=== PATIENT | male | born 1945 | race Caucasian/White ===

== ENCOUNTER 2016-07-09 01:57 | Inpatient (IN) | payer MEDICARE, BC ==
[2016-07-09] MEDS ORDERED: ceFAZolin 1,000 MG in DEXTROSE/WATER 1 50ML.BAG IVPB STA (02:07)
[2016-07-09] MEDS ORDERED: DIPH,PERTUS(ACELL)TETVAC-LF 0.5 ML VIAL IM ONE (02:07)
[2016-07-09 02:33] VITALS: RESP 18
[2016-07-09 02:39] LABS: ALT 33 U/L (21-72); AST 18 U/L (17-59); Alcohol <10 mg/dL; Alkaline Phosphatase 57 U/L (38-126); Amylase 45 U/L (30-110); Anion Gap 11 mmol/L; Blood Urea Nitrogen 14 mg/dL (9-20); Calcium 8.4 mg/dL (8.4-10.2); Carbon Dioxide 25 mmol/L (22-30); Chloride 107 mmol/L (98-107); Glucose 112 mg/dL (74-99); Non-African American GFR(MDRD) >60 (>60 ml/min/1.73 sqM); Potassium 3.4 mmol/L (3.5-5.1); Sodium 143 mmol/L (137-145); Total Bilirubin 1.3 mg/dL (0.2-1.3); Total Protein 6.3 g/dL (6.3-8.2)
[2016-07-09 02:40] LABS: Basophils # (A) 0.1 k/uL (0-0.2); Basophils % (A) 1 %; CH 31.2; CHCM 33.7; Eosinophils # (A) 0.1 k/uL (0-0.7); Eosinophils % (A) 2 %; HCT 54.8 % (39.0-53.0); Luc # (Auto) 0.24; Luc % (Auto) 3; Lymphocytes # (A) 2.1 k/uL (1.0-4.8); Lymphocytes % (A) 24 %; MCH 30.7 pg (25.0-35.0); MCHC 32.9 g/dL (31.0-37.0); MCV 93.3 fL (80.0-100.0); Mean Platelet Volume 8.1; Monocytes # (A) 0.7 k/uL (0-1.0); Monocytes % (A) 8 %; Neutrophils # (A) 5.4 k/uL (1.3-7.7); Neutrophils % (A) 63 %; RBC 5.88 m/uL (4.30-5.90); RDW 13.2 % (11.5-15.5); WBC 8.6 k/uL (3.8-10.6); WBC (Perox) 8.54
[2016-07-09] MEDS ORDERED: HYDROmorphone 1 MG/ML 1 ML SYRINGE IVP STA (02:42)
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
[2016-07-09 02:48] LABS: Creatine Kinase 56 U/L (55-170)
[2016-07-09] MEDS ORDERED: ONDANSETRON 4 MG/2 ML VIAL IVP PRN (02:58)
[2016-07-09 03:00] LABS: Partial Thromboplastin Time 32.6 sec (22.0-30.0); Prothrombin Time 54.4 sec (9.0-12.0)
[2016-07-09 03:01] LABS: INR 5.4 (<1.1)
[2016-07-09 03:02] LABS: Troponin I <0.012 ng/mL (0.000-0.034)
[2016-07-09] MEDS ORDERED: PHYTONADIONE ORAL 5 MG/5 ML ORAL.SYRG PO STA (03:04)
[2016-07-09] MEDS ORDERED: DILTIAZEM 5 MG/ML 5 ML VIAL IVP STA (03:10)
[2016-07-09] MEDS ORDERED: DIGOXIN 250 MCG/ML 2 ML AMP IVP ONE (03:16)
[2016-07-09] MEDS ORDERED: METOPROLOL SUCCINATE (ER) 25 MG TAB.ER.24H PO STA (03:19)
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
[2016-07-09] MEDS ORDERED: NALOXONE 0.4 MG/ML 1 ML VIAL IV PRN (03:45)
[2016-07-09] MEDS ORDERED: DILTIAZEM 125 MG in SODIUM CHLORIDE 0.9% 100 ML IV ONE (04:18)
[2016-07-09] MEDS: HYDROmorphone 1 MG/ML 1 ML SYRINGE IVP PRN ×7 (04:42→23:34)
[2016-07-09 06:00] VITALS: BMI 22.1
[2016-07-09] MEDS: D5-0.45% NACL WITH KCL 20MEQ/L 1,000 ML IV SCH ×2 (06:17→18:31)
[2016-07-09 06:27] LABS: CH 31.4; CHCM 34.1; HGB 16.7 gm/dL (13.0-17.5); MCH 30.3 pg (25.0-35.0); MCHC 32.7 g/dL (31.0-37.0); MCV 92.6 fL (80.0-100.0); Mean Platelet Volume 8.8; RBC 5.51 m/uL (4.30-5.90); RDW 13.5 % (11.5-15.5); WBC 10.5 k/uL (3.8-10.6)
[2016-07-09] MEDS: ceFAZolin 1,000 MG in DEXTROSE/WATER 1 50ML.BAG IVPB SCH ×4 (06:32→23:34)
[2016-07-09 06:39] LABS: Potassium 4.1 mmol/L (3.5-5.1)
[2016-07-09 06:44] LABS: INR 4.5 (<1.1); Prothrombin Time 44.8 sec (9.0-12.0)
[2016-07-09] MEDS ORDERED: FAMOTIDINE 20 MG/2 ML VIAL IV SCH (09:00)
[2016-07-09] MEDS: PHYTONADIONE ORAL 5 MG/5 ML ORAL.SYRG PO SCH ×2 (14:01→21:20)
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
[2016-07-09 16:13] LABS: Amorphous Sediment,Urine Rare /hpf; Appearance,Urine Clear (Clear); Bilirubin,Urine Negative (Negative); Calcium Oxalate Crystals,Urine Occasional /hpf; Glucose,Urine (UA) Negative (Negative); Ketones,Urine 1+ (Negative); Leukocyte Esterase,Urine Negative (Negative); Nitrite,Urine Negative (Negative); PH, Urine 5.5 (5.0-8.0); Particle Count 1060; Protein,Urine Negative (Negative); RBC,Urine 2 /hpf (0-5); UA Billing (MACRO vs. MICRO) MICRO; Urobilinogen,Urine <2.0 mg/dL (<2.0); WBC,Urine 2 /hpf (0-5)
[2016-07-09] MEDS: LISINOPRIL 10 MG TAB PO SCH (17:33)
[2016-07-09] MEDS: DIGOXIN 125 MCG TAB PO SCH (17:33)
[2016-07-09] MEDS: ATORVASTATIN 10 MG TAB PO SCH (21:20)
[2016-07-09] MEDS: METOPROLOL TARTRATE 50 MG TAB PO SCH (21:20)
[2016-07-09] MEDS: FAMOTIDINE 20 MG TAB PO SCH (21:21)
[2016-07-10] MEDS: HYDROmorphone 1 MG/ML 1 ML SYRINGE IVP PRN ×5 (04:58→21:29)
[2016-07-10] MEDS: D5-0.45% NACL WITH KCL 20MEQ/L 1,000 ML IV SCH ×2 (04:59→21:30)
[2016-07-10] MEDS: ceFAZolin 1,000 MG in DEXTROSE/WATER 1 50ML.BAG IVPB SCH ×4 (06:34→23:24)
[2016-07-10] MEDS: DIGOXIN 125 MCG TAB PO SCH (08:28)
[2016-07-10] MEDS: LISINOPRIL 10 MG TAB PO SCH (08:29)
[2016-07-10] MEDS: FAMOTIDINE 20 MG TAB PO SCH ×2 (08:29→21:28)
[2016-07-10] MEDS: METOPROLOL TARTRATE 50 MG TAB PO SCH ×2 (08:43→21:28)
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
--- NOTE | 2016-07-10 10:57 | ECHOF ---
Referral Reason:afib MEASUREMENTS -------- HEIGHT: 188.0 cm WEIGHT: 79.4 kg BP: 119/66 RVIDd: 3.1 cm (< 3.3) IVSd: 1.1 cm (0.6 - 1.1) LVIDd: 4.2 cm (3.9 - 5.3) LVPWd: 1.1 cm (0.6 - 1.1) IVSs: 1.9 cm LVIDs: 3.1 cm LVPWs: 1.8 cm LA Diam: 4.0 cm (2.7 - 3.8) LAESV Index (A-L): 17.48 ml/m LA Diam: 4.2 cm (2.7 - 3.8) MV EXCURSION: 21.844 mm (> 18.000) MV EF SLOPE: 193 mm/s (70 - 150) EPSS: 0.6 cm MV E Jamie: 0.94 m/s MV DecT: 158 ms MV A Jamie: 0.33 m/s MV E/A Ratio: 2.81 FINDINGS -------- Atrial fibrillation. This was a technically difficult study with suboptimal apical views. There is borderline concentric left ventricular hypertrophy. Overall left ventricular systolic function is normal with, an EF between 55 - 60 %. The right ventricle is normal in size. The left atrium is mildly dilated. The right atrial size is normal. Aortic valve is trileaflet and is mildly thickened. The mitral valve leaflets are mildly thickened. Mild mitral annular calcification present. There is trace mitral regurgitation. Trace tricuspid regurgitation present. The pulmonic valve was not well visualized. The aortic root size is normal. The inferior vena cava is dilated with no significant inspiratory collapse which is consistent estimated right atrial pressure of >15 mmHg. Echo free space may represent effusion or a pericardial fat pad. CONCLUSIONS -------- 1. Atrial fibrillation. 2. Mild mitral annular calcification present. 3. There is trace mitral regurgitation. 4. Trace tricuspid regurgitation present. 5. The pulmonic valve was not well visualized. 6. The aortic root size is normal. 7. The inferior vena cava is dilated with no significant inspiratory collapse which is consistent estimated right atrial pressure of >15 mmHg. 8. Echo free space may represent effusion or a pericardial fat pad. 9. This was a technically difficult study with suboptimal apical views. 10. There is borderline concentric left ventricular hypertrophy. 11. Overall left ventricular systolic function is normal with, an EF between 55 - 60 %. 12. The right ventricle is normal in size. 13. The left atrium is mildly dilated. 14. The right atrial size is normal. 15. Aortic valve is trileaflet and is mildly thickened. 16. The mitral valve leaflets are mildly thickened. 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
[2016-07-10 11:40] LABS: Hemoglobin A1C 5.5 % (4.2-6.1)
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
[2016-07-10 14:39] LABS: INR 1.3 (<1.1); Prothrombin Time 12.5 sec (9.0-12.0)
[2016-07-10] MEDS: ATORVASTATIN 10 MG TAB PO SCH (21:28)
[2016-07-10] MEDS: HYDROcodone/APAP 5-325MG 1 EACH TAB PO PRN (23:23)
[2016-07-11] MEDS: HYDROmorphone 1 MG/ML 1 ML SYRINGE IVP PRN (03:33)
[2016-07-11] MEDS: HYDROcodone/APAP 5-325MG 1 EACH TAB PO PRN (06:04)
[2016-07-11] MEDS: D5-0.45% NACL WITH KCL 20MEQ/L 1,000 ML IV SCH (06:05)
[2016-07-11] MEDS: ceFAZolin 1,000 MG in DEXTROSE/WATER 1 50ML.BAG IVPB SCH ×2 (06:05→11:22)
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
[2016-07-11] MEDS: METOPROLOL TARTRATE 50 MG TAB PO SCH (08:46)
[2016-07-11] MEDS: FAMOTIDINE 20 MG TAB PO SCH (08:46)
[2016-07-11] MEDS: LISINOPRIL 10 MG TAB PO SCH (08:46)
[2016-07-11] MEDS: DIGOXIN 125 MCG TAB PO SCH (08:46)
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
[2016-07-11 14:36] VITALS: BP 156/86; PULSE 86; TEMP 98
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
== END 2016-07-11 13:12 | disposition home or self-care (01) | DRG 563 ==
LOC: EC 01:57 → 6SEL 02:52
PROVIDERS: ADMIT Surgery; ATTEND Surgery
PROC: 3E0234Z Introduction of Serum, Toxoid and Vaccine into Muscle, Percutaneous Approach (ICD-10-PCS; principal; 2016-07-09)
PROC: 2W3JX1Z Immobilization of Right Finger using Splint (ICD-10-PCS; 2016-07-09)
DX: S62.612B Displaced fracture of proximal phalanx of right middle finger, initial encounter for open fracture (principal); I95.9 Hypotension, unspecified; I48.2 Chronic atrial fibrillation; I48.1 Persistent atrial fibrillation; J44.9 Chronic obstructive pulmonary disease, unspecified; Z89.611 Acquired absence of right leg above knee; D75.1 Secondary polycythemia; I25.10 Atherosclerotic heart disease of native coronary artery without angina pectoris; T46.4X5A Adverse effect of angiotensin-converting-enzyme inhibitors, initial encounter; R79.1 Abnormal coagulation profile; T45.515A Adverse effect of anticoagulants, initial encounter; S61.220A Laceration with foreign body of right index finger without damage to nail, initial encounter; I10 Essential (primary) hypertension; S66.911A Strain of unspecified muscle, fascia and tendon at wrist and hand level, right hand, initial encounter; I73.9 Peripheral vascular disease, unspecified; I45.10 Unspecified right bundle-branch block; R40.2410 Glasgow coma scale score 13-15, unspecified time; M16.0 Bilateral primary osteoarthritis of hip; F32.9 Major depressive disorder, single episode, unspecified; F43.10 Post-traumatic stress disorder, unspecified; K21.9 Gastro-esophageal reflux disease without esophagitis; G47.30 Sleep apnea, unspecified; E78.5 Hyperlipidemia, unspecified; N40.0 Benign prostatic hyperplasia without lower urinary tract symptoms; F17.200 Nicotine dependence, unspecified, uncomplicated; H91.90 Unspecified hearing loss, unspecified ear; Z79.01 Long term (current) use of anticoagulants; Z79.02 Long term (current) use of antithrombotics/antiplatelets; Z91.041 Radiographic dye allergy status; Z86.718 Personal history of other venous thrombosis and embolism; Z82.49 Family history of ischemic heart disease and other diseases of the circulatory system; Z95.5 Presence of coronary angioplasty implant and graft; Z88.2 Allergy status to sulfonamides; Z87.828 Personal history of other (healed) physical injury and trauma; Z87.01 Personal history of pneumonia (recurrent); Z91.040 Latex allergy status; Z79.891 Long term (current) use of opiate analgesic; Z79.899 Other long term (current) drug therapy; Z23 Encounter for immunization; Z81.8 Family history of other mental and behavioral disorders; Z63.4 Disappearance and death of family member; Z95.820 Peripheral vascular angioplasty status with implants and grafts; Y22.XXXA Handgun discharge, undetermined intent, initial encounter; Y92.9 Unspecified place or not applicable; S20.319A Abrasion of unspecified front wall of thorax, initial encounter
CPT/HCPCS: 36415; 71010; 80051; 80053; 80162; 80306; 80320; 81001; 82150; 82550; 82553; 83036; 83690; 84439; 84443; 84484; 85025; 85027; 85610; 85730; 86850; 86900; 86901; 90471; 90715; 93005; 93306; 96365; 96367; 96375; 96376; 99291

== ENCOUNTER → 2018-01-17 | Outpatient (CLI) | payer MEDICARE, BC ==
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
== END | disposition home or self-care (01) ==
LOC: RADXRMAIN 10:02
PROVIDERS: ATTEND Internal Medicine
DX: M12.811 Other specific arthropathies, not elsewhere classified, right shoulder (principal); J43.9 Emphysema, unspecified; S22.41XA Multiple fractures of ribs, right side, initial encounter for closed fracture

== ENCOUNTER 2019-01-05 15:50 | Emergency (ER) | payer MEDICARE, BC ==
[2019-01-05 16:04] VITALS: BP 145/74; PULSE 78; RESP 18; TEMP 98.3
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
--- NOTE | 2019-01-05 17:49 | XR ---
EXAMINATION TYPE: XR Hip LT and AP Pelvis DATE OF EXAM: 01/05/2019 COMPARISON: NONE HISTORY: Trauma and pain TECHNIQUE: A single AP view of the pelvis is obtained. Two views of the left hip are obtained. FINDINGS: There is no acute fracture/dislocation evident in the pelvis. The hip and sacroiliac join ts appear symmetric and unremarkable. The overlying soft tissue appears unremarkable. Two views of left hip show no acute fracture or dislocation. No focal lytic or sclerotic lesion seen in the proximal left femur. The overlying soft tissue is unremarkable. There is joint space loss a nd subchondral sclerosis in the left hip, prominence of the femoral neck laterally may be indicative of femoral acetabular impingement. Patient shows aorta stent graft changes, embolization along the in ternal iliac artery on the right. Scattered metallic densities bilaterally. IMPRESSION: There is no acute fracture or dislocation in the pelvis or left hip. 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
--- NOTE | 2019-01-05 17:55 | XR ---
Chest x-ray with left RIBS HISTORY: Trauma and pain Frontal view of the chest, 4 views of the left ribs submitted and correlated to prior chest x-ray 06/12 Metallic foreign bodies over the right chest are stable. No evident airspace disease, pneumothorax, o r pleural effusion. There is elevation of the right hemidiaphragm. Cardiomediastinal silhouette, pulm onary vascularity and elaine are stable. No displaced rib fracture. Postop changes noted in the abdomen , patient is post aortic stent graft. IMPRESSION: Postop changes, posttraumatic changes are chronic. Bone scan could be performed for incre ased sensitivity to assess for nondisplaced fracture of the ribs as indicated.
[2019-01-05] MEDS ORDERED: IBUPROFEN 800 MG TAB PO STA (17:58)
== END 2019-01-05 18:24 | disposition home or self-care (01) ==
LOC: EC 15:50
DX: S20.212A Contusion of left front wall of thorax, initial encounter (principal); S70.02XA Contusion of left hip, initial encounter; I48.91 Unspecified atrial fibrillation; G47.30 Sleep apnea, unspecified; E78.5 Hyperlipidemia, unspecified; F17.200 Nicotine dependence, unspecified, uncomplicated; Z79.01 Long term (current) use of anticoagulants; Z79.899 Other long term (current) drug therapy; Z79.02 Long term (current) use of antithrombotics/antiplatelets; Z95.5 Presence of coronary angioplasty implant and graft; Z89.611 Acquired absence of right leg above knee; Z95.828 Presence of other vascular implants and grafts; Z86.718 Personal history of other venous thrombosis and embolism; W19.XXXA Unspecified fall, initial encounter; Y92.009 Unspecified place in unspecified non-institutional (private) residence as the place of occurrence of the external cause
CPT/HCPCS: 73502; 99283

== ENCOUNTER 2022-11-21 10:08 | Emergency (ER) | payer MEDICARE, BC ==
[2022-11-21 10:24] VITALS: TEMP 97.9
[2022-11-21 12:07] LABS: Basophils % (A) 1 %; Eosinophils # (A) 0.2 k/uL (0-0.7); Eosinophils % (A) 2 %; HCT 47.7 % (39.0-53.0); HGB 15.5 gm/dL (13.0-17.5); Lymphocytes # (A) 1.2 k/uL (1.0-4.8); Lymphocytes % (A) 18 %; MCH 29.8 pg (25.0-35.0); MCHC 32.4 g/dL (31.0-37.0); MCV 91.8 fL (80.0-100.0); Mean Platelet Volume 8.2; Monocytes # (A) 0.6 k/uL (0-1.0); Monocytes % (A) 9 %; Neutrophils # (A) 4.7 k/uL (1.3-7.7); Neutrophils % (A) 69 %; Platelet Count 166 k/uL (150-450); RDW 14.3 % (11.5-15.5); WBC 6.8 k/uL (3.8-10.6)
--- NOTE | 2022-11-21 12:22 | XR ---
EXAMINATION TYPE: XR foot complete LT, XR ankle complete LT DATE OF EXAM: 11/21/2022 11:57 AM INDICATION: Patient age:Male; 77 years old; Reason for study: L inner ankle wound; PHH. COMPARISON: None TECHNIQUE: The left foot and ankle are examined in the AP, oblique, and lateral projections. FINDINGS: No evidence of any acute osseous pathology. No osseous erosions. No radiopaque foreign body. Soft ti ssue defect along the medial aspect of the left ankle. Joints are preserved. IMPRESSION: 1. No evidence of acute fracture or osseous erosions. 2. Soft tissue wound along the medial aspect of the left ankle. No radiopaque foreign body.
[2022-11-21 12:25] LABS: ALT 14 U/L (4-49); AST 18 U/L (17-59); African American GFR (CKD) >90 (>60 ml/min/1.73 sqM); Albumin 3.5 g/dL (3.5-5.0); Alkaline Phosphatase 60 U/L (38-126); Anion Gap 7 mmol/L; Blood Urea Nitrogen 10 mg/dL (9-20); Calcium 8.8 mg/dL (8.4-10.2); Carbon Dioxide 27 mmol/L (22-30); Chloride 101 mmol/L (98-107); Glucose 87 mg/dL (74-99); Non-African American GFR(CKD) 78 (>60 ml/min/1.73 sqM); Potassium 4.5 mmol/L (3.5-5.1); Sodium 135 mmol/L (137-145); Total Bilirubin 1.5 mg/dL (0.2-1.3); Total Protein 5.8 g/dL (6.3-8.2)
[2022-11-21] MEDS ORDERED: NEOMYCIN-BACITRACIN-POLY OINT 14 GM TUBE TOPICAL STA (14:00)
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
[2022-11-21 14:45] VITALS: BP 134/78; PULSE 74; RESP 18
== END 2022-11-21 14:45 | disposition home or self-care (01) ==
LOC: EC 10:08
DX: L03.119 Cellulitis of unspecified part of limb (principal); I48.91 Unspecified atrial fibrillation; E78.5 Hyperlipidemia, unspecified; G47.30 Sleep apnea, unspecified; F32.A Depression, unspecified; F17.200 Nicotine dependence, unspecified, uncomplicated; Z79.01 Long term (current) use of anticoagulants; Z79.899 Other long term (current) drug therapy
CPT/HCPCS: 36415; 80053; 83605; 85025; 87040; 99283

== ENCOUNTER 2023-03-25 14:06 | Inpatient (IN) | payer MEDICARE, BC ==
[2023-03-25] MEDS ORDERED: SODIUM CHLORIDE 0.9% 1,000 ML IV STA (14:26)
[2023-03-25 15:13] LABS: Basophils % (A) 0 %; Eosinophils # (A) 0.1 k/uL (0-0.7); Eosinophils % (A) 1 %; HCT 41.7 % (39.0-53.0); HGB 14.1 gm/dL (13.0-17.5); Lymphocytes # (A) 1.7 k/uL (1.0-4.8); Lymphocytes % (A) 9 %; MCH 31.3 pg (25.0-35.0); MCHC 33.9 g/dL (31.0-37.0); MCV 92.4 fL (80.0-100.0); Mean Platelet Volume 9.8; Monocytes # (A) 1.6 k/uL (0-1.0); Monocytes % (A) 8 %; Neutrophils # (A) 16.2 k/uL (1.3-7.7); Neutrophils % (A) 81 %; Platelet Count 151 k/uL (150-450); RBC 4.51 m/uL (4.30-5.90); WBC 20.1 k/uL (3.8-10.6)
[2023-03-25] MEDS ORDERED: DILTIAZEM DRIP BOLUS FROM BAG 1 MG SOLN IV ONE (15:20)
[2023-03-25 15:23] LABS: ALT 19 U/L (4-49); AST 21 U/L (17-59); African American GFR (CKD) 27 (>60 ml/min/1.73 sqM); Albumin 3.9 g/dL (3.5-5.0); Alkaline Phosphatase 50 U/L (38-126); Anion Gap 12 mmol/L; Blood Urea Nitrogen 64 mg/dL (9-20); Carbon Dioxide 25 mmol/L (22-30); Chloride 95 mmol/L (98-107); Glucose 131 mg/dL (74-99); INR 3.5 (<1.2); Magnesium 2.4 mg/dL (1.6-2.3); Non-African American GFR(CKD) 23 (>60 ml/min/1.73 sqM); Partial Thromboplastin Time 34.3 sec (22.0-30.0); Phosphorus 5.8 mg/dL (2.5-4.5); Potassium 4.3 mmol/L (3.5-5.1); Prothrombin Time 34.6 sec (10.0-12.5); Sodium 132 mmol/L (137-145); Total Bilirubin 2.3 mg/dL (0.2-1.3); Total Protein 6.2 g/dL (6.3-8.2)
[2023-03-25] MEDS: DILTIAZEM 125 MG in SODIUM CHLORIDE 0.9% 100 ML IV SCH (15:51)
--- NOTE | 2023-03-25 15:57 | ED ---
Fall HPI - General Chief Complaint: Fall Stated Complaint: falling down daily Time Seen by Provider: 03/25/23 14:18 Source: patient, family, RN notes reviewed Mode of arrival: ambulatory Limitations: physical limitation - History of Present Illness Initial Comments: 77-year-old male presents emergency Department chief complaint of generalized weakness, increasing fallen. Patient states that he normally is in his wheelchair as she's had a right AKA patient states she's been using some crutches and states that he notices had increased weakness, . He states they have a fall complaint of bilateral hip, groin pain, head pain. Reports his been very confused and taken his medications well, eating and drinking patient has been some palpitations. Patient denies chest pain - Related Data Home Medications Medication Instructions Recorded Confirmed Atorvastatin [Lipitor] 10 mg PO DAILY 07/09/16 03/25/23 Digoxin [Digitek] 125 mcg PO DAILY 07/09/16 03/25/23 Warfarin [Coumadin] 5 mg PO DAILY 01/05/19 03/25/23 Metoprolol Tartrate [Lopressor] 50 mg PO DAILY 03/25/23 03/25/23 lisinopriL [Zestril] 10 mg PO DAILY 03/25/23 03/25/23 Allergies Allergy/AdvReac Type Severity Reaction Status Date / Time No Known Allergies Allergy Verified 03/25/23 18:20 Review of Systems ROS Statement: Those systems with pertinent positive or pertinent negative responses have been documented in the HPI. ROS Other: All systems not noted in ROS Statement are negative. Past Medical History Past Medical History: Atrial Fibrillation, Deep Vein Thrombosis (DVT), GERD/Reflux, Hearing Disorder / Deafness, Hyperlipidemia, Osteoarthritis (OA), Pneumonia, Prostate Disorder, Sleep Apnea/CPAP/BIPAP Additional Past Medical History / Comment(s): DVT History of Any Multi-Drug Resistant Organisms: None Reported Past Surgical History: Heart Catheterization With Stent Additional Past Surgical History / Comment(s): femerol bypass right and left, removed steel from right lung and retired up diaphram, right above knee amputee Date of Last Stent Placement:: unknown Past Psychological History: Depression, PTSD Smoking Status: Current some day smoker Past Alcohol Use History: Occasional Past Drug Use History: None Reported - Past Family History Mother Family Medical History: Myocardial Infarction ([place]) Father Family Medical History: Dementia General Exam Limitations: no limitations General appearance: alert, in no apparent distress Head exam: Present: atraumatic, normocephalic, normal inspection Eye exam: Present: normal appearance, PERRL, EOMI. Absent: scleral icterus, conjunctival injection, periorbital swelling ENT exam: Present: normal exam, normal oropharynx, mucous membranes moist Neck exam: Present: normal inspection, full ROM. Absent: tenderness, meningismus, lymphadenopathy Respiratory exam: Present: normal lung sounds bilaterally. Absent: respiratory distress, wheezes, rales, rhonchi, stridor Cardiovascular Exam: Present: regular rate, normal rhythm, normal heart sounds. Absent: systolic murmur, diastolic murmur, rubs, gallop, clicks GI/Abdominal exam: Present: soft, normal bowel sounds. Absent: distended, tenderness, guarding, rebound, rigid Neurological exam: Present: alert Skin exam: Present: warm, dry, intact, normal color. Absent: rash Course Vital Signs 03/25/23 03/25/23 03/25/23 14:08 15:19 15:30 Temperature 98 F Pulse Rate 52 L 138 H 125 H Respiratory 20 13 17 Rate Blood Pressure 118/74 123/81 O2 Sat by Pulse 96 63 L 94 L Oximetry 03/25/23 03/25/23 03/25/23 16:00 16:30 17:00 Temperature Pulse Rate 114 H 111 H Respiratory 15 17 Rate Blood Pressure 132/69 120/87 O2 Sat by Pulse 95 Oximetry 03/25/23 03/25/23 17:30 18:00 Temperature 98.9 F Pulse Rate 107 H 115 H Respiratory 20 16 Rate Blood Pressure 126/69 O2 Sat by Pulse 97 Oximetry Medical Decision Making - Medical Decision Making Was pt. sent in by a medical professional or institution (, PA, DEPUTY CLERK OF SUPERIOR COURT, urgent care, hospital, or half-way...) When possible be specific @ -No Did you speak to anyone other than the patient for history (EMS, parent, family, police, friend...)? What history was obtained from this source @ -Family providing past medical history Did you review nursing and triage notes (agree or disagree)? Why? @ -I reviewed and agree with nursing and triage notes Were old charts reviewed (outside hosp., previous admission, EMS record, old EKG, old radiological studies, urgent care reports/EKG's, half-way records)? Report findings @ -No old charts were reviewed Differential Diagnosis (chest pain, altered mental status, abdominal pain women, abdominal pain men, vaginal bleeding, weakness, fever, dyspnea, syncope, headache, dizziness, GI bleed, back pain, seizure, CVA, palpatations, mental health, musculoskeletal)? @ -Differential Weakness: Hypoglycemia, shock, sepsis, hyponatremia, anemia, infection, [place], ETOH, adverse medicine reaction, overdose, stroke, this is not meant to be an all-inclusive list.le EKG interpreted by me (3pts min.). @ -As above X-rays interpreted by me (1pt min.). @ -Pelvis x-ray shows no acute process, chest x-ray no acute process CT interpreted by me (1pt min.). @ -CT brain, C-spine shows no intracranial hemorrhage, mass effect or cervical fracture U/S interpreted by me (1pt. min.). @ -None done What testing was considered but not performed or refused? (CT, X-rays, U/S, labs)? Why? @ -None What meds were considered but not given or refused? Why? @ -None Did you discuss the management of the patient with other professionals (professionals i.e. , PA, DEPUTY CLERK OF SUPERIOR COURT, lab, RT, psych nurse, social sciences chair, bearingizer, teacher, mounted police officer, case management social worker)? Give summary @ -No Was smoking cessation discussed for >3mins.? @ -No Was critical care preformed (if so, how long)? @ -[35 Were there social determinants of health that impacted care today? How? (Homelessness, low income, unemployed, alcoholism, drug addiction, transportation, low edu. Level, literacy, decrease access to med. care, [facility], rehab)? @ -No Was there de-escalation of care discussed even if they declined (Discuss DNR or withdrawal of care, Hospice)? DNR status @ -No What co-morbidities impacted this encounter? (DM, HTN, Smoking, COPD, CAD, Cancer, CVA, ARF, Chemo, Hep., AIDS, mental health diagnosis, sleep apnea, morbid obesity)? @ -Vascular disease, hyperlipidemia A. fib Was patient admitted / discharged? Hospital course, mention meds given and route, prescriptions, significant lab abnormalities, going to OR and other pertinent info. @ -admitted patient's found to be in A. fib RVR, acute dehydration with significant leukocytosis and acute renal failure. Patient started on maintenanc e fluids, Cardizem there is no source for patient's leukocytosis at this time patient still pending urinalysis. Undiagnosed new problem with uncertain prognosis? @ -No Drug Therapy requiring intensive monitoring for toxicity (Heparin, Nitro, I nsulin, Cardizem)? @ -Cardizem Were any procedures done? @ -No Diagnosis/symptom? @ -Acute kidney injury, A. fib RVR, weakness, falls Acute, or Chronic, or Acute on Chronic? @ -Acute Uncomplicated (without systemic symptoms) or Complicated (systemic symptoms)? @ -[Complicated Side effects of treatment? @ -No Exacerbation, Progression, or Severe Exacerbation? @ -No Poses a threat to life or bodily function? How? (Chest pain, [place], [place], pneumonia, PE, COPD, DKA, ARF, appy, cholecystitis, CVA, Diverticulitis, Homicidal, Suicidal, threat to staff... and all critical care pts) @ -Yes - Lab Data Result diagrams: 03/25/23 14:55 03/26/23 08:51 Lab Results 03/25/23 03/25/23 03/25/23 Range/Units 14:55 14:55 14:55 WBC 20.1 H (3.8-10.6) k/uL RBC 4.51 (4.30-5.90) m/uL Hgb 14.1 (13.0-17.5) gm/dL Hct 41.7 (39.0-53.0) % MCV 92.4 (80.0-100.0) fL MCH 31.3 (25.0-35.0) pg MCHC 33.9 (31.0-37.0) g/dL RDW 14.0 (11.5-15.5) % Plt Count 151 (150-450) k/uL MPV 9.8 Neutrophils % 81 % Lymphocytes % 9 % Monocytes % 8 % Eosinophils % 1 % Basophils % 0 % Neutrophils # 16.2 H (1.3-7.7) k/uL Lymphocytes # 1.7 (1.0-4.8) k/uL Monocytes # 1.6 H (0-1.0) k/uL Eosinophils # 0.1 (0-0.7) k/uL Basophils # 0.0 (0-0.2) k/uL PT 34.6 H (10.0-12.5) sec INR 3.5 H (<1.2) APTT 34.3 H (22.0-30.0) sec Sodium 132 L (137-145) mmol/L Potassium 4.3 (3.5-5.1) mmol/L Chloride 95 L (98-107) mmol/L Carbon Dioxide 25 (22-30) mmol/L Anion Gap 12 mmol/L BUN 64 H (9-20) mg/dL Creatinine 2.59 H (0.66-1.25) mg/dL Est GFR (CKD-EPI)AfAm 27 (>60 ml/min/1.73 sqM) Est GFR (CKD-EPI)NonAf 23 (>60 ml/min/1.73 sqM) Glucose 131 H (74-99) mg/dL Lactic Ac Sepsis Rflx Plasma Lactic Acid Aiden (0.7-2.0) mmol/L Calcium 9.0 (8.4-10.2) mg/dL Phosphorus 5.8 H (2.5-4.5) mg/dL Magnesium 2.4 H (1.6-2.3) mg/dL Total Bilirubin 2.3 H (0.2-1.3) mg/dL AST 21 (17-59) U/L ALT 19 (4-49) U/L Alkaline Phosphatase 50 (38-126) U/L Troponin I (0.000-0.034) ng/mL Total Protein 6.2 L (6.3-8.2) g/dL Albumin 3.9 (3.5-5.0) g/dL 03/25/23 03/25/23 03/25/23 Range/Units 14:55 14:55 16:04 WBC (3.8-10.6) k/uL RBC (4.30-5.90) m/uL Hgb (13.0-17.5) gm/dL Hct (39.0-53.0) % MCV (80.0-100.0) fL MCH (25.0-35.0) pg MCHC (31.0-37.0) g/dL RDW (11.5-15.5) % Plt Count (150-450) k/uL MPV Neutrophils % % Lymphocytes % % Monocytes % % Eosinophils % % Basophils % % Neutrophils # (1.3-7.7) k/uL Lymphocytes # (1.0-4.8) k/uL Monocytes # (0-1.0) k/uL Eosinophils # (0-0.7) k/uL Basophils # (0-0.2) k/uL PT (10.0-12.5) sec INR (<1.2) APTT (22.0-30.0) sec Sodium (137-145) mmol/L Potassium (3.5-5.1) mmol/L Chloride (98-107) mmol/L Carbon Dioxide (22-30) mmol/L Anion Gap mmol/L BUN (9-20) mg/dL Creatinine (0.66-1.25) mg/dL Est GFR (CKD-EPI)AfAm (>60 ml/min/1.73 sqM) Est GFR (CKD-EPI)NonAf (>60 ml/min/1.73 sqM) Glucose (74-99) mg/dL Lactic Ac Sepsis Rflx Y Plasma Lactic Acid Aiden 3.4 H* (0.7-2.0) mmol/L Calcium (8.4-10.2) mg/dL Phosphorus (2.5-4.5) mg/dL Magnesium (1.6-2.3) mg/dL Total Bilirubin (0.2-1.3) mg/dL AST (17-59) U/L ALT (4-49) U/L Alkaline Phosphatase (38-126) U/L Troponin I 0.023 (0.000-0.034) ng/mL Total Protein (6.3-8.2) g/dL Albumin (3.5-5.0) g/dL - EKG Data -: EKG Interpreted by Me EKG Comments: EKG performed at 15:10 atrial fibrillation with a rate of 125 QRS 100 QTC/QTc 272/347 Critical Care Time Critical Care Time: Yes Total Critical Care Time: 35 Disposition Clinical Impression: Multiple falls, Atrial fibrillation with RVR, Acute kidney injury, Leukocytosis Disposition: ADMITTED IP TO THIS [facility] Condition: [facility] Time of Disposition: 17:40
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
--- NOTE | 2023-03-25 17:08 | XR ---
EXAMINATION TYPE: XR pelvis AP view DATE OF EXAM: 03/25/2023 4:05 PM CLINICAL INDICATION:Male, 77 years old with history of fall; [facility] COMPARISON: 01/19/2015 TECHNIQUE: The pelvis was examined in a single projection. FINDINGS: No definite acute fracture lucency or significant malalignment. Degenerative changes of the left more than right femoral acetabular joint. Distal end of aortoiliac stent graft again seen, with likely vascular coils in the right pelvis. Surgical clips in the mid to lower pelvis and bilateral i nguinal regions. IMPRESSION: No acute fracture or dislocation identified, on this single view of the pelvis.
[2023-03-25] MEDS ORDERED: NALOXONE 0.4 MG/ML 1 ML VIAL IV PRN (17:40)
[2023-03-25] MEDS ORDERED: ACETAMINOPHEN TAB 325 MG TAB PO PRN (17:40)
[2023-03-25] MEDS ORDERED: FAMOTIDINE 20 MG/2 ML VIAL IV STA (18:21)
[2023-03-25] MEDS ORDERED: CALCIUM CARBONATE 500 MG CHEWABLE PO PRN (18:21)
[2023-03-25] MEDS: SODIUM CHLORIDE 0.9% 1,000 ML IV SCH (18:29)
--- NOTE | 2023-03-25 18:35 | CT ---
EXAMINATION TYPE: CT brain cspine wo con CT DLP: mGycm, Automated exposure control for dose reduction was used. DATE OF EXAM: 03/25/2023 4:26 PM COMPARISON: None. CLINICAL INDICATION:Male, 77 years old with history of pain; TECHNIQUE: Brain: Multiple axial CT images of the brain were obtained without IV contrast. Cspine: Axial CT images from the skull base to the inferior aspect of T2 we obtained without intraven ous contrast. Coronal and sagittal reformatted images were also reviewed. FINDINGS: Brain: Extra-axial spaces: No abnormal extra-axial fluid collections. Ventricular system: Dilatation in proportion to cerebral atrophy. Cerebral parenchyma: No acute intraparenchymal hemorrhage or mass effect. The guy-white junction is well differentiated. Moderate generalized atrophy. Focal atrophy or possible arachnoid cyst along th e right posterior falx. Patchy white matter hypoattenuation throughout the bilateral cerebral white m atter, nonspecific most likely related to chronic microvascular ischemic changes. Cerebellum: Moderate atrophy. Mass effect: No evidence of midline shift. Intracranial vasculature: Atherosclerotic calcifications of the intracranial vessels, particularly ne ar the skull base. Soft tissues: Normal. Calvarium/osseous structures: No depressed skull fracture. Paranasal sinuses and mastoid air cells: Clear. Visualized orbits: Orbital contents are intact. Cervical spine: Fracture: None. Osseous structures, spinal canal/neural foraminal: Moderate multilevel degenerative disc disease with disc space narrowing and marginal osteophytosis greatest at the C4-C5, C5-C6, C6-C7 levels, with at least moderate canal and neural foraminal narrowing at these levels. Vertebral alignment: AP alignment appears within normal limits. Straightening of the normal cervical lordosis, likely degenerative. Neck soft tissues: Prevertebral soft tissues are within normal limits. Other: Visualized airway is patent. Moderate emphysematous changes in the lung apices. Atheroscleroti c calcifications along the aortic arch, bilateral cervical carotid arteries and right vertebral arter y. IMPRESSION: 1. No acute intracranial CT abnormality. 2. Moderate generalized brain atrophy and chronic microvascular ischemic changes. 3. No evidence of acute cervical spine fracture or traumatic malalignment. 4. Moderate cervical spondylosis. 5. Pulmonary emphysema.
[2023-03-25 20:11] LABS: Glucose,Whole Blood 178 mg/dL (70-110)
[2023-03-25] MEDS ORDERED: WARFARIN 0.5 MG TAB PO ONE (21:00)
[2023-03-26 06:05] LABS: Glucose,Whole Blood 129 mg/dL (70-110)
[2023-03-26] MEDS: INSULIN ASPART (NovoLOG) 100 UNIT/ML VIAL SQ SCH ×4 (06:29→20:42)
[2023-03-26] MEDS: DILTIAZEM 125 MG in SODIUM CHLORIDE 0.9% 100 ML IV SCH (06:31)
[2023-03-26] MEDS: SODIUM CHLORIDE 0.9% 1,000 ML IV SCH (06:32)
[2023-03-26] MEDS: DIGOXIN 125 MCG TAB PO SCH (08:18)
[2023-03-26] MEDS: METOPROLOL TARTRATE 50 MG TAB PO SCH ×2 (08:18→20:50)
[2023-03-26] MEDS ORDERED: METOPROLOL TARTRATE 50 MG TAB PO SCH (09:00)
[2023-03-26] MEDS ORDERED: ATORVASTATIN 10 MG TAB PO SCH (09:00)
[2023-03-26] MEDS ORDERED: lisinopriL 10 MG TAB PO SCH (09:00)
[2023-03-26] MEDS ORDERED: WARFARIN 5 MG TAB PO SCH (09:00)
--- NOTE | 2023-03-26 09:06 | XR ---
EXAMINATION TYPE: XR chest 1V portable DATE OF EXAM: 03/26/2023 COMPARISON: 03/25/2023 HISTORY: Cough TECHNIQUE: Single frontal view of the chest is obtained. FINDINGS: There are metallic foreign bodies overlying the right chest and abdomen. Limited inspirati on with subsegmental atelectasis at the left lung base. Underlying COPD. No pneumothorax or interstit ial edema. Bilateral AC joint arthropathy. Atherosclerotic changes of the aorta. IMPRESSION: 1. COPD with basilar atelectasis favored over pneumonia.
--- NOTE | 2023-03-26 09:28 | P.CRDCN ---
History of Present Illness History of present illness: HISTORY OF PRESENT ILLNESS: This is a 77-year-old male with a past medical history significant for right AKA, atrial fibrillation, hypertension, hyperlipidemia, and questionable CAD with multiple stenting per patient. Patient does not follow with a wrapper leaf inspector. We have been asked to see the patient in consultation for A. fib with RVR. Patient examined at the bedside. Patient initially presented to the hospital after sustaining a fall. He states that he fell at home on his concrete and laid there for 5-6 hours before he was able to get a neighbor to help him. The patient currently denies any chest pain or pressure. He reports having some mild shortness of breath at home recently but at the time of examination he denies any shortness of breath. He denies any dizziness or lightheadedness. He denies any palpitations. The patient was found to be in A. fib with RVR. He was started on IV Cardizem. This morning he remains in nature fibrillation with a heart rate around 100. His Cardizem drip is infusing at 10 mg an hour. Patient was also found to have acute kidney injury with a creatinine of 2.59 on admission and supratherapeutic INR with INR of 3.5. * EKG reveals atrial fibrillation with RVR * Chest xray negative for acute process * Laboratory data: WBC 20.1. Hemoglobin 14.1. Platelet count 151. INR 3.5. Sodium 132. Potassium 4.3. BUN 64. Creatinine 2.59. Troponin negative 3. * Current home cardiac medications include digoxin 125 g daily, Lipitor 10 mg daily, metoprolol tartrate 50 mg daily, lisinopril 10 mg daily, and warfarin 5 mg daily * Most recent echocardiogram obtained in 2017 revealed ejection fraction 55-60%, trace MR, trace TR * Cardiac catheterization history: Unknown REVIEW OF SYSTEMS: At the time of my exam: CONSTITUTIONAL: Denies fever or chills. HEENT: Denies blurred vision, vision changes, or eye pain. Denies hemoptysis CARDIOVASCULAR: Denies chest pain. Denies orthopnea. Denies PND. Denies palpitations RESPIRATORY: Denies shortness of breath. GASTROINTESTINAL: Denies abdominal pain. Denies nausea or vomiting. HEMATOLOGIC: Denies bleeding disorders. GENITOURINARY: Denies any blood in urine. SKIN: Denies pruitis. Denies rash. PHYSICAL EXAM: VITAL SIGNS: Reviewed. GENERAL: Well-developed in no acute distress. HEENT: Head is normocephalic. Pupils are equal, round. Sclerae anicteric. Mucous membranes of the mouth are moist. Neck supple. No JVD or thyromegaly LUNGS: Respirations even and unlabored. Lungs essentially clear to auscultation bilaterally. HEART: Regular rate and rhythm. S1 and S2 heard. ABDOMEN: Soft. Nondistended. Nontender. EXTREMITIES: Normal range of motion. No clubbing or cyanosis. Peripheral pulses intact. Right AKA. NEUROLOGIC: Awake and alert. Oriented x 3. ASSESSMENT: Status post mechanical fall Supratherapeutic INR, 3.5 on admission Acute kidney injury Leukocytosis Persistent atrial fibrillation with RVR Peripheral vascular disease History of right AKA Hypertension Hyperlipidemia Questionable history of CAD with previous stenting, per patient Nicotine dependence Depression PTSD PLAN: Obtain 2-D echo to assess cardiac structure and function Resume home cardiac medications Increase metoprolol tartrate 50 mg twice a day Wean off Cardizem drip Monitor INR. Coumadin per pharmacy. Continue telemetry monitoring Monitor kidney function. Hold lisinopril at this time secondary to MARIO Further recommendations pending patient's course Nurse practitioner note has been reviewed by physician. Signing provider agrees with the documented findings, assessment, and plan of care. Past Medical History Past Medical History: Atrial Fibrillation, Deep Vein Thrombosis (DVT), GERD/Reflux, Hearing Disorder / Deafness, Hyperlipidemia, Myocardial Infarction ([place]), Osteoarthritis (OA), Pneumonia, Sleep Apnea/CPAP/BIPAP Additional Past Medical History / Comment(s): DVT, STENTS PLACED 1974. Last Myocardial Infarction Date:: UNKNOWN History of Any Multi-Drug Resistant Organisms: None Reported Past Surgical History: Heart Catheterization With Stent Additional Past Surgical History / Comment(s): femerol bypass right and left, removed steel from right lung and retired up diaphram, right above knee amputee Past Anesthesia/Blood Transfusion Reactions: No Reported Reaction Date of Last Stent Placement:: 1975 Past Psychological History: Depression, PTSD Smoking Status: Current some day smoker Past Alcohol Use History: Occasional Past Drug Use History: None Reported - Past Family History Mother Family Medical History: Myocardial Infarction ([place]) Father Family Medical History: Dementia Medications and Allergies Home Medications Medication Instructions Recorded Confirmed Type Atorvastatin [Lipitor] 10 mg PO DAILY 07/09/16 03/25/23 History Digoxin [Digitek] 125 mcg PO DAILY 07/09/16 03/25/23 History Warfarin [Coumadin] 5 mg PO DAILY 01/05/19 03/25/23 History Metoprolol Tartrate [Lopressor] 50 mg PO DAILY 03/25/23 03/25/23 History lisinopriL [Zestril] 10 mg PO DAILY 03/25/23 03/25/23 History Allergies Allergy/AdvReac Type Severity Reaction Status Date / Time No Known Allergies Allergy Verified 03/25/23 18:20 Physical Exam Vitals: Vital Signs Temp Pulse Pulse Resp BP BP Pulse Ox 03/26/23 05:03 20 92 L 03/26/23 04:00 98.1 F 94 20 113/71 88 L 03/26/23 00:00 98.1 F 92 20 122/72 92 L 03/25/23 20:00 97.8 F 95 20 110/69 92 L 03/25/23 18:00 98.9 F 115 H 16 126/69 97 03/25/23 17:30 107 H 20 03/25/23 17:00 111 H 17 120/87 95 03/25/23 16:30 114 H 15 03/25/23 16:00 132/69 03/25/23 15:30 125 H 17 123/81 94 L 03/25/23 15:19 138 H 13 63 L 03/25/23 14:08 98 F 52 L 20 118/74 96 Intake and Output 03/25/23 03/26/23 03/26/23 22:59 06:59 14:59 Intake Total 249.833 112.167 Output Total 375 Balance 249.833 -262.833 Intake: Intake, IV Titration 12.833 112.167 Amount Diltiazem 125 mg In 12.3 112.167 Sodium Chloride 0.9% 100 ml @ 5 MG/HR 5 mls/hr IV .Q24H [facility] Rx#:[id number] Oral 237 Output: Urine 375 Other: # Voids 1 Weight 79.379 kg 65.5 kg Results 03/25/23 14:55 03/25/23 14:55 Cardiac Enzymes 03/25/23 03/25/23 03/25/23 Range/Units 14:55 14:55 18:34 AST 21 (17-59) U/L Troponin I 0.023 0.016 (0.000-0.034) ng/mL 03/25/23 Range/Units 20:47 AST (17-59) U/L Troponin I 0.014 (0.000-0.034) ng/mL Coagulation 03/25/23 Range/Units 14:55 PT 34.6 H (10.0-12.5) sec APTT 34.3 H (22.0-30.0) sec CBC 03/25/23 Range/Units 14:55 WBC 20.1 H (3.8-10.6) k/uL RBC 4.51 (4.30-5.90) m/uL Hgb 14.1 (13.0-17.5) gm/dL Hct 41.7 (39.0-53.0) % Plt Count 151 (150-450) k/uL Comprehensive Metabolic Panel 03/25/23 Range/Units 14:55 Sodium 132 L (137-145) mmol/L Potassium 4.3 (3.5-5.1) mmol/L Chloride 95 L (98-107) mmol/L Carbon Dioxide 25 (22-30) mmol/L BUN 64 H (9-20) mg/dL Creatinine 2.59 H (0.66-1.25) mg/dL Glucose 131 H (74-99) mg/dL Calcium 9.0 (8.4-10.2) mg/dL AST 21 (17-59) U/L ALT 19 (4-49) U/L Alkaline Phosphatase 50 (38-126) U/L Total Protein 6.2 L (6.3-8.2) g/dL Albumin 3.9 (3.5-5.0) g/dL Current Medications Generic Name Dose Route Start Last Admin Trade Name Freq PRN Reason Stop Dose Admin Acetaminophen 650 mg 03/25/23 17:40 Acetaminophen Tab 325 Mg Tab PO Q6HR PRN Mild Pain or Fever > 100.5 Atorvastatin Calcium 10 mg 03/26/23 09:00 Atorvastatin 10 Mg Tab PO DAILY [facility] Calcium Carbonate/Glycine 1,000 mg 03/25/23 18:21 03/25/23 22:52 Calcium Carbonate 500 Mg Chewable PO 1,000 mg QID PRN Administration Heartburn Digoxin 125 mcg 03/26/23 09:00 Digoxin 125 Mcg Tab PO DAILY [facility] Diltiazem HCl 125 mg/ Sodium 125 mls @ 5 mls/hr 03/25/23 15:30 03/26/23 06:31 Chloride IV 10 mg/hr .Q24H TYLOR 10 mls/hr Administration 5 MG/HR Sodium Chloride 1,000 mls @ 75 mls/hr 03/25/23 17:45 03/26/23 06:32 Saline 0.9% IV 75 mls/hr .[id number] TYLOR Administration Insulin Aspart 0 unit 03/26/23 07:30 03/26/23 06:29 Insulin Aspart (Novolog) 100 Unit/Ml Vial SQ Not Given ACHS [facility] Protocol Lisinopril 10 mg 03/26/23 09:00 Lisinopril 10 Mg Tab PO DAILY [facility] Metoprolol Tartrate 50 mg 03/26/23 09:00 Metoprolol Tartrate 50 Mg Tab PO DAILY [facility] Miscellaneous Information 0 each 03/25/23 20:52 Warfarin Per Pharmacy MISCELLANE DIRECTED PRN PER PROTOCOL Naloxone HCl 0.2 mg 03/25/23 17:40 Naloxone 0.4 Mg/Ml 1 Ml Vial IV Q2M PRN Opioid Reversal Intake and Output 03/25/23 03/26/23 03/26/23 22:59 06:59 14:59 Intake Total 249.833 112.167 Output Total 375 Balance 249.833 -262.833 Intake: Intake, IV Titration 12.833 112.167 Amount Diltiazem 125 mg In 12.833 112.167 Sodium Chloride 0.9% 100 ml @ 5 MG/HR 5 mls/hr IV .Q24H [facility] Rx#:[id number] Oral 237 Output: Urine 375 Other: # Voids 1 Weight 79.379 kg 65.5 kg 03/25/23 14:55 03/25/23 14:55
[2023-03-26 10:05] LABS: INR 3.6 (<1.2); Prothrombin Time 35.4 sec (10.0-12.5)
[2023-03-26 10:09] LABS: African American GFR (CKD) 48 (>60 ml/min/1.73 sqM); Anion Gap 10 mmol/L; Blood Urea Nitrogen 58 mg/dL (9-20); Calcium 8.2 mg/dL (8.4-10.2); Carbon Dioxide 22 mmol/L (22-30); Chloride 101 mmol/L (98-107); Glucose 127 mg/dL (74-99); Magnesium 2.4 mg/dL (1.6-2.3); Non-African American GFR(CKD) 42 (>60 ml/min/1.73 sqM); Potassium 4.1 mmol/L (3.5-5.1); Sodium 133 mmol/L (137-145)
[2023-03-26 11:14] LABS: Glucose,Whole Blood 147 mg/dL (70-110)
--- NOTE | 2023-03-26 11:24 | P.HPIM ---
History of Present Illness 77-year-old male who presented with atrial fibrillation does have known history of atrial fibrillation. Patient sustained fall and was complaining of generalized weakness patient has right bony amputation. He was also found to have elevated creatinine of 2.559, baseline being normal on losartan doesn't have any history of congestive heart failure. Blood pressure is low and losartan is being held and patient was bit hypotensive patient was on his continued in metoprolol dose was increased. Patient does have leukocytosis ches t x-ray showed atelectasis without any evidence of pneumonia patient denied any UTI symptoms. Patient is also hyponatremic. Pro-calcitonin level is being ordered. Patient is presently on oxygen doesn't usually use oxygen saturating at 93% on 2 L of oxygen REVIEW OF SYSTEMS: CONSTITUTIONAL: No fever, as mentioned in HPI HEENT: No recent visual problems or hearing problems. Denied any sore throat. CARDIOVASCULAR: No chest pain, orthopnea, PND, no palpitations, no syncope. PULMONARY: No shortness of breath, no cough, no hemoptysis. GASTROINTESTINAL: No diarrhea, no nausea, no vomiting, no abdominal pain. NEUROLOGICAL: No headaches, no weakness, no numbness. HEMATOLOGICAL: Denies any bleeding or petechiae. GENITOURINARY: Denies any burning micturition, frequency, or urgency. MUSCULOSKELETAL/RHEUMATOLOGICAL: Denies any joint pain, swelling, or any muscle pain. ENDOCRINE: Denies any polyuria or polydipsia. The rest of the 14-point review of systems is negative. PHYSICAL EXAMINATION: GENERAL: The patient is alert and oriented x3, not in any acute distress. Well developed, well nourished. HEENT: Pupils are round and equally reacting to light. EOMI. No scleral icterus. No conjunctival pallor. Normocephalic, atraumatic. No pharyngeal erythema. No thyromegaly. CARDIOVASCULAR: S1 and S2 present. No murmurs, rubs, or gallops. PULMONARY: Chest is clear to auscultation, no wheezing or crackles. ABDOMEN: Soft, nontender, nondistended, normoactive bowel sounds. No palpable organomegaly. MUSCULOSKELETAL: No joint swelling or deformity. EXTREMITIES: No cyanosis, clubbing, or pedal edema. NEUROLOGICAL: Gross neurological examination did not reveal any focal deficits. SKIN: No rashes. Assessment and plan -Atrial fibrillation with rapid ventricular rate secondary to dehydration intravascularly depletion, hypotension. Losartan is being held. Patient is receiving IV fluids at this time. Patient is on Coumadin, INR is therapeutic at 3.5 continue with Coumadin probably at a lower dose. Needed INR is 2-3. -Leukocytosis without any evidence of infection except for atelectasis leukocytosis may be secondary to fall will obtain Trocal sternal level patient is not on any antibiotics blood cultures were obtained and Persistent atrial fibrillation presently rapid ventricular rate Rate dose of metoprolol was increased Cardizem was discontinued. Titrate Coumadin -Acute renal failure secondary to losartan, patient was started on IV fluids patient has been azotemia. Baseline creatinine within normal limits continue with IV fluids -Hypervolemic hyponatremia expected to improve with IV fluids -Hypertension patient is presently hypotensive old off on losartan -Coronary artery disease stents in the past -Depression -Mechanical fall secondary to amputation status and generalized weakness physical that when outpatient therapy evaluation -History of PTSD -History of DVT in the past -Sleep apnea DVT prophylaxis: On anticoagulation Coumadin Past Medical History Past Medical History: Atrial Fibrillation, Deep Vein Thrombosis (DVT), GERD/Reflux, Hearing Disorder / Deafness, Hyperlipidemia, Myocardial Infarction ([place]), Osteoarthritis (OA), Pneumonia, Sleep Apnea/CPAP/BIPAP Additional Past Medical History / Comment(s): DVT, STENTS PLACED 1974. Last Myocardial Infarction Date:: UNKNOWN History of Any Multi-Drug Resistant Organisms: None Reported Past Surgical History: Heart Catheterization With Stent Additional Past Surgical History / Comment(s): femerol bypass right and left, removed steel from right lung and retired up diaphram, right above knee amputee Past Anesthesia/Blood Transfusion Reactions: No Reported Reaction Date of Last Stent Placement:: 1975 Past Psychological History: Depression, PTSD Smoking Status: Current some day smoker Past Alcohol Use History: Occasional Past Drug Use History: None Reported - Past Family History Mother Family Medical History: Myocardial Infarction ([place]) Father Family Medical History: Dementia Medications and Allergies Home Medications Medication Instructions Recorded Confirmed Type Atorvastatin [Lipitor] 10 mg PO DAILY 07/09/16 03/25/23 History Digoxin [Digitek] 125 mcg PO DAILY 07/09/16 03/25/23 History Warfarin [Coumadin] 5 mg PO DAILY 01/05/19 03/25/23 History Metoprolol Tartrate [Lopressor] 50 mg PO DAILY 03/25/23 03/25/23 History lisinopriL [Zestril] 10 mg PO DAILY 03/25/23 03/25/23 History Allergies Allergy/AdvReac Type Severity Reaction Status Date / Time No Known Allergies Allergy Verified 03/25/23 18:20 Physical Exam Vitals: Vital Signs Temp Pulse Pulse Pulse Resp BP BP 03/26/23 08:15 98 F 94 18 131/79 03/26/23 05:03 20 03/26/23 04:00 98.1 F 94 20 113/71 03/26/23 00:00 98.1 F 92 20 122/72 03/25/23 20:00 97.8 F 95 20 110/69 03/25/23 18:00 98.9 F 115 H 16 126/69 03/25/23 17:30 107 H 20 03/25/23 17:00 111 H 17 120/87 03/25/23 16:30 114 H 15 03/25/23 16:00 132/69 03/25/23 15:30 125 H 17 123/81 03/25/23 15:19 138 H 13 03/25/23 14:08 98 F 52 L 20 118/74 Pulse Ox 03/26/23 08:15 93 L 03/26/23 05:03 92 L 03/26/23 04:00 88 L 03/26/23 00:00 92 L 03/25/23 20:00 92 L 03/25/23 18:00 97 03/25/23 17:30 03/25/23 17:00 95 03/25/23 16:30 03/25/23 16:00 03/25/23 15:30 94 L 03/25/23 15:19 63 L 03/25/23 14:08 96 Intake and Output 03/25/23 03/26/23 03/26/23 22:59 06:59 14:59 Intake Total 249.833 112.167 22.916 Output Total 375 Balance 249.833 -262.833 22.916 Intake: Intake, IV Titration 12.3 112.167 22.916 Amount Diltiazem 125 mg In 12.3 112.167 22.916 Sodium Chloride 0.9% 100 ml @ 5 MG/HR 5 mls/hr IV .Q24H [facility] Rx#:[id number] Oral 237 Output: Urine 375 Other: # Voids 1 Weight 79.379 kg 65.5 kg Results CBC & Chem 7: 03/25/23 14:55 03/26/23 08:51 Labs: Abnormal Lab Results - Last 24 Hours (Table) 03/25/23 03/25/23 03/25/23 Range/Units 14:55 14:55 14:55 WBC 20.1 H (3.8-10.6) k/uL Neutrophils # 16.2 H (1.3-7.7) k/uL Monocytes # 1.6 H (0-1.0) k/uL PT 34.6 H (10.0-12.5) sec INR 3.5 H (<1.2) APTT 34.3 H (22.0-30.0) sec Sodium 132 L (137-145) mmol/L Chloride 95 L (98-107) mmol/L BUN 64 H (9-20) mg/dL Creatinine 2.59 H (0.66-1.25) mg/dL Glucose 131 H (74-99) mg/dL POC Glucose (mg/dL) (70-110) mg/dL Plasma Lactic Acid Aiden (0.7-2.0) mmol/L Calcium (8.4-10.2) mg/dL Phosphorus 5.8 H (2.5-4.5) mg/dL Magnesium 2.4 H (1.6-2.3) mg/dL Total Bilirubin 2.3 H (0.2-1.3) mg/dL Total Protein 6.2 L (6.3-8.2) g/dL 03/25/23 03/25/23 03/26/23 Range/Units 14:55 20:10 06:04 WBC (3.8-10.6) k/uL Neutrophils # (1.3-7.7) k/uL Monocytes # (0-1.0) k/uL PT (10.0-12.5) sec INR (<1.2) APTT (22.0-30.0) sec Sodium (137-145) mmol/L Chloride (98-107) mmol/L BUN (9-20) mg/dL Creatinine (0.66-1.25) mg/dL Glucose (74-99) mg/dL POC Glucose (mg/dL) 178 H 129 H (70-110) mg/dL Plasma Lactic Acid Aiden 3.4 H* (0.7-2.0) mmol/L Calcium (8.4-10.2) mg/dL Phosphorus (2.5-4.5) mg/dL Magnesium (1.6-2.3) mg/dL Total Bilirubin (0.2-1.3) mg/dL Total Protein (6.3-8.2) g/dL 03/26/23 03/26/23 03/26/23 Range/Units 08:51 08:51 11:11 WBC (3.8-10.6) k/uL Neutrophils # (1.3-7.7) k/uL Monocytes # (0-1.0) k/uL PT 35.4 H (10.0-12.5) sec INR 3.6 H (<1.2) APTT (22.0-30.0) sec Sodium 133 L (137-145) mmol/L Chloride (98-107) mmol/L BUN 58 H (9-20) mg/dL Creatinine 1.60 H (0.66-1.25) mg/dL Glucose 127 H (74-99) mg/dL POC Glucose (mg/dL) 147 H (70-110) mg/dL Plasma Lactic Acid Aiden (0.7-2.0) mmol/L Calcium 8.2 L (8.4-10.2) mg/dL Phosphorus (2.5-4.5) mg/dL Magnesium 2.4 H (1.6-2.3) mg/dL Total Bilirubin (0.2-1.3) mg/dL Total Protein (6.3-8.2) g/dL Thrombosis Risk Factor Assmnt - Choose All That Apply Each Risk Factor Represents 3 Points: Age 75 years or older, History of DVT/PE Other congenital or acquired thrombophilia - If yes, enter type in comment: No Thrombosis Risk Factor Assessment Total Risk Factor Score: 6 Thrombosis Risk Factor Assessment Level: High Risk
--- NOTE | 2023-03-26 11:52 | P.NPCON ---
History of Present Illness - Reason for Consult acute renal failure - History of Present Illness Reason for consultation: Acute kidney injury History of present illness: Patient is a 77-year-old male seen in renal consultation for acute kidney injury. Patient's creatinine in November 2022 was 0.95. This admission was elevated at 2.59 and is down to 1.6 today. Patient states he was trying to get into his wheelchair and slipped and fell. He has been voiding. Denies gross hematuria or dysuria. He denies syncopal episodes. He does have history of coronary artery disease. He denies use of nonsteroidals. Chest x-ray showed no evidence of fluid overload. No vomiting or diarrhea. Oral intake has been good. Blood pressure stable. He was on lisinopril outpatient which is currently held. He was noted to be in A. fib with RVR and is currently maintained on Cardizem drip. Denies palpitations. Denies history of diabetes. An ice family history of renal disease. Vital signs are stable. General: No acute distress. HEENT: Head exam is unremarkable. LUNGS: No audible rhonchi or wheezes. HEART: Rate and Rhythm are regular. ABDOMEN: Nontender. EXTREMITITES: No edema. Right BKA noted. Past Medical History Past Medical History: Atrial Fibrillation, Deep Vein Thrombosis (DVT), GERD/Reflux, Hearing Disorder / Deafness, Hyperlipidemia, Myocardial Infarction ([place]), Osteoarthritis ([place]), Pneumonia, Sleep Apnea/CPAP/BIPAP Additional Past Medical History / Comment(s): DVT, STENTS PLACED 1974. Last Myocardial Infarction Date:: UNKNOWN History of Any Multi-Drug Resistant Organisms: None Reported Past Surgical History: Heart Catheterization With Stent Additional Past Surgical History / Comment(s): femerol bypass right and left, re moved steel from right lung and retired up diaphram, right above knee amputee Past Anesthesia/Blood Transfusion Reactions: No Reported Reaction Date of Last Stent Placement:: 1975 Past Psychological History: Depression, PTSD Smoking Status: Current some day smoker Past Alcohol Use History: Occasional Past Drug Use History: None Reported - Past Family History Mother Family Medical History: Myocardial Infarction ([place]) Father Family Medical History: Dementia Medications and Allergies Home Medications Medication Instructions Recorded Confirmed Type Atorvastatin [Lipitor] 10 mg PO DAILY 07/09/16 03/25/23 History Digoxin [Digitek] 125 mcg PO DAILY 07/09/16 03/25/23 History Warfarin [Coumadin] 5 mg PO DAILY 01/05/19 03/25/23 History Metoprolol Tartrate [Lopressor] 50 mg PO DAILY 03/25/23 03/25/23 History lisinopriL [Zestril] 10 mg PO DAILY 03/25/23 03/25/23 History Allergies Allergy/AdvReac Type Severity Reaction Status Date / Time No Known Allergies Allergy Verified 03/25/23 18:20 Physical Exam Vitals: Vital Signs Temp Pulse Pulse Pulse Resp BP BP 03/26/23 08:15 98 F 94 18 131/79 03/26/23 05:03 20 03/26/23 04:00 98.1 F 94 20 113/71 03/26/23 00:00 98.1 F 92 20 122/72 03/25/23 20:00 97.8 F 95 20 110/69 03/25/23 18:00 98.9 F 115 H 16 126/69 03/25/23 17:30 107 H 20 03/25/23 17:00 111 H 17 120/87 03/25/23 16:30 114 H 15 03/25/23 16:00 132/69 03/25/23 15:30 125 H 17 123/81 03/25/23 15:19 138 H 13 03/25/23 14:08 98 F 52 L 20 118/74 Pulse Ox 03/26/23 08:15 93 L 03/26/23 05:03 92 L 03/26/23 04:00 88 L 03/26/23 00:00 92 L 03/25/23 20:00 92 L 03/25/23 18:00 97 03/25/23 17:30 03/25/23 17:00 95 03/25/23 16:30 03/25/23 16:00 03/25/23 15:30 94 L 03/25/23 15:19 63 L 03/25/23 14:08 96 Intake and Output 03/25/23 03/26/23 03/26/23 22:59 06:59 14:59 Intake Total 249.833 112.167 132.916 Output Total 375 Balance 249.833 -262.833 132.916 Intake: Intake, IV Titration 12.833 112.167 22.916 Amount Diltiazem 125 mg In 12.833 112.167 22.916 Sodium Chloride 0.9% 100 ml @ 5 MG/HR 5 mls/hr IV .Q24H [facility] Rx#:[id number] Oral 237 110 Output: Urine 375 Other: # Voids 1 Weight 79.379 kg 65.5 kg Results - Lab Results Most recent lab results Calcium 8.2 mg/dL (8.4-10.2) L 03/26/23 08:51 Phosphorus 5.8 mg/dL (2.5-4.5) H 03/25/23 14:55 Magnesium 2.4 mg/dL (1.6-2.3) H 03/26/23 08:51 03/25/23 14:55 03/26/23 08:51 Assessment and Plan Plan: Assessment: 1. Acute kidney injury secondary to vasomotor nephropathy secondary to hemodynamic instability. Creatinine 2.59 on admission and is 1.6 today. Baseline creatinine near 1 from November 2022. 2. Hypovolemic hyponatremia improved with IV fluids. 3. A. fib with RVR maintain on Cardizem drip. Also on digoxin and metoprolol. Cardiology following. 4. Status post right BKA. Plan: Maintain IV fluids. Continue to hold lisinopril. Avoid nephrotoxins. Continue to monitor renal function and urine output. Check urinalysis. Check renal ultrasound. Thank you for the consultation. I will continue to follow the patient with you during his hospital stay.
[2023-03-26 12:06] LABS: Appearance,Urine Clear (Clear); Bilirubin,Urine Negative (Negative); Blood,Urine Negative (Negative); Color,Urine Yellow; Glucose,Urine (UA) Negative (Negative); Ketones,Urine Negative (Negative); Leukocyte Esterase,Urine Negative (Negative); Nitrite,Urine Negative (Negative); PH, Urine 5.5 (5.0-8.0); Protein,Urine Trace (Negative)
--- NOTE | 2023-03-26 13:51 | US ---
EXAMINATION TYPE: US kidneys/renal and bladder DATE OF EXAM: 03/26/2023 COMPARISON: NONE CLINICAL INDICATION: Male, 77 years old with history of mario; MARIO. history of AAA. aortoiliac stent gr aft EXAM MEASUREMENTS: Right Kidney: 12.7 x 6.4 x 5.4 cm Left Kidney: 7.5 x 4.2 x 3.9 cm Right Kidney: anechoic lesion = 2.2 x 2.7 x 2.6cm Left Kidney: difficult to visualize, appears small in size, echogenic. anechoic lesion = 3.5 x 2.8 x 2.8cm Bladder: not fully distended Bilateral Jets seen: no *heterogeneous area adjacent to bladder, history of AAA with stent graft IMPRESSION: 1. Left kidney was difficult to visualize. Atrophic. Bilateral renal lesion is most typical of cysts. No obvious hydronephrosis. 2. There is a heterogeneous area\mass\complicated fluid collection adjacent to the bladder recommend CT of the abdomen and pelvis.
[2023-03-26] MEDS: ATORVASTATIN 40 MG TAB PO SCH (13:55)
[2023-03-26 16:09] LABS: Glucose,Whole Blood 156 mg/dL (70-110)
[2023-03-26] MEDS ORDERED: WARFARIN 0.5 MG TAB PO ONE (18:00)
[2023-03-26 20:02] LABS: Glucose,Whole Blood 95 mg/dL (70-110)
--- NOTE | 2023-03-26 23:58 | P.CONS ---
History of Present Illness - Reason for Consult Consult date: 03/26/23 - History of Present Illness Patient is a 77-year-old male with a past medical history significant for hyperlipidemia reflux DVT atrial fibrillation presenting to the hospital yesterday afternoon for evaluation of generalized weakness and falls patient did have a fall with injury and pain to bilateral hip area and apparently patient fell at home on his concrete and laid there for about 5 to 6 hours before [facility] patient was brought into the ER on presentation to the hospital the patient was afebrile and no fever; subsequently patient was not hypotensive or hypoxic patient did have white count of 20,000 with a left shift BUN/creatinine has been mildly elevated liver enzymes are normal urine has been negative chest x-ray no acute cardiopulmonary disease process, infectious w as consulted because of his elevated white count patient currently denies having any fever rigors or chills denies any headache or URI symptoms patient denies having any chest pain mild shortness of breath occasional cough has been complaining some vague lower abdominal pain more of a dull aching 5-6 of 10 no radiation and some pain to the hip area denies having any diarrhea or constipation no urinary symptoms Past Medical History Past Medical History: Atrial Fibrillation, Deep Vein Thrombosis (DVT), GERD/Reflux, Hearing Disorder / Deafness, Hyperlipidemia, Myocardial Infarction ([place]), Osteoarthritis ([place]), Pneumonia, Sleep Apnea/CPAP/BIPAP Additional Past Medical History / Comment(s): DVT, STENTS PLACED 1974. Last Myocardial Infarction Date:: UNKNOWN History of Any Multi-Drug Resistant Organisms: None Reported Past Surgical History: Heart Catheterization With Stent Additional Past Surgical History / Comment(s): femerol bypass right and left, removed steel from right lung and retired up diaphram, right above knee amputee Past Anesthesia/Blood Transfusion Reactions: No Reported Reaction Date of Last Stent Placement:: 1975 Past Psychological History: Depression, PTSD Smoking Status: Current some day smoker Past Alcohol Use History: Occasional Past Drug Use History: None Reported - Past Family History Mother Family Medical History: Myocardial Infarction ([place]) Father Family Medical History: Dementia Medications and Allergies Home Medications Medication Instructions Recorded Confirmed Type Atorvastatin [Lipitor] 10 mg PO DAILY 07/09/16 03/25/23 History Digoxin [Digitek] 125 mcg PO DAILY 07/09/16 03/25/23 History Warfarin [Coumadin] 5 mg PO DAILY 01/05/19 03/25/23 History Metoprolol Tartrate [Lopressor] 50 mg PO DAILY 03/25/23 03/25/23 History lisinopriL [Zestril] 10 mg PO DAILY 03/25/23 03/25/23 History Allergies Allergy/AdvReac Type Severity Reaction Status Date / Time No Known Allergies Allergy Verified 03/25/23 18:20 Physical Exam Vitals: Vital Signs Temp Pulse Pulse Pulse Resp BP BP 03/26/23 08:15 98 F 94 18 131/79 03/26/23 05:03 20 03/26/23 04:00 98.1 F 94 20 113/71 03/26/23 00:00 98.1 F 92 20 122/72 03/25/23 20:00 97.8 F 95 20 110/69 03/25/23 18:00 98.9 F 115 H 16 126/69 03/25/23 17:30 107 H 20 03/25/23 17:00 111 H 17 120/87 03/25/23 16:30 114 H 15 03/25/23 16:00 132/69 03/25/23 15:30 125 H 17 123/81 03/25/23 15:19 138 H 13 03/25/23 14:08 98 F 52 L 20 118/74 Pulse Ox 03/26/23 08:15 93 L 03/26/23 05:03 92 L 03/26/23 04:00 88 L 03/26/23 00:00 92 L 03/25/23 20:00 92 L 03/25/23 18:00 97 03/25/23 17:30 03/25/23 17:00 95 03/25/23 16:30 03/25/23 16:00 03/25/23 15:30 94 L 03/25/23 15:19 63 L 03/25/23 14:08 96 Intake and Output 03/25/23 03/26/23 03/26/23 22:59 06:59 14:59 Intake Total 249.833 112.167 22.916 Output Total 375 Balance 249.833 -262.833 22.916 Intake: Intake, IV Titration 12.3 112.167 22.916 Amount Diltiazem 125 mg In 12.3 112.167 22.916 Sodium Chloride 0.9% 100 ml @ 5 MG/HR 5 mls/hr IV .Q24H [facility] Rx#:[id number] Oral 237 Output: Urine 375 Other: # Voids 1 Weight 79.379 kg 65.5 kg Results CBC & Chem 7: 03/25/23 14:55 03/26/23 08:51 Labs: Abnormal Lab Results - Last 24 Hours (Table) 03/25/23 03/25/23 03/25/23 Range/Units 14:55 14:55 14:55 WBC 20.1 H (3.8-10.6) k/uL Neutrophils # 16.2 H (1.3-7.7) k/uL Monocytes # 1.6 H (0-1.0) k/uL PT 34.6 H (10.0-12.5) sec INR 3.5 H (<1.2) APTT 34.3 H (22.0-30.0) sec Sodium 132 L (137-145) mmol/L Chloride 95 L (98-107) mmol/L BUN 64 H (9-20) mg/dL Creatinine 2.59 H (0.66-1.25) mg/dL Glucose 131 H (74-99) mg/dL POC Glucose (mg/dL) (70-110) mg/dL Plasma Lactic Acid Aiden (0.7-2.0) mmol/L Calcium (8.4-10.2) mg/dL Phosphorus 5.8 H (2.5-4.5) mg/dL Magnesium 2.4 H (1.6-2.3) mg/dL Total Bilirubin 2.3 H (0.2-1.3) mg/dL Total Protein 6.2 L (6.3-8.2) g/dL 03/25/23 03/25/23 03/26/23 Range/Units 14:55 20:10 06:04 WBC (3.8-10.6) k/uL Neutrophils # (1.3-7.7) k/uL Monocytes # (0-1.0) k/uL PT (10.0-12.5) sec INR (<1.2) APTT (22.0-30.0) sec Sodium (137-145) mmol/L Chloride (98-107) mmol/L BUN (9-20) mg/dL Creatinine (0.66-1.25) mg/dL Glucose (74-99) mg/dL POC Glucose (mg/dL) 178 H 129 H (70-110) mg/dL Plasma Lactic Acid Aiden 3.4 H* (0.7-2.0) mmol/L Calcium (8.4-10.2) mg/dL Phosphorus (2.5-4.5) mg/dL Magnesium (1.6-2.3) mg/dL Total Bilirubin (0.2-1.3) mg/dL Total Protein (6.3-8.2) g/dL 03/26/23 03/26/23 Range/Units 08:51 08:51 WBC (3.8-10.6) k/uL Neutrophils # (1.3-7.7) k/uL Monocytes # (0-1.0) k/uL PT 35.4 H (10.0-12.5) sec INR 3.6 H (<1.2) APTT (22.0-30.0) sec Sodium 133 L (137-145) mmol/L Chloride (98-107) mmol/L BUN 58 H (9-20) mg/dL Creatinine 1.60 H (0.66-1.25) mg/dL Glucose 127 H (74-99) mg/dL POC Glucose (mg/dL) (70-110) mg/dL Plasma Lactic Acid Aiden (0.7-2.0) mmol/L Calcium 8.2 L (8.4-10.2) mg/dL Phosphorus (2.5-4.5) mg/dL Magnesium 2.4 H (1.6-2.3) mg/dL Total Bilirubin (0.2-1.3) mg/dL Total Protein (6.3-8.2) g/dL Assessment and Plan Plan: 1patient with a leukocytosis in this patient presented to hospital with weakness and multiple falls patient did have some bruising to the left lower abdominal area and also noticed to be slight tenderness concerning for possible intra-abdominal source. 2we will obtain a CT of the abdominal pelvis with oral contrast only 3-check blood cultures and inflammatory markers 4-empirically add Zosyn while waiting for the work-up to be completed We will follow on clinical condition and cultures to further adjust medication if needed Thank you for this consultation we will follow the patient along with you Dictation was produced using [employer] dictation software. please excuse any gram matical, word or spelling errors. Time with Patient: Greater than 30
[2023-03-27] MEDS: PIPERACILLIN-TAZOBACTAM 3.375 GM in SODIUM CHLORIDE 0.9% 100 ML IVPB SCH ×3 (00:18→17:48)
[2023-03-27 05:33] LABS: Glucose,Whole Blood 95 mg/dL (70-110)
[2023-03-27] MEDS: INSULIN ASPART (NovoLOG) 100 UNIT/ML VIAL SQ SCH ×4 (06:08→21:22)
[2023-03-27 07:09] LABS: INR 2.8 (<1.2); Prothrombin Time 27.4 sec (10.0-12.5)
[2023-03-27 07:35] LABS: HCT 27.5 % (39.0-53.0); MCH 31.3 pg (25.0-35.0); MCHC 34.2 g/dL (31.0-37.0); MCV 91.6 fL (80.0-100.0); Mean Platelet Volume 9.6; Platelet Count 150 k/uL (150-450); RDW 14.2 % (11.5-15.5); WBC 8.9 k/uL (3.8-10.6)
[2023-03-27 07:39] LABS: HGB 9.4 gm/dL (13.0-17.5)
[2023-03-27] MEDS: SODIUM CHLORIDE 0.9% 1,000 ML IV SCH ×2 (09:00→09:03)
[2023-03-27] MEDS: METOPROLOL TARTRATE 50 MG TAB PO SCH ×2 (09:03→21:27)
[2023-03-27] MEDS: DIGOXIN 125 MCG TAB PO SCH (09:03)
[2023-03-27] MEDS: ATORVASTATIN 40 MG TAB PO SCH (09:03)
[2023-03-27] MEDS: IOPAMIDOL CONTRAST (ORAL USE) VIAL PO PRN ×2 (10:23→11:09)
[2023-03-27 10:30] LABS: African American GFR (CKD) 59 (>60 ml/min/1.73 sqM); Anion Gap 4 mmol/L; Blood Urea Nitrogen 47 mg/dL (9-20); C Reactive Protein 4.8 mg/dL (<1.0); Calcium 7.9 mg/dL (8.4-10.2); Carbon Dioxide 24 mmol/L (22-30); Chloride 103 mmol/L (98-107); Glucose 85 mg/dL (74-99); Magnesium 2.4 mg/dL (1.6-2.3); Non-African American GFR(CKD) 51 (>60 ml/min/1.73 sqM); Potassium 3.9 mmol/L (3.5-5.1); Sodium 131 mmol/L (137-145)
--- NOTE | 2023-03-27 10:41 | P.PN ---
Subjective 77-year-old male who presented with atrial fibrillation does have known history of atrial fibrillation. Patient sustained fall and was complaining of generalized weakness patient has right bony amputation. He was also found to have elevated creatinine of 2.559, baseline being normal on losartan doesn't have any history of congestive heart failure. Blood pressure is low and losartan is being held and patient was bit hypotensive patient was on his continued in metoprolol dose was increased. Patient does have leukocytosis chest x-ray showed atelectasis without any evidence of pneumonia patient denied any UTI symptoms. Patient is also hyponatremic. Pro-calcitonin level is being ordered. Patient is presently on oxygen doesn't usually use oxygen saturating at 93% on 2 L of oxygen 03/27/2023 Patient will need to placement at rehabitation. Patient had an abdominal ultrasound which showed a collection behind the bladder because of his CT of the abdomen is being obtain his leukocytosis improved his heart rate is well controlled. Creatinine improved but his kidney function is not available from today. Constitutional: Denied any fatigue denied any fever. Cardio vascular: denied any chest pain, palpitations Gastrointestinal denied any nausea vomiting Pulmonary: Denied any shortness of breath cough Neurologic denied any new focal deficits All inpatient medications were reviewed and appropriate changes in these medications as dictated in the interval history and assessment and plan. PHYSICAL EXAMINATION: GENERAL: The patient is alert and oriented x3, not in any acute distress. Well developed, well nourished. HEENT: Pupils are round and equally reacting to light. EOMI. No scleral icterus. No conjunctival pallor. Normocephalic, atraumatic. No pharyngeal erythema. No thyromegaly. CARDIOVASCULAR: S1 and S2 present. No murmurs, rubs, or gallops. PULMONARY: Expiratory wheezing on exam ABDOMEN: Soft, nontender, nondistended, normoactive bowel sounds. No palpable organomegaly. MUSCULOSKELETAL: No joint swelling or deformity. EXTREMITIES: No cyanosis, clubbing, or pedal edema. NEUROLOGICAL: Gross neurological examination did not reveal any focal deficits. SKIN: No rashes. Assessment and plan -Atrial fibrillation with rapid ventricular rate secondary to dehydration intravascularly depletion, hypotension. Improved her today. Pharmacy to dose Coumadin. -Leukocytosis without any evidence of infection except for atelectasis leukocytosis may be reactive, incidental finding of a collection behind the bladder CT of the abdomen is being obtain -COPD with acute exacerbation: Patient was started on Pulmicort and inhalational treatments Persistent atrial fibrillation presently rate controlled continue with her present medications. -Acute renal failure secondary to losartan, patient was started on IV fluids patient has been azotemia. Kidney function improved as of yesterday creatinine is not available from today -Hypervolemic hyponatremia expected to improve with IV fluids -Hypertension patient is presently hypotensive old off on losartan -Coronary artery disease stents in the past -Depression -Mechanical fall secondary to amputation status and generalized weakness physical that when outpatient therapy evaluation -History of PTSD -History of DVT in the past -Sleep apnea DVT prophylaxis: On anticoagulation Coumadin Objective - Vital Signs Vital signs: Vital Signs Temp 98.5 F 03/27/23 08:31 Pulse 93 03/27/23 08:31 Resp 18 03/27/23 08:31 BP 117/53 03/27/23 08:31 Pulse Ox 93 L 03/27/23 08:31 FiO2 Intake & Output 03/26/23 03/27/23 03/27/23 18:59 06:59 18:59 Intake Total 242.916 110 Output Total 300 450 Balance -57.084 -450 110 Weight 65.5 kg 66.5 kg Intake: Intake, IV Titration 22.916 Amount Diltiazem 125 mg In 22.916 Sodium Chloride 0.9% 100 ml @ 5 MG/HR 5 mls/hr IV .Q24H [facility] Rx#:[id number] Oral 220 110 Output: Urine 300 450 Other: # Bowel Movements 1 - Labs CBC & Chem 7: 03/27/23 06:27 03/27/23 06:27 Labs: Abnormal Lab Results - Last 24 Hours (Table) 03/26/23 03/26/23 03/26/23 Range/Units 08:51 11:11 11:48 RBC (4.30-5.90) m/uL Hgb (13.0-17.5) gm/dL Hct (39.0-53.0) % PT (10.0-12.5) sec INR (<1.2) Sodium (137-145) mmol/L BUN (9-20) mg/dL Creatinine (0.66-1.25) mg/dL POC Glucose (mg/dL) 147 H (70-110) mg/dL Calcium (8.4-10.2) mg/dL Magnesium (1.6-2.3) mg/dL C-Reactive Protein (<1.0) mg/dL Procalcitonin 0.10 H (0.02-0.09) ng/mL Urine Protein Trace H (Negative) 03/26/23 03/27/23 03/27/23 Range/Units 16:03 06:27 06:27 RBC (4.30-5.90) m/uL Hgb (13.0-17.5) gm/dL Hct (39.0-53.0) % PT 27.4 H (10.0-12.5) sec INR 2.8 H (<1.2) Sodium 131 L (137-145) mmol/L BUN 47 H (9-20) mg/dL Creatinine 1.35 H (0.66-1.25) mg/dL POC Glucose (mg/dL) 156 H (70-110) mg/dL Calcium 7.9 L (8.4-10.2) mg/dL Magnesium 2.4 H (1.6-2.3) mg/dL C-Reactive Protein 4.8 H (<1.0) mg/dL Procalcitonin (0.02-0.09) ng/mL Urine Protein (Negative) 03/27/23 Range/Units 06:27 RBC 3.00 L (4.30-5.90) m/uL Hgb 9.4 L D (13.0-17.5) gm/dL Hct 27.5 L (39.0-53.0) % PT (10.0-12.5) sec INR (<1.2) Sodium (137-145) mmol/L BUN (9-20) mg/dL Creatinine (0.66-1.25) mg/dL POC Glucose (mg/dL) (70-110) mg/dL Calcium (8.4-10.2) mg/dL Magnesium (1.6-2.3) mg/dL C-Reactive Protein (<1.0) mg/dL Procalcitonin (0.02-0.09) ng/mL Urine Protein (Negative)
--- NOTE | 2023-03-27 11:09 | P.PN ---
Subjective Patient is seen in follow-up for acute kidney injury. Renal function improving. Hemodynamically stable. Admits to good urine output. No vomiting or diarrhea. Vital signs are stable. General: No acute distress. HEENT: Head exam is unremarkable. LUNGS: No audible rhonchi or wheezes. HEART: Rate and Rhythm are regular. ABDOMEN: nNontender. EXTREMITITES: Right BKA. Objective - Vital Signs Vital signs: Vital Signs Temp 98.5 F 03/27/23 08:31 Pulse 93 03/27/23 08:31 Resp 18 03/27/23 08:31 BP 117/53 03/27/23 08:31 Pulse Ox 93 L 03/27/23 08:31 FiO2 Intake & Output 03/26/23 03/27/23 03/27/23 18:59 06:59 18:59 Intake Total 242.916 110 Output Total 300 450 200 Balance -57.084 -450 -90 Weight 65.5 kg 66.5 kg Intake: Intake, IV Titration 22.916 Amount Diltiazem 125 mg In 22.916 Sodium Chloride 0.9% 100 ml @ 5 MG/HR 5 mls/hr IV .Q24H [facility] Rx#:[id number] Oral 220 110 Output: Urine 300 450 200 Other: # Bowel Movements 1 - Labs CBC & Chem 7: 03/27/23 06:27 03/27/23 06:27 Labs: Abnormal Lab Results - Last 24 Hours (Table) 03/26/23 03/26/23 03/26/23 Range/Units 08:51 11:11 11:48 RBC (4.30-5.90) m/uL Hgb (13.0-17.5) gm/dL Hct (39.0-53.0) % PT (10.0-12.5) sec INR (<1.2) Sodium (137-145) mmol/L BUN (9-20) mg/dL Creatinine (0.66-1.25) mg/dL POC Glucose (mg/dL) 147 H (70-110) mg/dL Calcium (8.4-10.2) mg/dL Magnesium (1.6-2.3) mg/dL C-Reactive Protein (<1.0) mg/dL Procalcitonin 0.10 H (0.02-0.09) ng/mL Urine Protein Trace H (Negative) 03/26/23 03/27/23 03/27/23 Range/Units 16:03 06:27 06:27 RBC (4.30-5.90) m/uL Hgb (13.0-17.5) gm/dL Hct (39.0-53.0) % PT 27.4 H (10.0-12.5) sec INR 2.8 H (<1.2) Sodium 131 L (137-145) mmol/L BUN 47 H (9-20) mg/dL Creatinine 1.35 H (0.66-1.25) mg/dL POC Glucose (mg/dL) 156 H (70-110) mg/dL Calcium 7.9 L (8.4-10.2) mg/dL Magnesium 2.4 H (1.6-2.3) mg/dL C-Reactive Protein 4.8 H (<1.0) mg/dL Procalcitonin (0.02-0.09) ng/mL Urine Protein (Negative) 03/27/23 Range/Units 06:27 RBC 3.00 L (4.30-5.90) m/uL Hgb 9.4 L D (13.0-17.5) gm/dL Hct 27.5 L (39.0-53.0) % PT (10.0-12.5) sec INR (<1.2) Sodium (137-145) mmol/L BUN (9-20) mg/dL Creatinine (0.66-1.25) mg/dL POC Glucose (mg/dL) (70-110) mg/dL Calcium (8.4-10.2) mg/dL Magnesium (1.6-2.3) mg/dL C-Reactive Protein (<1.0) mg/dL Procalcitonin (0.02-0.09) ng/mL Urine Protein (Negative) Assessment and Plan Plan: Assessment: 1. Acute kidney injury secondary to vasomotor nephropathy secondary to hemodynamic instability. Creatinine 2.59 on admission and is 1.35 today. Baseline creatinine near 1 from November 2022. UA fairly benign. No hydronephrosis noted on kidney ultrasound. Left kidney atrophic. 2. Hypovolemic hyponatremia initially improved with IV fluids. Sodium level CXXXI today. 3. A. fib with RVR s/p Cardizem drip. On digoxin and metoprolol. Cardiology following. 4. Status post right BKA. Plan: Hep-Lock IV fluids. Continue to hold lisinopril as blood pressure in the lower side. Avoid nephrotoxins. Continue to monitor renal function and urine output. Follow-up echocardiogram and CAT scan.
[2023-03-27] MEDS: IPRATROPIUM-ALBUTEROL 3 ML NEB INHALATION SCH ×3 (11:10→21:55)
[2023-03-27 11:14] LABS: Glucose,Whole Blood 124 mg/dL (70-110)
--- NOTE | 2023-03-27 13:28 | CA ---
Transthoracic Echo Report Name: Joaquin Fofana Age: 77 Gender: M : 1945 Exam Date: 03/27/2023 08:00 Exam Location: [place] [facility] Ht (in): 72 Wt (lb): 144 Ordering Physician: Chika Pratt Attending/Referring Phys: [id number], [place] Clinical Appeals Specialist Ashley Couch [facility] Procedure CPT: Indications: LV function, AF Cardiac Hx: Technical Quality: Contrast 1: Total Dose (mL): Contrast 2: Total Dose (mL): MEASUREMENTS (Male / Female) Normal Values 2D ECHO LV Diastolic Diameter PLAX 4.6 cm 4.2 - 5.9 / 3.9 - 5.3 cm LV Systolic Diameter PLAX 3.5 cm IVS Diastolic Thickness 1.2 cm 0.6 - 1.0 / 0.6 - 0.9 cm LVPW Diastolic Thickness 1.1 cm 0.6 - 1.0 / 0.6 - 0.9 cm LV Relative Wall Thickness 0.5 LVOT Diameter 2.0 cm LV Diastolic Volume MOD BP 96.5 cm??? 67 - 155 / 56 - 104 cm??? LV Systolic Volume MOD BP 45.8 cm??? 22 - 58 / 19 - 49 cm??? LV Ejection Fraction MOD BP 52.5 % >= 55 % LV Diastolic Volume MOD 4C 86.9 cm??? LV Systolic Volume MOD 4C 41.6 cm??? LV Ejection Fraction MOD 4C 52.1 % LV Diastolic Length 4C 7.4 cm LV Systolic Length 4C 6.1 cm LV Diastolic Volume MOD 2C 99.2 cm??? LV Systolic Volume MOD 2C 44.4 cm??? LV Ejection Fraction MOD 2C 55.2 % LV Diastolic Length 2C 8.1 cm LV Systolic Length 2C 6.9 cm M-MODE Aortic Root Diameter MM 2.7 cm LA Systolic Diameter MM 4.9 cm LA Ao Ratio MM 1.8 AV Cusp Separation MM 1.5 cm DOPPLER AV Peak Velocity 169.9 cm/s AV Peak Gradient 11.6 mmHg AV Mean Velocity 116.7 cm/s AV Mean Gradient 5.9 mmHg AV Velocity Time Integral 25.6 cm LVOT Peak Velocity 122.8 cm/s LVOT Peak Gradient 6.0 mmHg LVOT Velocity Time Integral 14.5 cm LVOT Stroke Volume 46.6 cm??? LVOT Stroke Volume Index 25.2 ml/m??? AV Area Cont Eq vti 1.8 cm??? AV Area Cont Eq pk 2.3 cm??? Mitral E Point Velocity 66.0 cm/s MV Deceleration Time 207.0 ms LV E' Lateral Velocity 14.7 cm/s Mitral E to LV E' Lateral Ratio 4.5 LV E' Septal Velocity 11.8 cm/s Mitral E to LV E' Septal Ratio 5.6 TR Peak Velocity 297.6 cm/s TR Peak Gradient 35.4 mmHg Right Atrial Pressure 3.0 mmHg Pulmonary Artery Systolic Pressu 38.4 mmHg Right Ventricular Systolic Press 40.4 mmHg FINDINGS Left Ventricle Mildly increased septal wall thickness. Left ventricular cavity size normal. Low normal left ventricular systolic function. Hypokinetic mid-basal inferior wall. Left ventricular ejection fraction is estimated at 50-55%. Right Ventricle Severe right ventricular dilatation. Mild pulmonary hypertension. Right Atrium Severe right atrial dilatation. Left Atrium Severe left atrial dilatation. Mitral Valve Mitral valve thickened. Trace mitral regurgitation. Aortic Valve Trileaflet aortic valve. Diffuse thickening of the aortic valve cusps with reduced excursion. Aortic valve sclerosis. No aortic regurgitation. Tricuspid Valve Structurally normal tricuspid valve. Mild tricuspid regurgitation. Pulmonic Valve Pulmonic valve not well visualized. Pericardium No pericardial effusion. Aorta Normal size aortic root. CONCLUSIONS Normal LV systolic function Inferior hypokinesis Biatrial enlargement Enlarged right ventricle Previewed by: Dr. Wallace Juarez MD (Electronically Signed) Final Date: 27 March 2023 13:27
--- NOTE | 2023-03-27 13:47 | P.PN ---
Subjective HISTORY OF PRESENT ILLNESS: This is a 77-year-old male with a past medical history significant for right AKA, atrial fibrillation, hypertension, hyperlipidemia, and questionable CAD with multiple stenting per patient. Patient does not follow with a medical staff coordinator. We have been asked to see the patient in consultation for A. fib with RVR. Patient examined at the bedside. Patient initially presented to the hospital after sustaining a fall. He states that he fell at home on his concrete and laid there for 5-6 hours before he was able to get a neighbor to help him. The patient currently denies any chest pain or pressure. He reports having some mild shortness of breath at home recently but at the time of examination he denies any shortness of breath. He denies any dizziness or lightheadedness. He denies any palpitations. The patient was found to be in A. fib with RVR. He was started on IV Cardizem. This morning he remains in nature fibrillation with a heart rate around 100. His Cardizem drip is infusing at 10 mg an hour. Patient was also found to have acute kidney injury with a creatinine of 2.59 on admission and supratherapeutic INR with INR of 3.5. * EKG reveals atrial fibrillation with RVR * Chest xray negative for acute process * Laboratory data: WBC 20.1. Hemoglobin 14.1. Platelet count 151. INR 3.5. Sodium 132. Potassium 4.3. BUN 64. Creatinine 2.59. Troponin negative 3. * Current home cardiac medications include digoxin 125 g daily, Lipitor 10 mg daily, metoprolol tartrate 50 mg daily, lisinopril 10 mg daily, and warfarin 5 mg daily * Most recent echocardiogram obtained in 2017 revealed ejection fraction 55-60%, trace MR, trace TR * Cardiac catheterization history: Unknown 03/27/2023 Patient examined this morning at the bedside. Patient currently denies any chest pain or pressure. He denies any shortness of breath. Telemetry reveals atrial fibrillation with a heart rate in the 70s. Echocardiogram completed revealing ejection fraction 50-55%, hypokinetic mid basilar inferior wall, mild pulmonary hypertension, trace mitral regurgitation, mild tricuspid regurgitation. PHYSICAL EXAM: VITAL SIGNS: Reviewed. GENERAL: Well-developed in no acute distress. HEENT: Head is normocephalic. Pupils are equal, round. Sclerae anicteric. Mucous membranes of the mouth are moist. Neck supple. No JVD or thyromegaly LUNGS: Respirations even and unlabored. Lungs essentially clear to auscultation bilaterally. HEART: Regular rate and rhythm. S1 and S2 heard. ABDOMEN: Soft. Nondistended. Nontender. EXTREMITIES: Normal range of motion. No clubbing or cyanosis. Peripheral pulses intact. Right AKA. NEUROLOGIC: Awake and alert. Oriented x 3. ASSESSMENT: Status post mechanical fall Supratherapeutic INR, 3.5 on admission Acute kidney injury Leukocytosis Persistent atrial fibrillation with RVR Peripheral vascular disease History of right AKA Hypertension Hyperlipidemia Questionable history of CAD with previous stenting, per patient Nicotine dependence Depression PTSD PLAN: Continue current cardiac medications Resume Coumadin. Monitor INR. Continue telemetry monitoring Monitor kidney function. Hold lisinopril at this time secondary to MARIO. Further recommendations pending patient's course Nurse practitioner note has been reviewed by physician. Signing provider agrees with the documented findings, assessment, and plan of care. Objective - Vital Signs Vital signs: Vital Signs Temp 97.4 F L 03/27/23 11:51 Pulse 72 03/27/23 11:51 Resp 18 03/27/23 11:51 BP 110/63 03/27/23 11:51 Pulse Ox 97 03/27/23 11:51 FiO2 21 03/27/23 11:10 Intake & Output 03/26/23 03/27/23 03/27/23 18:59 06:59 18:59 Intake Total 242.916 110 Output Total 300 450 200 Balance -57.084 -450 -90 Weight 65.5 kg 66.5 kg Intake: Intake, IV Titration 22.916 Amount Diltiazem 125 mg In 22.916 Sodium Chloride 0.9% 100 ml @ 5 MG/HR 5 mls/hr IV .Q24H [facility] Rx#:[id number] Oral 220 110 Output: Urine 300 450 200 Other: # Bowel Movements 1 3 - Labs CBC & Chem 7: 03/27/23 06:27 03/27/23 06:27 Labs: Abnormal Lab Results - Last 24 Hours (Table) 03/26/23 03/26/23 03/27/23 Range/Units 08:51 16:03 06:27 RBC (4.30-5.90) m/uL Hgb (13.0-17.5) gm/dL Hct (39.0-53.0) % PT 27.4 H (10.0-12.5) sec INR 2.8 H (<1.2) Sodium (137-145) mmol/L BUN (9-20) mg/dL Creatinine (0.66-1.25) mg/dL POC Glucose (mg/dL) 156 H (70-110) mg/dL Calcium (8.4-10.2) mg/dL Magnesium (1.6-2.3) mg/dL C-Reactive Protein (<1.0) mg/dL Procalcitonin 0.10 H (0.02-0.09) ng/mL 03/27/23 03/27/23 03/27/23 Range/Units 06:27 06:27 11:09 RBC 3.00 L (4.30-5.90) m/uL Hgb 9.4 L D (13.0-17.5) gm/dL Hct 27.5 L (39.0-53.0) % PT (10.0-12.5) sec INR (<1.2) Sodium 131 L (137-145) mmol/L BUN 47 H (9-20) mg/dL Creatinine 1.35 H (0.66-1.25) mg/dL POC Glucose (mg/dL) 124 H (70-110) mg/dL Calcium 7.9 L (8.4-10.2) mg/dL Magnesium 2.4 H (1.6-2.3) mg/dL C-Reactive Protein 4.8 H (<1.0) mg/dL Procalcitonin (0.02-0.09) ng/mL
--- NOTE | 2023-03-27 14:23 | CT ---
EXAMINATION TYPE: CT abdomen pelvis wo con CT DLP: 483.9 mGycm, Automated exposure control for dose reduction was used. DATE OF EXAM: 03/27/2023 2:01 PM COMPARISON: CT abdomen pelvis 01/27/2013 CLINICAL INDICATION:Male, 77 years old with history of abd pain; Abdominal pain TECHNIQUE: Standard CT of the abdomen and pelvis following the administration of oral contrast. Cor onal and sagittal reformats were performed. FINDINGS: LOWER CHEST: Linear scarring within the left lower lobe. Moderate coronary tear calcifications. Aorti c valvular calcifications. Mild bilateral gynecomastia. Mild cardiomegaly. ABDOMEN LIVER: Metallic fragments identified within the right lobe. GALLBLADDER AND BILE DUCTS: Unremarkable noncontrast appearance. PANCREAS: Unremarkable noncontrast appearance. SPLEEN: Curvilinear calcification likely related to remote infarct. ADRENAL GLANDS: Unremarkable noncontrast appearance.. KIDNEYS AND URETERS: No hydronephrosis. No definitive renal calculi. Bilateral renal vasculature calc ifications noted. Bilateral renal cysts with largest in the from the inferior pole the right kidney m easuring up to 2.7 cm. Atrophy of the left kidney with an exophytic left mid kidney cyst measuring up to 2.6 cm. Exophytic right posterior kidney 1.7 cm likely proteinaceous/hemorrhagic cyst. PELVIS BLADDER: Under distended with mass effect along the left pelvic side wall. REPRODUCTIVE: Unremarkable. ABDOMEN & PELVIS STOMACH AND BOWEL: No evidence of bowel obstruction. Enteric contrast reaches the rectum. No focal artemio wel wall thickening or surrounding inflammatory changes. PERITONEUM: No evidence of pneumoperitoneum. Lobulated heterogenous lesion within the anterior left l ower pelvis measuring 8.8 x 11.3 cm. Small amount of complex free fluid within the pelvis. VASCULATURE: Postsurgical changes from aortobiiliac stent graft. Slightly decreased excluded aneurysm sac in the distal aorta measuring 6.5 x 7.3 cm, previously 7.6 x 8.8 cm. Increased size of infrarena l abdominal aortic aneurysm at the proximal aspect of the stent measuring up to 5.4 cm, previously me asured up to 4.2 cm. . Bifemoral bypass identified. MUSCULOSKELETAL: No acute osseous abnormalities. Remote left-sided 10th rib fracture. S-shaped scolio tic curvature of the spine. Moderate multilevel degenerative disc disease of the spine. LYMPH NODES: No gross evidence for lymphadenopathy. SOFT TISSUE/ABDOMINAL WALL: Post surgical changes anterior abdominal wall with sutures identified. Leslie rgical clips within the right inguinal region. IMPRESSION: Evaluation is limited due to lack of intravenous contrast. 1. Lobulated heterogenous lesion within the anterior left pelvis measuring up to 11.3 cm concerning for likely hematoma with underlying hemorrhagic mass not excluded. There is surrounding mass effect u daniel the urinary bladder. Trace amount of free hemorrhagic fluid within the pelvis. Continued follow-u p is recommended. 2. Postsurgical changes from aortobiiliac stent graft with slightly decreased distal aortic aneurysm sac measuring up to 7.3 cm. This has increased size of proximal abdominal aortic aneurysm at the prox imal aspect of the stent measuring up to 5.4 cm.
--- NOTE | 2023-03-27 14:32 | P.PN ---
Subjective Progress Note Date: 03/27/23 Principal diagnosis: Leukocytosis Patient is a 77-year-old male with a past medical history significant for hyperlipidemia reflux DVT atrial fibrillation presenting to the hospital for evaluation of generalized weakness and falls, patient noticed to have elevated white count probably this infectious disease consultation was some abnormality on abdominal ultrasound On physical evaluation head that is 03/27/2023, the patient continues to be afebrile the patient is breathing comfortably on room air, the patient denies chest pain, shortness of breath or cough, patient denies abdominal pain, no nausea/vomiting and no diarrhea Patient white count normalized to 8.9, creatinine is 1.35 Objective - Vital Signs Vital signs: Vital Signs Temp 97.4 F L 03/27/23 11:51 Pulse 72 03/27/23 11:51 Resp 18 03/27/23 11:51 BP 110/63 03/27/23 11:51 Pulse Ox 97 03/27/23 11:51 FiO2 21 03/27/23 11:10 Intake & Output 03/26/23 03/27/23 03/27/23 18:59 06:59 18:59 Intake Total 242.916 110 Output Total 300 450 200 Balance -57.084 -450 -90 Weight 65.5 kg 66.5 kg Intake: Intake, IV Titration 22.916 Amount Diltiazem 125 mg In 22.916 Sodium Chloride 0.9% 100 ml @ 5 MG/HR 5 mls/hr IV [facility] Rx[facility][id number] Oral 220 110 Output: Urine 300 450 200 Other: # Bowel Movements 1 3 - Exam GENERAL DESCRIPTION: An elderly male lying in bed in no distress RESPIRATORY SYSTEM: Unlabored breathing , decreased breath sounds at bases HEART: S1 S2 regular rate and rhythm , ABDOMEN: Soft , no tenderness EXTREMITIES: No edema feet - Labs CBC & Chem 7: 03/27/23 06:27 03/27/23 06:27 Labs: Abnormal Lab Results - Last 24 Hours (Table) 03/26/23 03/26/23 03/27/23 Range/Units 08:51 16:03 06:27 RBC (4.30-5.90) m/uL Hgb (13.0-17.5) gm/dL Hct (39.0-53.0) % PT 27.4 H (10.0-12.5) sec INR 2.8 H (<1.2) Sodium (137-145) mmol/L BUN (9-20) mg/dL Creatinine (0.66-1.25) mg/dL POC Glucose (mg/dL) 156 H (70-110) mg/dL Calcium (8.4-10.2) mg/dL Magnesium (1.6-2.3) mg/dL C-Reactive Protein (<1.0) mg/dL Procalcitonin 0.10 H (0.02-0.09) ng/mL 03/27/23 03/27/23 03/27/23 Range/Units 06:27 06:27 11:09 RBC 3.00 L (4.30-5.90) m/uL Hgb 9.4 L D (13.0-17.5) gm/dL Hct 27.5 L (39.0-53.0) % PT (10.0-12.5) sec INR (<1.2) Sodium 131 L (137-145) mmol/L BUN 47 H (9-20) mg/dL Creatinine 1.35 H (0.66-1.25) mg/dL POC Glucose (mg/dL) 124 H (70-110) mg/dL Calcium 7.9 L (8.4-10.2) mg/dL Magnesium 2.4 H (1.6-2.3) mg/dL C-Reactive Protein 4.8 H (<1.0) mg/dL Procalcitonin (0.02-0.09) ng/mL Assessment and Plan (1) Leukocytosis Current Visit: Yes Status: Acute Code(s): D72.829 - ELEVATED WHITE BLOOD CELL COUNT, UNSPECIFIED SNOMED Code(s): 495107351 Plan: 1patient with a leukocytosis in this patient presented to hospital with weakness and multiple falls patient did have some bruising to the left lower abdominal area and also noticed to be slight tenderness concerning for possible intra-abdominal source. 2we're currently waiting for CT of the abdominal pelvis with oral contrast to be finalize 3Blood cultures currently pending CRP is mildly elevated 4-Patient to continue with Zosyn while waiting for cultures to be finalize Dictation was produced using [employer] software. please excuse any grammatical, word or spelling errors. Time with Patient: Less than 30
[2023-03-27 16:22] LABS: Glucose,Whole Blood 103 mg/dL (70-110)
[2023-03-27] MEDS: CHOLESTYRAMINE (WITH SUGAR) 4 GM PACKET PO SCH ×2 (17:48→19:07)
[2023-03-27] MEDS ORDERED: WARFARIN 2.5 MG TAB PO ONE (18:00)
[2023-03-27 19:50] LABS: Glucose,Whole Blood 125 mg/dL (70-110)
[2023-03-27] MEDS: BUDESONIDE 0.5 MG/2 ML NEBU INHALATION SCH (21:55)
[2023-03-28] MEDS: PIPERACILLIN-TAZOBACTAM 3.375 GM in SODIUM CHLORIDE 0.9% 100 ML IVPB SCH ×4 (01:19→23:09)
[2023-03-28 05:46] LABS: Glucose,Whole Blood 97 mg/dL (70-110)
[2023-03-28] MEDS: INSULIN ASPART (NovoLOG) 100 UNIT/ML VIAL SQ SCH ×4 (07:33→20:45)
[2023-03-28 08:56] LABS: Basophils % (A) 0 %; Eosinophils # (A) 0.2 k/uL (0-0.7); Eosinophils % (A) 2 %; HCT 26.5 % (39.0-53.0); HGB 8.9 gm/dL (13.0-17.5); Lymphocytes # (A) 1.2 k/uL (1.0-4.8); Lymphocytes % (A) 14 %; MCH 31.5 pg (25.0-35.0); MCHC 33.7 g/dL (31.0-37.0); MCV 93.5 fL (80.0-100.0); Mean Platelet Volume 9.2; Monocytes # (A) 0.7 k/uL (0-1.0); Monocytes % (A) 8 %; Neutrophils # (A) 6.6 k/uL (1.3-7.7); Neutrophils % (A) 75 %; Platelet Count 170 k/uL (150-450); RBC 2.83 m/uL (4.30-5.90); RDW 14.1 % (11.5-15.5); WBC 8.8 k/uL (3.8-10.6)
[2023-03-28] MEDS: CHOLESTYRAMINE (WITH SUGAR) 4 GM PACKET PO SCH ×3 (09:01→16:57)
[2023-03-28] MEDS: ATORVASTATIN 40 MG TAB PO SCH (09:01)
[2023-03-28] MEDS: METOPROLOL TARTRATE 50 MG TAB PO SCH ×2 (09:01→20:45)
[2023-03-28] MEDS: DIGOXIN 125 MCG TAB PO SCH (09:01)
[2023-03-28 09:10] LABS: African American GFR (CKD) 64 (>60 ml/min/1.73 sqM); Anion Gap 6 mmol/L; Blood Urea Nitrogen 37 mg/dL (9-20); Carbon Dioxide 25 mmol/L (22-30); Chloride 103 mmol/L (98-107); Glucose 82 mg/dL (74-99); Magnesium 2.2 mg/dL (1.6-2.3); Non-African American GFR(CKD) 55 (>60 ml/min/1.73 sqM); Potassium 3.9 mmol/L (3.5-5.1); Sodium 134 mmol/L (137-145)
[2023-03-28] MEDS: BUDESONIDE 0.5 MG/2 ML NEBU INHALATION SCH ×2 (09:21→20:49)
[2023-03-28] MEDS: IPRATROPIUM-ALBUTEROL 3 ML NEB INHALATION SCH ×4 (09:21→20:49)
[2023-03-28 09:34] LABS: INR 1.6 (<1.2); Prothrombin Time 16.5 sec (10.0-12.5)
[2023-03-28] MEDS ORDERED: PHYTONADIONE ORAL 5 MG/5 ML ORAL.SYRG PO STA (10:02)
--- NOTE | 2023-03-28 11:02 | P.PN ---
Subjective Patient is seen in follow-up for acute kidney injury. Renal function improved. Hemodynamically stable. Admits to good urine output. No vomiting or diarrhea. Vital signs are stable. General: No acute distress. HEENT: Head exam is unremarkable. LUNGS: No audible rhonchi or wheezes. HEART: Rate and Rhythm are regular. ABDOMEN: nNontender. EXTREMITITES: Right BKA. Objective - Vital Signs Vital signs: Vital Signs Temp 97.5 F L 03/28/23 08:00 Pulse 84 03/28/23 09:36 Resp 15 03/28/23 08:00 BP 117/71 03/28/23 08:00 Pulse Ox 97 03/28/23 09:21 FiO2 21 03/27/23 11:10 Intake & Output 03/27/23 03/28/23 03/28/23 18:59 06:59 18:59 Intake Total 220 Output Total 200 400 Balance 20 -400 Weight 66.5 kg Intake: Oral 220 Output: Urine 200 400 Other: # Bowel Movements 1 - Labs CBC & Chem 7: 03/28/23 07:39 03/28/23 07:39 Labs: Abnormal Lab Results - Last 24 Hours (Table) 03/27/23 03/27/23 03/28/23 Range/Units 11:09 19:48 07:39 RBC (4.30-5.90) m/uL Hgb (13.0-17.5) gm/dL Hct (39.0-53.0) % PT 16.5 H (10.0-12.5) sec INR 1.6 H (<1.2) Sodium (137-145) mmol/L BUN (9-20) mg/dL Creatinine (0.66-1.25) mg/dL POC Glucose (mg/dL) 124 H 125 H (70-110) mg/dL Calcium (8.4-10.2) mg/dL 03/28/23 03/28/23 Range/Units 07:39 07:39 RBC 2.83 L (4.30-5.90) m/uL Hgb 8.9 L (13.0-17.5) gm/dL Hct 26.5 L (39.0-53.0) % PT (10.0-12.5) sec INR (<1.2) Sodium 134 L (137-145) mmol/L BUN 37 H (9-20) mg/dL Creatinine 1.27 H (0.66-1.25) mg/dL POC Glucose (mg/dL) (70-110) mg/dL Calcium 8.0 L (8.4-10.2) mg/dL Assessment and Plan Plan: Assessment: 1. Acute kidney injury secondary to vasomotor nephropathy secondary to hemodynamic instability. Creatinine 2.59 on admission and is 1.27 today. Baseline creatinine near 1 from November 2022. UA fairly benign. No hydronephrosis noted on kidney ultrasound. Left kidney atrophic. 2. Hypovolemic hyponatremia initially improved with IV fluids. Sodium level 134 today. 3. A. fib with RVR s/p Cardizem drip. On digoxin and metoprolol. Cardiology following. 4. Status post right BKA. 5. Left pelvic mass versus hematoma. Mass effect upon the urinary bladder. Vascular surgery consulted. 6. Acute blood loss anemia with concern for hematoma. Plan: Encourage oral intake. Continue to hold lisinopril as blood pressure in the lower side. Avoid nephrotoxins. Continue to monitor renal function and urine output. Preserved ejection fraction and echocardiogram. Check iron studies.
[2023-03-28 11:39] LABS: Glucose,Whole Blood 97 mg/dL (70-110)
--- NOTE | 2023-03-28 12:35 | P.PN ---
Subjective HISTORY OF PRESENT ILLNESS: This is a 77-year-old male with a past medical history significant for right AKA, atrial fibrillation, hypertension, hyperlipidemia, and questionable CAD with multiple stenting per patient. 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 We have been asked to see the patient in consultation for A. fib with RVR. Patient examined at the bedside. Patient initially presented to the hospital after sustaining a fall. He states that he fell at home on his concrete and laid there for 5-6 hours before he was able to get a neighbor to help him. The patient currently denies any chest pain or pressure. He reports having some mild shortness of breath at home recently but at the time of examination he denies any shortness of breath. He denies any dizziness or lightheadedness. He denies any palpitations. The patient was found to be in A. fib with RVR. He was started on IV Cardizem. This morning he remains in nature fibrillation with a heart rate around 100. His Cardizem drip is infusing at 10 mg an hour. Patient was also found to have acute kidney injury with a creatinine of 2.59 on admission and supratherapeutic INR with INR of 3.5. * EKG reveals atrial fibrillation with RVR * Chest xray negative for acute process * Laboratory data: WBC 20.1. Hemoglobin 14.1. Platelet count 151. INR 3.5. Sodium 132. Potassium 4.3. BUN 64. Creatinine 2.59. Troponin negative 3. * Current home cardiac medications include digoxin 125 g daily, Lipitor 10 mg daily, metoprolol tartrate 50 mg daily, lisinopril 10 mg daily, and warfarin 5 mg daily * Most recent echocardiogram obtained in 2017 revealed ejection fraction 55-60%, trace MR, trace TR * Cardiac catheterization history: Unknown 03/27/2023 Patient examined this morning at the bedside. Patient currently denies any chest pain or pressure. He denies any shortness of breath. Telemetry reveals atrial fibrillation with a heart rate in the 70s. Echocardiogram completed revealing ejection fraction 50-55%, hypokinetic mid basilar inferior wall, mild pulmonary hypertension, trace mitral regurgitation, mild tricuspid regurgitation. 03/28/2023 Patient examined this morning at the bedside. Patient denies chest pain or pressure. He denies shortness of breath. Patient underwent CT abdomen and pelvis yesterday revealing 11.3 cm anterior left pelvic hematoma with underlying hemorrhagic mass not excluded. Surrounding mass effect upon urinary bladder. Postsurgical changes from aortobiiliac stent graft with slightly decreased distal aortic aneurysm sac measuring up to 7.3 cm. PHYSICAL EXAM: VITAL SIGNS: Reviewed. GENERAL: Well-developed in no acute distress. HEENT: Head is normocephalic. Pupils are equal, round. Sclerae anicteric. Mucous membranes of the mouth are moist. Neck supple. No JVD or thyromegaly LUNGS: Respirations even and unlabored. Lungs essentially clear to auscultation bilaterally. HEART: Regular rate and rhythm. S1 and S2 heard. ABDOMEN: Soft. Nondistended. Nontender. EXTREMITIES: Normal range of motion. No clubbing or cyanosis. Peripheral pulses intact. Right AKA. NEUROLOGIC: Awake and alert. Oriented x 3. ASSESSMENT: Status post mechanical fall Supratherapeutic INR, 3.5 on admission Acute kidney injury Leukocytosis Persistent atrial fibrillation with RVR History of right AKA Hypertension Hyperlipidemia Questionable history of CAD with previous stenting, per patient Nicotine dependence Depression PTSD Peripheral vascular disease with previous aortobiiliac stent graft 11.3 cm anterior left pelvic hematoma PLAN: Continue current cardiac medications Hold Coumadin. Vascular surgery consulted for evaluation Continue telemetry monitoring Monitor kidney function. Hold lisinopril at this time secondary to MARIO. Patient is currently stable from a cardiac perspective with no further inpatient cardiac recommendations We will sign off. Please reconsult if needed. Nurse practitioner note has been reviewed by physician. Signing provider agrees with the documented findings, assessment, and plan of care. Objective - Vital Signs Vital signs: Vital Signs Temp 98.1 F 03/28/23 11:49 Pulse 85 03/28/23 12:08 Resp 14 03/28/23 11:49 BP 147/76 03/28/23 11:49 Pulse Ox 91 L 03/28/23 11:49 FiO2 21 03/27/23 11:10 Intake & Output 03/27/23 03/28/23 03/28/23 18:59 06:59 18:59 Intake Total 220 Output Total 200 400 Balance 20 -400 Weight 66.5 kg Intake: Oral 220 Output: Urine 200 400 Other: # Bowel Movements 1 - Labs CBC & Chem 7: 03/28/23 07:39 03/28/23 07:39 Labs: Abnormal Lab Results - Last 24 Hours (Table) 03/27/23 03/28/23 03/28/23 Range/Units 19:48 07:39 07:39 RBC 2.83 L (4.30-5.90) m/uL Hgb 8.9 L (13.0-17.5) gm/dL Hct 26.5 L (39.0-53.0) % PT 16.5 H (10.0-12.5) sec INR 1.6 H (<1.2) Sodium (137-145) mmol/L BUN (9-20) mg/dL Creatinine (0.66-1.25) mg/dL POC Glucose (mg/dL) 125 H (70-110) mg/dL Calcium (8.4-10.2) mg/dL 03/28/23 Range/Units 07:39 RBC (4.30-5.90) m/uL Hgb (13.0-17.5) gm/dL Hct (39.0-53.0) % PT (10.0-12.5) sec INR (<1.2) Sodium 134 L (137-145) mmol/L BUN 37 H (9-20) mg/dL Creatinine 1.27 H (0.66-1.25) mg/dL POC Glucose (mg/dL) (70-110) mg/dL Calcium 8.0 L (8.4-10.2) mg/dL
--- NOTE | 2023-03-28 12:46 | CT ---
EXAMINATION TYPE: CT angio abdomen pelvis DATE OF EXAM: 03/28/2023 COMPARISON: CT 03/27/2023 and 01/27/2013 HISTORY: 77-year-old male pelvic hematoma, evaluate for bleed. AAA TECHNIQUE: Contiguous axial scanning of the abdomen and pelvis before and after administration of 100 ml Isovue 370 IV contrast. Delayed images through the stent graft and coronal/sagittal reconstructi ons performed. 3-D reconstructions generated on a dedicated independent workstation. CT DLP: 1303.5 mGycm Automated exposure control for dose reduction was used. FINDINGS: The heart is mildly enlarged without pericardial effusion. Suspect some strandy scarring at the left base. Some underlying mild emphysematous change. No pleural effusion. A couple calcified granulomas right liver lobe. No focal lesion otherwise seen. Portal venous system appears patent. Gallbladder and bile ducts appear normal. Adrenal glands within normal limits. Left kidney atrophic. There are bilateral renal cysts measuring up to 3.0 cm on the right and 2.7 cm on the left. Spleen and pancreas within normal limits. No dilated small bowel or free air. There is mild hemorrhagic ascites in the pelvis. Mild aneurysm upper abdominal aorta at 3.4 cm increased from 2.9 cm, previously. Extension of endovascular aorto biiliac stent graft higher along the infrarenal segment. [place] sac d ilated at 5.5 cm vs 3.1 cm previously back in 2013 prior to extension of stent graft. The [place] sac along the left seems to show some hyperdensity but no change in attenuation on the delayed scan. The dilated [place] sac just inferiorly measures up to 7.6 cm versus 9.4 cm back in 2013. There is jhoana e layering fat nondependently within the [place] sac. The right iliac limb is occluded. LEFT: The stented left iliac artery is dilated at 2.2 cm. There is a mild focal stenosis at the junction of the left external iliac artery and common femoral a rtery. There is a large aneurysm measuring up to 5.6 x 3.5 cm at the OPTICAL MANAGER bifurcation (refer to series 602 im age 80) with patent PFA though one of the medial branches contains intra-arterial thrombus, axial ser ies 501 image 222. The SFA is occluded. RIGHT: Stented right common iliac artery dilated up to 2.2 cm remains occluded. There is reconstitution at the level of the distal OPTICAL MANAGER secondary to a left to right femoral to femora l bypass graft. There is mild stenosis at the distal anastomosis. There is abnormal dilatation measuring 3.1 x 2.0 cm at the expected OPTICAL MANAGER bifurcation that either repre sent saccular aneurysm or pseudoaneurysm. There is moderate focal stenosis at the origin of the PFA with occluded SFA. There is a large extraperitoneal hematoma in the left side of the pelvis measuring up tor 12.3 x 11.2 x 9.4 cm with prominent mass effect onto the bladder and rightward displacement. Additional scattere d mild extraperitoneal bleeding within the pelvis. BONES: There appears to be a subtle nondisplaced segmental fracture left superior pubic ramus and additional nondisplaced fracture left inferior pubic ramus. Moderate to severe degenerative changes left hip an d moderate degenerative change right hip. Degenerative dextro convex scoliosis lumbar spine. IMPRESSION: 1. LARGE 12.3 CM EXTRAPERITONEAL HEMATOMA WITHIN THE LEFT SIDE OF THE PELVIS LIKELY SECONDARY TO SUBT LE NONDISPLACED FRACTURES OF THE LEFT SUPERIOR AND INFERIOR PUBIC RAMI. THERE IS ADDITIONAL SCATTERED MILD EXTRAPERITONEAL HEMORRHAGE AND TRACE HEMORRHAGIC PELVIC FREE FLUID. 2. NO CONVINCING EVIDENCE FOR ARTERIAL EXTRAVASATION THOUGH A COUPLE WORRISOME FINDINGS WHICH REQUIRE VASCULAR SURGERY EVALUATION/FOLLOW-UP ARE PRESENT: 3. PREVIOUS ABDOMINAL AORTOBIILIAC STENT GRAFT. THE ASA'[place] SAC AT THE MID ABDOMINAL AORTA CONTAINS SO ME HYPERDENSITY. SOME ACUTE HEMORRHAGE INTO THE ASA'[place] SAC WALL IS DIFFICULT TO EXCLUDE. NO [place]ON END OLEAK IS SEEN ON DELAYED SCAN. 4. DISTAL ABDOMINAL AORTIC ASA'CARSARMIUT SAC MEASURES 7.6 CM VERSUS 9.4 CM BACK IN 2013 WHEN A LARGE EXTRALU MICHAEL LEAK WAS SEEN. 5. LARGE ANEURYSM AT THE LEFT OPTICAL MANAGER BIFURCATION MEASURING UP TO 5.6 X 3.5 CM. THE PFA IS PATENT THOUGH ONE OF THE MEDIAL BRANCHES CONTAINS INTRA-ARTERIAL THROMBUS. THE SFA IS OCCLUDED. 6. OCCLUDED RIGHT ILIAC LIMB OF THE STENT GRAFT. DISTAL RIGHT OPTICAL MANAGER RECONSTITUTION VIA A FEMORAL TO FEM ORAL BYPASS GRAFT. THERE IS ABNORMAL DILATATION MEASURING 3.1 X 2.0 CM AT THE EXPECTED OPTICAL MANAGER BIFURCATIO N THAT COULD EITHER REPRESENT A SACCULAR ANEURYSM VERSUS PSEUDOANEURYSM. MODERATE FOCAL STENOSIS at t he ORIGIN OF THE PFA AND OCCLUDED right SFA.
--- NOTE | 2023-03-28 13:16 | P.GSCN ---
History of Present Illness Consult date: 03/28/23 Reason for Consult: Left pelvic mass hematoma/hemorrhage, aneurysmal sac Requesting physician: Karen Arellano History of present illness: This is a 77-year-old male who presented to the emergency department 3 days ago after sustaining a fall. Patient was concerned could see had bruising in the pelvic region and abdominal pain, head pain and hip pain. He has a past medical history including peripheral arterial disease status post reported fem-fem bypass, abdominal aortic aneurysm rupture status post repair, coronary artery disease status post stenting, atrial fibrillation on warfarin, hyperlipidemia, posttraumatic stress disorder and chronic tobacco abuse. Patient has history of right [id number]-[id number] amputation as well. Patient is rather poor historian on timing believes that he had AAA rupture greater than 10 years ago unclear on his fem-fem bypass or right AKA he states a couple years ago. He has not followed with his vascular surgeon from [facility] since he reports possibly 2008. Not currently following with [facility] [employer] as well. Patient underwent CT of the abdomen without contrast yesterday afternoon with concerning for anterior left pelvis lesion up to 11.3 cm concerning for hematoma with underlying hemorrhagic mass not excluded. Patient also had reported postsurgical changes from aortobiiliac stent graft with aortic aneurysm sac measuring up to 7.3 cm. Vascular surgery was consulted for the above. Patient's initial hemoglobin on admission was 14 with a drop today to 8.9. He had supratherapeutic INR on admission of 3.5 with a repeat today of 1.6. He currently denies any abdominal pain, chest pain, shortness of breath, nausea or vomiting. He has been tolerating regular diet. He is hemodynamically stable. Review of Systems A 14 point review systems was completed all pertinent positives and negatives as stated in the HPI. Past Medical History Past Medical History: Atrial Fibrillation, Deep Vein Thrombosis (DVT), GERD/Reflux, Hearing Disorder / Deafness, Hyperlipidemia, Osteoarthritis (OA), Pneumonia, Prostate Disorder, Sleep Apnea/CPAP/BIPAP Additional Past Medical History / Comment(s): DVT Last Myocardial Infarction Date:: UNKNOWN History of Any Multi-Drug Resistant Organisms: None Reported Past Surgical History: Heart Catheterization With Stent Additional Past Surgical History / Comment(s): femerol bypass right and left, removed steel from right lung and retired up diaphram, right above knee amputee Past Anesthesia/Blood Transfusion Reactions: No Reported Reaction Date of Last Stent Placement:: unknown Past Psychological History: Depression, PTSD Smoking Status: Current some day smoker Past Alcohol Use History: Occasional Past Drug Use History: None Reported - Past Family History Mother Family Medical History: Myocardial Infarction ([place]) Father Family Medical History: Dementia Medications and Allergies Home Medications Medication Instructions Recorded Confirmed Type Atorvastatin [Lipitor] 10 mg PO DAILY 07/09/16 03/25/23 History Digoxin [Digitek] 125 mcg PO DAILY 07/09/16 03/25/23 History Warfarin [Coumadin] 5 mg PO DAILY 01/05/19 03/25/23 History Metoprolol Tartrate [Lopressor] 50 mg PO DAILY 03/25/23 03/25/23 History lisinopriL [Zestril] 10 mg PO DAILY 03/25/23 03/25/23 History Allergies Allergy/AdvReac Type Severity Reaction Status Date / Time No Known Allergies Allergy Verified 03/25/23 18:20 Surgical - Exam Vital Signs Temp Pulse Resp BP Pulse Ox 98 F 52 L 20 118/74 96 03/25/23 14:08 03/25/23 14:08 03/25/23 14:08 03/25/23 14:08 03/25/23 14:08 General appearance: The patient is alert, oriented, appears in no acute distress. HET: Head is normocephalic and atraumatic. Pupils are equal and reactive. Neck: Supple. Heart: Regular. Lungs: Equal expansion, normal respiratory effort. Abdomen: Soft, nontender, nondistended. Pelvis with significant ecchymosis down into the scrotum. Left flank ecchymosis. No carotid bruit. Extremities: Bilateral palpable femoral pulses. Right upens-[id number]-[id number] amputation stump well healed. Left lower extremity warm to the touch with sensorimotor intact. Nonpalpable popliteal PT and DP pulses. Neurological: No focal deficits. Strength and sensation are grossly intact. Results - Labs 03/28/23 07:39 03/28/23 07:39 Abnormal Lab Results - Last 24 Hours (Table) 03/27/23 03/27/23 03/27/23 Range/Units 06:27 11:09 19:48 RBC (4.30-5.90) m/uL Hgb (13.0-17.5) gm/dL Hct (39.0-53.0) % PT (10.0-12.5) sec INR (<1.2) Sodium 131 L (137-145) mmol/L BUN 47 H (9-20) mg/dL Creatinine 1.35 H (0.66-1.25) mg/dL POC Glucose (mg/dL) 124 H 125 H (70-110) mg/dL Calcium 7.9 L (8.4-10.2) mg/dL Magnesium 2.4 H (1.6-2.3) mg/dL C-Reactive Protein 4.8 H (<1.0) mg/dL 03/28/23 03/28/23 03/28/23 Range/Units 07:39 07:39 07:39 RBC 2.83 L (4.30-5.90) m/uL Hgb 8.9 L (13.0-17.5) gm/dL Hct 26.5 L (39.0-53.0) % PT 16.5 H (10.0-12.5) sec INR 1.6 H (<1.2) Sodium 134 L (137-145) mmol/L BUN 37 H (9-20) mg/dL Creatinine 1.27 H (0.66-1.25) mg/dL POC Glucose (mg/dL) (70-110) mg/dL Calcium 8.0 L (8.4-10.2) mg/dL Magnesium (1.6-2.3) mg/dL C-Reactive Protein (<1.0) mg/dL Diabetes panel 03/27/23 03/28/23 Range/Units 06:27 07:39 Sodium 131 L 134 L (137-145) mmol/L Potassium 3.9 3.9 (3.5-5.1) mmol/L Chloride 103 103 (98-107) mmol/L Carbon Dioxide 24 25 (22-30) mmol/L BUN 47 H 37 H (9-20) mg/dL Creatinine 1.35 H 1.27 H (0.66-1.25) mg/dL Glucose 85 82 (74-99) mg/dL Calcium 7.9 L 8.0 L (8.4-10.2) mg/dL Calcium panel 03/27/23 03/28/23 Range/Units 06:27 07:39 Calcium 7.9 L 8.0 L (8.4-10.2) mg/dL Pituitary panel 03/27/23 03/28/23 Range/Units 06:27 07:39 Sodium 131 L 134 L (137-145) mmol/L Potassium 3.9 3.9 (3.5-5.1) mmol/L Chloride 103 103 (98-107) mmol/L Carbon Dioxide 24 25 (22-30) mmol/L BUN 47 H 37 H (9-20) mg/dL Creatinine 1.35 H 1.27 H (0.66-1.25) mg/dL Glucose 85 82 (74-99) mg/dL Calcium 7.9 L 8.0 L (8.4-10.2) mg/dL Adrenal panel 03/27/23 03/28/23 Range/Units 06:27 07:39 Sodium 131 L 134 L (137-145) mmol/L Potassium 3.9 3.9 (3.5-5.1) mmol/L Chloride 103 103 (98-107) mmol/L Carbon Dioxide 24 25 (22-30) mmol/L BUN 47 H 37 H (9-20) mg/dL Creatinine 1.35 H 1.27 H (0.66-1.25) mg/dL Glucose 85 82 (74-99) mg/dL Calcium 7.9 L 8.0 L (8.4-10.2) mg/dL - Imaging Comments: CT abdomen and pelvis without contrast: Lobulated heterogeneous lesion within the anterior left pelvis measuring up to 11.3 cm concerning for likely hematoma with underlying hemorrhagic mass Exclude it. There is surrounding mass effect upon the urinary bladder. Trace amount of free hemorrhagic fluid within the pelvis. Continued follow-up is recommended. Postsurgical changes from aortobiiliac stent graft with slightly decreased distal aortic aneurysm sac measuring up to 7.3 cm. This has increased size of proximal abdominal aortic aneurysm at the proximal aspect of the stent measuring up to 5.[address] angiogram abdomen and pelvis reports large 12.3 cm extraperitoneal hematoma within left side of pelvis likely secondary to subtle nondisplaced fractures of the left superior and inferior pubic [place]. Additional scattered mild extraperitoneal hemorrhage and trace hemorrhagic pelvic free fluid. No convincing evidence for arterial extravasation though a couple worrisome findings which require vascular surgery evaluate/follow up are present. Previous abdominal aortobiiliac stent graft. [place] sac at the mid abdominal aorta contains some hyperdensity. Some acute hemorrhage into the [place] sac wall is difficult to exclude. No jarvis endoleak seen on delayed scan. Distal abdominal aortic [place] sac measures 7.6 cm versus 9.4 cm back in 2013 when a large extraluminal leak was seen. Large aneurysm at the left BENCH PRESS OPERATOR bifurcation measuring up to 5.6 x 3.5 cm the PFA is patent though one of the medial branches contains intra-arterial thrombus. SFA occluded. Occluded right iliac limb of the stent graft. Distal right BENCH PRESS OPERATOR reconstitution via femoral to femoral bypass graft. There is abnormal dilation measuring 3.1 x 2.0 cm at the expected BENCH PRESS OPERATOR bifurcation that could either represent a saccular aneurysm versus pseudoaneurysm. Moderate focal stenosis at the origin of PFA and occluded right SFA. CT scan - abdomen: report reviewed, image reviewed Assessment and Plan Assessment: 1. Pelvic hematoma 2. Abdominal aortic aneurysm status post repair 3. History of peripheral arterial disease status post previous bypass and stenting 4. History of Right wwqbe-fij-vjll amputation 5. Atrial fibrillation with RVR 6. Tobacco abuse 7. Posttraumatic stress disorder Plan: 1. Give 2.5 mg vitamin K oral 2. Stat type and screen 3. Stat CT a abdomen and pelvis ordered and imaging reviewed by Dr. Reveles with no signs of active bleed and no endoleak 4. Diet as tolerated 5. There is no indication for any vascular surgical intervention at this time. Recommend patient follow-up with his vascular surgeon from [facility] following discharge. 6. Rest of medical management per primary medical team Thank you for this consultation. The impression and plan of care has been dictated as directed. I performed a history and examination of this patient, discussed the same with the dictator. I agree with the dictator's note ,documented as a scribe. Any additional findings or plans will be noted.
--- NOTE | 2023-03-28 15:07 | P.PN ---
Subjective Progress Note Date: 03/28/23 77-year-old male who presented with atrial fibrillation does have known history of atrial fibrillation. Patient sustained fall and was complaining of generalized weakness patient has right bony amputation. He was also found to have elevated creatinine of 2.559, baseline being normal on losartan doesn't h ave any history of congestive heart failure. Blood pressure is low and losartan is being held and patient was bit hypotensive patient was on his continued in metoprolol dose was increased. Patient does have leukocytosis chest x-ray showed atelectasis without any evidence of pneumonia patient denied any UTI symptoms. Patient is also hyponatremic. Pro-calcitonin level is being ordered. Patient is presently on oxygen doesn't usually use oxygen saturating at 93% on 2 L of oxygen 03/27/2023 Patient will need to placement at rehabitation. Patient had an abdominal ultrasound which showed a collection behind the bladder because of his CT of the abdomen is being obtain his leukocytosis improved his heart rate is well controlled. Creatinine improved but his kidney function is not available from today. 03/28/2023 Patient is evaluated today resting in bed. His family is at the bedside. He has extensive bruising pelvic region, suprapubic and the penis and scrotum as well. Patient had an abdominal pelvis CT done showing a lobulated heterogenous lesion within the anterior left pelvis measuring up to 11.3cm concerning for likely hematoma with underlying hemorrhage mass not excluded. There is surrounding mass effect upon the urinary bladder. Trace amount of free hemorrhagic fluid within the pelvis. Follow-up is recommending. Postsurgical changes from aortobilliac stent graft with slightly decreased distal aortic aneurysm sac measuring up to 7.3 cm. This has increased size of proximal abdominal aortic aneurysm at the proximal aspect of the stent measuring up to 5.4 cm. Vascular consult was requested and a abdominal pelvis CT angiography was requested which does reveal a large 4.3 cm extraperitoneal hematoma on the left side of the pelvis likely secondary to subtle nondisplaced fracture of the left superior and inferior pubic rami. There is additional scattered mild extraperitoneal hemorrhage and trace hemorrhagic pelvic free fluid. His previous abdominal aortobiliac stent graft there is some acute hemorrhage into the jackson sac which is difficult to exclude. No flank endoleak is seen on delayed scan. The distal abdominal aortic jackson sac measures 7.6 cm versus 9.47 back in 2013. Large aneurysm at the left LOGGING SUPERINTENDENT bifurcation there is no intra-arterial thrombus in one of the medial branches of the PSA. The SFA is occluded. Occluded right iliac limb of the stent graft. There is abnormal dilation at the LOGGING SUPERINTENDENT bifurcation this could either represent a saccular aneurysm versus pseudoaneurysm. There are additional findings were reported. INR was found to be 1.6 today and vitamin K was given. Creatinine today 1.27. Hemoglobin fairly stable at 8.9. Further recommendations from vascular forthcoming. Patient is a poor historian. Review of Systems. Constitutional: Denied any fatigue denied any fever. Cardio vascular: denied any chest pain, palpitations Gastrointestinal denied any nausea vomiting Pulmonary: Denied any shortness of breath cough Neurologic denied any new focal deficits All inpatient medications were reviewed and appropriate changes in these medications as dictated in the interval history and assessment and plan. PHYSICAL EXAMINATION: GENERAL: The patient is alert and oriented x3, not in any acute distress. Well developed, well nourished. HEENT: Pupils are round and equally reacting to light. EOMI. No scleral icterus. No conjunctival pallor. Normocephalic, atraumatic. No pharyngeal erythema. No thyromegaly. CARDIOVASCULAR: S1 and S2 present. No murmurs, rubs, or gallops. PULMONARY: Expiratory wheezing on exam ABDOMEN: Soft, nontender, nondistended, normoactive bowel sounds. No palpable organomegaly. MUSCULOSKELETAL: No joint swelling or deformity. EXTREMITIES: No cyanosis, clubbing, or pedal edema. NEUROLOGICAL: Gross neurological examination did not reveal any focal deficits. SKIN: Extensive bruising suprapbuic/ pelvic region to perineum penis and scrotum. +2 femoral pulses. Assessment and plan -Mechanical fall secondary to amputation status and generalized weakness, PT/OT consulation in place -Atrial fibrillation with rapid ventricular rate requiring cardizem gtt. secondary to dehydration intravascularly depletion, hypotension. -Leukocytosis without any evidence of infection except for atelectasis leuko cytosis may be reactive -Fall with trauma subtle nondisplaced pubic rami fracture with evidence of h ematoma/hemorrhage in the left pelvic region. -Abdominal aortic aneurysm with prior repair. -Pelvic hematoma and acute blood loss anemia vascular consultation patient has no active bleeding and no endoleak. -Peripheral artery disease with prior bypass/stenting -COPD with acute exacerbation: Patient was started on Pulmicort and inhalational treatments -Acute renal failure secondary to losartan, patient was started on IV fluids patient has been azotemia. Kidney function improved as of yesterday creatinine is not available from today -Hypervolemic hyponatremia expected to improve with IV fluids -Hypertension patient is presently hypotensive hold off on losartan -Coronary artery disease stents in the past -Depression -History of PTSD -History of DVT in the past -Sleep apnea -Status post right AKA DVT prophylaxis: On anticoagulation Coumadin which is currently held; vitamin K given today. Full Code Plan Continue to monitor bruising. Orthopedic has been consulted due to the subtle non-displacd pubic rami fracture. Patient will likely require subacute rehab on discharge. Follow up labs PT/INR in the AM. Multiple consultations following. The impression and plan of care has been dictated by Karen Arellano, Nurse Practitioner as directed. Dr. Emily MD I have performed a history and physical examination and medical decision making of this patient, discussed the same with the dictator, and agree with the dictators assessment and plan as written, documented as a scribe. Based on total visit time, I have performed more than 50% of this visit. Objective - Vital Signs Vital signs: Vital Signs Temp 98.1 F 03/28/23 11:49 Pulse 85 03/28/23 12:08 Resp 14 03/28/23 11:49 BP 147/76 03/28/23 11:49 Pulse Ox 91 L 03/28/23 11:49 FiO2 21 03/27/23 11:10 Intake & Output 03/27/23 03/28/23 03/28/23 18:59 06:59 18:59 Intake Total 220 Output Total 200 400 Balance 20 -400 Weight 66.5 kg Intake: Oral 220 Output: Urine 200 400 Other: # Bowel Movements 1 - Labs CBC & Chem 7: 03/28/23 07:39 03/28/23 07:39 Labs: Abnormal Lab Results - Last 24 Hours (Table) 03/27/23 03/28/23 03/28/23 Range/Units 19:48 07:39 07:39 RBC 2.83 L (4.30-5.90) m/uL Hgb 8.9 L (13.0-17.5) gm/dL Hct 26.5 L (39.0-53.0) % PT 16.5 H (10.0-12.5) sec INR 1.6 H (<1.2) Sodium (137-145) mmol/L BUN (9-20) mg/dL Creatinine (0.66-1.25) mg/dL POC Glucose (mg/dL) 125 H (70-110) mg/dL Calcium (8.4-10.2) mg/dL 03/28/23 Range/Units 07:39 RBC (4.30-5.90) m/uL Hgb (13.0-17.5) gm/dL Hct (39.0-53.0) % PT (10.0-12.5) sec INR (<1.2) Sodium 134 L (137-145) mmol/L BUN 37 H (9-20) mg/dL Creatinine 1.27 H (0.66-1.25) mg/dL POC Glucose (mg/dL) (70-110) mg/dL Calcium 8.0 L (8.4-10.2) mg/dL Assessment and Plan Time with Patient: Greater than 30
[2023-03-28 16:29] LABS: Glucose,Whole Blood 192 mg/dL (70-110)
[2023-03-28] MEDS: FAMOTIDINE 20 MG TAB PO SCH (16:48)
[2023-03-28 17:48] LABS: % Iron Saturation 18.67 (15.00-50.00)
--- NOTE | 2023-03-28 19:25 | P.CNOR ---
History of Present Illness - HPI Consult date: 03/28/23 History of present illness: This patient is a 77-year-old male with multiple medical comorbidities that presented to [facility] emergency department on 03/25/23 after a mechanical fall. The patient was found to be in A. fib with RVR and acute kidney injury upon arrival to the emergency department, therefore he was admitted under the care of internal medicine with multiple consults placed. After admission, the patient was found to have a larger bruising along the thigh and into the pelvic region. CT was obtained and revealed several nondisplaced fractures of the left superior and inferior pubic rami, as well as a large he matoma. Vascular surgery is consulted regrading the hematoma. Orthopedics is consulted for further evaluation of his fracture. Patient examined bedside this evening with Dr. Arnold. Patient states he is experiencing mild pain in the left pelvic region. He states he does not ambulate much due to his right AKA status. He states he does use crutches sometimes, although he mostly uses a wheelchair. He has no additional complaints at this time. Vital signs stable. Past Medical History Past Medical History: Atrial Fibrillation, Deep Vein Thrombosis (DVT), GERD/Reflux, Hearing Disorder / Deafness, Hyperlipidemia, Osteoarthritis (OA), Pneumonia, Prostate Disorder, Sleep Apnea/CPAP/BIPAP Additional Past Medical History / Comment(s): DVT Last Myocardial Infarction Date:: UNKNOWN History of Any Multi-Drug Resistant Organisms: None Reported Past Surgical History: Heart Catheterization With Stent Additional Past Surgical History / Comment(s): femerol bypass right and left, removed steel from right lung and retired up diaphram, right above knee amputee Past Anesthesia/Blood Transfusion Reactions: No Reported Reaction Date of Last Stent Placement:: unknown Past Psychological History: Depression, PTSD Smoking Status: Current some day smoker Past Alcohol Use History: Occasional Past Drug Use History: None Reported - Past Family History Mother Family Medical History: Myocardial Infarction (MA) Father Family Medical History: Dementia Medications and Allergies Home Medications Medication Instructions Recorded Confirmed Type Atorvastatin [Lipitor] 10 mg PO DAILY 07/09/16 03/25/23 History Digoxin [Digitek] 125 mcg PO DAILY 07/09/16 03/25/23 History Warfarin [Coumadin] 5 mg PO DAILY 01/05/19 03/25/23 History Metoprolol Tartrate [Lopressor] 50 mg PO DAILY 03/25/23 03/25/23 History lisinopriL [Zestril] 10 mg PO DAILY 03/25/23 03/25/23 History Allergies Allergy/AdvReac Type Severity Reaction Status Date / Time No Known Allergies Allergy Verified 03/25/23 18:20 Physical Examination On examination, the patient is sitting up in bed in no apparent distress. He is alert and orientated 3, he appears mildly confused. His head appears normocephalic and atraumatic. His breathing appears nonlabored. On inspection of the bilateral upper extremities, there are no obvious deformities or signs of trauma. On examination of the left lower extremity, there is ecchymosis at the proximal thigh. There are no open wounds. There is mild pain with passive range of motion of the left hip. There is no pain with palpation of the left knee, lower leg, ankle, foot. Motor and sensory function is grossly intact of the left lower extremity. Left lower extremity warm and well-perfused. There has been an AKA of the right lower extremity. Results Pelvis CT 03/27/23 reviewed and reveals nondisplaced fractures at the superior and inferior pubic rami. - Labs Labs: Abnormal Lab Results - Last 24 Hours (Table) 03/27/23 03/28/23 03/28/23 Range/Units 19:48 07:39 07:39 RBC 2.83 L (4.30-5.90) m/uL Hgb 8.9 L (13.0-17.5) gm/dL Hct 26.5 L (39.0-53.0) % PT 16.5 H (10.0-12.5) sec INR 1.6 H (<1.2) Sodium (137-145) mmol/L BUN (9-20) mg/dL Creatinine (0.66-1.25) mg/dL POC Glucose (mg/dL) 125 H (70-110) mg/dL Calcium (8.4-10.2) mg/dL Iron (65-175) UG/DL Transferrin (204.0-354.0) mg/dL Ferritin (22.0-322.0) ng/mL 03/28/23 03/28/23 03/28/23 Range/Units 07:39 07:39 16:27 RBC (4.30-5.90) m/uL Hgb (13.0-17.5) gm/dL Hct (39.0-53.0) % PT (10.0-12.5) sec INR (<1.2) Sodium 134 L (137-145) mmol/L BUN 37 H (9-20) mg/dL Creatinine 1.27 H (0.66-1.25) mg/dL POC Glucose (mg/dL) 192 H (70-110) mg/dL Calcium 8.0 L (8.4-10.2) mg/dL Iron 45 L (65-175) UG/DL Transferrin 172.0 L (204.0-354.0) mg/dL Ferritin 366.0 H (22.0-322.0) ng/mL Microbiology - Last 24 Hours (Table) 03/27/23 06:27 Blood Culture - Preliminary Blood H & H 03/25/23 03/27/23 03/28/23 Range/Units 14:55 06:27 07:39 Hgb 14.1 9.4 L D 8.9 L (13.0-17.5) gm/dL Hct 41.7 27.5 L 26.5 L (39.0-53.0) % Coagulation 03/25/23 03/26/23 03/27/23 Range/Units 14:55 08:51 06:27 INR 3.5 H 3.6 H 2.8 H (<1.2) 03/28/23 Range/Units 07:39 INR 1.6 H (<1.2) Result Diagrams: 03/28/23 07:39 03/28/23 07:39 Assessment and Plan Assessment: Left superior and inferior pubic rami fractures Plan: - Clinical and imaging findings were discussed with the patient. No surgical intervention is recommended at this time. Patient may weight bear to tolerance on the left lower extremity with a walker or crutches. Recommend evaluation by physical therapy for gait and balance training due to history of right AKA. - Pain management per admitting team. - We will follow patient peripherally as he remains inpatient. He should follow- up in the office in two weeks at [facility] for repeat x-rays.
[2023-03-28 20:23] LABS: Glucose,Whole Blood 176 mg/dL (70-110)
[2023-03-29] MEDS: INSULIN ASPART (NovoLOG) 100 UNIT/ML VIAL SQ SCH ×2 (06:31→11:19)
[2023-03-29 06:33] LABS: Glucose,Whole Blood 99 mg/dL (70-110)
[2023-03-29] MEDS: IPRATROPIUM-ALBUTEROL 3 ML NEB INHALATION SCH ×2 (07:55→11:16)
[2023-03-29] MEDS: BUDESONIDE 0.5 MG/2 ML NEBU INHALATION SCH (07:55)
[2023-03-29 07:58] LABS: INR 1.1 (<1.2); Prothrombin Time 11.7 sec (10.0-12.5)
[2023-03-29 08:49] LABS: Potassium 3.9 mmol/L (3.5-5.1)
[2023-03-29 08:50] LABS: African American GFR (CKD) 68 (>60 ml/min/1.73 sqM); Anion Gap 5 mmol/L; Blood Urea Nitrogen 26 mg/dL (9-20); Calcium 8.2 mg/dL (8.4-10.2); Carbon Dioxide 27 mmol/L (22-30); Chloride 103 mmol/L (98-107); Glucose 111 mg/dL (74-99); Magnesium 2.1 mg/dL (1.6-2.3); Non-African American GFR(CKD) 59 (>60 ml/min/1.73 sqM); Sodium 135 mmol/L (137-145)
[2023-03-29] MEDS: CHOLESTYRAMINE (WITH SUGAR) 4 GM PACKET PO SCH ×2 (09:47→15:01)
[2023-03-29] MEDS: FAMOTIDINE 20 MG TAB PO SCH (09:47)
[2023-03-29] MEDS: METOPROLOL TARTRATE 50 MG TAB PO SCH (09:47)
[2023-03-29] MEDS: PIPERACILLIN-TAZOBACTAM 3.375 GM in SODIUM CHLORIDE 0.9% 100 ML IVPB SCH (09:47)
[2023-03-29] MEDS: DIGOXIN 125 MCG TAB PO SCH (09:47)
[2023-03-29] MEDS: ATORVASTATIN 40 MG TAB PO SCH (09:47)
[2023-03-29 10:27] LABS: Basophils % (A) 0 %; Eosinophils # (A) 0.2 k/uL (0-0.7); Eosinophils % (A) 3 %; HCT 25.6 % (39.0-53.0); HGB 8.5 gm/dL (13.0-17.5); Lymphocytes # (A) 1.2 k/uL (1.0-4.8); Lymphocytes % (A) 16 %; MCH 31.3 pg (25.0-35.0); MCHC 33.3 g/dL (31.0-37.0); MCV 94.1 fL (80.0-100.0); Mean Platelet Volume 8.7; Monocytes # (A) 0.6 k/uL (0-1.0); Monocytes % (A) 8 %; Neutrophils # (A) 5.5 k/uL (1.3-7.7); Neutrophils % (A) 71 %; Platelet Count 197 k/uL (150-450); RBC 2.73 m/uL (4.30-5.90); RDW 14.5 % (11.5-15.5); WBC 7.7 k/uL (3.8-10.6)
[2023-03-29 11:11] LABS: Glucose,Whole Blood 120 mg/dL (70-110)
[2023-03-29 11:18] VITALS: BMI 19.8
--- NOTE | 2023-03-29 11:38 | P.PN ---
Subjective Patient is seen in follow-up for acute kidney injury. Renal function improved. Hemodynamically stable. Admits to good urine output. No vomiting or diarrhea. No active complaints. Vital signs are stable. General: No acute distress. HEENT: Head exam is unremarkable. LUNGS: No audible rhonchi or wheezes. HEART: Rate and Rhythm are regular. ABDOMEN: nNontender. EXTREMITITES: Right BKA. Groin hematoma noted. Objective - Vital Signs Vital signs: Vital Signs Temp 97.8 F 03/29/23 08:00 Pulse 88 03/29/23 11:30 Resp 19 03/29/23 08:00 BP 128/81 03/29/23 08:00 Pulse Ox 94 L 03/29/23 04:00 FiO2 21 03/27/23 11:10 Intake & Output 03/28/23 03/29/23 03/29/23 18:59 06:59 18:59 Intake Total 240 Balance 240 Weight 66.5 kg Intake: Oral 240 Other: Voiding Method Urinal # Voids 2 - Labs CBC & Chem 7: 03/29/23 06:59 03/29/23 06:59 Labs: Abnormal Lab Results - Last 24 Hours (Table) 03/28/23 03/28/23 03/28/23 Range/Units 07:39 16:27 20:20 RBC (4.30-5.90) m/uL Hgb (13.0-17.5) gm/dL Hct (39.0-53.0) % Sodium (137-145) mmol/L BUN (9-20) mg/dL Glucose (74-99) mg/dL POC Glucose (mg/dL) 192 H 176 H (70-110) mg/dL Calcium (8.4-10.2) mg/dL Iron 45 L (65-175) UG/DL Transferrin 172.0 L (204.0-354.0) mg/dL Ferritin 366.0 H (22.0-322.0) ng/mL 03/29/23 03/29/23 03/29/23 Range/Units 06:59 06:59 11:09 RBC 2.73 L (4.30-5.90) m/uL Hgb 8.5 L (13.0-17.5) gm/dL Hct 25.6 L (39.0-53.0) % Sodium 135 L (137-145) mmol/L BUN 26 H (9-20) mg/dL Glucose 111 H (74-99) mg/dL POC Glucose (mg/dL) 120 H (70-110) mg/dL Calcium 8.2 L (8.4-10.2) mg/dL Iron (65-175) UG/DL Transferrin (204.0-354.0) mg/dL Ferritin (22.0-322.0) ng/mL Microbiology - Last 24 Hours (Table) 03/27/23 06:27 Blood Culture - Preliminary Blood Assessment and Plan Plan: Assessment: 1. Acute kidney injury secondary to vasomotor nephropathy secondary to hemodynamic instability. Creatinine 2.59 on admission and is 1.2 today. Ba seline creatinine near 1 from November 2022. UA fairly benign. No hydronephrosis noted on kidney ultrasound. Left kidney atrophic. 2. Hypovolemic hyponatremia initially improved with IV fluids. Sodium level 135 today. 3. A. fib with RVR s/p Cardizem drip. On digoxin and metoprolol. Cardiology following. 4. Status post right BKA. 5. Left pelvic mass versus hematoma. Mass effect upon the urinary bladder. Vascular surgery following. 6. Acute blood loss anemia with concern for hematoma. Iron deficiency noted. Plan: Encourage oral intake. Continue to hold lisinopril as blood pressure in the lower side. Avoid nephrotoxins. Continue to monitor renal function and urine output. Preserved ejection fraction and echocardiogram. Add IV iron.
[2023-03-29] MEDS ORDERED: SODIUM FERRIC GLUCONAT-SUCROSE 125 MG in SODIUM CHLORIDE 0.9% 100 ML IVPB SCH (11:45)
--- NOTE | 2023-03-29 12:04 | P.PN ---
Subjective Progress Note Date: 03/29/23 Principal diagnosis: Pelvis hematoma Patient seen and examined today as a follow-up. States pain is well controlled. He was seen by orthopedics for fracture pelvis with no plans for any surgical intervention. Patient denies abdominal pain, chest pain, back pain, nausea or vomiting. No labs available from today. Objective - Vital Signs Vital signs: Vital Signs Temp 97.8 F 03/29/23 08:00 Pulse 84 03/29/23 08:09 Resp 19 03/29/23 08:00 BP 128/81 03/29/23 08:00 Pulse Ox 94 L 03/29/23 04:00 FiO2 21 03/27/23 11:10 Intake & Output 03/28/23 03/29/23 03/29/23 18:59 06:59 18:59 Intake Total 240 Balance 240 Intake: Oral 240 Other: Voiding Method Urinal # Voids 2 - Exam General appearance: The patient is alert, oriented, appears in no acute distress. HET: Head is normocephalic and atraumatic. Pupils are equal and reactive. Neck: Supple. Heart: Regular. Lungs: Equal expansion, normal respiratory effort. Abdomen: Soft, nontender, nondistended. Pelvis with significant ecchymosis down into the scrotum. Left flank ecchymosis. No carotid bruit. Extremities: Bilateral palpable femoral pulses. Right [id number] amputation stump well healed. Left lower extremity warm to the touch with sensorimotor intact. Nonpalpable popliteal PT and DP pulses. Neurological: No focal deficits. Strength and sensation are grossly intact. - Labs CBC & Chem 7: 03/29/23 06:59 03/29/23 06:59 Labs: Abnormal Lab Results - Last 24 Hours (Table) 03/28/23 03/28/23 03/28/23 Range/Units 07:39 07:39 16:27 PT 16.5 H (10.0-12.5) sec INR 1.6 H (<1.2) Sodium (137-145) mmol/L BUN (9-20) mg/dL Glucose (74-99) mg/dL POC Glucose (mg/dL) 192 H (70-110) mg/dL Calcium (8.4-10.2) mg/dL Iron 45 L (65-175) UG/DL Transferrin 172.0 L (204.0-354.0) mg/dL Ferritin 366.0 H (22.0-322.0) ng/mL 03/28/23 03/29/23 Range/Units 20:20 06:59 PT (10.0-12.5) sec INR (<1.2) Sodium 135 L (137-145) mmol/L BUN 26 H (9-20) mg/dL Glucose 111 H (74-99) mg/dL POC Glucose (mg/dL) 176 H (70-110) mg/dL Calcium 8.2 L (8.4-10.2) mg/dL Iron (65-175) UG/DL Transferrin (204.0-354.0) mg/dL Ferritin (22.0-322.0) ng/mL Microbiology - Last 24 Hours (Table) 03/27/23 06:27 Blood Culture - Preliminary Blood Assessment and Plan Assessment: 1. Pelvic hematoma 2. Abdominal aortic aneurysm status post repair 3. History of peripheral arterial disease status post previous bypass and stenting 4. History of Right [id number] amputation 5. Atrial fibrillation with RVR 6. Tobacco abuse 7. Posttraumatic stress disorder Plan: 1. Stat CTA abdomen and pelvis ordered and imaging reviewed by Dr. Reveles with no signs of active bleed and no endoleak 2. Diet as tolerated 3. May resume Coumadin 4. Recommend smoking cessation 5. There is no indication for any vascular surgical intervention at this time. Recommend patient follow-up with his vascular surgeon from [facility] following discharge. This was discussed with the patient who verbalized understanding. 6. Rest of medical management per primary medical team Thank you for this consultation. We will be on standby if needed. The impression and plan of care has been dictated as directed. Dr. Schulz I performed a history and examination of this patient, discussed the same with the dictator. I agree with the dictator's note ,documented as a scribe. Any additional findings or plans will be noted.
[2023-03-29 12:21] VITALS: RESP 18
[2023-03-29 13:01] VITALS: BP 122/66; PULSE 89; TEMP 98.3
--- NOTE | 2023-03-29 14:15 | P.DS ---
Providers Date of admission: 03/25/23 18:10 Attending physician: Caryn Chen MD Consults: 03/25/23 17:40 Consult Physician Urgent Consulting Provider: Chayo Juares Consult Reason/Comments: Acute kidney injury Do you want consulting provider notified?: Yes 03/25/23 18:03 Consult Physician Routine Consulting Provider: Sara Weeks Consult Reason/Comments: Leukocytosis, lactic acidosis Do you want consulting provider notified?: Yes 03/28/23 09:26 Consult Physician Routine Consulting Provider: Jaja Schulz Consult Reason/Comments: left pelvic mass hematoma/hemorrhage, aneurysmal sac 7.4 cm Do you want consulting provider notified?: Already Contacted 03/28/23 14:58 Consult Physician Routine Consulting Provider: Bruce Arnold Consult Reason/Comments: pubic rami fracture s/p fall Do you want consulting provider notified?: Yes Primary care physician: Stated None Hospital Course: Final Diagnosis -Mechanical fall secondary to amputation status and generalized weakness -Atrial fibrillation with rapid ventricular rate s/p cardizem gtt, heart rate is now controlled. -Leukocytosis without any evidence of infection except for atelectasis leukocytosis may be reactive, white count has normalized -Fall with trauma subtle nondisplaced pubic rami fracture with evidence of hematoma/hemorrhage in the left pelvic region -Anemia due to acute blood loss with underlying iron deficiency. -Pelvic hematoma and acute blood loss anemia vascular consultation patient has no active bleeding and no endoleak. -Peripheral artery disease with prior bypass/stenting -COPD with acute exacerbation: Patient was started on Pulmicort and inhalational treatments -Acute renal failure secondary to losartan and hypotension. -Hypovolemic hyponatremia expected to improve with IV fluids -Hypertension hx losartan remains on hold, blood pressure has normalized. -Abdominal aortic aneurysm with prior repair. -Coronary artery disease stents in the past -Depression -History of PTSD -History of DVT in the past -Sleep apnea -Status post right AKA Full Code Discharge Disposition Patient is stable for discharge. Patient recommended for weight bear to tolerance on the left lower extremity with a walker or crutches. Recommend evaluation by physical therapy for gait and balance training due to history of right AKA. Vascular has evaluated the patient recommending to follow up with his known vascular surgeon on discharge felt to be stable aneurysm and no signs of endoleak. No active bleeding noted on the abdominal CT. Ok to resume warfarin at 4 mg HS and repeat INR on Sunday and Sunday. INR will likely not be therapeutic until 5 to 6 days out. Repeat CBC, BMP in 2 to 3 days. Also patient to follow up with Dr Arnold in the office in 2 weeks for follow up xrays. Pt to see nephrology as well. Hospital Course This is a 77-year-old male who presented with atrial fibrillation does have known history of atrial fibrillation, right AKA, hypertension, hyperlipidemia, questionable CAD with multiple stenting. Also has aneursym repair. Patient sustained fall and was complaining of generalized weakness. He states he was trying to get into his side by side to drive to his doctor appointment when he lost his footing somehow and fell. This happened on Sunday, he is maintained on warfarin and did continue to take over the weekend. His granddaughter called EMS and he was brought in. INR 3.5 on admission. He was also found to have elevated creatinine of 2.559, baseline being normal. Blood pressure is low and losartan is being held and patient was bit hypotensive. Patient does have leukocytosis chest x-ray showed atelectasis without any evidence of pneumonia patient denied any UTI symptoms. Patient is also hyponatremic and was hydrated. Patient was in afib RVR when he came in. He was admitted to the hospital with consult placed to cardiology and nephrology. Patient was initially placed on cardizem gtt. His heart rate improved, his metoprolol was increased. Renal ultrasound done for that MARIO reveals left kidney is difficult to visualize atrophic bilateral renal lesion is most typical of cysts no obvious hydronephrosis. There was a heterogenesis area/mass complicated fluid collection adjacent to the bladder and recommended CT of the abdomen pelvis which was completed. Patient was found to have extensive pelvic bruising. Did have positive femoral pulses. Patient had an abdominal pelvis CT done showing a lobulated heterogenous lesion within the anterior left pelvis measuring up to 11.3cm concerning for likely hematoma with underlying hemorrhage mass not excluded. There is surrounding mass effect upon the urinary bladder. Trace amount of free hemorrhagic fluid within the pelvis. Follow-up is recommending. Postsurgical changes from aortobilliac stent graft with slightly decreased distal aortic aneurysm sac measuring up to 7.3 cm. This has increased size of proximal abdominal aortic aneurysm at the proximal aspect of the stent measuring up to 5.4 cm. Vascular consult was requested and a abdominal pelvis CT angiography was requested which does reveal a large 4.3 cm extraperitoneal hematoma on the left side of the pelvis likely secondary to subtle nondisplaced fracture of the left superior and inferior pubic rami. There is additional scattered mild extraperitoneal hemorrhage and trace hemorrhagic pelvic free fluid. His previous abdominal aortobiliac stent graft there is some acute hemorrhage into the [place] sac which is difficult to exclude. No flank endoleak is seen on delayed scan. The distal abdominal aortic [place] sac measures 7.6 cm versus 9.47 back in 2013. Large aneurysm at the left RN PEDIATRIC bifurcation there is no intra-arterial thrombus in one of the medial branches of the PSA. The SFA is occluded. Occluded right iliac limb of the stent graft. There is abnormal dilation at the RN PEDIATRIC bifurcation this could either represent a saccular aneurysm versus pseudoaneurysm. There are additional findings were reported. imaging reviewed by Dr. Reveles with no signs of active bleed and no endoleak. There is no indication for any vascular surgical intervention at this time. Recommend patient follow-up with his vascular surgeon from [facility] following discharge. Patient was resumed on warfarin which she was given a dose of vitamin K and his INR is now 1.1. Would expect INR to become therapeutic over the next 5 days. His creatinine has normalized to 1.20 BUN of 26 sodium of 135. White count 7.7 hemoglobin stable at 8.5. Iron studies were done which shows low iron there is possibility of underlying iron deficiency and patient was discharged on oral ferrous sulfate. PCO2 recommending subacute rehab. Patient was discharged with the above-mentioned recommendations. No chest pain or shortness of breath no nausea vomiting diarrhea lungs are clear S1-S2 auscultated abdomen soft and nontender. Please see medication reconciliation for list of current medication. Thank you for allowing us to participate because of this patient. The impression and plan of care has been dictated by Karen Arellano, Nurse Practitioner as directed. Dr. Emily MD I have performed a history and physical examination and medical decision making of this patient, discussed the same with the dictator, and agree with the dictators assessment and plan as written, documented as a scribe. Based on total visit time, I have performed more than 50% of this visit. Patient Condition at Discharge: Fair Plan - Discharge Summary Discharge Rx Participant: Yes New Discharge Prescriptions: New Warfarin [Coumadin] 4 mg PO HS #60 tab Famotidine [Pepcid] 20 mg PO DAILY tab Budesonide [Pulmicort] 0.5 mg INHALATION RT-BID ml Calcium Carbonate [Tums] 1,000 mg PO QID PRN tab PRN Reason: Heartburn INSULIN ASPART (NovoLOG) [NovoLOG (formulary)] 0 unit SQ ACHS each Acetaminophen Tab [Tylenol] 650 mg PO Q6HR PRN tab PRN Reason: Mild Pain Or Fever > 100.5 Continue Atorvastatin [Lipitor] 10 mg PO DAILY Digoxin [Digitek] 125 mcg PO DAILY Metoprolol Tartrate [Lopressor] 50 mg PO DAILY Discontinued Warfarin [Coumadin] 5 mg PO DAILY lisinopriL [Zestril] 10 mg PO DAILY Discharge Medication List Atorvastatin [Lipitor] 10 mg PO DAILY 07/09/16 [History] Digoxin [Digitek] 125 mcg PO DAILY 07/09/16 [History] Metoprolol Tartrate [Lopressor] 50 mg PO DAILY 03/25/23 [History] Acetaminophen Tab [Tylenol] 650 mg PO Q6HR PRN tab 03/29/23 [Rx] Budesonide [Pulmicort] 0.5 mg INHALATION RT-BID ml 03/29/23 [Rx] Calcium Carbonate [Tums] 1,000 mg PO QID PRN tab 03/29/23 [Rx] Famotidine [Pepcid] 20 mg PO DAILY tab 03/29/23 [Rx] INSULIN ASPART (NovoLOG) [NovoLOG (formulary)] 0 unit SQ ACHS each 03/29/23 [Rx] Warfarin [Coumadin] 4 mg PO HS #60 tab 03/29/23 [Rx] Follow up Appointment(s)/Referral(s): Mary Wall MD [REFERRING] - 1 Week Cole Ca MD [STAFF PHYSICIAN] - 1 Week Brigido Kaye DO [Doctor of Osteopathic Medicine] - As Needed Bruce Arnold MD [Medical Doctor] - 1 Week Ambulatory/Diagnostic Orders: Basic Metabolic Panel [LAB.AMB] Time Frame: 3 Days, Location: None Selected Complete Blood Count w/diff [LAB.AMB] Time Frame: 3 Days, Location: None Selected Prothrombin Time INR [LAB.AMB] Time Frame: 3 Days, Location: None Selected Activity/Diet/Wound Care/Special Instructions: Ok to resume warfarin at 4 mg HS and repeat INR on Sunday and Sunday. INR will likely not be therapeutic until 5 to 6 days out. Repeat CBC, BMP in 2 to 3 days Patient may weight bear to tolerance on the left lower extremity with a walker or crutches. Recommend evaluation by physical therapy for gait and balance training due to history of right AKA. Discharge/Stand Alone Forms: [facility] PCPs
--- NOTE | 2023-03-29 16:03 | P.PN ---
Subjective Progress Note Date: 03/28/23 Principal diagnosis: Leukocytosis Patient is a 77-year-old male with a past medical history significant for hyperlipidemia reflux DVT atrial fibrillation presenting to the hospital for evaluation of generalized weakness and falls, patient noticed to have elevated white count probably this infectious disease consultation was some abnormality on abdominal ultrasound On physical evaluation head that is 03/28/2023, the patient remains to be afebrile the patient is breathing comfortably on 2 L nasal cannula oxygen, the patient denies chest pain, shortness of breath or cough, patient denies nausea/vomiting , no diarrhea and no abdominal pain Patient white count is 8.8, creatinine is 1.27, blood cultures negative Objective - Vital Signs Vital signs: Vital Signs Temp 98.1 F 03/28/23 11:49 Pulse 85 03/28/23 12:08 Resp 14 03/28/23 11:49 BP 147/76 03/28/23 11:49 Pulse Ox 91 L 03/28/23 11:49 FiO2 21 03/27/23 11:10 Intake & Output 03/27/23 03/28/23 03/28/23 18:59 06:59 18:59 Intake Total 220 Output Total 200 400 Balance 20 -400 Weight 66.5 kg Intake: Oral 220 Output: Urine 200 400 Other: # Bowel Movements 1 - Exam GENERAL DESCRIPTION: An elderly male lying in bed in no distress RESPIRATORY SYSTEM: Unlabored breathing , decreased breath sounds at bases HEART: S1 S2 regular rate and rhythm , ABDOMEN: Soft , no tenderness EXTREMITIES: No edema feet - Labs CBC & Chem 7: 03/29/23 06:59 03/29/23 06:59 Labs: Abnormal Lab Results - Last 24 Hours (Table) 03/27/23 03/28/23 03/28/23 Range/Units 19:48 07:39 07:39 RBC 2.83 L (4.30-5.90) m/uL Hgb 8.9 L (13.0-17.5) gm/dL Hct 26.5 L (39.0-53.0) % PT 16.5 H (10.0-12.5) sec INR 1.6 H (<1.2) Sodium (137-145) mmol/L BUN (9-20) mg/dL Creatinine (0.66-1.25) mg/dL POC Glucose (mg/dL) 125 H (70-110) mg/dL Calcium (8.4-10.2) mg/dL 03/28/23 Range/Units 07:39 RBC (4.30-5.90) m/uL Hgb (13.0-17.5) gm/dL Hct (39.0-53.0) % PT (10.0-12.5) sec INR (<1.2) Sodium 134 L (137-145) mmol/L BUN 37 H (9-20) mg/dL Creatinine 1.27 H (0.66-1.25) mg/dL POC Glucose (mg/dL) (70-110) mg/dL Calcium 8.0 L (8.4-10.2) mg/dL Assessment and Plan (1) Leukocytosis Current Visit: Yes Status: Acute Code(s): D72.829 - ELEVATED WHITE BLOOD RAVINDRA L COUNT, UNSPECIFIED SNOMED Code(s): 203637853 Plan: 1patient with a leukocytosis in this patient presented to hospital with weakness and multiple falls patient did have some bruising to the left lower abdominal area and also noticed to be slight tenderness concerning for possible intra-abdominal source. 2patient CT of the abdominal pelvis suggestive of hematoma vascular surgery has been consulted 3Blood cultures currently pending CRP is mildly elevated 4-Patient to continue with Zosyn while waiting for cultures to be finalize and monitor clinical course closely Dictation was produced using [employer] dictation software. please excuse any grammatical, word or spelling errors. Time with Patient: Less than 30
--- NOTE | 2023-03-29 16:05 | P.PN ---
Subjective Progress Note Date: 03/29/23 Principal diagnosis: Leukocytosis Patient is a 77-year-old male with a past medical history significant for hyperlipidemia reflux DVT atrial fibrillation presenting to the hospital for evaluation of generalized weakness and falls, patient noticed to have elevated white count probably this infectious disease consultation was some abnormality on abdominal ultrasound On physical evaluation head that is 03/29/2023, the patient denies any fever or any chills, the patient is breathing comfortably on 2 L nasal cannula supplemental oxygen , the patient denies chest pain or cough, patient denies abdominal pain, no nausea/vomiting and no diarrhea has been reported Patient white count is 7.7, creatinine is 1.20, blood cultures negative Objective - Vital Signs Vital signs: Vital Signs Temp 98.3 F 03/29/23 12:00 Pulse 89 03/29/23 12:00 Resp 18 03/29/23 12:00 BP 122/66 03/29/23 12:00 Pulse Ox 100 03/29/23 12:00 FiO2 21 03/27/23 11:10 Intake & Output 03/28/23 03/29/23 03/29/23 18:59 06:59 18:59 Intake Total 575 Balance 575 Weight 66.5 kg Intake: Oral 575 Other: Voiding Method Urinal # Voids 2 - Exam GENERAL DESCRIPTION: An elderly male lying in bed in no distress RESPIRATORY SYSTEM: Unlabored breathing , decreased breath sounds at bases HEART: S1 S2 regular rate and rhythm , ABDOMEN: Soft , no tenderness EXTREMITIES: No edema feet - Labs CBC & Chem 7: 03/29/23 06:59 03/29/23 06:59 Labs: Abnormal Lab Results - Last 24 Hours (Table) 03/28/23 03/28/23 03/28/23 Range/Units 07:39 16:27 20:20 RBC (4.30-5.90) m/uL Hgb (13.0-17.5) gm/dL Hct (39.0-53.0) % Sodium (137-145) mmol/L BUN (9-20) mg/dL Glucose (74-99) mg/dL POC Glucose (mg/dL) 192 H 176 H (70-110) mg/dL Calcium (8.4-10.2) mg/dL Iron 45 L (65-175) UG/DL Transferrin 172.0 L (204.0-354.0) mg/dL Ferritin 366.0 H (22.0-322.0) ng/mL 03/29/23 03/29/23 03/29/23 Range/Units 06:59 06:59 11:09 RBC 2.73 L (4.30-5.90) m/uL Hgb 8.5 L (13.0-17.5) gm/dL Hct 25.6 L (39.0-53.0) % Sodium 135 L (137-145) mmol/L BUN 26 H (9-20) mg/dL Glucose 111 H (74-99) mg/dL POC Glucose (mg/dL) 120 H (70-110) mg/dL Calcium 8.2 L (8.4-10.2) mg/dL Iron (65-175) UG/DL Transferrin (204.0-354.0) mg/dL Ferritin (22.0-322.0) ng/mL Microbiology - Last 24 Hours (Table) 03/27/23 06:27 Blood Culture - Preliminary Blood Assessment and Plan (1) Leukocytosis Current Visit: Yes Status: Acute Code(s): D72.829 - ELEVATED WHITE BLOOD CELL COUNT, UNSPECIFIED SNOMED Code(s): 498660324 Plan: 1patient with a leukocytosis in this patient presented to hospital with weakness and multiple falls patient did have some bruising to the left lower abdominal area and also noticed to be slight tenderness concerning for possible intra-abdominal source. 2patient CT of the abdominal pelvis suggestive of hematoma vascular surgery has been consulted 3Blood cultures has been negative Leukocytosis more likely related to intra-abdominal hematoma and reactive, clinically not behaving as infection with no fever and cultures have been negative antibodies can be safely discontinued and no need for antibiotic discharge this was discussed with the [employer] for admitting team working on discharge Dictation was produced using [employer] dictation software. please excuse any grammatical, word or spelling errors. Time with Patient: Less than 30
[2023-03-29] MEDS ORDERED: WARFARIN 2 MG TAB PO ONE (18:00)
== END 2023-03-29 17:05 | DRG 308 ==
LOC: EC 14:06 → 3SCARD 18:10
PROVIDERS: ADMIT Internal Medicine; ATTEND Internal Medicine
DX: I48.19 Other persistent atrial fibrillation (principal); N17.0 Acute kidney failure with tubular necrosis; S32.592A Other specified fracture of left pubis, initial encounter for closed fracture; S32.512A Fracture of superior rim of left pubis, initial encounter for closed fracture; J44.1 Chronic obstructive pulmonary disease with (acute) exacerbation; D62 Acute posthemorrhagic anemia; E87.1 Hypo-osmolality and hyponatremia; J98.11 Atelectasis; I73.9 Peripheral vascular disease, unspecified; I71.40 Abdominal aortic aneurysm, without rupture, unspecified; I95.9 Hypotension, unspecified; I10 Essential (primary) hypertension; F32.A Depression, unspecified; E86.0 Dehydration; I25.10 Atherosclerotic heart disease of native coronary artery without angina pectoris; F43.10 Post-traumatic stress disorder, unspecified; G47.30 Sleep apnea, unspecified; H91.90 Unspecified hearing loss, unspecified ear; K21.9 Gastro-esophageal reflux disease without esophagitis; M19.90 Unspecified osteoarthritis, unspecified site; F17.210 Nicotine dependence, cigarettes, uncomplicated; S30.1XXA Contusion of abdominal wall, initial encounter; S30.0XXA Contusion of lower back and pelvis, initial encounter; Z89.611 Acquired absence of right leg above knee; Z89.511 Acquired absence of right leg below knee; E78.5 Hyperlipidemia, unspecified; E87.70 Fluid overload, unspecified; R73.9 Hyperglycemia, unspecified; E61.1 Iron deficiency; D72.828 Other elevated white blood cell count; N26.1 Atrophy of kidney (terminal); R79.1 Abnormal coagulation profile; E86.1 Hypovolemia; R29.6 Repeated falls; W01.0XXA Fall on same level from slipping, tripping and stumbling without subsequent striking against object, initial encounter; Y92.009 Unspecified place in unspecified non-institutional (private) residence as the place of occurrence of the external cause; Z95.5 Presence of coronary angioplasty implant and graft; I25.2 Old myocardial infarction; Z79.01 Long term (current) use of anticoagulants; Z86.718 Personal history of other venous thrombosis and embolism; Z91.81 History of falling; Z79.899 Other long term (current) drug therapy
CPT/HCPCS: 36415; 70450; 71045; 71046; 72125; 72170; 74174; 74176; 76770; 80048; 80053; 81003; 82728; 83540; 83550; 83605; 83735; 84100; 84145; 84484; 85025; 85027; 85610; 85730; 86140; 86850; 86900; 86901; 87040; 93005; 93306; 94640; 94760; 96361; 96374; 96375; 99291

== ENCOUNTER 2023-08-28 10:50 | Emergency (ER) | payer BC, MEDICARE ==
[2023-08-28 11:26] LABS: Basophils # (A) 0.1 k/uL (0-0.2); Basophils % (A) 1 %; Eosinophils # (A) 0.3 k/uL (0-0.7); Eosinophils % (A) 4 %; HCT 45.7 % (39.0-53.0); HGB 14.9 gm/dL (13.0-17.5); Lymphocytes # (A) 1.2 k/uL (1.0-4.8); Lymphocytes % (A) 18 %; MCH 29.4 pg (25.0-35.0); MCHC 32.5 g/dL (31.0-37.0); MCV 90.3 fL (80.0-100.0); Mean Platelet Volume 8.4; Monocytes # (A) 0.4 k/uL (0-1.0); Monocytes % (A) 7 %; Neutrophils # (A) 4.6 k/uL (1.3-7.7); Neutrophils % (A) 69 %; Platelet Count 155 k/uL (150-450); RBC 5.06 m/uL (4.30-5.90); RDW 14.4 % (11.5-15.5); WBC 6.7 k/uL (3.8-10.6)
--- NOTE | 2023-08-28 11:31 | ED ---
General Adult HPI - General Chief complaint: GI Bleed Stated complaint: Black Stool Time Seen by Provider: 08/28/23 11:04 Source: patient, family Mode of arrival: wheelchair Limitations: no limitations - History of Present Illness Initial comments: Dictation was produced using [employer] dictation software. please excuse any grammatical, word or spelling errors. Chief Complaint: 78-year-old male presents with constipation and black stool History of Present Illness: Patient 78-year-old male he is brought in by his granddaughter. He fell in March of last year. Since then reports that he has been having black stools. States that he gets bouts of abdominal cramping. Denies any abdominal pain at this time. No fever, chills or night sweats. Does take anticoagulation medications. Patient states that he has had a colonoscopy in the past and polyps were removed. The ROS documented in this emergency department record has been reviewed and con firmed by me. Those systems with pertinent positive or negative responses have been documented in the HPI. All other systems are other negative and/or noncontributory. - Related Data Home Medications Medication Instructions Recorded Confirmed Atorvastatin [Lipitor] 10 mg PO DAILY 07/09/16 03/25/23 Digoxin [Digitek] 125 mcg PO DAILY 07/09/16 03/25/23 Metoprolol Tartrate [Lopressor] 50 mg PO DAILY 03/25/23 03/25/23 Previous Rx's Medication Instructions Recorded Acetaminophen Tab [Tylenol] 650 mg PO Q6HR PRN tab 03/29/23 Budesonide [Pulmicort] 0.5 mg INHALATION RT-BID ml 03/29/23 Calcium Carbonate [Tums] 1,000 mg PO QID PRN tab 03/29/23 Famotidine [Pepcid] 20 mg PO DAILY tab 03/29/23 Warfarin [Coumadin] 4 mg PO HS #60 tab 03/29/23 Allergies Allergy/AdvReac Type Severity Reaction Status Date / Time No Known Allergies Allergy Verified 08/28/23 10:55 Review of Systems ROS Statement: Those systems with pertinent positive or pertinent negative responses have been documented in the HPI. ROS Other: All systems not noted in ROS Statement are negative. Past Medical History Past Medical History: Atrial Fibrillation, Deep Vein Thrombosis (DVT), GERD/Reflux, Hearing Disorder / Deafness, Hyperlipidemia, Osteoarthritis (OA), Pneumonia, Prostate Disorder, Sleep Apnea/CPAP/BIPAP Additional Past Medical History / Comment(s): DVT Last Myocardial Infarction Date:: UNKNOWN History of Any Multi-Drug Resistant Organisms: None Reported Past Surgical History: Heart Catheterization With Stent Additional Past Surgical History / Comment(s): femerol bypass right and left, removed steel from right lung and retired up diaphram, right above knee amputee Past Anesthesia/Blood Transfusion Reactions: No Reported Reaction Date of Last Stent Placement:: unknown Past Psychological History: Depression, PTSD Smoking Status: Current every day smoker Past Alcohol Use History: Occasional Past Drug Use History: None Reported - Past Family History Mother Family Medical History: Myocardial Infarction ([place]) Father Family Medical History: Dementia General Exam - General Exam Comments Initial Comments: PHYSICAL EXAM: General Impression: Alert and oriented x3, not in acute distress HEENT: Normocephalic atraumatic, extra-ocular movements intact, pupils equal and reactive to light bilaterally, mucous membranes moist. Cardiovascular: Heart regular rate and rhythm Chest: Able to complete full sentences, no retractions, no tachypnea Abdomen: abdomen soft, non-tender, non-distended, no organomegaly Musculoskeletal: Pulses present and equal in all extremities, no peripheral edema Motor: no focal deficits noted Neurological: CN II-XII grossly intact, no focal motor or sensory deficits noted Skin: Intact with no visualized rashes Psych: Normal affect and mood Rectal exam: No gross blood Limitations: no limitations Course Vital Signs 08/28/23 10:52 Temperature 97.6 F Pulse Rate 64 Respiratory 18 Rate Blood Pressure 188/89 O2 Sat by Pulse 97 Oximetry Medical Decision Making - Medical Decision Making Was pt. sent in by a medical professional or institution (, PA, SCHOOL CLEANER, urgent c are, hospital, or assisted...) When possible be specific @ -No Did you speak to anyone other than the patient for history (EMS, parent, family, police, friend...)? What history was obtained from this source @ -No Did you review nursing and triage notes (agree or disagree)? Why? @ -I reviewed and agree with nursing and triage notes Were old charts reviewed (outside hosp., previous admission, EMS record, old EKG, old radiological studies, urgent care reports/EKG's, assisted records)? Report findings @ -No old charts were reviewed Differential Diagnosis (chest pain, altered mental status, abdominal pain women, abdominal pain men, vaginal bleeding, musculoskeletal, weakness, fever, dyspnea, syncope, headache, dizziness, GI bleed, back pain, seizure, CVA, palpatations, mental health)? @ -Differential Abdominal Pain Men: Appendicitis, cholecystitis, diverticulosis, ischemic bowel, pancreatitis, hepatitis, UTI, gastroenteritis, AAA, incarcerated hernia, bowel obstruction, co nstipation, inflammatory bowel, hepatitis, peptic ulcer disease, splenic infarction, perforated viscus, testicular torsion, this is not meant to be an all-inclusive list EKG interpreted by me (3pts min.). @ -None done X-rays interpreted by me (1pt min.). @ -Abdominal x-ray is nonacute CT interpreted by me (1pt min.). @ -None done U/S interpreted by me (1pt. min.). @ -None done What testing was considered but not performed or refused? (CT, X-rays, U/S, labs)? Why? @ -None What meds were considered but not given or refused? Why? @ -None Did you discuss the management of the patient with other professionals (professionals i.e. , PA, SCHOOL CLEANER, lab, RT, psych nurse, pediatric social worker, cone machine feeder, teacher, department of natural resources officer, telephonic nurse case manager)? Give summary @ -No Was smoking cessation discussed for >3mins.? @ -No Was critical care preformed (if so, how long)? @ -No Were there social determinants of health that impacted care today? How? (Homelessness, low income, unemployed, alcoholism, drug addiction, transportation, low edu. Level, literacy, decrease access to med. care, group home, rehab)? @ -No Was there de-escalation of care discussed even if they declined (Discuss DNR or withdrawal of care, Hospice)? DNR status @ -No What co-morbidities impacted this encounter? (DM, HTN, Smoking, COPD, CAD, Ca ncer, CVA, ARF, Chemo, Hep., AIDS, mental health diagnosis, sleep apnea, morbid obesity)? @ -None Was patient admitted / discharged? Hospital course, mention meds given and route, prescriptions, significant lab abnormalities, going to OR and other pertinent info. @ -78-year-old male presents to the emergency department with black stool since March of last year along with episodic abdominal cramping. Vital signs upon arrival are within acceptable limits. Physical examination is benign. Abd ominal exam is negative. Patient denies any active abdominal pain at the bedside. Laboratory evaluation is unremarkable. No leukocytosis. Stool occult blood is negative. X-ray shows no obstruction. Patient discharged advised follow-up with primary care doctor. Undiagnosed new problem with uncertain prognosis? @ -No Drug Therapy requiring intensive monitoring for toxicity (Heparin, Nitro, In sulin, Cardizem)? @ -No Were any procedures done? @ -No Diagnosis/symptom? Acute, or Chronic, or Acute on Chronic? Uncomplicated (without systemic symptoms) or Complicated (systemic symptoms)? @ -Black stool Side effects of treatment? @ -No Exacerbation, Progression, or Severe Exacerbation? @ -No Poses a threat to life or bodily function? How? (Chest pain, [place], [place], pneumonia, PE, COPD, DKA, ARF, appy, cholecystitis, CVA, Diverticulitis, Homicidal, Suicidal, threat to staff... and all critical care pts) @ -No - Lab Data Result diagrams: 08/28/23 11:13 08/28/23 11:13 Lab Results 08/28/23 08/28/23 08/28/23 Range/Units 11:13 11:13 11:13 WBC 6.7 (3.8-10.6) k/uL RBC 5.06 (4.30-5.90) m/uL Hgb 14.9 (13.0-17.5) gm/dL Hct 45.7 (39.0-53.0) % MCV 90.3 (80.0-100.0) fL MCH 29.4 (25.0-35.0) pg MCHC 32.5 (31.0-37.0) g/dL RDW 14.4 (11.5-15.5) % Plt Count 155 (150-450) k/uL MPV 8.4 Neutrophils % 69 % Lymphocytes % 18 % Monocytes % 7 % Eosinophils % 4 % Basophils % 1 % Neutrophils # 4.6 (1.3-7.7) k/uL Lymphocytes # 1.2 (1.0-4.8) k/uL Monocytes # 0.4 (0-1.0) k/uL Eosinophils # 0.3 (0-0.7) k/uL Basophils # 0.1 (0-0.2) k/uL PT 11.1 (10.0-12.5) sec INR 1.0 (<1.2) APTT 25.4 (22.0-30.0) sec Sodium (137-145) mmol/L Potassium (3.5-5.1) mmol/L Chloride (98-107) mmol/L Carbon Dioxide (22-30) mmol/L Anion Gap mmol/L BUN (9-20) mg/dL Creatinine (0.66-1.25) mg/dL Est GFR (CKD-EPI)AfAm (>60 ml/min/1.73 sqM) Est GFR (CKD-EPI)NonAf (>60 ml/min/1.73 sqM) Glucose (74-99) mg/dL Calcium (8.4-10.2) mg/dL Total Bilirubin (0.2-1.3) mg/dL AST (17-59) U/L ALT (4-49) U/L Alkaline Phosphatase (38-126) U/L Total Protein (6.3-8.2) g/dL Albumin (3.5-5.0) g/dL Stool Occult Blood Negative (Negative) 08/28/23 Range/Units 11:13 WBC (3.8-10.6) k/uL RBC (4.30-5.90) m/uL Hgb (13.0-17.5) gm/dL Hct (39.0-53.0) % MCV (80.0-100.0) fL MCH (25.0-35.0) pg MCHC (31.0-37.0) g/dL RDW (11.5-15.5) % Plt Count (150-450) k/uL MPV Neutrophils % % Lymphocytes % % Monocytes % % Eosinophils % % Basophils % % Neutrophils # (1.3-7.7) k/uL Lymphocytes # (1.0-4.8) k/uL Monocytes # (0-1.0) k/uL Eosinophils # (0-0.7) k/uL Basophils # (0-0.2) k/uL PT (10.0-12.5) sec INR (<1.2) APTT (22.0-30.0) sec Sodium 136 L (137-145) mmol/L Potassium 4.5 (3.5-5.1) mmol/L Chloride 105 (98-107) mmol/L Carbon Dioxide 29 (22-30) mmol/L Anion Gap 2 mmol/L BUN 18 (9-20) mg/dL Creatinine 1.34 H (0.66-1.25) mg/dL Est GFR (CKD-EPI)AfAm 59 (>60 ml/min/1.73 sqM) Est GFR (CKD-EPI)NonAf 51 (>60 ml/min/1.73 sqM) Glucose 86 (74-99) mg/dL Calcium 8.9 (8.4-10.2) mg/dL Total Bilirubin 1.0 (0.2-1.3) mg/dL AST 16 L (17-59) U/L ALT 9 (4-49) U/L Alkaline Phosphatase 62 (38-126) U/L Total Protein 5.8 L (6.3-8.2) g/dL Albumin 3.4 L (3.5-5.0) g/dL Stool Occult Blood (Negative) Disposition Clinical Impression: Black stool Disposition: HOME SELF-CARE Condition: Good Instructions (If sedation given, give patient instructions): Chronic Abdominal Pain (ED) Is patient prescribed a controlled substance at d/c from ED?: No Referrals: [facility]inic [Primary Care Provider] - 1-2 days Time of Disposition: 12:30
[2023-08-28 11:36] LABS: ALT 9 U/L (4-49); AST 16 U/L (17-59); African American GFR (CKD) 59 (>60 ml/min/1.73 sqM); Albumin 3.4 g/dL (3.5-5.0); Alkaline Phosphatase 62 U/L (38-126); Anion Gap 2 mmol/L; Blood Urea Nitrogen 18 mg/dL (9-20); Calcium 8.9 mg/dL (8.4-10.2); Carbon Dioxide 29 mmol/L (22-30); Chloride 105 mmol/L (98-107); Glucose 86 mg/dL (74-99); Non-African American GFR(CKD) 51 (>60 ml/min/1.73 sqM); Potassium 4.5 mmol/L (3.5-5.1); Sodium 136 mmol/L (137-145); Total Protein 5.8 g/dL (6.3-8.2)
[2023-08-28 11:39] LABS: Partial Thromboplastin Time 25.4 sec (22.0-30.0); Prothrombin Time 11.1 sec (10.0-12.5)
[2023-08-28 11:56] VITALS: RESP 18; TEMP 97.6
--- NOTE | 2023-08-28 12:17 | XR ---
EXAMINATION TYPE: XR abdomen 1V DATE OF EXAM: 08/28/2023 COMPARISON: NONE HISTORY: Abdominal pain TECHNIQUE: One view abdominal series FINDINGS: The osseous structures are intact. The bowel gas pattern is nonspecific. These osteopenia and degene rative changes of the spine. Arthropathy of the hips greater on the left. Metallic density overlying the pubic symphysis with surgical clips overlying the bilateral femoral head. Postsurgical change involving the abdominal aorta and iliacs. Surgical sutures noted. Radiopaque dens ities are submitted. Chronic rib fractures are seen. Punctate hyperdensity in the left abdomen could be related to small r enal calculus. IMPRESSION: 1. Nonspecific abdomen with no diagnostic evidence of obstruction.
[2023-08-28 13:07] VITALS: BP 165/84; PULSE 69
== END 2023-08-28 12:47 | disposition home or self-care (01) ==
LOC: EC 10:50
DX: K92.1 Melena (principal); F17.200 Nicotine dependence, unspecified, uncomplicated
CPT/HCPCS: 36415; 74018; 80053; 82272; 85025; 85610; 85730; 99285

== ENCOUNTER 2023-09-02 10:52 | Inpatient (IN) | payer MEDICARE, BC ==
[2023-09-02 11:20] LABS: Glucose,Whole Blood 106 mg/dL (70-110)
[2023-09-02 11:26] LABS: Basophils % (A) 0 %; Eosinophils # (A) 0.1 k/uL (0-0.7); Eosinophils % (A) 1 %; HCT 46.7 % (39.0-53.0); HGB 15.8 gm/dL (13.0-17.5); Lymphocytes # (A) 0.5 k/uL (1.0-4.8); Lymphocytes % (A) 5 %; MCH 30.6 pg (25.0-35.0); MCHC 33.8 g/dL (31.0-37.0); MCV 90.4 fL (80.0-100.0); Mean Platelet Volume 9.4; Monocytes # (A) 0.7 k/uL (0-1.0); Monocytes % (A) 7 %; Neutrophils # (A) 8.4 k/uL (1.3-7.7); Neutrophils % (A) 87 %; Platelet Count 135 k/uL (150-450); RBC 5.16 m/uL (4.30-5.90); RDW 14.2 % (11.5-15.5); WBC 9.7 k/uL (3.8-10.6)
[2023-09-02] MEDS: SODIUM CHLORIDE 0.9% 500 ML 500 ML IV ONE (11:38)
[2023-09-02 11:45] LABS: ALT 10 U/L (4-49); AST 16 U/L (17-59); African American GFR (CKD) 5 (>60 ml/min/1.73 sqM); Albumin 3.7 g/dL (3.5-5.0); Alkaline Phosphatase 66 U/L (38-126); Anion Gap 16 mmol/L; Blood Urea Nitrogen 74 mg/dL (9-20); Calcium 8.6 mg/dL (8.4-10.2); Carbon Dioxide 16 mmol/L (22-30); Chloride 104 mmol/L (98-107); Glucose 113 mg/dL (74-99); Non-African American GFR(CKD) 5 (>60 ml/min/1.73 sqM); Sodium 136 mmol/L (137-145); Total Bilirubin 1.4 mg/dL (0.2-1.3)
--- NOTE | 2023-09-02 11:48 | ED ---
General Adult HPI - General Chief complaint: Altered Mental Status Stated complaint: AMS Time Seen by Provider: 09/02/23 10:54 Source: patient, EMS, RN notes reviewed, old records reviewed Mode of arrival: EMS Limitations: altered mental status - History of Present Illness Initial comments: 78-year-old male presenting with acute confusion over the past 24 hours. History is obtained from family members were at bedside. Patient is able to answer simple questions. Denies pain complaints. No history of vomiting. History of atrial fibrillation on Eliquis. - Related Data Home Medications Medication Instructions Recorded Confirmed Atorvastatin [Lipitor] 10 mg PO DAILY 07/09/16 03/25/23 Digoxin [Digitek] 125 mcg PO DAILY 07/09/16 03/25/23 Metoprolol Tartrate [Lopressor] 50 mg PO DAILY 03/25/23 03/25/23 Previous Rx's Medication Instructions Recorded Acetaminophen Tab [Tylenol] 650 mg PO Q6HR PRN tab 03/29/23 Budesonide [Pulmicort] 0.5 mg INHALATION RT-BID ml 03/29/23 Calcium Carbonate [Tums] 1,000 mg PO QID PRN tab 03/29/23 Famotidine [Pepcid] 20 mg PO DAILY tab 03/29/23 Warfarin [Coumadin] 4 mg PO HS #60 tab 03/29/23 Allergies Allergy/AdvReac Type Severity Reaction Status Date / Time No Known Allergies Allergy Verified 09/02/23 10:59 Review of Systems ROS Statement: Those systems with pertinent positive or pertinent negative responses have been documented in the HPI. ROS Other: All systems not noted in ROS Statement are negative. Past Medical History Past Medical History: Atrial Fibrillation, Deep Vein Thrombosis (DVT), GERD/Reflux, Hearing Disorder / Deafness, Hyperlipidemia, Osteoarthritis (OA), Pneumonia, Prostate Disorder, Sleep Apnea/CPAP/BIPAP Additional Past Medical History / Comment(s): DVT Last Myocardial Infarction Date:: UNKNOWN History of Any Multi-Drug Resistant Organisms: None Reported Past Surgical History: Heart Catheterization With Stent Additional Past Surgical History / Comment(s): femerol bypass right and left, removed steel from right lung and retired up diaphram, right above knee amputee Past Anesthesia/Blood Transfusion Reactions: No Reported Reaction Date of Last Stent Placement:: unknown Past Psychological History: Depression, PTSD Smoking Status: Current some day smoker - Past Family History Mother Family Medical History: Myocardial Infarction (NH) Father Family Medical History: Dementia General Exam Limitations: altered mental status General appearance: alert, in no apparent distress Head exam: Present: atraumatic Eye exam: Present: normal appearance, PERRL ENT exam: Present: mucous membranes dry Neck exam: Present: normal inspection. Absent: tenderness Respiratory exam: Present: normal lung sounds bilaterally. Absent: respiratory distress, wheezes Cardiovascular Exam: Present: regular rate, normal rhythm GI/Abdominal exam: Present: soft. Absent: distended, tenderness, guarding Extremities exam: Present: other (Right AKA) Neurological exam: Absent: alert, oriented X3, motor sensory deficit Skin exam: Present: warm, dry, intact Course Vital Signs 09/02/23 09/02/23 09/02/23 10:54 11:00 11:30 Temperature 98.5 F Pulse Rate 92 100 101 H Respiratory 22 12 25 H Rate Blood Pressure 199/120 199/120 195/117 O2 Sat by Pulse 93 L 93 L 96 Oximetry 09/02/23 09/02/23 09/02/23 12:00 12:30 13:05 Temperature Pulse Rate 98 123 H 83 Respiratory 17 24 Rate Blood Pressure 200/112 193/119 O2 Sat by Pulse 93 L Oximetry 09/02/23 09/02/23 13:14 14:35 Temperature Pulse Rate 93 101 H Respiratory 18 Rate Blood Pressure 179/124 O2 Sat by Pulse 98 Oximetry Medical Decision Making - Medical Decision Making Was pt. sent in by a medical professional or institution (, PA, CONDEMNATION ENGINEER, urgent care, hospital, or half-way...) When possible be specific @ -No Did you speak to anyone other than the patient for history (EMS, parent, family, police, friend...)? What history was obtained from this source @ -No Did you review nursing and triage notes (agree or disagree)? Why? @ -I reviewed and agree with nursing and triage notes Were old charts reviewed (outside hosp., previous admission, EMS record, old EKG, old radiological studies, urgent care reports/EKG's, half-way records)? Report findings @ -No old charts were reviewed Differential Diagnosis (chest pain, altered mental status, abdominal pain women, abdominal pain men, vaginal bleeding, weakness, fever, dyspnea, syncope, headache, dizziness, GI bleed, back pain, seizure, CVA, palpatations, mental health, musculoskeletal)? @ -Differential Altered Mental Status: Hypoglycemia, DKA, hypercapnia, ETOH, overdose, CO poisoning, trauma, myxedema coma, HTN encephalopathy, infection, encephalitis, psychosis, intercranial hemorrhage, hepatic encephalopathy, meningitis, CVA, this is not meant to be an all-inclusive list EKG interpreted by me (3pts min.). @EKG: Atrial fibrillation rate of 88, QRS duration 106, ST segment depression and biphasic T waves in V5 and V6, no ST segment elevation. X-rays interpreted by me (1pt min.). @ -None done CT interpreted by me (1pt min.). @ -None done U/S interpreted by me (1pt. min.). @ -None done What testing was considered but not performed or refused? (CT, X-rays, U/S, labs)? Why? @ -None What meds were considered but not given or refused? Why? @ -None Did you discuss the management of the patient with other professionals (yordy rogel i.e. , PA, CONDEMNATION ENGINEER, lab, RT, psych nurse, social work administrator, soda dispenser, teacher, state wildlife officer, case work aide)? Give summary @ -Case discussed with [facility], will admit, case discussed with Dr. Valentino casper for nephrology, case discussed with Dr. Rafael casper for ICU. Was smoking cessation discussed for >3mins.? @ -No Was critical care preformed (if so, how long)? @ yes, 35 min Were there social determinants of health that impacted care today? How? (Homelessness, low income, unemployed, alcoholism, drug addiction, transportation, low edu. Level, literacy, decrease access to med. care, snf, rehab)? @ -No Was there de-escalation of care discussed even if they declined (Discuss DNR or withdrawal of care, Hospice)? DNR status @ -No What co-morbidities impacted this encounter? (DM, HTN, Smoking, COPD, CAD, Cancer, CVA, ARF, Chemo, Hep., AIDS, mental health diagnosis, sleep apnea, morbid obesity)? @ -Hypertension, atrial fibrillation Was patient admitted / discharged? Hospital course, mention meds given and route, prescriptions, significant lab abnormalities, going to OR and other pertinent info. @ -[78-year-old male presenting with acute renal failure, creatinine of 10, elevated BUN, elevated potassium. This is treated with IV fluids and hyperkalemia medications. Repeated and is 6.1 after initial fluid bolus. Schulz catheter was placed. Patient will be admitted for acute renal failure. Family not currently available for discussion of goals of care, it was discussed that the patient is a DNR but not certain if this patient would want hemodialysis or not. Undiagnosed new problem with uncertain prognosis? @ -No Drug Therapy requiring intensive monitoring for toxicity (Heparin, Nitro, Insulin, Cardizem)? @ -No Were any procedures done? @ -No Diagnosis/symptom? @ -Acute renal failure, hyperkalemia Acute, or Chronic, or Acute on Chronic? @Acute Uncomplicated (without systemic symptoms) or Complicated (systemic symptoms)? @ -Default Side effects of treatment? @ -No Exacerbation, Progression, or Severe Exacerbation? @ -No Poses a threat to life or bodily function? How? (Chest pain, [place], NH, pneumonia, PE, COPD, DKA, ARF, appy, cholecystitis, CVA, Diverticulitis, Homicidal, Suicidal, threat to staff... and all critical care pts) @ -Yes, renal failure, hyperkalemia, arrhythmia - Lab Data Result diagrams: 09/02/23 11:08 09/02/23 12:20 Lab Results 09/02/23 09/02/23 09/02/23 Range/Units 11:08 11:08 11:08 WBC 9.7 (3.8-10.6) k/uL RBC 5.16 (4.30-5.90) m/uL Hgb 15.8 (13.0-17.5) gm/dL Hct 46.7 (39.0-53.0) % MCV 90.4 (80.0-100.0) fL MCH 30.6 (25.0-35.0) pg MCHC 33.8 (31.0-37.0) g/dL RDW 14.2 (11.5-15.5) % Plt Count 135 L (150-450) k/uL MPV 9.4 Neutrophils % 87 % Lymphocytes % 5 % Monocytes % 7 % Eosinophils % 1 % Basophils % 0 % Neutrophils # 8.4 H (1.3-7.7) k/uL Lymphocytes # 0.5 L (1.0-4.8) k/uL Monocytes # 0.7 (0-1.0) k/uL Eosinophils # 0.1 (0-0.7) k/uL Basophils # 0.0 (0-0.2) k/uL PT 11.0 (10.0-12.5) sec INR 1.0 (<1.2) APTT 24.5 (22.0-30.0) sec Sodium (137-145) mmol/L Potassium (3.5-5.1) mmol/L Chloride (98-107) mmol/L Carbon Dioxide (22-30) mmol/L Anion Gap mmol/L BUN (9-20) mg/dL Creatinine (0.66-1.25) mg/dL Est GFR (CKD-EPI)AfAm (>60 ml/min/1.73 sqM) Est GFR (CKD-EPI)NonAf (>60 ml/min/1.73 sqM) Glucose (74-99) mg/dL POC Glucose (mg/dL) (70-110) mg/dL POC Glu Acoustic Sensor Operator ID Calcium (8.4-10.2) mg/dL Total Bilirubin (0.2-1.3) mg/dL AST (17-59) U/L ALT (4-49) U/L Alkaline Phosphatase (38-126) U/L Creatine Kinase (55-170) U/L Troponin I (0.000-0.034) ng/mL Total Protein (6.3-8.2) g/dL Albumin (3.5-5.0) g/dL Urine Color Yellow Urine Appearance Cloudy (Clear) Urine pH 5.5 (5.0-8.0) Ur Specific Britton 1.024 (1.001-1.035) Urine Protein 2+ H (Negative) Urine Glucose (UA) Trace H (Negative) Urine Ketones Negative (Negative) Urine Blood Small H (Negative) Urine Nitrite Negative (Negative) Urine Bilirubin Negative (Negative) Urine Urobilinogen 3.0 (<2.0) mg/dL Ur Leukocyte Esterase Trace H (Negative) Urine RBC 3 (0-5) /hpf Urine WBC 23 H (0-5) /hpf Ur Squamous Epith Cells <1 (0-4) /hpf Urine Bacteria Rare H (None) /hpf Hyaline Casts 29 H (0-2) /lpf Urine Mucus Rare H (None) /hpf Urine Opiates Screen Detected H (NotDetected) Ur Oxycodone Screen Not Detected (NotDetected) Urine Methadone Screen Not Detected (NotDetected) Ur Barbiturates Screen Not Detected (NotDetected) U Tricyclic Antidepress Not Detected (NotDetected) Ur Phencyclidine Scrn Not Detected (NotDetected) Ur Amphetamines Screen Not Detected (NotDetected) U Methamphetamines Scrn Not Detected (NotDetected) U Benzodiazepines Scrn Not Detected (NotDetected) Urine Cocaine Screen Not Detected (NotDetected) U Marijuana (THC) Screen Not Detected (NotDetected) 09/02/23 09/02/23 09/02/23 Range/Units 11:08 11:08 11:11 WBC (3.8-10.6) k/uL RBC (4.30-5.90) m/uL Hgb (13.0-17.5) gm/dL Hct (39.0-53.0) % MCV (80.0-100.0) fL MCH (25.0-35.0) pg MCHC (31.0-37.0) g/dL RDW (11.5-15.5) % Plt Count (150-450) k/uL MPV Neutrophils % % Lymphocytes % % Monocytes % % Eosinophils % % Basophils % % Neutrophils # (1.3-7.7) k/uL Lymphocytes # (1.0-4.8) k/uL Monocytes # (0-1.0) k/uL Eosinophils # (0-0.7) k/uL Basophils # (0-0.2) k/uL PT (10.0-12.5) sec INR (<1.2) APTT (22.0-30.0) sec Sodium 136 L (137-145) mmol/L Potassium 6.5 H* (3.5-5.1) mmol/L Chloride 104 (98-107) mmol/L Carbon Dioxide 16 L (22-30) mmol/L Anion Gap 16 mmol/L BUN 74 H (9-20) mg/dL Creatinine 9.98 H* (0.66-1.25) mg/dL Est GFR (CKD-EPI)AfAm 5 (>60 ml/min/1.73 sqM) Est GFR (CKD-EPI)NonAf 5 (>60 ml/min/1.73 sqM) Glucose 113 H (74-99) mg/dL POC Glucose (mg/dL) 106 (70-110) mg/dL POC Glu Acoustic Sensor Operator Jesika Leung Calcium 8.6 (8.4-10.2) mg/dL Total Bilirubin 1.4 H (0.2-1.3) mg/dL AST 16 L (17-59) U/L ALT 10 (4-49) U/L Alkaline Phosphatase 66 (38-126) U/L Creatine Kinase (55-170) U/L Troponin I 0.055 H* (0.000-0.034) ng/mL Total Protein 6.0 L (6.3-8.2) g/dL Albumin 3.7 (3.5-5.0) g/dL Urine Color Urine Appearance (Clear) Urine pH (5.0-8.0) Ur Specific Britton (1.001-1.035) Urine Protein (Negative) Urine Glucose (UA) (Negative) Urine Ketones (Negative) Urine Blood (Negative) Urine Nitrite (Negative) Urine Bilirubin (Negative) Urine Urobilinogen (<2.0) mg/dL Ur Leukocyte Esterase (Negative) Urine RBC (0-5) /hpf Urine WBC (0-5) /hpf Ur Squamous Epith Cells (0-4) /hpf Urine Bacteria (None) /hpf Hyaline Casts (0-2) /lpf Urine Mucus (None) /hpf Urine Opiates Screen (NotDetected) Ur Oxycodone Screen (NotDetected) Urine Methadone Screen (NotDetected) Ur Barbiturates Screen (NotDetected) U Tricyclic Antidepress (NotDetected) Ur Phencyclidine Scrn (NotDetected) Ur Amphetamines Screen (NotDetected) U Methamphetamines Scrn (NotDetected) U Benzodiazepines Scrn (NotDetected) Urine Cocaine Screen (NotDetected) U Marijuana (THC) Screen (NotDetected) 09/02/23 Range/Units 12:20 WBC (3.8-10.6) k/uL RBC (4.30-5.90) m/uL Hgb (13.0-17.5) gm/dL Hct (39.0-53.0) % MCV (80.0-100.0) fL MCH (25.0-35.0) pg MCHC (31.0-37.0) g/dL RDW (11.5-15.5) % Plt Count (150-450) k/uL MPV Neutrophils % % Lymphocytes % % Monocytes % % Eosinophils % % Basophils % % Neutrophils # (1.3-7.7) k/uL Lymphocytes # (1.0-4.8) k/uL Monocytes # (0-1.0) k/uL Eosinophils # (0-0.7) k/uL Basophils # (0-0.2) k/uL PT (10.0-12.5) sec INR (<1.2) APTT (22.0-30.0) sec Sodium 136 L (137-145) mmol/L Potassium 6.1 H* (3.5-5.1) mmol/L Chloride 105 (98-107) mmol/L Carbon Dioxide 14 L (22-30) mmol/L Anion Gap 17 mmol/L BUN 72 H (9-20) mg/dL Creatinine 9.97 H* (0.66-1.25) mg/dL Est GFR (CKD-EPI)AfAm 5 (>60 ml/min/1.73 sqM) Est GFR (CKD-EPI)NonAf 5 (>60 ml/min/1.73 sqM) Glucose 117 H (74-99) mg/dL POC Glucose (mg/dL) (70-110) mg/dL POC Glu Acoustic Sensor Operator ID Calcium 8.2 L (8.4-10.2) mg/dL Total Bilirubin 1.2 (0.2-1.3) mg/dL AST 15 L (17-59) U/L ALT 10 (4-49) U/L Alkaline Phosphatase 67 (38-126) U/L Creatine Kinase 40 L (55-170) U/L Troponin I (0.000-0.034) ng/mL Total Protein 5.7 L (6.3-8.2) g/dL Albumin 3.4 L (3.5-5.0) g/dL Urine Color Urine Appearance (Clear) Urine pH (5.0-8.0) Ur Specific Britton (1.001-1.035) Urine Protein (Negative) Urine Glucose (UA) (Negative) Urine Ketones (Negative) Urine Blood (Negative) Urine Nitrite (Negative) Urine Bilirubin (Negative) Urine Urobilinogen (<2.0) mg/dL Ur Leukocyte Esterase (Negative) Urine RBC (0-5) /hpf Urine WBC (0-5) /hpf Ur Squamous Epith Cells (0-4) /hpf Urine Bacteria (None) /hpf Hyaline Casts (0-2) /lpf Urine Mucus (None) /hpf Urine Opiates Screen (NotDetected) Ur Oxycodone Screen (NotDetected) Urine Methadone Screen (NotDetected) Ur Barbiturates Screen (NotDetected) U Tricyclic Antidepress (NotDetected) Ur Phencyclidine Scrn (NotDetected) Ur Amphetamines Screen (NotDetected) U Methamphetamines Scrn (NotDetected) U Benzodiazepines Scrn (NotDetected) Urine Cocaine Screen (NotDetected) U Marijuana (THC) Screen (NotDetected) Critical Care Time Critical Care Time: Yes Total Critical Care Time: 35 Disposition Clinical Impression: Acute renal failure, Hyperkalemia Disposition: ADMITTED IP TO THIS HOSP Condition: Serious Is patient prescribed a controlled substance at d/c from ED?: No Referrals: [facility] [Primary Care Provider] - 1-2 days Time of Disposition: 14:42
[2023-09-02 11:54] LABS: Partial Thromboplastin Time 24.5 sec (22.0-30.0)
[2023-09-02 11:55] LABS: Potassium 6.5 mmol/L (3.5-5.1)
--- NOTE | 2023-09-02 12:04 | CT ---
EXAMINATION TYPE: CT brain wo con DATE OF EXAM: 09/02/2023 COMPARISON: 03/25/2023 HISTORY: ams CT DLP: 1095.4 mGycm Automated exposure control for dose reduction was used. FINDINGS: The ventricles, basal cisterns and sulci over convexities are moderately enlarged consistent with mod erate generalized atrophy but appropriate for the patient's age. There is moderate decreased density in the periventricular white matter consistent with moderate journalism internship casper ischemic white matter demyelination. There is a small focal area of marked decreased density in the left centrum semiovale consistent with a remote white matter infarct. There is no acute intra or extra-axial hemorrhage. Posterior fossa including the brainstem, fourth ventricle and cerebellopontine angles appear normal. There is significant arterial vascular calcification in the posterior and anterior circulation. The intraorbital contents appear normal and symmetric. The mastoid air cells and paranasal sinuses are well aerated. The calvarium is intact IMPRESSION: 1. NO ACUTE BLEED OR MASS EFFECT. 2. STABLE MODERATE SENESCENT CHANGES. 3. 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
[2023-09-02] MEDS: SODIUM CHLORIDE 0.9% 1,000 ML IV ONE (12:17)
[2023-09-02] MEDS: CALCIUM GLUCONATE IN NACL 1 GM in SALINE 1 100ML.BAG IVPB ONE (12:38)
[2023-09-02] MEDS: SODIUM BICARB 8.4% 50 ML SYR (1 MEQ/ML) IV ONE (12:38)
[2023-09-02] MEDS: SODIUM ZIRCONIUM CYCLOSILICATE 10 GM PACKET PO ONE (12:45)
[2023-09-02 12:51] LABS: Appearance,Urine Cloudy (Clear); Bacteria,Urine Rare /hpf; Bilirubin,Urine Negative (Negative); Blood,Urine Small (Negative); Color,Urine Yellow; Glucose,Urine (UA) Trace (Negative); Hyaline Casts,Urine 29 /lpf (0-2); Ketones,Urine Negative (Negative); Leukocyte Esterase,Urine Trace (Negative); Mucus,Urine Rare /hpf; Nitrite,Urine Negative (Negative); PH, Urine 5.5 (5.0-8.0); Protein,Urine 2+ (Negative); RBC,Urine 3 /hpf (0-5); Specific Gravity,Urine 1.024 (1.001-1.035); Squamous Epithelial Cell,Urine <1 /hpf (0-4); WBC,Urine 23 /hpf (0-5)
[2023-09-02 12:59] LABS: ALT 10 U/L (4-49); AST 15 U/L (17-59); African American GFR (CKD) 5 (>60 ml/min/1.73 sqM); Albumin 3.4 g/dL (3.5-5.0); Alkaline Phosphatase 67 U/L (38-126); Anion Gap 17 mmol/L; Blood Urea Nitrogen 72 mg/dL (9-20); Calcium 8.2 mg/dL (8.4-10.2); Carbon Dioxide 14 mmol/L (22-30); Chloride 105 mmol/L (98-107); Creatine Kinase 40 U/L (55-170); Glucose 117 mg/dL (74-99); Non-African American GFR(CKD) 5 (>60 ml/min/1.73 sqM); Sodium 136 mmol/L (137-145); Total Bilirubin 1.2 mg/dL (0.2-1.3); Total Protein 5.7 g/dL (6.3-8.2)
[2023-09-02 13:01] LABS: Amphetamine Screen,Urine Not Detected (NotDetected); Barbiturate Screen,Urine Not Detected (NotDetected); Benzodiazepines Screen,Urine Not Detected (NotDetected); Cocaine Screen,Urine Not Detected (NotDetected); Methadone Screen, Urine Not Detected (NotDetected); Opiate Screen,Urine Detected (NotDetected); Oxycodone Screen, Urine Not Detected (NotDetected); Phencyclidine Screen,Urine Not Detected (NotDetected); Tricyclic Antidepressant,Urine Not Detected (NotDetected); Urn Cannabinoid Scrn Not Detected (NotDetected)
[2023-09-02 13:03] LABS: Potassium 6.1 mmol/L (3.5-5.1)
[2023-09-02] MEDS: ALBUTEROL NEB (CONC) 2.5 MG/0.5 ML INHALATION ONE (13:04)
--- NOTE | 2023-09-02 13:34 | XR ---
EXAMINATION TYPE: XR chest 2V DATE OF EXAM: 09/02/2023 COMPARISON: 03/25/2023 HISTORY: Altered mental status TECHNIQUE: Frontal and lateral views of the chest are obtained. FINDINGS: There is no focal air space opacity, pleural effusion, or pneumothorax seen. The cardiac silhouette size is within normal limits. The osseous structures are intact. IMPRESSION: No acute cardiopulmonary process.
[2023-09-02] MEDS: DEXTROSE 50% SYRINGE 50 ML IVP ONE (14:26)
[2023-09-02] MEDS: DEXTROSE 5% IN WATER 1,000 ML with SODIUM BICARB (1 MEQ/ML) 150 ML IV SCH (14:26)
[2023-09-02] MEDS: INSULIN REGULAR 100 UNIT/ML VIAL (IV) IV ONE (14:26)
[2023-09-02] MEDS ORDERED: NALOXONE 0.4 MG/ML 1 ML VIAL IV PRN (14:37)
--- NOTE | 2023-09-02 16:45 | CT ---
EXAMINATION TYPE: CT abdomen pelvis wo con CT DLP: 531.5 mGycm, Automated exposure control for dose reduction was used. DATE OF EXAM: 09/02/2023 4:33 PM COMPARISON: CT angiogram 03/28/2023 CLINICAL INDICATION:Male, 78 years old with history of Acute renal failure; ams, renal failure TECHNIQUE: Axial CT of the abdomen and pelvis. Sagittal and coronal reformats were created on a [employer] workstation. Contrast used: (none if empty) Oral contrast used: without Oral Contrast (none if empty) FINDINGS: LOWER CHEST: Subsegmental atelectasis present in the lung bases. ABDOMEN LIVER: Unremarkable GALLBLADDER AND BILE DUCTS: Unremarkable. PANCREAS: Hazy fat stranding located near the pancreatic head and duodenum/IVC. SPLEEN: Unremarkable. ADRENAL GLANDS: Unremarkable. KIDNEYS AND URETERS: No evidence of hydronephrosis or renal calculus. The ureters are unremarkable. Bilateral renal cysts are appreciated. PELVIS BLADDER: Decompressed with catheter balloon present. REPRODUCTIVE: Unremarkable. ABDOMEN & PELVIS STOMACH AND BOWEL: Stomach and duodenum are unremarkable. Scattered colonic diverticula are identifie d. No evidence of bowel obstruction. PERITONEUM/RETROPERITONEUM: Interval decrease in size of a previously visualized pelvic hematoma as d escribed on the prior CT exam. VASCULATURE: Redemonstrated abdominal aortic aneurysm which is grossly stable. Aortic iliac stent gra ft is seen extending through the region of the aneurysm. Full evaluation is limited secondary to lack of IV contrast. Aneurysm measures up to 7.9 cm in the axial plane There is again aneurysmal dilation of the common iliac vessels in the region of femoral-femoral bypass In MUSCULOSKELETAL: Moderate to severe left hip joint osteophytic changes. Moderate multilevel degenerat carlie changes of the thoracic lumbar spine LYMPH NODES: No gross evidence for lymphadenopathy. SOFT TISSUE/ABDOMINAL WALL: Unremarkable IMPRESSION: 1. Stable size of abdominal aortic aneurysm with aortoiliac graft in place. 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 2. Nonspecific subtle haziness surrounding the pancreatic head. Correlate with any signs or symptoms of pancreatitis. 3. Colonic diverticulosis. 4. Decreased size of previously described pelvic hematoma.
[2023-09-02] MEDS: hydrALAZINE HCL 20 MG/ML 1 ML VIAL IVP PRN (18:14)
--- NOTE | 2023-09-02 18:24 | P.HPIM ---
History of Present Illness H&P Date: 09/02/23 Chief Complaint: confusion 78-year-old man, active smoker, history of A-fib, with significant history of right-sided AKA secondary to peripheral arterial disease, abdominal aortic aneurysm status post graft repair, recent mechanical fall resulting in pelvic hematoma, fractures, aortic graft leak, CAD status post stents, hypertension/hyperlipidemia presented for evaluation of confusion. Patient was brought in by his granddaughter who provides the majority of the history as patient is confused and does not participate much in interview. For my understanding, patient's daughter checks on him twice a day, noted that starting this morning he was much more confused than normal, prompting concern and therefore she called emergency medical services to transport him to the hospital for further evaluation. Patient does minimally participate in review of systems and denies pain, fevers, chills. According to the patient's daughter, she helps him with medications, but he does all of his own transfers, and does do his own cooking/cleaning in his home. Patient is wheelchair-bound as a consequence of his AKA. In the emergency room, patient was afebrile, 179 of 124, heart rate 101, 98% on 2 L nasal cannula. CBC was remarkable for mild thrombocytopenia to 135. Basic metabolic panel showed sodium of 136, potassium is 6.5, CO2 of 16, anion gap of 16, BUN of 74, creatinine of 9.98. Liver function test showed bilirubin of 1.4, AST of 16. Troponin is 0.055. UA showed 2+ protein, trace glucose, small blood, trace leukocyte esterase, 23 white blood cells, 29 hyaline casts. Urine tox screen is positive for opiates. Repeat basic metabolic panel showed potassium of 6.1, creatinine of 9.97, CO2 of 14. Patient was initiated on a bicarb drip, and provided shifting agents by the emergency room. Nephrology, pulmonology were consulted. Pulmonology ordered CT of the abdomen/pelvis given patient's previous history of pelvic hematoma and in order to rule out bilateral hydronephrosis, and this was negative for hydronephrosis. See above regarding review of systems Gen: in no apparent distress, resting comfortably in bed Eyes: PERRL, no scleral injection or icterus HENT: normocephalic, atraumatic, good hearing acuity, moist mucous membranes Neck: no tracheal deviation, full range of motion Resp: good air exchange, breathing comfortably with no accessory muscle use, no tactile fremitus CVS: good distal perfusion x 4, no pitting edema GI: soft, NTTP, ND, no hepatosplenomegaly : no suprapubic tenderness, no CVAT, monae catheter is present MSK: no clubbing, no cyanosis, no noted contractures of extremities, right-sided AKA Skin: no noted rashes, petechiae; temperature of skin is appropriate Neuro: moving all extremities without signs of weakness, CN II-XII intact Psych: cooperative, euthymic mood, insight and judgment impaired Labs and imaging as above Assessment/plan: Acute kidney injury with hyperkalemia Anion gap metabolic acidosis Elevated troponin secondary to the above -Admit the patient to inpatient with telemetry on cardiac selective -Patient is DNR -Nephrology consult -IV fluids with bicarb drip -Repeat labs in the morning Hypertensive urgency -Hydralazine as needed Paroxysmal atrial fibrillation with RVR -Fluid resuscitate prior to initiating rate control agents Peripheral arterial disease with history of right AKA History of CAD Abdominal aortic aneurysm status post graft repair Hypertension Hyperlipidemia -Home medication reconciliation is pending medication history completion Patient is DNR/DNI Past Medical History Past Medical History: Atrial Fibrillation, Deep Vein Thrombosis (DVT), GERD/Reflux, Hearing Disorder / Deafness, Hyperlipidemia, Osteoarthritis (OA), Prostate Disorder, Sleep Apnea/CPAP/BIPAP Additional Past Medical History / Comment(s): DVT Last Myocardial Infarction Date:: UNKNOWN History of Any Multi-Drug Resistant Organisms: None Reported Past Surgical History: Heart Catheterization With Stent Additional Past Surgical History / Comment(s): femerol bypass right and left, removed steel from right lung and retired up diaphram, right above knee amputee Past Anesthesia/Blood Transfusion Reactions: No Reported Reaction Date of Last Stent Placement:: unknown Past Psychological History: Depression, PTSD Smoking Status: Current some day smoker - Past Family History Mother Family Medical History: Myocardial Infarction ([place]) Father Family Medical History: Dementia Medications and Allergies Home Medications Medication Instructions Recorded Confirmed Type Atorvastatin [Lipitor] 10 mg PO DAILY 07/09/16 03/25/23 History Digoxin [Digitek] 125 mcg PO DAILY 07/09/16 03/25/23 History Metoprolol Tartrate [Lopressor] 50 mg PO DAILY 03/25/23 03/25/23 History Acetaminophen Tab [Tylenol] 650 mg PO Q6HR PRN tab 03/29/23 Rx Budesonide [Pulmicort] 0.5 mg INHALATION RT-BID ml 03/29/23 Rx Calcium Carbonate [Tums] 1,000 mg PO QID PRN tab 03/29/23 Rx Famotidine [Pepcid] 20 mg PO DAILY tab 03/29/23 Rx Warfarin [Coumadin] 4 mg PO HS #60 tab 03/29/23 Rx Allergies Allergy/AdvReac Type Severity Reaction Status Date / Time No Known Allergies Allergy Verified 09/02/23 10:59 Physical Exam Osteopathic Statement: *. No significant issues noted on an osteopathic structural exam other than those noted in the History and Physical/Consult. Vitals: Vital Signs Temp Pulse Resp BP Pulse Ox 09/02/23 18:05 98.8 F 93 18 177/99 98 09/02/23 16:14 91 18 188/112 98 09/02/23 15:25 98 18 184/109 98 09/02/23 14:35 101 H 18 179/124 98 09/02/23 13:14 93 09/02/23 13:05 83 09/02/23 12:30 123 H 24 193/119 09/02/23 12:00 98 17 200/112 93 L 09/02/23 11:30 101 H 25 H 195/117 96 09/02/23 11:00 100 12 199/120 93 L 09/02/23 10:54 98.5 F 92 22 199/120 93 L Intake and Output 09/02/23 09/02/23 09/02/23 06:59 14:59 22:59 Output Total 150 Balance -150 Output: Urine 150 Uretheral (Monae) 150 Other: Weight 58.967 kg Results CBC & Chem 7: 09/02/23 11:08 09/02/23 15:18 Labs: Abnormal Lab Results - Last 24 Hours (Table) 09/02/23 09/02/23 09/02/23 Range/Units 11:08 11:08 11:08 Plt Count 135 L (150-450) k/uL Neutrophils # 8.4 H (1.3-7.7) k/uL Lymphocytes # 0.5 L (1.0-4.8) k/uL Sodium 136 L (137-145) mmol/L Potassium 6.5 H* (3.5-5.1) mmol/L Carbon Dioxide 16 L (22-30) mmol/L BUN 74 H (9-20) mg/dL Creatinine 9.98 H* (0.66-1.25) mg/dL Glucose 113 H (74-99) mg/dL Calcium (8.4-10.2) mg/dL Total Bilirubin 1.4 H (0.2-1.3) mg/dL AST 16 L (17-59) U/L Creatine Kinase (55-170) U/L Troponin I (0.000-0.034) ng/mL Total Protein 6.0 L (6.3-8.2) g/dL Albumin (3.5-5.0) g/dL Urine Protein 2+ H (Negative) Urine Glucose (UA) Trace H (Negative) Urine Blood Small H (Negative) Ur Leukocyte Esterase Trace H (Negative) Urine WBC 23 H (0-5) /hpf Urine Bacteria Rare H (None) /hpf Hyaline Casts 29 H (0-2) /lpf Urine Mucus Rare H (None) /hpf Urine Opiates Screen Detected H (NotDetected) 09/02/23 09/02/23 09/02/23 Range/Units 11:08 12:20 15:18 Plt Count (150-450) k/uL Neutrophils # (1.3-7.7) k/uL Lymphocytes # (1.0-4.8) k/uL Sodium 136 L (137-145) mmol/L Potassium 6.1 H* 5.3 H (3.5-5.1) mmol/L Carbon Dioxide 14 L (22-30) mmol/L BUN 72 H (9-20) mg/dL Creatinine 9.97 H* (0.66-1.25) mg/dL Glucose 117 H (74-99) mg/dL Calcium 8.2 L (8.4-10.2) mg/dL Total Bilirubin (0.2-1.3) mg/dL AST 15 L (17-59) U/L Creatine Kinase 40 L (55-170) U/L Troponin I 0.055 H* (0.000-0.034) ng/mL Total Protein 5.7 L (6.3-8.2) g/dL Albumin 3.4 L (3.5-5.0) g/dL Urine Protein (Negative) Urine Glucose (UA) (Negative) Urine Blood (Negative) Ur Leukocyte Esterase (Negative) Urine WBC (0-5) /hpf Urine Bacteria (None) /hpf Hyaline Casts (0-2) /lpf Urine Mucus (None) /hpf Urine Opiates Screen (NotDetected)
--- NOTE | 2023-09-02 19:04 | P.CNPUL ---
History of Present Illness Consult date: 09/02/23 Chief complaint: acute kidney injury History of present illness: I was asked to evaluate this patient for possible ICU transfer as the patient is suffering from an acute kidney injury. The patient is 80 years old and he has chronic atrial fibrillation. He also has history of abdominal aortic aneurysm status post endovascular stent graft repair and he has undergone a previous right-sided BKA. He is known also to have CAD, has coronary stents, hypertension hyperlipidemia. He was found by his granddaughter today to be quite confused and this was out of ordinary for the patient. For that reason, the patient was brought into the hospital and the patient was found to be in acute kidney injury. Immediately Schulz catheter was inserted and the patient was started on a bicarb infusion. In summary, the patient's creatinine is at 9.98 with a BUN of 74. Potassium level was at 6.5. Sodium levels at 136. Normal LFTs. UA showed 23 WBCs, 3 RBCs and the troponin was at 0.05 with a normal CPK of 40. White cell count was at 9.7 with a hemoglobin 15.8. Noted the patient's previous creatinines have been mildly elevated as the patient's creatinine from 08/28/2023 was 1.34 and 04/02/2023 the creatinine was at 1.2. His GFR was 59 and 55 respectively consistent with stage III chronic kidney disease. No intake of any nonsteroidal anti-inflammatory medication. No NADYA inhibitor use. No other history is available. Note that the patient was in the hospital approximately 5 months ago and at that time the patient sustained a fall and he developed a pelvic hematoma based on the CAT scan of the abdomen and pelvis that was done at that time. Nevertheless he did not have any endovascular leaks. The CAT scan of the abdomen and pelvis that was done at that time, on 03/27/2023 showed a hematoma in the left pelvis measuring 11 cm in size and mass effect on the bladder. There was trace amount of hemorrhagic fluid within the pelvis. He also had some postsurgical changes in the Ortho by iliac area with endovascular stent grafting and the distal abdominal aortic aneurysm measuring 7.3 cm in size. There was an increase in the proximal abdominal aortic aneurysm in the proximal aspect of the stent and was measuring 5.4 cm. Based on that, a repeat CAT scan of the abdomen was requested in the emergency and the patient was found to have a stable sized abdominal aortic aneurysm with aorto endograft stents placed. 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 There was diverticulosis. There was decrease in the size of the previously described pelvic hematoma. As such, the patient also had a stable hemoglobin. For now, the patient is on bicarb infusion. He was given D50 insulin regarding his hyperkalemia and he was also given 50 mEq of sodium bicarb. Subsequent potassium level dropped down to 5.3. His respiratory status is stable. The patient has no significant difficulties in breathing. No hypotension. No signs of any fluid overload. Oh Review of Systems ROS unobtainable: due to mental status Past Medical History Past Medical History: Atrial Fibrillation, Deep Vein Thrombosis (DVT), GERD/Reflux, Hearing Disorder / Deafness, Hyperlipidemia, Osteoarthritis (OA), Prostate Disorder, Sleep Apnea/CPAP/BIPAP Additional Past Medical History / Comment(s): DVT Last Myocardial Infarction Date:: UNKNOWN History of Any Multi-Drug Resistant Organisms: None Reported Past Surgical History: Heart Catheterization With Stent Additional Past Surgical History / Comment(s): femerol bypass right and left, removed steel from right lung and retired up diaphram, right above knee amputee Past Anesthesia/Blood Transfusion Reactions: No Reported Reaction Date of Last Stent Placement:: unknown Past Psychological History: Depression, PTSD Smoking Status: Current some day smoker - Past Family History Mother Family Medical History: Myocardial Infarction ([place]) Father Family Medical History: Dementia Medications and Allergies Home Medications Medication Instructions Recorded Confirmed Type Atorvastatin [Lipitor] 10 mg PO DAILY 07/09/16 03/25/23 History Digoxin [Digitek] 125 mcg PO DAILY 07/09/16 03/25/23 History Metoprolol Tartrate [Lopressor] 50 mg PO DAILY 03/25/23 03/25/23 History Acetaminophen Tab [Tylenol] 650 mg PO Q6HR PRN tab 03/29/23 Rx Budesonide [Pulmicort] 0.5 mg INHALATION RT-BID ml 03/29/23 Rx Calcium Carbonate [Tums] 1,000 mg PO QID PRN tab 03/29/23 Rx Famotidine [Pepcid] 20 mg PO DAILY tab 03/29/23 Rx Warfarin [Coumadin] 4 mg PO HS #60 tab 03/29/23 Rx Allergies Allergy/AdvReac Type Severity Reaction Status Date / Time No Known Allergies Allergy Verified 09/02/23 10:59 Physical Exam Vitals: Vital Signs Temp Pulse Resp BP Pulse Ox 09/02/23 14:35 101 H 18 179/124 98 09/02/23 13:14 93 09/02/23 13:05 83 09/02/23 12:30 123 H 24 193/119 09/02/23 12:00 98 17 200/112 93 L 09/02/23 11:30 101 H 25 H 195/117 96 09/02/23 11:00 100 12 199/120 93 L 09/02/23 10:54 98.5 F 92 22 199/120 93 L Intake and Output 09/02/23 09/02/23 09/02/23 06:59 14:59 22:59 Other: Weight 58.967 kg General appearance the patient is in calm and comfortable, no acute distress. No signs of any respiratory failure Head exam was generally normal. There was no scleral icterus or corneal arcus. Mucous membranes were moist. Neck was supple and without jugular venous distension, thyromegaly, or carotid bruits. Carotids were easily palpable bilaterally. There was no adenopathy. Lungs were clear to auscultation and percussion, and with normal diaphragmatic excursion. No wheezes or rales were noted. Heart sounds are irregular consistent with atrial fibrillation. No significant murmurs appreciated. Abdominal exam revealed normal bowel sounds. The abdomen was soft, non-tender, and without masses, organomegaly, or appreciable enlargement of the abdominal aorta. Examination of the skin revealed no evidence of significant rashes, suspicious appearing nevi or other concerning lesions. Examination of the extremities revealed easily palpable radial, femoral and pedal pulses. There was no cyanosis, clubbing or edema. Neurologically the patient is confused. There is no focal neurological deficits. - Constitutional General appearance: cooperative Results - Laboratory Findings CBC and BMP: 09/02/23 11:08 09/02/23 15:18 PT/INR, D-dimer PT 11.0 sec (10.0-12.5) 09/02/23 11:08 INR 1.0 (<1.2) 09/02/23 11:08 Abnormal lab findings: Abnormal Labs 09/02/23 09/02/23 09/02/23 11:08 11:08 11:08 Plt Count 135 L Neutrophils # 8.4 H Lymphocytes # 0.5 L Sodium 136 L Potassium 6.5 H* Carbon Dioxide 16 L BUN 74 H Creatinine 9.98 H* Glucose 113 H Calcium Total Bilirubin 1.4 H AST 16 L Creatine Kinase Troponin I Total Protein 6.0 L Albumin Urine Protein 2+ H Urine Glucose (UA) Trace H Urine Blood Small H Ur Leukocyte Esterase Trace H Urine WBC 23 H Urine Bacteria Rare H Hyaline Casts 29 H Urine Mucus Rare H Urine Opiates Screen Detected H 09/02/23 09/02/23 11:08 12:20 Plt Count Neutrophils # Lymphocytes # Sodium 136 L Potassium 6.1 H* Carbon Dioxide 14 L BUN 72 H Creatinine 9.97 H* Glucose 117 H Calcium 8.2 L Total Bilirubin AST 15 L Creatine Kinase 40 L Troponin I 0.055 H* Total Protein 5.7 L Albumin 3.4 L Urine Protein Urine Glucose (UA) Urine Blood Ur Leukocyte Esterase Urine WBC Urine Bacteria Hyaline Casts Urine Mucus Urine Opiates Screen Assessment and Plan Plan: Acute kidney injury on top of chronic kidney disease. Patient has baseline stage III chronic kidney disease the patient has sustained an acute kidney injury. Consider underlying intravascular volume depletion and dehydration. No NADYA inhibitor's. No use of nonsteroidal anti-inflammatory medication. No other nephrotoxic agents. Schulz catheter is in place and the patient is currently on a bicarb infusion. Acute hyperkalemia, treated and potassium level is on decline Acute non-anion gap metabolic acidosis Pelvic hematoma related to a previous fall, follow-up CAT scan of the abdomen and pelvis shows decrease in size of the pelvic hematoma. No anatomic obstruction and there is no hydronephrosis. Altered mental status secondary to metabolic encephalopathy Chronic atrial fibrillation, maintained on long-term anticoagulation with warfarin, rate is controlled for now History of fall with development of pelvic hematoma, hemoglobin is stable and CAT scan of the abdomen pelvis that showed no evidence of any endovascular leak Peripheral vascular disease with previous aorto by iliac stent grafting Abdominal aortic aneurysm, stable COPD, currently inactive and stable Coronary disease with previous coronary stenting Previous above-knee amputation on the right Hypertension Depression/PTSD Remote history of DVT Obstructive sleep apnea Diverticulosis 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 Plan No need for ICU admission at this point in time Continue bicarb infusion Schulz catheter has been inserted and monitor urine output No evidence of any hydronephrosis on the CAT scan of the abdomen and pelvis there is no evidence of any anatomic obstruction the patient's pelvic hematoma has decreased in size Nephrology consultation Monitor potassium and electrolytes No signs of any fluid overload Avoid nephrotoxic agents Hold anticoagulants for now Check digoxin level Will continue to follow.
[2023-09-02 23:12] LABS: Glucose,Whole Blood 166 mg/dL (70-110)
[2023-09-03 00:21] LABS: ALT 8 U/L (4-49); AST 12 U/L (17-59); African American GFR (CKD) 5 (>60 ml/min/1.73 sqM); Albumin 2.7 g/dL (3.5-5.0); Alkaline Phosphatase 53 U/L (38-126); Anion Gap 9 mmol/L; Blood Urea Nitrogen 79 mg/dL (9-20); Carbon Dioxide 24 mmol/L (22-30); Chloride 102 mmol/L (98-107); Glucose 155 mg/dL (74-99); Non-African American GFR(CKD) 5 (>60 ml/min/1.73 sqM); Potassium 4.6 mmol/L (3.5-5.1); Sodium 135 mmol/L (137-145); Total Protein 4.7 g/dL (6.3-8.2)
[2023-09-03] MEDS: DIGOXIN 125 MCG TAB PO SCH (08:20)
[2023-09-03] MEDS: TAMSULOSIN 0.4 MG CAP.ER.24H PO SCH (08:20)
[2023-09-03] MEDS: CHOLECALCIFEROL 25 MCG (1000 IU) TABLET PO SCH (08:20)
[2023-09-03] MEDS: METOPROLOL TARTRATE 50 MG TAB PO SCH (08:20)
--- NOTE | 2023-09-03 10:43 | P.NPCON ---
History of Present Illness - Reason for Consult acute renal failure, chronic renal failure - History of Present Illness Reason for consultation: Acute kidney injury on chronic kidney disease History of present illness: Patient is a 78-year-old male seen in renal consultation for acute kidney injury on chronic kidney disease. Patient has chronic kidney disease stage IIIa with baseline creatinine 1.2-1.3 secondary to nephrosclerosis. Patient is not a very reliable historian. Patient states his oral intake has been poor the last few days. He denies history of diabetes. Patient was brought to the hospital due to altered mental status. Patient has history of abdominal aortic aneurysm status post endovascular stent graft repair. He also has history of right-sided below the knee amputation. Patient also has coronary disease with cardiac stents. Patient's potassium was elevated at 6.5 on admission which was medically treated. It was down to 4.6 as of last night. He was noted to be acidotic with a bicarb level as low as 14 and is currently maintained on bicarb drip. Acidosis improved. Creatinine elevated at 9.98 on admission but no improvement. He was on lisinopril outpatient which is currently held. Patient's blood pressure was elevated as high as 200/112 this admission. Annika mohr remains hypertensive with blood pressure 176/93 this morning. He has a Schulz catheter. Oliguric. Vital signs are stable. General: No acute distress. HEENT: Head exam is unremarkable. LUNGS: No audible rhonchi or wheezes. HEART: Rate and Rhythm are regular. ABDOMEN: Nontender. EXTREMITITES: Right BKA. Past Medical History Past Medical History: Atrial Fibrillation, Deep Vein Thrombosis (DVT), GERD/Reflux, Hearing Disorder / Deafness, Hyperlipidemia, Osteoarthritis (OA), Prostate Disorder, Sleep Apnea/CPAP/BIPAP Additional Past Medical History / Comment(s): DVT Last Myocardial Infarction Date:: UNKNOWN History of Any Multi-Drug Resistant Organisms: None Reported Past Surgical History: Heart Catheterization With Stent Additional Past Surgical History / Comment(s): femerol bypass right and left, removed steel from right lung and retired up diaphram, right above knee amputee Past Anesthesia/Blood Transfusion Reactions: No Reported Reaction Date of Last Stent Placement:: unknown Past Psychological History: Depression, PTSD Smoking Status: Current some day smoker - Past Family History Mother Family Medical History: Myocardial Infarction ([place]) Father Family Medical History: Dementia Medications and Allergies Home Medications Medication Instructions Recorded Confirmed Type Digoxin [Digitek] 125 mcg PO DAILY 07/09/16 09/02/23 History Metoprolol Tartrate [Lopressor] 50 mg PO DAILY 03/25/23 09/02/23 History Apixaban [Eliquis] 2.5 mg PO BID 09/02/23 09/02/23 History Atorvastatin [Lipitor] 10 mg PO HS 09/02/23 09/02/23 History Cholecalciferol [Vitamin D3 (25 25 mcg PO DAILY 09/02/23 09/02/23 History Mcg = 1000 Iu)] Tamsulosin [Flomax] 0.4 mg PO DAILY 09/02/23 09/02/23 History lisinopriL [Zestril] 10 mg PO DAILY 09/02/23 09/02/23 History Allergies Allergy/AdvReac Type Severity Reaction Status Date / Time No Known Allergies Allergy Verified 09/02/23 19:07 Physical Exam Vitals: Vital Signs Temp Pulse Resp BP Pulse Ox 09/03/23 09:50 68 18 176/93 95 09/03/23 07:59 98 18 163/89 94 L 09/03/23 06:22 92 18 158/97 93 L 09/03/23 05:19 84 18 153/95 93 L 09/03/23 04:00 86 18 139/92 93 L 09/03/23 02:18 93 10 L 148/97 93 L 09/03/23 01:26 96 13 172/108 94 L 09/03/23 00:00 85 20 172/104 94 L 09/02/23 23:00 73 11 L 167/108 96 09/02/23 22:03 89 18 168/90 96 09/02/23 22:02 98.0 F 84 17 168/90 95 09/02/23 20:43 82 18 169/91 97 09/02/23 19:00 89 23 171/99 97 09/02/23 18:05 98.8 F 93 18 177/99 98 09/02/23 16:14 91 18 188/112 98 09/02/23 15:25 98 18 184/109 98 09/02/23 14:35 101 H 18 179/124 98 09/02/23 13:14 93 09/02/23 13:05 83 09/02/23 12:30 123 H 24 193/119 09/02/23 12:00 98 17 200/112 93 L 09/02/23 11:30 101 H 25 H 195/117 96 09/02/23 11:00 100 12 199/120 93 L 09/02/23 10:54 98.5 F 92 22 199/120 93 L Intake and Output 09/02/23 09/03/23 09/03/23 22:59 06:59 14:59 Output Total 150 200 Balance -150 -200 Output: Urine 150 200 Uretheral (Schulz) 150 200 Results - Lab Results Most recent lab results Calcium 8.0 mg/dL (8.4-10.2) L 09/02/23 23:38 09/02/23 11:08 09/02/23 23:38 Assessment and Plan Plan: Assessment: 1. Acute kidney injury secondary to hemodynamic ATN. Creatinine 9.98 as of last night with no improvement in renal function with IV fluids. No hydronephrosis noted on CAT scan. 2. Chronic kidney disease stage IIIa with baseline creatinine 1.2-1.3. Suspect nephrosclerosis. 3. Hypertensive urgency. 4. Hyperkalemia secondary to acute kidney injury, lisinopril and acidosis. Improved with medical management. 5. Metabolic acidosis secondary to acute kidney injury improved with bicarb drip. 6. Abdominal aortic aneurysm status post endovascular stent graft repair. Plan: Stop bicarb drip. Start normal saline at 75 cc an hour. Avoid nephrotoxins. Metoprolol started today. Add scheduled hydralazine 25 mg 3 times daily. Hold for systolic blood pressure less than 130. Check renal duplex ultrasound to rule out renal artery stenosis. With no improvement in renal function and oliguria, initiate renal replacement therapy. Consult vascular surgery for dialysis catheter placement. Plan for first treatment of hemodialysis today and second treatment tomorrow. Monitor for renal recovery. Strict I's and O's. Check phosphorus level. Check serologies. Patient in agreement with the above plan. Thank you for the consultation. I will continue to follow the patient with you during his hospital stay.
[2023-09-03 10:59] LABS: Basophils % (A) 0 %; Eosinophils % (A) 0 %; HGB 13.4 gm/dL (13.0-17.5); Lymphocytes # (A) 0.5 k/uL (1.0-4.8); Lymphocytes % (A) 5 %; MCH 30.1 pg (25.0-35.0); MCHC 33.5 g/dL (31.0-37.0); MCV 89.8 fL (80.0-100.0); Mean Platelet Volume 8.6; Monocytes % (A) 9 %; Neutrophils # (A) 9.2 k/uL (1.3-7.7); Neutrophils % (A) 84 %; Platelet Count 152 k/uL (150-450); RBC 4.46 m/uL (4.30-5.90); RDW 14.2 % (11.5-15.5); WBC 10.9 k/uL (3.8-10.6)
[2023-09-03 11:16] LABS: African American GFR (CKD) 5 (>60 ml/min/1.73 sqM); Anion Gap 8 mmol/L; Blood Urea Nitrogen 84 mg/dL (9-20); Calcium 8.3 mg/dL (8.4-10.2); Carbon Dioxide 30 mmol/L (22-30); Chloride 97 mmol/L (98-107); Glucose 123 mg/dL (74-99); Magnesium 2.2 mg/dL (1.6-2.3); Non-African American GFR(CKD) 4 (>60 ml/min/1.73 sqM); Potassium 5.1 mmol/L (3.5-5.1); Sodium 135 mmol/L (137-145)
[2023-09-03] MEDS: SODIUM CHLORIDE 0.9% 1,000 ML IV SCH (11:22)
--- NOTE | 2023-09-03 12:49 | P.PN ---
Subjective Progress Note Date: 09/03/23 No new complaints Gen: in no apparent distress, resting comfortably in bed Eyes: PERRL, no scleral injection or icterus HENT: normocephalic, atraumatic, good hearing acuity, moist mucous membranes Neck: no tracheal deviation, full range of motion Resp: good air exchange, breathing comfortably with no accessory muscle use, no tactile fremitus CVS: good distal perfusion x 4, no pitting edema GI: soft, NTTP, ND, no hepatosplenomegaly : no suprapubic tenderness, no CVAT, monae catheter is present MSK: no clubbing, no cyanosis, no noted contractures of extremities, right-sided AKA Skin: no noted rashes, petechiae; temperature of skin is appropriate Neuro: moving all extremities without signs of weakness, CN II-XII intact Psych: cooperative, euthymic mood, insight and judgment impaired Hospital Course: 78-year-old man, active smoker, history of A-fib, with significant history of right-sided AKA secondary to peripheral arterial disease, abdominal aortic aneurysm status post graft repair, recent mechanical fall resulting in pelvic hematoma, fractures, aortic graft leak, CAD status post stents, hypertension/hyperlipidemia presented for evaluation of confusion. In the emergency room, patient was afebrile, 179 of 124, heart rate 101, 98% on 2 L nasal cannula. CBC was remarkable for mild thrombocytopenia to 135. Basic metabolic panel showed sodium of 136, potassium is 6.5, CO2 of 16, anion gap of 16, BUN of 74, creatinine of 9.98. Liver function test showed bilirubin of 1.4, AST of 16. Troponin is 0.055. UA showed 2+ protein, trace glucose, small blood, trace leukocyte esterase, 23 white blood cells, 29 hyaline casts. Urine tox screen is positive for opiates. Repeat basic metabolic panel showed potassium of 6.1, creatinine of 9.97, CO2 of 14. Patient was initiated on a bicarb drip, and provided shifting agents by the emergency room. Nephrology, pulmonology were consulted. Pulmonology ordered CT of the abdomen/pelvis given patient's previous history of pelvic hematoma and in order to rule out bilateral hydronephrosis, and this was negative for hydronephrosis. Assessment/plan: Acute kidney injury with hyperkalemia Anion gap metabolic acidosis Elevated troponin secondary to the above -Admit the patient to inpatient with telemetry on cardiac selective -Patient is DNR -Nephrology consult -IV fluids with bicarb drip -Repeat labs pending Hypertensive urgency -Hydralazine as needed Paroxysmal atrial fibrillation with RVR -Fluid resuscitate prior to initiating rate control agents Peripheral arterial disease with history of right AKA History of CAD Abdominal aortic aneurysm status post graft repair Hypertension Hyperlipidemia -Home medication reconciliation is pending medication history completion Patient is DNR/DNI Objective - Vital Signs Vital signs: Vital Signs Temp 98.0 F 09/02/23 22:02 Pulse 75 09/03/23 11:23 Resp 18 09/03/23 11:23 BP 178/112 09/03/23 11:23 Pulse Ox 93 L 09/03/23 11:23 FiO2 Intake & Output 09/02/23 09/03/23 09/03/23 18:59 06:59 18:59 Output Total 150 200 Balance -150 -200 Weight 58.967 kg Output: Urine 150 200 Uretheral (Monae) 150 200 - Labs CBC & Chem 7: 09/03/23 09:55 09/03/23 09:55 Labs: Abnormal Lab Results - Last 24 Hours (Table) 09/02/23 09/02/23 09/02/23 Range/Units 11:08 12:20 15:18 WBC (3.8-10.6) k/uL Neutrophils # (1.3-7.7) k/uL Lymphocytes # (1.0-4.8) k/uL Sodium 136 L (137-145) mmol/L Potassium 6.1 H* 5.3 H (3.5-5.1) mmol/L Chloride (98-107) mmol/L Carbon Dioxide 14 L (22-30) mmol/L BUN 72 H (9-20) mg/dL Creatinine 9.97 H* (0.66-1.25) mg/dL Glucose 117 H (74-99) mg/dL POC Glucose (mg/dL) (70-110) mg/dL Calcium 8.2 L (8.4-10.2) mg/dL AST 15 L (17-59) U/L Creatine Kinase 40 L (55-170) U/L Total Protein 5.7 L (6.3-8.2) g/dL Albumin 3.4 L (3.5-5.0) g/dL Urine Protein 2+ H (Negative) Urine Glucose (UA) Trace H (Negative) Urine Blood Small H (Negative) Ur Leukocyte Esterase Trace H (Negative) Urine WBC 23 H (0-5) /hpf Urine Bacteria Rare H (None) /hpf Hyaline Casts 29 H (0-2) /lpf Urine Mucus Rare H (None) /hpf Urine Opiates Screen Detected H (NotDetected) 09/02/23 09/02/23 09/03/23 Range/Units 23:10 23:38 09:55 WBC 10.9 H (3.8-10.6) k/uL Neutrophils # 9.2 H (1.3-7.7) k/uL Lymphocytes # 0.5 L (1.0-4.8) k/uL Sodium 135 L (137-145) mmol/L Potassium (3.5-5.1) mmol/L Chloride (98-107) mmol/L Carbon Dioxide (22-30) mmol/L BUN 79 H (9-20) mg/dL Creatinine 9.98 H* (0.66-1.25) mg/dL Glucose 155 H (74-99) mg/dL POC Glucose (mg/dL) 166 H (70-110) mg/dL Calcium 8.0 L (8.4-10.2) mg/dL AST 12 L (17-59) U/L Creatine Kinase (55-170) U/L Total Protein 4.7 L (6.3-8.2) g/dL Albumin 2.7 L (3.5-5.0) g/dL Urine Protein (Negative) Urine Glucose (UA) (Negative) Urine Blood (Negative) Ur Leukocyte Esterase (Negative) Urine WBC (0-5) /hpf Urine Bacteria (None) /hpf Hyaline Casts (0-2) /lpf Urine Mucus (None) /hpf Urine Opiates Screen (NotDetected) 09/03/23 Range/Units 09:55 WBC (3.8-10.6) k/uL Neutrophils # (1.3-7.7) k/uL Lymphocytes # (1.0-4.8) k/uL Sodium 135 L (137-145) mmol/L Potassium (3.5-5.1) mmol/L Chloride 97 L (98-107) mmol/L Carbon Dioxide (22-30) mmol/L BUN 84 H (9-20) mg/dL Creatinine 10.02 H* (0.66-1.25) mg/dL Glucose 123 H (74-99) mg/dL POC Glucose (mg/dL) (70-110) mg/dL Calcium 8.3 L (8.4-10.2) mg/dL AST (17-59) U/L Creatine Kinase (55-170) U/L Total Protein (6.3-8.2) g/dL Albumin (3.5-5.0) g/dL Urine Protein (Negative) Urine Glucose (UA) (Negative) Urine Blood (Negative) Ur Leukocyte Esterase (Negative) Urine WBC (0-5) /hpf Urine Bacteria (None) /hpf Hyaline Casts (0-2) /lpf Urine Mucus (None) /hpf Urine Opiates Screen (NotDetected)
--- NOTE | 2023-09-03 13:49 | P.GSCN ---
History of Present Illness History of present illness: 78-year-old gentleman patient was seen in the emergency room came with acute kidney injury history of chronic renal failure. Creatinine is a 9.97 with high potassium patient is scheduled to have a dialysis catheter. Patient has history of A. fib he takes a liquids he took yesterday we have discussed with nephrology we'll place Catheter right femoral approach. Patient also has history of abdominal aortic aneurysm stent placed in the past coronary artery disease with stent placement h istory of above-knee amputation in the past Neck is supple no bruit appreciated Chest is clear good and both lungs first second sound present patient has history of sleep apnea femorals are 1+ bilateral plan is patient Dialysis catheter we will arrange Past Medical History Past Medical History: Atrial Fibrillation, Deep Vein Thrombosis (DVT), GERD/Reflux, Hearing Disorder / Deafness, Hyperlipidemia, Osteoarthritis (OA), Prostate Disorder, Sleep Apnea/CPAP/BIPAP Additional Past Medical History / Comment(s): DVT Last Myocardial Infarction Date:: UNKNOWN History of Any Multi-Drug Resistant Organisms: None Reported Past Surgical History: Heart Catheterization With Stent Additional Past Surgical History / Comment(s): femerol bypass right and left, removed steel from right lung and retired up diaphram, right above knee amputee Past Anesthesia/Blood Transfusion Reactions: No Reported Reaction Date of Last Stent Placement:: unknown Past Psychological History: Depression, PTSD Smoking Status: Current some day smoker - Past Family History Mother Family Medical History: Myocardial Infarction ([place]) Father Family Medical History: Dementia Medications and Allergies Home Medications Medication Instructions Recorded Confirmed Type Digoxin [Digitek] 125 mcg PO DAILY 07/09/16 09/02/23 History Metoprolol Tartrate [Lopressor] 50 mg PO DAILY 03/25/23 09/02/23 History Apixaban [Eliquis] 2.5 mg PO BID 09/02/23 09/02/23 History Atorvastatin [Lipitor] 10 mg PO HS 09/02/23 09/02/23 History Cholecalciferol [Vitamin D3 (25 25 mcg PO DAILY 09/02/23 09/02/23 History Mcg = 1000 Iu)] Tamsulosin [Flomax] 0.4 mg PO DAILY 09/02/23 09/02/23 History lisinopriL [Zestril] 10 mg PO DAILY 03/24/24 03/24/24 History Allergies Allergy/AdvReac Type Severity Reaction Status Date / Time No Known Allergies Allergy Verified 09/02/23 19:07 Surgical - Exam Vital Signs Temp Pulse Resp BP Pulse Ox 98.5 F 92 22 199/120 93 L 09/02/23 10:54 09/02/23 10:54 09/02/23 10:54 09/02/23 10:54 09/02/23 10:54 Results - Labs 09/03/23 09:55 09/03/23 09:55 Abnormal Lab Results - Last 24 Hours (Table) 09/02/23 09/02/23 09/02/23 Range/Units 15:18 23:10 23:38 WBC (3.8-10.6) k/uL Neutrophils # (1.3-7.7) k/uL Lymphocytes # (1.0-4.8) k/uL Sodium 135 L (137-145) mmol/L Potassium 5.3 H (3.5-5.1) mmol/L Chloride (98-107) mmol/L BUN 79 H (9-20) mg/dL Creatinine 9.98 H* (0.66-1.25) mg/dL Glucose 155 H (74-99) mg/dL POC Glucose (mg/dL) 166 H (70-110) mg/dL Calcium 8.0 L (8.4-10.2) mg/dL AST 12 L (17-59) U/L Total Protein 4.7 L (6.3-8.2) g/dL Albumin 2.7 L (3.5-5.0) g/dL 09/03/23 09/03/23 Range/Units 09:55 09:55 WBC 10.9 H (3.8-10.6) k/uL Neutrophils # 9.2 H (1.3-7.7) k/uL Lymphocytes # 0.5 L (1.0-4.8) k/uL Sodium 135 L (137-145) mmol/L Potassium (3.5-5.1) mmol/L Chloride 97 L (98-107) mmol/L BUN 84 H (9-20) mg/dL Creatinine 10.02 H* (0.66-1.25) mg/dL Glucose 123 H (74-99) mg/dL POC Glucose (mg/dL) (70-110) mg/dL Calcium 8.3 L (8.4-10.2) mg/dL AST (17-59) U/L Total Protein (6.3-8.2) g/dL Albumin (3.5-5.0) g/dL Diabetes panel 09/02/23 09/02/23 09/03/23 Range/Units 15:18 23:38 09:55 Sodium 135 L 135 L (137-145) mmol/L Potassium 5.3 H 4.6 5.1 (3.5-5.1) mmol/L Chloride 102 97 L (98-107) mmol/L Carbon Dioxide 24 30 (22-30) mmol/L BUN 79 H 84 H (9-20) mg/dL Creatinine 9.98 H* 10.02 H* (0.66-1.25) mg/dL Glucose 155 H 123 H (74-99) mg/dL Calcium 8.0 L 8.3 L (8.4-10.2) mg/dL AST 12 L (17-59) U/L ALT 8 (4-49) U/L Alkaline Phosphatase 53 (38-126) U/L Total Protein 4.7 L (6.3-8.2) g/dL Albumin 2.7 L (3.5-5.0) g/dL Calcium panel 09/02/23 09/03/23 Range/Units 23:38 09:55 Calcium 8.0 L 8.3 L (8.4-10.2) mg/dL Albumin 2.7 L (3.5-5.0) g/dL Pituitary panel 09/02/23 09/02/23 09/03/23 Range/Units 15:18 23:38 09:55 Sodium 135 L 135 L (137-145) mmol/L Potassium 5.3 H 4.6 5.1 (3.5-5.1) mmol/L Chloride 102 97 L (98-107) mmol/L Carbon Dioxide 24 30 (22-30) mmol/L BUN 79 H 84 H (9-20) mg/dL Creatinine 9.98 H* 10.02 H* (0.66-1.25) mg/dL Glucose 155 H 123 H (74-99) mg/dL Calcium 8.0 L 8.3 L (8.4-10.2) mg/dL Adrenal panel 09/02/23 09/02/23 09/03/23 Range/Units 15:18 23:38 09:55 Sodium 135 L 135 L (137-145) mmol/L Potassium 5.3 H 4.6 5.1 (3.5-5.1) mmol/L Chloride 102 97 L (98-107) mmol/L Carbon Dioxide 24 30 (22-30) mmol/L BUN 79 H 84 H (9-20) mg/dL Creatinine 9.98 H* 10.02 H* (0.66-1.25) mg/dL Glucose 155 H 123 H (74-99) mg/dL Calcium 8.0 L 8.3 L (8.4-10.2) mg/dL Total Bilirubin 1.0 (0.2-1.3) mg/dL AST 12 L (17-59) U/L ALT 8 (4-49) U/L Alkaline Phosphatase 53 (38-126) U/L Total Protein 4.7 L (6.3-8.2) g/dL Albumin 2.7 L (3.5-5.0) g/dL
[2023-09-03 16:44] LABS: Hepatitis A Antibody IgM Nonreactive (Nonreactive); Hepatitis B Core IgM Nonreactive (Nonreactive); Hepatitis B Surface Antigen Nonreactive (Nonreactive); Hepatitis C IgG Antibody Nonreactive (Nonreactive)
--- NOTE | 2023-09-03 16:44 | P.PN ---
Subjective Progress Note Date: 09/03/23 Principal diagnosis: Acute on chronic kidney disease with hyperkalemia and acute anion gap metabolic acidosis I was asked to evaluate this patient for possible ICU transfer as the patient is suffering from an acute kidney injury. The patient is 80 years old and he has chronic atrial fibrillation. He also has history of abdominal aortic aneurysm status post endovascular stent graft repair and he has undergone a previous right-sided BKA. He is known also to have CAD, has coronary stents, hypertension hyperlipidemia. He was found by his granddaughter today to be quite confused and this was out of ordinary for the patient. For that reason, the patient was brought into the hospital and the patient was found to be in acute kidney injury. Immediately Schulz catheter was inserted and the patient was started on a bicarb infusion. In summary, the patient's creatinine is at 9.98 with a BUN of 74. Potassium level was at 6.5. Sodium levels at 136. Normal LFTs. UA showed 23 WBCs, 3 RBCs and the troponin was at 0.05 with a normal CPK of 40. White cell count was at 9.7 with a hemoglobin 15.8. Noted the patient's previous creatinines have been mildly elevated as the patient's creatinine from 08/28/2023 was 1.34 and 04/02/2023 the creatinine was at 1.2. His GFR was 59 and 55 respectively consistent with stage III chronic kidney disease. No intake of any nonsteroidal anti-inflammatory medication. No NADYA inhibitor use. No other history is available. Note that the patient was in the hospital approximately 5 months ago and at that time the patient sustained a fall and he developed a pelvic hematoma based on the CAT scan of the abdomen and pelvis that was done at that time. Nevertheless he did not have any endovascular leaks. The CAT scan of the abdomen and pelvis that was done at that time, on 03/27/2023 showed a hematoma in the left pelvis measuring 11 cm in size and mass effect on the bladder. There was trace amount of hemorrhagic fluid within the pelvis. He also had some postsurgical changes in the Ortho by iliac area with endovascular stent grafting and the distal abdominal aortic aneurysm measuring 7.3 cm in size. There was an increase in the proximal abdominal aortic aneurysm in the proximal aspect of the stent and was measuring 5.4 cm. Based on that, a repeat CAT scan of the abdomen was requested in the emergency and the patient was found to have a stable sized abdominal aortic aneurysm with aorto endograft stents placed. 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 There was diverticulosis. There was decrease in the size of the previously described pelvic hematoma. As such, the patient also had a stable hemoglobin. For now, the patient is on bicarb infusion. He was given D50 insulin regarding his hyperkalemia and he was also given 50 mEq of sodium bicarb. Subsequent potassium level dropped down to 5.3. His respiratory status is stable. The patient has no significant difficulties in breathing. No hypotension. No signs of any fluid overload. Patient was reevaluated today on 09/03/2023, patient was actually seen yesterday by Dr. Hall, and he did not feel the patient needed to be admitted to the ICU. Patient presented with acute kidney injury he is known to have history of chronic kidney disease, this time he has worsening kidney picture as well as hyperkalemia, anion gap metabolic acidosis, and the patient was seen by nephrology this morning, he is being considered for renal replacement therapy. Nephrology will arrange for a dialysis catheter placement, and I believe the patient will start on hemodialysis. Patient seems very comfortable on room air O2 sats is 95%, he is hemodynamically stable. WBC count is 10.9 hemoglobin 14.4 basic metabolic profile is normal potassium is down to 5.1 BUN is 84 creatinine 10.02 and the patient is oliguric Objective - Vital Signs Vital signs: Vital Signs Temp 98.0 F 09/02/23 22:02 Pulse 83 09/03/23 14:39 Resp 18 09/03/23 14:39 BP 121/108 09/03/23 14:39 Pulse Ox 95 09/03/23 14:39 FiO2 Intake & Output 09/02/23 09/03/23 09/03/23 18:59 06:59 18:59 Output Total 150 200 Balance -150 -200 Weight 58.967 kg Output: Urine 150 200 Uretheral (Schulz) 150 200 - Exam General: Reveals 78-year-old white male in no distress on room air Skin: Skin is warm and dry and no rashes or lesions are noted. Eye: Pupils are equal, round and reactive to light, extra-ocular movements are intact; there is normal conjunctiva bilaterally. Ears, nose, mouth and throat: There are moist mucous membranes and no oral lesions. Neck: The neck is supple, there is no tenderness or JVD. Cardiovascular: There is a regular rate and rhythm. No murmur, rub or gallop is appreciated. Respiratory: Minimal fine crackles at the bases no rhonchi no wheezes. Gastrointestinal: Soft, non-distended, non-tender abdomen without masses or organomegaly noted. There is no rebound or guarding present. Bowel sounds are unremarkable. Back: There is no tenderness to palpation in the midline. There is no obvious deformity. Musculoskeletal: Right above-knee amputation is noted Neurological: CN II-XII intact, Cranial nerves III through XII are intact. There are no obvious motor or sensory deficits. Coordination appears grossly intact. Speech is normal. Psychiatric: Cooperative, appropriate mood & affect, normal judgment. However the patient had no idea how he ended up in the hospital, could not give me details. - Labs CBC & Chem 7: 09/03/23 09:55 09/03/23 09:55 Labs: Abnormal Lab Results - Last 24 Hours (Table) 09/02/23 09/02/23 09/03/23 Range/Units 23:10 23:38 09:55 WBC 10.9 H (3.8-10.6) k/uL Neutrophils # 9.2 H (1.3-7.7) k/uL Lymphocytes # 0.5 L (1.0-4.8) k/uL Sodium 135 L (137-145) mmol/L Chloride (98-107) mmol/L BUN 79 H (9-20) mg/dL Creatinine 9.98 H* (0.66-1.25) mg/dL Glucose 155 H (74-99) mg/dL POC Glucose (mg/dL) 166 H (70-110) mg/dL Calcium 8.0 L (8.4-10.2) mg/dL AST 12 L (17-59) U/L Total Protein 4.7 L (6.3-8.2) g/dL Albumin 2.7 L (3.5-5.0) g/dL 09/03/23 Range/Units 09:55 WBC (3.8-10.6) k/uL Neutrophils # (1.3-7.7) k/uL Lymphocytes # (1.0-4.8) k/uL Sodium 135 L (137-145) mmol/L Chloride 97 L (98-107) mmol/L BUN 84 H (9-20) mg/dL Creatinine 10.02 H* (0.66-1.25) mg/dL Glucose 123 H (74-99) mg/dL POC Glucose (mg/dL) (70-110) mg/dL Calcium 8.3 L (8.4-10.2) mg/dL AST (17-59) U/L Total Protein (6.3-8.2) g/dL Albumin (3.5-5.0) g/dL Assessment and Plan Assessment: Impression: Acute on chronic kidney disease Acute hyperkalemia, treated and potassium level is on decline Acute anion gap metabolic acidosis Pelvic hematoma related to a previous fall, follow-up CAT scan of the abdomen and pelvis shows decrease in size of the pelvic hematoma. No anatomic obstruction and there is no hydronephrosis. Altered mental status secondary to metabolic encephalopathy Chronic atrial fibrillation, maintained on long-term anticoagulation with warfarin, rate is controlled for now History of fall with development of pelvic hematoma, hemoglobin is stable and CAT scan of the abdomen pelvis that showed no evidence of any endovascular leak Peripheral vascular disease with previous aorto by iliac stent grafting Abdominal aortic aneurysm, stable COPD, currently inactive and stable Coronary disease with previous coronary stenting Previous above-knee amputation on the right Hypertension Depression/PTSD Remote history of DVT Obstructive sleep apnea Diverticulosis 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 Recommendation: Again no need for ICU admission Continue bicarb infusion Nephrology is addressing renal replacement therapy to be started sometime today Continue to monitor electrolytes and potassium mostly No signs of fluid overload, chest x-ray showed no evidence of congestive heart failure Continue to avoid nephrotoxic agents Will continue to Time with Patient: Less than 30
[2023-09-03 17:23] LABS: Anti-DNA, DS unit <1.0 IU/mL; DNA Double-Stranded Negative (Negative)
[2023-09-03] MEDS: LIDOCAINE 1% INJ 10MG/ML (20 ML MDV) SQ ONE (17:49)
[2023-09-03] MEDS: MIDAZOLAM 2 MG/2 ML VIAL IVP ONE (17:50)
[2023-09-03] MEDS: IOPAMIDOL-370 100ML BTL INJ ONE (18:12)
[2023-09-03] MEDS: fentaNYL (PF) 50 MCG/ML 2 ML AMP IVP ONE (18:18)
[2023-09-03 18:42] LABS: Complement C3 90.7 mg/dL (80.0-207.0)
[2023-09-03] MEDS: hydrALAZINE HCL 25 MG TAB PO SCH (19:01)
[2023-09-03 19:18] LABS: Protein, Total 5.2 g/dL (6.2-8.2)
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
--- NOTE | 2023-09-03 22:40 | OP ---
OPERATIVE REPORT DATE OF SERVICE : 09/03/2023 PREOPERATIVE DIAGNOSIS: Acute chronic renal failure. POSTOPERATIVE DIAGNOSIS: Acute chronic renal failure. PROCEDURE PERFORMED: Ultrasound-guided 19 cm dialysis catheter. Right jugular approach. DESCRIPTION OF PROCEDURE: The patient was brought to the catheter finisher and inspector. Right side of the neck was prepped and drapes applied in a sterile manner. 1% lidocaine was infiltrated with IV sedation. Ultrasound- guided micropuncture introduced into the right jugular vein. Micropuncture catheter was passed and a 4-Belarusian dilator advanced on top of the guidewire. Then, we passed a regular guidewire, which was parked in the inferior vena cava. Then dilator was advanced on top of the guidewire. Then, we placed a 19 cm temporary dialysis catheter, right jugular approach. Flushed with heparin saline and hep-locked, secured with 3-0 nylon. The patient tolerated the procedure well. We will order x-ray of the chest. MMODL / IJN: [id number] / MTDD
[2023-09-03] MEDS: ATORVASTATIN 10 MG TAB PO SCH (22:59)
[2023-09-04 03:57] LABS: Hepatitis B Surface AB- Quant 3.5 mIU/mL
[2023-09-04 09:06] LABS: African American GFR (CKD) 7 (>60 ml/min/1.73 sqM); Anion Gap 13 mmol/L; Blood Urea Nitrogen 64 mg/dL (9-20); Calcium 7.9 mg/dL (8.4-10.2); Carbon Dioxide 21 mmol/L (22-30); Chloride 100 mmol/L (98-107); Glucose 91 mg/dL (74-99); Magnesium 1.9 mg/dL (1.6-2.3); Non-African American GFR(CKD) 6 (>60 ml/min/1.73 sqM); Phosphorus 5.5 mg/dL (2.5-4.5); Potassium 4.7 mmol/L (3.5-5.1); Sodium 134 mmol/L (137-145)
[2023-09-04 09:13] LABS: Basophils % (A) 0 %; Eosinophils % (A) 0 %; HCT 39.4 % (39.0-53.0); Lymphocytes # (A) 0.5 k/uL (1.0-4.8); Lymphocytes % (A) 5 %; MCH 29.7 pg (25.0-35.0); MCHC 33.1 g/dL (31.0-37.0); MCV 89.8 fL (80.0-100.0); Mean Platelet Volume 8.8; Monocytes # (A) 0.7 k/uL (0-1.0); Monocytes % (A) 7 %; Neutrophils % (A) 86 %; Platelet Count 149 k/uL (150-450); RBC 4.38 m/uL (4.30-5.90); RDW 14.2 % (11.5-15.5); WBC 9.3 k/uL (3.8-10.6)
--- NOTE | 2023-09-04 11:06 | P.PN ---
Subjective Patient is seen in follow-up for acute kidney injury on chronic kidney disease. Started on hemodialysis September 03, 2023. No problems with dialysis yesterday. Urine output remains low. Receiving IV fluids. Vital signs are stable. Blood pressure high. General: No acute distress. HEENT: Head exam is unremarkable. LUNGS: No audible rhonchi or wheezes. HEART: Rate and Rhythm are regular. ABDOMEN: Nontender. EXTREMITITES: Right AKA. Objective - Vital Signs Vital signs: Vital Signs Temp 98.6 F 09/04/23 09:00 Pulse 86 09/04/23 09:00 Resp 16 09/04/23 09:00 BP 187/97 09/04/23 09:00 Pulse Ox 94 L 09/04/23 09:00 FiO2 Intake & Output 09/03/23 09/04/23 09/04/23 18:59 06:59 18:59 Intake Total 530 10 Output Total 200 650 Balance -200 -120 10 Weight 49.5 kg Intake: IV 30 10 Invasive Line 1 10 Invasive Line 2 10 Invasive Line 4 10 10 Hemodialysis 500 Output: Urine 200 150 Uretheral (Schulz) 200 Hemodialysis 500 Other: Voiding Method Indwelling Catheter Indwelling Catheter Indwelling Catheter - Labs CBC & Chem 7: 09/04/23 07:54 09/04/23 07:54 Labs: Abnormal Lab Results - Last 24 Hours (Table) 09/03/23 09/03/23 09/03/23 Range/Units 09:55 09:55 11:59 WBC 10.9 H (3.8-10.6) k/uL Plt Count (150-450) k/uL Neutrophils # 9.2 H (1.3-7.7) k/uL Lymphocytes # 0.5 L (1.0-4.8) k/uL Sodium 135 L (137-145) mmol/L Chloride 97 L (98-107) mmol/L Carbon Dioxide (22-30) mmol/L BUN 84 H (9-20) mg/dL Creatinine 10.02 H* (0.66-1.25) mg/dL Glucose 123 H (74-99) mg/dL Calcium 8.3 L (8.4-10.2) mg/dL Phosphorus (2.5-4.5) mg/dL Total Protein (PEP) 5.2 L (6.2-8.2) g/dL 09/04/23 09/04/23 Range/Units 07:54 07:54 WBC (3.8-10.6) k/uL Plt Count 149 L (150-450) k/uL Neutrophils # 8.0 H (1.3-7.7) k/uL Lymphocytes # 0.5 L (1.0-4.8) k/uL Sodium 134 L (137-145) mmol/L Chloride (98-107) mmol/L Carbon Dioxide 21 L (22-30) mmol/L BUN 64 H (9-20) mg/dL Creatinine 7.97 H* (0.66-1.25) mg/dL Glucose (74-99) mg/dL Calcium 7.9 L (8.4-10.2) mg/dL Phosphorus 5.5 H (2.5-4.5) mg/dL Total Protein (PEP) (6.2-8.2) g/dL Assessment and Plan Plan: Assessment: 1. Acute kidney injury secondary to hemodynamic ATN. Creatinine greater than 10 this admission. Started on hemodialysis September 03, 2023. No hydronephrosis noted on CAT scan. 2. Chronic kidney disease stage IIIa with baseline creatinine 1.2-1.3. Suspect nephrosclerosis. 3. Hypertensive urgency. 4. Hyperkalemia secondary to acute kidney injury, lisinopril and acidosis. Improved with medical management. 5. Metabolic acidosis secondary to acute kidney injury status post bicarb drip. 6. Abdominal aortic aneurysm status post endovascular stent graft repair. 7. Hyperphosphatemia secondary to acute kidney injury. Phosphorus level 5.5 dated September 03, 2023. Plan: Second treatment of hemodialysis today. Maintain normal saline for another day. Avoid nephrotoxins. Increase dose of hydralazine to 100 mg 3 times daily. Maintain as needed IV hydralazine. Follow-up renal duplex ultrasound to rule out renal artery stenosis. Monitor for renal recovery. Strict I's and O's. Follow-up serologies. Negative so far. Add PhosLo with meals.
[2023-09-04] MEDS: CALCIUM ACETATE 667 MG TAB PO SCH (12:05)
--- NOTE | 2023-09-04 13:13 | P.PN ---
Subjective Progress Note Date: 09/04/23 78-year-old man, active smoker, history of A-fib, with significant history of right-sided AKA secondary to peripheral arterial disease, abdominal aortic aneurysm status post graft repair, recent mechanical fall resulting in pelvic hematoma, fractures, aortic graft leak, CAD status post stents, hypertensio n/hyperlipidemia presented for evaluation of confusion. In the emergency room, patient was afebrile, 179 of 124, heart rate 101, 98% on 2 L nasal cannula. CBC was remarkable for mild thrombocytopenia to 135. Basic metabolic panel showed sodium of 136, potassium is 6.5, CO2 of 16, anion gap of 16, BUN of 74, creatinine of 9.98. Liver function test showed bilirubin of 1.4, AST of 16. Troponin is 0.055. UA showed 2+ protein, trace glucose, small blood, trace leukocyte esterase, 23 white blood cells, 29 hyaline casts. Urine tox screen is positive for opiates. Repeat basic metabolic panel showed potassium of 6.1, creatinine of 9.97, CO2 of 14. Patient was initiated on a bicarb drip, and provided shifting agents by the emergency room. Nephrology, pulmonology were consulted. Pulmonology ordered CT of the abdomen/pelvis given patient's previous history of pelvic hematoma and in order to rule out bilateral hydronephrosis, and this was negative for hydronephrosis. Nephrology consulted, recommended HD. Vascular surgery consulted for HD access. Started on HD on 09/02. Plans for HD 09/03. 09/03 Patient was seen and examined. He reports no complaints. CBC Plt 149. BMP Na 134, bicarb 21, BUN 64, Cr 7.97, Ca 7.9. Phos 5.5. Mag 1.9. Nephrology note reviewed, plans for HD today. General: non toxic, no distress, appears at stated age Derm: warm, dry Head: atraumatic, normocephalic, symmetric Eyes: EOMI, no lid lag, anicteric sclera Mouth: no lip lesion, mucus membranes moist Cardiovascular: S1S2 reg, no murmur Lungs: Clear to auscultation bilateral, no rhonchi, no rales , no accessory muscle use Ext: no gross muscle atrophy, no edema, R AKA : Schulz catheter present Neuro: no focal neuro deficits Psych: Alert, oriented, appropriate affect Based on my assessment of this patient, this patient meets a moderate complexity level of care. Patient has an acute diagnosis of MARIO on CKD with metabolic abnormalities that poses a threat to life or bodily function. MARIO on CKD: Plans for HD today. Phoslo 667 mg PO BID. Nephrology on board. Hypertensive urgency: Renal artery duplex pending. Hydralazine 100 mg PO TID with 10 mg IV Q4H with parameters. Metoprolol 50 mg PO QD. Metabolic acidosis: Expected to resolve with HD. Elevated troponin: Likely troponin leak. No chest pain. Repeat troponin tomorrow. CODE STATUS: FULL CODE. DVT Prophylaxis: Heparin SQ GI Prophylaxis: Designated medical POA if patient is not able to make medical decisions for themselves: I have reviewed the following senior clinical consultant notes: Nephrology I have reviewed the results of the following tests: CBC, BMP I have ordered the following tests: BMP. Troponin I have discussed the care of this patient with the following independent historian: Case management. I have independently interpreted the following test below: I have discussed the management of this patient with the following physician: Objective - Vital Signs Vital signs: Vital Signs Temp 98.6 F 09/04/23 09:00 Pulse 86 09/04/23 09:00 Resp 16 09/04/23 09:00 BP 187/97 09/04/23 09:00 Pulse Ox 94 L 09/04/23 09:00 FiO2 Intake & Output 09/03/23 09/04/23 09/04/23 18:59 06:59 18:59 Intake Total 530 10 Output Total 200 650 Balance -200 -120 10 Weight 49.5 kg Intake: IV 30 10 Invasive Line 1 10 Invasive Line 2 10 Invasive Line 4 10 10 Hemodialysis 500 Output: Urine 200 150 Uretheral (Schulz) 200 Hemodialysis 500 Other: Voiding Method Indwelling Catheter Indwelling Catheter Indwelling Catheter - Labs CBC & Chem 7: 09/04/23 07:54 09/04/23 07:54 Labs: Abnormal Lab Results - Last 24 Hours (Table) 09/03/23 09/04/23 09/04/23 Range/Units 11:59 07:54 07:54 Plt Count 149 L (150-450) k/uL Neutrophils # 8.0 H (1.3-7.7) k/uL Lymphocytes # 0.5 L (1.0-4.8) k/uL Sodium 134 L (137-145) mmol/L Carbon Dioxide 21 L (22-30) mmol/L BUN 64 H (9-20) mg/dL Creatinine 7.97 H* (0.66-1.25) mg/dL Calcium 7.9 L (8.4-10.2) mg/dL Phosphorus 5.5 H (2.5-4.5) mg/dL Total Protein (PEP) 5.2 L (6.2-8.2) g/dL
--- NOTE | 2023-09-04 14:20 | P.PN ---
Subjective Progress Note Date: 09/04/23 Principal diagnosis: Acute on chronic kidney disease with hyperkalemia and acute anion gap metabolic acidosis I was asked to evaluate this patient for possible ICU transfer as the patient is suffering from an acute kidney injury. The patient is 80 years old and he has chronic atrial fibrillation. He also has history of abdominal aortic aneurysm status post endovascular stent graft repair and he has undergone a previous right-sided BKA. He is known also to have CAD, has coronary stents, hypertension hyperlipidemia. He was found by his granddaughter today to be quite confused and this was out of ordinary for the patient. For that reason, the patient was brought into the hospital and the patient was found to be in acute kidney injury. Immediately Schulz catheter was inserted and the patient was started on a bicarb infusion. In summary, the patient's creatinine is at 9.98 with a BUN of 74. Potassium level was at 6.5. Sodium levels at 136. Normal LFTs. UA showed 23 WBCs, 3 RBCs and the troponin was at 0.05 with a normal CPK of 40. White cell count was at 9.7 with a hemoglobin 15.8. Noted the patient's previous creatinines have been mildly elevated as the patient's creatinine from 08/28/2023 was 1.34 and 04/02/2023 the creatinine was at 1.2. His GFR was 59 and 55 respectively consistent with stage III chronic kidney disease. No intake of any nonsteroidal anti-inflammatory medication. No NADYA inhibitor use. No other history is available. Note that the patient was in the hospital approximately 5 months ago and at that time the patient sustained a fall and he developed a pelvic hematoma based on the CAT scan of the abdomen and pelvis that was done at that time. Nevertheless he did not have any endovascular leaks. The CAT scan of the abdomen and pelvis that was done at that time, on 03/27/2023 showed a hematoma in the left pelvis measuring 11 cm in size and mass effect on the bladder. There was trace amount of hemorrhagic fluid within the pelvis. He also had some postsurgical changes in the Ortho by iliac area with endovascular stent grafting and the distal abdominal aortic aneurysm measuring 7.3 cm in size. There was an increase in the proximal abdominal aortic aneurysm in the proximal aspect of the stent and was measuring 5.4 cm. Based on that, a repeat CAT scan of the abdomen was requested in the emergency and the patient was found to have a stable sized abdominal aortic aneurysm with aorto endograft stents placed. 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 There was diverticulosis. There was decrease in the size of the previously described pelvic hematoma. As such, the patient also had a stable hemoglobin. For now, the patient is on bicarb infusion. He was given D50 insulin regarding his hyperkalemia and he was also given 50 mEq of sodium bicarb. Subsequent potassium level dropped down to 5.3. His respiratory status is stable. The patient has no significant difficulties in breathing. No hypotension. No signs of any fluid overload. Patient was reevaluated today on 09/03/2023, patient was actually seen yesterday by Dr. Hall, and he did not feel the patient needed to be admitted to the ICU. Patient presented with acute kidney injury he is known to have history of chronic kidney disease, this time he has worsening kidney picture as well as hyperkalemia, anion gap metabolic acidosis, and the patient was seen by nephrology this morning, he is being considered for renal replacement therapy. Nephrology will arrange for a dialysis catheter placement, and I believe the patient will start on hemodialysis. Patient seems very comfortable on room air O2 sats is 95%, he is hemodynamically stable. WBC count is 10.9 hemoglobin 14.4 basic metabolic profile is normal potassium is down to 5.1 BUN is 84 creatinine 10.02 and the patient is oliguric Reevaluate today on 09/04/2023, patient is now on hemodialysis started yesterday 09/03/2023, urine output remains low, patient is still receiving IV fluids, patient is relatively asymptomatic, no cough no wheezing no shortness of breath. Patient is known to have history of chronic kidney disease stage III AA baseline creatinine ranging between 1.2-1.3. This admission the patient had acute on chronic kidney injury with hypertensive urgency, hyperkalemia, metabolic acidosis, and history of abdominal aortic aneurysm with previous endovascular stent graft repairCBC is relatively normal basic metabolic profile is normal BUN is 64 creatinine down to 7.97 Objective - Vital Signs Vital signs: Vital Signs Temp 98.6 F 09/04/23 09:00 Pulse 86 09/04/23 09:00 Resp 16 09/04/23 09:00 BP 187/97 09/04/23 09:00 Pulse Ox 94 L 09/04/23 09:00 FiO2 Intake & Output 09/03/23 09/04/23 09/04/23 18:59 06:59 18:59 Intake Total 530 128 Output Total 200 650 Balance -200 -120 128 Weight 49.5 kg 49.5 kg Intake: IV 30 10 Invasive Line 1 10 Invasive Line 2 10 Invasive Line 4 10 10 Oral 118 Hemodialysis 500 Output: Urine 200 150 Uretheral (Schulz) 200 Hemodialysis 500 Other: Voiding Method Indwelling Catheter Indwelling Catheter Indwelling Catheter - Exam General: Reveals 78-year-old white male in no distress on room air Skin: Skin is warm and dry and no rashes or lesions are noted. Eye: Pupils are equal, round and reactive to light, extra-ocular movements are intact; there is normal conjunctiva bilaterally. Ears, nose, mouth and throat: There are moist mucous membranes and no oral lesions. Neck: The neck is supple, there is no tenderness or JVD. Cardiovascular: There is a regular rate and rhythm. No murmur, rub or gallop is appreciated. Respiratory: Clear bilaterally no rhonchi no wheezes Gastrointestinal: Soft, non-distended, non-tender abdomen without masses or organomegaly noted. There is no rebound or guarding present. Bowel sounds are unremarkable. Back: There is no tenderness to palpation in the midline. There is no obvious deformity. Musculoskeletal: Right above-knee amputation is noted Neurological: CN II-XII intact, Cranial nerves III through XII are intact. There are no obvious motor or sensory deficits. Coordination appears grossly intact. Speech is normal. Psychiatric: Cooperative, appropriate mood & affect, normal judgment. - Labs CBC & Chem 7: 09/04/23 07:54 09/04/23 07:54 Labs: Abnormal Lab Results - Last 24 Hours (Table) 09/03/23 09/04/23 09/04/23 Range/Units 11:59 07:54 07:54 Plt Count 149 L (150-450) k/uL Neutrophils # 8.0 H (1.3-7.7) k/uL Lymphocytes # 0.5 L (1.0-4.8) k/uL Sodium 134 L (137-145) mmol/L Carbon Dioxide 21 L (22-30) mmol/L BUN 64 H (9-20) mg/dL Creatinine 7.97 H* (0.66-1.25) mg/dL Calcium 7.9 L (8.4-10.2) mg/dL Phosphorus 5.5 H (2.5-4.5) mg/dL Total Protein (PEP) 5.2 L (6.2-8.2) g/dL Assessment and Plan Assessment: Impression: Acute on chronic kidney disease Acute hyperkalemia, treated and potassium level is on decline Acute anion gap metabolic acidosis Pelvic hematoma related to a previous fall, follow-up CAT scan of the abdomen a nd pelvis shows decrease in size of the pelvic hematoma. No anatomic obstruction and there is no hydronephrosis. Altered mental status secondary to metabolic encephalopathy Chronic atrial fibrillation, maintained on long-term anticoagulation with warfarin, rate is controlled for now History of fall with development of pelvic hematoma, hemoglobin is stable and CAT scan of the abdomen pelvis that showed no evidence of any endovascular leak Peripheral vascular disease with previous aorto by iliac stent grafting Abdominal aortic aneurysm, stable COPD, currently inactive and stable Coronary disease with previous coronary stenting Previous above-knee amputation on the right Hypertension Depression/PTSD Remote history of DVT Obstructive sleep apnea Diverticulosis 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 Recommendation: Continue treatment plan as per nephrology and continue hemodialysis Continue to monitor electrolytes and potassium mostly No signs of fluid overload, chest x-ray showed no evidence of congestive heart failure Continue to avoid nephrotoxic agents Will continue to follow Time with Patient: Less than 30
[2023-09-04 14:39] LABS: C-ANCA <1:20 Titer (<1:20)
--- NOTE | 2023-09-04 16:10 | US ---
EXAMINATION TYPE: US renal artery duplex complet DATE OF EXAM: 09/04/2023 COMPARISON: 09/02/2023, 03/26/2023 CLINICAL INDICATION: Male, 78 years old with history of htn; HTN Attempted to do renal artery duplex unable to obtain color doppler wave forms. Patient is in renal failure exam is not diagnostic. Known AAA stent placement in distal Aorta. MEASUREMENTS: RENAL SIZE: Right Kidney: 12.3 x 5.9 x 5.1 cm Left Kidney: 9.3 x 4.0 x 4.3 cm Right Kidney: No hydronephrosis or lesions seen Left Kidney: Anechoic area seen mid pole 3.1 x 2.7 x 2.9 cm. Abd Aorta: Known repair for AAA stent in distal aorta 6.6 cm. IMPRESSION: 1. Limited exam evaluation for renal arteries due to patient body habitus. 2. No evidence for obstructive uropathy. 3. Simple appearing left renal cyst.
[2023-09-04] MEDS: hydrALAZINE HCL 50 MG TAB PO SCH (17:09)
[2023-09-04 17:23] LABS: Albumin 2.89 g/dL (3.80-4.90); Gamma Globulin 0.59 g/dL (0.70-1.50)
[2023-09-04] MEDS ORDERED: HEPARIN SODIUM,PORCINE 5,000 UNIT/ML 1 ML VIAL SQ SCH (21:00)
[2023-09-04] MEDS: APIXABAN 2.5 MG TABLET PO SCH (21:11)
[2023-09-04] MEDS: MELATONIN 5 MG TABLET PO ONE (22:38)
[2023-09-05] MEDS: carvediloL 12.5 MG TAB PO SCH ×2 (09:00→17:16)
[2023-09-05 10:12] LABS: African American GFR (CKD) 11 (>60 ml/min/1.73 sqM); Anion Gap 10 mmol/L; Blood Urea Nitrogen 50 mg/dL (9-20); Carbon Dioxide 22 mmol/L (22-30); Chloride 101 mmol/L (98-107); Glucose 140 mg/dL (74-99); Magnesium 1.9 mg/dL (1.6-2.3); Non-African American GFR(CKD) 9 (>60 ml/min/1.73 sqM); Potassium 4.1 mmol/L (3.5-5.1); Sodium 133 mmol/L (137-145)
--- NOTE | 2023-09-05 11:21 | P.PN ---
Subjective Progress Note Date: 09/05/23 78-year-old man, active smoker, history of A-fib, with significant history of right-sided AKA secondary to peripheral arterial disease, abdominal aortic aneurysm status post graft repair, recent mechanical fall resulting in pelvic hematoma, fractures, aortic graft leak, CAD status post stents, hypertensio n/hyperlipidemia presented for evaluation of confusion. In the emergency room, patient was afebrile, 179 of 124, heart rate 101, 98% on 2 L nasal cannula. CBC was remarkable for mild thrombocytopenia to 135. Basic metabolic panel showed sodium of 136, potassium is 6.5, CO2 of 16, anion gap of 16, BUN of 74, creatinine of 9.98. Liver function test showed bilirubin of 1.4, AST of 16. Troponin is 0.055. UA showed 2+ protein, trace glucose, small blood, trace leukocyte esterase, 23 white blood cells, 29 hyaline casts. Urine tox screen is positive for opiates. Repeat basic metabolic panel showed potassium of 6.1, creatinine of 9.97, CO2 of 14. Patient was initiated on a bicarb drip, and provided shifting agents by the emergency room. Nephrology, pulmonology were consulted. Pulmonology ordered CT of the abdomen/pelvis given patient's previous history of pelvic hematoma and in order to rule out bilateral hydronephrosis, and this was negative for hydronephrosis. Nephrology consulted, recommended HD. Vascular surgery consulted for HD access. Started on HD on 09/02. Plans for HD 09/03. 09/03 Patient was seen and examined. He reports no complaints. CBC Plt 149. BMP Na 134, bicarb 21, BUN 64, Cr 7.97, Ca 7.9. Phos 5.5. Mag 1.9. Nephrology note reviewed, plans for HD today. 09/04 Patient was seen and examined. BP this morning 176/82 HR 110. Metoprolol switched to Coreg 12.5 mg PO BID. BMP Na 133, BUN 50, Cr 5.5, glu 140, Ca 8. Mag 1.9. Trop 0.051. Renal artery duplex suboptimal study, no obstruction. Plans for HD today. General: non toxic, no distress, appears at stated age Derm: warm, dry Head: atraumatic, normocephalic, symmetric Eyes: EOMI, no lid lag, anicteric sclera Mouth: no lip lesion, mucus membranes moist Cardiovascular: S1S2 reg, no murmur Lungs: Clear to auscultation bilateral, no rhonchi, no rales , no accessory muscle use Ext: no gross muscle atrophy, no edema, R AKA : Schulz catheter present Neuro: no focal neuro deficits Psych: Alert, oriented, appropriate affect Based on my assessment of this patient, this patient meets a moderate complexity level of care. Patient has an acute diagnosis of MARIO on CKD with metabolic abnormalities that poses a threat to life or bodily function. MARIO on CKD: Plans for HD today. Phoslo 667 mg PO BID. Nephrology on board. Hypertensive urgency: Renal artery duplex suboptimal. Hydralazine 100 mg PO TID with 10 mg IV Q4H with parameters. Metoprolol switched to Coreg 12.5 mg PO BID. Metabolic acidosis: Expected to resolve with HD. Elevated troponin: Likely troponin leak. Troponin flat. No chest pain. ACS ruled out. CODE STATUS: FULL CODE. DVT Prophylaxis: Heparin SQ GI Prophylaxis: Designated medical POA if patient is not able to make medical decisions for themselves: I have reviewed the following internet marketing consultant notes: Nephrology I have reviewed the results of the following tests: BMP, Mag, Trop. I have ordered the following tests: BMP. I have discussed the care of this patient with the following independent historian: LIZANDRO. I have independently interpreted the following test below: I have discussed the management of this patient with the following physician: Objective - Vital Signs Vital signs: Vital Signs Temp 98.3 F 09/05/23 04:00 Pulse 110 H 09/05/23 04:00 Resp 18 09/05/23 04:00 BP 176/82 09/05/23 04:00 Pulse Ox 92 L 09/05/23 04:00 FiO2 Intake & Output 09/04/23 09/05/23 09/05/23 18:59 06:59 18:59 Intake Total 656 10 Output Total 525 50 Balance 131 -40 Weight 49.5 kg 50.5 kg Intake: IV 20 10 Invasive Line 4 20 10 Oral 236 Hemodialysis 400 Output: Urine 125 50 Hemodialysis 400 Other: Voiding Method Indwelling Catheter Indwelling Catheter # Voids 0 - Labs CBC & Chem 7: 09/04/23 07:54 09/05/23 09:03 Labs: Abnormal Lab Results - Last 24 Hours (Table) 09/03/23 09/04/23 09/04/23 Range/Units 11:59 07:54 07:54 Plt Count 149 L (150-450) k/uL Neutrophils # 8.0 H (1.3-7.7) k/uL Lymphocytes # 0.5 L (1.0-4.8) k/uL Sodium 134 L (137-145) mmol/L Carbon Dioxide 21 L (22-30) mmol/L BUN 64 H (9-20) mg/dL Creatinine 7.97 H* (0.66-1.25) mg/dL Calcium 7.9 L (8.4-10.2) mg/dL Phosphorus 5.5 H (2.5-4.5) mg/dL Albumin (PEP) 2.89 L (3.80-4.90) g/dL [id number] 0.47 H (0.10-0.40) g/dL Beta Globulins 0.51 L (0.60-1.30) g/dL Gamma Globulins 0.59 L (0.70-1.50) g/dL
--- NOTE | 2023-09-05 11:21 | P.PN ---
Subjective Patient is seen in follow-up for acute kidney injury on chronic kidney disease. Started on hemodialysis September 03, 2023. No problems with dialysis yesterday. Urine output remains low. Receiving IV fluids. Vital signs are stable. Blood pressure high. General: No acute distress. HEENT: Head exam is unremarkable. LUNGS: No audible rhonchi or wheezes. HEART: Rate and Rhythm are regular. ABDOMEN: Nontender. EXTREMITITES: Right AKA. Objective - Vital Signs Vital signs: Vital Signs Temp 97.8 F 09/05/23 08:00 Pulse 98 09/05/23 08:00 Resp 16 09/05/23 08:00 BP 163/93 09/05/23 08:00 Pulse Ox 93 L 09/05/23 08:00 FiO2 Intake & Output 09/04/23 09/05/23 09/05/23 18:59 06:59 18:59 Intake Total 656 10 Output Total 525 50 Balance 131 -40 Weight 49.5 kg 50.5 kg Intake: IV 20 10 Invasive Line 4 20 10 Oral 236 Hemodialysis 400 Output: Urine 125 50 Hemodialysis 400 Other: Voiding Method Indwelling Catheter Indwelling Catheter Indwelling Catheter # Voids 0 - Labs CBC & Chem 7: 09/04/23 07:54 09/05/23 09:03 Labs: Abnormal Lab Results - Last 24 Hours (Table) 09/03/23 09/05/23 09/05/23 Range/Units 11:59 09:03 09:03 Sodium 133 L (137-145) mmol/L BUN 50 H (9-20) mg/dL Creatinine 5.50 H (0.66-1.25) mg/dL Glucose 140 H (74-99) mg/dL Calcium 8.0 L (8.4-10.2) mg/dL Troponin I 0.051 H* (0.000-0.034) ng/mL Albumin (PEP) 2.89 L (3.80-4.90) g/dL [id number] 0.47 H (0.10-0.40) g/dL Beta Globulins 0.51 L (0.60-1.30) g/dL Gamma Globulins 0.59 L (0.70-1.50) g/dL Assessment and Plan Plan: Assessment: 1. Acute kidney injury secondary to hemodynamic ATN. Creatinine greater than 10 this admission. Started on hemodialysis September 03, 2023. No hydronephrosis noted on CAT scan/uls. Both kidneys relatively normal in size. 2. Chronic kidney disease stage IIIa with baseline creatinine 1.2-1.3. Suspect nephrosclerosis. 3. Hypertensive urgency. Improved. 4. Hyperkalemia secondary to acute kidney injury, lisinopril and acidosis. Improved with medical management. 5. Metabolic acidosis secondary to acute kidney injury status post bicarb drip. 6. Abdominal aortic aneurysm status post endovascular stent graft repair. 7. Hyperphosphatemia secondary to acute kidney injury. Phosphorus level 5.5 dated September 03, 2023. On PhosLo. Plan: Third treatment of hemodialysis today. Maintain normal saline for now. Encouraged oral intake. Avoid nephrotoxins. Increase dose of Coreg. Maintain as needed IV hydralazine. Monitor for renal recovery. Strict I's and O's. Serologies negative. Lasix 80 mg IV once tonight at 10 PM.
--- NOTE | 2023-09-05 14:30 | P.PN ---
Subjective Progress Note Date: 09/05/23 Principal diagnosis: Acute on chronic kidney disease with hyperkalemia and acute anion gap metabolic acidosis I was asked to evaluate this patient for possible ICU transfer as the patient is suffering from an acute kidney injury. The patient is 80 years old and he has chronic atrial fibrillation. He also has history of abdominal aortic aneurysm status post endovascular stent graft repair and he has undergone a previous right-sided BKA. He is known also to have CAD, has coronary stents, hypertension hyperlipidemia. He was found by his granddaughter today to be quite confused and this was out of ordinary for the patient. For that reason, the patient was brought into the hospital and the patient was found to be in acute kidney injury. Immediately Schulz catheter was inserted and the patient was started on a bicarb infusion. In summary, the patient's creatinine is at 9.98 with a BUN of 74. Potassium level was at 6.5. Sodium levels at 136. Normal LFTs. UA showed 23 WBCs, 3 RBCs and the troponin was at 0.05 with a normal CPK of 40. White cell count was at 9.7 with a hemoglobin 15.8. Noted the patient's previous creatinines have been mildly elevated as the patient's creatinine from 08/28/2023 was 1.34 and 04/02/2023 the creatinine was at 1.2. His GFR was 59 and 55 respectively consistent with stage III chronic kidney disease. No intake of any nonsteroidal anti-inflammatory medication. No NADYA inhibitor use. No other history is available. Note that the patient was in the hospital approximately 5 months ago and at that time the patient sustained a fall and he developed a pelvic hematoma based on the CAT scan of the abdomen and pelvis that was done at that time. Nevertheless he did not have any endovascular leaks. The CAT scan of the abdomen and pelvis that was done at that time, on 03/27/2023 showed a hematoma in the left pelvis measuring 11 cm in size and mass effect on the bladder. There was trace amount of hemorrhagic fluid within the pelvis. He also had some postsurgical changes in the Ortho by iliac area with endovascular stent grafting and the distal abdominal aortic aneurysm measuring 7.3 cm in size. There was an increase in the proximal abdominal aortic aneurysm in the proximal aspect of the stent and was measuring 5.4 cm. Based on that, a repeat CAT scan of the abdomen was requested in the emergency and the patient was found to have a stable sized abdominal aortic aneurysm with aorto endograft stents placed. 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 There was diverticulosis. There was decrease in the size of the previously described pelvic hematoma. As such, the patient also had a stable hemoglobin. For now, the patient is on bicarb infusion. He was given D50 insulin regarding his hyperkalemia and he was also given 50 mEq of sodium bicarb. Subsequent potassium level dropped down to 5.3. His respiratory status is stable. The patient has no significant difficulties in breathing. No hypotension. No signs of any fluid overload. Patient was reevaluated today on 09/03/2023, patient was actually seen yesterday by Dr. Hall, and he did not feel the patient needed to be admitted to the ICU. Patient presented with acute kidney injury he is known to have history of chronic kidney disease, this time he has worsening kidney picture as well as hyperkalemia, anion gap metabolic acidosis, and the patient was seen by nephrology this morning, he is being considered for renal replacement therapy. Nephrology will arrange for a dialysis catheter placement, and I believe the patient will start on hemodialysis. Patient seems very comfortable on room air O2 sats is 95%, he is hemodynamically stable. WBC count is 10.9 hemoglobin 14.4 basic metabolic profile is normal potassium is down to 5.1 BUN is 84 creatinine 10.02 and the patient is oliguric Reevaluate today on 09/04/2023, patient is now on hemodialysis started yesterday 09/03/2023, urine output remains low, patient is still receiving IV fluids, patient is relatively asymptomatic, no cough no wheezing no shortness of breath. Patient is known to have history of chronic kidney disease stage III AA baseline creatinine ranging between 1.2-1.3. This admission the patient had acute on chronic kidney injury with hypertensive urgency, hyperkalemia, metabolic acidosis, and history of abdominal aortic aneurysm with previous endovascular stent graft repairCBC is relatively normal basic metabolic profile is normal BUN is 64 creatinine down to 7.97 Reevaluate today on 09/05/2023, patient remains on hemodialysis, doing well, feeling better, breathing easier, does not seem to be in any distress.On room air O2 sats of 94% blood pressure 142/85. Objective - Vital Signs Vital signs: Vital Signs Temp 98 F 09/05/23 12:00 Pulse 89 09/05/23 12:00 Resp 17 09/05/23 12:00 BP 142/85 09/05/23 12:00 Pulse Ox 94 L 09/05/23 12:00 FiO2 Intake & Output 09/04/23 09/05/23 09/05/23 18:59 06:59 18:59 Intake Total 656 10 180 Output Total 525 50 100 Balance 131 -40 80 Weight 49.5 kg 50.5 kg Intake: IV 20 10 Invasive Line 4 20 10 Oral 236 180 Hemodialysis 400 Output: Urine 125 50 100 Hemodialysis 400 Other: Voiding Method Indwelling Catheter Indwelling Catheter Indwelling Catheter # Voids 0 - Exam General: Reveals 78-year-old white male in no distress on room air Skin: Skin is warm and dry and no rashes or lesions are noted. Eye: Pupils are equal, round and reactive to light, extra-ocular movements are intact; there is normal conjunctiva bilaterally. Ears, nose, mouth and throat: There are moist mucous membranes and no oral lesions. Neck: The neck is supple, there is no tenderness or JVD. Cardiovascular: There is a regular rate and rhythm. No murmur, rub or gallop is appreciated. Respiratory: Clear bilaterally no rhonchi no wheezes Gastrointestinal: Soft, non-distended, non-tender abdomen without masses or organomegaly noted. There is no rebound or guarding present. Bowel sounds are unremarkable. Back: There is no tenderness to palpation in the midline. There is no obvious deformity. Musculoskeletal: Right above-knee amputation is noted Neurological: CN II-XII intact, Cranial nerves III through XII are intact. There are no obvious motor or sensory deficits. Coordination appears grossly in tact. Speech is normal. Psychiatric: Cooperative, appropriate mood & affect, normal judgment. - Labs CBC & Chem 7: 09/04/23 07:54 09/05/23 09:03 Labs: Abnormal Lab Results - Last 24 Hours (Table) 09/03/23 09/05/23 09/05/23 Range/Units 11:59 09:03 09:03 Sodium 133 L (137-145) mmol/L BUN 50 H (9-20) mg/dL Creatinine 5.50 H (0.66-1.25) mg/dL Glucose 140 H (74-99) mg/dL Calcium 8.0 L (8.4-10.2) mg/dL Troponin I 0.051 H* (0.000-0.034) ng/mL Albumin (PEP) 2.89 L (3.80-4.90) g/dL [id number] 0.47 H (0.10-0.40) g/dL Beta Globulins 0.51 L (0.60-1.30) g/dL Gamma Globulins 0.59 L (0.70-1.50) g/dL Assessment and Plan Assessment: Impression: Acute on chronic kidney disease Acute hyperkalemia, treated and potassium level is on decline Acute anion gap metabolic acidosis Pelvic hematoma related to a previous fall, follow-up CAT scan of the abdomen and pelvis shows decrease in size of the pelvic hematoma. No anatomic obstruction and there is no hydronephrosis. Altered mental status secondary to metabolic encephalopathy Chronic atrial fibrillation, maintained on long-term anticoagulation with war farin, rate is controlled for now History of fall with development of pelvic hematoma, hemoglobin is stable and CAT scan of the abdomen pelvis that showed no evidence of any endovascular leak Peripheral vascular disease with previous aorto by iliac stent grafting Abdominal aortic aneurysm, stable COPD, currently inactive and stable Coronary disease with previous coronary stenting Previous above-knee amputation on the right Hypertension Depression/PTSD Remote history of DVT Obstructive sleep apnea Diverticulosis 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 Recommendation: Continue hemodialysis Continue to monitor electrolytes and potassium mostly No active pulmonary symptoms at present Continue to avoid nephrotoxic agents Will continue to follow Time with Patient: Less than 30
[2023-09-05] MEDS: FUROSEMIDE 10 MG/ML 10 ML VIAL IV ONE (21:03)
[2023-09-05] MEDS ORDERED: MELATONIN 5 MG TABLET PO ONE (21:30)
[2023-09-06 07:54] LABS: African American GFR (CKD) 18 (>60 ml/min/1.73 sqM); Anion Gap 8 mmol/L; Blood Urea Nitrogen 31 mg/dL (9-20); Calcium 7.7 mg/dL (8.4-10.2); Carbon Dioxide 24 mmol/L (22-30); Chloride 100 mmol/L (98-107); Glucose 80 mg/dL (74-99); Non-African American GFR(CKD) 15 (>60 ml/min/1.73 sqM); Potassium 4.1 mmol/L (3.5-5.1); Sodium 132 mmol/L (137-145)
--- NOTE | 2023-09-06 11:22 | P.PN ---
Subjective Patient is seen in follow-up for acute kidney injury on chronic kidney disease. Started on hemodialysis September 03, 2023. No problems with dialysis yesterday. Urine output remains low. Receiving IV fluids. Vital signs are stable. Blood pressure high. General: No acute distress. HEENT: Head exam is unremarkable. LUNGS: No audible rhonchi or wheezes. HEART: Rate and Rhythm are regular. ABDOMEN: Nontender. EXTREMITITES: Right AKA. Objective - Vital Signs Vital signs: Vital Signs Temp 98.0 F 09/06/23 08:00 Pulse 87 09/06/23 08:00 Resp 19 09/06/23 08:00 BP 176/94 09/06/23 08:00 Pulse Ox 92 L 09/06/23 08:00 FiO2 Intake & Output 09/05/23 09/06/23 09/06/23 18:59 06:59 18:59 Intake Total 760 Output Total 1000 50 Balance -240 -50 Weight 49 kg Intake: Oral 360 Hemodialysis 400 Output: Urine 100 50 Hemodialysis 900 Other: Voiding Method Indwelling Catheter Indwelling Catheter Indwelling Catheter # Voids 1 - Labs CBC & Chem 7: 09/04/23 07:54 09/06/23 06:10 Labs: Abnormal Lab Results - Last 24 Hours (Table) 09/06/23 Range/Units 06:10 Sodium 132 L (137-145) mmol/L BUN 31 H (9-20) mg/dL Creatinine 3.64 H (0.66-1.25) mg/dL Calcium 7.7 L (8.4-10.2) mg/dL Assessment and Plan Plan: Assessment: 1. Acute kidney injury secondary to hemodynamic ATN. Creatinine greater than 10 this admission. Started on hemodialysis September 03, 2023. No hydronephrosis noted on CAT scan/uls. Both kidneys relatively normal in size. 2. Chronic kidney disease stage IIIa with baseline creatinine 1.2-1.3. Suspect nephrosclerosis. 3. Hypertensive urgency. Improved. 4. Hyperkalemia secondary to acute kidney injury, lisinopril and acidosis. Improved with medical management. 5. Metabolic acidosis secondary to acute kidney injury status post bicarb drip. Improved. 6. Abdominal aortic aneurysm status post endovascular stent graft repair. 7. Hyperphosphatemia secondary to acute kidney injury. Phosphorus level 5.5 dated September 03, 2023. On PhosLo. Plan: Hemodialysis tomorrow. Hep-Lock IV fluids. Encouraged oral intake. Avoid nephrotoxins. Add amlodipine 5 mg once daily. Maintain as needed IV hydralazine. Monitor for renal recovery. Strict I's and O's. Serologies negative. No improvement in urine output despite IV Lasix. Add torsemide 40 mg daily.
--- NOTE | 2023-09-06 15:17 | P.PN ---
Subjective Progress Note Date: 09/06/23 Hospital Course: 78-year-old man, active smoker, history of A-fib, with significant history of right-sided AKA secondary to peripheral arterial disease, abdominal aortic aneurysm status post graft repair, recent mechanical fall resulting in pelvic hematoma, fractures, aortic graft leak, CAD status post stents, hypertension/hyperlipidemia presented for evaluation of confusion. In the emergency room, patient was afebrile, 179 of 124, heart rate 101, 98% on 2 L nasal cannula. CBC was remarkable for mild thrombocytopenia to 135. Basic metabolic panel showed sodium of 136, potassium is 6.5, CO2 of 16, anion gap of 16, BUN of 74, creatinine of 9.98. Liver function test showed bilirubin of 1.4, AST of 16. Troponin is 0.055. UA showed 2+ protein, trace glucose, small blood, trace leukocyte esterase, 23 white blood cells, 29 hyaline casts. Urine tox screen is positive for opiates. Repeat basic metabolic panel showed potassium of 6.1, creatinine of 9.97, CO2 of 14. Patient was initiated on a bicarb drip, and provided shifting agents by the emergency room. Nephrology, pulmonology were consulted. Pulmonology ordered CT of the abdomen/pelvis given patient's previous history of pelvic hematoma and in order to rule out bilateral hydronephrosis, and this was negative for hydronephrosis. Nephrology consulted, recommended HD. Vascular surgery consulted for HD access. Started on HD on 09/02. Plans for HD 09/03. 09/03 Patient was seen and examined. He reports no complaints. CBC Plt 149. BMP Na 134, bicarb 21, BUN 64, Cr 7.97, Ca 7.9. Phos 5.5. Mag 1.9. Nephrology note reviewed, plans for HD today. 09/04 Patient was seen and examined. BP this morning 176/82 HR 110. Metoprolol switched to Coreg 12.5 mg PO BID. BMP Na 133, BUN 50, Cr 5.5, glu 140, Ca 8. Mag 1.9. Trop 0.051. Renal artery duplex suboptimal study, no obstruction. Plans for HD today. Subjective: Patient seen and examined at bedside. No acute events overnight. Sitter at bedside. Has been confused. Pertinent positives and negatives as discussed above, a complete review of systems was performed and all other systems are negative. Vitals Signs Reviewed. General: Nontoxic, no distress, appears at stated age Derm: Warm, dry, dialysis catheter site clean, dry, intact Head: Atraumatic, normocephalic, symmetric Eyes: EOMI, no lid lag, anicteric sclera Mouth: No lip lesion, mucus membranes moist Cardiovascular: S1S2 reg, no murmur Lungs: CTA bilateral, no rhonchi, no rales, no accessory muscle use Abdominal: Soft, nontender to palpation, no guarding, no appreciable organomegaly Ext: Right AKA Neuro: CN II-XI grossly intact, no focal neuro deficits Psych: Alert, oriented x 2, appropriate affect Data Reviewed Today: Pertinent Labs: Sodium 132, creatinine 2.64 Imaging: No new imaging Assessment and Plan: Oliguric MARIO on CKD, now on hemodialysis Hypertensive urgency Metabolic acidosis, resolved NSTEMI, nonischemic Acute metabolic encephalopathy Atrial fibrillation, on digoxin Nephrology note reviewed, dialysis tomorrow, also started on torsemide 40 daily, also on calcium acetate 667 mg twice daily Continue Flomax 0.4 daily On Coreg 25 twice daily and digoxin 125 mcg, Eliquis held by vascular surgery for permanent catheter placement Hydralazine 100 3 times daily PT/OT Delirium precautions DVT ppx: SQ heparin Code status: Full code Anticipated discharge place: Pending clinical course Anticipated discharge time: Pending clinical course Objective - Vital Signs Vital signs: Vital Signs Temp 98.5 F 09/06/23 13:53 Pulse 82 09/06/23 13:53 Resp 18 09/06/23 13:53 BP 178/90 09/06/23 13:53 Pulse Ox 95 09/06/23 13:53 FiO2 Intake & Output 09/05/23 09/06/23 09/06/23 18:59 06:59 18:59 Intake Total 760 Output Total 1000 50 Balance -240 -50 Weight 49 kg Intake: Oral 360 Hemodialysis 400 Output: Urine 100 50 Hemodialysis 900 Other: Voiding Method Indwelling Catheter Indwelling Catheter Indwelling Catheter # Voids 1 - Labs CBC & Chem 7: 09/04/23 07:54 09/06/23 06:10 Labs: Abnormal Lab Results - Last 24 Hours (Table) 09/06/23 Range/Units 06:10 Sodium 132 L (137-145) mmol/L BUN 31 H (9-20) mg/dL Creatinine 3.64 H (0.66-1.25) mg/dL Calcium 7.7 L (8.4-10.2) mg/dL
--- NOTE | 2023-09-06 15:51 | P.PN ---
Subjective Progress Note Date: 09/06/23 I was asked to evaluate this patient for possible ICU transfer as the patient is suffering from an acute kidney injury. The patient is 80 years old and he has chronic atrial fibrillation. He also has history of abdominal aortic aneurysm status post endovascular stent graft repair and he has undergone a previous right-sided BKA. He is known also to have CAD, has coronary stents, hypertension hyperlipidemia. He was found by his granddaughter today to be quite confused and this was out of ordinary for the patient. For that reason, the patient was brought into the hospital and the patient was found to be in acute kidney injury. Immediately Schulz catheter was inserted and the patient was started on a bicarb infusion. In summary, the patient's creatinine is at 9.98 with a BUN of 74. Potassium level was at 6.5. Sodium levels at 136. Normal LFTs. UA showed 23 WBCs, 3 RBCs and the troponin was at 0.05 with a normal CPK of 40. White cell count was at 9.7 with a hemoglobin 15.8. Noted the patient's previous creatinines have been mildly elevated as the patient's creatinine from 08/28/2023 was 1.34 and 04/02/2023 the creatinine was at 1.2. His GFR was 59 and 55 respectively consistent with stage III chronic kidney disease. No intake of any nonsteroidal anti-inflammatory medication. No NADYA inhibitor use. No other history is available. Note that the patient was in the hospital approximately 5 months ago and at that time the patient sustained a fall and he developed a pelvic hematoma based on the CAT scan of the abdomen and pelvis that was done at that time. Nevertheless he did not have any endovascular leaks. The CAT scan of the abdomen and pelvis that was done at that time, on 03/27/2023 showed a hematoma in the left pelvis measuring 11 cm in size and mass effect on the bladder. There was trace amount of hemorrhagic fluid within the pelvis. He also had some postsurgical changes in the Ortho by iliac area with endovascular stent grafting and the distal abdominal aortic aneurysm measuring 7.3 cm in size. There was an increase in the proximal abdominal aortic aneurysm in the proximal aspect of the stent and was measuring 5.4 cm. Based on that, a repeat CAT scan of the abdomen was requested in the emergency and the patient was found to have a stable sized abdominal aortic aneurysm with aorto endograft stents placed. 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 There was diverticulosis. There was decrease in the size of the previously described pelvic hematoma. As such, the patient also had a stable hemoglobin. For now, the patient is on bicarb infusion. He was given D50 insulin regarding his hyperkalemia and he was also given 50 mEq of sodium bicarb. Subsequent potassium level dropped down to 5.3. His respiratory status is stable. The patient has no significant difficulties in breathing. No hypotension. No signs of any fluid overload. Patient was reevaluated today on 09/03/2023, patient was actually seen yesterday by Dr. Hall, and he did not feel the patient needed to be admitted to the ICU. Patient presented with acute kidney injury he is known to have history of chronic kidney disease, this time he has worsening kidney picture as well as hyperkalemia, anion gap metabolic acidosis, and the patient was seen by nephrology this morning, he is being considered for renal replacement therapy. Nephrology will arrange for a dialysis catheter placement, and I believe the patient will start on hemodialysis. Patient seems very comfortable on room air O2 sats is 95%, he is hemodynamically stable. WBC count is 10.9 hemoglobin 14.4 basic metabolic profile is normal potassium is down to 5.1 BUN is 84 creatinine 10.02 and the patient is oliguric Reevaluate today on 09/04/2023, patient is now on hemodialysis started yesterday 09/03/2023, urine output remains low, patient is still receiving IV fluids, patient is relatively asymptomatic, no cough no wheezing no shortness of breath. Patient is known to have history of chronic kidney disease stage III AA baseline creatinine ranging between 1.2-1.3. This admission the patient had acute on chronic kidney injury with hypertensive urgency, hyperkalemia, metabolic acidosis, and history of abdominal aortic aneurysm with previous endovascular stent graft repairCBC is relatively normal basic metabolic profile is normal BUN is 64 creatinine down to 7.97 Reevaluate today on 09/05/2023, patient remains on hemodialysis, doing well, feeling better, breathing easier, does not seem to be in any distress.On room air O2 sats of 94% blood pressure 142/85. The patient is seen today September 06, 2023 in follow-up on the regular medical floor. He is currently awake and alert. He did receive hemodialysis yesterday. He denies any worsening shortness of breath, cough or congestion. He is maintaining good O2 saturation in the 90s on room air. He is afebrile. Hemodyn amically stable. Sodium 132. Potassium 4.1. Bicarb 24. BUN 31. Creatinine 3.64. Glucose 80. He remains on heparin for DVT prophylaxis. Continued on oral diuretics. Objective - Vital Signs Vital signs: Vital Signs Temp 98.5 F 09/06/23 13:53 Pulse 82 09/06/23 13:53 Resp 18 09/06/23 13:53 BP 178/90 09/06/23 13:53 Pulse Ox 95 09/06/23 13:53 FiO2 Intake & Output 09/05/23 09/06/23 09/06/23 18:59 06:59 18:59 Intake Total 760 Output Total 1000 50 Balance -240 -50 Weight 49 kg Intake: Oral 360 Hemodialysis 400 Output: Urine 100 50 Hemodialysis 900 Other: Voiding Method Indwelling Catheter Indwelling Catheter Indwelling Catheter # Voids 1 - Exam General: Reveals awake alert pleasant 78-year-old male in no distress, on room air Skin: Skin is warm and dry and no rashes or lesions are noted. Eye: Pupils are equal, round and reactive to light, extra-ocular movements are intact. Ears, nose, mouth and throat: There are moist mucous membranes and no oral lesions. Neck: The neck is supple, there is no tenderness or JVD. Cardiovascular: There is a regular rate and rhythm. No murmur, rub or gallop is appreciated. Respiratory: Clear bilaterally no rhonchi no wheezes Gastrointestinal: Soft, non-distended, non-tender abdomen without masses or organomegaly noted. Bowel sounds are unremarkable. Back: There is no tenderness to palpation in the midline. There is no obvious deformity. Musculoskeletal: Right above-knee amputation is noted Neurological: CN II-XII intact, Cranial nerves III through XII are intact. There are no obvious motor or sensory deficits. Coordination appears grossly intact. Speech is normal. Psychiatric: Cooperative, appropriate mood & affect, normal judgment. - Labs CBC & Chem 7: 09/04/23 07:54 09/06/23 06:10 Labs: Abnormal Lab Results - Last 24 Hours (Table) 09/06/23 Range/Units 06:10 Sodium 132 L (137-145) mmol/L BUN 31 H (9-20) mg/dL Creatinine 3.64 H (0.66-1.25) mg/dL Calcium 7.7 L (8.4-10.2) mg/dL Assessment and Plan Assessment: Acute on chronic kidney disease Acute hyperkalemia, treated and potassium level is on decline Acute anion gap metabolic acidosis Pelvic hematoma related to a previous fall, follow-up CAT scan of the abdomen and pelvis shows decrease in size of the pelvic hematoma. No anatomic obstruction and there is no hydronephrosis. Altered mental status secondary to metabolic encephalopathy Chronic atrial fibrillation, maintained on long-term anticoagulation with w arfarin, rate is controlled for now History of fall with development of pelvic hematoma, hemoglobin is stable and CAT scan of the abdomen pelvis that showed no evidence of any endovascular leak Peripheral vascular disease with previous aorto by iliac stent grafting Abdominal aortic aneurysm, stable COPD, currently inactive and stable Coronary disease with previous coronary stenting Previous above-knee amputation on the right Hypertension Depression/PTSD Remote history of DVT Obstructive sleep apnea Diverticulosis 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 Plan: The patient was seen and evaluated Labs and medications reviewed Stable and on room air Continue the current treatment plan Continue hemodialysis as scheduled We will continue to follow I have personally seen and examined the patient, performed the documentation and the assessment and plan as written. Number of minutes spent on the visit: 10.
[2023-09-06] MEDS: HEPARIN SODIUM,PORCINE 5,000 UNIT/ML 1 ML VIAL SQ SCH (16:07)
[2023-09-07] MEDS: TORSEMIDE 20 MG TAB PO SCH (08:24)
[2023-09-07 11:22] LABS: BUN/Creat Ratio 9.09 Ratio (12.00-20.00); Blood Urea Nitrogen 41.8 mg/dL (9.0-27.0); Calcium 7.9 mg/dL (8.7-10.3); Carbon Dioxide 25.2 mmol/L (21.6-31.8); Chloride 98 mmol/L (96-109); Glucose 87 mg/dL (70-110); Potassium 4.4 mmol/L (3.5-5.5); Sodium 134 mmol/L (135-145)
--- NOTE | 2023-09-07 12:21 | P.PN ---
Subjective Patient is seen in follow-up for acute kidney injury on chronic kidney disease. Started on hemodialysis September 03, 2023. Tolerating dialysis well. Urine output remains low. Sitter at bedside. Vital signs are stable. General: No acute distress. HEENT: Head exam is unremarkable. LUNGS: No audible rhonchi or wheezes. HEART: Rate and Rhythm are regular. ABDOMEN: Nontender. EXTREMITITES: Right AKA. Objective - Vital Signs Vital signs: Vital Signs Temp 98.7 F 09/07/23 06:58 Pulse 75 09/07/23 08:20 Resp 16 09/07/23 08:20 BP 176/87 09/07/23 06:58 Pulse Ox 94 L 09/07/23 06:58 FiO2 Intake & Output 09/06/23 09/07/23 09/07/23 18:59 06:59 18:59 Output Total 110 75 Balance -110 -75 Weight 49 kg Output: Urine 110 75 Other: Voiding Method Indwelling Catheter Indwelling Catheter - Labs CBC & Chem 7: 09/04/23 07:54 09/07/23 06:28 Labs: Abnormal Lab Results - Last 24 Hours (Table) 09/07/23 Range/Units 06:28 Sodium 134 L (135-145) mmol/L BUN 41.8 H (9.0-27.0) mg/dL Creatinine 4.6 H (0.6-1.5) mg/dL Est GFR (CKD-EPI) 12 L (>=60) BUN/Creatinine Ratio 9.09 L (12.00-20.00) Ratio Calcium 7.9 L (8.7-10.3) mg/dL Assessment and Plan Plan: Assessment: 1. Acute kidney injury secondary to hemodynamic ATN. Creatinine greater than 10 this admission. Started on hemodialysis September 03, 2023. No hydronephrosis noted on CAT scan/uls. Both kidneys relatively normal in size. 2. Chronic kidney disease stage IIIa with baseline creatinine 1.2-1.3. Suspect nephrosclerosis. 3. Hypertensive urgency. Improved. 4. Hyperkalemia secondary to acute kidney injury, lisinopril and acidosis. Improved with medical management and dialysis. 5. Metabolic acidosis secondary to acute kidney injury status post bicarb drip. Improved. 6. Abdominal aortic aneurysm status post endovascular stent graft repair. 7. Hyperphosphatemia secondary to acute kidney injury. Phosphorus level 5.5 dated September 03, 2023. On PhosLo. Plan: Currently seen while undergoing hemodialysis. Plan for next treatment Sunday. Remains off IV fluids. Encouraged oral intake. Avoid nephrotoxins. Add amlodipine 5 mg once daily. Maintain as needed IV hydralazine. Monitor for renal recovery. Strict I's and O's. Serologies negative. No improvement in urine output despite IV Lasix. Maintain torsemide 40 mg daily.
[2023-09-07] MEDS: amLODIPine 5 MG TAB PO SCH (12:48)
--- NOTE | 2023-09-07 13:02 | P.PN ---
Subjective Progress Note Date: 09/07/23 I was asked to evaluate this patient for possible ICU transfer as the patient is suffering from an acute kidney injury. The patient is 80 years old and he has chronic atrial fibrillation. He also has history of abdominal aortic aneurysm status post endovascular stent graft repair and he has undergone a previous right-sided BKA. He is known also to have CAD, has coronary stents, hypertension hyperlipidemia. He was found by his granddaughter today to be quite confused and this was out of ordinary for the patient. For that reason, the patient was brought into the hospital and the patient was found to be in acute kidney injury. Immediately Schulz catheter was inserted and the patient was started on a bicarb infusion. In summary, the patient's creatinine is at 9.98 with a BUN of 74. Potassium level was at 6.5. Sodium levels at 136. Normal LFTs. UA showed 23 WBCs, 3 RBCs and the troponin was at 0.05 with a normal CPK of 40. White cell count was at 9.7 with a hemoglobin 15.8. Noted the patient's previous creatinines have been mildly elevated as the patient's creatinine from 08/28/2023 was 1.34 and 04/02/2023 the creatinine was at 1.2. His GFR was 59 and 55 respectively consistent with stage III chronic kidney disease. No intake of any nonsteroidal anti-inflammatory medication. No NADYA inhibitor use. No other history is available. Note that the patient was in the hospital approximately 5 months ago and at that time the patient sustained a fall and he developed a pelvic hematoma based on the CAT scan of the abdomen and pelvis that was done at that time. Nevertheless he did not have any endovascular leaks. The CAT scan of the abdomen and pelvis that was done at that time, on 03/27/2023 showed a hematoma in the left pelvis measuring 11 cm in size and mass effect on the bladder. There was trace amount of hemorrhagic fluid within the pelvis. He also had some postsurgical changes in the Ortho by iliac area with endovascular stent grafting and the distal abdominal aortic aneurysm measuring 7.3 cm in size. There was an increase in the proximal abdominal aortic aneurysm in the proximal aspect of the stent and was measuring 5.4 cm. Based on that, a repeat CAT scan of the abdomen was requested in the emergency and the patient was found to have a stable sized abdominal aortic aneurysm with aorto endograft stents placed. 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 There was diverticulosis. There was decrease in the size of the previously described pelvic hematoma. As such, the patient also had a stable hemoglobin. For now, the patient is on bicarb infusion. He was given D50 insulin regarding his hyperkalemia and he was also given 50 mEq of sodium bicarb. Subsequent potassium level dropped down to 5.3. His respiratory status is stable. The patient has no significant difficulties in breathing. No hypotension. No signs of any fluid overload. Patient was reevaluated today on 09/03/2023, patient was actually seen yesterday by Dr. Hall, and he did not feel the patient needed to be admitted to the ICU. Patient presented with acute kidney injury he is known to have history of chronic kidney disease, this time he has worsening kidney picture as well as hyperkalemia, anion gap metabolic acidosis, and the patient was seen by nephrology this morning, he is being considered for renal replacement therapy. Nephrology will arrange for a dialysis catheter placement, and I believe the patient will start on hemodialysis. Patient seems very comfortable on room air O2 sats is 95%, he is hemodynamically stable. WBC count is 10.9 hemoglobin 14.4 basic metabolic profile is normal potassium is down to 5.1 BUN is 84 creatinine 10.02 and the patient is oliguric Reevaluate today on 09/04/2023, patient is now on hemodialysis started yesterday 09/03/2023, urine output remains low, patient is still receiving IV fluids, patient is relatively asymptomatic, no cough no wheezing no shortness of breath. Patient is known to have history of chronic kidney disease stage III AA baseline creatinine ranging between 1.2-1.3. This admission the patient had acute on chronic kidney injury with hypertensive urgency, hyperkalemia, metabolic acidosis, and history of abdominal aortic aneurysm with previous endovascular stent graft repairCBC is relatively normal basic metabolic profile is normal BUN is 64 creatinine down to 7.97 Reevaluate today on 09/05/2023, patient remains on hemodialysis, doing well, feeling better, breathing easier, does not seem to be in any distress.On room air O2 sats of 94% blood pressure 142/85. The patient is seen today September 06, 2023 in follow-up on the regular medical floor. He is currently awake and alert. He did receive hemodialysis yesterday. He denies any worsening shortness of breath, cough or congestion. He is maintaining good O2 saturation in the 90s on room air. He is afebrile. Hemodyn amically stable. Sodium 132. Potassium 4.1. Bicarb 24. BUN 31. Creatinine 3.64. Glucose 80. He remains on heparin for DVT prophylaxis. Continued on oral diuretics. The patient is seen today September 07, 2023 in follow-up on the regular medical floor. He is presently resting comfortably in bed. Awake and alert in no acute distress. Currently receiving hemodialysis. He is maintaining good O2 saturation in the 90s on room air. Remains on heparin for DVT prophylaxis. Sodium 134. Potassium 4.4. Bicarb 25. BUN 2. Creatinine 4.6. Glucose 87. Objective - Vital Signs Vital signs: Vital Signs Temp 97.7 F 09/07/23 12:20 Pulse 72 09/07/23 12:20 Resp 18 09/07/23 12:20 BP 189/106 09/07/23 12:20 Pulse Ox 94 L 09/07/23 06:58 FiO2 Intake & Output 09/06/23 09/07/23 09/07/23 18:59 06:59 18:59 Intake Total 500 Output Total 163 41 2515 Balance - Weight 49 kg Intake: Hemodialysis 500 Output: Urine 110 75 Hemodialysis 1500 Other: Voiding Method Indwelling Catheter Indwelling Catheter - Exam GENERAL EXAM: Alert, pleasant 78-year-old male patient, on room air, comfortable in no apparent distress. HEAD: Normocephalic. EYES: Normal reaction of pupils, equal size. NOSE: Clear with pink turbinates. THROAT: No erythema or exudates. NECK: No masses, no JVD. Right IJ temporary hemodialysis catheter in place. CHEST: No chest wall deformity. LUNGS: Equal air entry with no crackles, wheeze, rhonchi or dullness. CVS: S1 and S2 normal with no audible murmur, regular rhythm. ABDOMEN: No hepatosplenomegaly, normal bowel sounds, no guarding or rigidity. SPINE: No scoliosis or deformity SKIN: No rashes CENTRAL NERVOUS SYSTEM: No focal deficits, tone is normal in all 4 extremities. EXTREMITIES: There is no peripheral edema. No clubbing, no cyanosis. Peripheral pulses are intact. - Labs CBC & Chem 7: 09/04/23 07:54 09/07/23 06:28 Labs: Abnormal Lab Results - Last 24 Hours (Table) 09/07/23 Range/Units 06:28 Sodium 134 L (135-145) mmol/L BUN 41.8 H (9.0-27.0) mg/dL Creatinine 4.6 H (0.6-1.5) mg/dL Est GFR (CKD-EPI) 12 L (>=60) BUN/Creatinine Ratio 9.09 L (12.00-20.00) Ratio Calcium 7.9 L (8.7-10.3) mg/dL Assessment and Plan Assessment: Acute on chronic kidney disease, initiated on hemodialysis September 03, 2023 Acute hyperkalemia, recovered Acute anion gap metabolic acidosis, recovered Pelvic hematoma related to a previous fall, follow-up CAT scan of the abdomen and pelvis shows decrease in size of the pelvic hematoma. No anatomic obstruction and there is no hydronephrosis. Altered mental status secondary to metabolic encephalopathy, improved Chronic atrial fibrillation, maintained on long-term anticoagulation with warfarin, rate is controlled for now History of fall with development of pelvic hematoma, hemoglobin is stable and CAT scan of the abdomen pelvis that showed no evidence of any endovascular leak Peripheral vascular disease with previous aorto by iliac stent grafting Abdominal aortic aneurysm, stable COPD, currently inactive and stable Coronary disease with previous coronary stenting Previous above-knee amputation on the right Hypertension Depression/PTSD Remote history of DVT Obstructive sleep apnea Diverticulosis 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 Plan: The patient was seen and evaluated Labs and medications reviewed Stable and on room air Continue the current treatment plan Continue hemodialysis as scheduled Discharge planning in place for finding outpatient hemodialysis This patient was seen independently by the pulmonary nurse practitioner addressing pulmonary issues I have personally seen and examined the patient, performed the documentation and the assessment and plan as written. Number of minutes spent on the visit: 25.
[2023-09-07] MEDS: LIDOCAINE 1% INJ 10MG/ML (30 ML VIAL-PF) SQ ONE ×2 (13:30→13:33)
[2023-09-07] MEDS: MIDAZOLAM 2 MG/2 ML VIAL IVP ONE (13:33)
--- NOTE | 2023-09-07 14:11 | IR ---
EXAMINATION TYPE: IR cvc insert central tunneled DATE OF EXAM: 09/07/2023 COMPARISON: NONE HISTORY: Fluoroscopy time. Fluoroscopy was provided to the referring clinician.
--- NOTE | 2023-09-07 14:51 | P.PN ---
Subjective Progress Note Date: 09/07/23 Hospital Course: 78-year-old man, active smoker, history of A-fib, with significant history of right-sided AKA secondary to peripheral arterial disease, abdominal aortic aneurysm status post graft repair, recent mechanical fall resulting in pelvic hematoma, fractures, aortic graft leak, CAD status post stents, hypertension/hyperlipidemia presented for evaluation of confusion. In the emergency room, patient was afebrile, 179 of 124, heart rate 101, 98% on 2 L nasal cannula. CBC was remarkable for mild thrombocytopenia to 135. Basic metabolic panel showed sodium of 136, potassium is 6.5, CO2 of 16, anion gap of 16, BUN of 74, creatinine of 9.98. Liver function test showed bilirubin of 1.4, AST of 16. Troponin is 0.055. UA showed 2+ protein, trace glucose, small blood, trace leukocyte esterase, 23 white blood cells, 29 hyaline casts. Urine tox screen is positive for opiates. Repeat basic metabolic panel showed potassium of 6.1, creatinine of 9.97, CO2 of 14. Patient was initiated on a bicarb drip, and provided shifting agents by the emergency room. Nephrology, pulmonology were consulted. Pulmonology ordered CT of the abdomen/pelvis given patient's previous history of pelvic hematoma and in order to rule out bilateral hydronephrosis, and this was negative for hydronephrosis. Nephrology consulted, recommended HD. Vascular surgery consulted for HD access. Started on HD on 09/02. Plans for HD 09/03. 09/03 Patient was seen and examined. He reports no complaints. CBC Plt 149. BMP Na 134, bicarb 21, BUN 64, Cr 7.97, Ca 7.9. Phos 5.5. Mag 1.9. Nephrology note reviewed, plans for HD today. 09/04 Patient was seen and examined. BP this morning 176/82 HR 110. Metoprolol switched to Coreg 12.5 mg PO BID. BMP Na 133, BUN 50, Cr 5.5, glu 140, Ca 8. Mag 1.9. Trop 0.051. Renal artery duplex suboptimal study, no obstruction. Plans for HD today. Subjective: Patient seen and examined at bedside. No acute events overnight. Sitter at bedside. Pertinent positives and negatives as discussed above, a complete review of systems was performed and all other systems are negative. Vitals Signs Reviewed. General: Nontoxic, no distress, appears at stated age Derm: Warm, dry, dialysis catheter site clean, dry, intact Head: Atraumatic, normocephalic, symmetric Eyes: EOMI, no lid lag, anicteric sclera Mouth: No lip lesion, mucus membranes moist Cardiovascular: S1S2 reg, no murmur Lungs: CTA bilateral, no rhonchi, no rales, no accessory muscle use Abdominal: Soft, nontender to palpation, no guarding, no appreciable organomegaly Ext: Right AKA Neuro: CN II-XI grossly intact, no focal neuro deficits Psych: Alert, oriented x 2, appropriate affect Data Reviewed Today: Pertinent Labs: Sodium 134, creatinine 4.6, magnesium 2 Imaging: No new imaging Assessment and Plan: Oliguric MARIO on CKD, now on hemodialysis Hypertensive urgency Metabolic acidosis, resolved NSTEMI, nonischemic Acute metabolic encephalopathy Atrial fibrillation, on digoxin - Nephrology note reviewed, next dialysis on Sunday, also started on torsemide 40 daily, also on calcium acetate 667 mg twice daily - Continue Flomax 0.4 daily - On Coreg 25 twice daily and digoxin 125 mcg, Eliquis held by vascular surgery for permanent catheter placement, restart after catheter placed - Hydralazine 100 3 times daily - PT/OT - Delirium precautions -Sitter at bedside -Pulmonology note reviewed, okay to be discharged from their standpoint DVT ppx: SQ heparin Code status: DNR/DNI Anticipated discharge place: Awaiting outpatient dialysis chair time Anticipated discharge time: Pending clinical course Objective - Vital Signs Vital signs: Vital Signs Temp 97.7 F 09/07/23 12:20 Pulse 72 09/07/23 12:20 Resp 18 09/07/23 12:20 BP 189/106 09/07/23 12:20 Pulse Ox 94 L 09/07/23 06:58 FiO2 Intake & Output 09/06/23 09/07/23 09/07/23 18:59 06:59 18:59 Intake Total 550 Output Total 696 36 2496 Balance -110 -75 -950 Weight 49 kg 49 kg Intake: IV 50 Hemodialysis 500 Output: Urine 110 75 Hemodialysis 1500 Other: Voiding Method Indwelling Catheter Indwelling Catheter - Labs CBC & Chem 7: 09/04/23 07:54 09/07/23 06:28 Labs: Abnormal Lab Results - Last 24 Hours (Table) 09/07/23 Range/Units 06:28 Sodium 134 L (135-145) mmol/L BUN 41.8 H (9.0-27.0) mg/dL Creatinine 4.6 H (0.6-1.5) mg/dL Est GFR (CKD-EPI) 12 L (>=60) BUN/Creatinine Ratio 9.09 L (12.00-20.00) Ratio Calcium 7.9 L (8.7-10.3) mg/dL
--- NOTE | 2023-09-07 15:48 | XR ---
EXAMINATION TYPE: XR chest 1V confirm line [facility] DATE OF EXAM: 09/07/2023 COMPARISON: 09/03/2023 HISTORY: Hemodialysis catheter TECHNIQUE: Single frontal view of the chest is obtained. FINDINGS: Right-sided hemodialysis catheter the tip overlying the caval atrial junction. No pneumoth orax. There is bibasilar atelectasis and tiny effusion. Correlate for mild venous congestion. Heart i s enlarged. Atherosclerotic change of the aorta. Degenerative change of the spine. Diffuse osteopenia and shoulder arthropathy. Metallic densities overlying the right hemithorax stable likely related to chronic foreign body. IMPRESSION: 1. Hemodialysis catheter with the tip overlying the cavoatrial junction. No pneumothorax. 2. Small bilateral effusion correlate for mild venous congestion.
--- NOTE | 2023-09-07 20:15 | OP ---
OPERATIVE REPORT DATE OF SERVICE : PREOPERATIVE DIAGNOSIS: Acute on chronic renal failure. POSTOPERATIVE DIAGNOSIS: Acute on chronic renal failure. PROCEDURE PERFORMED: Placement of a 19 cm dialysis catheter, right jugular approach. DESCRIPTION OF PROCEDURE: This patient had a temporary dialysis catheter right IJ in the past. Right side of the neck and chest were prepped and drapes applied in a sterile manner. 1% lidocaine infiltrated in the neck area. A tunnel was created. Through the tunnel, we brought a 19 cm dialysis catheter. The guidewire was passed, parked in the inferior vena cava. Then, the dilator was advanced on top of the guidewire. Then, sheath was advanced, flushed with heparin saline and hep-locked, secured with 3-0 nylon. Dressing applied. The patient tolerated the procedure well. MMCASSIDY / ALISAN: [id number] /
[2023-09-08 08:02] LABS: African American GFR (CKD) 21 (>60 ml/min/1.73 sqM); Anion Gap 3 mmol/L; Blood Urea Nitrogen 37 mg/dL (9-20); Calcium 7.7 mg/dL (8.4-10.2); Carbon Dioxide 27 mmol/L (22-30); Chloride 98 mmol/L (98-107); Glucose 104 mg/dL (74-99); Magnesium 1.9 mg/dL (1.6-2.3); Non-African American GFR(CKD) 18 (>60 ml/min/1.73 sqM); Potassium 4.2 mmol/L (3.5-5.1); Sodium 128 mmol/L (137-145)
[2023-09-08] MEDS: amLODIPine 10 MG TAB PO SCH (08:54)
--- NOTE | 2023-09-08 10:57 | P.PN ---
Subjective Progress Note Date: 09/08/23 78-year-old man, active smoker, history of A-fib, with significant history of right-sided AKA secondary to peripheral arterial disease, abdominal aortic aneurysm status post graft repair, recent mechanical fall resulting in pelvic hematoma, fractures, aortic graft leak, CAD status post stents, hypertensio n/hyperlipidemia presented for evaluation of confusion. In the emergency room, patient was afebrile, 179 of 124, heart rate 101, 98% on 2 L nasal cannula. CBC was remarkable for mild thrombocytopenia to 135. Basic metabolic panel showed sodium of 136, potassium is 6.5, CO2 of 16, anion gap of 16, BUN of 74, creatinine of 9.98. Liver function test showed bilirubin of 1.4, AST of 16. Troponin is 0.055. UA showed 2+ protein, trace glucose, small blood, trace leukocyte esterase, 23 white blood cells, 29 hyaline casts. Urine tox screen is positive for opiates. Repeat basic metabolic panel showed potassium of 6.1, creatinine of 9.97, CO2 of 14. Patient was initiated on a bicarb drip, and provided shifting agents by the emergency room. Nephrology, pulmonology were consulted. Pulmonology ordered CT of the abdomen/pelvis given patient's previous history of pelvic hematoma and in order to rule out bilateral hydronephrosis, and this was negative for hydronephrosis. Nephrology consulted, recommended HD. Vascular surgery consulted for HD access. Started on HD on 09/02, 09/03, 09/04, 09/06. Metoprolol switched to Coreg and titrated for better BP control. Hydralazine scheduled PO and PRN IV, Amlodipine added by Nephrology. 09/07 Patient was seen and examined. Sleeping comfortably. Sitter at bedside. Nephrology recommends HD on Sunday. BP this morning 181/89. Case management on board to set up HD in the outpatient setting. Patient does not qualify for SNF but may require assistance with making it to dialysis. BMP Na 128, BUN 37, Cr 3.18, glu 104, Ca 7.7. Mag 1.9. General: non toxic, no distress, appears at stated age Derm: warm, dry Head: atraumatic, normocephalic, symmetric Eyes: EOMI, no lid lag, anicteric sclera Mouth: no lip lesion, mucus membranes moist Cardiovascular: Good distal perfusion in all 4 extremities Lungs: Breathing comfortably, no accessory muscle use Ext: no gross muscle atrophy, no edema, R AKA Psych: Alert, oriented, appropriate affect Based on my assessment of this patient, this patient meets a moderate complexity level of care. Patient has an acute diagnosis of MARIO on CKD with metabolic abnormalities that poses a threat to life or bodily function. MARIO on CKD: Next HD on Sunday. Phoslo 667 mg PO BID. Nephrology on board. Hypertensive urgency: Renal artery duplex suboptimal. Hydralazine 100 mg PO TID with 10 mg IV Q4H with parameters. Coreg 25 mg PO BID. Increased amlodipine to 10 mg PO BID. Metabolic acidosis: Expected to resolve with HD. Elevated troponin: Likely troponin leak. Troponin flat. No chest pain. ACS ruled out. CODE STATUS: FULL CODE. DVT Prophylaxis: Heparin SQ GI Prophylaxis: Designated medical POA if patient is not able to make medical decisions for themselves: I have reviewed the following direct response consultant notes: Nephrology I have reviewed the results of the following tests: BMP. [facility] I have ordered the following tests: BMP. I have discussed the care of this patient with the following independent historian: LIZANDRO I have independently interpreted the following test below: I have discussed the management of this patient with the following physician: Objective - Vital Signs Vital signs: Vital Signs Temp 98.1 F 09/08/23 02:00 Pulse 78 09/08/23 02:00 Resp 16 09/08/23 02:00 BP 181/89 09/08/23 02:00 Pulse Ox 91 L 09/08/23 02:00 FiO2 Intake & Output 09/07/23 09/08/23 09/08/23 18:59 06:59 18:59 Intake Total 550 Output Total 1500 10 Balance -950 -10 Weight 49 kg 48.5 kg Intake: IV 50 Hemodialysis 500 Output: Urine 0 10 Hemodialysis 1500 Other: Voiding Method Indwelling Catheter Indwelling Catheter # Voids 0 # Bowel Movements 0 - Labs CBC & Chem 7: 09/04/23 07:54 09/08/23 07:22 Labs: Abnormal Lab Results - Last 24 Hours (Table) 09/07/23 Range/Units 06:28 Sodium 134 L (135-145) mmol/L BUN 41.8 H (9.0-27.0) mg/dL Creatinine 4.6 H (0.6-1.5) mg/dL Est GFR (CKD-EPI) 12 L (>=60) BUN/Creatinine Ratio 9.09 L (12.00-20.00) Ratio Calcium 7.9 L (8.7-10.3) mg/dL
--- NOTE | 2023-09-08 11:41 | P.PN ---
Subjective Progress Note Date: 09/08/23 I was asked to evaluate this patient for possible ICU transfer as the patient is suffering from an acute kidney injury. The patient is 80 years old and he has chronic atrial fibrillation. He also has history of abdominal aortic aneurysm status post endovascular stent graft repair and he has undergone a previous right-sided BKA. He is known also to have CAD, has coronary stents, hypertension hyperlipidemia. He was found by his granddaughter today to be quite confused and this was out of ordinary for the patient. For that reason, the patient was brought into the hospital and the patient was found to be in acute kidney injury. Immediately Schulz catheter was inserted and the patient was started on a bicarb infusion. In summary, the patient's creatinine is at 9.98 with a BUN of 74. Potassium level was at 6.5. Sodium levels at 136. Normal LFTs. UA showed 23 WBCs, 3 RBCs and the troponin was at 0.05 with a normal CPK of 40. White cell count was at 9.7 with a hemoglobin 15.8. Noted the patient's previous creatinines have been mildly elevated as the patient's creatinine from 08/28/2023 was 1.34 and 04/02/2023 the creatinine was at 1.2. His GFR was 59 and 55 respectively consistent with stage III chronic kidney disease. No intake of any nonsteroidal anti-inflammatory medication. No NADYA inhibitor use. No other history is available. Note that the patient was in the hospital approximately 5 months ago and at that time the patient sustained a fall and he developed a pelvic hematoma based on the CAT scan of the abdomen and pelvis that was done at that time. Nevertheless he did not have any endovascular leaks. The CAT scan of the abdomen and pelvis that was done at that time, on 03/27/2023 showed a hematoma in the left pelvis measuring 11 cm in size and mass effect on the bladder. There was trace amount of hemorrhagic fluid within the pelvis. He also had some postsurgical changes in the Ortho by iliac area with endovascular stent grafting and the distal abdominal aortic aneurysm measuring 7.3 cm in size. There was an increase in the proximal abdominal aortic aneurysm in the proximal aspect of the stent and was measuring 5.4 cm. Based on that, a repeat CAT scan of the abdomen was requested in the emergency and the patient was found to have a stable sized abdominal aortic aneurysm with aorto endograft stents placed. 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 There was diverticulosis. There was decrease in the size of the previously described pelvic hematoma. As such, the patient also had a stable hemoglobin. For now, the patient is on bicarb infusion. He was given D50 insulin regarding his hyperkalemia and he was also given 50 mEq of sodium bicarb. Subsequent potassium level dropped down to 5.3. His respiratory status is stable. The patient has no significant difficulties in breathing. No hypotension. No signs of any fluid overload. Patient was reevaluated today on 09/03/2023, patient was actually seen yesterday by Dr. Hall, and he did not feel the patient needed to be admitted to the ICU. Patient presented with acute kidney injury he is known to have history of chronic kidney disease, this time he has worsening kidney picture as well as hyperkalemia, anion gap metabolic acidosis, and the patient was seen by nephrology this morning, he is being considered for renal replacement therapy. Nephrology will arrange for a dialysis catheter placement, and I believe the patient will start on hemodialysis. Patient seems very comfortable on room air O2 sats is 95%, he is hemodynamically stable. WBC count is 10.9 hemoglobin 14.4 basic metabolic profile is normal potassium is down to 5.1 BUN is 84 creatinine 10.02 and the patient is oliguric Reevaluate today on 09/04/2023, patient is now on hemodialysis started yesterday 09/03/2023, urine output remains low, patient is still receiving IV fluids, patient is relatively asymptomatic, no cough no wheezing no shortness of breath. Patient is known to have history of chronic kidney disease stage III AA baseline creatinine ranging between 1.2-1.3. This admission the patient had acute on chronic kidney injury with hypertensive urgency, hyperkalemia, metabolic acidosis, and history of abdominal aortic aneurysm with previous endovascular stent graft repairCBC is relatively normal basic metabolic profile is normal BUN is 64 creatinine down to 7.97 Reevaluate today on 09/05/2023, patient remains on hemodialysis, doing well, feeling better, breathing easier, does not seem to be in any distress.On room air O2 sats of 94% blood pressure 142/85. The patient is seen today September 06, 2023 in follow-up on the regular medical floor. He is currently awake and alert. He did receive hemodialysis yesterday. He denies any worsening shortness of breath, cough or congestion. He is maintaining good O2 saturation in the 90s on room air. He is afebrile. Hemodyn amically stable. Sodium 132. Potassium 4.1. Bicarb 24. BUN 31. Creatinine 3.64. Glucose 80. He remains on heparin for DVT prophylaxis. Continued on oral diuretics. The patient is seen today September 07, 2023 in follow-up on the regular medical floor. He is presently resting comfortably in bed. Awake and alert in no acute distress. Currently receiving hemodialysis. He is maintaining good O2 saturation in the 90s on room air. Remains on heparin for DVT prophylaxis. Sodium 134. Potassium 4.4. Bicarb 25. BUN 2041. Creatinine 4.6. Glucose 87. The patient is seen today September 08, 2023 in follow-up on the regular medical floor. He is resting comfortably in bed. Awake and alert in no acute distress. No plans for hemodialysis today. He denies any shortness of breath, cough or c ongestion. He is maintaining good O2 saturations in the 90s on room air. He is afebrile. Hemodynamically stable. Sodium 128. Potassium 4.2. Bicarb 27. BUN 37. Creatinine 3.18. Glucose 104. Continued on heparin for DVT prophylaxis. Remains on oral diuretics. Objective - Vital Signs Vital signs: Vital Signs Temp 98.1 F 09/08/23 02:00 Pulse 77 09/08/23 07:08 Resp 18 09/08/23 07:08 BP 157/81 09/08/23 08:57 Pulse Ox 94 L 09/08/23 07:08 FiO2 Intake & Output 09/07/23 09/08/23 09/08/23 18:59 06:59 18:59 Intake Total 550 Output Total 1500 10 Balance -950 -10 Weight 49 kg 48.5 kg Intake: IV 50 Hemodialysis 500 Output: Urine 0 10 Hemodialysis 1500 Other: Voiding Method Indwelling Catheter Indwelling Catheter Indwelling Catheter # Voids 0 # Bowel Movements 0 - Exam GENERAL EXAM: Alert, 78-year-old male patient, on room air, in no apparent distress. HEAD: Normocephalic. EYES: Normal reaction of pupils, equal size. NOSE: Clear with pink turbinates. THROAT: No erythema or exudates. NECK: No masses, no JVD. Right IJ permacath in place. CHEST: No chest wall deformity. LUNGS: Equal air entry with no crackles, wheeze, rhonchi or dullness. CVS: S1 and S2 normal with no audible murmur, regular rhythm. ABDOMEN: No hepatosplenomegaly, normal bowel sounds, no guarding or rigidity. SPINE: No scoliosis or deformity SKIN: No rashes CENTRAL NERVOUS SYSTEM: No focal deficits, tone is normal in all 4 extremities. EXTREMITIES: There is no peripheral edema. No clubbing, no cyanosis. Nahomy pheral pulses are intact. - Labs CBC & Chem 7: 09/04/23 07:54 09/08/23 07:22 Labs: Abnormal Lab Results - Last 24 Hours (Table) 09/08/23 Range/Units 07:22 Sodium 128 L (137-145) mmol/L BUN 37 H (9-20) mg/dL Creatinine 3.18 H (0.66-1.25) mg/dL Glucose 104 H (74-99) mg/dL Calcium 7.7 L (8.4-10.2) mg/dL Assessment and Plan Assessment: Acute on chronic kidney disease, initiated on hemodialysis September 03, 2023 Acute hyperkalemia, recovered Acute anion gap metabolic acidosis, recovered Pelvic hematoma related to a previous fall, follow-up CAT scan of the abdomen and pelvis shows decrease in size of the pelvic hematoma. No anatomic obstruction and there is no hydronephrosis. Altered mental status secondary to metabolic encephalopathy, improved Chronic atrial fibrillation, maintained on long-term anticoagulation with warfarin, rate is controlled for now History of fall with development of pelvic hematoma, hemoglobin is stable and CAT scan of the abdomen pelvis that showed no evidence of any endovascular leak Peripheral vascular disease with previous aorto by iliac stent grafting Abdominal aortic aneurysm, stable COPD, currently inactive and stable Coronary disease with previous coronary stenting Previous above-knee amputation on the right Hypertension Depression/PTSD Remote history of DVT Obstructive sleep apnea Diverticulosis 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 Plan: The patient was seen and evaluated Labs and medications reviewed Stable and on room air Jorge on oral diuretics Heparin for DVT prophylaxis Permacath placed yesterday Discharge once outpatient hemodialysis center and transportation are decided This patient was seen independently by the pulmonary nurse practitioner addressing pulmonary issues I have personally seen and examined the patient, performed the documentation and the assessment and plan as written. Number of minutes spent on the visit: 35.
--- NOTE | 2023-09-08 12:32 | P.PN ---
Subjective patient is seen for follow-up for acute kidney injury and chronic kidney disease. Started on hemodialysis on 09/03/2023 No significant complaints today. urine output remains low. Objective - Vital Signs Vital signs: Vital Signs Temp 98.1 F 09/08/23 02:00 Pulse 77 09/08/23 07:08 Resp 18 09/08/23 07:08 BP 157/81 09/08/23 08:57 Pulse Ox 94 L 09/08/23 07:08 FiO2 Intake & Output 09/07/23 09/08/23 09/08/23 18:59 06:59 18:59 Intake Total 550 Output Total 1500 10 Balance -950 -10 Weight 49 kg 48.5 kg Intake: IV 50 Hemodialysis 500 Output: Urine 0 10 Hemodialysis 1500 Other: Voiding Method Indwelling Catheter Indwelling Catheter Indwelling Catheter # Voids 0 # Bowel Movements 0 - Exam patient is awake, comfortable, no acute distress Examination of the heart S1 and S2 Examination of the lungs bilateral breath sounds are heard Abdomen is soft nontender Examination of lower extremities shows no significant edema NIGHT CLUB MANAGER exam shows patient is moving all 4 extremities. - Labs CBC & Chem 7: 09/04/23 07:54 09/08/23 07:22 Labs: Abnormal Lab Results - Last 24 Hours (Table) 09/08/23 Range/Units 07:22 Sodium 128 L (137-145) mmol/L BUN 37 H (9-20) mg/dL Creatinine 3.18 H (0.66-1.25) mg/dL Glucose 104 H (74-99) mg/dL Calcium 7.7 L (8.4-10.2) mg/dL Assessment and Plan Assessment: 1. Acute kidney injury secondary to hemodynamic ATN. Creatinine greater than 10 this admission. Started on hemodialysis September 03, 2023. No hydronephrosis noted on CAT scan/uls. Both kidneys relatively normal in size. 2. Chronic kidney disease stage IIIa with baseline creatinine 1.2-1.3. Suspect nephrosclerosis. 3. Hypertensive urgency. Improved. 4. Hyperkalemia secondary to acute kidney injury, lisinopril and acidosis. Improved with medical management and dialysis. 5. Metabolic acidosis secondary to acute kidney injury status post bicarb drip. Improved. 6. Abdominal aortic aneurysm status post endovascular stent graft repair. 7. Hyperphosphatemia secondary to acute kidney injury. Phosphorus level 5.5 dated September 03, 2023. On PhosLo. Plan: continue with hemodialysis. next treatment on Sunday. Patient will need to continue as outpatient as well. Urine output remains low. continue PhosLo Continue Demadex
[2023-09-09 06:51] LABS: African American GFR (CKD) 14 (>60 ml/min/1.73 sqM); Anion Gap 8 mmol/L; Blood Urea Nitrogen 50 mg/dL (9-20); Calcium 7.6 mg/dL (8.4-10.2); Carbon Dioxide 23 mmol/L (22-30); Chloride 97 mmol/L (98-107); Glucose 80 mg/dL (74-99); Non-African American GFR(CKD) 12 (>60 ml/min/1.73 sqM); Potassium 4.3 mmol/L (3.5-5.1); Sodium 128 mmol/L (137-145)
--- NOTE | 2023-09-09 10:26 | P.PN ---
Subjective Progress Note Date: 09/09/23 78-year-old man, active smoker, history of A-fib, with significant history of right-sided AKA secondary to peripheral arterial disease, abdominal aortic aneurysm status post graft repair, recent mechanical fall resulting in pelvic hematoma, fractures, aortic graft leak, CAD status post stents, hypertensio n/hyperlipidemia presented for evaluation of confusion. In the emergency room, patient was afebrile, 179 of 124, heart rate 101, 98% on 2 L nasal cannula. CBC was remarkable for mild thrombocytopenia to 135. Basic metabolic panel showed sodium of 136, potassium is 6.5, CO2 of 16, anion gap of 16, BUN of 74, creatinine of 9.98. Liver function test showed bilirubin of 1.4, AST of 16. Troponin is 0.055. UA showed 2+ protein, trace glucose, small blood, trace leukocyte esterase, 23 white blood cells, 29 hyaline casts. Urine tox screen is positive for opiates. Repeat basic metabolic panel showed potassium of 6.1, creatinine of 9.97, CO2 of 14. Patient was initiated on a bicarb drip, and provided shifting agents by the emergency room. Nephrology, pulmonology were consulted. Pulmonology ordered CT of the abdomen/pelvis given patient's previous history of pelvic hematoma and in order to rule out bilateral hydronephrosis, and this was negative for hydronephrosis. Nephrology consulted, recommended HD. Vascular surgery consulted for HD access. Started on HD on 09/02, 09/03, 09/04, 09/06. Metoprolol switched to Coreg and titrated for better BP control. Hydralazine scheduled PO and PRN IV, Amlodipine added by Nephrology. 09/07 Patient was seen and examined. Sleeping comfortably. Sitter at bedside. Nephrology recommends HD on Sunday. BP this morning 181/89. Case management on board to set up HD in the outpatient setting. Patient does not qualify for SNF but may require assistance with making it to dialysis. BMP Na 128, BUN 37, Cr 3.18, glu 104, Ca 7.7. Mag 1.9. 09/08 Patient was seen and examined. He reports neuropathic pain in his left foot. BP improved to 158/82. BMP Na 128, Cl 97, BUN 50, Cr 4.33, Ca 7.6. General: non toxic, no distress, appears at stated age Derm: warm, dry Head: atraumatic, normocephalic, symmetric Eyes: EOMI, no lid lag, anicteric sclera Mouth: no lip lesion, mucus membranes moist Cardiovascular: Good distal perfusion in all 4 extremities, Normal S1 S2. Lungs: Breathing comfortably, no accessory muscle use, CTA BL Ext: no gross muscle atrophy, no edema, R AKA Psych: Alert, oriented, appropriate affect Based on my assessment of this patient, this patient meets a moderate complexity level of care. Patient has an acute diagnosis of MARIO on CKD with metabolic abnormalities that poses a threat to life or bodily function. MARIO on CKD: Next HD on Sunday. Phoslo 667 mg PO BID. Nephrology on board. Hypertensive urgency: Renal artery duplex suboptimal. Hydralazine 100 mg PO TID with 10 mg IV Q4H with parameters. Coreg 25 mg PO BID. Amlodipine to 10 mg PO BID. Metabolic acidosis: Expected to resolve with HD. Elevated troponin: Likely troponin leak. Troponin flat. No chest pain. ACS ruled out. CODE STATUS: FULL CODE. DVT Prophylaxis: Heparin SQ GI Prophylaxis: Designated medical POA if patient is not able to make medical decisions for t hemselves: I have reviewed the following business continuity consultant notes: Nephrology I have reviewed the results of the following tests: [facility] I have ordered the following tests: I have discussed the care of this patient with the following independent historian: I have independently interpreted the following test below: I have discussed the management of this patient with the following physician: Objective - Vital Signs Vital signs: Vital Signs Temp 97.8 F 09/09/23 01:31 Pulse 54 L 09/09/23 08:21 Resp 17 09/09/23 08:21 BP 158/82 09/09/23 01:31 Pulse Ox 93 L 09/09/23 01:31 FiO2 Intake & Output 09/08/23 09/09/23 09/09/23 18:59 06:59 18:59 Output Total 250 Balance -250 Weight 70.5 kg Output: Urine 250 Other: Voiding Method Indwelling Catheter Indwelling Catheter Indwelling Catheter - Labs CBC & Chem 7: 09/04/23 07:54 09/09/23 05:40 Labs: Abnormal Lab Results - Last 24 Hours (Table) 09/09/23 Range/Units 05:40 Sodium 128 L (137-145) mmol/L Chloride 97 L (98-107) mmol/L BUN 50 H (9-20) mg/dL Creatinine 4.33 H (0.66-1.25) mg/dL Calcium 7.6 L (8.4-10.2) mg/dL
--- NOTE | 2023-09-09 11:26 | P.PN ---
Subjective patient is seen for follow-up for acute kidney injury and chronic kidney disease. Started on hemodialysis on 09/03/2023 No significant complaints today. urine output remains low. scheduled for hemodialysis in a.m. Objective - Vital Signs Vital signs: Vital Signs Temp 97.7 F 09/09/23 07:00 Pulse 54 L 09/09/23 08:21 Resp 17 09/09/23 08:21 BP 155/76 09/09/23 07:00 Pulse Ox 92 L 09/09/23 07:00 FiO2 Intake & Output 09/08/23 09/09/23 09/09/23 18:59 06:59 18:59 Output Total 250 Balance -250 Weight 70.5 kg Output: Urine 250 Other: Voiding Method Indwelling Catheter Indwelling Catheter Indwelling Catheter - Exam patient is awake, comfortable, no acute distress Examination of the heart S1 and S2 Examination of the lungs bilateral breath sounds are heard Abdomen is soft nontender Examination of lower extremities shows no significant edema SALES SUPPORT SPECIALIST exam shows patient is moving all 4 extremities. - Labs CBC & Chem 7: 09/04/23 07:54 09/09/23 05:40 Labs: Abnormal Lab Results - Last 24 Hours (Table) 09/09/23 Range/Units 05:40 Sodium 128 L (137-145) mmol/L Chloride 97 L (98-107) mmol/L BUN 50 H (9-20) mg/dL Creatinine 4.33 H (0.66-1.25) mg/dL Calcium 7.6 L (8.4-10.2) mg/dL Assessment and Plan Assessment: 1. Acute kidney injury secondary to hemodynamic ATN. Creatinine greater than 10 this admission. Started on hemodialysis September 03, 2023. No hydronephrosis noted on CAT scan/uls. Both kidneys relatively normal in size. 2. Chronic kidney disease stage IIIa with baseline creatinine 1.2-1.3. Suspect nephrosclerosis. 3. Hypertensive urgency. Improved. 4. Hyperkalemia secondary to acute kidney injury, lisinopril and acidosis. Improved with medical management and dialysis. 5. Metabolic acidosis secondary to acute kidney injury status post bicarb drip. Improved. 6. Abdominal aortic aneurysm status post endovascular stent graft repair. 7. Hyperphosphatemia secondary to acute kidney injury. Phosphorus level 5.5 dated September 03, 2023. On PhosLo. Plan: hemodialysis in a.m. Patient will need to continue hemodialysis as outpatient.
--- NOTE | 2023-09-09 12:07 | P.PN ---
Subjective Progress Note Date: 09/09/23 I was asked to evaluate this patient for possible ICU transfer as the patient is suffering from an acute kidney injury. The patient is 80 years old and he has chronic atrial fibrillation. He also has history of abdominal aortic aneurysm status post endovascular stent graft repair and he has undergone a previous right-sided BKA. He is known also to have CAD, has coronary stents, hypertension hyperlipidemia. He was found by his granddaughter today to be quite confused and this was out of ordinary for the patient. For that reason, the patient was brought into the hospital and the patient was found to be in acute kidney injury. Immediately Schulz catheter was inserted and the patient was started on a bicarb infusion. In summary, the patient's creatinine is at 9.98 with a BUN of 74. Potassium level was at 6.5. Sodium levels at 136. Normal LFTs. UA showed 23 WBCs, 3 RBCs and the troponin was at 0.05 with a normal CPK of 40. White cell count was at 9.7 with a hemoglobin 15.8. Noted the patient's previous creatinines have been mildly elevated as the patient's creatinine from 08/28/2023 was 1.34 and 04/02/2023 the creatinine was at 1.2. His GFR was 59 and 55 respectively consistent with stage III chronic kidney disease. No intake of any nonsteroidal anti-inflammatory medication. No NADYA inhibitor use. No other history is available. Note that the patient was in the hospital approximately 5 months ago and at that time the patient sustained a fall and he developed a pelvic hematoma based on the CAT scan of the abdomen and pelvis that was done at that time. Nevertheless he did not have any endovascular leaks. The CAT scan of the abdomen and pelvis that was done at that time, on 03/27/2023 showed a hematoma in the left pelvis measuring 11 cm in size and mass effect on the bladder. There was trace amount of hemorrhagic fluid within the pelvis. He also had some postsurgical changes in the Ortho by iliac area with endovascular stent grafting and the distal abdominal aortic aneurysm measuring 7.3 cm in size. There was an increase in the proximal abdominal aortic aneurysm in the proximal aspect of the stent and was measuring 5.4 cm. Based on that, a repeat CAT scan of the abdomen was requested in the emergency and the patient was found to have a stable sized abdominal aortic aneurysm with aorto endograft stents placed. 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 There was diverticulosis. There was decrease in the size of the previously described pelvic hematoma. As such, the patient also had a stable hemoglobin. For now, the patient is on bicarb infusion. He was given D50 insulin regarding his hyperkalemia and he was also given 50 mEq of sodium bicarb. Subsequent potassium level dropped down to 5.3. His respiratory status is stable. The patient has no significant difficulties in breathing. No hypotension. No signs of any fluid overload. Patient was reevaluated today on 09/03/2023, patient was actually seen yesterday by Dr. Hall, and he did not feel the patient needed to be admitted to the ICU. Patient presented with acute kidney injury he is known to have history of chronic kidney disease, this time he has worsening kidney picture as well as hyperkalemia, anion gap metabolic acidosis, and the patient was seen by nephrology this morning, he is being considered for renal replacement therapy. Nephrology will arrange for a dialysis catheter placement, and I believe the patient will start on hemodialysis. Patient seems very comfortable on room air O2 sats is 95%, he is hemodynamically stable. WBC count is 10.9 hemoglobin 14.4 basic metabolic profile is normal potassium is down to 5.1 BUN is 84 creatinine 10.02 and the patient is oliguric Reevaluate today on 09/04/2023, patient is now on hemodialysis started yesterday 09/03/2023, urine output remains low, patient is still receiving IV fluids, patient is relatively asymptomatic, no cough no wheezing no shortness of breath. Patient is known to have history of chronic kidney disease stage III AA baseline creatinine ranging between 1.2-1.3. This admission the patient had acute on chronic kidney injury with hypertensive urgency, hyperkalemia, metabolic acidosis, and history of abdominal aortic aneurysm with previous endovascular stent graft repairCBC is relatively normal basic metabolic profile is normal BUN is 64 creatinine down to 7.97 Reevaluate today on 09/05/2023, patient remains on hemodialysis, doing well, feeling better, breathing easier, does not seem to be in any distress.On room air O2 sats of 94% blood pressure 142/85. The patient is seen today September 06, 2023 in follow-up on the regular medical floor. He is currently awake and alert. He did receive hemodialysis yesterday. He denies any worsening shortness of breath, cough or congestion. He is maintaining good O2 saturation in the 90s on room air. He is afebrile. Hemodyn amically stable. Sodium 132. Potassium 4.1. Bicarb 24. BUN 31. Creatinine 3.64. Glucose 80. He remains on heparin for DVT prophylaxis. Continued on oral diuretics. The patient is seen today September 07, 2023 in follow-up on the regular medical floor. He is presently resting comfortably in bed. Awake and alert in no acute distress. Currently receiving hemodialysis. He is maintaining good O2 saturation in the 90s on room air. Remains on heparin for DVT prophylaxis. Sodium 134. Potassium 4.4. Bicarb 25. BUN 2041. Creatinine 4.6. Glucose 87. The patient is seen today September 08, 2023 in follow-up on the regular medical floor. He is resting comfortably in bed. Awake and alert in no acute distress. No plans for hemodialysis today. He denies any shortness of breath, cough or c ongestion. He is maintaining good O2 saturations in the 90s on room air. He is afebrile. Hemodynamically stable. Sodium 128. Potassium 4.2. Bicarb 27. BUN 37. Creatinine 3.18. Glucose 104. Continued on heparin for DVT prophylaxis. Remains on oral diuretics. The patient is seen today September 09, 2023 in follow-up on the regular medical floor. He is currently resting comfortably in bed. Awake and alert in no acute distress. He denies any worsening shortness of breath, cough or congestion. Continues to maintain good O2 saturations in the 90s on room air. He has been afebrile. Hemodynamically stable. Sodium 128. Potassium 4.3. Bicarb 23. BUN 50. Creatinine 4.33. Glucose 80. Plan is for hemodialysis tomorrow. Objective - Vital Signs Vital signs: Vital Signs Temp 97.7 F 09/09/23 07:00 Pulse 54 L 09/09/23 08:21 Resp 17 09/09/23 08:21 BP 155/76 09/09/23 07:00 Pulse Ox 92 L 09/09/23 07:00 FiO2 Intake & Output 09/08/23 09/09/23 09/09/23 18:59 06:59 18:59 Output Total 250 Balance -250 Weight 70.5 kg Output: Urine 250 Other: Voiding Method Indwelling Catheter Indwelling Catheter Indwelling Catheter - Exam GENERAL EXAM: Alert, pleasant 78-year-old male patient, resting in bed, on room air, in no apparent distress. HEAD: Normocephalic. EYES: Normal reaction of pupils, equal size. NOSE: Clear with pink turbinates. THROAT: No erythema or exudates. NECK: No masses, no JVD. Right IJ permacath in place. CHEST: No chest wall deformity. LUNGS: Equal air entry with crackles in the posterior bases. CVS: S1 and S2 normal with no audible murmur, regular rhythm. ABDOMEN: No hepatosplenomegaly, normal bowel sounds, no guarding or rigidity. SPINE: No scoliosis or deformity SKIN: No rashes CENTRAL NERVOUS SYSTEM: No focal deficits, tone is normal in all 4 extremities. EXTREMITIES: Right [id number] amputation. There is no peripheral edema. No clubbing, no cyanosis. Peripheral pulses are intact. - Labs CBC & Chem 7: 09/04/23 07:54 09/09/23 05:40 Labs: Abnormal Lab Results - Last 24 Hours (Table) 09/09/23 Range/Units 05:40 Sodium 128 L (137-145) mmol/L Chloride 97 L (98-107) mmol/L BUN 50 H (9-20) mg/dL Creatinine 4.33 H (0.66-1.25) mg/dL Calcium 7.6 L (8.4-10.2) mg/dL Assessment and Plan Assessment: Acute on chronic kidney disease, initiated on hemodialysis September 03, 2023 Acute hyperkalemia, recovered, current potassium 4.3 Acute anion gap metabolic acidosis, recovered Pelvic hematoma related to a previous fall, follow-up CAT scan of the abdomen and pelvis shows decrease in size of the pelvic hematoma. No anatomic obstruction and there is no hydronephrosis. Altered mental status secondary to metabolic encephalopathy, improved Chronic atrial fibrillation, maintained on long-term anticoagulation with warfarin, rate is controlled for now History of fall with development of pelvic hematoma, hemoglobin is stable and CAT scan of the abdomen pelvis that showed no evidence of any endovascular leak Peripheral vascular disease with previous aorto by iliac stent grafting Abdominal aortic aneurysm, stable COPD, currently inactive and stable Coronary disease with previous coronary stenting Previous above-knee amputation on the right Hypertension Depression/PTSD Remote history of DVT Obstructive sleep apnea Diverticulosis 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 Plan: The patient was seen and evaluated Labs and medications reviewed Stable and on room air Plan is for hemodialysis again tomorrow per nephrology This patient was seen independently by the pulmonary nurse practitioner addressing pulmonary issues I have personally seen and examined the patient, performed the documentation and the assessment and plan as written. Number of minutes spent on the visit: 24.
[2023-09-10] MEDS: HYDROcodone/APAP 5-325MG 1 EACH TAB PO PRN (09:11)
--- NOTE | 2023-09-10 10:12 | P.PN ---
Subjective patient is seen for follow-up for acute kidney injury and chronic kidney disease. Started on hemodialysis on 09/03/2023 No significant complaints today. urine output remains low. seen on hemodialysis. Tolerating treatment well. Objective - Vital Signs Vital signs: Vital Signs Temp 97.7 F 09/10/23 07:20 Pulse 71 09/10/23 07:20 Resp 19 09/10/23 07:20 BP 170/75 09/10/23 07:20 Pulse Ox 92 L 09/10/23 09:59 FiO2 Intake & Output 09/09/23 09/10/23 09/10/23 18:59 06:59 18:59 Weight 70 kg Other: Voiding Method Indwelling Catheter Indwelling Catheter - Exam patient is awake, comfortable, no acute distress Examination of the heart S1 and S2 Examination of the lungs bilateral breath sounds are heard Abdomen is soft nontender Examination of lower extremities shows no significant edema CHICKEN CATCHER exam shows patient is moving all 4 extremities. - Labs CBC & Chem 7: 09/04/23 07:54 09/09/23 05:40 Assessment and Plan Assessment: 1. Acute kidney injury secondary to hemodynamic ATN. Creatinine greater than 10 this admission. Started on hemodialysis September 03, 2023. No hydronephrosis noted on CAT scan/uls. Both kidneys relatively normal in size. 2. Chronic kidney disease stage IIIa with baseline creatinine 1.2-1.3. Suspect nephrosclerosis. 3. Hypertensive urgency. Improved. 4. Hyperkalemia secondary to acute kidney injury, lisinopril and acidosis. Improved with medical management and dialysis. 5. Metabolic acidosis secondary to acute kidney injury status post bicarb drip. Improved. 6. Abdominal aortic aneurysm status post endovascular stent graft repair. 7. Hyperphosphatemia secondary to acute kidney injury. Phosphorus level 5.5 dated September 03, 2023. On PhosLo. Plan: Patient will need to continue hemodialysis as outpatient. Discharge planning to arrange for outpatient care time.
--- NOTE | 2023-09-10 10:45 | IR ---
EXAMINATION TYPE: IR cvc insert non tunneled Intraoperative/procedural fluoroscopic services were pro vided. CLINICAL INDICATION:Male, 78 years old with history of hemodialysis; , [facility] Total fluoroscopy time is 4.2 min. DAP: 3.686 Gycm2 uGym2 Please see the operative/procedural note for further details.
--- NOTE | 2023-09-10 12:54 | P.PN ---
Subjective Progress Note Date: 09/10/23 78-year-old man, active smoker, history of A-fib, with significant history of right-sided AKA secondary to peripheral arterial disease, abdominal aortic aneurysm status post graft repair, recent mechanical fall resulting in pelvic hematoma, fractures, aortic graft leak, CAD status post stents, hypertensio n/hyperlipidemia presented for evaluation of confusion. In the emergency room, patient was afebrile, 179 of 124, heart rate 101, 98% on 2 L nasal cannula. CBC was remarkable for mild thrombocytopenia to 135. Basic metabolic panel showed sodium of 136, potassium is 6.5, CO2 of 16, anion gap of 16, BUN of 74, creatinine of 9.98. Liver function test showed bilirubin of 1.4, AST of 16. Troponin is 0.055. UA showed 2+ protein, trace glucose, small blood, trace leukocyte esterase, 23 white blood cells, 29 hyaline casts. Urine tox screen is positive for opiates. Repeat basic metabolic panel showed potassium of 6.1, creatinine of 9.97, CO2 of 14. Patient was initiated on a bicarb drip, and provided shifting agents by the emergency room. Nephrology, pulmonology were consulted. Pulmonology ordered CT of the abdomen/pelvis given patient's previous history of pelvic hematoma and in order to rule out bilateral hydronephrosis, and this was negative for hydronephrosis. Nephrology consulted, recommended HD. Vascular surgery consulted for HD access. Started on HD on 09/02, 09/03, 09/04, 09/06. Metoprolol switched to Coreg and titrated for better BP control. Hydralazine scheduled PO and PRN IV, Amlodipine added by Nephrology. 09/07 Patient was seen and examined. Sleeping comfortably. Sitter at bedside. Nephrology recommends HD on Sunday. BP this morning 181/89. Case management on board to set up HD in the outpatient setting. Patient does not qualify for SNF but may require assistance with making it to dialysis. BMP Na 128, BUN 37, Cr 3.18, glu 104, Ca 7.7. Mag 1.9. 09/08 Patient was seen and examined. He reports neuropathic pain in his left foot. BP improved to 158/82. BMP Na 128, Cl 97, BUN 50, Cr 4.33, Ca 7.6. 09/09 Patient was seen and examined. No new complaints. Plans for HD today. Discussed with case management, functional status may have declined since the weekend, pending PT/OT evaluation for possible SNF. General: non toxic, no distress, appears at stated age Derm: warm, dry Head: atraumatic, normocephalic, symmetric Eyes: EOMI, no lid lag, anicteric sclera Mouth: no lip lesion, mucus membranes moist Cardiovascular: Good distal perfusion in all 4 extremities, Normal S1 S2. Lungs: Breathing comfortably, no accessory muscle use, CTA BL Ext: no gross muscle atrophy, no edema, R AKA Psych: Alert, oriented, appropriate affect Based on my assessment of this patient, this patient meets a moderate complexity level of care. Patient has an acute diagnosis of MARIO on CKD with metabolic abnormalities that poses a threat to life or bodily function. MARIO on CKD: Next HD on Sunday. Phoslo 667 mg PO BID. Nephrology on board. Hypertensive urgency: Renal artery duplex suboptimal. Hydralazine 100 mg PO TID with 10 mg IV Q4H with parameters. Coreg 25 mg PO BID. Amlodipine to 10 mg PO BID. Metabolic acidosis: Expected to resolve with HD. Elevated troponin: Likely troponin leak. Troponin flat. No chest pain. ACS ruled out. CODE STATUS: FULL CODE. DVT Prophylaxis: Heparin SQ GI Prophylaxis: Designated medical POA if patient is not able to make medical decisions for themselves: I have reviewed the following identity management consultant notes: Nephrology I have reviewed the results of the following tests: I have ordered the following tests: I have discussed the care of this patient with the following independent historian: I have independently interpreted the following test below: I have discussed the management of this patient with the following physician: Objective - Vital Signs Vital signs: Vital Signs Temp 97.7 F 09/10/23 07:20 Pulse 71 09/10/23 07:30 Resp 19 09/10/23 07:30 BP 170/75 09/10/23 07:20 Pulse Ox 92 L 09/10/23 09:59 FiO2 Intake & Output 09/09/23 09/10/23 09/10/23 18:59 06:59 18:59 Weight 70 kg Other: Voiding Method Indwelling Catheter Indwelling Catheter Indwelling Catheter - Labs CBC & Chem 7: 09/04/23 07:54 09/09/23 05:40
--- NOTE | 2023-09-10 14:24 | P.PN ---
Subjective Progress Note Date: 09/10/23 I was asked to evaluate this patient for possible ICU transfer as the patient is suffering from an acute kidney injury. The patient is 80 years old and he has chronic atrial fibrillation. He also has history of abdominal aortic aneurysm status post endovascular stent graft repair and he has undergone a previous right-sided BKA. He is known also to have CAD, has coronary stents, hypertension hyperlipidemia. He was found by his granddaughter today to be quite confused and this was out of ordinary for the patient. For that reason, the patient was brought into the hospital and the patient was found to be in acute kidney injury. Immediately Schulz catheter was inserted and the patient was started on a bicarb infusion. In summary, the patient's creatinine is at 9.98 with a BUN of 74. Potassium level was at 6.5. Sodium levels at 136. Normal LFTs. UA showed 23 WBCs, 3 RBCs and the troponin was at 0.05 with a normal CPK of 40. White cell count was at 9.7 with a hemoglobin 15.8. Noted the patient's previous creatinines have been mildly elevated as the patient's creatinine from 08/28/2023 was 1.34 and 04/02/2023 the creatinine was at 1.2. His GFR was 59 and 55 respectively consistent with stage III chronic kidney disease. No intake of any nonsteroidal anti-inflammatory medication. No NADYA inhibitor use. No other history is available. Note that the patient was in the hospital approximately 5 months ago and at that time the patient sustained a fall and he developed a pelvic hematoma based on the CAT scan of the abdomen and pelvis that was done at that time. Nevertheless he did not have any endovascular leaks. The CAT scan of the abdomen and pelvis that was done at that time, on 03/27/2023 showed a hematoma in the left pelvis measuring 11 cm in size and mass effect on the bladder. There was trace amount of hemorrhagic fluid within the pelvis. He also had some postsurgical changes in the Ortho by iliac area with endovascular stent grafting and the distal abdominal aortic aneurysm measuring 7.3 cm in size. There was an increase in the proximal abdominal aortic aneurysm in the proximal aspect of the stent and was measuring 5.4 cm. Based on that, a repeat CAT scan of the abdomen was requested in the emergency and the patient was found to have a stable sized abdominal aortic aneurysm with aorto endograft stents placed. 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 There was diverticulosis. There was decrease in the size of the previously described pelvic hematoma. As such, the patient also had a stable hemoglobin. For now, the patient is on bicarb infusion. He was given D50 insulin regarding his hyperkalemia and he was also given 50 mEq of sodium bicarb. Subsequent potassium level dropped down to 5.3. His respiratory status is stable. The patient has no significant difficulties in breathing. No hypotension. No signs of any fluid overload. Patient was reevaluated today on 09/03/2023, patient was actually seen yesterday by Dr. Hall, and he did not feel the patient needed to be admitted to the ICU. Patient presented with acute kidney injury he is known to have history of chronic kidney disease, this time he has worsening kidney picture as well as hyperkalemia, anion gap metabolic acidosis, and the patient was seen by nephrology this morning, he is being considered for renal replacement therapy. Nephrology will arrange for a dialysis catheter placement, and I believe the patient will start on hemodialysis. Patient seems very comfortable on room air O2 sats is 95%, he is hemodynamically stable. WBC count is 10.9 hemoglobin 14.4 basic metabolic profile is normal potassium is down to 5.1 BUN is 84 creatinine 10.02 and the patient is oliguric Reevaluate today on 09/04/2023, patient is now on hemodialysis started yesterday 09/03/2023, urine output remains low, patient is still receiving IV fluids, patient is relatively asymptomatic, no cough no wheezing no shortness of breath. Patient is known to have history of chronic kidney disease stage III AA baseline creatinine ranging between 1.2-1.3. This admission the patient had acute on chronic kidney injury with hypertensive urgency, hyperkalemia, metabolic acidosis, and history of abdominal aortic aneurysm with previous endovascular stent graft repairCBC is relatively normal basic metabolic profile is normal BUN is 64 creatinine down to 7.97 Reevaluate today on 09/05/2023, patient remains on hemodialysis, doing well, feeling better, breathing easier, does not seem to be in any distress.On room air O2 sats of 94% blood pressure 142/85. The patient is seen today September 06, 2023 in follow-up on the regular medical floor. He is currently awake and alert. He did receive hemodialysis yesterday. He denies any worsening shortness of breath, cough or congestion. He is maintaining good O2 saturation in the 90s on room air. He is afebrile. Hemodyn amically stable. Sodium 132. Potassium 4.1. Bicarb 24. BUN 31. Creatinine 3.64. Glucose 80. He remains on heparin for DVT prophylaxis. Continued on oral diuretics. The patient is seen today September 07, 2023 in follow-up on the regular medical floor. He is presently resting comfortably in bed. Awake and alert in no acute distress. Currently receiving hemodialysis. He is maintaining good O2 saturation in the 90s on room air. Remains on heparin for DVT prophylaxis. Sodium 134. Potassium 4.4. Bicarb 25. BUN 2042. Creatinine 4.6. Glucose 87. The patient is seen today September 08, 2023 in follow-up on the regular medical floor. He is resting comfortably in bed. Awake and alert in no acute distress. No plans for hemodialysis today. He denies any shortness of breath, cough or c ongestion. He is maintaining good O2 saturations in the 90s on room air. He is afebrile. Hemodynamically stable. Sodium 128. Potassium 4.2. Bicarb 27. BUN 37. Creatinine 3.18. Glucose 104. Continued on heparin for DVT prophylaxis. Remains on oral diuretics. The patient is seen today September 09, 2023 in follow-up on the regular medical floor. He is currently resting comfortably in bed. Awake and alert in no acute distress. He denies any worsening shortness of breath, cough or congestion. Continues to maintain good O2 saturations in the 90s on room air. He has been afebrile. Hemodynamically stable. Sodium 128. Potassium 4.3. Bicarb 23. BUN 50. Creatinine 4.33. Glucose 80. Plan is for hemodialysis tomorrow. The patient is seen today September 10, 2023 in follow-up on the regular medical floor. He is currently resting in bed. Receiving hemodialysis. There is a goal of 1.5 L to be removed today. He is maintaining good O2 saturation in the 90s on room air. No new labs today. He remains on oral diuretics. Heparin for DVT prophylaxis. Objective - Vital Signs Vital signs: Vital Signs Temp 97.7 F 09/10/23 07:20 Pulse 71 09/10/23 07:30 Resp 19 04/01/24 07:30 BP 170/75 09/10/23 07:20 Pulse Ox 92 L 09/10/23 09:59 FiO2 Intake & Output 09/09/23 09/10/23 09/10/23 18:59 06:59 18:59 Weight 70 kg Other: Voiding Method Indwelling Catheter Indwelling Catheter Indwelling Catheter - Exam GENERAL EXAM: Alert, 78-year-old male patient, receiving hemodialysis, on room air, in no apparent distress. HEAD: Normocephalic. EYES: Normal reaction of pupils, equal size. NOSE: Clear with pink turbinates. THROAT: No erythema or exudates. NECK: No masses, no JVD. Right IJ permacath in place. CHEST: No chest wall deformity. LUNGS: Equal air entry with crackles in the posterior bases. CVS: S1 and S2 normal with no audible murmur, regular rhythm. ABDOMEN: No hepatosplenomegaly, normal bowel sounds, no guarding or rigidity. SPINE: No scoliosis or deformity SKIN: No rashes CENTRAL NERVOUS SYSTEM: No focal deficits, tone is normal in all 4 extremities. EXTREMITIES: Right [id number] amputation. There is no peripheral edema. No clubbing, no cyanosis. Peripheral pulses are intact. - Labs CBC & Chem 7: 09/04/23 07:54 09/09/23 05:40 Assessment and Plan Assessment: Acute on chronic kidney disease, initiated on hemodialysis September 03, 2023 Acute hyperkalemia, recovered, current potassium 4.3 Acute anion gap metabolic acidosis, recovered Pelvic hematoma related to a previous fall, follow-up CAT scan of the abdomen and pelvis shows decrease in size of the pelvic hematoma. No anatomic obstruction and there is no hydronephrosis. Altered mental status secondary to metabolic encephalopathy, improved Chronic atrial fibrillation, maintained on long-term anticoagulation with warfarin, rate is controlled for now History of fall with development of pelvic hematoma, hemoglobin is stable and CAT scan of the abdomen pelvis that showed no evidence of any endovascular leak Peripheral vascular disease with previous aorto by iliac stent grafting Abdominal aortic aneurysm, stable COPD, currently inactive and stable Coronary disease with previous coronary stenting Previous above-knee amputation on the right Hypertension Depression/PTSD Remote history of DVT Obstructive sleep apnea Diverticulosis 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 Plan: The patient was seen and evaluated Medications reviewed Stable and on room air Receiving hemodialysis currently Awaiting placement for subacute rehab that can include hemodialysis I have personally seen and examined the patient, performed the documentation and the assessment and plan as written. Number of minutes spent on the visit: 10.
[2023-09-11 00:44] LABS: ALT 7 U/L (4-49); AST 24 U/L (17-59); African American GFR (CKD) 20 (>60 ml/min/1.73 sqM); Albumin 2.2 g/dL (3.5-5.0); Albumin/Globulin Ratio 1.1; Alkaline Phosphatase 49 U/L (38-126); Anion Gap 2 mmol/L; Blood Urea Nitrogen 32 mg/dL (9-20); Calcium 7.5 mg/dL (8.4-10.2); Carbon Dioxide 29 mmol/L (22-30); Chloride 96 mmol/L (98-107); Glucose 85 mg/dL (74-99); Magnesium 1.9 mg/dL (1.6-2.3); Non-African American GFR(CKD) 17 (>60 ml/min/1.73 sqM); Phosphorus 4.5 mg/dL (2.5-4.5); Sodium 127 mmol/L (137-145); Total Bilirubin 0.7 mg/dL (0.2-1.3); Total Protein 4.2 g/dL (6.3-8.2)
[2023-09-11] MEDS: ISOSORBIDE MONONITRATE ER 30 MG TAB.ER.24H PO SCH (09:46)
[2023-09-11 10:05] VITALS: BMI 21.8
--- NOTE | 2023-09-11 11:17 | P.PN ---
Subjective Progress Note Date: 09/11/23 78-year-old man, active smoker, history of A-fib, with significant history of right-sided AKA secondary to peripheral arterial disease, abdominal aortic aneurysm status post graft repair, recent mechanical fall resulting in pelvic hematoma, fractures, aortic graft leak, CAD status post stents, hypertensio n/hyperlipidemia presented for evaluation of confusion. In the emergency room, patient was afebrile, 179 of 124, heart rate 101, 98% on 2 L nasal cannula. CBC was remarkable for mild thrombocytopenia to 135. Basic metabolic panel showed sodium of 136, potassium is 6.5, CO2 of 16, anion gap of 16, BUN of 74, creatinine of 9.98. Liver function test showed bilirubin of 1.4, AST of 16. Troponin is 0.055. UA showed 2+ protein, trace glucose, small blood, trace leukocyte esterase, 23 white blood cells, 29 hyaline casts. Urine tox screen is positive for opiates. Repeat basic metabolic panel showed potassium of 6.1, creatinine of 9.97, CO2 of 14. Patient was initiated on a bicarb drip, and provided shifting agents by the emergency room. Nephrology, pulmonology were consulted. Pulmonology ordered CT of the abdomen/pelvis given patient's previous history of pelvic hematoma and in order to rule out bilateral hydronephrosis, and this was negative for hydronephrosis. Nephrology consulted, recommended HD. Vascular surgery consulted for HD access. Started on HD on 09/02, 09/03, 09/04, 09/06. Metoprolol switched to Coreg and titrated for better BP control. Hydralazine scheduled PO and PRN IV, Amlodipine added by Nephrology. PT and OT re-evaluated the patient on 09/09, functional status declined, plans for [place]. 09/07 Patient was seen and examined. Sleeping comfortably. Sitter at bedside. Nephrology recommends HD on Sunday. BP this morning 181/89. Case management on board to set up HD in the outpatient setting. Patient does not qualify for SNF but may require assistance with making it to dialysis. BMP Na 128, BUN 37, Cr 3.18, glu 104, Ca 7.7. Mag 1.9. 09/08 Patient was seen and examined. He reports neuropathic pain in his left foot. BP improved to 158/82. BMP Na 128, Cl 97, BUN 50, Cr 4.33, Ca 7.6. 09/09 Patient was seen and examined. No new complaints. Plans for HD today. Dis cussed with case management, functional status may have declined since the weekend, pending PT/OT evaluation for possible SNF. 09/10 Patient was seen and examined. He reporst no complaints. Noted to be bradycardic on telemetry overnight with HR in the 20s with ectopy and possible pauses. He had no complaints when seen at that time. Noted to have a history of sleep apnea but does not wear his CPAP. Conveyor Monitor ordered a EKG and Echo and consulted Cardiology. EKG showed atrial fibrillation with ventricular rate of [address] and T wave abnormalities. Coreg decreased from 25 mg to 12.5 mg PO BID. Imdur 30 mg PO QD added for better BP control. Plans for HD today. BMP sows Na 127, Cl 96, BUN 32, Cr 3.31, Ca 7.5, alb 2.2. Mag 1.9. Plans for discharge to [facility] depending on Cardiology clearance, results of Echo and if HR remains stable. General: non toxic, no distress, appears at stated age Derm: warm, dry Head: atraumatic, normocephalic, symmetric Eyes: EOMI, no lid lag, anicteric sclera Mouth: no lip lesion, mucus membranes moist Cardiovascular: Good distal perfusion in all 4 extremities, Normal S1 S2 moshe. Lungs: Breathing comfortably, no accessory muscle use, CTA BL Ext: no gross muscle atrophy, no edema, R AKA Psych: Alert, oriented, appropriate affect Based on my assessment of this patient, this patient meets a moderate complexity level of care. Patient has an acute diagnosis of MARIO on CKD with metabolic abnormalities that poses a threat to life or bodily function. Atrial fibrillation with slow ventricular rate: Decrease Coreg from 25 to 12.5 mg PO BID. Echocardiogram ordered. Cardiology consulted. Telemetry monitoring. MARIO on CKD: Plans for HD today. Switch to TTS schedule when discharge to [facility]. Phoslo 667 mg PO BID. Nephrology on board. Hypertensive urgency: Renal artery duplex suboptimal. Hydralazine 100 mg PO TID with 10 mg IV Q4H with parameters. Coreg 12.5 mg PO BID. Amlodipine 10 mg PO DQ. Imdur 30 mg PO QD. Elevated troponin: Likely troponin leak. Troponin flat. No chest pain. ACS ruled out. Resolved: Metabolic acidosis. CODE STATUS: FULL CODE. DVT Prophylaxis: Heparin SQ GI Prophylaxis: Designated medical POA if patient is not able to make medical decisions for themselves: I have reviewed the following ada accommodation consultant notes: Nephrology, Pulmonary I have reviewed the results of the following tests: BMP. Mag. I have ordered the following tests: Agree with Echo. I have discussed the care of this patient with the following independent historian: Case management. I have independently interpreted the following test below: EKG I have discussed the management of this patient with the following physician: Objective - Vital Signs Vital signs: Vital Signs Temp 98.5 F 09/11/23 07:13 Pulse 63 09/11/23 09:59 Resp 17 09/11/23 07:13 BP 122/66 09/11/23 09:59 Pulse Ox 95 09/11/23 07:13 FiO2 Intake & Output 09/10/23 09/11/23 09/11/23 18:59 06:59 18:59 Intake Total 120 Output Total 100 Balance 120 -100 Weight 73 kg 73 kg Intake: Oral 120 Output: Urine 100 Other: Voiding Method Indwelling Catheter Indwelling Catheter - Labs CBC & Chem 7: 09/04/23 07:54 09/11/23 00:09 Labs: Abnormal Lab Results - Last 24 Hours (Table) 09/11/23 Range/Units 00:09 Sodium 127 L (137-145) mmol/L Chloride 96 L (98-107) mmol/L BUN 32 H (9-20) mg/dL Creatinine 3.31 H (0.66-1.25) mg/dL Calcium 7.5 L (8.4-10.2) mg/dL Total Protein 4.2 L (6.3-8.2) g/dL Albumin 2.2 L (3.5-5.0) g/dL
--- NOTE | 2023-09-11 13:28 | P.PN ---
Subjective patient is seen for follow-up for acute kidney injury and chronic kidney disease. Started on hemodialysis on 09/03/2023 No significant complaints today. urine output remains low. schedule for hemodialysis today as patient will be maintained on Sunday schedule as outpatient. No complaints, awaiting hemodialysis prior to discharge. 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 - Labs CBC & Chem 7: 09/04/23 07:54 09/11/23 00:09 Labs: Abnormal Lab Results - Last 24 Hours (Table) 09/11/23 Range/Units 00:09 Sodium 127 L (137-145) mmol/L Chloride 96 L (98-107) mmol/L BUN 32 H (9-20) mg/dL Creatinine 3.31 H (0.66-1.25) mg/dL Calcium 7.5 L (8.4-10.2) mg/dL Total Protein 4.2 L (6.3-8.2) g/dL Albumin 2.2 L (3.5-5.0) g/dL Assessment and Plan Assessment: 1. Acute kidney injury secondary to hemodynamic ATN. Creatinine greater than 10 this admission. Started on hemodialysis September 03, 2023. No hydronephrosis noted on CAT scan/uls. Both kidneys relatively normal in size. 2. Chronic kidney disease stage IIIa with baseline creatinine 1.2-1.3. Suspect nephrosclerosis. 3. Hypertensive urgency. Improved. 4. Hyperkalemia secondary to acute kidney injury, lisinopril and acidosis. Improved with medical management and dialysis. 5. Metabolic acidosis secondary to acute kidney injury status post bicarb drip. Improved. 6. Abdominal aortic aneurysm status post endovascular stent graft repair. 7. Hyperphosphatemia secondary to acute kidney injury. Phosphorus level 5.5 dated September 03, 2023. On PhosLo. Plan: okay to discharge post hemodialysis today.
--- NOTE | 2023-09-11 13:38 | CA ---
Transthoracic Echo Report Name: Joaquin Fofana Age: 78 Gender: M : 1945 Exam Date: 09/11/2023 10:48 Exam Location: [facility] Ht (in): 72 Wt (lb): 154 Ordering Physician: Walter Roberts MD Attending/Referring Phys: [id number], Armando Landfill Attendant Yuliet Casarez RCS Procedure CPT: Indications: afib , bradycardia, pauses Cardiac Hx: Technical Quality: Good Contrast 1: Total Dose (mL): Contrast 2: Total Dose (mL): MEASUREMENTS (Male / Female) Normal Values 2D ECHO LV Diastolic Diameter PLAX 4.7 cm 4.2 - 5.9 / 3.9 - 5.3 cm LV Systolic Diameter PLAX 3.4 cm IVS Diastolic Thickness 1.0 cm 0.6 - 1.0 / 0.6 - 0.9 cm LVPW Diastolic Thickness 1.1 cm 0.6 - 1.0 / 0.6 - 0.9 cm LV Relative Wall Thickness 0.4 RV Internal Dim ED PLAX 3.6 cm LVOT Diameter 2.3 cm LV Diastolic Volume MOD BP 146.9 cm??? 67 - 155 / 56 - 104 cm??? LV Systolic Volume MOD BP 69.5 cm??? 22 - 58 / 19 - 49 cm??? LV Ejection Fraction MOD BP 52.7 % >= 55 % LV Cardiac Index MOD BP 1896.6 cm???/min???m??? LV Diastolic Volume MOD 4C 145.5 cm??? LV Systolic Volume MOD 4C 67.4 cm??? LV Ejection Fraction MOD 4C 53.7 % LV Cardiac Index MOD 4C 1913.6 cm???/min???m??? LV Diastolic Length 4C 8.6 cm LV Systolic Length 4C 7.7 cm LV Diastolic Volume MOD 2C 143.6 cm??? LV Systolic Volume MOD 2C 67.8 cm??? LV Ejection Fraction MOD 2C 52.8 % LV Cardiac Index MOD 2C 1856.7 cm???/min???m??? LV Diastolic Length 2C 9.0 cm LV Systolic Length 2C 7.2 cm LA Volume 170.7 cm??? 18 - 58 / 22 - 52 cm??? LA Volume Index 90.9 cm???/m??? 16 - 28 cm???/m??? DOPPLER AV Peak Velocity 165.9 cm/s AV Peak Gradient 11.0 mmHg AV Mean Velocity 125.4 cm/s AV Mean Gradient 6.9 mmHg AV Velocity Time Integral 33.8 cm LVOT Peak Velocity 116.8 cm/s LVOT Peak Gradient 5.5 mmHg LVOT Velocity Time Integral 24.8 cm LVOT Stroke Volume 106.0 cm??? LVOT Stroke Volume Index 55.6 ml/m??? LVOT Cardiac Index 2598.4 cm???/min???m??? AV Area Cont Eq vti 3.1 cm??? AV Area Cont Eq pk 3.0 cm??? PV Peak Velocity 79.7 cm/s PV Peak Gradient 2.5 mmHg FINDINGS Left Ventricle Left ventricular ejection fraction is estimated at 50-55 %. Mildly increased left ventricular systolic volume. Mildly decreased left ventricular ejection fraction. Left ventricular wall thickness normal. No obvious regional wall motion abnormalities. Right Ventricle Mild right ventricular dilatation with mildly reduced function. Unable to estimate right ventricular systolic function. Right Atrium Severe right atrial dilatation. Left Atrium Severely increased left atrial volume. Moderately increased left atrial area. Mitral Valve Structurally normal mitral valve. Mitral annular calcification. No evidence for mitral valve prolapse. No mitral stenosis. Trace mitral regurgitation. Aortic Valve Trileaflet aortic valve with mildly decreased leaflet excursion and mild to moderate aortic sclerosis. No aortic valve stenosis or regurgitation. Tricuspid Valve Structurally normal tricuspid valve. No tricuspid stenosis. Trace tricuspid regurgitation. Pulmonic Valve Structurally normal pulmonic valve. No pulmonic stenosis. Trace pulmonic regurgitation. Pericardium No pericardial effusion. Aorta Aortic annulus normal. Ascending aorta not well visualized. CONCLUSIONS Left ventricular ejection fraction 50-55% Mildly increased left ventricular wall thickness Moderate to severe biatrial enlargement Mild right ventricular dilation Trace mitral regurgitation No pericardial effusion Previewed by: Dr. Johnny Siegel DO (Electronically Signed) Final Date: 11 September 2023 13:38
--- NOTE | 2023-09-11 13:41 | P.CRDCN ---
History of Present Illness Consult date: 09/11/23 Reason for Consult (text): Bradycardia greater than 2 seconds History of present illness: History of present illness: This is a 78-year-old male patient of Dr. Siegel with past medical history of right [id number] amputation, persistent atrial fibrillation, hypertension, hyperlipidemia, coronary artery disease with multiple stents in the past, chronic kidney disease, PAD with abdominal aortic aneurysm status post EVAR with additional PAD. We have been asked to evaluate the patient for bradycardia greater than 2 seconds. Patient was admitted to the hospital on 09/02/2023 and treated for acute kidney injury and starting hemodialysis on 09/02 and received hemodialysis yesterday. He is on oral diuretics in the form of torsemide 40 mg daily. Patient has been on Coreg 25 mg twice daily which was last given on 4 AM dose and has been discontinued due to bradycardia. Subsequently, Coreg 12.5 mg to start this evening. Patient was last seen in the office on 05/10/2023 and at that time the Lexiscan stress test did show a fixed inferior defect consistent with prior infarct as well as small size apical perfusion defect concerning for ischemia. Patient chose at that time as he was asymptomatic would pursue medical therapy. Patient denies having any chest pain or shortness of breath. EKG performed on 09/01 atrial fibrillation with ventricular rate of 88 bpm, repeat EKG performed on 09/10 reveals Chest x-ray: Performed on 09/06 reveals hemodialysis catheter overlying the cavoatrial junction. No pneumothorax. Small bilateral effusion correlate for mild venous congestion. Sodium 127, potassium 4, chloride 96, CO2 29, BUN 32 creatinine 3.31. Calcium 7.5. ALT liver function test are normal. Magnesium 1.9. Home cardiac medications: Eliquis 2.5 mg twice daily, atorvastatin 10 mg at bedtime, digoxin 125 mcg daily, lisinopril 10 mg daily, Lopressor 50 mg daily. Echocardiogram performed 03/27/2023: Normal LV systolic function. Inferior hypokinesis. Biatrial enlargement. Enlarged right ventricle. Lexiscan Cardiolite stress test performed in the office on 04/25/2023 revealed fixed inferior perfusion defect consistent with diaphragmatic attenuation artifact versus infarct. Reversible small size apical perfusion defect consistent with ischemia. Left ventricular EF 40%. Review Of Systems: At the time of my exam: CONSTITUTIONAL: Denies fever or chills. Reports generalized fatigue. HEENT: Denies blurred vision, vision changes, or eye pain. Denies hemoptysis CARDIOVASCULAR: Denies chest pain. Denies orthopnea. Denies PND. Denies palpitations RESPIRATORY: Denies shortness of breath. GASTROINTESTINAL: Denies abdominal pain. Denies nausea or vomiting. HEMATOLOGIC: Denies bleeding disorders. GENITOURINARY: Denies any blood in urine. SKIN: Denies pruitis. Denies rash. Physical examination: Gen: This is a 78-year-old male in no acute distress VS: reviewed blood pressure 143/75, heart rate 59, pulse ox 95% on 2 L nasal cannula, afebrile. HEENT: Head is atraumatic, normocephalic. Pupils equal, round. Sclerae is anicteric. NECK: Supple. No JVD. LUNGS: Clear to auscultation. No wheezes or rhonchi. No intercostal retractions. HEART: Irregular rate and rhythm. No murmur. ABDOMEN: Soft No tenderness. EXTREMITIES: Right zvvwb-[id number]-uhvy amputation. Left lower extremity pulses decreased. No edema. NEUROLOGICAL: Patient is awake, alert and oriented x3. Assessment: Persistent atrial fibrillation with bradycardia Acute kidney injury Acute hyperkalemia resolved Pelvic hematoma due to previous fall with decrease in size on CT Metabolic encephalopathy improved Hypertension Hyperlipidemia Coronary artery disease with multiple stents PAD with abdominal aortic aneurysm status post EVAR with additional PAD History of [id number] amputation on the right Obstructive sleep apnea History of CVA Plan: Continue patient's home cardiac medications Agree with decreasing Coreg to 12.5 mg twice daily Decrease frequency of digoxin 125 mcg to every 48 hours Continue telemetry monitoring No need to repeat echocardiogram Further recommendations to follow based upon clinical course Thank you kindly for this consultation. Nurse practitioner note has been reviewed, I agree with documented findings and plan of care. Patient was seen and examined. Past Medical History Past Medical History: Atrial Fibrillation, Deep Vein Thrombosis (DVT), GERD/Reflux, Hearing Disorder / Deafness, Hyperlipidemia, Osteoarthritis (OA), Prostate Disorder, Sleep Apnea/CPAP/BIPAP Additional Past Medical History / Comment(s): DVT Last Myocardial Infarction Date:: UNKNOWN History of Any Multi-Drug Resistant Organisms: None Reported Past Surgical History: Heart Catheterization With Stent Additional Past Surgical History / Comment(s): Femoral bypass right and left, removed steel from right lung and retired up diaphram, right above knee amputee Past Anesthesia/Blood Transfusion Reactions: No Reported Reaction Date of Last Stent Placement:: UNKNOWN Past Psychological History: Depression, PTSD Smoking Status: Current some day smoker Past Alcohol Use History: Occasional Past Drug Use History: None Reported - Past Family History Mother Family Medical History: Myocardial Infarction ([place]) Father Family Medical History: Dementia Medications and Allergies Home Medications Medication Instructions Recorded Confirmed Type Digoxin [Digitek] 125 mcg PO DAILY 07/09/16 09/02/23 History Metoprolol Tartrate [Lopressor] 50 mg PO DAILY 03/25/23 09/02/23 History Apixaban [Eliquis] 2.5 mg PO BID 09/02/23 09/02/23 History Atorvastatin [Lipitor] 10 mg PO HS 09/02/23 09/02/23 History Cholecalciferol [Vitamin D3 (25 25 mcg PO DAILY 09/02/23 09/02/23 History Mcg = 1000 Iu)] Tamsulosin [Flomax] 0.4 mg PO DAILY 09/02/23 09/02/23 History lisinopriL [Zestril] 10 mg PO DAILY 09/02/23 09/02/23 History Allergies Allergy/AdvReac Type Severity Reaction Status Date / Time No Known Allergies Allergy Verified 09/02/23 19:07 Physical Exam Vitals: Vital Signs Temp Pulse Resp BP BP Pulse Ox 09/11/23 07:13 98.5 F 59 L 17 143/75 95 09/11/23 00:59 98.1 F 63 14 150/79 97 09/10/23 23:36 97.7 F 55 L 148/70 94 L 09/10/23 20:00 55 L 09/10/23 19:39 97.4 F L 49 L 14 142/67 94 L 09/10/23 16:48 55 L 146/58 09/10/23 13:23 97.4 F L 63 19 126/68 92 L 09/10/23 09:59 92 L Intake and Output 09/10/23 09/11/23 09/11/23 22:59 06:59 14:59 Intake Total 120 Output Total 100 Balance 120 -100 Intake: Oral 120 Output: Urine 100 Other: Voiding Method Indwelling Catheter Weight 73 kg Results 09/04/23 07:54 04/02/24 00:09 Cardiac Enzymes 09/11/23 Range/Units 00:09 AST 24 (17-59) U/L Comprehensive Metabolic Panel 09/11/23 Range/Units 00:09 Sodium 127 L (137-145) mmol/L Potassium 4.0 (3.5-5.1) mmol/L Chloride 96 L (98-107) mmol/L Carbon Dioxide 29 (22-30) mmol/L BUN 32 H (9-20) mg/dL Creatinine 3.31 H (0.66-1.25) mg/dL Glucose 85 (74-99) mg/dL Calcium 7.5 L (8.4-10.2) mg/dL AST 24 (17-59) U/L ALT 7 (4-49) U/L Alkaline Phosphatase 49 (38-126) U/L Total Protein 4.2 L (6.3-8.2) g/dL Albumin 2.2 L (3.5-5.0) g/dL Current Medications Generic Name Dose Route Start Last Admin Trade Name Freq PRN Reason Stop Dose Admin Hydrocodone Bitart/Acetaminophen 1 each 09/10/23 07:46 09/10/23 09:11 Hydrocodone/Apap 5-325mg 1 Each Tab PO 1 each Q4HR PRN Administration Pain Amlodipine Besylate 10 mg 09/08/23 09:00 09/10/23 09:13 Amlodipine 10 Mg Tab PO 10 mg DAILY TYLOR Administration Atorvastatin Calcium 10 mg 09/03/23 21:00 09/10/23 21:23 Atorvastatin 10 Mg Tab PO 10 mg HS TYLOR Administration Calcium Acetate 667 mg 09/04/23 11:15 09/11/23 06:44 Calcium Acetate 667 Mg Tab PO 667 mg BID-W/MEALS TYLOR Administration Carvedilol 12.5 mg 09/11/23 17:30 Carvedilol 12.5 Mg Tab PO BID-W/MEALS TYLOR Cholecalciferol 25 mcg 09/03/23 09:00 09/10/23 09:11 Cholecalciferol 25 Mcg (1000 Iu) Tablet PO 25 mcg DAILY TYLOR Administration Digoxin 125 mcg 09/03/23 09:00 09/10/23 09:11 Digoxin 125 Mcg Tab PO 125 mcg DAILY TYLOR Administration Heparin Sodium (Porcine) 5,000 unit 09/06/23 16:00 09/11/23 00:38 Heparin Sodium,Porcine 5,000 Unit/Ml 1 Ml Vial SQ 5,000 unit Q8HR TYLOR Administration Hydralazine HCl 10 mg 09/02/23 17:52 09/08/23 07:24 Hydralazine Hcl 20 Mg/Ml 1 Ml Vial IVP 10 mg Q4HR PRN Administration Blood Pressure - High Hydralazine HCl 100 mg 09/04/23 16:00 09/10/23 21:23 Hydralazine Hcl 50 Mg Tab PO 100 mg TID TYLOR Administration Isosorbide Mononitrate 30 mg 09/11/23 09:00 Isosorbide Mononitrate Er 30 Mg Tab.Er.24h PO DAILY TYLOR Naloxone HCl 0.2 mg 09/02/23 14:37 Naloxone 0.4 Mg/Ml 1 Ml Vial IV Q2M PRN Opioid Reversal Tamsulosin HCl 0.4 mg 09/03/23 09:00 09/10/23 09:11 Tamsulosin 0.4 Mg Cap.Er.24h PO 0.4 mg DAILY TYLOR Administration Torsemide 40 mg 09/07/23 09:00 09/10/23 09:13 Torsemide 20 Mg Tab PO 40 mg DAILY TYLOR Administration Intake and Output 09/10/23 09/11/23 09/11/23 22:59 06:59 14:59 Intake Total 120 Output Total 100 Balance 120 -100 Intake: Oral 120 Output: Urine 100 Other: Voiding Method Indwelling Catheter Weight 73 kg 09/04/23 07:54 09/11/23 00:09
--- NOTE | 2023-09-11 14:52 | P.PN ---
Subjective Progress Note Date: 09/11/23 I was asked to evaluate this patient for possible ICU transfer as the patient is suffering from an acute kidney injury. The patient is 80 years old and he has chronic atrial fibrillation. He also has history of abdominal aortic aneurysm status post endovascular stent graft repair and he has undergone a previous right-sided BKA. He is known also to have CAD, has coronary stents, hypertension hyperlipidemia. He was found by his granddaughter today to be quite confused and this was out of ordinary for the patient. For that reason, the patient was brought into the hospital and the patient was found to be in acute kidney injury. Immediately Schulz catheter was inserted and the patient was started on a bicarb infusion. In summary, the patient's creatinine is at 9.98 with a BUN of 74. Potassium level was at 6.5. Sodium levels at 136. Normal LFTs. UA showed 23 WBCs, 3 RBCs and the troponin was at 0.05 with a normal CPK of 40. White cell count was at 9.7 with a hemoglobin 15.8. Noted the patient's previous creatinines have been mildly elevated as the patient's creatinine from 08/28/2023 was 1.34 and 04/02/2023 the creatinine was at 1.2. His GFR was 59 and 55 respectively consistent with stage III chronic kidney disease. No intake of any nonsteroidal anti-inflammatory medication. No NADYA inhibitor use. No other history is available. Note that the patient was in the hospital approximately 5 months ago and at that time the patient sustained a fall and he developed a pelvic hematoma based on the CAT scan of the abdomen and pelvis that was done at that time. Nevertheless he did not have any endovascular leaks. The CAT scan of the abdomen and pelvis that was done at that time, on 03/27/2023 showed a hematoma in the left pelvis measuring 11 cm in size and mass effect on the bladder. There was trace amount of hemorrhagic fluid within the pelvis. He also had some postsurgical changes in the Ortho by iliac area with endovascular stent grafting and the distal abdominal aortic aneurysm measuring 7.3 cm in size. There was an increase in the proximal abdominal aortic aneurysm in the proximal aspect of the stent and was measuring 5.4 cm. Based on that, a repeat CAT scan of the abdomen was requested in the emergency and the patient was found to have a stable sized abdominal aortic aneurysm with aorto endograft stents placed. 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 There was diverticulosis. There was decrease in the size of the previously described pelvic hematoma. As such, the patient also had a stable hemoglobin. For now, the patient is on bicarb infusion. He was given D50 insulin regarding his hyperkalemia and he was also given 50 mEq of sodium bicarb. Subsequent potassium level dropped down to 5.3. His respiratory status is stable. The patient has no significant difficulties in breathing. No hypotension. No signs of any fluid overload. Patient was reevaluated today on 09/03/2023, patient was actually seen yesterday by Dr. Hall, and he did not feel the patient needed to be admitted to the ICU. Patient presented with acute kidney injury he is known to have history of chronic kidney disease, this time he has worsening kidney picture as well as hyperkalemia, anion gap metabolic acidosis, and the patient was seen by nephrology this morning, he is being considered for renal replacement therapy. Nephrology will arrange for a dialysis catheter placement, and I believe the patient will start on hemodialysis. Patient seems very comfortable on room air O2 sats is 95%, he is hemodynamically stable. WBC count is 10.9 hemoglobin 14.4 basic metabolic profile is normal potassium is down to 5.1 BUN is 84 creatinine 10.02 and the patient is oliguric Reevaluate today on 09/04/2023, patient is now on hemodialysis started yesterday 09/03/2023, urine output remains low, patient is still receiving IV fluids, patient is relatively asymptomatic, no cough no wheezing no shortness of breath. Patient is known to have history of chronic kidney disease stage III AA baseline creatinine ranging between 1.2-1.3. This admission the patient had acute on chronic kidney injury with hypertensive urgency, hyperkalemia, metabolic acidosis, and history of abdominal aortic aneurysm with previous endovascular stent graft repairCBC is relatively normal basic metabolic profile is normal BUN is 64 creatinine down to 7.97 Reevaluate today on 09/05/2023, patient remains on hemodialysis, doing well, feeling better, breathing easier, does not seem to be in any distress.On room air O2 sats of 94% blood pressure 142/85. The patient is seen today September 06, 2023 in follow-up on the regular medical floor. He is currently awake and alert. He did receive hemodialysis yesterday. He denies any worsening shortness of breath, cough or congestion. He is maintaining good O2 saturation in the 90s on room air. He is afebrile. Hemodyn amically stable. Sodium 132. Potassium 4.1. Bicarb 24. BUN 31. Creatinine 3.64. Glucose 80. He remains on heparin for DVT prophylaxis. Continued on oral diuretics. The patient is seen today September 07, 2023 in follow-up on the regular medical floor. He is presently resting comfortably in bed. Awake and alert in no acute distress. Currently receiving hemodialysis. He is maintaining good O2 saturation in the 90s on room air. Remains on heparin for DVT prophylaxis. Sodium 134. Potassium 4.4. Bicarb 25. BUN 2042. Creatinine 4.6. Glucose 87. The patient is seen today September 08, 2023 in follow-up on the regular medical floor. He is resting comfortably in bed. Awake and alert in no acute distress. No plans for hemodialysis today. He denies any shortness of breath, cough or c ongestion. He is maintaining good O2 saturations in the 90s on room air. He is afebrile. Hemodynamically stable. Sodium 128. Potassium 4.2. Bicarb 27. BUN 37. Creatinine 3.18. Glucose 104. Continued on heparin for DVT prophylaxis. Remains on oral diuretics. The patient is seen today September 09, 2023 in follow-up on the regular medical floor. He is currently resting comfortably in bed. Awake and alert in no acute distress. He denies any worsening shortness of breath, cough or congestion. Continues to maintain good O2 saturations in the 90s on room air. He has been afebrile. Hemodynamically stable. Sodium 128. Potassium 4.3. Bicarb 23. BUN 50. Creatinine 4.33. Glucose 80. Plan is for hemodialysis tomorrow. The patient is seen today September 10, 2023 in follow-up on the regular medical floor. He is currently resting in bed. Receiving hemodialysis. There is a goal of 1.5 L to be removed today. He is maintaining good O2 saturation in the 90s on room air. No new labs today. He remains on oral diuretics. Heparin for DVT prophylaxis. The patient is seen today September 11, 2023 in follow-up on the regular medical floor. He is currently sitting up in bed. Awake and alert in no acute distress. Maintaining good O2 saturation in the 90s on 2 L/min per nasal cannula. He remains on oral diuretics. He is to receive hemodialysis again today. The plan is to continue a Sunday schedule. Sodium 127. Potassium 4.0. Bicarb 29. BUN 32. Creatinine 3.31. Glucose 85. Heparin for DVT prophylaxis. Objective - Vital Signs Vital signs: Vital Signs Temp 98.5 F 09/11/23 07:13 Pulse 63 09/11/23 09:59 Resp 17 09/11/23 07:13 BP 122/66 09/11/23 09:59 Pulse Ox 95 09/11/23 07:13 FiO2 Intake & Output 09/10/23 09/11/23 09/11/23 18:59 06:59 18:59 Intake Total 120 Output Total 100 Balance 120 -100 Weight 73 kg 73 kg Intake: Oral 120 Output: Urine 100 Other: Voiding Method Indwelling Catheter Indwelling Catheter Indwelling Catheter - Exam GENERAL EXAM: Alert, 78-year-old male, receiving hemodialysis currently, on room air, in no apparent distress. HEAD: Normocephalic. EYES: Normal reaction of pupils, equal size. NOSE: Clear with pink turbinates. THROAT: No erythema or exudates. NECK: No masses, no JVD. Right IJ permacath in place. CHEST: No chest wall deformity. LUNGS: Equal air entry with crackles in the posterior bases. CVS: S1 and S2 normal with no audible murmur, regular rhythm. ABDOMEN: No hepatosplenomegaly, normal bowel sounds, no guarding or rigidity. SPINE: No scoliosis or deformity SKIN: No rashes CENTRAL NERVOUS SYSTEM: No focal deficits, tone is normal in all 4 extremities. EXTREMITIES: Right [id number] amputation. There is no peripheral edema. No clubbing, no cyanosis. Peripheral pulses are intact. - Labs CBC & Chem 7: 09/04/23 07:54 09/11/23 00:09 Labs: Abnormal Lab Results - Last 24 Hours (Table) 09/11/23 Range/Units 00:09 Sodium 127 L (137-145) mmol/L Chloride 96 L (98-107) mmol/L BUN 32 H (9-20) mg/dL Creatinine 3.31 H (0.66-1.25) mg/dL Calcium 7.5 L (8.4-10.2) mg/dL Total Protein 4.2 L (6.3-8.2) g/dL Albumin 2.2 L (3.5-5.0) g/dL Assessment and Plan Assessment: Acute on chronic kidney disease, initiated on hemodialysis September 03, 2023 Acute hyperkalemia, recovered, current potassium 4.0 Acute anion gap metabolic acidosis, recovered Pelvic hematoma related to a previous fall, follow-up CAT scan of the abdomen and pelvis shows decrease in size of the pelvic hematoma. No anatomic obstruction and there is no hydronephrosis. Altered mental status secondary to metabolic encephalopathy, improved Chronic atrial fibrillation, maintained on long-term anticoagulation with warfarin, rate is controlled for now History of fall with development of pelvic hematoma, hemoglobin is stable and CAT scan of the abdomen pelvis that showed no evidence of any endovascular leak Peripheral vascular disease with previous aorto by iliac stent grafting Abdominal aortic aneurysm, stable COPD, currently inactive and stable Coronary disease with previous coronary stenting Previous above-knee amputation on the right Hypertension Depression/PTSD Remote history of DVT Obstructive sleep apnea Diverticulosis 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 Plan: The patient was seen and evaluated Medications and labs reviewed Stable and on room air Receiving hemodialysis currently To be on a Sunday schedule Plan is for discharge to [facility] I have personally seen and examined the patient, performed the documentation and the assessment and plan as written. Number of minutes spent on the visit: 10.
[2023-09-11] MEDS ORDERED: carvediloL 12.5 MG TAB PO SCH (17:30)
--- NOTE | 2023-09-12 06:56 | P.DS ---
Providers Date of admission: 09/02/23 14:37 Expected date of discharge: 09/12/23 Attending physician: Luis Shahid MD Consults: 09/02/23 14:37 Consult Physician Routine Consulting Provider: Hattie Hall Consult Reason/Comments: Critical care Do you want consulting provider notified?: Already Contacted Consult Physician Urgent Consulting Provider: Kunal Avelar Consult Reason/Comments: Acute renal failure Do you want consulting provider notified?: Already Contacted 09/03/23 09:42 Consult Physician Stat Consulting Provider: Westley Jean Consult Reason/Comments: [facility] dialysis port Do you want consulting provider notified?: Yes 09/06/23 10:38 Consult Physician Routine Consulting Provider: Westley Jean Consult Reason/Comments: permanent dialysis catheter placement Do you want consulting provider notified?: Yes 09/11/23 02:22 Consult Physician Routine Consulting Provider: Ahsan Díaz Consult Reason/Comments: bradycardia, >2 sec pauses Do you want consulting provider notified?: Yes Primary care physician: [facility] Hospital Course: 78-year-old man, active smoker, history of A-fib, with significant history of right-sided AKA secondary to peripheral arterial disease, abdominal aortic aneurysm status post graft repair, recent mechanical fall resulting in pelvic hematoma, fractures, aortic graft leak, CAD status post stents, hypertension/hyperlipidemia presented for evaluation of confusion. In the emergency room, patient was afebrile, 179 of 124, heart rate 101, 98% on 2 L nasal cannula. CBC was remarkable for mild thrombocytopenia to 135. Basic metabolic panel showed sodium of 136, potassium is 6.5, CO2 of 16, anion gap of 16, BUN of 74, creatinine of 9.98. Liver function test showed bilirubin of 1.4, AST of 16. Troponin is 0.055. UA showed 2+ protein, trace glucose, small blood, trace leukocyte esterase, 23 white blood cells, 29 hyaline casts. Urine tox screen is positive for opiates. Repeat basic metabolic panel showed potassium of 6.1, creatinine of 9.97, CO2 of 14. Patient was initiated on a bicarb drip, and provided shifting agents by the emergency room. Nephrology, pulmonology were consulted. Pulmonology ordered CT of the abdomen/pelvis given patient's previous history of pelvic hematoma and in order to rule out bilateral hydronephrosis, and this was negative for hydronephrosis. Nephrology consulted, recommended HD. Vascular surgery consulted for HD access. Started on HD on 09/02, 09/03, 09/04, 09/06. Metoprolol switched to Coreg and titrated for better BP control. Hydralazine scheduled PO and PRN IV, Amlodipine added by Nephrology. PT and OT re-evaluated the patient on 09/09, functional status declined, plans for [facility]. 09/07 Nephrology recommends HD on Sunday. BP this morning 181/89. Case management on board to set up HD in the outpatient setting. Patient does not qualify for SNF but may require assistance with making it to dialysis. BMP Na 128, BUN 37, Cr 3.18, glu 104, Ca 7.7. Mag 1.9. 09/08 He reports neuropathic pain in his left foot. BP improved to 158/82. BMP Na 128, Cl 97, BUN 50, Cr 4.33, Ca 7.6. 09/09 No new complaints. Plans for HD today. Discussed with case management, functional status may have declined since the weekend, pending PT/OT evaluation for possible SNF. 09/10 Noted to be bradycardic on telemetry overnight with HR in the 20s with ectopy and possible pauses. He had no complaints when seen at that time. Noted to have a history of sleep apnea but does not wear his CPAP. Flat Bed Operator ordered a EKG and Echo and consulted Cardiology. EKG showed atrial fibrillation with ventricular rate of [address] and T wave abnormalities. Coreg decreased from 25 mg to 12.5 mg PO BID. Imdur 30 mg PO QD added for better BP control. Plans for HD today. BMP sows Na 127, Cl 96, BUN 32, Cr 3.31, Ca 7.5, alb 2.2. Mag 1.9. 09/11 Patient was seen and examined. He reports no complaints. HR as low as 40s overnight on Telemetry. Also noted pause of 2.5s. Also noted 5 beat NSVT. Echocardiogram shows EF 50-55% mild LV wall thickness, moderate to severe biatrial enlargement, trace MR. BP is 144/73 this morning. Plans for discharge today to [facility] if Cardiology cleared. General: non toxic, no distress, appears at stated age Derm: warm, dry Head: atraumatic, normocephalic, symmetric Eyes: EOMI, no lid lag, anicteric sclera Mouth: no lip lesion, mucus membranes moist Cardiovascular: Good distal perfusion in all 4 extremities, Normal S1 S2 moshe. Lungs: Breathing comfortably, no accessory muscle use, CTA BL Ext: no gross muscle atrophy, no edema, R AKA Psych: Alert, oriented, appropriate affect Discharge Diagnosis: Atrial fibrillation with slow ventricular rate MARIO on CKD Hypertensive urgency Elevated troponin Resolved: Metabolic acidosis This complex discharge took 35 minutes to complete and coordinate. Patient Condition at Discharge: Stable Plan - Discharge Summary Discharge Rx Participant: Yes New Discharge Prescriptions: New hydrALAZINE HCL [Apresoline] 100 mg PO TID PRN tab PRN Reason: Hypertension Torsemide [Demadex] 40 mg PO DAILY tab Isosorbide Mononitrate ER [Imdur] 30 mg PO DAILY tab Digoxin [Lanoxin] 125 mcg PO Q48H tab HYDROcodone/APAP 5-325MG [Lucas 5-325] 1 each PO Q6HR PRN #12 tab PRN Reason: Pain amLODIPine [Norvasc] 10 mg PO DAILY tab Calcium Acetate [PhosLo] 667 mg PO BID-W/MEALS tab Continue Tamsulosin [Flomax] 0.4 mg PO DAILY Cholecalciferol [Vitamin D3 (25 Mcg = 1000 Iu)] 25 mcg PO DAILY Apixaban [Eliquis] 2.5 mg PO BID Atorvastatin [Lipitor] 10 mg PO HS Discontinued Digoxin [Digitek] 125 mcg PO DAILY Metoprolol Tartrate [Lopressor] 50 mg PO DAILY lisinopriL [Zestril] 10 mg PO DAILY Discharge Medication List Apixaban [Eliquis] 2.5 mg PO BID 09/02/23 [History] Atorvastatin [Lipitor] 10 mg PO HS 09/02/23 [History] Cholecalciferol [Vitamin D3 (25 Mcg = 1000 Iu)] 25 mcg PO DAILY 09/02/23 [History] Tamsulosin [Flomax] 0.4 mg PO DAILY 09/02/23 [History] Calcium Acetate [PhosLo] 667 mg PO BID-W/MEALS tab 09/12/23 [Rx] Digoxin [Lanoxin] 125 mcg PO Q48H tab 09/12/23 [Rx] HYDROcodone/APAP 5-325MG [Lucas 5-325] 1 each PO Q6HR PRN #12 tab 09/12/23 [Rx] Isosorbide Mononitrate ER [Imdur] 30 mg PO DAILY tab 09/12/23 [Rx] Torsemide [Demadex] 40 mg PO DAILY tab 09/12/23 [Rx] amLODIPine [Norvasc] 10 mg PO DAILY tab 09/12/23 [Rx] hydrALAZINE HCL [Apresoline] 100 mg PO TID PRN tab 09/12/23 [Rx] Follow up Appointment(s)/Referral(s): [facility] [Primary Care Provider] - 1-2 days Johnny Siegel DO [STAFF PHYSICIAN] - 1 Week Chayo Juares MD [STAFF PHYSICIAN] - 1 Week Activity/Diet/Wound Care/Special Instructions: Diet: Renal Discharge Disposition: TRANSFER TO SNF/ECF
[2023-09-12 07:54] VITALS: BP 165/66; PULSE 61; RESP 17; TEMP 97.9
--- NOTE | 2023-09-12 09:58 | P.PN ---
Subjective Progress Note Date: 09/12/23 Reason for Consult (text): Bradycardia greater than 2 seconds History of present illness: This is a 78-year-old male patient of Dr. Siegel with past medical history of right wjwes-yza-arlo amputation, persistent atrial fibrillation, hypertension, hyperlipidemia, coronary artery disease with multiple stents in the past, chronic kidney disease, PAD with abdominal aortic aneurysm status post EVAR with additional PAD. We have been asked to evaluate the patient for bradycardia greater than 2 seconds. Patient was admitted to the hospital on 09/02/2023 and treated for acute kidney injury and starting hemodialysis on 09/02 and received hemodialysis yesterday. He is on oral diuretics in the form of torsemide 40 mg daily. Patient has been on Coreg 25 mg twice daily which was last given on 09/09 AM dose and has been discontinued due to bradycardia. Subsequently, Coreg 12.5 mg to start this evening. Patient was last seen in the office on 05/10/2023 and at that time the Lexiscan stress test did show a fixed inferior defect consistent with prior infarct as well as small size apical perfusion defect concerning for ischemia. Patient chose at that time as he was asymptomatic would pursue medical therapy. Patient denies having any chest pain or shortness of breath. EKG performed on 09/01 atrial fibrillation with ventricular rate of 88 bpm, repeat EKG performed on 09/10 reveals Chest x-ray: Performed on 09/06 reveals hemodialysis catheter overlying the cavoatrial junction. No pneumothorax. Small bilateral effusion correlate for mild venous congestion. Sodium 127, potassium 4, chloride 96, CO2 29, BUN 32 creatinine 3.31. Calcium 7.5. ALT liver function test are normal. Magnesium 1.9. Home cardiac medications: Eliquis 2.5 mg twice daily, atorvastatin 10 mg at bedtime, digoxin 125 mcg daily, lisinopril 10 mg daily, Lopressor 50 mg daily. Echocardiogram performed 03/27/2023: Normal LV systolic function. Inferior hypokinesis. Biatrial enlargement. Enlarged right ventricle. Lexiscan Cardiolite stress test performed in the office on 04/25/2023 revealed fixed inferior perfusion defect consistent with diaphragmatic attenuation artifact versus infarct. Reversible small size apical perfusion defect consistent with ischemia. Left ventricular EF 40%. 09/11 Patient is seen today in follow-up. Yesterday, there was concern that patient's heart rate was dipping down into the 30s in the afternoon and Coreg was discontinued until patient can be seen in the morning. Heart rate is now in the 60s and 70s. Patient denies having any palpitations no lightheadedness or dizziness. He remains in atrial fibrillation with PVCs. Physical examination: Gen: This is a 78-year-old male in no acute distress VS: reviewed blood pressure 143/75, heart rate 59, pulse ox 95% on 2 L nasal cannula, afebrile. HEENT: Head is atraumatic, normocephalic. Pupils equal, round. Sclerae is anicteric. NECK: Supple. No JVD. LUNGS: Clear to auscultation. No wheezes or rhonchi. No intercostal retractions. HEART: Irregular rate and rhythm. No murmur. ABDOMEN: Soft No tenderness. EXTREMITIES: Right gljyw-ktc-[id number] amputation. Left lower extremity pulses decreased. No edema. NEUROLOGICAL: Patient is awake, alert and oriented x3. Assessment: Persistent atrial fibrillation with bradycardia Acute kidney injury Acute hyperkalemia resolved Pelvic hematoma due to previous fall with decrease in size on CT Metabolic encephalopathy improved Hypertension Hyperlipidemia Coronary artery disease with multiple stents PAD with abdominal aortic aneurysm status post EVAR with additional PAD History of onrkd-hlh-gxrl amputation on the right Obstructive sleep apnea History of CVA Plan: Continue patient's home cardiac medications Decrease Coreg to 6.25 mg twice daily Decrease frequency of digoxin 125 mcg to every 48 hours Patient is cleared for discharge from cardiology and may follow-up with Dr. Siegel in 1 to 2 weeks. Nurse practitioner note has been reviewed, I agree with documented findings and plan of care. Patient was seen and examined. Objective - Vital Signs Vital signs: Vital Signs Temp 97.9 F 09/12/23 07:48 Pulse 61 09/12/23 07:48 Resp 17 09/12/23 07:48 BP 165/66 09/12/23 07:48 Pulse Ox 93 L 09/12/23 07:48 FiO2 Intake & Output 09/11/23 09/12/23 09/12/23 18:59 06:59 18:59 Intake Total 400 Output Total 100 950 Balance -100 -550 Weight 73 kg 35.5 kg Intake: Hemodialysis 400 Output: Urine 100 50 Hemodialysis 900 Other: Voiding Method Indwelling Catheter Indwelling Catheter - Labs CBC & Chem 7: 09/04/23 07:54 09/11/23 00:09
[2023-09-12] MEDS: carvediloL 6.25 MG TAB PO SCH (10:04)
--- NOTE | 2023-09-12 13:51 | P.PN ---
Subjective Progress Note Date: 09/12/23 I was asked to evaluate this patient for possible ICU transfer as the patient is suffering from an acute kidney injury. The patient is 80 years old and he has chronic atrial fibrillation. He also has history of abdominal aortic aneurysm status post endovascular stent graft repair and he has undergone a previous right-sided BKA. He is known also to have CAD, has coronary stents, hypertension hyperlipidemia. He was found by his granddaughter today to be quite confused and this was out of ordinary for the patient. For that reason, the patient was brought into the hospital and the patient was found to be in acute kidney injury. Immediately Schulz catheter was inserted and the patient was started on a bicarb infusion. In summary, the patient's creatinine is at 9.98 with a BUN of 74. Potassium level was at 6.5. Sodium levels at 136. Normal LFTs. UA showed 23 WBCs, 3 RBCs and the troponin was at 0.05 with a normal CPK of 40. White cell count was at 9.7 with a hemoglobin 15.8. Noted the patient's previous creatinines have been mildly elevated as the patient's creatinine from 08/28/2023 was 1.34 and 04/02/2023 the creatinine was at 1.2. His GFR was 59 and 55 respectively consistent with stage III chronic kidney disease. No intake of any nonsteroidal anti-inflammatory medication. No NDAYA inhibitor use. No other history is available. Note that the patient was in the hospital approximately 5 months ago and at that time the patient sustained a fall and he developed a pelvic hematoma based on the CAT scan of the abdomen and pelvis that was done at that time. Nevertheless he did not have any endovascular leaks. The CAT scan of the abdomen and pelvis that was done at that time, on 03/27/2023 showed a hematoma in the left pelvis measuring 11 cm in size and mass effect on the bladder. There was trace amount of hemorrhagic fluid within the pelvis. He also had some postsurgical changes in the Ortho by iliac area with endovascular stent grafting and the distal abdominal aortic aneurysm measuring 7.3 cm in size. There was an increase in the proximal abdominal aortic aneurysm in the proximal aspect of the stent and was measuring 5.4 cm. Based on that, a repeat CAT scan of the abdomen was requested in the emergency and the patient was found to have a stable sized abdominal aortic aneurysm with aorto endograft stents placed. 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 There was diverticulosis. There was decrease in the size of the previously described pelvic hematoma. As such, the patient also had a stable hemoglobin. For now, the patient is on bicarb infusion. He was given D50 insulin regarding his hyperkalemia and he was also given 50 mEq of sodium bicarb. Subsequent potassium level dropped down to 5.3. His respiratory status is stable. The patient has no significant difficulties in breathing. No hypotension. No signs of any fluid overload. Patient was reevaluated today on 09/03/2023, patient was actually seen yesterday by Dr. Hall, and he did not feel the patient needed to be admitted to the ICU. Patient presented with acute kidney injury he is known to have history of chronic kidney disease, this time he has worsening kidney picture as well as hyperkalemia, anion gap metabolic acidosis, and the patient was seen by nephrology this morning, he is being considered for renal replacement therapy. Nephrology will arrange for a dialysis catheter placement, and I believe the patient will start on hemodialysis. Patient seems very comfortable on room air O2 sats is 95%, he is hemodynamically stable. WBC count is 10.9 hemoglobin 14.4 basic metabolic profile is normal potassium is down to 5.1 BUN is 84 creatinine 10.02 and the patient is oliguric Reevaluate today on 09/04/2023, patient is now on hemodialysis started yesterday 09/03/2023, urine output remains low, patient is still receiving IV fluids, patient is relatively asymptomatic, no cough no wheezing no shortness of breath. Patient is known to have history of chronic kidney disease stage III AA baseline creatinine ranging between 1.2-1.3. This admission the patient had acute on chronic kidney injury with hypertensive urgency, hyperkalemia, metabolic acidosis, and history of abdominal aortic aneurysm with previous endovascular stent graft repairCBC is relatively normal basic metabolic profile is normal BUN is 64 creatinine down to 7.97 Reevaluate today on 09/05/2023, patient remains on hemodialysis, doing well, feeling better, breathing easier, does not seem to be in any distress.On room air O2 sats of 94% blood pressure 142/85. The patient is seen today September 06, 2023 in follow-up on the regular medical floor. He is currently awake and alert. He did receive hemodialysis yesterday. He denies any worsening shortness of breath, cough or congestion. He is maintaining good O2 saturation in the 90s on room air. He is afebrile. Hemodyn amically stable. Sodium 132. Potassium 4.1. Bicarb 24. BUN 31. Creatinine 3.64. Glucose 80. He remains on heparin for DVT prophylaxis. Continued on oral diuretics. The patient is seen today September 07, 2023 in follow-up on the regular medical floor. He is presently resting comfortably in bed. Awake and alert in no acute distress. Currently receiving hemodialysis. He is maintaining good O2 saturation in the 90s on room air. Remains on heparin for DVT prophylaxis. Sodium 134. Potassium 4.4. Bicarb 25. BUN 2042. Creatinine 4.6. Glucose 87. The patient is seen today September 08, 2023 in follow-up on the regular medical floor. He is resting comfortably in bed. Awake and alert in no acute distress. No plans for hemodialysis today. He denies any shortness of breath, cough or c ongestion. He is maintaining good O2 saturations in the 90s on room air. He is afebrile. Hemodynamically stable. Sodium 128. Potassium 4.2. Bicarb 27. BUN 37. Creatinine 3.18. Glucose 104. Continued on heparin for DVT prophylaxis. Remains on oral diuretics. The patient is seen today September 09, 2023 in follow-up on the regular medical floor. He is currently resting comfortably in bed. Awake and alert in no acute distress. He denies any worsening shortness of breath, cough or congestion. Continues to maintain good O2 saturations in the 90s on room air. He has been afebrile. Hemodynamically stable. Sodium 128. Potassium 4.3. Bicarb 23. BUN 50. Creatinine 4.33. Glucose 80. Plan is for hemodialysis tomorrow. The patient is seen today September 10, 2023 in follow-up on the regular medical floor. He is currently resting in bed. Receiving hemodialysis. There is a goal of 1.5 L to be removed today. He is maintaining good O2 saturation in the 90s on room air. No new labs today. He remains on oral diuretics. Heparin for DVT prophylaxis. The patient is seen today September 11, 2023 in follow-up on the regular medical floor. He is currently sitting up in bed. Awake and alert in no acute distress. Maintaining good O2 saturation in the 90s on 2 L/min per nasal cannula. He remains on oral diuretics. He is to receive hemodialysis again today. The plan is to continue a Sunday schedule. Sodium 127. Potassium 4.0. Bicarb 29. BUN 32. Creatinine 3.31. Glucose 85. Heparin for DVT prophylaxis. The patient is seen today September 12, 2023 in follow-up on the regular medical floor. He is awake and alert in no acute distress. Maintaining good O2 s aturations in the 90s on 2 L/min per nasal cannula. No IV fluids. Remains on heparin for DVT prophylaxis. No new labs today. Objective - Vital Signs Vital signs: Vital Signs Temp 97.9 F 09/12/23 07:48 Pulse 61 09/12/23 08:02 Resp 17 09/12/23 08:02 BP 165/66 09/12/23 07:48 Pulse Ox 93 L 09/12/23 07:48 FiO2 Intake & Output 09/11/23 09/12/23 09/12/23 18:59 06:59 18:59 Intake Total 400 Output Total 100 950 Balance -100 -550 Weight 73 kg 35.5 kg Intake: Hemodialysis 400 Output: Urine 100 50 Hemodialysis 900 Other: Voiding Method Indwelling Catheter Indwelling Catheter Indwelling Catheter - Exam GENERAL EXAM: Alert, 78-year-old male, on 2 L nasal cannula, in no apparent distress. HEAD: Normocephalic. EYES: Normal reaction of pupils, equal size. NOSE: Clear with pink turbinates. THROAT: No erythema or exudates. NECK: No masses, no JVD. Right IJ permacath in place. CHEST: No chest wall deformity. LUNGS: Equal air entry with crackles in the posterior bases. CVS: S1 and S2 normal with no audible murmur, regular rhythm. ABDOMEN: No hepatosplenomegaly, normal bowel sounds, no guarding or rigidity. SPINE: No scoliosis or deformity SKIN: No rashes CENTRAL NERVOUS SYSTEM: No focal deficits, tone is normal in all 4 extremities. EXTREMITIES: Right giyws-urx-nuiy amputation. There is no peripheral edema. No clubbing, no cyanosis. Peripheral pulses are intact. - Labs CBC & Chem 7: 09/04/23 07:54 09/11/23 00:09 Assessment and Plan Assessment: Acute on chronic kidney disease, initiated on hemodialysis September 03, 2023 Acute hyperkalemia, recovered, current potassium 4.0 Acute anion gap metabolic acidosis, recovered Pelvic hematoma related to a previous fall, follow-up CAT scan of the abdomen and pelvis shows decrease in size of the pelvic hematoma. No anatomic obstruction and there is no hydronephrosis. Altered mental status secondary to metabolic encephalopathy, improved Chronic atrial fibrillation, maintained on long-term anticoagulation with warfarin, rate is controlled for now History of fall with development of pelvic hematoma, hemoglobin is stable and CAT scan of the abdomen pelvis that showed no evidence of any endovascular leak Peripheral vascular disease with previous aorto by iliac stent grafting Abdominal aortic aneurysm, stable COPD, currently inactive and stable Coronary disease with previous coronary stenting Previous above-knee amputation on the right Hypertension Depression/PTSD Remote history of DVT Obstructive sleep apnea Diverticulosis 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 Plan: The patient was seen and evaluated Medications reviewed To continue hemodialysis in the outpatient setting Plan is for discharge to [facility] I have personally seen and examined the patient, performed the documentation and the assessment and plan as written. Number of minutes spent on the visit: 10.
[2023-09-13] MEDS ORDERED: DIGOXIN 125 MCG TAB PO SCH (09:00)
== END 2023-09-12 11:23 | DRG 682 ==
LOC: EC 10:52 → 3SCARD 14:37 → 4SSUR 09-05 22:21
PROVIDERS: ADMIT Internal Medicine; ATTEND Internal Medicine
PROC: 5A1D70Z Performance of Urinary Filtration, Intermittent, Less than 6 Hours Per Day (ICD-10-PCS; 2023-09-03)
PROC: 02HV33Z Insertion of Infusion Device into Superior Vena Cava, Percutaneous Approach (ICD-10-PCS; principal; 2023-09-03 14:35)
PROC: 06H033Z Insertion of Infusion Device into Inferior Vena Cava, Percutaneous Approach (ICD-10-PCS; 2023-09-07)
DX: N17.0 Acute kidney failure with tubular necrosis (principal); G93.41 Metabolic encephalopathy; I21.4 Non-ST elevation (NSTEMI) myocardial infarction; E87.21 Acute metabolic acidosis; I48.19 Other persistent atrial fibrillation; I47.20 Ventricular tachycardia, unspecified; D69.6 Thrombocytopenia, unspecified; E83.39 Other disorders of phosphorus metabolism; G62.9 Polyneuropathy, unspecified; I73.9 Peripheral vascular disease, unspecified; I71.40 Abdominal aortic aneurysm, without rupture, unspecified; J44.9 Chronic obstructive pulmonary disease, unspecified; N18.31 Chronic kidney disease, stage 3a; Z89.611 Acquired absence of right leg above knee; I12.9 Hypertensive chronic kidney disease with stage 1 through stage 4 chronic kidney disease, or unspecified chronic kidney disease; F32.A Depression, unspecified; Z66 Do not resuscitate; I16.0 Hypertensive urgency; E87.5 Hyperkalemia; E78.5 Hyperlipidemia, unspecified; I25.10 Atherosclerotic heart disease of native coronary artery without angina pectoris; I49.3 Ventricular premature depolarization; K21.9 Gastro-esophageal reflux disease without esophagitis; S30.0XXD Contusion of lower back and pelvis, subsequent encounter; H91.90 Unspecified hearing loss, unspecified ear; G47.33 Obstructive sleep apnea (adult) (pediatric); F43.10 Post-traumatic stress disorder, unspecified; K57.30 Diverticulosis of large intestine without perforation or abscess without bleeding; M19.90 Unspecified osteoarthritis, unspecified site; F17.200 Nicotine dependence, unspecified, uncomplicated; Z79.01 Long term (current) use of anticoagulants; Z79.899 Other long term (current) drug therapy; Z95.5 Presence of coronary angioplasty implant and graft; Z86.73 Personal history of transient ischemic attack (TIA), and cerebral infarction without residual deficits; Z86.718 Personal history of other venous thrombosis and embolism; Z86.79 Personal history of other diseases of the circulatory system; Z99.3 Dependence on wheelchair; Z71.3 Dietary counseling and surveillance
CPT/HCPCS: 36415; 36556; 36558; 51702; 70450; 71045; 71046; 74176; 80048; 80053; 80074; 80306; 81001; 82550; 83735; 84100; 84132; 84165; 84484; 85025; 85610; 85730; 86038; 86160; 86162; 86225; 86255; 86334; 86335; 86706; 90935; 93005; 93306; 93975; 94640; 94760; 96365; 96366; 96367; 96375; 96376; 99291

== ENCOUNTER 2023-09-17 05:06 | Inpatient (IN) | payer MEDICARE, BC ==
--- NOTE | 2023-09-17 05:31 | ED ---
SOB HPI - General Chief Complaint: Shortness of Breath Stated Complaint: Difficulty Breathing Time Seen by Provider: 09/17/23 05:13 Source: patient, EMS Mode of arrival: EMS Limitations: physical limitation (dyspnea) - History of Present Illness Initial Comments: this patient is a 78-year-old man who arrives from detention to have evaluation for shortness of breath. The patient states that this has come on very rapidly over the past couple of hours. Patient states he was trying to rest at the time. He denies having prior cold-like symptoms. He did have a little bit of cough and then he noticed that he was getting shortness of breath that was rapidly getting worse. The cough had just a little bit of clear sputum. He did not note fever or chills. The patient denies having chest pain. Patient has history of end-stage renal disease and takes dialysis Sunday, , Sunday. He states he had a normal dialysis session on Sunday. The patient has not noted swelling or pain in the legs. No change in bowel movements. MD Complaint: shortness of breath Onset/Timin -: hour(s) Severity: severe Severity scale (1-10): 0 Consistency: constant Improves With: nothing Worsens With: nothing Known History Of: other (renal failure on dialysis) Associated Symptoms: denies other symptoms Treatments Prior to Arrival: oxygen, bronchodilator - Related Data Home Medications Medication Instructions Recorded Confirmed Cholecalciferol [Vitamin D3 (25 25 mcg PO DAILY@79909/02/23 09/23/23 Mcg = 1000 Iu)] Tamsulosin [Flomax] 0.4 mg PO DAILY@79909/02/23 09/23/23 Atorvastatin [Lipitor] 10 mg PO HS@209909/17/23 09/23/23 HYDROcodone/APAP 5-325MG [[place] 1 tab PO Q6H PRN 09/17/23 09/23/23 5-325] Isosorbide Mononitrate ER [Imdur] 30 mg PO DAILY@79909/17/23 09/23/23 Magnesium Hydroxide [Milk of 7,200 mg PO Q48H PRN 09/17/23 09/23/23 Magnesia Concentrate] Na Phos,M-B/Na Phos,Di-Ba [Fleet 133 ml RECTAL DAILY PRN 09/17/23 09/23/23 Adult] Nepro 237 ml PO SUMOWEFR@0800 09/17/23 09/23/23 Nepro 237 ml PO TUTHSA@0600 09/17/23 09/23/23 Torsemide [Demadex] 40 mg PO DAILY@0800 09/17/23 09/23/23 amLODIPine [Norvasc] 10 mg PO DAILY@0800 09/17/23 09/23/23 bisacodyL [Dulcolax] 10 mg RECTAL DAILY PRN 09/17/23 09/23/23 hydrALAZINE HCL [Apresoline] 100 mg PO TID@09/17/23 09/23/23 Apixaban [Eliquis Starter Pack See Taper PO DIRECTED 09/23/23 09/23/23 (for VTE)] Menthol-Zinc Oxide Oint 1 applic TOPICAL BID 09/23/23 09/23/23 [Calmoseptine Ointment] Previous Rx's Medication Instructions Recorded Calcium Acetate [PhosLo] 667 mg PO BID-W/MEALS tab 09/12/23 Darbepoetin Kalin [Aranesp] 40 mcg SQ Q7D each 09/21/23 carvediloL [Coreg*] 12.5 mg PO BID-W/MEALS #0 tab 09/21/23 Allergies Allergy/AdvReac Type Severity Reaction Status Date / Time No Known Allergies Allergy Verified 09/23/23 09:16 Review of Systems ROS Statement: Those systems with pertinent positive or pertinent negative responses have been documented in the HPI. ROS Other: All systems not noted in ROS Statement are negative. Constitutional: Denies: fever, chills Respiratory: Reports: cough, dyspnea. Denies: hemoptysis Cardiovascular: Reports: palpitations. Denies: chest pain, edema, syncope Gastrointestinal: Denies: abdominal pain, nausea, vomiting, diarrhea Genitourinary: Denies: dysuria, hematuria Musculoskeletal: Denies: back pain Skin: Denies: rash Neurological: Denies: headache, weakness, numbness Psychiatric: Reports: anxiety Past Medical History Past Medical History: Atrial Fibrillation, Deep Vein Thrombosis (DVT), GERD/Reflux, Hearing Disorder / Deafness, Hyperlipidemia, Osteoarthritis (OA), Prostate Disorder, Sleep Apnea/CPAP/BIPAP Additional Past Medical History / Comment(s): DVT Last Myocardial Infarction Date:: UNKNOWN History of Any Multi-Drug Resistant Organisms: None Reported Past Surgical History: Heart Catheterization With Stent Additional Past Surgical History / Comment(s): Femoral bypass right and left, removed steel from right lung and retired up diaphram, right above knee amputee Past Anesthesia/Blood Transfusion Reactions: No Reported Reaction Date of Last Stent Placement:: UNKNOWN Past Psychological History: Depression, PTSD Smoking Status: Current some day smoker Past Alcohol Use History: Occasional Past Drug Use History: None Reported - Past Family History Mother Family Medical History: Myocardial Infarction ([place]) Father Family Medical History: Dementia General Exam General appearance: alert, in distress Head exam: Present: atraumatic, normocephalic Eye exam: Present: normal appearance. Absent: scleral icterus, conjunctival injection Neck exam: Present: normal inspection Respiratory exam: Present: respiratory distress, wheezes, rhonchi, accessory muscle use. Absent: stridor, chest wall tenderness, decreased breath sounds, prolonged expiratory Cardiovascular Exam: Present: normal rhythm, tachycardia, systolic murmur. Absent: diastolic murmur, rubs, gallop GI/Abdominal exam: Present: soft. Absent: distended, tenderness, guarding, rebound, rigid, mass Extremities exam: Present: normal inspection, normal capillary refill. Absent: pedal edema, calf tenderness Back exam: Present: normal inspection. Absent: CVA tenderness (R), CVA tenderness (L) Neurological exam: Present: alert Skin exam: Present: warm, dry, intact, normal color. Absent: rash Course Vital Signs 09/17/23 09/17/23 09/17/23 05:08 05:23 05:28 Temperature 98.0 F Pulse Rate 121 H 104 H Pulse Rate [ Cyber Security Manager ] Respiratory 24 Rate Blood Pressure 191/95 177/105 Blood Pressure [Left Arm] O2 Sat by Pulse 96 95 Oximetry 09/17/23 09/17/23 09/17/23 05:38 05:44 06:01 Temperature Pulse Rate 113 H 89 98 Pulse Rate [ Cyber Security Manager ] Respiratory 20 18 18 Rate Blood Pressure 130/72 136/65 139/83 Blood Pressure [Left Arm] O2 Sat by Pulse 93 L 95 96 Oximetry 09/17/23 09/17/23 09/17/23 06:38 07:15 07:30 Temperature Pulse Rate 87 89 82 Pulse Rate [ Cyber Security Manager ] Respiratory 18 15 14 Rate Blood Pressure 133/77 119/85 152/84 Blood Pressure [Left Arm] O2 Sat by Pulse 97 95 94 L Oximetry 09/17/23 09/17/23 09/17/23 07:45 08:00 08:15 Temperature Pulse Rate 94 91 81 Pulse Rate [ Cyber Security Manager ] Respiratory 14 16 14 Rate Blood Pressure 136/91 132/77 146/90 Blood Pressure [Left Arm] O2 Sat by Pulse 92 L 93 L 94 L Oximetry 09/17/23 09/17/23 09/17/23 08:30 13:30 15:00 Temperature Pulse Rate 82 59 L 64 Pulse Rate [ Cyber Security Manager ] Respiratory 14 18 20 Rate Blood Pressure 148/96 131/70 134/79 Blood Pressure [Left Arm] O2 Sat by Pulse 94 L 98 99 Oximetry 09/17/23 09/17/23 09/17/23 17:58 19:31 20:23 Temperature 98.0 F Pulse Rate 80 73 Pulse Rate [ 73 Cyber Security Manager ] Respiratory 20 20 18 Rate Blood Pressure 147/81 140/73 Blood Pressure 128/76 [Left Arm] O2 Sat by Pulse 98 96 Oximetry 09/17/23 09/17/23 09/17/23 20:32 20:40 22:44 Temperature 97.0 F L Pulse Rate 73 80 Pulse Rate [ 78 Cyber Security Manager ] Respiratory 20 17 14 Rate Blood Pressure 142/92 128/60 Blood Pressure 145/92 [Left Arm] O2 Sat by Pulse 98 94 L 95 Oximetry 09/18/23 09/18/23 09/18/23 00:35 02:57 04:41 Temperature Pulse Rate 71 70 67 Pulse Rate [ Cyber Security Manager ] Respiratory 18 18 18 Rate Blood Pressure 139/83 139/84 145/72 Blood Pressure [Left Arm] O2 Sat by Pulse 96 97 96 Oximetry 09/18/23 09/18/23 09/18/23 05:20 06:36 07:45 Temperature 97.7 F Pulse Rate 70 67 62 Pulse Rate [ Cyber Security Manager ] Respiratory 20 20 20 Rate Blood Pressure 141/79 154/82 139/90 Blood Pressure [Left Arm] O2 Sat by Pulse 97 97 97 Oximetry 09/18/23 09/18/23 09/18/23 08:05 10:04 11:05 Temperature 97.6 F Pulse Rate 75 77 65 Pulse Rate [ Cyber Security Manager ] Respiratory 21 18 19 Rate Blood Pressure 143/82 139/66 136/64 Blood Pressure [Left Arm] O2 Sat by Pulse 94 L 95 95 Oximetry 09/18/23 09/18/23 12:01 13:51 Temperature 97.8 F Pulse Rate 80 77 Pulse Rate [ Cyber Security Manager ] Respiratory 18 16 Rate Blood Pressure 140/82 132/75 Blood Pressure [Left Arm] O2 Sat by Pulse 96 96 Oximetry - Reevaluation(s) Reevaluation #1: 09/17/23 07:[address] Avelar to arrange dialysis for this patient. Medical Decision Making - Medical Decision Making the patient is 78-year-old man arriving from detention and appears to be in hypertensive emergency. The patient is dyspneic, tachypneic, tachycardic with hypertension and diaphoretic. the patient is placed on 2 BiPAP and is given aliquots of IV nitroglycerin by myself with constant monitoring of the blood pressure. The patient had nitroglycerin drip initiated. With administration nitroglycerin the patient did begin to have rapid improvement in symptoms. The diaphoresis resolved. The patient's blood pressure and heart rate also improved. The patient also had improvement in respiratory rate. The patient admitted. Case discussed with nephrology to arrange dialysis. Patient will have cardiology consultation related to hypertensive emergency. The patient had chest x-ray that I interpreted as showing congestive heart failure. Was pt. sent in by a medical professional or institution (, PA, [facility], urgent care, hospital, or detention...) When possible be specific @ -[No] Did you speak to anyone other than the patient for history (EMS, parent, family, police, friend...)? What history was obtained from this source @ -[Must give history Did you review nursing and triage notes (agree or disagree)? Why? @ -[I reviewed and agree with nursing and triage notes] Were old charts reviewed (outside hosp., previous admission, EMS record, old EKG, old radiological studies, urgent care reports/EKG's, detention records)? Report findings @ -[Yes old charts were reviewed] Differential Diagnosis (chest pain, altered mental status, abdominal pain women, abdominal pain men, vaginal bleeding, weakness, fever, dyspnea, syncope, headache, dizziness, GI bleed, back pain, seizure, CVA, palpatations, mental health, musculoskeletal)? @ -[Differential Dyspnea: Coronary syndrome, arrhythmia, tamponade, asthma, COPD, pulmonary embolism, pneumonia, pneumothorax, pulmonary effusion, anaphylaxis, diabetic ketoacidosis, flailed chest, pulmonary contusion, diaphragmatic rupture, anemia, neuromuscular, this is not meant to be an all-inclusive list. EKG interpreted by me (3pts min.). @ -[Interpreted as above] X-rays interpreted by me (1pt min.). @ -[I interpreted as above CT interpreted by me (1pt min.). @ -[None done] U/S interpreted by me (1pt. min.). @ -[None done] What testing was considered but not performed or refused? (CT, X-rays, U/S, labs)? Why? @ -[None] What meds were considered but not given or refused? Why? @ -[None] Did you discuss the management of the patient with other professionals (professionals i.e. , PA, [facility], lab, RT, psych nurse, social insurance adviser, flatcar whacker, teacher, inspectors and regulatory officers, hospice case manager)? Give summary @ -[I discussed the patient's case with the admitting physician, with the on- call risk control product liability director and also with cardiology and treatment recommendations are incorporated Was smoking cessation discussed for >3mins.? @ -[No] Was critical care preformed (if so, how long)? @ -[yes, 45 minutes Were there social determinants of health that impacted care today? How? (Homelessness, low income, unemployed, alcoholism, drug addiction, transportation, low edu. Level, literacy, decrease access to med. care, correction, rehab)? @ -[No] Was there de-escalation of care discussed even if they declined (Discuss DNR or withdrawal of care, Hospice)? DNR status @ -[No] What co-morbidities impacted this encounter? (DM, HTN, Smoking, COPD, CAD, Cancer, CVA, ARF, Chemo, Hep., AIDS, mental health diagnosis, sleep apnea, morbid obesity)? @ -[Hypertension, end-stage renal disease, peripheral vascular disease Was patient admitted / discharged? Hospital course, mention meds given and route, prescriptions, significant lab abnormalities, going to OR and other pertinent info. @ -[Patient is admitted, he will have dialysis, patient to also have consultation with specialists including nephrology, cardiology Undiagnosed new problem with uncertain prognosis? @ -[No] Drug Therapy requiring intensive monitoring for toxicity (Heparin, Nitro, Insulin, Cardizem)? @ -[No] Were any procedures done? @ -[No] Diagnosis/symptom? @ -[Acute hypertensive emergency Exacerbation of congestive heart failure Acute, or Chronic, or Acute on Chronic? @ -[Acute Uncomplicated (without systemic symptoms) or Complicated (systemic symptoms)? @ -[Complicated by severe dyspnea Side effects of treatment? @ -[No] Exacerbation, Progression, or Severe Exacerbation? @ -[No] Poses a threat to life or bodily function? How? (Chest pain, [place], [place], pneumonia, PE, COPD, DKA, ARF, appy, cholecystitis, CVA, Diverticulitis, Homicidal, Suicidal, threat to staff... and all critical care pts) @ -Yes there is risk of respiratory failure and - Lab Data Result diagrams: 09/20/23 09:50 09/20/23 15:10 Lab Results 09/17/23 09/17/23 09/17/23 Range/Units 05:21 05:21 05:21 WBC 11.6 H (3.8-10.6) k/uL RBC 3.84 L (4.30-5.90) m/uL Hgb 11.3 L (13.0-17.5) gm/dL Hct 35.5 L (39.0-53.0) % MCV 92.4 (80.0-100.0) fL MCH 29.5 (25.0-35.0) pg MCHC 31.9 (31.0-37.0) g/dL RDW 13.6 (11.5-15.5) % Plt Count 186 (150-450) k/uL MPV 8.2 Neutrophils % 79 % Lymphocytes % 10 % Monocytes % 6 % Eosinophils % 2 % Basophils % 1 % Neutrophils # 9.2 H (1.3-7.7) k/uL Lymphocytes # 1.2 (1.0-4.8) k/uL Monocytes # 0.7 (0-1.0) k/uL Eosinophils # 0.3 (0-0.7) k/uL Basophils # 0.1 (0-0.2) k/uL PT (10.0-12.5) sec INR (<1.2) APTT (22.0-30.0) sec D-Dimer (<0.60) mg/L FEU Sodium 131 L (137-145) mmol/L Potassium 4.8 (3.5-5.1) mmol/L Chloride 98 (98-107) mmol/L Carbon Dioxide 28 (22-30) mmol/L Anion Gap 5 mmol/L BUN 33 H (9-20) mg/dL Creatinine 4.02 H (0.66-1.25) mg/dL Est GFR (CKD-EPI)AfAm 16 (>60 ml/min/1.73 sqM) Est GFR (CKD-EPI)NonAf 14 (>60 ml/min/1.73 sqM) Glucose 130 H (74-99) mg/dL Plasma Lactic Acid Aiden 0.6 L (0.7-2.0) mmol/L Calcium 8.6 (8.4-10.2) mg/dL Phosphorus (2.5-4.5) mg/dL Magnesium 2.0 (1.6-2.3) mg/dL Total Bilirubin 1.0 (0.2-1.3) mg/dL AST 22 (17-59) U/L ALT 11 (4-49) U/L Alkaline Phosphatase 59 (38-126) U/L Troponin I (0.000-0.034) ng/mL NT-Pro-B Natriuret Pep 04928 pg/mL Total Protein 5.3 L (6.3-8.2) g/dL Albumin 3.0 L (3.5-5.0) g/dL Digoxin ng/mL 09/17/23 09/17/23 09/17/23 Range/Units 05:21 05:21 05:51 WBC (3.8-10.6) k/uL RBC (4.30-5.90) m/uL Hgb (13.0-17.5) gm/dL Hct (39.0-53.0) % MCV (80.0-100.0) fL MCH (25.0-35.0) pg MCHC (31.0-37.0) g/dL RDW (11.5-15.5) % Plt Count (150-450) k/uL MPV Neutrophils % % Lymphocytes % % Monocytes % % Eosinophils % % Basophils % % Neutrophils # (1.3-7.7) k/uL Lymphocytes # (1.0-4.8) k/uL Monocytes # (0-1.0) k/uL Eosinophils # (0-0.7) k/uL Basophils # (0-0.2) k/uL PT (10.0-12.5) sec INR (<1.2) APTT (22.0-30.0) sec D-Dimer (<0.60) mg/L FEU Sodium (137-145) mmol/L Potassium (3.5-5.1) mmol/L Chloride (98-107) mmol/L Carbon Dioxide (22-30) mmol/L Anion Gap mmol/L BUN (9-20) mg/dL Creatinine (0.66-1.25) mg/dL Est GFR (CKD-EPI)AfAm (>60 ml/min/1.73 sqM) Est GFR (CKD-EPI)NonAf (>60 ml/min/1.73 sqM) Glucose (74-99) mg/dL Plasma Lactic Acid Aiden (0.7-2.0) mmol/L Calcium (8.4-10.2) mg/dL Phosphorus 4.5 (2.5-4.5) mg/dL Magnesium (1.6-2.3) mg/dL Total Bilirubin (0.2-1.3) mg/dL AST (17-59) U/L ALT (4-49) U/L Alkaline Phosphatase (38-126) U/L Troponin I 0.018 (0.000-0.034) ng/mL NT-Pro-B Natriuret Pep pg/mL Total Protein (6.3-8.2) g/dL Albumin (3.5-5.0) g/dL Digoxin 0.5 ng/mL 09/17/23 Range/Units 06:07 WBC (3.8-10.6) k/uL RBC (4.30-5.90) m/uL Hgb (13.0-17.5) gm/dL Hct (39.0-53.0) % MCV (80.0-100.0) fL MCH (25.0-35.0) pg MCHC (31.0-37.0) g/dL RDW (11.5-15.5) % Plt Count (150-450) k/uL MPV Neutrophils % % Lymphocytes % % Monocytes % % Eosinophils % % Basophils % % Neutrophils # (1.3-7.7) k/uL Lymphocytes # (1.0-4.8) k/uL Monocytes # (0-1.0) k/uL Eosinophils # (0-0.7) k/uL Basophils # (0-0.2) k/uL PT 11.6 (10.0-12.5) sec INR 1.1 (<1.2) APTT 24.3 (22.0-30.0) sec D-Dimer 10.12 H (<0.60) mg/L FEU Sodium (137-145) mmol/L Potassium (3.5-5.1) mmol/L Chloride (98-107) mmol/L Carbon Dioxide (22-30) mmol/L Anion Gap mmol/L BUN (9-20) mg/dL Creatinine (0.66-1.25) mg/dL Est GFR (CKD-EPI)AfAm (>60 ml/min/1.73 sqM) Est GFR (CKD-EPI)NonAf (>60 ml/min/1.73 sqM) Glucose (74-99) mg/dL Plasma Lactic Acid Aiden (0.7-2.0) mmol/L Calcium (8.4-10.2) mg/dL Phosphorus (2.5-4.5) mg/dL Magnesium (1.6-2.3) mg/dL Total Bilirubin (0.2-1.3) mg/dL AST (17-59) U/L ALT (4-49) U/L Alkaline Phosphatase (38-126) U/L Troponin I (0.000-0.034) ng/mL NT-Pro-B Natriuret Pep pg/mL Total Protein (6.3-8.2) g/dL Albumin (3.5-5.0) g/dL Digoxin ng/mL - EKG Data -: EKG Interpreted by Me EKG shows normal: axis (left axis deviation), intervals (normal) Rate: tachycardia (rate 112 bpm) Interpretation: nonspecific ST-T wave changes, other (aatrial fibrillation) Disposition Clinical Impression: Renal failure, Volume overload, Hypertensive emergency Disposition: ADMITTED IP TO THIS [facility] Condition: Stable Is patient prescribed a controlled substance at d/c from ED?: No
[2023-09-17] MEDS: NITROGLYCERIN-D5W PMX 50 MG in DEXTROSE/WATER 1 250ML.BAG IV ONE (05:32)
[2023-09-17] MEDS: MORPHINE SULFATE 4 MG/ML SYRINGE IVP STA (05:36)
[2023-09-17 05:46] LABS: Basophils # (A) 0.1 k/uL (0-0.2); Basophils % (A) 1 %; Eosinophils # (A) 0.3 k/uL (0-0.7); Eosinophils % (A) 2 %; HCT 35.5 % (39.0-53.0); HGB 11.3 gm/dL (13.0-17.5); Lymphocytes # (A) 1.2 k/uL (1.0-4.8); Lymphocytes % (A) 10 %; MCH 29.5 pg (25.0-35.0); MCHC 31.9 g/dL (31.0-37.0); MCV 92.4 fL (80.0-100.0); Mean Platelet Volume 8.2; Monocytes # (A) 0.7 k/uL (0-1.0); Monocytes % (A) 6 %; Neutrophils # (A) 9.2 k/uL (1.3-7.7); Neutrophils % (A) 79 %; Platelet Count 186 k/uL (150-450); RBC 3.84 m/uL (4.30-5.90); RDW 13.6 % (11.5-15.5); WBC 11.6 k/uL (3.8-10.6)
[2023-09-17 06:05] LABS: ALT 11 U/L (4-49); AST 22 U/L (17-59); African American GFR (CKD) 16 (>60 ml/min/1.73 sqM); Alkaline Phosphatase 59 U/L (38-126); Anion Gap 5 mmol/L; Blood Urea Nitrogen 33 mg/dL (9-20); Calcium 8.6 mg/dL (8.4-10.2); Carbon Dioxide 28 mmol/L (22-30); Chloride 98 mmol/L (98-107); Glucose 130 mg/dL (74-99); Non-African American GFR(CKD) 14 (>60 ml/min/1.73 sqM); Potassium 4.8 mmol/L (3.5-5.1); Sodium 131 mmol/L (137-145); Total Protein 5.3 g/dL (6.3-8.2)
--- NOTE | 2023-09-17 06:12 | XR ---
EXAMINATION TYPE: XR chest 1V portable DATE OF EXAM: 09/17/2023 COMPARISON: Prior chest x-ray September 07, 2023 HISTORY: Dyspnea TECHNIQUE: Single frontal view of the chest is obtained. FINDINGS: Stable right internal jugular large-bore dialysis catheter. The cardiac silhouette size is upper limits of normal. Mild central vascular congestion is present with small to tiny bilateral pl eural effusions. The osseous structures are intact. IMPRESSION: Findings are consistent with fluid overload state slightly more prominent versus most re cent prior.
[2023-09-17 06:13] LABS: NT-Pro-B-Type Natriuretic Pept 26900 pg/mL
[2023-09-17 06:42] LABS: INR 1.1 (<1.2); Partial Thromboplastin Time 24.3 sec (22.0-30.0); Prothrombin Time 11.6 sec (10.0-12.5)
--- NOTE | 2023-09-17 08:16 | US ---
EXAMINATION TYPE: US venous doppler duplex LE BI DATE OF EXAM: 09/17/2023 8:01 AM COMPARISON: NONE CLINICAL INDICATION: Male, 78 years old with history of possible DVT, edema; Possible DVT, extensive vacular surgery, amputee at distal rt thigh SIDE PERFORMED: Bilateral TECHNIQUE: The lower extremity deep venous system is examined utilizing real time linear array sonog elias with graded compression, doppler sonography and color-flow sonography. VESSELS IMAGED: Common Femoral Vein Deep Femoral Vein Greater Saphenous Vein * Femoral Vein Popliteal Vein Proximal Calf Veins (* superficial vessels) Right Leg: thick richmond evidence of chronic DVT Left Leg: non-occlusive DVT distal fem v. DVT noted throughout deep venous structures. Bilat EIA aneurysms? Exam very limited by calcified vessels, trauma, vascular interventions IMPRESSION: 1. Findings are positive for acute nonocclusive DVT distal left superficial femoral vein.. 2. Extensive DVT involving the right lower extremity . 3. 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
[2023-09-17] MEDS ORDERED: hydrALAZINE HCL 50 MG TAB PO PRN (08:17)
[2023-09-17] MEDS ORDERED: HEPARIN SODIUM 1,000 UN/ML (10ML VL) IV PRN (08:59)
[2023-09-17] MEDS ORDERED: carvediloL 6.25 MG TAB PO SCH (09:00)
[2023-09-17] MEDS ORDERED: amLODIPine 10 MG TAB PO SCH (09:00)
[2023-09-17] MEDS ORDERED: TORSEMIDE 20 MG TAB PO SCH (09:00)
[2023-09-17] MEDS ORDERED: APIXABAN 2.5 MG TABLET PO SCH ×2 (09:00)
[2023-09-17] MEDS ORDERED: hydrALAZINE HCL 25 MG TAB PO PRN (09:02)
--- NOTE | 2023-09-17 09:08 | P.NPCON ---
History of Present Illness - Reason for Consult end stage renal disease - History of Present Illness Reason for consultation: End-stage renal disease History of present illness: Patient is a 78-year-old male seen in renal consultation for end-stage renal disease. He is maintained on hemodialysis on Sunday schedule via permacath. Patient was recently started on hemodialysis on September 03, 2023. During that admission creatinine was over 10. No hydronephrosis was noted on imaging. Patient is not a very reliable historian. History was obtained mostly from the chart. Patient came to the hospital due to shortness of breath. It is noted the patient developed shortness of breath rapidly overnight and was sent to the hospital. Last hemodialysis was on Sunday. Currently is on a nitro drip. He is on a nasal cannula. Patient states he feels much better and shortness of breath has improved significantly. He is scheduled to undergo CTA today. Lower extremity Doppler ultrasound showed acute nonocclusive DVT in the distal left superficial femoral vein. Extensive DVT also noted in the right lower extremity. Patient also has history of peripheral arterial disease with history of femoral bypass. Patient has history of right [id number] amputation. Recent echocardiogram showed moderate to severe bilateral atrial enlargement and trace mitral regurgitation. EF 50 to 55%. Vital signs are stable. General: No acute distress. HEENT: Head exam is unremarkable. On nasal cannula. LUNGS: No audible rhonchi or wheezes. HEART: Rate and Rhythm are regular. ABDOMEN: Nontender. EXTREMITITES: Right AKA. Past Medical History Past Medical History: Atrial Fibrillation, Deep Vein Thrombosis (DVT), GERD/Reflux, Hearing Disorder / Deafness, Hyperlipidemia, Osteoarthritis (OA), Prostate Disorder, Sleep Apnea/CPAP/BIPAP Additional Past Medical History / Comment(s): DVT Last Myocardial Infarction Date:: UNKNOWN History of Any Multi-Drug Resistant Organisms: None Reported Past Surgical History: Heart Catheterization With Stent Additional Past Surgical History / Comment(s): Femoral bypass right and left, removed steel from right lung and retired up diaphram, right above knee amputee Past Anesthesia/Blood Transfusion Reactions: No Reported Reaction Date of Last Stent Placement:: UNKNOWN Past Psychological History: Depression, PTSD Smoking Status: Current some day smoker Past Alcohol Use History: Occasional Past Drug Use History: None Reported - Past Family History Mother Family Medical History: Myocardial Infarction ([place]) Father Family Medical History: Dementia Medications and Allergies Home Medications Medication Instructions Recorded Confirmed Type Apixaban [Eliquis] 2.5 mg PO BID 09/02/23 09/02/23 History Atorvastatin [Lipitor] 10 mg PO HS 09/02/23 09/02/23 History Cholecalciferol [Vitamin D3 (25 25 mcg PO DAILY 09/02/23 09/02/23 History Mcg = 1000 Iu)] Tamsulosin [Flomax] 0.4 mg PO DAILY 09/02/23 09/02/23 History Calcium Acetate [PhosLo] 667 mg PO BID-W/MEALS tab 09/12/23 Rx Digoxin [Lanoxin] 125 mcg PO Q48H tab 09/12/23 Rx HYDROcodone/APAP 5-325MG [[place] 1 each PO Q6HR PRN #12 tab 09/12/23 Rx 5-325] Isosorbide Mononitrate ER [Imdur] 30 mg PO DAILY tab 09/12/23 Rx Torsemide [Demadex] 40 mg PO DAILY tab 09/12/23 Rx amLODIPine [Norvasc] 10 mg PO DAILY tab 09/12/23 Rx carvediloL [Coreg] 6.25 mg PO BID #60 tablet 09/12/23 Rx hydrALAZINE HCL [Apresoline] 100 mg PO TID PRN tab 09/12/23 Rx Allergies Allergy/AdvReac Type Severity Reaction Status Date / Time No Known Allergies Allergy Verified 09/17/23 05:13 Physical Exam Vitals: Vital Signs Temp Pulse Resp BP Pulse Ox 09/17/23 08:30 82 14 148/96 94 L 09/17/23 08:15 81 14 146/90 94 L 09/17/23 08:00 91 16 132/77 93 L 09/17/23 07:45 94 14 136/91 92 L 09/17/23 07:30 82 14 152/84 94 L 09/17/23 07:15 89 15 119/85 95 09/17/23 06:38 87 18 133/77 97 09/17/23 06:01 98 18 139/83 96 09/17/23 05:44 89 18 136/65 95 09/17/23 05:38 113 H 20 130/72 93 L 09/17/23 05:28 104 H 24 177/105 95 09/17/23 05:23 24 04/08/24 05:08 98.0 F 121 H 24 191/95 96 Intake and Output 09/16/23 09/17/23 09/17/23 22:59 06:59 14:59 Intake Total 0.975 Balance 0.975 Intake: Intake, IV Titration 0.975 Amount Nitroglycerin-D5w Pmx 50 0.975 mg In Dextrose/Water 1 250ml.bag @ 5 MCG/MIN 1.5 mls/hr IV .Q24H ONE Rx#: [id number] Other: Weight 81.647 kg Results - Lab Results Most recent lab results Calcium 8.6 mg/dL (8.4-10.2) 09/17/23 05:21 Magnesium 2.0 mg/dL (1.6-2.3) 09/17/23 05:21 09/17/23 05:21 09/17/23 05:21 Assessment and Plan Plan: Assessment: 1. End-stage renal disease maintained on hemodialysis on Sunday schedule via permacath. 2. Acute hypoxic respiratory failure. Component of volume overload. Rule out PE. 3. Peripheral arterial disease with history of right vqeyg-fxh-vjap amputation. 4. Hypertensive urgency. Status post nitro drip. 5. Chronic kidney disease mineral bone disease maintained on PhosLo. 6. Volume overload. 7. Bilateral lower extremity DVTs maintained on heparin drip. Kimberleyquis is noted in his home medication list but unclear if he has been taking it or not. Hematology is consulted. Plan: Hemodialysis today. Another treatment tomorrow per his outpatient schedule. Follow-up CTA. Check phosphorus level. Follow-up echocardiogram. Thank you for the consultation. I will continue to follow the patient with you during his hospital stay.
--- NOTE | 2023-09-17 09:29 | CT ---
EXAMINATION TYPE: CT chest angio for PE DATE OF EXAM: 09/17/2023 COMPARISON: None HISTORY: PE CT DLP: 402.5 mGycm Automated exposure control for dose reduction was used. CONTRAST: CT Chest for pulmonary embolism performed with without and with IV Contrast, patient injected with 10 0 ml mL of Isovue 370. FINDINGS: LUNGS: Diffuse emphysematous changes with moderate bilateral pleural effusions. Compressive atelectas is at the lung bases. Pleural-based calcifications can be seen with inhalational or asbestos related disease. MEDIASTINUM: The heart is enlarged and there is atherosclerotic change of the aorta. No evidence of a neurysm. Severe coronary artery calcifications. A dialysis catheter with the tip overlying the SVC. Central pulmonary artery is of normal caliber and enhances normally. There is a borderline adenopathy in the mediastinum and hilum. Trace of pericardial fluid. Metallic foreign body overlying the right chest and upper abdomen. Previous aortic stent graft proced ure partially included in the [id number] on the receptionist telephone operator image. OTHER: Multilevel hypertrophic and degenerative changes spine. Chronic rib deformities are noted. IMPRESSION: 1. No diagnostic evidence of pulmonary embolism. 2. Moderate bilateral pleural effusion correlate for mild CHF. Basilar consolidation favor compressiv e atelectasis. 3. Chronic foreign body. Follow-up recommendations for incidental pulmonary nodules are per [employer] or [employer].
[2023-09-17] MEDS: HEPARIN SODIUM 1,000 UN/ML (10ML VL) IV ONE (09:39)
[2023-09-17] MEDS: FUROSEMIDE 10 MG/ML 4 ML VIAL IV SCH (09:39)
[2023-09-17] MEDS: HEPARIN SOD,PORK IN 0.45% NACL 25,000 UNIT in 0.45% NACL 1 250ML.BAG IV SCH ×2 (09:45→10:59)
[2023-09-17] MEDS: ISOSORBIDE MONONITRATE ER 30 MG TAB.ER.24H PO SCH (09:51)
[2023-09-17] MEDS: carvediloL 12.5 MG TAB PO SCH (09:51)
[2023-09-17] MEDS: amLODIPine 10 MG TAB PO SCH (09:52)
[2023-09-17] MEDS: TAMSULOSIN 0.4 MG CAP.ER.24H PO SCH (09:52)
[2023-09-17] MEDS: hydrALAZINE HCL 50 MG TAB PO SCH (09:52)
[2023-09-17] MEDS: DIGOXIN 125 MCG TAB PO SCH (09:52)
[2023-09-17] MEDS: CHOLECALCIFEROL 25 MCG (1000 IU) TABLET PO SCH (09:52)
--- NOTE | 2023-09-17 10:43 | US ---
EXAMINATION TYPE: US venous doppler duplex UE RT DATE OF EXAM: 09/17/2023 COMPARISON: NONE CLINICAL INDICATION: Male, 78 years old with history of DVT; lower etrem DVT same day US SIDE PERFORMED: right Right Arm: Positive for DVT there is free floating DVT within the IJV at Central line site with adjacent flow moving blood/develo ping thrombus. Exam limited, the subclavian vein is obscured by sutures/bandage IMPRESSION: 1. Exam is positive for free-floating acute DVT within the right internal jugular vein. A Red level critical message alert has been initiated for Christophe Siegel MD via the [employer] on 09/17/2023 10:39 AM. This message alert has been sent to Christophe Siegel MD via t he preferences provided by the clinician for the receipt of Radiology Critical Findings. Message ID [id number].
[2023-09-17] MEDS: ENOXAPARIN 80 MG/0.8 ML SYRINGE SQ STA (10:49)
[2023-09-17] MEDS: Apixaban Initiation Dose--VTE 5 MG TAB PO SCH (11:00)
[2023-09-17] MEDS ORDERED: MAGNESIUM HYDROXIDE 2,400 MG/30 ML CUP PO PRN (11:44)
[2023-09-17] MEDS ORDERED: HYDROcodone/APAP 5-325MG 1 EACH TAB PO PRN (11:44)
[2023-09-17] MEDS ORDERED: bisacodyL 10 MG SUPP RECTAL PRN (11:44)
--- NOTE | 2023-09-17 11:46 | P.HPIM ---
History of Present Illness H&P Date: 09/17/23 Chief Complaint: Dyspnea 78-year-old male with medical history of severe PAD status post right AKA, CAD, hypertension, hyperlipidemia, end-stage renal disease on dialysis which was recently initiated via right IJ permacath, paroxysmal atrial fibrillation on apixaban, previously on Coumadin presented for evaluation of dyspnea. Patient was recently discharged from our facility after a 9-day hospital course in which he was initiated on dialysis for acute renal failure and was sent to a alf for rehab. Patient says that his rehab was going okay when he started de velop worsening dyspnea. He also reports increased swelling of all of his extremities. He denies fevers, chills, nausea, vomiting, chest pain, palpitations, syncope. In the emergency room, patient was afebrile, 191/95, heart rate 121, 96% on 6 L of nasal cannula. CBC demonstrated leukocytosis to 11.6, hemoglobin of 11.3. Basic metabolic panel showed sodium of 131, BUN of 33, creatinine of 1.02. Liver function test showed albumin of 3.0. BNP was 26,900, troponin was 0.018. Coags were unremarkable. D-dimer was 10.12. Chest x-ray demonstrated findings of pulmonary congestion with right-sided pleural effusion. EKG demonstrated findings of atrial fibrillation with rapid ventricular response, left axis deviation. 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 CT angiography redemonstrated findings of volume overload with right-sided pleural effusion, trace left-sided pleural effusion, pulmonary congestion, but was negative for pulmonary embolism. Patient was initiated on a nitroglycerin drip for hypertensive urgency, patient was admitted with cardiology, nephrology consult. For findings of DVT, patient was given a dose of Lovenox 80 mg subcu. All Systems reviewed and pertinent positives and negatives noted in HPI, all other symptoms are negative Gen: in no apparent distress, resting comfortably in bed Eyes: PERRL, no scleral injection or icterus HENT: normocephalic, atraumatic, good hearing acuity, moist mucous membranes Neck: no tracheal deviation, full range of motion Resp: good air exchange, breathing comfortably with no accessory muscle use, no tactile fremitus, crackles throughout the posterior lung wheeler CVS: good distal perfusion x 4, bilateral pitting edema, irregular rhythm GI: soft, NTTP, ND, no hepatosplenomegaly : no suprapubic tenderness, no CVAT, monae catheter not present MSK: no clubbing, no cyanosis, no noted contractures of extremities, right upper extremity pitting edema worse than left upper extremity Skin: no noted rashes, petechiae; temperature of skin is appropriate Neuro: moving all extremities without signs of weakness, CN II-XII intact Psych: cooperative, euthymic mood, insight and judgment intact Labs and imaging as above Assessment/plan: Acute hypoxemic respiratory failure Acute on chronic diastolic heart failure exacerbation End-stage renal disease -Patient will be admitted inpatient with telemetry to cardiac selective -Nephrology consult for dialysis today -Pulmonology consult -Oxygen as needed Hypertensive urgency History of cardiac pauses Paroxysmal atrial fibrillation -Cardiology was consulted by ER -Resume home medications -Consideration of discontinuation of digoxin -Digoxin level will be ordered Acute DVT -Heparin drip was started, follow PTT for toxicity -Hematology was consulted, case discussed with them, apixaban starter dosing w ill be initiated after 24 hours of heparin PAD History of CAD Hyperlipidemia -Home medications reviewed and reconciled, atorvastatin increased to 40 Patient is DNR/DNI Past Medical History Past Medical History: Atrial Fibrillation, Deep Vein Thrombosis (DVT), GERD/Reflux, Hearing Disorder / Deafness, Hyperlipidemia, Osteoarthritis (OA), Prostate Disorder, Sleep Apnea/CPAP/BIPAP Additional Past Medical History / Comment(s): DVT Last Myocardial Infarction Date:: UNKNOWN History of Any Multi-Drug Resistant Organisms: None Reported Past Surgical History: Heart Catheterization With Stent Additional Past Surgical History / Comment(s): Femoral bypass right and left, removed steel from right lung and retired up diaphram, right above knee amputee Past Anesthesia/Blood Transfusion Reactions: No Reported Reaction Date of Last Stent Placement:: UNKNOWN Past Psychological History: Depression, PTSD Smoking Status: Current some day smoker Past Alcohol Use History: Occasional Past Drug Use History: None Reported - Past Family History Mother Family Medical History: Myocardial Infarction ([place]) Father Family Medical History: Dementia Medications and Allergies Home Medications Medication Instructions Recorded Confirmed Type Apixaban [Eliquis] 2.5 mg PO BID@0800,1700 09/02/23 09/17/23 History Cholecalciferol [Vitamin D3 (25 25 mcg PO DAILY@0809/02/23 09/17/23 History Mcg = 1000 Iu)] Tamsulosin [Flomax] 0.4 mg PO DAILY@0800 09/02/23 09/17/23 History Calcium Acetate [PhosLo] 667 mg PO BID-W/MEALS tab 09/12/23 09/17/23 Rx Digoxin [Lanoxin] 125 mcg PO Q48H tab 09/12/23 09/17/23 Rx Atorvastatin [Lipitor] 10 mg PO HS@2100 09/17/23 09/17/23 History HYDROcodone/APAP 5-325MG [[place] 1 tab PO Q6H PRN 09/17/23 09/17/23 History 5-325] Isosorbide Mononitrate ER [Imdur] 30 mg PO DAILY@0800 09/17/23 09/17/23 History Magnesium Hydroxide [Milk of 7,200 mg PO Q48H PRN 09/17/23 09/17/23 History Magnesia Concentrate] Na Phos,M-B/Na Phos,Di-Ba [[place] 133 ml RECTAL DAILY PRN 09/17/23 09/17/23 History Adult] Nepro 1 can PO SUMOWEFR@0809/17/23 09/17/23 History Nepro 1 can PO TUTHSA@0600 09/17/23 09/17/23 History Torsemide [Demadex] 40 mg PO DAILY@0809/17/23 09/17/23 History amLODIPine [Norvasc] 10 mg PO DAILY@0809/17/23 09/17/23 History bisacodyL [Dulcolax] 10 mg RECTAL DAILY PRN 09/17/23 09/17/23 History carvediloL [Coreg] 6.25 mg PO BID@0800,1700 09/17/23 09/17/23 History hydrALAZINE HCL [Apresoline] 100 mg PO TID 09/17/23 09/17/23 History Allergies Allergy/AdvReac Type Severity Reaction Status Date / Time No Known Allergies Allergy Verified 09/17/23 09:59 Physical Exam Osteopathic Statement: *. No significant issues noted on an osteopathic structural exam other than those noted in the History and Physical/Consult. Vitals: Vital Signs Temp Pulse Resp BP Pulse Ox 09/17/23 08:30 82 14 148/96 94 L 09/17/23 08:15 81 14 146/90 94 L 09/17/23 08:00 91 16 132/77 93 L 09/17/23 07:45 94 14 136/91 92 L 09/17/23 07:30 82 14 152/84 94 L 09/17/23 07:15 89 15 119/85 95 09/17/23 06:38 87 18 133/77 97 09/17/23 06:01 98 18 139/83 96 09/17/23 05:44 89 18 136/65 95 09/17/23 05:38 113 H 20 130/72 93 L 09/17/23 05:28 104 H 24 177/105 95 09/17/23 05:23 24 09/17/23 05:08 98.0 F 121 H 24 191/95 96 Intake and Output 09/16/23 09/17/23 09/17/23 22:59 06:59 14:59 Intake Total 0.975 Balance 0.975 Intake: Intake, IV Titration 0.975 Amount Nitroglycerin-D5w Pmx 50 0.975 mg In Dextrose/Water 1 250ml.bag @ 5 MCG/MIN 1.5 mls/hr IV .Q24H ONE Rx#: [id number] Other: Weight 81.647 kg Results CBC & Chem 7: 09/17/23 05:21 09/17/23 05:21 Labs: Abnormal Lab Results - Last 24 Hours (Table) 09/17/23 09/17/23 09/17/23 Range/Units 05:21 05:21 05:21 WBC 11.6 H (3.8-10.6) k/uL RBC 3.84 L (4.30-5.90) m/uL Hgb 11.3 L (13.0-17.5) gm/dL Hct 35.5 L (39.0-53.0) % Neutrophils # 9.2 H (1.3-7.7) k/uL D-Dimer (<0.60) mg/L FEU Sodium 131 L (137-145) mmol/L BUN 33 H (9-20) mg/dL Creatinine 4.02 H (0.66-1.25) mg/dL Glucose 130 H (74-99) mg/dL Plasma Lactic Acid Aiden 0.6 L (0.7-2.0) mmol/L Total Protein 5.3 L (6.3-8.2) g/dL Albumin 3.0 L (3.5-5.0) g/dL 09/17/23 Range/Units 06:07 WBC (3.8-10.6) k/uL RBC (4.30-5.90) m/uL Hgb (13.0-17.5) gm/dL Hct (39.0-53.0) % Neutrophils # (1.3-7.7) k/uL D-Dimer 10.12 H (<0.60) mg/L FEU Sodium (137-145) mmol/L BUN (9-20) mg/dL Creatinine (0.66-1.25) mg/dL Glucose (74-99) mg/dL Plasma Lactic Acid Aiden (0.7-2.0) mmol/L Total Protein (6.3-8.2) g/dL Albumin (3.5-5.0) g/dL
--- NOTE | 2023-09-17 13:21 | P.CRDCN ---
History of Present Illness Consult date: 09/17/23 Consult reason: congestive heart failure History of present illness: History of present illness: This is a 78-year-old male patient of Dr. Siegel with past medical history of right xutbb-[id number] amputation, persistent atrial fibrillation, hypertension, hyperlipidemia, coronary artery disease with multiple stents in the past, end- stage renal disease on hemodialysis, PAD with abdominal aortic aneurysm status post EVAR with additional PAD. We have been asked to evaluate the patient for CHF. Patient's states that he has had longstanding shortness of breath that apparently has worsened. He complains of pain between his shoulder blades that has had for many years. He recently started on hemodialysis about 3 weeks ago. He currently denies having chest pain. Patient has had Doppler study of the lower extremities which has not been reported yet. Dr. Juarez discussed case with ER physician and attending. EKG atrial fibrillation at 112 bpm Chest x-ray: Findings consistent with fluid overload. CTA of the chest reveals no diagnostic evidence of pulmonary embolism. Moderate bilateral pleural effusions. Chronic foreign body. Venous Doppler positive for free-floating acute DVT within the right internal jugular vein Echocardiogram performed on 09/11/2023 reveals EF 50 to 55%. Mildly increased left ventricular wall thickness. Moderate to severe biatrial enlargement. Mild right ventricular dilation. Trace mitral regurgitation. No pericardial effusion. WBC 11.6, hemoglobin 11.3, platelet count 186. INR 1.1. D-dimer 10.12. Sodium 131, potassium 4.8, BUN 33 creatinine 4.02. Glucose 130. Lactic acid 0.6. Troponin negative x 1. proBNP 26,900. Home cardiac medications: Amlodipine 10 mg daily, Eliquis 2.5 mg twice daily, atorvastatin 10 mg at bedtime, Coreg 6.25 mg twice daily, digoxin 125 mcg every 48 hours, hydralazine 100 mg 3 times daily, Imdur 30 mg daily, torsemide 40 mg daily. There Lexiscan Cardiolite stress test performed in the office on 04/25/2023 revealed fixed inferior perfusion defect consistent with diaphragmatic attenuation artifact versus infarct. Reversible small size apical perfusion defect consistent with ischemia. Left ventricular EF 40%. Review Of Systems: At the time of my exam: CONSTITUTIONAL: Denies fever or chills. Reports generalized fatigue. HEENT: Denies blurred vision, vision changes, or eye pain. Denies hemoptysis CARDIOVASCULAR: Denies chest pain. Denies orthopnea. Denies PND. Denies palpitations RESPIRATORY: Denies shortness of breath. GASTROINTESTINAL: Denies abdominal pain. Denies nausea or vomiting. HEMATOLOGIC: Denies bleeding disorders. GENITOURINARY: Denies any blood in urine. SKIN: Denies pruitis. Denies rash. Physical examination: Gen: This is a 78-year-old male in no acute distress VS: reviewed blood pressure 146/90, heart rate 81, pulse ox 94% on room air. HEENT: Head is atraumatic, normocephalic. Pupils equal, round. Sclerae is anicteric. NECK: Supple. No JVD. LUNGS: Clear to auscultation. No wheezes or rhonchi. No intercostal retractio ns. HEART: Irregular rate and rhythm. No murmur. ABDOMEN: Soft No tenderness. EXTREMITIES: Right itoiu-ncv-xfhq amputation. Left lower extremity pulses decreased. No edema. NEUROLOGICAL: Patient is awake, alert and oriented x3. Assessment: Acute hypoxic respiratory failure secondary to acute on chronic diastolic heart failure DVT right internal jugular vein, possible failed Eliquis Persistent atrial fibrillation End-stage renal disease on hemodialysis Hypertension Hyperlipidemia Coronary artery disease with multiple stents PAD with abdominal aortic aneurysm status post EVAR with additional PAD History of [id number] amputation on the right Obstructive sleep apnea History of CVA Plan: Continue patient's home cardiac medications with the following changes Increase Coreg to 12.5 mg twice daily Discontinue digoxin and do not resume at the time of discharge Discontinue IV nitroglycerin, resume Imdur Continue IV Lasix Monitor BARRY Daily weights, electrolytes and renal function Continue heparin drip for DVT, Eliquis on hold Further recommendations to follow based upon clinical course Thank you kindly for this consultation. Nurse practitioner note has been reviewed, I agree with documented findings and plan of care. Patient was seen and examined. Past Medical History Past Medical History: Atrial Fibrillation, Deep Vein Thrombosis (DVT), GERD/Reflux, Hearing Disorder / Deafness, Hyperlipidemia, Osteoarthritis (OA), Prostate Disorder, Sleep Apnea/CPAP/BIPAP Additional Past Medical History / Comment(s): DVT Last Myocardial Infarction Date:: UNKNOWN History of Any Multi-Drug Resistant Organisms: None Reported Past Surgical History: Heart Catheterization With Stent Additional Past Surgical History / Comment(s): Femoral bypass right and left, removed steel from right lung and retired up diaphram, right above knee amputee Past Anesthesia/Blood Transfusion Reactions: No Reported Reaction Date of Last Stent Placement:: UNKNOWN Past Psychological History: Depression, PTSD Smoking Status: Current some day smoker Past Alcohol Use History: Occasional Past Drug Use History: None Reported - Past Family History Mother Family Medical History: Myocardial Infarction ([place]) Father Family Medical History: Dementia Medications and Allergies Home Medications Medication Instructions Recorded Confirmed Type Apixaban [Eliquis] 2.5 mg PO BID@0800,1700 09/02/23 09/17/23 History Cholecalciferol [Vitamin D3 (25 25 mcg PO DAILY@0800 09/02/23 09/17/23 History Mcg = 1000 Iu)] Tamsulosin [Flomax] 0.4 mg PO DAILY@0800 09/02/23 09/17/23 History Calcium Acetate [PhosLo] 667 mg PO BID-W/MEALS tab 09/12/23 09/17/23 Rx Digoxin [Lanoxin] 125 mcg PO Q48H tab 09/12/23 09/17/23 Rx Atorvastatin [Lipitor] 10 mg PO HS@2100 09/17/23 09/17/23 History HYDROcodone/APAP 5-325MG [[place] 1 tab PO Q6H PRN 09/17/23 09/17/23 History 5-325] Isosorbide Mononitrate ER [Imdur] 30 mg PO DAILY@0800 09/17/23 09/17/23 History Magnesium Hydroxide [Milk of 7,200 mg PO Q48H PRN 09/17/23 09/17/23 History Magnesia Concentrate] Na Phos,M-B/Na Phos,Di-Ba [Fleet 133 ml RECTAL DAILY PRN 09/17/23 09/17/23 History Adult] Nepro 1 can PO SUMOWEFR@79909/17/23 09/17/23 History Nepro 1 can PO TUTHSA@0609/17/23 09/17/23 History Torsemide [Demadex] 40 mg PO DAILY@0800 09/17/23 09/17/23 History amLODIPine [Norvasc] 10 mg PO DAILY@0800 09/17/23 09/17/23 History bisacodyL [Dulcolax] 10 mg RECTAL DAILY PRN 09/17/23 09/17/23 History carvediloL [Coreg] 6.25 mg PO BID@0800,1700 09/17/23 09/17/23 History hydrALAZINE HCL [Apresoline] 100 mg PO TID 09/17/23 09/17/23 History Allergies Allergy/AdvReac Type Severity Reaction Status Date / Time No Known Allergies Allergy Verified 09/17/23 09:59 Physical Exam Vitals: Vital Signs Temp Pulse Resp BP Pulse Ox 09/17/23 06:38 87 18 133/77 97 09/17/23 06:01 98 18 139/83 96 09/17/23 05:44 89 18 136/65 95 09/17/23 05:38 113 H 20 130/72 93 L 09/17/23 05:28 104 H 24 177/105 95 09/17/23 05:23 24 09/17/23 05:08 98.0 F 121 H 24 191/95 96 Intake and Output 09/16/23 09/17/23 09/17/23 22:59 06:59 14:59 Intake Total 0.975 Balance 0.975 Intake: Intake, IV Titration 0.975 Amount Nitroglycerin-D5w Pmx 50 0.975 mg In Dextrose/Water 1 250ml.bag @ 5 MCG/MIN 1.5 mls/hr IV .Q24H ONE Rx#: [id number] Other: Weight 81.647 kg Results 09/17/23 05:21 09/17/23 05:21 Cardiac Enzymes 09/17/23 09/17/23 Range/Units 05:21 05:21 AST 22 (17-59) U/L Troponin I 0.018 (0.000-0.034) ng/mL Coagulation 09/17/23 Range/Units 06:07 PT 11.6 (10.0-12.5) sec APTT 24.3 (22.0-30.0) sec CBC 09/17/23 Range/Units 05:21 WBC 11.6 H (3.8-10.6) k/uL RBC 3.84 L (4.30-5.90) m/uL Hgb 11.3 L (13.0-17.5) gm/dL Hct 35.5 L (39.0-53.0) % Plt Count 186 (150-450) k/uL Comprehensive Metabolic Panel 09/17/23 Range/Units 05:21 Sodium 131 L (137-145) mmol/L Potassium 4.8 (3.5-5.1) mmol/L Chloride 98 (98-107) mmol/L Carbon Dioxide 28 (22-30) mmol/L BUN 33 H (9-20) mg/dL Creatinine 4.02 H (0.66-1.25) mg/dL Glucose 130 H (74-99) mg/dL Calcium 8.6 (8.4-10.2) mg/dL AST 22 (17-59) U/L ALT 11 (4-49) U/L Alkaline Phosphatase 59 (38-126) U/L Total Protein 5.3 L (6.3-8.2) g/dL Albumin 3.0 L (3.5-5.0) g/dL Current Medications Generic Name Dose Route Start Last Admin Trade Name Freq PRN Reason Stop Dose Admin Furosemide 40 mg 09/17/23 08:00 Furosemide 10 Mg/Ml 4 Ml Vial IV Q12H TYLOR Nitroglycerin/Dextrose 50 mg/ 250 mls @ 1.5 mls/hr 09/17/23 05:24 09/17/23 05:47 IV Solution IV 09/18/23 05:23 40 mcg/min .Q24H ONE 12 mls/hr Titration Protocol 5 MCG/MIN Sodium Chloride 10 ml 09/17/23 09:00 Sodium Chloride 0.9% Flush 10 Ml Syringe IV BID TYLOR Intake and Output 09/16/23 09/17/23 09/17/23 22:59 06:59 14:59 Intake Total 0.975 Balance 0.975 Intake: Intake, IV Titration 0.975 Amount Nitroglycerin-D5w Pmx 50 0.975 mg In Dextrose/Water 1 250ml.bag @ 5 MCG/MIN 1.5 mls/hr IV .Q24H ONE Rx#: [id number] Other: Weight 81.647 kg 09/17/23 05:21 09/17/23 05:21
[2023-09-17] MEDS: CALCIUM ACETATE 667 MG TAB PO SCH (17:59)
--- NOTE | 2023-09-17 18:40 | P.CNPUL ---
History of Present Illness Consult date: 09/17/23 Reason for consult: dyspnea History of present illness: This is a 78-year-old male patient who came in to the hospital for worsening shortness of breath. He also developed increased swelling lower extremities. The patient has end-stage renal disease and the patient was started on hemodialysis recently and dialysis was initiated to a right IJ permacath. The patient was discharged from the hospital approximately 9 days ago after being initiated on hemodialysis and the patient was sent to a shelter/rehab facility. Noted the patient was started on hemodialysis on 09/03/2023. He was maintained on hemodialysis 3 times a week, TTS via permacath. The patient came in with worsening shortness of breath. The patient was hypertensive with a BP of 191/95 and a pro BNP level was 26,900 with a troponin of 0.18. BUN was 33 with a creatinine of 4 .02. Sodium level was 131. Coags were unremarkable. Rest of the CBC showed a WBC count of 11.6 with a hemoglobin 11.3.. The chest x-ray was done in the emergency department and showed consistent changes with fluid overload and the patient underwent a CT of the chest that showed no evide nce of any pulmonary embolism. There was moderate bilateral pleural effusion and mild CHF and bibasilar consolidation favoring compressive atelectasis. Dopplers were also performed and the patient was found to have a free-floating acute DVT within the right internal jugular vein at central line site with adjacent flow moving blood/developing thrombus. The Doppler of the lower extremities was also done and the patient was found to have an acute nonocclusive DVT involving the left superficial femoral vein and extensive DVT involving the right lower extremity. 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 As such, the patient was started on IV heparin. The patient was seen by nephrology. The patient will have hemodialysis today. Most recent echocardiogram that was done on this patient was on 09/11/2023 and it showed normal LV function, mild increase in left ventri cular wall thickness and moderate to severe biatrial enlargement and mild RV dilatation. He is currently on 60 of O2 nasal cannula with a pulse ox of 98%. Blood pressure improved and the most recent BP is 147/81. Review of Systems 14 point review of system was done and the positive findings are mentioned above in history of present illness. CONSTITUTIONAL: Denies fever or chills. Reports generalized fatigue. HEENT: Denies blurred vision, vision changes, or eye pain. Denies hemoptysis CARDIOVASCULAR: Denies chest pain. Denies orthopnea. Denies PND. Denies palpita tions RESPIRATORY: Admits to have some increased shortness of breath. GASTROINTESTINAL: Denies abdominal pain. Denies nausea or vomiting. HEMATOLOGIC: Denies bleeding disorders. GENITOURINARY: Denies any blood in urine. SKIN: Denies pruitis. Denies rash. Past Medical History Past Medical History: Atrial Fibrillation, Deep Vein Thrombosis (DVT), GERD/Reflux, Hearing Disorder / Deafness, Hyperlipidemia, Osteoarthritis (OA), Prostate Disorder, Sleep Apnea/CPAP/BIPAP Additional Past Medical History / Comment(s): DVT Last Myocardial Infarction Date:: UNKNOWN History of Any Multi-Drug Resistant Organisms: None Reported Past Surgical History: Heart Catheterization With Stent Additional Past Surgical History / Comment(s): Femoral bypass right and left, removed steel from right lung and retired up diaphram, right above knee amputee Past Anesthesia/Blood Transfusion Reactions: No Reported Reaction Date of Last Stent Placement:: UNKNOWN Past Psychological History: Depression, PTSD Smoking Status: Current some day smoker Past Alcohol Use History: Occasional Past Drug Use History: None Reported - Past Family History Mother Family Medical History: Myocardial Infarction ([place]) Father Family Medical History: Dementia Medications and Allergies Home Medications Medication Instructions Recorded Confirmed Type Apixaban [Eliquis] 2.5 mg PO BID@0800,1700 09/02/23 09/17/23 History Cholecalciferol [Vitamin D3 (25 25 mcg PO DAILY@0800 09/02/23 09/17/23 History Mcg = 1000 Iu)] Tamsulosin [Flomax] 0.4 mg PO DAILY@0800 09/02/23 09/17/23 History Calcium Acetate [PhosLo] 667 mg PO BID-W/MEALS tab 09/12/23 09/17/23 Rx Atorvastatin [Lipitor] 10 mg PO HS@2100 09/17/23 09/17/23 History HYDROcodone/APAP 5-325MG [[place] 1 tab PO Q6H PRN 09/17/23 09/17/23 History 5-325] Isosorbide Mononitrate ER [Imdur] 30 mg PO DAILY@0800 09/17/23 09/17/23 History Magnesium Hydroxide [Milk of 7,200 mg PO Q48H PRN 09/17/23 09/17/23 History Magnesia Concentrate] Na Phos,M-B/Na Phos,Di-Ba [Fleet 133 ml RECTAL DAILY PRN 09/17/23 09/17/23 History Adult] Nepro 1 can PO SUMOWEFR@0800 09/17/23 09/17/23 History Nepro 1 can PO TUTHSA@0600 09/17/23 09/17/23 History Torsemide [Demadex] 40 mg PO DAILY@0809/17/23 09/17/23 History amLODIPine [Norvasc] 10 mg PO DAILY@0800 09/17/23 09/17/23 History bisacodyL [Dulcolax] 10 mg RECTAL DAILY PRN 09/17/23 09/17/23 History carvediloL [Coreg] 6.25 mg PO BID@0800,1700 09/17/23 09/17/23 History hydrALAZINE HCL [Apresoline] 100 mg PO TID 09/17/23 09/17/23 History Allergies Allergy/AdvReac Type Severity Reaction Status Date / Time No Known Allergies Allergy Verified 09/17/23 09:59 Physical Exam Vitals: Vital Signs Temp Pulse Resp BP Pulse Ox 09/17/23 17:58 80 20 147/81 98 09/17/23 15:00 64 20 134/79 99 09/17/23 13:30 59 L 18 131/70 98 09/17/23 08:30 82 14 148/96 94 L 09/17/23 08:15 81 14 146/90 94 L 09/17/23 08:00 91 16 132/77 93 L 09/17/23 07:45 94 14 136/91 92 L 09/17/23 07:30 82 14 152/84 94 L 09/17/23 07:15 89 15 119/85 95 09/17/23 06:38 87 18 133/77 97 09/17/23 06:01 98 18 139/83 96 09/17/23 05:44 89 18 136/65 95 09/17/23 05:38 113 H 20 130/72 93 L 09/17/23 05:28 104 H 24 177/105 95 09/17/23 05:23 24 09/17/23 05:08 98.0 F 121 H 24 191/95 96 Intake and Output 09/17/23 09/17/23 09/17/23 06:59 14:59 22:59 Intake Total 0.975 87.441 Balance 0.975 87.441 Intake: Intake, IV Titration 0.975 87.441 Amount Heparin Sod,Pork in 0.45% 87.441 NaCl 25,000 unit In 0.45 % NaCl 1 250ml.bag @ 18 UNITS/KG/HR 14.696 mls/hr IV .Q17H1M [facility] Rx#: [id number] Nitroglycerin-D5w Pmx 50 0.975 mg In Dextrose/Water 1 250ml.bag @ 5 MCG/MIN 1.5 mls/hr IV .Q24H ONE Rx#: [id number] Other: Weight 81.647 kg Gen: in no apparent distress, resting comfortably in bed, the patient is currently on 60 days of O2 nasal cannula Eyes: PERRL, no scleral injection or icterus Head exam was generally normal. There was no scleral icterus or corneal arcus. Mucous membranes were moist. Neck: no tracheal deviation, full range of motion Resp: good air exchange, breathing comfortably with no accessory muscle use, no tactile fremitus, crackles throughout the posterior lung wheeler CVS: good distal perfusion x 4, bilateral pitting edema, irregular rhythm GI: soft, NTTP, ND, no hepatosplenomegaly : no suprapubic tenderness, no CVAT, monae catheter not present MSK: no clubbing, no cyanosis, no noted contractures of extremities, right upper extremity pitting edema worse than left upper extremity Skin: no noted rashes, petechiae; temperature of skin is appropriate Neuro: moving all extremities without signs of weakness, CN II-XII intact Psych: cooperative, euthymic mood, insight and judgment intact Results - Laboratory Findings CBC and BMP: 09/17/23 05:21 09/17/23 05:21 PT/INR, D-dimer PT 11.6 sec (10.0-12.5) 09/17/23 06:07 INR 1.1 (<1.2) 09/17/23 06:07 D-Dimer 10.12 mg/L FEU (<0.60) H 09/17/23 06:07 Abnormal lab findings: Abnormal Labs 09/17/23 09/17/23 09/17/23 05:21 05:21 05:21 WBC 11.6 H RBC 3.84 L Hgb 11.3 L Hct 35.5 L Neutrophils # 9.2 H APTT D-Dimer Sodium 131 L BUN 33 H Creatinine 4.02 H Glucose 130 H Plasma Lactic Acid Aiden 0.6 L Total Protein 5.3 L Albumin 3.0 L 09/17/23 09/17/23 06:07 16:16 WBC RBC Hgb Hct Neutrophils # APTT >200.0 H* D-Dimer 10.12 H Sodium BUN Creatinine Glucose Plasma Lactic Acid Aiden Total Protein Albumin Assessment and Plan Plan: Acute hypoxic respiratory failure and the patient is currently on 6 L of O2 nasal cannula. Patient has signs of fluid overload with bilateral pleural effusion consistent with volume overload. CTA of the chest has been completed and the patient has no evidence of any pulmonary embolism. Bilateral pleural effusions secondary to above Bilateral pleural effusions secondary to above End-stage renal disease on hemodialysis 3 times a week, TTS via permacath Acute nonocclusive DVT involving the left superficial valvular vein and extensive DVT involving the right lower extremity Free-floating acute DVT within the right internal jugular vein at the site of a previously inserted Permacath Peripheral artery disease with suspicious external iliac artery/common femoral artery aneurysm/pseudoaneurysm at the anastomosis of the femoral-femoral bypass. The patient has undergone a previous right above-knee amputation Hypertensive urgency, BP is under better control status post nitroglycerin drip Chronic diastolic heart failure Chronic A-fib with some tachycardia at time of admission History of fall with development of pelvic hematoma, hemoglobin is stable and previous CAT scan of the abdomen pelvis that showed no evidence of any endovascular leak Peripheral vascular disease with previous aorto by iliac stent grafting Abdominal aortic aneurysm, stable COPD, currently inactive and stable Coronary disease with previous coronary stenting Previous above-knee amputation on the right Hypertension Depression/PTSD Remote history of DVT Obstructive sleep apnea Diverticulosis 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 Plan: Proceed with hemodialysis today Wean FiO2 as tolerated to maintain saturation above 90% currently on 6 L IV heparin Consult vascular surgery regarding the right IJ thrombus, consider replacing the catheter Nephrology consultation Blood pressure monitoring and resume antihypertensive medications and the patient is currently on a combination of Coreg and hydralazine and Imdur Will continue to follow.
--- NOTE | 2023-09-17 19:58 | P.CONS ---
History of Present Illness - Reason for Consult Consult date: 09/17/23 DVT Requesting physician: Luis Shahid - Chief Complaint SOB - History of Present Illness Mr. Fofana is a 78-year-old male we have been asked to see because of bilateral lower extremity DVTs, while on 2.5mg of eliquis BID. 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 This is status post recent dialysis catheter placement after he was found to be in acute renal failure, after a fall and prolonged time down. Patient is a poor historian, he cannot remember when he a blood clot. He has been on Coumadin in the past, from chart review it looks like this was held Oct because of pelvic hematoma after a fall, resumed on DC. He was admitted 09/02/23 after a fall, MARIO, dialysis catheter placed. Coumadin stopped, pt discharged on 2.5mg eliquis BID. Pt reports he has been taking Eliquis. Patient denies any current bleeding, he is admitted with shortness of breath and dyspnea. CTA of the chest was negative for PE. Review of Systems 10 point ROS is neg except as stated in HPI Past Medical History Past Medical History: Atrial Fibrillation, Deep Vein Thrombosis (DVT), GERD/Reflux, Hearing Disorder / Deafness, Hyperlipidemia, Osteoarthritis (OA), Prostate Disorder, Sleep Apnea/CPAP/BIPAP Additional Past Medical History / Comment(s): DVT Last Myocardial Infarction Date:: UNKNOWN History of Any Multi-Drug Resistant Organisms: None Reported Past Surgical History: Heart Catheterization With Stent Additional Past Surgical History / Comment(s): Femoral bypass right and left, removed steel from right lung and retired up diaphram, right above knee amputee Past Anesthesia/Blood Transfusion Reactions: No Reported Reaction Date of Last Stent Placement:: UNKNOWN Past Psychological History: Depression, PTSD Smoking Status: Current some day smoker Past Alcohol Use History: Occasional Past Drug Use History: None Reported - Past Family History Mother Family Medical History: Myocardial Infarction (NH) Father Family Medical History: Dementia Medications and Allergies Home Medications Medication Instructions Recorded Confirmed Type Apixaban [Eliquis] 2.5 mg PO BID@0800,1700 09/02/23 09/17/23 History Cholecalciferol [Vitamin D3 (25 25 mcg PO DAILY@0800 09/02/2308/24 History Mcg = 1000 Iu)] Tamsulosin [Flomax] 0.4 mg PO DAILY@0809/02/23 09/17/23 History Calcium Acetate [PhosLo] 667 mg PO BID-W/MEALS tab 09/12/23 09/17/23 Rx Atorvastatin [Lipitor] 10 mg PO HS@2100 09/17/23 09/17/23 History HYDROcodone/APAP 5-325MG [[place] 1 tab PO Q6H PRN 09/17/23 09/17/23 History 5-325] Isosorbide Mononitrate ER [Imdur] 30 mg PO DAILY@0809/17/23 09/17/23 History Magnesium Hydroxide [Milk of 7,200 mg PO Q48H PRN 09/17/23 09/17/23 History Magnesia Concentrate] Na Phos,M-B/Na Phos,Di-Ba [Fleet 133 ml RECTAL DAILY PRN 09/17/23 09/17/23 Hist ory Adult] Nepro 1 can PO SUMOWEFR@0809/17/23 09/17/23 History Nepro 1 can PO TUTHSA@0600 09/17/23 09/17/23 History Torsemide [Demadex] 40 mg PO DAILY@0809/17/23 09/17/23 History amLODIPine [Norvasc] 10 mg PO DAILY@0809/17/23 09/17/23 History bisacodyL [Dulcolax] 10 mg RECTAL DAILY PRN 09/17/23 09/17/23 History carvediloL [Coreg] 6.25 mg PO BID@0800,1700 09/17/23 09/17/23 History hydrALAZINE HCL [Apresoline] 100 mg PO TID 09/17/23 09/17/23 History Allergies Allergy/AdvReac Type Severity Reaction Status Date / Time No Known Allergies Allergy Verified 09/17/23 09:59 Physical Exam Vitals: Vital Signs Temp Pulse Resp BP Pulse Ox 09/17/23 08:30 82 14 148/96 94 L 09/17/23 08:15 81 14 146/90 94 L 09/17/23 08:00 91 16 132/77 93 L 09/17/23 07:45 94 14 136/91 92 L 09/17/23 07:30 82 14 152/84 94 L 09/17/23 07:15 89 15 119/85 95 09/17/23 06:38 87 18 133/77 97 09/17/23 06:01 98 18 139/83 96 09/17/23 05:44 89 18 136/65 95 09/17/23 05:38 113 H 20 130/72 93 L 09/17/23 05:28 104 H 24 177/105 95 09/17/23 05:23 24 09/17/23 05:08 98.0 F 121 H 24 191/95 96 Intake and Output 09/16/23 09/17/23 09/17/23 22:59 06:59 14:59 Intake Total 0.975 Balance 0.975 Intake: Intake, IV Titration 0.975 Amount Nitroglycerin-D5w Pmx 50 0.975 mg In Dextrose/Water 1 250ml.bag @ 5 MCG/MIN 1.5 mls/hr IV .Q24H ONE Rx#: [id number] Other: Weight 81.647 kg - Constitutional General appearance: average body habitus, cooperative, no acute distress - EENT Eyes: anicteric sclerae, EOMI ENT: hearing grossly normal - Respiratory Respiratory: bilateral: CTA - Cardiovascular Heart sounds: normal: S1, S2 Abnormal Heart Sounds: no systolic murmur, no diastolic murmur, no rub, no S3 Gallop, no S4 Gallop, no click, no other leg Peripheral Edema: right: Other (AKA), bilateral: 2+, Pitting - Gastrointestinal General gastrointestinal: no absent bowel sounds, no decreased bowel sounds, no distended, no hepatomegaly, no hyperactive bowel sounds, normal bowel sounds, no organomegaly, no rigid, no scaphoid, soft, no splenomegaly, no tenderness, no umbilical hernia, no ventral hernia - Integumentary Integumentary: normal - Neurologic Neurologic: CNII-XII intact - Musculoskeletal Musculoskeletal: generalized weakness - Psychiatric Psychiatric: A&O x's 3, appropriate affect, intact judgment & insight RUE edema Results CBC & Chem 7: 09/17/23 05:21 09/17/23 05:21 Labs: Abnormal Lab Results - Last 24 Hours (Table) 09/17/23 09/17/23 09/17/23 Range/Units 05:21 05:21 05:21 WBC 11.6 H (3.8-10.6) k/uL RBC 3.84 L (4.30-5.90) m/uL Hgb 11.3 L (13.0-17.5) gm/dL Hct 35.5 L (39.0-53.0) % Neutrophils # 9.2 H (1.3-7.7) k/uL D-Dimer (<0.60) mg/L FEU Sodium 131 L (137-145) mmol/L BUN 33 H (9-20) mg/dL Creatinine 4.02 H (0.66-1.25) mg/dL Glucose 130 H (74-99) mg/dL Plasma Lactic Acid Aiden 0.6 L (0.7-2.0) mmol/L Total Protein 5.3 L (6.3-8.2) g/dL Albumin 3.0 L (3.5-5.0) g/dL 09/17/23 Range/Units 06:07 WBC (3.8-10.6) k/uL RBC (4.30-5.90) m/uL Hgb (13.0-17.5) gm/dL Hct (39.0-53.0) % Neutrophils # (1.3-7.7) k/uL D-Dimer 10.12 H (<0.60) mg/L FEU Sodium (137-145) mmol/L BUN (9-20) mg/dL Creatinine (0.66-1.25) mg/dL Glucose (74-99) mg/dL Plasma Lactic Acid Aiden (0.7-2.0) mmol/L Total Protein (6.3-8.2) g/dL Albumin (3.5-5.0) g/dL Venous US: report reviewed (reports reviewed to last year) Assessment and Plan (1) DVT (deep venous thrombosis) Current Visit: Yes Status: Acute Priority: High Code(s): I82.409 - ACUTE EMBOLISM AND THOMBOS UNSP DEEP VN UNSP LOWER EXTREMITY SNOMED Code(s): 185274671 Plan: DVT-LLE Acute on chronic, RLE chronic, RUE near cath -Pt was on coumadin for a-fib. During admit last month his INR was 1 on 08/27 and 09/01. He was transitioned to eliquis 2.5mg PO BID at [place]. -It is unclear when DVT actually occurred. Did clot occur when he not therapeutic on coumadin (INR was 1 on 08/27 and 09/01) and prior to starting eliquis? Dose of eliquis pt received was for afib and can be used for DVT prophylaxis but, is not a treatment dose. So, cannot be certain if this is truly a failure of eliquis. -[place] to be a provoked DVT-recent hospitalization, falls, decreased mobility, significant CVD. -Recommendation is for full dose anticoagulation. Duration of anticoagulation 3-6mo for provoked DVT. If provoking factors persist then longer duration at full dose anticoagulation may be reasonable. Also, need to consider risk vs benefit as pt is a fall risk. Doctor attests: I performed a history and physical examination of this patient, developed impression and plan of care. Discussed with dictator. I agree with dictators note, documented as a scribe.
[2023-09-17] MEDS: ATORVASTATIN 40 MG TAB PO SCH (20:33)
[2023-09-17] MEDS ORDERED: ATORVASTATIN 10 MG TAB PO SCH ×2 (21:00)
[2023-09-18] MEDS ORDERED: NON FORMULARY DRUG (Nepro 1 CAN Ml) PO SCH (06:00)
[2023-09-18 08:30] LABS: Basophils # (A) 0.1 k/uL (0-0.2); Basophils % (A) 1 %; Eosinophils # (A) 0.2 k/uL (0-0.7); Eosinophils % (A) 3 %; HCT 29.3 % (39.0-53.0); HGB 9.6 gm/dL (13.0-17.5); Lymphocytes # (A) 0.7 k/uL (1.0-4.8); Lymphocytes % (A) 12 %; MCH 29.7 pg (25.0-35.0); MCHC 32.8 g/dL (31.0-37.0); MCV 90.4 fL (80.0-100.0); Mean Platelet Volume 8.4; Monocytes # (A) 0.4 k/uL (0-1.0); Monocytes % (A) 6 %; Neutrophils # (A) 4.2 k/uL (1.3-7.7); Neutrophils % (A) 76 %; Platelet Count 134 k/uL (150-450); RBC 3.24 m/uL (4.30-5.90); RDW 13.6 % (11.5-15.5); WBC 5.5 k/uL (3.8-10.6)
[2023-09-18 09:24] LABS: ALT 13 U/L (4-49); AST 22 U/L (17-59); African American GFR (CKD) 21 (>60 ml/min/1.73 sqM); Albumin 2.6 g/dL (3.5-5.0); Alkaline Phosphatase 50 U/L (38-126); Anion Gap 1 mmol/L; Blood Urea Nitrogen 23 mg/dL (9-20); Calcium 7.9 mg/dL (8.4-10.2); Carbon Dioxide 34 mmol/L (22-30); Chloride 97 mmol/L (98-107); Glucose 87 mg/dL (74-99); Non-African American GFR(CKD) 18 (>60 ml/min/1.73 sqM); Potassium 3.9 mmol/L (3.5-5.1); Sodium 132 mmol/L (137-145); Total Bilirubin 0.8 mg/dL (0.2-1.3); Total Protein 4.9 g/dL (6.3-8.2)
--- NOTE | 2023-09-18 09:51 | P.PN ---
Subjective Patient is seen in follow-up for end-stage renal disease. He is maintained on hemodialysis on Sunday schedule. No problems with dialysis yesterday. Scheduled to undergo another treatment today. Currently on nasal cannula. Denies chest pain or shortness of breath. Vital signs are stable. General: No acute distress. HEENT: Head exam is unremarkable. On nasal cannula. LUNGS: No audible rhonchi or wheezes. HEART: Rate and Rhythm are regular. ABDOMEN: Nontender. EXTREMITITES: Right AKA noted. Objective - Vital Signs Vital signs: Vital Signs Temp 97.7 F 09/18/23 07:45 Pulse 75 09/18/23 08:05 Resp 21 09/18/23 08:05 BP 143/82 09/18/23 08:05 Pulse Ox 94 L 09/18/23 08:05 FiO2 Intake & Output 09/17/23 09/18/23 09/18/23 18:59 06:59 18:59 Intake Total 87.441 463.442 Output Total 3500 Balance 87.441 -3036.558 Weight 81.647 kg Intake: Intake, IV Titration 87.441 63.442 Amount Heparin Sod,Pork in 0.45% 87.441 63.442 NaCl 25,000 unit In 0.45 % NaCl 1 250ml.bag @ 18 UNITS/KG/HR 14.696 mls/hr IV .Q17H1M [facility] Rx#: [id number] Hemodialysis 400 Output: Hemodialysis 3500 - Labs CBC & Chem 7: 09/18/23 08:10 09/18/23 08:10 Labs: Abnormal Lab Results - Last 24 Hours (Table) 09/17/23 09/17/23 09/18/23 Range/Units 16:16 23:10 08:10 RBC 3.24 L (4.30-5.90) m/uL Hgb 9.6 L D (13.0-17.5) gm/dL Hct 29.3 L (39.0-53.0) % Plt Count 134 L (150-450) k/uL Lymphocytes # 0.7 L (1.0-4.8) k/uL APTT >200.0 H* 64.2 H (22.0-30.0) sec Sodium (137-145) mmol/L Chloride (98-107) mmol/L Carbon Dioxide (22-30) mmol/L BUN (9-20) mg/dL Creatinine (0.66-1.25) mg/dL Calcium (8.4-10.2) mg/dL Total Protein (6.3-8.2) g/dL Albumin (3.5-5.0) g/dL 09/18/23 Range/Units 08:10 RBC (4.30-5.90) m/uL Hgb (13.0-17.5) gm/dL Hct (39.0-53.0) % Plt Count (150-450) k/uL Lymphocytes # (1.0-4.8) k/uL APTT (22.0-30.0) sec Sodium 132 L (137-145) mmol/L Chloride 97 L (98-107) mmol/L Carbon Dioxide 34 H (22-30) mmol/L BUN 23 H (9-20) mg/dL Creatinine 3.18 H (0.66-1.25) mg/dL Calcium 7.9 L (8.4-10.2) mg/dL Total Protein 4.9 L (6.3-8.2) g/dL Albumin 2.6 L (3.5-5.0) g/dL Assessment and Plan Plan: Assessment: 1. End-stage renal disease maintained on hemodialysis on Sunday schedule via permacath. 2. Acute hypoxic respiratory failure. Component of volume overload. No PE noted on VQ scan. 3. Peripheral arterial disease with history of right idtpe-myq-jqri amputation. 4. Hypertensive urgency. Improved. Blood pressure stable. 5. Chronic kidney disease mineral bone disease maintained on PhosLo. 6. Volume overload. Improved with ultrafiltration. 7. Bilateral lower extremity DVTs maintained on heparin drip. Eliquis is noted in his home medication list but unclear if he has been taking it or not. Hematology following. 8. Anemia of chronic kidney disease. Rule out iron deficiency. Plan: Hemodialysis today. Phosphorus level 4.5 dated September 17, 2023. Change IV Lasix to torsemide 40 mg once daily. Check iron studies.
[2023-09-18] MEDS: TORSEMIDE 20 MG TAB PO SCH (10:13)
[2023-09-18] MEDS: HEPARIN SODIUM 1,000 UN/ML (10ML VL) IV PRN (11:03)
--- NOTE | 2023-09-18 12:22 | P.PN ---
Subjective Progress Note Date: 09/18/23 Consult reason: congestive heart failure History of present illness: History of present illness: This is a 78-year-old male patient of Dr. Siegel with past medical history of right vjqil-xjw-nmww amputation, persistent atrial fibrillation, hypertension, hyperlipidemia, coronary artery disease with multiple stents in the past, end- stage renal disease on hemodialysis, PAD with abdominal aortic aneurysm status post EVAR with additional PAD. We have been asked to evaluate the patient for CHF. Patient's states that he has had longstanding shortness of breath that apparently has worsened. He complains of pain between his shoulder blades that has had for many years. He recently started on hemodialysis about 3 weeks ago. He currently denies having chest pain. Patient has had Doppler study of the lower extremities which has not been reported yet. Dr. Juarez discussed case with ER physician and attending. EKG atrial fibrillation at 112 bpm Chest x-ray: Findings consistent with fluid overload. CTA of the chest reveals no diagnostic evidence of pulmonary embolism. Moderate bilateral pleural effusions. Chronic foreign body. Venous Doppler positive for free-floating acute DVT within the right internal jugular vein Echocardiogram performed on 09/11/2023 reveals EF 50 to 55%. Mildly increased left ventricular wall thickness. Moderate to severe biatrial enlargement. Mild right ventricular dilation. Trace mitral regurgitation. No pericardial effusion. WBC 11.6, hemoglobin 11.3, platelet count 186. INR 1.1. D-dimer 10.12. Sodium 131, potassium 4.8, BUN 33 creatinine 4.02. Glucose 130. Lactic acid 0.6. Troponin negative x 1. proBNP 26,900. Home cardiac medications: Amlodipine 10 mg daily, Eliquis 2.5 mg twice daily, atorvastatin 10 mg at bedtime, Coreg 6.25 mg twice daily, digoxin 125 mcg every 48 hours, hydralazine 100 mg 3 times daily, Imdur 30 mg daily, torsemide 40 mg daily. There Lexiscan Cardiolite stress test performed in the office on 04/25/2023 revealed fixed inferior perfusion defect consistent with diaphragmatic attenuation artifact versus infarct. Reversible small size apical perfusion defect consist ent with ischemia. Left ventricular EF 40%. 09/17 Patient is seen today in follow-up and he remains in the emergency center waiting for bed on the cardiac stepdown unit. Heart rate is running in the 60s and 70s, blood pressure is much improved today at 143/82. Pulse ox 94% on 5 L. Yesterday, medication changes were made including increasing Coreg, discontinuing digoxin and IV nitroglycerin. Patient has been continued on IV Lasix but has been transition to torsemide 40 mg daily by nephrology. He has a negative fluid balance. He has been started on a heparin drip due to DVT in the right internal jugular vein. Repeat blood work reveals sodium 132, potassium 3.9, BUN 23 creatinine 3.18. Patient is followed by nephrology and pulmonary medicine and oncology. Oncology has recommended full dose anticoagulation and need to consider risk versus benefit due to patient fall risk. Physical examination: Gen: This is a 78-year-old male in no acute distress VS: reviewed blood pressure 146/90, heart rate 81, pulse ox 94% on room air. HEENT: Head is atraumatic, normocephalic. Pupils equal, round. Sclerae is anicteric. NECK: Supple. No JVD. LUNGS: Clear to auscultation. No wheezes or rhonchi. No intercostal retractions. HEART: Irregular rate and rhythm. No murmur. ABDOMEN: Soft No tenderness. EXTREMITIES: Right bavyh-dyq-rcel amputation. Left lower extremity pulses decreased. No edema. NEUROLOGICAL: Patient is awake, alert and oriented x3. Assessment: Acute hypoxic respiratory failure secondary to acute on chronic diastolic heart failure DVT right internal jugular vein, possible failed Eliquis, Persistent atrial fibrillation End-stage renal disease on hemodialysis Hypertension Hyperlipidemia Coronary artery disease with multiple stents PAD with abdominal aortic aneurysm status post EVAR with additional PAD History of njydg-nqy-ugna amputation on the right Obstructive sleep apnea History of CVA Plan: Continue current cardiac medications Continue oral torsemide Monitor BARRY Daily weights, electrolytes and renal function Continue heparin drip for DVT, Eliquis on hold Further recommendations to follow based upon clinical course Nurse practitioner note has been reviewed, I agree with documented findings and plan of care. Patient was seen and examined. Objective - Vital Signs Vital signs: Vital Signs Temp 97.7 F 09/18/23 07:45 Pulse 75 09/18/23 08:05 Resp 21 09/18/23 08:05 BP 143/82 09/18/23 08:05 Pulse Ox 94 L 09/18/23 08:05 FiO2 Intake & Output 09/17/23 09/18/23 09/18/23 18:59 06:59 18:59 Intake Total 87.441 463.442 Output Total 3500 Balance 87.441 -3036.558 Weight 81.647 kg Intake: Intake, IV Titration 87.441 63.442 Amount Heparin Sod,Pork in 0.45% 87.441 63.442 NaCl 25,000 unit In 0.45 % NaCl 1 250ml.bag @ 18 UNITS/KG/HR 14.696 mls/hr IV .Q17H1M [facility] Rx#: [id number] Hemodialysis 400 Output: Hemodialysis 3500 - Labs CBC & Chem 7: 09/18/23 08:10 09/18/23 08:10 Labs: Abnormal Lab Results - Last 24 Hours (Table) 09/17/23 09/17/23 Range/Units 16:16 23:10 APTT >200.0 H* 64.2 H (22.0-30.0) sec
--- NOTE | 2023-09-18 14:22 | P.PN ---
Subjective Progress Note Date: 09/18/23 This is a 78-year-old male patient who came in to the hospital for worsening shortness of breath. He also developed increased swelling lower extremities. The patient has end-stage renal disease and the patient was started on hemodialysis recently and dialysis was initiated to a right IJ permacath. The patient was discharged from the hospital approximately 9 days ago after being initiated on hemodialysis and the patient was sent to a custodial/rehab facility. Noted the patient was started on hemodialysis on 09/03/2023. He was maintained on hemodialysis 3 times a week, TTS via permacath. The patient came in with worsening shortness of breath. The patient was hypertensive with a BP of 191/95 and a pro BNP level was 26,900 with a troponin of 0.18. BUN was 33 with a creatinine of 4 .02. Sodium level was 131. Coags were unremarkable. Rest of the CBC showed a WBC count of 11.6 with a hemoglobin 11.3.. The chest x-ray was done in the emergency department and showed consistent changes with fluid overload and the patient underwent a CT of the chest that showed no evidence of any pulmonary embolism. There was moderate bilateral pleural effusion and mild CHF and bibasilar consolidation favoring compressive atelectasis. Dopplers were also performed and the patient was found to have a free-floating acute DVT within the right internal jugular vein at central line site with adjacent flow moving blood/developing thrombus. The Doppler of the lower extremities was also done and the patient was found to have an acute nonocclusive DVT involving the left superficial femoral vein and extensive DVT involving the right lower extremity. 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 As such, the patient was started on IV heparin. The patient was seen by nephrology. The patient will have hemodialysis today. Most recent echocardiogram that was done on this patient was on 09/11/2023 and it showed normal LV function, mild increase in left ventricular wall thickness and moderate to severe biatrial enlargement and mild RV dilatation. He is currently on 60 of O2 nasal cannula with a pulse ox of 98%. Blood pressure improved and the most recent BP is 147/81. On today's evaluation of 09/18/2023, I am seeing the patient for a follow-up. The patient is resting comfortably in bed and the patient is undergoing hemodialysis. The goal is to ultrafiltrate this patient for a total of 2 L. Respiratory status is stable and the patient is currently on oxygen and he was been weaned down to 5 L with a pulse ox of 96%. No significant respiratory distress at this point in time. Awake and alert and communicating. White cell count of 5.5 with a hemoglobin 9.6 and a platelet count of 134, BUN is at 23 with a creatinine of 3.1 and sodium levels at 132. The patient is hemodynamically stable and has no specific complaints. Awaiting vascular surgery regarding the clot in his right IJ and the clot that is involving the right-sided permacath. The patient also has a left lower extremity DVT and the patient remains on IV heparin. Hemoglobin remained stable. Objective - Vital Signs Vital signs: Vital Signs Temp 97.6 F 09/18/23 10:04 Pulse 65 09/18/23 11:05 Resp 19 09/18/23 11:05 BP 136/64 09/18/23 11:05 Pulse Ox 95 09/18/23 11:05 FiO2 Intake & Output 09/17/23 09/18/23 09/18/23 18:59 06:59 18:59 Intake Total 87.441 463.442 109.595 Output Total 3500 Balance 87.441 -3036.558 109.595 Weight 81.647 kg Intake: Intake, IV Titration 87.441 63.442 109.595 Amount Heparin Sod,Pork in 0.45% 87.441 63.442 109.595 NaCl 25,000 unit In 0.45 % NaCl 1 250ml.bag @ 18 UNITS/KG/HR 14.696 mls/hr IV .Q17H1M [facility] Rx#: [id number] Hemodialysis 400 Output: Hemodialysis 3500 - Exam Gen: in no apparent distress, resting comfortably in bed, the patient is currently 5 L O2 nasal cannula Eyes: PERRL, no scleral injection or icterus Head exam was generally normal. There was no scleral icterus or corneal arcus. Mucous membranes were moist. Neck: no tracheal deviation, full range of motion Resp: good air exchange, breathing comfortably with no accessory muscle use, no tactile fremitus, crackles throughout the posterior lung wheeler CVS: good distal perfusion x 4, bilateral pitting edema, irregular rhythm GI: soft, NTTP, ND, no hepatosplenomegaly : no suprapubic tenderness, no CVAT, monae catheter not present MSK: no clubbing, no cyanosis, no noted contractures of extremities, right upper extremity pitting edema worse than left upper extremity Skin: no noted rashes, petechiae; temperature of skin is appropriate Neuro: moving all extremities without signs of weakness, CN II-XII intact Psych: cooperative, euthymic mood, insight and judgment intact - Labs CBC & Chem 7: 09/18/23 08:10 09/18/23 08:10 Labs: Abnormal Lab Results - Last 24 Hours (Table) 09/17/23 09/17/23 09/18/23 Range/Units 16:16 23:10 08:10 RBC 3.24 L (4.30-5.90) m/uL Hgb 9.6 L D (13.0-17.5) gm/dL Hct 29.3 L (39.0-53.0) % Plt Count 134 L (150-450) k/uL Lymphocytes # 0.7 L (1.0-4.8) k/uL APTT >200.0 H* 64.2 H (22.0-30.0) sec Sodium (137-145) mmol/L Chloride (98-107) mmol/L Carbon Dioxide (22-30) mmol/L BUN (9-20) mg/dL Creatinine (0.66-1.25) mg/dL Calcium (8.4-10.2) mg/dL Total Protein (6.3-8.2) g/dL Albumin (3.5-5.0) g/dL 09/18/23 09/18/23 Range/Units 08:10 10:15 RBC (4.30-5.90) m/uL Hgb (13.0-17.5) gm/dL Hct (39.0-53.0) % Plt Count (150-450) k/uL Lymphocytes # (1.0-4.8) k/uL APTT 34.1 H (22.0-30.0) sec Sodium 132 L (137-145) mmol/L Chloride 97 L (98-107) mmol/L Carbon Dioxide 34 H (22-30) mmol/L BUN 23 H (9-20) mg/dL Creatinine 3.18 H (0.66-1.25) mg/dL Calcium 7.9 L (8.4-10.2) mg/dL Total Protein 4.9 L (6.3-8.2) g/dL Albumin 2.6 L (3.5-5.0) g/dL Assessment and Plan Plan: Acute hypoxic respiratory failure and the patient is currently on 5 L of O2 nasal cannula. Patient has signs of fluid overload with bilateral pleural effusion consistent with volume overload. CTA of the chest has been completed and the patient has no evidence of any pulmonary embolism. Bilateral pleural effusions secondary to above. The patient underwent hemodialysis yesterday and another session of hemodialysis being done this morning. Bilateral pleural effusions secondary to above End-stage renal disease on hemodialysis 3 times a week, TTS via permacath Acute nonocclusive DVT involving the left superficial valvular vein and extensive DVT involving the right lower extremity Free-floating acute DVT within the right internal jugular vein at the site of a previously inserted Permacath Peripheral artery disease with suspicious external iliac artery/common femoral artery aneurysm/pseudoaneurysm at the anastomosis of the femoral-femoral bypass. The patient has undergone a previous right above-knee amputation Hypertensive urgency, BP is under better control status post nitroglycerin drip Chronic diastolic heart failure Chronic A-fib with some tachycardia at time of admission History of fall with development of pelvic hematoma, hemoglobin is stable and previous CAT scan of the abdomen pelvis that showed no evidence of any endovascular leak Peripheral vascular disease with previous aorto by iliac stent grafting Abdominal aortic aneurysm, stable COPD, currently inactive and stable Coronary disease with previous coronary stenting Previous above-knee amputation on the right Hypertension Depression/PTSD Remote history of DVT Obstructive sleep apnea Diverticulosis 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 Plan: Proceed with hemodialysis today, last hemodialysis session was yesterday Wean FiO2 as tolerated to maintain saturation above 90% currently on 5 IV heparin Consult vascular surgery regarding the right IJ thrombus, consider replacing the catheter Nephrology consultation Blood pressure monitoring and resume antihypertensive medications and the patient is currently on a combination of Coreg and hydralazine and Imdur Will continue to follow.
--- NOTE | 2023-09-18 14:36 | P.PN ---
Subjective Progress Note Date: 09/18/23 Hospital Course: 78-year-old male with medical history of severe PAD status post right AKA, CAD, hypertension, hyperlipidemia, end-stage renal disease on dialysis which was recently initiated via right IJ permacath, paroxysmal atrial fibrillation on apixaban, previously on Coumadin presented for evaluation of dyspnea. Patient was recently discharged from our facility after a 9-day hospital course in which he was initiated on dialysis for acute renal failure and was sent to a shelter for rehab. Patient says that his rehab was going okay when he started develop worsening dyspnea. He also reports increased swelling of all of his extremities. In the emergency room, patient was afebrile, 191/95, heart rate 121, 96% on 6 L of nasal cannula. CBC demonstrated leukocytosis to 11.6, hem oglobin of 11.3. Basic metabolic panel showed sodium of 131, BUN of 33, creatinine of 1.02. Liver function test showed albumin of 3.0. BNP was 26,900, troponin was 0.018. Coags were unremarkable. D-dimer was 10.12. Chest x-ray demonstrated findings of pulmonary congestion with right-sided pleural effusion. EKG demonstrated findings of atrial fibrillation with rapid ventricular response, left axis deviation. 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 CT angiography redemonstrated findings of volume overload with right-sided pleural effusion, trace left-sided pleural effusion, pulmonary congestion, but was negative for pulmonary embolism. Patient was initiated on a nitroglycerin drip for hypertensive urgency, patient was admitted with cardiology, nephrology consult. For findings of DVT, patient was given a dose of Lovenox 80 mg subcu. patient also found to have a free-floating acute DVT within the right IJ vein. Patient on heparin drip. Vascular surgery was consulted. Subjective: Patient seen and examined at bedside. No acute events overnight. Pertinent positives and negatives as discussed above, a complete review of systems was performed and all other systems are negative. Vitals Signs Reviewed. General: Nontoxic, no distress, appears at stated age Derm: Warm, dry Head: Atraumatic, normocephalic, symmetric Eyes: EOMI, no lid lag, anicteric sclera Mouth: No lip lesion, mucus membranes moist Cardiovascular: S1S2 reg, no murmur Lungs: CTA bilateral, no rhonchi, no rales, no accessory muscle use Abdominal: Soft, nontender to palpation, no guarding, no appreciable organomegaly Ext: No gross muscle atrophy, no edema, no contractures Neuro: CN II-XI grossly intact, no focal neuro deficits Psych: Alert, oriented, appropriate affect Data Reviewed Today: Pertinent Labs: Hemoglobin 9.6, platelet 134, sodium 132, creatinine 3.18 Imaging: No new imaging Assessment and Plan: Patient is critically ill, needs close monitoring Prognosis is guarded. Acute hypoxic respiratory failure Acute on chronic diastolic heart failure exacerbation End-stage renal disease Hypertensive urgency Paroxysmal atrial fibrillation - Pulmonology note reviewed, continue to wean oxygen - Nephrology note reviewed, hemodialysis today, IV Lasix changed to torsemide 40 daily - Cardiology note reviewed, continue heparin drip, continue current antihypertensives including amlodipine 10, carvedilol 12.5 twice daily, hydralazine 100 3 times daily, Imdur 30 Unstable acute DVT in right IJ Acute and subacute DVT in bilateral lower extremities - Continue heparin drip, monitor for bleeding - Possible failure of Eliquis, hematology consulted - Vascular surgery consulted for unstable acute DVT DVT ppx: Heparin drip Code status: DNR Anticipated discharge place pending clinical course Anticipated discharge time: Pending clinical course Objective - Vital Signs Vital signs: Vital Signs Temp 97.6 F 09/18/23 14:12 Pulse 81 09/18/23 14:12 Resp 16 09/18/23 14:12 BP 151/78 09/18/23 14:12 Pulse Ox 96 09/18/23 13:51 FiO2 Intake & Output 09/17/23 09/18/23 09/18/23 18:59 06:59 18:59 Intake Total 87.441 463.442 609.595 Output Total 3500 3000 Balance 87.441 -3036.558 -2390.405 Weight 81.647 kg 81.647 kg Intake: Intake, IV Titration 87.441 63.442 109.595 Amount Heparin Sod,Pork in 0.45% 87.441 63.442 109.595 NaCl 25,000 unit In 0.45 % NaCl 1 250ml.bag @ 18 UNITS/KG/HR 14.696 mls/hr IV .Q17H1M [facility] Rx#: [id number] Hemodialysis 400 500 Output: Hemodialysis 3500 3000 - Labs CBC & Chem 7: 09/18/23 08:10 09/18/23 08:10 Labs: Abnormal Lab Results - Last 24 Hours (Table) 09/17/23 09/17/23 09/18/23 Range/Units 16:16 23:10 08:10 RBC 3.24 L (4.30-5.90) m/uL Hgb 9.6 L D (13.0-17.5) gm/dL Hct 29.3 L (39.0-53.0) % Plt Count 134 L (150-450) k/uL Lymphocytes # 0.7 L (1.0-4.8) k/uL APTT >200.0 H* 64.2 H (22.0-30.0) sec Sodium (137-145) mmol/L Chloride (98-107) mmol/L Carbon Dioxide (22-30) mmol/L BUN (9-20) mg/dL Creatinine (0.66-1.25) mg/dL Calcium (8.4-10.2) mg/dL Total Protein (6.3-8.2) g/dL Albumin (3.5-5.0) g/dL 09/18/23 09/18/23 Range/Units 08:10 10:15 RBC (4.30-5.90) m/uL Hgb (13.0-17.5) gm/dL Hct (39.0-53.0) % Plt Count (150-450) k/uL Lymphocytes # (1.0-4.8) k/uL APTT 34.1 H (22.0-30.0) sec Sodium 132 L (137-145) mmol/L Chloride 97 L (98-107) mmol/L Carbon Dioxide 34 H (22-30) mmol/L BUN 23 H (9-20) mg/dL Creatinine 3.18 H (0.66-1.25) mg/dL Calcium 7.9 L (8.4-10.2) mg/dL Total Protein 4.9 L (6.3-8.2) g/dL Albumin 2.6 L (3.5-5.0) g/dL
[2023-09-18 17:01] LABS: % Iron Saturation 25.71 (15.00-50.00)
--- NOTE | 2023-09-18 17:02 | P.GSCN ---
History of Present Illness History of present illness: Six 78-year-old gentleman patient came with shortness of breath patient has history of for chronic renal failure. Patient had a right IJ catheter placed and having dialysis 3 times a week. Patient had a dialysis today when well patient also has right above-knee amputation and deep VT of the right leg and left lower extremity DVT patient is a CT of the chest no evidence of PE there is a clot seen in the right IJ close to the dialysis catheter Patient has a right IJ catheter functioning Chest is clear few crackles the lung bases Abdomen is soft nontender Vascular femorals are 1+ bilateral Plan is patient is on heparin which will be continued we will repeat the ultrasound of the neck and follow with you Past Medical History Past Medical History: Atrial Fibrillation, Deep Vein Thrombosis (DVT), GERD/Reflux, Hearing Disorder / Deafness, Hyperlipidemia, Osteoarthritis (OA), Prostate Disorder, Sleep Apnea/CPAP/BIPAP Additional Past Medical History / Comment(s): DVT Last Myocardial Infarction Date:: UNKNOWN History of Any Multi-Drug Resistant Organisms: None Reported Past Surgical History: Heart Catheterization With Stent Additional Past Surgical History / Comment(s): Femoral bypass right and left, removed steel from right lung and retired up diaphram, right above knee amputee Past Anesthesia/Blood Transfusion Reactions: No Reported Reaction Date of Last Stent Placement:: UNKNOWN Past Psychological History: Depression, PTSD Smoking Status: Former smoker Past Alcohol Use History: Occasional Past Drug Use History: None Reported - Past Family History Mother Family Medical History: Myocardial Infarction ([place]) Father Family Medical History: Dementia Medications and Allergies Home Medications Medication Instructions Recorded Confirmed Type Apixaban [Eliquis] 2.5 mg PO BID@0800,1700 09/02/23 09/17/23 History Cholecalciferol [Vitamin D3 (25 25 mcg PO DAILY@0800 09/02/23 09/17/23 History Mcg = 1000 Iu)] Tamsulosin [Flomax] 0.4 mg PO DAILY@0800 09/02/23 09/17/23 History Calcium Acetate [PhosLo] 667 mg PO BID-W/MEALS tab 09/12/23 09/17/23 Rx Atorvastatin [Lipitor] 10 mg PO HS@2100 09/17/23 09/17/23 History HYDROcodone/APAP 5-325MG [[place] 1 tab PO Q6H PRN 09/17/23 09/17/23 History 5-325] Isosorbide Mononitrate ER [Imdur] 30 mg PO DAILY@0800 09/17/23 09/17/23 History Magnesium Hydroxide [Milk of 7,200 mg PO Q48H PRN 09/17/23 09/17/23 History Magnesia Concentrate] Na Phos,M-B/Na Phos,Di-Ba [Fleet 133 ml RECTAL DAILY PRN 09/17/23 09/17/23 History Adult] Nepro 1 can PO SUMOWEFR@0800 09/17/23 09/17/23 History Nepro 1 can PO TUTHSA@0600 09/17/23 09/17/23 History Torsemide [Demadex] 40 mg PO DAILY@0800 09/17/23 09/17/23 History amLODIPine [Norvasc] 10 mg PO DAILY@0800 09/17/23 09/17/23 History bisacodyL [Dulcolax] 10 mg RECTAL DAILY PRN 09/17/23 09/17/23 History carvediloL [Coreg] 6.25 mg PO BID@0800,1700 09/17/23 09/17/23 History hydrALAZINE HCL [Apresoline] 100 mg PO TID 09/17/23 09/17/23 History Allergies Allergy/AdvReac Type Severity Reaction Status Date / Time No Known Allergies Allergy Verified 09/17/23 09:59 Surgical - Exam Vital Signs Temp Pulse Resp BP Pulse Ox 98.0 F 121 H 24 191/95 96 09/17/23 05:08 09/17/23 05:08 09/17/23 05:08 09/17/23 05:08 09/17/23 05:08 Results - Labs 09/18/23 08:10 09/18/23 08:10 Abnormal Lab Results - Last 24 Hours (Table) 09/17/23 09/18/23 09/18/23 Range/Units 23:10 08:10 08:10 RBC 3.24 L (4.30-5.90) m/uL Hgb 9.6 L D (13.0-17.5) gm/dL Hct 29.3 L (39.0-53.0) % Plt Count 134 L (150-450) k/uL Lymphocytes # 0.7 L (1.0-4.8) k/uL APTT 64.2 H (22.0-30.0) sec Sodium 132 L (137-145) mmol/L Chloride 97 L (98-107) mmol/L Carbon Dioxide 34 H (22-30) mmol/L BUN 23 H (9-20) mg/dL Creatinine 3.18 H (0.66-1.25) mg/dL Calcium 7.9 L (8.4-10.2) mg/dL Ferritin (22.0-322.0) ng/mL Total Protein 4.9 L (6.3-8.2) g/dL Albumin 2.6 L (3.5-5.0) g/dL 09/18/23 09/18/23 Range/Units 08:10 10:15 RBC (4.30-5.90) m/uL Hgb (13.0-17.5) gm/dL Hct (39.0-53.0) % Plt Count (150-450) k/uL Lymphocytes # (1.0-4.8) k/uL APTT 34.1 H (22.0-30.0) sec Sodium (137-145) mmol/L Chloride (98-107) mmol/L Carbon Dioxide (22-30) mmol/L BUN (9-20) mg/dL Creatinine (0.66-1.25) mg/dL Calcium (8.4-10.2) mg/dL Ferritin 486.0 H (22.0-322.0) ng/mL Total Protein (6.3-8.2) g/dL Albumin (3.5-5.0) g/dL Diabetes panel 09/18/23 Range/Units 08:10 Sodium 132 L (137-145) mmol/L Potassium 3.9 (3.5-5.1) mmol/L Chloride 97 L (98-107) mmol/L Carbon Dioxide 34 H (22-30) mmol/L BUN 23 H (9-20) mg/dL Creatinine 3.18 H (0.66-1.25) mg/dL Glucose 87 (74-99) mg/dL Calcium 7.9 L (8.4-10.2) mg/dL AST 22 (17-59) U/L ALT 13 (4-49) U/L Alkaline Phosphatase 50 (38-126) U/L Total Protein 4.9 L (6.3-8.2) g/dL Albumin 2.6 L (3.5-5.0) g/dL Calcium panel 09/18/23 Range/Units 08:10 Calcium 7.9 L (8.4-10.2) mg/dL Albumin 2.6 L (3.5-5.0) g/dL Pituitary panel 09/18/23 Range/Units 08:10 Sodium 132 L (137-145) mmol/L Potassium 3.9 (3.5-5.1) mmol/L Chloride 97 L (98-107) mmol/L Carbon Dioxide 34 H (22-30) mmol/L BUN 23 H (9-20) mg/dL Creatinine 3.18 H (0.66-1.25) mg/dL Glucose 87 (74-99) mg/dL Calcium 7.9 L (8.4-10.2) mg/dL Adrenal panel 09/18/23 Range/Units 08:10 Sodium 132 L (137-145) mmol/L Potassium 3.9 (3.5-5.1) mmol/L Chloride 97 L (98-107) mmol/L Carbon Dioxide 34 H (22-30) mmol/L BUN 23 H (9-20) mg/dL Creatinine 3.18 H (0.66-1.25) mg/dL Glucose 87 (74-99) mg/dL Calcium 7.9 L (8.4-10.2) mg/dL Total Bilirubin 0.8 (0.2-1.3) mg/dL AST 22 (17-59) U/L ALT 13 (4-49) U/L Alkaline Phosphatase 50 (38-126) U/L Total Protein 4.9 L (6.3-8.2) g/dL Albumin 2.6 L (3.5-5.0) g/dL
[2023-09-19] MEDS ORDERED: NON FORMULARY DRUG (Nepro 1 CAN Ml) PO SCH (08:00)
[2023-09-19 09:27] LABS: Basophils % (A) 1 %; Eosinophils # (A) 0.1 k/uL (0-0.7); Eosinophils % (A) 1 %; HCT 29.4 % (39.0-53.0); HGB 10.1 gm/dL (13.0-17.5); Lymphocytes # (A) 0.4 k/uL (1.0-4.8); Lymphocytes % (A) 8 %; MCH 31.4 pg (25.0-35.0); MCHC 34.3 g/dL (31.0-37.0); MCV 91.5 fL (80.0-100.0); Mean Platelet Volume 8.6; Monocytes # (A) 0.3 k/uL (0-1.0); Monocytes % (A) 6 %; Neutrophils # (A) 4.1 k/uL (1.3-7.7); Neutrophils % (A) 83 %; Platelet Count 119 k/uL (150-450); RBC 3.22 m/uL (4.30-5.90); RDW 13.8 % (11.5-15.5); WBC 4.9 k/uL (3.8-10.6)
[2023-09-19 10:01] LABS: ALT 13 U/L (4-49); AST 19 U/L (17-59); African American GFR (CKD) 22 (>60 ml/min/1.73 sqM); Albumin 2.6 g/dL (3.5-5.0); Alkaline Phosphatase 50 U/L (38-126); Anion Gap 5 mmol/L; Blood Urea Nitrogen 23 mg/dL (9-20); Calcium 8.3 mg/dL (8.4-10.2); Carbon Dioxide 30 mmol/L (22-30); Chloride 94 mmol/L (98-107); Glucose 164 mg/dL (74-99); Non-African American GFR(CKD) 19 (>60 ml/min/1.73 sqM); Potassium 3.5 mmol/L (3.5-5.1); Sodium 129 mmol/L (137-145); Total Bilirubin 0.9 mg/dL (0.2-1.3); Total Protein 4.8 g/dL (6.3-8.2)
--- NOTE | 2023-09-19 10:10 | US ---
EXAMINATION TYPE: US venous doppler duplex UE RT DATE OF EXAM: 09/19/2023 COMPARISON: US of 09/17/2023 CLINICAL INDICATION: Male, 78 years old with history of thrombus; Known IJV DVT SIDE PERFORMED: Right Right Arm: Findings unchanged from prior- DVT within right IJV, subclavian veins not visualized due t o large bandage previous catheter is not seen with certainty on today's exam. IMPRESSION: Persistent positive exam for extensive clot\DVT within the right internal jugular vein.
--- NOTE | 2023-09-19 10:20 | P.PN ---
Subjective Progress Note Date: 09/19/23 Hospital Course: 78-year-old male with medical history of severe PAD status post right AKA, CAD, hypertension, hyperlipidemia, end-stage renal disease on dialysis which was recently initiated via right IJ permacath, paroxysmal atrial fibrillation on apixaban, previously on Coumadin presented for evaluation of dyspnea. Patient was recently discharged from our facility after a 9-day hospital course in which he was initiated on dialysis for acute renal failure and was sent to a [facility] for [facility]hab. Patient says that his rehab was going okay when he started develop worsening dyspnea. He also reports increased swelling of all of his extremities. In the emergency room, patient was afebrile, 191/95, heart rate 121, 96% on 6 L of nasal cannula. CBC demonstrated leukocytosis to 11.6, hem oglobin of 11.3. Basic metabolic panel showed sodium of 131, BUN of 33, creatinine of 1.02. Liver function test showed albumin of 3.0. BNP was 26,900, troponin was 0.018. Coags were unremarkable. D-dimer was 10.12. Chest x-ray demonstrated findings of pulmonary congestion with right-sided pleural effusion. EKG demonstrated findings of atrial fibrillation with rapid ventricular response, left axis deviation. 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 CT angiography redemonstrated findings of volume overload with right-sided pleural effusion, trace left-sided pleural effusion, pulmonary congestion, but was negative for pulmonary embolism. Patient was initiated on a nitroglycerin drip for hypertensive urgency, patient was admitted with cardiology, nephrology consult. For findings of DVT, patient was given a dose of Lovenox 80 mg subcu. patient also found to have a free-floating acute DVT within the right IJ vein. Patient on heparin drip. Vascular surgery was consulted. Recommending repeat ultrasound. Repeat ultrasound shows persistent extensive clot/DVT within the right internal jugular vein. Subjective: Patient seen and examined at bedside. No acute events overnight. Claims that breathing is better. Pertinent positives and negatives as discussed above, a complete review of systems was performed and all other systems are negative. Vitals Signs Reviewed. General: Nontoxic, no distress, appears at stated age Derm: Warm, dry, IJ catheter clean, dry, intact Head: Atraumatic, normocephalic, symmetric Eyes: EOMI, no lid lag, anicteric sclera Mouth: No lip lesion, mucus membranes moist Cardiovascular: S1S2 reg, no murmur Lungs: CTA bilateral, no rhonchi, no rales, no accessory muscle use Abdominal: Soft, nontender to palpation, no guarding, no appreciable organomegaly Ext: No gross muscle atrophy, no edema, no contractures, right AKA Neuro: CN II-XI grossly intact, no focal neuro deficits Psych: Alert, oriented, appropriate affect Data Reviewed Today: Pertinent Labs: Hemoglobin 10.1, platelet 119, APTT 63.2, sodium 129, potassium 3.5, creatinine 2.98 Imaging: Repeat venous ultrasound shows extensive, persistent clot/DVT within the right IJ. Assessment and Plan: Patient is critically ill, needs close monitoring Prognosis is guarded. Acute hypoxic respiratory failure Acute on chronic diastolic heart failure exacerbation End-stage renal disease Hypertensive urgency, blood pressure better controlled Paroxysmal atrial fibrillation - Pulmonology following, continue to wean oxygen - Nephrology following, patient on torsemide 40 daily, also on dialysis - Cardiology following, continue heparin drip, continue current antihypertensives including amlodipine 10, carvedilol 12.5 twice daily, hydralazine 100 3 times daily, Imdur 30 Unstable acute DVT in right IJ, likely provoked Acute and subacute DVT in bilateral lower extremities - Continue heparin drip, monitor for bleeding - oncology consulted, Unlikely to be Eliquis failure, would need anticoagulation for 3 to 6 months for probable DVT - Vascular surgery consulted for unstable acute DVT, repeat ultrasound still shows persistent DVT DVT ppx: Heparin drip Code status: DNR Anticipated discharge place pending clinical course Anticipated discharge time: Pending clinical course Objective - Vital Signs Vital signs: Vital Signs Temp 98.4 F 09/19/23 08:00 Pulse 67 09/19/23 08:00 Resp 15 09/19/23 08:00 BP 122/62 09/19/23 08:00 Pulse Ox 96 09/19/23 08:00 FiO2 Intake & Output 09/18/23 09/19/23 09/19/23 18:59 06:59 18:59 Intake Total 897.856 720 240 Output Total 3000 150 Balance -2102.144 570 240 Weight 81.647 kg Intake: Intake, IV Titration 217.856 0 Amount Heparin Sod,Pork in 0.45% 217.856 0 NaCl 25,000 unit In 0.45 % NaCl 1 250ml.bag @ 18 UNITS/KG/HR 14.696 mls/hr IV .Q17H1M [facility] Rx#: [id number] Oral 180 720 240 Hemodialysis 500 Output: Urine 150 Hemodialysis 3000 - Labs CBC & Chem 7: 09/19/23 08:14 09/19/23 08:14 Labs: Abnormal Lab Results - Last 24 Hours (Table) 09/18/23 09/18/23 09/18/23 Range/Units 08:10 10:15 17:03 RBC (4.30-5.90) m/uL Hgb (13.0-17.5) gm/dL Hct (39.0-53.0) % Plt Count (150-450) k/uL Lymphocytes # (1.0-4.8) k/uL APTT 34.1 H 130.6 H* (22.0-30.0) sec Sodium (137-145) mmol/L Chloride (98-107) mmol/L BUN (9-20) mg/dL Creatinine (0.66-1.25) mg/dL Glucose (74-99) mg/dL Calcium (8.4-10.2) mg/dL Iron 54 L (65-175) UG/DL TIBC 210 L (228-460) UG/DL Transferrin 150.0 L (204.0-354.0) mg/dL Ferritin 486.0 H (22.0-322.0) ng/mL Total Protein (6.3-8.2) g/dL Albumin (3.5-5.0) g/dL 09/19/23 09/19/23 09/19/23 Range/Units 00:27 08:14 08:14 RBC 3.22 L (4.30-5.90) m/uL Hgb 10.1 L (13.0-17.5) gm/dL Hct 29.4 L (39.0-53.0) % Plt Count 119 L (150-450) k/uL Lymphocytes # 0.4 L (1.0-4.8) k/uL APTT 60.8 H (22.0-30.0) sec Sodium 129 L (137-145) mmol/L Chloride 94 L (98-107) mmol/L BUN 23 H (9-20) mg/dL Creatinine 2.98 H (0.66-1.25) mg/dL Glucose 164 H (74-99) mg/dL Calcium 8.3 L (8.4-10.2) mg/dL Iron (65-175) UG/DL TIBC (228-460) UG/DL Transferrin (204.0-354.0) mg/dL Ferritin (22.0-322.0) ng/mL Total Protein 4.8 L (6.3-8.2) g/dL Albumin 2.6 L (3.5-5.0) g/dL 09/19/23 Range/Units 08:14 RBC (4.30-5.90) m/uL Hgb (13.0-17.5) gm/dL Hct (39.0-53.0) % Plt Count (150-450) k/uL Lymphocytes # (1.0-4.8) k/uL APTT 63.2 H (22.0-30.0) sec Sodium (137-145) mmol/L Chloride (98-107) mmol/L BUN (9-20) mg/dL Creatinine (0.66-1.25) mg/dL Glucose (74-99) mg/dL Calcium (8.4-10.2) mg/dL Iron (65-175) UG/DL TIBC (228-460) UG/DL Transferrin (204.0-354.0) mg/dL Ferritin (22.0-322.0) ng/mL Total Protein (6.3-8.2) g/dL Albumin (3.5-5.0) g/dL
--- NOTE | 2023-09-19 10:35 | P.PN ---
Subjective Patient is seen in follow-up for end-stage renal disease. He is maintained on hemodialysis on Sunday schedule. No problems with dialysis yesterday. Currently on nasal cannula. Denies chest pain or shortness of breath. Vital signs are stable. General: No acute distress. HEENT: Head exam is unremarkable. On nasal cannula. LUNGS: No audible rhonchi or wheezes. HEART: Rate and Rhythm are regular. ABDOMEN: Nontender. EXTREMITITES: Right AKA noted. Objective - Vital Signs Vital signs: Vital Signs Temp 98.4 F 09/19/23 08:00 Pulse 67 09/19/23 08:00 Resp 15 09/19/23 08:00 BP 122/62 09/19/23 08:00 Pulse Ox 96 09/19/23 08:00 FiO2 Intake & Output 09/18/23 09/19/23 09/19/23 18:59 06:59 18:59 Intake Total 897.856 720 240 Output Total 3000 150 Balance -2102.144 570 240 Weight 81.647 kg Intake: Intake, IV Titration 217.856 0 Amount Heparin Sod,Pork in 0.45% 217.856 0 NaCl 25,000 unit In 0.45 % NaCl 1 250ml.bag @ 18 UNITS/KG/HR 14.696 mls/hr IV .Q17H1M [facility] Rx#: [id number] Oral 180 720 240 Hemodialysis 500 Output: Urine 150 Hemodialysis 3000 - Labs CBC & Chem 7: 09/19/23 08:14 09/19/23 08:14 Labs: Abnormal Lab Results - Last 24 Hours (Table) 09/18/23 09/18/23 09/18/23 Range/Units 08:10 10:15 17:03 RBC (4.30-5.90) m/uL Hgb (13.0-17.5) gm/dL Hct (39.0-53.0) % Plt Count (150-450) k/uL Lymphocytes # (1.0-4.8) k/uL APTT 34.1 H 130.6 H* (22.0-30.0) sec Sodium (137-145) mmol/L Chloride (98-107) mmol/L BUN (9-20) mg/dL Creatinine (0.66-1.25) mg/dL Glucose (74-99) mg/dL Calcium (8.4-10.2) mg/dL Iron 54 L (65-175) UG/DL TIBC 210 L (228-460) UG/DL Transferrin 150.0 L (204.0-354.0) mg/dL Ferritin 486.0 H (22.0-322.0) ng/mL Total Protein (6.3-8.2) g/dL Albumin (3.5-5.0) g/dL 09/19/23 09/19/23 09/19/23 Range/Units 00:27 08:14 08:14 RBC 3.22 L (4.30-5.90) m/uL Hgb 10.1 L (13.0-17.5) gm/dL Hct 29.4 L (39.0-53.0) % Plt Count 119 L (150-450) k/uL Lymphocytes # 0.4 L (1.0-4.8) k/uL APTT 60.8 H (22.0-30.0) sec Sodium 129 L (137-145) mmol/L Chloride 94 L (98-107) mmol/L BUN 23 H (9-20) mg/dL Creatinine 2.98 H (0.66-1.25) mg/dL Glucose 164 H (74-99) mg/dL Calcium 8.3 L (8.4-10.2) mg/dL Iron (65-175) UG/DL TIBC (228-460) UG/DL Transferrin (204.0-354.0) mg/dL Ferritin (22.0-322.0) ng/mL Total Protein 4.8 L (6.3-8.2) g/dL Albumin 2.6 L (3.5-5.0) g/dL 09/19/23 Range/Units 08:14 RBC (4.30-5.90) m/uL Hgb (13.0-17.5) gm/dL Hct (39.0-53.0) % Plt Count (150-450) k/uL Lymphocytes # (1.0-4.8) k/uL APTT 63.2 H (22.0-30.0) sec Sodium (137-145) mmol/L Chloride (98-107) mmol/L BUN (9-20) mg/dL Creatinine (0.66-1.25) mg/dL Glucose (74-99) mg/dL Calcium (8.4-10.2) mg/dL Iron (65-175) UG/DL TIBC (228-460) UG/DL Transferrin (204.0-354.0) mg/dL Ferritin (22.0-322.0) ng/mL Total Protein (6.3-8.2) g/dL Albumin (3.5-5.0) g/dL Assessment and Plan Plan: Assessment: 1. End-stage renal disease maintained on hemodialysis on Sunday schedule via permacath. 2. Acute hypoxic respiratory failure. Component of volume overload. No PE noted on VQ scan. 3. Peripheral arterial disease with history of right [id number] amputation. 4. Hypertensive urgency. Improved. Blood pressure stable. 5. Chronic kidney disease mineral bone disease maintained on PhosLo. 6. Volume overload. Improved with ultrafiltration. 7. Bilateral lower extremity DVTs maintained on heparin drip. Eliquis is noted in his home medication list but unclear if he has been taking it or not. Hematology following. 8. Anemia of chronic kidney disease. Iron replete. 9. Hyponatremia secondary to CKD. Plan: Hemodialysis tomorrow. Phosphorus level 4.5 dated September 17, 2023. Maintain torsemide. Add Aranesp. Replace potassium. Add 1200 cc fluid restriction.
--- NOTE | 2023-09-19 11:01 | P.PN ---
Subjective Progress Note Date: 09/19/23 This is a 78-year-old male patient who came in to the hospital for worsening shortness of breath. He also developed increased swelling lower extremities. The patient has end-stage renal disease and the patient was started on hemodialysis recently and dialysis was initiated to a right IJ permacath. The patient was discharged from the hospital approximately 9 days ago after being initiated on hemodialysis and the patient was sent to a correction/rehab facility. Noted the patient was started on hemodialysis on 09/03/2023. He was maintained on hemodialysis 3 times a week, TTS via permacath. The patient came in with worsening shortness of breath. The patient was hypertensive with a BP of 191/95 and a pro BNP level was 26,900 with a troponin of 0.18. BUN was 33 with a creatinine of 4 .02. Sodium level was 131. Coags were unremarkable. Rest of the CBC showed a WBC count of 11.6 with a hemoglobin 11.3.. The chest x-ray was done in the emergency department and showed consistent changes with fluid overload and the patient underwent a CT of the chest that showed no evidence of any pulmonary embolism. There was moderate bilateral pleural effusion and mild CHF and bibasilar consolidation favoring compressive atelectasis. Dopplers were also performed and the patient was found to have a free-floating acute DVT within the right internal jugular vein at central line site with adjacent flow moving blood/developing thrombus. The Doppler of the lower extremities was also done and the patient was found to have an acute nonocclusive DVT involving the left superficial femoral vein and extensive DVT involving the right lower extremity. 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 As such, the patient was started on IV heparin. The patient was seen by nephrology. The patient will have hemodialysis today. Most recent echocardiogram that was done on this patient was on 09/11/2023 and it showed normal LV function, mild increase in left ventricular wall thickness and moderate to severe biatrial enlargement and mild RV dilatation. He is currently on 60 of O2 nasal cannula with a pulse ox of 98%. Blood pressure improved and the most recent BP is 147/81. On today's evaluation of 09/18/2023, I am seeing the patient for a follow-up. The patient is resting comfortably in bed and the patient is undergoing hemodialysis. The goal is to ultrafiltrate this patient for a total of 2 L. Respiratory status is stable and the patient is currently on oxygen and he was been weaned down to 5 L with a pulse ox of 96%. No significant respiratory distress at this point in time. Awake and alert and communicating. White cell count of 5.5 with a hemoglobin 9.6 and a platelet count of 134, BUN is at 23 with a creatinine of 3.1 and sodium levels at 132. The patient is hemodynamically stable and has no specific complaints. Awaiting vascular surgery regarding the clot in his right IJ and the clot that is involving the right-sided permacath. The patient also has a left lower extremity DVT and the patient remains on IV heparin. Hemoglobin remained stable. On today's evaluation of 09/19/2023, the patient is awake and alert. He underwent hemodialysis yesterday. He is no significant respiratory distress and his BP is under better control. Noted the patient undergoes hemodialysis 3 times a week, TTS. He remains on oxygen by nasal cannula and should be able to wean down. He is currently on 5 L with a pulse ox of 96 to 97%. White cell count is at 4.9 with a hemoglobin 10.1 and a platelet count of 119. Sodium is at 129, BUN is at 23 with a creatinine of 2.9. The patient will have another ultrasound of the right upper extremity and the neck to reevaluate the right IJ clot. Vascular surgery has also been involved in the case and the patient rem ains on IV heparin for now. Remains on Coreg. Remains on Lipitor. Remains on hydralazine 100 mg 3 times daily and 25 mg on a as needed basis. Remains on Coreg 12.5 mg twice a day. Remains on Imdur 30 mg p.o. daily. Remains on torsemide 40 mg p.o. on a daily basis. Remains on Norvasc 10 mg p.o. daily. Objective - Vital Signs Vital signs: Vital Signs Temp 98.4 F 09/19/23 08:00 Pulse 67 09/19/23 08:00 Resp 15 09/19/23 08:00 BP 122/62 09/19/23 08:00 Pulse Ox 96 09/19/23 08:00 FiO2 Intake & Output 04/09/24 04/10/24 04/10/24 18:59 06:59 18:59 Intake Total 897.856 720 240 Output Total 3000 150 Balance -2102.144 570 240 Weight 81.647 kg Intake: Intake, IV Titration 217.856 0 Amount Heparin Sod,Pork in 0.45% 217.856 0 NaCl 25,000 unit In 0.45 % NaCl 1 250ml.bag @ 18 UNITS/KG/HR 14.696 mls/hr IV .Q17H1M [facility] Rx#: [id number] Oral 180 720 240 Hemodialysis 500 Output: Urine 150 Hemodialysis 3000 - Exam Gen: in no apparent distress, resting comfortably in bed, the patient is currently 5 L O2 nasal cannula Eyes: PERRL, no scleral injection or icterus Head exam was generally normal. There was no scleral icterus or corneal arcus. Mucous membranes were moist. Neck: no tracheal deviation, full range of motion Resp: good air exchange, breathing comfortably with no accessory muscle use, no tactile fremitus, crackles throughout the posterior lung wheeler CVS: good distal perfusion x 4, bilateral pitting edema, irregular rhythm GI: soft, NTTP, ND, no hepatosplenomegaly : no suprapubic tenderness, no CVAT, monae catheter not present MSK: no clubbing, no cyanosis, no noted contractures of extremities, right upper extremity pitting edema worse than left upper extremity Skin: no noted rashes, petechiae; temperature of skin is appropriate Neuro: moving all extremities without signs of weakness, CN II-XII intact Psych: cooperative, euthymic mood, insight and judgment intact - Labs CBC & Chem 7: 09/19/23 08:14 09/19/23 08:14 Labs: Abnormal Lab Results - Last 24 Hours (Table) 09/18/23 09/18/23 09/18/23 Range/Units 08:10 08:10 10:15 APTT 34.1 H (22.0-30.0) sec Sodium 132 L (137-145) mmol/L Chloride 97 L (98-107) mmol/L Carbon Dioxide 34 H (22-30) mmol/L BUN 23 H (9-20) mg/dL Creatinine 3.18 H (0.66-1.25) mg/dL Calcium 7.9 L (8.4-10.2) mg/dL Iron 54 L (65-175) UG/DL TIBC 210 L (228-460) UG/DL Transferrin 150.0 L (204.0-354.0) mg/dL Ferritin 486.0 H (22.0-322.0) ng/mL Total Protein 4.9 L (6.3-8.2) g/dL Albumin 2.6 L (3.5-5.0) g/dL 09/18/23 09/19/23 Range/Units 17:03 00:27 APTT 130.6 H* 60.8 H (22.0-30.0) sec Sodium (137-145) mmol/L Chloride (98-107) mmol/L Carbon Dioxide (22-30) mmol/L BUN (9-20) mg/dL Creatinine (0.66-1.25) mg/dL Calcium (8.4-10.2) mg/dL Iron (65-175) UG/DL TIBC (228-460) UG/DL Transferrin (204.0-354.0) mg/dL Ferritin (22.0-322.0) ng/mL Total Protein (6.3-8.2) g/dL Albumin (3.5-5.0) g/dL Assessment and Plan Plan: Acute hypoxic respiratory failure and the patient is currently on 5 L of O2 nasal cannula. Patient has signs of fluid overload with bilateral pleural effusion consistent with volume overload. CTA of the chest has been completed and the patient has no evidence of any pulmonary embolism. Bilateral pleural effusions secondary to above. The patient underwent hemodialysis yesterday and oxygenation is stable and the patient is currently on 5 L O2 nasal cannula to be further weaned down. Bilateral pleural effusions secondary to above End-stage renal disease on hemodialysis 3 times a week, TTS via permacath Acute nonocclusive DVT involving the left superficial valvular vein and extensive DVT involving the right lower extremity Free-floating acute DVT within the right internal jugular vein at the site of a previously inserted Permacath, awaiting a repeat ultrasound. The patient remai ns on IV heparin. 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 Plan: y Wean FiO2 as tolerated to maintain saturation above 90% currently on 5 IV heparin Reevaluated by another Doppler of the right upper extremity in the neck area. This is in regards to the right internal jugular DVT. The patient remains on IV heparin. Consult vascular surgery regarding the right IJ thrombus, consider replacing the catheter Nephrology consultation Blood pressure monitoring and resume antihypertensive medications and the patient is currently on a combination of Coreg and hydralazine and Imdur and Norvasc Will continue to follow.
[2023-09-19 11:39] VITALS: BMI 24.4
[2023-09-19] MEDS: POTASSIUM CHLORIDE ER 20 MEQ TAB.ER PO STA (11:52)
[2023-09-19] MEDS: DARBEPOETIN ALFA 40 MCG/0.4 ML SYRINGE SQ SCH (11:52)
--- NOTE | 2023-09-19 13:56 | P.PN ---
Subjective Progress Note Date: 09/19/23 Consult reason: congestive heart failure History of present illness: History of present illness: This is a 78-year-old male patient of Dr. Siegel with past medical history of right qmnpd-[id number] amputation, persistent atrial fibrillation, hypertension, hyperlipidemia, coronary artery disease with multiple stents in the past, end- stage renal disease on hemodialysis, PAD with abdominal aortic aneurysm status post EVAR with additional PAD. We have been asked to evaluate the patient for CHF. Patient's states that he has had longstanding shortness of breath that apparently has worsened. He complains of pain between his shoulder blades that has had for many years. He recently started on hemodialysis about 3 weeks ago. He currently denies having chest pain. Patient has had Doppler study of the lower extremities which has not been reported yet. Dr. Juarez discussed case with ER physician and attending. EKG atrial fibrillation at 112 bpm Chest x-ray: Findings consistent with fluid overload. CTA of the chest reveals no diagnostic evidence of pulmonary embolism. Moderate bilateral pleural effusions. Chronic foreign body. Venous Doppler positive for free-floating acute DVT within the right internal jugular vein Echocardiogram performed on 09/11/2023 reveals EF 50 to 55%. Mildly increased left ventricular wall thickness. Moderate to severe biatrial enlargement. Mild right ventricular dilation. Trace mitral regurgitation. No pericardial effusion. WBC 11.6, hemoglobin 11.3, platelet count 186. INR 1.1. D-dimer 10.12. Sodium 131, potassium 4.8, BUN 33 creatinine 4.02. Glucose 130. Lactic acid 0.6. Troponin negative x 1. proBNP 26,900. Home cardiac medications: Amlodipine 10 mg daily, Eliquis 2.5 mg twice daily, atorvastatin 10 mg at bedtime, Coreg 6.25 mg twice daily, digoxin 125 mcg every 48 hours, hydralazine 100 mg 3 times daily, Imdur 30 mg daily, torsemide 40 mg daily. There Lexiscan Cardiolite stress test performed in the office on 04/25/2023 revealed fixed inferior perfusion defect consistent with diaphragmatic attenuation artifact versus infarct. Reversible small size apical perfusion defect consist ent with ischemia. Left ventricular EF 40%. 09/17 Patient is seen today in follow-up and he remains in the emergency center waiting for bed on the cardiac stepdown unit. Heart rate is running in the 60s and 70s, blood pressure is much improved today at 143/82. Pulse ox 94% on 5 L. Yesterday, medication changes were made including increasing Coreg, discontinuing digoxin and IV nitroglycerin. Patient has been continued on IV Lasix but has been transition to torsemide 40 mg daily by nephrology. He has a negative fluid balance. He has been started on a heparin drip due to DVT in the right internal jugular vein. Repeat blood work reveals sodium 132, potassium 3.9, BUN 23 creatinine 3.18. Patient is followed by nephrology and pulmonary medicine and oncology. Oncology has recommended full dose anticoagulation and need to consider risk versus benefit due to patient fall risk. Physical examination: Gen: This is a 78-year-old male in no acute distress VS: reviewed HEENT: Head is atraumatic, normocephalic. Pupils equal, round. Sclerae is anicteric. NECK: Supple. No JVD. LUNGS: Clear to auscultation. No wheezes or rhonchi. No intercostal retractions. HEART: Irregular rate and rhythm. No murmur. ABDOMEN: Soft No tenderness. EXTREMITIES: Right hsmwa-bsp-vmqs amputation. Left lower extremity pulses decreased. No edema. NEUROLOGICAL: Patient is awake, alert and oriented x3. Assessment: Acute hypoxic respiratory failure secondary to acute on chronic diastolic heart failure DVT right internal jugular vein, possible failed Eliquis, Persistent atrial fibrillation End-stage renal disease on hemodialysis Hypertension Hyperlipidemia Coronary artery disease with multiple stents PAD with abdominal aortic aneurysm status post EVAR with additional PAD History of gpxls-ekj-dvjy amputation on the right Obstructive sleep apnea History of CVA Plan: Continue current cardiac medications Continue oral torsemide Monitor BARRY Daily weights, electrolytes and renal function Continue heparin drip for DVT, Eliquis on hold No further cardiac workup at this time. At the time of discharge, patient may follow-up with Dr. Siegel in the office in 1 to 2 weeks. Nurse practitioner note has been reviewed, I agree with documented findings and plan of care. Patient was seen and examined. Objective - Vital Signs Vital signs: Vital Signs Temp 98.4 F 09/19/23 08:00 Pulse 67 09/19/23 08:00 Resp 15 09/19/23 08:00 BP 122/62 09/19/23 08:00 Pulse Ox 96 09/19/23 08:00 FiO2 Intake & Output 04/03/0409/19/23 09/19/23 18:59 06:59 18:59 Intake Total 897.856 720 240 Output Total 3000 150 Balance -2102.144 570 240 Weight 81.647 kg Intake: Intake, IV Titration 217.856 0 Amount Heparin Sod,Pork in 0.45% 217.856 0 NaCl 25,000 unit In 0.45 % NaCl 1 250ml.bag @ 18 UNITS/KG/HR 14.696 mls/hr IV .Q17H1M [facility] Rx#: [id number] Oral 180 720 240 Hemodialysis 500 Output: Urine 150 Hemodialysis 3000 - Labs CBC & Chem 7: 09/19/23 08:14 09/19/23 08:14 Labs: Abnormal Lab Results - Last 24 Hours (Table) 09/18/23 09/18/23 09/18/23 Range/Units 08:10 10:15 17:03 RBC (4.30-5.90) m/uL Hgb (13.0-17.5) gm/dL Hct (39.0-53.0) % Plt Count (150-450) k/uL Lymphocytes # (1.0-4.8) k/uL APTT 34.1 H 130.6 H* (22.0-30.0) sec Sodium (137-145) mmol/L Chloride (98-107) mmol/L BUN (9-20) mg/dL Creatinine (0.66-1.25) mg/dL Glucose (74-99) mg/dL Calcium (8.4-10.2) mg/dL Iron 54 L (65-175) UG/DL TIBC 210 L (228-460) UG/DL Transferrin 150.0 L (204.0-354.0) mg/dL Ferritin 486.0 H (22.0-322.0) ng/mL Total Protein (6.3-8.2) g/dL Albumin (3.5-5.0) g/dL 09/19/23 09/19/23 09/19/23 Range/Units 00:27 08:14 08:14 RBC 3.22 L (4.30-5.90) m/uL Hgb 10.1 L (13.0-17.5) gm/dL Hct 29.4 L (39.0-53.0) % Plt Count 119 L (150-450) k/uL Lymphocytes # 0.4 L (1.0-4.8) k/uL APTT 60.8 H (22.0-30.0) sec Sodium 129 L (137-145) mmol/L Chloride 94 L (98-107) mmol/L BUN 23 H (9-20) mg/dL Creatinine 2.98 H (0.66-1.25) mg/dL Glucose 164 H (74-99) mg/dL Calcium 8.3 L (8.4-10.2) mg/dL Iron (65-175) UG/DL TIBC (228-460) UG/DL Transferrin (204.0-354.0) mg/dL Ferritin (22.0-322.0) ng/mL Total Protein 4.8 L (6.3-8.2) g/dL Albumin 2.6 L (3.5-5.0) g/dL 09/19/23 Range/Units 08:14 RBC (4.30-5.90) m/uL Hgb (13.0-17.5) gm/dL Hct (39.0-53.0) % Plt Count (150-450) k/uL Lymphocytes # (1.0-4.8) k/uL APTT 63.2 H (22.0-30.0) sec Sodium (137-145) mmol/L Chloride (98-107) mmol/L BUN (9-20) mg/dL Creatinine (0.66-1.25) mg/dL Glucose (74-99) mg/dL Calcium (8.4-10.2) mg/dL Iron (65-175) UG/DL TIBC (228-460) UG/DL Transferrin (204.0-354.0) mg/dL Ferritin (22.0-322.0) ng/mL Total Protein (6.3-8.2) g/dL Albumin (3.5-5.0) g/dL
--- NOTE | 2023-09-19 16:49 | P.PN ---
Progress Note - Text 78-year-old gentleman history of chronic renal failure patient has a dialysis through the right IJ catheter patient also had a right above-knee amputation in the past patient has a bilateral lower extremity DVT patient is on heparin. Discussed with nephrology patient is going to have dialysis tomorrow we will continue that right IJ for dialysis patient is on anticoagulation will be continued will follow with you
--- NOTE | 2023-09-20 10:00 | P.PN ---
Subjective Progress Note Date: 09/20/23 Hospital Course: 78-year-old male with medical history of severe PAD status post right AKA, CAD, hypertension, hyperlipidemia, end-stage renal disease on dialysis which was recently initiated via right IJ permacath, paroxysmal atrial fibrillation on apixaban, previously on Coumadin presented for evaluation of dyspnea. Patient was recently discharged from our facility after a 9-day hospital course in which he was initiated on dialysis for acute renal failure and was sent to a custodial for rehab. Patient says that his rehab was going okay when he started develop worsening dyspnea. He also reports increased swelling of all of his extremities. In the emergency room, patient was afebrile, 191/95, heart rate 121, 96% on 6 L of nasal cannula. CBC demonstrated leukocytosis to 11.6, hem oglobin of 11.3. Basic metabolic panel showed sodium of 131, BUN of 33, creatinine of 1.02. Liver function test showed albumin of 3.0. BNP was 26,900, troponin was 0.018. Coags were unremarkable. D-dimer was 10.12. Chest x-ray demonstrated findings of pulmonary congestion with right-sided pleural effusion. EKG demonstrated findings of atrial fibrillation with rapid ventricular response, left axis deviation. 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 CT angiography redemonstrated findings of volume overload with right-sided pleural effusion, trace left-sided pleural effusion, pulmonary congestion, but was negative for pulmonary embolism. Patient was initiated on a nitroglycerin drip for hypertensive urgency, patient was admitted with cardiology, nephrology consult. For findings of DVT, patient was given a dose of Lovenox 80 mg subcu. patient also found to have a free-floating acute DVT within the right IJ vein. Patient on heparin drip. Vascular surgery was consulted. Recommending repeat ultrasound. Repeat ultrasound shows persistent extensive clot/DVT within the right internal jugular vein. No interventions planned. Heparin drip discontinued, patient started on VTE protocol Eliquis. Subjective: Patient seen and examined at bedside. No acute events overnight. Claims that breathing is better. Pertinent positives and negatives as discussed above, a complete review of systems was performed and all other systems are negative. Vitals Signs Reviewed. General: Nontoxic, no distress, appears at stated age Derm: Warm, dry, IJ catheter clean, dry, intact Head: Atraumatic, normocephalic, symmetric Eyes: EOMI, no lid lag, anicteric sclera Mouth: No lip lesion, mucus membranes moist Cardiovascular: S1S2 reg, no murmur Lungs: CTA bilateral, no rhonchi, no rales, no accessory muscle use Abdominal: Soft, nontender to palpation, no guarding, no appreciable organomegaly Ext: No gross muscle atrophy, no edema, no contractures, right AKA Neuro: CN II-XI grossly intact, no focal neuro deficits Psych: Alert, oriented, appropriate affect Data Reviewed Today: Pertinent Labs: CBC and BMP and magnesium pending, will be reviewed when available Imaging: No new imaging Assessment and Plan: Acute hypoxic respiratory failure, back to baseline Acute on chronic diastolic heart failure exacerbation End-stage renal disease with hypervolemia, on hemodialysis Hypertensive urgency, blood pressure better controlled Paroxysmal atrial fibrillation - Pulmonology following, continue to wean oxygen - Nephrology following, patient on torsemide 40 daily, also on dialysis - Cardiology following, continue current antihypertensives including amlodipine 10, carvedilol 12.5 twice daily, hydralazine 100 3 times daily, Imdur 30 outpatient follow-up Unstable acute DVT in right IJ, likely provoked Acute and subacute DVT in bilateral lower extremities -Heparin drip discontinued, started on Eliquis, VTE protocol - oncology consulted, Unlikely to be Eliquis failure, would need anticoagulation for 3 to 6 months for provoked DVT - Vascular surgery following, no interventions planned DVT ppx: Eliquis Code status: Full code Anticipated discharge place: pending clinical course Anticipated discharge time: Pending clinical course Objective - Vital Signs Vital signs: Vital Signs Temp 98.9 F 09/20/23 04:00 Pulse 75 09/20/23 04:00 Resp 18 09/20/23 04:00 BP 144/86 09/20/23 04:00 Pulse Ox 96 09/20/23 09:06 FiO2 Intake & Output 09/19/23 09/20/23 09/20/23 18:59 06:59 18:59 Intake Total 358 240 240 Output Total 200 Balance 158 240 240 Weight 81.647 kg Intake: Oral 358 240 240 Output: Urine 200 - Labs CBC & Chem 7: 09/19/23 08:14 09/19/23 08:14 Labs: Abnormal Lab Results - Last 24 Hours (Table) 09/19/23 Range/Units 08:14 Sodium 129 L (137-145) mmol/L Chloride 94 L (98-107) mmol/L BUN 23 H (9-20) mg/dL Creatinine 2.98 H (0.66-1.25) mg/dL Glucose 164 H (74-99) mg/dL Calcium 8.3 L (8.4-10.2) mg/dL Total Protein 4.8 L (6.3-8.2) g/dL Albumin 2.6 L (3.5-5.0) g/dL
[2023-09-20 10:25] LABS: Basophils % (A) 1 %; Eosinophils # (A) 0.1 k/uL (0-0.7); Eosinophils % (A) 2 %; HCT 30.2 % (39.0-53.0); HGB 9.8 gm/dL (13.0-17.5); Lymphocytes # (A) 0.4 k/uL (1.0-4.8); Lymphocytes % (A) 12 %; MCH 29.5 pg (25.0-35.0); MCHC 32.4 g/dL (31.0-37.0); MCV 90.9 fL (80.0-100.0); Mean Platelet Volume 8.4; Monocytes # (A) 0.4 k/uL (0-1.0); Monocytes % (A) 11 %; Neutrophils # (A) 2.5 k/uL (1.3-7.7); Neutrophils % (A) 72 %; Platelet Count 126 k/uL (150-450); RBC 3.33 m/uL (4.30-5.90); RDW 13.7 % (11.5-15.5); WBC 3.5 k/uL (3.8-10.6)
[2023-09-20] MEDS: Apixaban Initiation Dose--VTE 5 MG TAB PO SCH (10:46)
--- NOTE | 2023-09-20 11:02 | P.PN ---
Subjective Patient is seen in follow-up for end-stage renal disease. He is maintained on hemodialysis on Sunday schedule. Tolerating dialysis well. Hemodynamically stable. Currently on nasal cannula. Denies chest pain or shortness of breath. Vital signs are stable. General: No acute distress. HEENT: Head exam is unremarkable. On nasal cannula. LUNGS: No audible rhonchi or wheezes. HEART: Rate and Rhythm are regular. ABDOMEN: Nontender. EXTREMITITES: Right AKA noted. Objective - Vital Signs Vital signs: Vital Signs Temp 97.7 F 09/20/23 09:20 Pulse 64 09/20/23 09:20 Resp 17 09/20/23 09:20 BP 127/64 09/20/23 09:20 Pulse Ox 94 L 09/20/23 09:20 FiO2 Intake & Output 09/19/23 09/20/23 09/20/23 18:59 06:59 18:59 Intake Total 358 240 240 Output Total 200 Balance 158 240 240 Weight 81.647 kg Intake: Oral 358 240 240 Output: Urine 200 - Labs CBC & Chem 7: 09/20/23 09:50 09/19/23 08:14 Labs: Abnormal Lab Results - Last 24 Hours (Table) 09/20/23 09/20/23 Range/Units 09:50 09:50 WBC 3.5 L (3.8-10.6) k/uL RBC 3.33 L (4.30-5.90) m/uL Hgb 9.8 L (13.0-17.5) gm/dL Hct 30.2 L (39.0-53.0) % Plt Count 126 L (150-450) k/uL Lymphocytes # 0.4 L (1.0-4.8) k/uL APTT 66.5 H (22.0-30.0) sec Assessment and Plan Plan: Assessment: 1. End-stage renal disease maintained on hemodialysis on Sunday schedule via permacath. 2. Acute hypoxic respiratory failure. Component of volume overload. No PE noted on VQ scan. 3. Peripheral arterial disease with history of right woqfp-qhw-bjuj amputation. 4. Hypertensive urgency. Improved. Blood pressure stable. 5. Chronic kidney disease mineral bone disease maintained on PhosLo. Phosphorus level 4.5 dated September 17, 2023. 6. Volume overload. Improved with ultrafiltration. 7. Bilateral lower extremity DVTs maintained on anticoagulation. Hematology following. 8. Anemia of chronic kidney disease. Iron replete. On Aranesp. 9. Hyponatremia secondary to CKD. Plan: Currently seen while undergoing hemodialysis. Next treatment Sunday. Phosphorus level 4.5 dated September 17, 2023. Maintain torsemide. Encouraged oral intake. Maintain fluid restriction.
[2023-09-20] MEDS: HYDROcodone/APAP 5-325MG 1 EACH TAB PO PRN (12:34)
--- NOTE | 2023-09-20 13:08 | P.PN ---
Subjective Progress Note Date: 09/20/23 This is a 78-year-old male patient who came in to the hospital for worsening shortness of breath. He also developed increased swelling lower extremities. The patient has end-stage renal disease and the patient was started on hemodialysis recently and dialysis was initiated to a right IJ permacath. The patient was discharged from the hospital approximately 9 days ago after being initiated on hemodialysis and the patient was sent to a detention/rehab facility. Noted the patient was started on hemodialysis on 09/03/2023. He was maintained on hemodialysis 3 times a week, TTS via permacath. The patient came in with worsening shortness of breath. The patient was hypertensive with a BP of 191/95 and a pro BNP level was 26,900 with a troponin of 0.18. BUN was 33 with a creatinine of 4 .02. Sodium level was 131. Coags were unremarkable. Rest of the CBC showed a WBC count of 11.6 with a hemoglobin 11.3.. The chest x-ray was done in the emergency department and showed consistent changes with fluid overload and the patient underwent a CT of the chest that showed no evidence of any pulmonary embolism. There was moderate bilateral pleural effusion and mild CHF and bibasilar consolidation favoring compressive atelectasis. Dopplers were also performed and the patient was found to have a free-floating acute DVT within the right internal jugular vein at central line site with adjacent flow moving blood/developing thrombus. The Doppler of the lower extremities was also done and the patient was found to have an acute nonocclusive DVT involving the left superficial femoral vein and extensive DVT involving the right lower extremity. 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 As such, the patient was started on IV heparin. The patient was seen by nephrology. The patient will have hemodialysis today. Most recent echocardiogram that was done on this patient was on 09/11/2023 and it showed normal LV function, mild increase in left ventricular wall thickness and moderate to severe biatrial enlargement and mild RV dilatation. He is currently on 60 of O2 nasal cannula with a pulse ox of 98%. Blood pressure improved and the most recent BP is 147/81. On today's evaluation of 09/18/2023, I am seeing the patient for a follow-up. The patient is resting comfortably in bed and the patient is undergoing hemodialysis. The goal is to ultrafiltrate this patient for a total of 2 L. Respiratory status is stable and the patient is currently on oxygen and he was been weaned down to 5 L with a pulse ox of 96%. No significant respiratory distress at this point in time. Awake and alert and communicating. White cell count of 5.5 with a hemoglobin 9.6 and a platelet count of 134, BUN is at 23 with a creatinine of 3.1 and sodium levels at 132. The patient is hemodynamically stable and has no specific complaints. Awaiting vascular surgery regarding the clot in his right IJ and the clot that is involving the right-sided permacath. The patient also has a left lower extremity DVT and the patient remains on IV heparin. Hemoglobin remained stable. On today's evaluation of 09/19/2023, the patient is awake and alert. He underwent hemodialysis yesterday. He is no significant respiratory distress and his BP is under better control. Noted the patient undergoes hemodialysis 3 times a week, TTS. He remains on oxygen by nasal cannula and should be able to wean down. He is currently on 5 L with a pulse ox of 96 to 97%. White cell count is at 4.9 with a hemoglobin 10.1 and a platelet count of 119. Sodium is at 129, BUN is at 23 with a creatinine of 2.9. The patient will have another ultrasound of the right upper extremity and the neck to reevaluate the right IJ clot. Vascular surgery has also been involved in the case and the patient rem ains on IV heparin for now. Remains on Coreg. Remains on Lipitor. Remains on hydralazine 100 mg 3 times daily and 25 mg on a as needed basis. Remains on Coreg 12.5 mg twice a day. Remains on Imdur 30 mg p.o. daily. Remains on torsemide 40 mg p.o. on a daily basis. Remains on Norvasc 10 mg p.o. daily. On today's evaluation of 09/20/2023, the patient is undergoing hemodialysis. Calm and comfortable. No plans to replace the permacath at this point in time and the patient was started on anticoagulation by the medical team and the vascular team. The catheter itself is functional. The patient is undergoing hemodialysis on the complications. Patient has been weaned down to 3 L of O2 nasal cannula. The white cell count is at 3.5 with a hemoglobin 9.8 and a platelet count of 126. Sodium is at 129 and a serum bicarb is at 30 with a BUN of 23 and a creatinine of 2.98. The LFTs are essentially within normal limits. The patient is awake and communicating. No other significant events overnight otherwise. The patient remains on the same medication and the patient was taken off the IV heparin and started on anticoagulation. Objective - Vital Signs Vital signs: Vital Signs Temp 97.7 F 09/20/23 09:20 Pulse 64 09/20/23 09:20 Resp 17 09/20/23 09:20 BP 127/64 09/20/23 09:20 Pulse Ox 94 L 09/20/23 09:20 FiO2 Intake & Output 09/19/23 09/20/23 09/20/23 18:59 06:59 18:59 Intake Total 358 240 240 Output Total 200 Balance 158 240 240 Weight 81.647 kg Intake: Oral 358 240 240 Output: Urine 200 - Exam Gen: in no apparent distress, resting comfortably in bed, the patient is currently 3 L O2 nasal cannula Eyes: PERRL, no scleral injection or icterus Head exam was generally normal. There was no scleral icterus or corneal arcus. Mucous membranes were moist. Neck: no tracheal deviation, full range of motion Resp: good air exchange, breathing comfortably with no accessory muscle use, no tactile fremitus, crackles throughout the posterior lung wheeler CVS: good distal perfusion x 4, bilateral pitting edema, irregular rhythm GI: soft, NTTP, ND, no hepatosplenomegaly : no suprapubic tenderness, no CVAT, monae catheter not present MSK: no clubbing, no cyanosis, no noted contractures of extremities, right upper extremity pitting edema worse than left upper extremity Skin: no noted rashes, petechiae; temperature of skin is appropriate Neuro: moving all extremities without signs of weakness, CN II-XII intact Psych: cooperative, euthymic mood, insight and judgment intact 3 - Labs CBC & Chem 7: 09/20/23 09:50 09/19/23 08:14 Labs: Abnormal Lab Results - Last 24 Hours (Table) 09/20/23 Range/Units 09:50 WBC 3.5 L (3.8-10.6) k/uL RBC 3.33 L (4.30-5.90) m/uL Hgb 9.8 L (13.0-17.5) gm/dL Hct 30.2 L (39.0-53.0) % Plt Count 126 L (150-450) k/uL Lymphocytes # 0.4 L (1.0-4.8) k/uL Assessment and Plan Plan: Acute hypoxic respiratory failure and the patient is currently on 3 L of O2 nasal cannula. Patient has signs of fluid overload with bilateral pleural effusion consistent with volume overload. CTA of the chest has been completed and the patient has no evidence of any pulmonary embolism. Bilateral pleural effusions secondary to above. The patient underwent hemodialysis The patient is currently undergoing hemodialysis. Oxygenation is improved. Will switch to oral anticoagulants. Bilateral pleural effusions secondary to above End-stage renal disease on hemodialysis 3 times a week, TTS via permacath Acute nonocclusive DVT involving the left superficial valvular vein and extensive DVT involving the right lower extremity Free-floating acute DVT within the right internal jugular vein at the site of a previously inserted Permacath, awaiting a repeat ultrasound. The patient was switched to oral anticoagulants. 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 Plan: Patient is currently on oral anticoagulants with Eliquis Wean FiO2 as tolerated to maintain saturation above 90% currently on 3 L nasal cannula IV heparin has been discontinued Permacath is functional Nephrology consultation Blood pressure monitoring and resume antihypertensive medications and the patient is currently on a combination of Coreg and hydralazine and Imdur and Norvasc Will continue to follow.
[2023-09-20 15:46] LABS: African American GFR (CKD) 32 (>60 ml/min/1.73 sqM); Anion Gap 4 mmol/L; Blood Urea Nitrogen 17 mg/dL (9-20); Carbon Dioxide 31 mmol/L (22-30); Chloride 97 mmol/L (98-107); Glucose 121 mg/dL (74-99); Magnesium 1.8 mg/dL (1.6-2.3); Non-African American GFR(CKD) 28 (>60 ml/min/1.73 sqM); Potassium 3.5 mmol/L (3.5-5.1); Sodium 132 mmol/L (137-145)
[2023-09-21 08:42] VITALS: BP 161/77; PULSE 77; TEMP 98.3
--- NOTE | 2023-09-21 10:55 | P.DS ---
Providers Date of admission: 09/17/23 07:07 Expected date of discharge: 09/21/23 Attending physician: Christophe Siegel MD Consults: 09/17/23 07:04 Consult Physician Routine Consulting Provider: Castillo Espinoza Consult Reason/Comments: CHF Do you want consulting provider notified?: Yes Consult Physician Routine Consulting Provider: Claude Freeman Consult Reason/Comments: Volume overload/CHF, dialysis patient. Do you want consulting provider notified?: Yes 09/17/23 08:18 Consult Physician Stat Consulting Provider: Hattie Hall Consult Reason/Comments: elevated ddimer Do you want consulting provider notified?: Yes 09/17/23 09:00 Consult Physician Routine Consulting Provider: Hattie Hall Consult Reason/Comments: PE suspected Do you want consulting provider notified?: Yes Consult Physician Urgent Consulting Provider: Jemal Lawton Consult Reason/Comments: failure of eliquis suspected Do you want consulting provider notified?: Yes 09/17/23 14:52 Consult Physician Routine Consulting Provider: Westley Jean Consult Reason/Comments: UNSTABLE VTE IN IJ Do you want consulting provider notified?: Yes Primary care physician: [facility] Hospital Course: Discharge Diagnosis: Acute hypoxic respiratory failure Acute on chronic diastolic heart failure exacerbation End-stage renal disease with hypervolemia, on hemodialysis Hypertensive urgency Paroxysmal atrial fibrillation Unstable acute DVT in right IJ, likely provoked Acute and subacute DVT in bilateral lower extremities Hospital Course: 78-year-old male with medical history of severe PAD status post right AKA, CAD, hypertension, hyperlipidemia, end-stage renal disease on dialysis which was recently initiated via right IJ permacath, paroxysmal atrial fibrillation on apixaban, previously on Coumadin presented for evaluation of dyspnea. Patient was recently discharged from our facility after a 9-day hospital course in which he was initiated on dialysis for acute renal failure and was sent to a fpc for rehab. Patient says that his rehab was going okay when he started develop worsening dyspnea. He also reports increased swelling of all of his extremities. In the emergency room, patient was afebrile, 191/95, heart rate 121, 96% on 6 L of nasal cannula. CBC demonstrated leukocytosis to 11.6, hemoglobin of 11.3. Basic metabolic panel showed sodium of 131, BUN of 33, creatinine of 1.02. Liver function test showed albumin of 3.0. BNP was 26,900, troponin was 0.018. Coags were unremarkable. D-dimer was 10.12. Chest x-ray demonstrated findings of pulmonary congestion with right-sided pleural effusion. EKG demonstrated findings of atrial fibrillation with rapid ventricular response, left axis deviation. 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 CT angiography redemonstrated findings of volume overload with right-sided pleural effusion, trace left-sided pleural effusion, pulmonary congestion, but was negative for pulmonary embolism. Patient was initiated on a nitroglycerin drip for hypertensive urgency, patient was admitted with cardiology, nephrology consult. For findings of DVT, patient was given a dose of Lovenox 80 mg subcu. patient also found to have a free-floating acute DVT within the right IJ vein. Patient on heparin drip. Vascular surgery was consulted. Recommending repeat ultrasound. Repeat ultrasound shows persistent extensive clot/DVT within the right internal jugular vein. No interventions planned. Heparin drip discontinued, patient started on VTE protocol Eliquis. DVT likely provoked, per oncology he will need anticoagulation for 3 to 6 months. Patient being discharged back to nursing facility. Follow-up with nephrology and hematology. Patient seen and examined at bedside. Vital signs reviewed and stable. General: Nontoxic, no distress, appears at stated age Derm: Warm, dry, IJ catheter clean, dry, intact Head: Atraumatic, normocephalic, symmetric Eyes: EOMI, no lid lag, anicteric sclera Mouth: No lip lesion, mucus membranes moist Cardiovascular: S1S2 reg, no murmur Lungs: CTA bilateral, no rhonchi, no rales, no accessory muscle use Abdominal: Soft, nontender to palpation, no guarding, no appreciable organomegaly Ext: No gross muscle atrophy, no edema, no contractures, right AKA Neuro: CN II-XI grossly intact, no focal neuro deficits Psych: Alert, oriented, appropriate affect A total of 33 minutes of time were spent preparing this complex discharge summary. Patient was discharged on 09/21/2023 at 958. Patient Condition at Discharge: Stable Plan - Discharge Summary Discharge Rx Participant: No New Discharge Prescriptions: New Darbepoetin Kalin [Aranesp] 40 mcg SQ Q7D each carvediloL [Coreg*] 12.5 mg PO BID-W/MEALS #0 tab Apixaban Initiation Dose--VTE [Eliquis Initiation Dosing for VTE Treatment] 10 mg PO BID tab Continue Tamsulosin [Flomax] 0.4 mg PO DAILY@0800 Cholecalciferol [Vitamin D3 (25 Mcg = 1000 Iu)] 25 mcg PO DAILY@0800 HYDROcodone/APAP 5-325MG [Marshall 5-325] 1 tab PO Q6H PRN PRN Reason: Pain Na Phos,M-B/Na Phos,Di-Ba [Fleet Adult] 133 ml RECTAL DAILY PRN PRN Reason: Constipation bisacodyL [Dulcolax] 10 mg RECTAL DAILY PRN PRN Reason: Constipation Torsemide [Demadex] 40 mg PO DAILY@0800 Nepro 1 can PO SUMOWEFR@0800 amLODIPine [Norvasc] 10 mg PO DAILY@0800 Calcium Acetate [PhosLo] 667 mg PO BID-W/MEALS tab Magnesium Hydroxide [Milk of Magnesia Concentrate] 7,200 mg PO Q48H PRN PRN Reason: Constipation hydrALAZINE HCL [Apresoline] 100 mg PO TID Nepro 1 can PO TUTHSA@0600 Atorvastatin [Lipitor] 10 mg PO HS@2100 Isosorbide Mononitrate ER [Imdur] 30 mg PO DAILY@0800 Discontinued Apixaban [Eliquis] 2.5 mg PO BID@0800,1700 carvediloL [Coreg] 6.25 mg PO BID@0800,1700 Digoxin [Lanoxin] 125 mcg PO Q48H tab Discharge Medication List Cholecalciferol [Vitamin D3 (25 Mcg = 1000 Iu)] 25 mcg PO DAILY@0800 09/02/23 [History] Tamsulosin [Flomax] 0.4 mg PO DAILY@0800 09/02/23 [History] Calcium Acetate [PhosLo] 667 mg PO BID-W/MEALS tab 09/12/23 [Rx] Atorvastatin [Lipitor] 10 mg PO HS@2100 09/17/23 [History] HYDROcodone/APAP 5-325MG [Marshall 5-325] 1 tab PO Q6H PRN 09/17/23 [History] Isosorbide Mononitrate ER [Imdur] 30 mg PO DAILY@79909/17/23 [History] Magnesium Hydroxide [Milk of Magnesia Concentrate] 7,200 mg PO Q48H PRN 09/17/23 [History] Na Phos,M-B/Na Phos,Di-Ba [Fleet Adult] 133 ml RECTAL DAILY PRN 09/17/23 [History] Nepro 1 can PO SUMOWEFR@79909/17/23 [History] Nepro 1 can PO TUTHSA@59909/17/23 [History] Torsemide [Demadex] 40 mg PO DAILY@79909/17/23 [History] amLODIPine [Norvasc] 10 mg PO DAILY@79909/17/23 [History] bisacodyL [Dulcolax] 10 mg RECTAL DAILY PRN 09/17/23 [History] hydrALAZINE HCL [Apresoline] 100 mg PO TID 09/17/23 [History] Apixaban Initiation Dose--VTE [Eliquis Initiation Dosing for VTE Treatment] 10 mg PO BID tab 09/21/23 [Rx] Darbepoetin Kalin [Aranesp] 40 mcg SQ Q7D each 09/21/23 [Rx] carvediloL [Coreg*] 12.5 mg PO BID-W/MEALS #0 tab 09/21/23 [Rx] Follow up Appointment(s)/Referral(s): Jemal Lawton [STAFF PHYSICIAN] - 1 Week Kunal Avelar DO [STAFF PHYSICIAN] - 1 Week [facility] [Primary Care Provider] - 1-2 days Patient Instructions/Handouts: Heart Failure (DC), Dialysis Diet (DC), Deep Vein Thrombosis (DC), Chronic Hypertension (DC), End Stage Kidney Disease (DC) Activity/Diet/Wound Care/Special Instructions: Please see PCP, nephrology and hematology. Discharge Disposition: TRANSFER TO SNF/ECF
--- NOTE | 2023-09-21 11:40 | P.PN ---
Subjective Patient is seen in follow-up for end-stage renal disease. He is maintained on hemodialysis on Sunday schedule. No problems with dialysis yesterday. Hemodynamically stable. Currently on nasal cannula. Denies chest pain or shortness of breath. Vital signs are stable. General: No acute distress. HEENT: Head exam is unremarkable. On nasal cannula. LUNGS: No audible rhonchi or wheezes. HEART: Rate and Rhythm are regular. ABDOMEN: Nontender. EXTREMITITES: Right AKA noted. Objective - Vital Signs Vital signs: Vital Signs Temp 98.3 F 09/21/23 07:30 Pulse 77 09/21/23 07:30 Resp 19 09/21/23 07:30 BP 161/77 09/21/23 07:30 Pulse Ox 91 L 09/21/23 09:20 FiO2 Intake & Output 09/20/23 09/21/23 09/21/23 18:59 06:59 18:59 Intake Total 1011.642 220 Output Total 2900 75 Balance -1888.358 145 Weight 81.647 kg Intake: Intake, IV Titration 131.642 Amount Heparin Sod,Pork in 0.45% 131.642 NaCl 25,000 unit In 0.45 % NaCl 1 250ml.bag @ 18 UNITS/KG/HR 14.696 mls/hr IV .Q17H1M [facility] Rx#: [id number] Oral 480 220 Hemodialysis 400 Output: Urine 75 Hemodialysis 2900 Other: # Voids 1 - Labs CBC & Chem 7: 09/20/23 09:50 09/20/23 15:10 Labs: Abnormal Lab Results - Last 24 Hours (Table) 09/20/23 Range/Units 15:10 Sodium 132 L (137-145) mmol/L Chloride 97 L (98-107) mmol/L Carbon Dioxide 31 H (22-30) mmol/L Creatinine 2.21 H (0.66-1.25) mg/dL Glucose 121 H (74-99) mg/dL Calcium 8.0 L (8.4-10.2) mg/dL Assessment and Plan Plan: Assessment: 1. End-stage renal disease maintained on hemodialysis on Sunday schedule via permacath. 2. Acute hypoxic respiratory failure. Component of volume overload. No PE noted on VQ scan. 3. Peripheral arterial disease with history of right [id number] amputation. 4. Hypertensive urgency. Improved. Blood pressure stable. 5. Chronic kidney disease mineral bone disease maintained on PhosLo. Phosphorus level 4.5 dated September 17, 2023. 6. Volume overload. Improved with ultrafiltration. 7. Bilateral lower extremity DVTs maintained on anticoagulation. Hematology following. 8. Anemia of chronic kidney disease. Iron replete. On Aranesp. 9. Hyponatremia secondary to CKD. Plan: Hemodialysis tomorrow. Phosphorus level 4.5 dated September 17, 2023. Maintain torsemide. Encouraged oral intake. Maintain fluid restriction.
[2023-09-21 13:39] VITALS: RESP 17
--- NOTE | 2023-09-21 16:02 | P.PN ---
Subjective Progress Note Date: 09/21/23 This is a 78-year-old male patient who came in to the hospital for worsening shortness of breath. He also developed increased swelling lower extremities. The patient has end-stage renal disease and the patient was started on hemodialysis recently and dialysis was initiated to a right IJ permacath. The patient was discharged from the hospital approximately 9 days ago after being initiated on hemodialysis and the patient was sent to a fci/rehab facility. Noted the patient was started on hemodialysis on 09/03/2023. He was maintained on hemodialysis 3 times a week, TTS via permacath. The patient came in with worsening shortness of breath. The patient was hypertensive with a BP of 191/95 and a pro BNP level was 26,900 with a troponin of 0.18. BUN was 33 with a creatinine of 4 .02. Sodium level was 131. Coags were unremarkable. Rest of the CBC showed a WBC count of 11.6 with a hemoglobin 11.3.. The chest x-ray was done in the emergency department and showed consistent changes with fluid overload and the patient underwent a CT of the chest that showed no evidence of any pulmonary embolism. There was moderate bilateral pleural effusion and mild CHF and bibasilar consolidation favoring compressive atelectasis. Dopplers were also performed and the patient was found to have a free-floating acute DVT within the right internal jugular vein at central line site with adjacent flow moving blood/developing thrombus. The Doppler of the lower extremities was also done and the patient was found to have an acute nonocclusive DVT involving the left superficial femoral vein and extensive DVT involving the right lower extremity. 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 As such, the patient was started on IV heparin. The patient was seen by nephrology. The patient will have hemodialysis today. Most recent echocardiogram that was done on this patient was on 09/11/2023 and it showed normal LV function, mild increase in left ventricular wall thickness and moderate to severe biatrial enlargement and mild RV dilatation. He is currently on 60 of O2 nasal cannula with a pulse ox of 98%. Blood pressure improved and the most recent BP is 147/81. On today's evaluation of 09/18/2023, I am seeing the patient for a follow-up. The patient is resting comfortably in bed and the patient is undergoing hemodialysis. The goal is to ultrafiltrate this patient for a total of 2 L. Respiratory status is stable and the patient is currently on oxygen and he was been weaned down to 5 L with a pulse ox of 96%. No significant respiratory distress at this point in time. Awake and alert and communicating. White cell count of 5.5 with a hemoglobin 9.6 and a platelet count of 134, BUN is at 23 with a creatinine of 3.1 and sodium levels at 132. The patient is hemodynamically stable and has no specific complaints. Awaiting vascular surgery regarding the clot in his right IJ and the clot that is involving the right-sided permacath. The patient also has a left lower extremity DVT and the patient remains on IV heparin. Hemoglobin remained stable. On today's evaluation of 09/19/2023, the patient is awake and alert. He underwent hemodialysis yesterday. He is no significant respiratory distress and his BP is under better control. Noted the patient undergoes hemodialysis 3 times a week, TTS. He remains on oxygen by nasal cannula and should be able to wean down. He is currently on 5 L with a pulse ox of 96 to 97%. White cell count is at 4.9 with a hemoglobin 10.1 and a platelet count of 119. Sodium is at 129, BUN is at 23 with a creatinine of 2.9. The patient will have another ultrasound of the right upper extremity and the neck to reevaluate the right IJ clot. Vascular surgery has also been involved in the case and the patient rem ains on IV heparin for now. Remains on Coreg. Remains on Lipitor. Remains on hydralazine 100 mg 3 times daily and 25 mg on a as needed basis. Remains on Coreg 12.5 mg twice a day. Remains on Imdur 30 mg p.o. daily. Remains on torsemide 40 mg p.o. on a daily basis. Remains on Norvasc 10 mg p.o. daily. On today's evaluation of 09/20/2023, the patient is undergoing hemodialysis. Calm and comfortable. No plans to replace the permacath at this point in time and the patient was started on anticoagulation by the medical team and the vascular team. The catheter itself is functional. The patient is undergoing hemodialysis on the complications. Patient has been weaned down to 3 L of O2 nasal cannula. The white cell count is at 3.5 with a hemoglobin 9.8 and a platelet count of 126. Sodium is at 129 and a serum bicarb is at 30 with a BUN of 23 and a creatinine of 2.98. The LFTs are essentially within normal limits. The patient is awake and communicating. No other significant events overnight otherwise. The patient remains on the same medication and the patient was taken off the IV heparin and started on anticoagulation. On today's evaluation on 09/21/2023, no new complaints. The patientIs awake and alert and communicating. The patient is maintained on hemodialysis. Last hemodialysis session was done yesterday. Denies having any shortness of breath. Labs from yesterday shows a BUN of 17 with a creatinine of 2.2 and a sodium levels at 132., The patient is currently on 3 L of O2 nasal cannula with a pulse ox of 91%. The plan is to discharge this patient to be followed up on outpatient basis. Objective - Vital Signs Vital signs: Vital Signs Temp 98.3 F 09/21/23 07:30 Pulse 77 09/21/23 07:30 Resp 19 09/21/23 07:30 BP 161/77 09/21/23 07:30 Pulse Ox 91 L 09/21/23 09:20 FiO2 Intake & Output 09/20/23 09/21/23 09/21/23 18:59 06:59 18:59 Intake Total 1011.642 220 Output Total 2900 75 Balance -1888.358 145 Weight 81.647 kg Intake: Intake, IV Titration 131.642 Amount Heparin Sod,Pork in 0.45% 131.642 NaCl 25,000 unit In 0.45 % NaCl 1 250ml.bag @ 18 UNITS/KG/HR 14.696 mls/hr IV .[id number] [facility] Rx#: [id number] Oral 480 220 Hemodialysis 400 Output: Urine 75 Hemodialysis 2900 Other: # Voids 1 - Exam Gen: in no apparent distress, resting comfortably in bed, the patient is currently 3 L O2 nasal cannula Eyes: PERRL, no scleral injection or icterus Head exam was generally normal. There was no scleral icterus or corneal arcus. Mucous membranes were moist. Neck: no tracheal deviation, full range of motion Resp: good air exchange, breathing comfortably with no accessory muscle use, no tactile fremitus, crackles throughout the posterior lung wheeler CVS: good distal perfusion x 4, bilateral pitting edema, irregular rhythm GI: soft, NTTP, ND, no hepatosplenomegaly : no suprapubic tenderness, no CVAT, monae catheter not present MSK: no clubbing, no cyanosis, no noted contractures of extremities, right upper extremity pitting edema worse than left upper extremity Skin: no noted rashes, petechiae; temperature of skin is appropriate Neuro: moving all extremities without signs of weakness, CN II-XII intact Psych: cooperative, euthymic mood, insight and judgment intact 3 - Labs CBC & Chem 7: 09/20/23 09:50 09/20/23 15:10 Labs: Abnormal Lab Results - Last 24 Hours (Table) 09/20/23 Range/Units 15:10 Sodium 132 L (137-145) mmol/L Chloride 97 L (98-107) mmol/L Carbon Dioxide 31 H (22-30) mmol/L Creatinine 2.21 H (0.66-1.25) mg/dL Glucose 121 H (74-99) mg/dL Calcium 8.0 L (8.4-10.2) mg/dL Assessment and Plan Plan: Acute hypoxic respiratory failure and the patient is currently on 3 L of O2 nasal cannula. Patient has signs of fluid overload with bilateral pleural effusion consistent with volume overload. CTA of the chest has been completed and the patient has no evidence of any pulmonary embolism. Bilateral pleural effusions secondary to above. The patient underwent hemodialysis The patient is currently undergoing hemodialysis. Oxygenation is improved. Will switch to oral anticoagulants. Bilateral pleural effusions secondary to above End-stage renal disease on hemodialysis 3 times a week, TTS via permacath Acute nonocclusive DVT involving the left superficial valvular vein and extensive DVT involving the right lower extremity Free-floating acute DVT within the right internal jugular vein at the site of a previously inserted Permacath, awaiting a repeat ultrasound. The patient was switched to oral anticoagulants. 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 Plan: Clinically stable and the patient is to be discharged on 3 L of oxygen by nasal cannula Patient is currently on oral anticoagulants with Eliquis Wean FiO2 as tolerated to maintain saturation above 90% currently on 3 L nasal cannula Permacath is functional, the patient is undergoing dialysis 3 times a week TTS Nephrology follow-up Blood pressure monitoring and resume antihypertensive medications and the patient is currently on a combination of Coreg and hydralazine and Imdur and Norvasc pulmonary will sign off the case Likely discharge home today.
== END 2023-09-21 12:53 | DRG 291 ==
LOC: EC 05:06 → 3SCARD 07:07 → 4SSUR 09-21 02:52
PROVIDERS: ADMIT Internal Medicine; ATTEND Internal Medicine
DX: I13.2 Hypertensive heart and chronic kidney disease with heart failure and with stage 5 chronic kidney disease, or end stage renal disease (principal); I50.33 Acute on chronic diastolic (congestive) heart failure; J96.01 Acute respiratory failure with hypoxia; N18.6 End stage renal disease; I16.1 Hypertensive emergency; I48.19 Other persistent atrial fibrillation; I82.403 Acute embolism and thrombosis of unspecified deep veins of lower extremity, bilateral; I82.411 Acute embolism and thrombosis of right femoral vein; I82.C11 Acute embolism and thrombosis of right internal jugular vein; I82.412 Acute embolism and thrombosis of left femoral vein; I82.501 Chronic embolism and thrombosis of unspecified deep veins of right lower extremity; I82.621 Acute embolism and thrombosis of deep veins of right upper extremity; J98.11 Atelectasis; N17.9 Acute kidney failure, unspecified; E87.1 Hypo-osmolality and hyponatremia; I72.4 Aneurysm of artery of lower extremity; I73.9 Peripheral vascular disease, unspecified; F32.A Depression, unspecified; E83.9 Disorder of mineral metabolism, unspecified; Z99.2 Dependence on renal dialysis; Z79.01 Long term (current) use of anticoagulants; Z66 Do not resuscitate; Z89.611 Acquired absence of right leg above knee; D63.1 Anemia in chronic kidney disease; I34.0 Nonrheumatic mitral (valve) insufficiency; F43.10 Post-traumatic stress disorder, unspecified; G47.33 Obstructive sleep apnea (adult) (pediatric); E78.5 Hyperlipidemia, unspecified; D72.829 Elevated white blood cell count, unspecified; I25.10 Atherosclerotic heart disease of native coronary artery without angina pectoris; M19.90 Unspecified osteoarthritis, unspecified site; R79.1 Abnormal coagulation profile; F17.200 Nicotine dependence, unspecified, uncomplicated; K21.9 Gastro-esophageal reflux disease without esophagitis; H91.90 Unspecified hearing loss, unspecified ear; Z79.899 Other long term (current) drug therapy; Z82.49 Family history of ischemic heart disease and other diseases of the circulatory system; Z86.73 Personal history of transient ischemic attack (TIA), and cerebral infarction without residual deficits; Z86.79 Personal history of other diseases of the circulatory system; Z91.81 History of falling; Z95.5 Presence of coronary angioplasty implant and graft; Z95.9 Presence of cardiac and vascular implant and graft, unspecified
CPT/HCPCS: 36415; 71045; 71275; 80048; 80053; 80162; 82728; 83540; 83550; 83605; 83735; 83880; 84100; 84484; 85025; 85379; 85610; 85730; 90935; 93005; 93970; 94760; 96365; 96366; 96368; 96375; 96376; 99291

== ENCOUNTER 2023-09-23 09:05 | Observation (INO) | payer MEDICARE, BC ==
--- NOTE | 2023-09-23 09:19 | ED ---
General Adult HPI - General Stated complaint: SOB Time Seen by Provider: 09/23/23 09:05 Source: patient, RN notes reviewed, old records reviewed - History of Present Illness Initial comments: This is a 78-year-old male who is living in a shelter he has a past medical history significant for multiple DVTs and a BKA on the right. Patient also is on dialysis. Patient was having difficulty breathing this morning and they ca lled the ambulance. When ambulance got there they stated the patient was wheezing to give him a breathing treatment he is feeling much better currently patient states he is feeling back to his baseline he has no complaints of any pain and had no pain earlier. Patient currently has no complaints whatsoever. - Related Data Home Medications Medication Instructions Recorded Confirmed Cholecalciferol [Vitamin D3 (25 25 mcg PO DAILY@79909/02/23 09/17/23 Mcg = 1000 Iu)] Tamsulosin [Flomax] 0.4 mg PO DAILY@79909/02/23 09/17/23 Atorvastatin [Lipitor] 10 mg PO HS@209909/17/23 09/17/23 HYDROcodone/APAP 5-325MG [Freeman 1 tab PO Q6H PRN 09/17/23 09/17/23 5-325] Isosorbide Mononitrate ER [Imdur] 30 mg PO DAILY@79909/17/23 09/17/23 Magnesium Hydroxide [Milk of 7,200 mg PO Q48H PRN 09/17/23 09/17/23 Magnesia Concentrate] Na Phos,M-B/Na Phos,Di-Ba [Fleet 133 ml RECTAL DAILY PRN 09/17/23 09/17/23 Adult] Nepro 1 can PO SUMOWEFR@79909/17/23 09/17/23 Nepro 1 can PO TUTHSA@59909/17/23 09/17/23 Torsemide [Demadex] 40 mg PO DAILY@79909/17/23 09/17/23 amLODIPine [Norvasc] 10 mg PO DAILY@79909/17/23 09/17/23 bisacodyL [Dulcolax] 10 mg RECTAL DAILY PRN 09/17/23 09/17/23 hydrALAZINE HCL [Apresoline] 100 mg PO TID 09/17/23 09/17/23 Previous Rx's Medication Instructions Recorded Calcium Acetate [PhosLo] 667 mg PO BID-W/MEALS tab 09/12/23 Apixaban Initiation Dose--VTE 10 mg PO BID tab 09/21/23 [Eliquis Initiation Dosing for VTE Treatment] Darbepoetin Kalin [Aranesp] 40 mcg SQ Q7D each 09/21/23 carvediloL [Coreg*] 12.5 mg PO BID-W/MEALS #0 tab 09/21/23 Allergies Allergy/AdvReac Type Severity Reaction Status Date / Time No Known Allergies Allergy Verified 09/23/23 09:16 Review of Systems ROS Statement: Those systems with pertinent positive or pertinent negative responses have been documented in the HPI. ROS Other: All systems not noted in ROS Statement are negative. Past Medical History Past Medical History: Atrial Fibrillation, Deep Vein Thrombosis (DVT), GERD/Reflux, Hearing Disorder / Deafness, Hyperlipidemia, Osteoarthritis (OA), Prostate Disorder, Sleep Apnea/CPAP/BIPAP Additional Past Medical History / Comment(s): DVT Last Myocardial Infarction Date:: UNKNOWN History of Any Multi-Drug Resistant Organisms: None Reported Past Surgical History: Heart Catheterization With Stent Additional Past Surgical History / Comment(s): Femoral bypass right and left, removed steel from right lung and retired up diaphram, right above knee amputee Past Anesthesia/Blood Transfusion Reactions: No Reported Reaction Date of Last Stent Placement:: UNKNOWN Smoking Status: Former smoker - Past Family History Mother Family Medical History: Myocardial Infarction (AR) Father Family Medical History: Dementia General Exam - General Exam Comments Initial Comments: GENERAL: Patient is well-developed and well-nourished. Patient is nontoxic and well- hydrated and is in no acute distress. ENT: Neck is soft and supple. No significant lymphadenopathy is noted. Oropharynx is clear. Moist mucous membranes. Neck has full range of motion without eliciting any pain. EYES: The sclera were anicteric and conjunctiva were pink and moist. Extraocular movements were intact and pupils were equal round and reactive to light. Eyelids were unremarkable. PULMONARY: Unlabored respirations. Good breath sounds bilaterally. Patient has some crackles in both bases and occasional expiratory wheeze CARDIOVASCULAR: There is a regular rate and rhythm without any murmurs gallops or rubs. ABDOMEN: Soft and nontender with normal bowel sounds. No palpable organomegaly was noted. There is no palpable pulsatile mass. SKIN: Skin is clear with no lesions or rashes and otherwise unremarkable. NEUROLOGIC: Patient is alert and oriented x3. Cranial nerves II through XII are grossly intact. Motor and sensory are also intact. Normal speech, volume and content. Symmetrical smile. MUSCULOSKELETAL: Patient has a KA on the right LYMPHATICS: No significant lymphadenopathy is noted PSYCHIATRIC: Normal psychiatric evaluation. Course Vital Signs 09/23/23 09/23/23 09/23/23 09:07 09:29 09:36 Temperature 97.4 F L Pulse Rate 84 80 82 Respiratory 20 18 18 Rate Blood Pressure 144/88 O2 Sat by Pulse 91 L Oximetry 09/23/23 11:00 Temperature Pulse Rate 86 Respiratory 20 Rate Blood Pressure 162/90 O2 Sat by Pulse 95 Oximetry Medical Decision Making - Medical Decision Making EKG shows atrial fibrillation at 89 bpm QRS 106 QT interval 364 QTc is 410. Patient's EKG shows no ST segment ovation or depression. Was pt. sent in by a medical professional or institution (, PA, DRUPAL WEB DEVELOPER, urgent care, hospital, or shelter...) When possible be specific @ -Patient was sent in by the shelter Did you speak to anyone other than the patient for history (EMS, parent, family, police, friend...)? What history was obtained from this source @ -EMS told us why they were called and what they found on arrival. EMS also told us what treatments they gave and route. Did you review nursing and triage notes (agree or disagree)? Why? @ -I reviewed and agree with nursing and triage notes Were old charts reviewed (outside hosp., previous admission, EMS record, old EKG, old radiological studies, urgent care reports/EKG's, shelter records)? Report findings @ -I compared this chest x-ray with last x-ray it did show more venous congestion at this time than last. I also compared today's labs with old labs patient's kidney failure was similar to previous. Differential Diagnosis (chest pain, altered mental status, abdominal pain women, abdominal pain men, vaginal bleeding, weakness, fever, dyspnea, syncope, h eadache, dizziness, GI bleed, back pain, seizure, CVA, palpatations, mental health, musculoskeletal)? @ -Differential Dyspnea: Coronary syndrome, arrhythmia, tamponade, asthma, COPD, pulmonary embolism, pneumonia, pneumothorax, pulmonary effusion, anaphylaxis, diabetic ketoacidosis, flailed chest, pulmonary contusion, diaphragmatic rupture, anemia, neuromuscular, this is not meant to be an all-inclusive list. EKG interpreted by me (3pts min.). @ -As above X-rays interpreted by me (1pt min.). @ -Chest x-ray shows pulmonary edema CT interpreted by me (1pt min.). @ -None done U/S interpreted by me (1pt. min.). @ -None done What testing was considered but not performed or refused? (CT, X-rays, U/S, labs)? Why? @ -None What meds were considered but not given or refused? Why? @ -None Did you discuss the management of the patient with other professionals (professionals i.e. , PA, DRUPAL WEB DEVELOPER, lab, RT, psych nurse, social media intern, enterprise resource analyst, teacher, investigation officer, nurse case management)? Give summary @ -I spoke with Dr. Zuleta and he agreed to admit the patient Was smoking cessation discussed for >3mins.? @ -No Was critical care preformed (if so, how long)? @ -No Were there social determinants of health that impacted care today? How? (Homelessness, low income, unemployed, alcoholism, drug addiction, transportation, low edu. Level, literacy, decrease access to med. care, shelter, rehab)? @ -No Was there de-escalation of care discussed even if they declined (Discuss DNR or withdrawal of care, Hospice)? DNR status @ -No What co-morbidities impacted this encounter? (DM, HTN, Smoking, COPD, CAD, Can cer, CVA, ARF, Chemo, Hep., AIDS, mental health diagnosis, sleep apnea, morbid obesity)? @ -None Was patient admitted / discharged? Hospital course, mention meds given and route, prescriptions, significant lab abnormalities, going to OR and other pertinent info. @ -Patient initially was given breathing treatment steroids secondary to the fact that they stated he was wheezing and rales and the breathing treatment helped there. Once I saw the x-ray I gave the patient some Lasix. Patient's D-dimer was elevated however he has known clots and he is already on Eliquis. I did not do any further studies to evaluate the elevated D-dimer. At this point in time I spoke with sound physicians and they agreed to admit the patient. Undiagnosed new problem with uncertain prognosis? @ -No Drug Therapy requiring intensive monitoring for toxicity (Heparin, Nitro, Insulin, Cardizem)? @ -No Were any procedures done? @ -No Diagnosis/somptom? @ -Acute pulmonary edema Acute, or Chronic, or Acute on Chronic? @ -Acute Uncomplicated (without systemic symptoms) or Complicated (systemic symptoms)? @ -Complicated Side effects of treatment? @ -No Exacerbation, Progression, or Severe Exacerbation? @ -No Poses a threat to life or bodily function? How? (Chest pain, USA, AR, pneumonia, PE, COPD, DKA, ARF, appy, cholecystitis, CVA, Diverticulitis, Homicidal, Suicidal, threat to staff... and all critical care pts) @ -Yes this can lead to hypoxia and endorgan dysfunction - Lab Data Result diagrams: 09/23/23 09:19 09/23/23 09:19 Lab Results 09/23/23 09/23/23 09/23/23 Range/Units 09:19 09:19 09:19 WBC 4.9 (3.8-10.6) k/uL RBC 3.51 L (4.30-5.90) m/uL Hgb 10.5 L (13.0-17.5) gm/dL Hct 31.2 L (39.0-53.0) % MCV 89.0 (80.0-100.0) fL MCH 29.8 (25.0-35.0) pg MCHC 33.5 (31.0-37.0) g/dL RDW 13.9 (11.5-15.5) % Plt Count 131 L (150-450) k/uL MPV 7.9 Neutrophils % 73 % Lymphocytes % 13 % Monocytes % 9 % Eosinophils % 3 % Basophils % 1 % Neutrophils # 3.6 (1.3-7.7) k/uL Lymphocytes # 0.6 L (1.0-4.8) k/uL Monocytes # 0.4 (0-1.0) k/uL Eosinophils # 0.1 (0-0.7) k/uL Basophils # 0.1 (0-0.2) k/uL PT 13.1 H (10.0-12.5) sec INR 1.2 H (<1.2) APTT 29.1 (22.0-30.0) sec D-Dimer 3.38 H (<0.60) mg/L FEU Sodium 134 L (137-145) mmol/L Potassium 3.7 (3.5-5.1) mmol/L Chloride 97 L (98-107) mmol/L Carbon Dioxide 30 (22-30) mmol/L Anion Gap 7 mmol/L BUN 32 H (9-20) mg/dL Creatinine 2.85 H (0.66-1.25) mg/dL Est GFR (CKD-EPI)AfAm 24 (>60 ml/min/1.73 sqM) Est GFR (CKD-EPI)NonAf 21 (>60 ml/min/1.73 sqM) Glucose 113 H (74-99) mg/dL Plasma Lactic Acid Aiden (0.7-2.0) mmol/L Calcium 8.8 (8.4-10.2) mg/dL Magnesium 2.0 (1.6-2.3) mg/dL Total Bilirubin 1.0 (0.2-1.3) mg/dL AST 27 (17-59) U/L ALT 20 (4-49) U/L Alkaline Phosphatase 53 (38-126) U/L Troponin I (0.000-0.034) ng/mL NT-Pro-B Natriuret Pep 97923 pg/mL Total Protein 5.3 L (6.3-8.2) g/dL Albumin 2.8 L (3.5-5.0) g/dL 09/23/23 09/23/23 Range/Units 09:19 09:19 WBC (3.8-10.6) k/uL RBC (4.30-5.90) m/uL Hgb (13.0-17.5) gm/dL Hct (39.0-53.0) % MCV (80.0-100.0) fL MCH (25.0-35.0) pg MCHC (31.0-37.0) g/dL RDW (11.5-15.5) % Plt Count (150-450) k/uL MPV Neutrophils % % Lymphocytes % % Monocytes % % Eosinophils % % Basophils % % Neutrophils # (1.3-7.7) k/uL Lymphocytes # (1.0-4.8) k/uL Monocytes # (0-1.0) k/uL Eosinophils # (0-0.7) k/uL Basophils # (0-0.2) k/uL PT (10.0-12.5) sec INR (<1.2) APTT (22.0-30.0) sec D-Dimer (<0.60) mg/L FEU Sodium (137-145) mmol/L Potassium (3.5-5.1) mmol/L Chloride (98-107) mmol/L Carbon Dioxide (22-30) mmol/L Anion Gap mmol/L BUN (9-20) mg/dL Creatinine (0.66-1.25) mg/dL Est GFR (CKD-EPI)AfAm (>60 ml/min/1.73 sqM) Est GFR (CKD-EPI)NonAf (>60 ml/min/1.73 sqM) Glucose (74-99) mg/dL Plasma Lactic Acid Aiden 0.9 (0.7-2.0) mmol/L Calcium (8.4-10.2) mg/dL Magnesium (1.6-2.3) mg/dL Total Bilirubin (0.2-1.3) mg/dL AST (17-59) U/L ALT (4-49) U/L Alkaline Phosphatase (38-126) U/L Troponin I 0.013 (0.000-0.034) ng/mL NT-Pro-B Natriuret Pep pg/mL Total Protein (6.3-8.2) g/dL Albumin (3.5-5.0) g/dL Disposition Clinical Impression: Acute pulmonary edema Disposition: ADMITTED IP TO THIS HOSP Referrals: [facility],Clinic [Primary Care Provider] - 1-2 days Time of Disposition: 11:48
[2023-09-23] MEDS: IPRATROPIUM-ALBUTEROL 3 ML NEB INHALATION STA (09:29)
[2023-09-23 09:45] LABS: Basophils # (A) 0.1 k/uL (0-0.2); Basophils % (A) 1 %; Eosinophils # (A) 0.1 k/uL (0-0.7); Eosinophils % (A) 3 %; HCT 31.2 % (39.0-53.0); HGB 10.5 gm/dL (13.0-17.5); Lymphocytes # (A) 0.6 k/uL (1.0-4.8); Lymphocytes % (A) 13 %; MCH 29.8 pg (25.0-35.0); MCHC 33.5 g/dL (31.0-37.0); Mean Platelet Volume 7.9; Monocytes # (A) 0.4 k/uL (0-1.0); Monocytes % (A) 9 %; Neutrophils # (A) 3.6 k/uL (1.3-7.7); Neutrophils % (A) 73 %; Platelet Count 131 k/uL (150-450); RBC 3.51 m/uL (4.30-5.90); RDW 13.9 % (11.5-15.5); WBC 4.9 k/uL (3.8-10.6)
[2023-09-23 10:05] LABS: INR 1.2 (<1.2); Partial Thromboplastin Time 29.1 sec (22.0-30.0); Prothrombin Time 13.1 sec (10.0-12.5)
[2023-09-23 10:41] LABS: ALT 20 U/L (4-49); AST 27 U/L (17-59); African American GFR (CKD) 24 (>60 ml/min/1.73 sqM); Albumin 2.8 g/dL (3.5-5.0); Alkaline Phosphatase 53 U/L (38-126); Anion Gap 7 mmol/L; Blood Urea Nitrogen 32 mg/dL (9-20); Calcium 8.8 mg/dL (8.4-10.2); Carbon Dioxide 30 mmol/L (22-30); Chloride 97 mmol/L (98-107); Glucose 113 mg/dL (74-99); Non-African American GFR(CKD) 21 (>60 ml/min/1.73 sqM); Potassium 3.7 mmol/L (3.5-5.1); Sodium 134 mmol/L (137-145); Total Protein 5.3 g/dL (6.3-8.2)
[2023-09-23 10:47] LABS: NT-Pro-B-Type Natriuretic Pept 19700 pg/mL
[2023-09-23] MEDS: methylPREDNISolone SOD SUCCI 125 MG/2 ML VIAL IV STA (11:00)
--- NOTE | 2023-09-23 11:19 | XR ---
EXAMINATION TYPE: XR chest 2V DATE OF EXAM: 09/23/2023 COMPARISON: 09/17/2023 HISTORY: Shortness of breath TECHNIQUE: Frontal and lateral views of the chest are obtained. FINDINGS: Scattered senescent parenchymal changes noted. Hyperinflation compatible with COPD. Persistent pulmonary venous congestion with cardiomegaly, small pleural effusions and scattered infil trates. Correlate for fluid overload state. Mediastinal structures are stable and grossly unremarkable. No evidence for hilar prominence. Degenerative changes dorsal spine. IMPRESSION: 1. Persistent pulmonary venous congestion with cardiomegaly, small pleural effusions and scattered in filtrates. Correlate for fluid overload state.
--- NOTE | 2023-09-23 12:18 | P.HPIM ---
History of Present Illness H&P Date: 09/23/23 Patient is a 78-year-old male with history of severe PAD status post right AKA, CAD, hypertension, dyslipidemia, end-stage renal disease on dialysis, diastolic heart failure, paroxysmal atrial fibrillation on Eliquis, recent DVTs involving lower extremities and right IJ presenting with dyspnea. Patient was recently discharged 2 days ago after coming in with similar complaints, symptoms improved with hemodialysis. Patient was discharged back to nursing facility. He did have a recent CTA a week ago which did not show PE. This time around he did have dialysis in the morning, and then developed acute shortness of breath which has since resolved. He denies any chest pain, abdominal pain, nausea, vomiting, making minimal amounts of urine, no bowel issues. Former smoker, denies any drug use or alcohol use. In the ED, temperature was 97.4, pulse 84, respiratory 20, blood pressure 144/88, saturating at 91% on room air. WBC 4.9, hemoglobin 10.5 at baseline, platelet 131, at baseline, D-dimer 3.38, sodium 134, bicarb 7, BUN 32, creatinine 2.85, magnesium 2, proBNP 19,000, troponin 0.013. Chest x-ray independently interpreted, shows interstitial opacities with small bilateral pleural effusions. EKG independently interpreted, shows atrial fibrillation, rate controlled. Patient given IV steroids, DuoNebs as well as IV Lasix in the ED. Admitted for hypervolemia in the setting of diastolic heart failure and ESRD. Nephrology consulted. Pertinent positives and negatives as discussed in HPI, a complete review of systems was performed and all other systems are negative. Patient seen and examined at bedside. Vital signs reviewed General: nontoxic, no distress, appears at stated age Derm: warm, dry, right IJ catheter clean, dry, intact Head: atraumatic, normocephalic, symmetric Eyes: EOMI, no lid lag, anicteric sclera, pupils equal round reactive to light ENT: Nose and ears atraumatic Neck: No thyromegaly, supple Mouth: no lip lesion, mucus membranes moist Cardiovascular: S1S2 reg, no murmur, pedal edema Lungs: Bilateral rales, no accessory muscle use, supplemental oxygen Abdominal: soft, nontender to palpation, no guarding, no appreciable organomegaly Ext: no gross muscle atrophy, muscle strength muscle strength 5 out of 5 in all 4 extremities, no contractures, right AKA Neuro: CN II-XII grossly intact Psych: Alert, oriented, appropriate affect Assessment/Plan: Active: Acute dyspnea, resolved End-stage renal disease with hypervolemia, on hemodialysis Acute on chronic diastolic heart failure exacerbation Hypertension Paroxysmal atrial fibrillation Provoked right IJ DVT, bilateral lower extremity DVTs Anemia of CKD - Possibly component of anxiety as well, dyspnea resolved. -Nephrology and cardiology consulted -Continue telemetry monitoring - Started on Lasix 80 IV every 8 hours, monitor daily weights, strict I's and O's, renal function and electrolytes - Restart home antihypertensives once reconciled by pharmacy - Restart home Eliquis, Needs to be on initiation protocol for VTE Chronic: CAD PAD status post right AKA Dyslipidemia The patient is admitted with an anticipated less than 2 midnight stay as observation status for evaluation of hypervolemia. Surrogate decision-maker: Grandchild CODE STATUS: Full code DVT prophylaxis: Eliquis Anticipated discharge date: Pending clinical course Anticipated discharge place: Pending clinical course A total of 55 minutes was spent on the care of this complex patient more than 50% of the time was spent in counseling and care coordination. Past Medical History Past Medical History: Atrial Fibrillation, Deep Vein Thrombosis (DVT), GERD/Reflux, Hearing Disorder / Deafness, Hyperlipidemia, Osteoarthritis (OA), Prostate Disorder, Sleep Apnea/CPAP/BIPAP Additional Past Medical History / Comment(s): DVT Last Myocardial Infarction Date:: UNKNOWN History of Any Multi-Drug Resistant Organisms: None Reported Past Surgical History: Heart Catheterization With Stent Additional Past Surgical History / Comment(s): Femoral bypass right and left, removed steel from right lung and retired up diaphram, right above knee amputee Past Anesthesia/Blood Transfusion Reactions: No Reported Reaction Date of Last Stent Placement:: UNKNOWN Smoking Status: Former smoker - Past Family History Mother Family Medical History: Myocardial Infarction ([place]) Father Family Medical History: Dementia Medications and Allergies Home Medications Medication Instructions Recorded Confirmed Type Cholecalciferol [Vitamin D3 (25 25 mcg PO DAILY@0809/02/23 09/17/23 History Mcg = 1000 Iu)] Tamsulosin [Flomax] 0.4 mg PO DAILY@0800 09/02/23 09/17/23 History Calcium Acetate [PhosLo] 667 mg PO BID-W/MEALS tab 09/12/23 09/17/23 Rx Atorvastatin [Lipitor] 10 mg PO HS@2100 09/17/23 09/17/23 History HYDROcodone/APAP 5-325MG [[place] 1 tab PO Q6H PRN 09/17/23 09/17/23 History 5-325] Isosorbide Mononitrate ER [Imdur] 30 mg PO DAILY@0800 09/17/23 09/17/23 History Magnesium Hydroxide [Milk of 7,200 mg PO Q48H PRN 09/17/23 09/17/23 History Magnesia Concentrate] Na Phos,M-B/Na Phos,Di-Ba [Fleet 133 ml RECTAL DAILY PRN 09/17/23 09/17/23 History Adult] Nepro 1 can PO SUMOWEFR@0809/17/23 09/17/23 History Nepro 1 can PO TUTHSA@0600 09/17/23 09/17/23 History Torsemide [Demadex] 40 mg PO DAILY@0800 09/17/23 09/17/23 History amLODIPine [Norvasc] 10 mg PO DAILY@0809/17/23 09/17/23 History bisacodyL [Dulcolax] 10 mg RECTAL DAILY PRN 09/17/23 09/17/23 History hydrALAZINE HCL [Apresoline] 100 mg PO TID 09/17/23 09/17/23 History Apixaban Initiation Dose--VTE 10 mg PO BID tab 09/21/23 Rx [Eliquis Initiation Dosing for VTE Treatment] Darbepoetin Kalin [Aranesp] 40 mcg SQ Q7D each 09/21/23 Rx carvediloL [Coreg*] 12.5 mg PO BID-W/MEALS #0 tab 09/21/23 Rx Allergies Allergy/AdvReac Type Severity Reaction Status Date / Time No Known Allergies Allergy Verified 09/23/23 09:16 Physical Exam Vitals: Vital Signs Temp Pulse Resp BP Pulse Ox 09/23/23 11:00 86 20 162/90 95 09/23/23 09:36 82 18 09/23/23 09:29 80 18 09/23/23 09:07 97.4 F L 84 20 144/88 91 L Intake and Output 09/22/23 09/23/23 09/23/23 22:59 06:59 14:59 Other: Weight 66.678 kg Results CBC & Chem 7: 09/23/23 09:19 09/23/23 09:19 Labs: Abnormal Lab Results - Last 24 Hours (Table) 09/23/23 09/23/23 09/23/23 Range/Units 09:19 09:19 09:19 RBC 3.51 L (4.30-5.90) m/uL Hgb 10.5 L (13.0-17.5) gm/dL Hct 31.2 L (39.0-53.0) % Plt Count 131 L (150-450) k/uL Lymphocytes # 0.6 L (1.0-4.8) k/uL PT 13.1 H (10.0-12.5) sec INR 1.2 H (<1.2) D-Dimer 3.38 H (<0.60) mg/L FEU Sodium 134 L (137-145) mmol/L Chloride 97 L (98-107) mmol/L BUN 32 H (9-20) mg/dL Creatinine 2.85 H (0.66-1.25) mg/dL Glucose 113 H (74-99) mg/dL Total Protein 5.3 L (6.3-8.2) g/dL Albumin 2.8 L (3.5-5.0) g/dL
[2023-09-23] MEDS: NITROGLYCERIN OINT 1 INCH/GM PACKET TOPICAL SCH (13:32)
[2023-09-23] MEDS: FUROSEMIDE 10 MG/ML 10 ML VIAL IV STA (15:49)
[2023-09-23] MEDS: FUROSEMIDE 10 MG/ML 4 ML VIAL IV SCH (15:53)
[2023-09-23] MEDS: APIXABAN 5 MG TAB PO SCH (19:22)
[2023-09-24 06:29] LABS: Basophils % (A) 0 %; Eosinophils % (A) 1 %; HCT 30.7 % (39.0-53.0); HGB 10.1 gm/dL (13.0-17.5); Lymphocytes # (A) 0.4 k/uL (1.0-4.8); Lymphocytes % (A) 10 %; MCH 29.2 pg (25.0-35.0); MCHC 32.8 g/dL (31.0-37.0); Mean Platelet Volume 8.3; Monocytes # (A) 0.4 k/uL (0-1.0); Monocytes % (A) 9 %; Neutrophils # (A) 3.5 k/uL (1.3-7.7); Neutrophils % (A) 80 %; Platelet Count 152 k/uL (150-450); RBC 3.45 m/uL (4.30-5.90); RDW 13.8 % (11.5-15.5); WBC 4.4 k/uL (3.8-10.6)
[2023-09-24 08:08] LABS: African American GFR (CKD) 19 (>60 ml/min/1.73 sqM); Anion Gap 7 mmol/L; Blood Urea Nitrogen 56 mg/dL (9-20); Calcium 8.7 mg/dL (8.4-10.2); Carbon Dioxide 27 mmol/L (22-30); Chloride 99 mmol/L (98-107); Glucose 168 mg/dL (74-99); Magnesium 2.1 mg/dL (1.6-2.3); Non-African American GFR(CKD) 16 (>60 ml/min/1.73 sqM); Potassium 4.2 mmol/L (3.5-5.1); Sodium 133 mmol/L (137-145)
[2023-09-24] MEDS: carvediloL 12.5 MG TAB PO SCH (08:47)
--- NOTE | 2023-09-24 10:42 | P.CRDCN ---
History of Present Illness History of present illness: HISTORY OF PRESENT ILLNESS: This is a 78-year-old male with a past medical history significant for right AKA, atrial fibrillation, hypertension, hyperlipidemia, CAD with multivessel stenting, chronic kidney disease, peripheral arterial disease, and abdominal aortic aneurysm status post EVAR. Patient follows in the office with Dr. Siegel. We have been asked to see the patient in consultation for pulmonary edema. Patient examined at the bedside in the emergency room. Patient was re cently hospitalized with shortness of breath. He underwent hemodialysis and had improvement in his symptoms and was discharged back to his nursing facility. The patient presented back to the hospital with a chief complaint of shortness of breath. The patient continues to report shortness of breath this morning. He denies any chest pain or pressure. He states he has been taking all of his medications as prescribed. Bedside telemetry reveals atrial fibrillation with controlled ventricular rate. DIAGNOSTICS: - EKG reveals atrial fibrillation with controlled ventricular rate. PVCs. - Chest xray persistent pulmonary venous congestion with cardiomegaly, small pleural effusions and scattered infiltrates. Correlate for fluid overload state. - Laboratory data: WBC 4.4. Hemoglobin 10.1. Platelet count 152. Sodium 133. Potassium 4.2. BUN 56. Creatinine 3.46. Troponin negative x 2. proBNP 19,700. - Current home cardiac medications include Eliquis 10 mg twice a day, hydralazine 100 mg 3 times a day, carvedilol 12.5 mg twice a day, amlodipine 10 mg daily, Demadex 40 mg daily, Lipitor 10 mg at night. - Most recent echocardiogram obtained on September 11, 2023 revealed ejection fractio n 50 to 55%, moderate to severe biatrial enlargement, mild right ventricular dilation, trace MR REVIEW OF SYSTEMS: At the time of my exam: CONSTITUTIONAL: Denies fever or chills. HEENT: Denies blurred vision, vision changes, or eye pain. Denies hemoptysis CARDIOVASCULAR: Denies chest pain. Denies orthopnea. Denies PND. Denies palpitations RESPIRATORY: Denies shortness of breath. GASTROINTESTINAL: Denies abdominal pain. Denies nausea or vomiting. HEMATOLOGIC: Denies bleeding disorders. GENITOURINARY: Denies any blood in urine. SKIN: Denies pruitis. Denies rash. PHYSICAL EXAM: VITAL SIGNS: Reviewed. GENERAL: Well-developed in no acute distress. HEENT: Head is normocephalic. Pupils are equal, round. Sclerae anicteric. Mucous membranes of the mouth are moist. Neck supple. Positive JVD LUNGS: Respirations even and unlabored. Lungs with bibasilar crackles and expiratory wheezing noted HEART: Irregular rate and rhythm. S1 and S2 heard. ABDOMEN: Soft. Nondistended. Nontender. EXTREMITIES: Normal range of motion. No clubbing or cyanosis. Peripheral pulses intact. Right AKA. Left lower extremity edema noted. NEUROLOGIC: Awake and alert. Oriented x 3. ASSESSMENT: Shortness of breath Volume overload secondary to end-stage renal disease Persistent atrial fibrillation with controlled ventricular rate Recently diagnosed right IJ DVT Recently diagnosed left lower extremity DVT Chronic DVT of right lower extremity Coronary artery disease with previous PCI Hypertension Hyperlipidemia Peripheral arterial disease History of abdominal aortic aneurysm status post EVAR History of right [id number] amputation PLAN: No need to repeat echocardiogram as this was performed in September 2023 Resume home cardiac medications Patient has been started on IV Lasix 80 mg every 8 hours per nephrology Daily weights, accurate intake and output, and monitoring of kidney function Hemodialysis per nephrology Further recommendations pending patient course Nurse practitioner note has been reviewed by physician. Signing provider agrees with the documented findings, assessment, and plan of care documented by BARREL CENTERER as a scribe. Past Medical History Past Medical History: Atrial Fibrillation, Deep Vein Thrombosis (DVT), GERD/Reflux, Hearing Disorder / Deafness, Hyperlipidemia, Osteoarthritis (OA), Prostate Disorder, Sleep Apnea/CPAP/BIPAP Additional Past Medical History / Comment(s): DVT Last Myocardial Infarction Date:: UNKNOWN History of Any Multi-Drug Resistant Organisms: None Reported Past Surgical History: Heart Catheterization With Stent Additional Past Surgical History / Comment(s): Femoral bypass right and left, removed steel from right lung and retired up diaphram, right above knee amputee Past Anesthesia/Blood Transfusion Reactions: No Reported Reaction Date of Last Stent Placement:: UNKNOWN Smoking Status: Former smoker - Past Family History Mother Family Medical History: Myocardial Infarction ([place]) Father Family Medical History: Dementia Medications and Allergies Home Medications Medication Instructions Recorded Confirmed Type Cholecalciferol [Vitamin D3 (25 25 mcg PO DAILY@79909/02/23 09/23/23 History Mcg = 1000 Iu)] Tamsulosin [Flomax] 0.4 mg PO DAILY@0800 09/02/23 09/23/23 History Calcium Acetate [PhosLo] 667 mg PO BID-W/MEALS tab 09/12/23 09/23/23 Rx Atorvastatin [Lipitor] 10 mg PO HS@2100 09/17/23 09/23/23 History HYDROcodone/APAP 5-325MG [[place] 1 tab PO Q6H PRN 09/17/23 09/23/23 History 5-325] Isosorbide Mononitrate ER [Imdur] 30 mg PO DAILY@0800 09/17/23 09/23/23 History Magnesium Hydroxide [Milk of 7,200 mg PO Q48H PRN 09/17/23 09/23/23 History Magnesia Concentrate] Na Phos,M-B/Na Phos,Di-Ba [Fleet 133 ml RECTAL DAILY PRN 09/17/23 09/23/23 History Adult] Nepro 237 ml PO SUMOWEFR@79909/17/23 09/23/23 History Nepro 237 ml PO TUTHSA@0609/17/23 09/23/23 History Torsemide [Demadex] 40 mg PO DAILY@0800 09/17/23 09/23/23 History amLODIPine [Norvasc] 10 mg PO DAILY@0809/17/23 09/23/23 History bisacodyL [Dulcolax] 10 mg RECTAL DAILY PRN 09/17/23 09/23/23 History hydrALAZINE HCL [Apresoline] 100 mg PO TID@09/17/23 09/23/23 History Darbepoetin Kalin [Aranesp] 40 mcg SQ Q7D each 09/21/23 09/23/23 Rx carvediloL [Coreg*] 12.5 mg PO BID-W/MEALS #0 tab 09/21/23 09/23/23 Rx Apixaban [Eliquis Starter Pack See Taper PO DIRECTED 09/23/23 09/23/23 History (for VTE)] Menthol-Zinc Oxide Oint 1 applic TOPICAL BID 09/23/23 09/23/23 History [Calmoseptine Ointment] Allergies Allergy/AdvReac Type Severity Reaction Status Date / Time No Known Allergies Allergy Verified 09/23/23 09:16 Physical Exam Vitals: Vital Signs Temp Pulse Resp BP Pulse Ox 09/24/23 09:51 66 18 149/87 96 09/24/23 06:19 79 17 165/88 95 09/24/23 04:17 73 17 95 09/24/23 02:38 79 18 148/89 95 09/24/23 00:00 77 17 154/93 09/23/23 23:30 73 12 166/98 95 09/23/23 22:00 84 15 136/96 93 L 09/23/23 21:30 81 15 158/89 89 L 09/23/23 21:00 71 13 151/90 91 L 09/23/23 20:30 77 15 152/88 90 L 09/23/23 19:43 97.8 F 80 19 139/82 93 L 09/23/23 15:53 83 20 167/95 94 L 09/23/23 14:02 73 18 158/96 93 L 09/23/23 12:00 70 18 159/95 98 09/23/23 11:00 86 20 162/90 95 Results 09/24/23 06:19 09/24/23 06:19 Cardiac Enzymes 09/23/23 09/23/23 09/24/23 Range/Units 09:19 09:19 09:18 AST 27 (17-59) U/L Troponin I 0.013 <0.012 (0.000-0.034) ng/mL CBC 09/24/23 Range/Units 06:19 WBC 4.4 (3.8-10.6) k/uL RBC 3.45 L (4.30-5.90) m/uL Hgb 10.1 L (13.0-17.5) gm/dL Hct 30.7 L (39.0-53.0) % Plt Count 152 (150-450) k/uL Comprehensive Metabolic Panel 09/23/23 09/24/23 Range/Units 09:19 06:19 Sodium 134 L 133 L (137-145) mmol/L Potassium 3.7 4.2 (3.5-5.1) mmol/L Chloride 97 L 99 (98-107) mmol/L Carbon Dioxide 30 27 (22-30) mmol/L BUN 32 H 56 H (9-20) mg/dL Creatinine 2.85 H 3.46 H (0.66-1.25) mg/dL Glucose 113 H 168 H (74-99) mg/dL Calcium 8.8 8.7 (8.4-10.2) mg/dL AST 27 (17-59) U/L ALT 20 (4-49) U/L Alkaline Phosphatase 53 (38-126) U/L Total Protein 5.3 L (6.3-8.2) g/dL Albumin 2.8 L (3.5-5.0) g/dL Current Medications Generic Name Dose Route Start Last Admin Trade Name Freq PRN Reason Stop Dose Admin Amlodipine Besylate 10 mg 09/25/23 08:00 Amlodipine 10 Mg Tab PO DAILY@0800 [facility] Apixaban 10 mg 09/23/23 17:00 09/24/23 07:35 Apixaban 5 Mg Tab PO 10/21/23 16:59 10 mg BID@0800,1700 [facility] Administration Taper Atorvastatin Calcium 10 mg 09/24/23 21:00 Atorvastatin 10 Mg Tab PO HS@2100 [facility] Carvedilol 12.5 mg 09/24/23 08:30 09/24/23 08:47 Carvedilol 12.5 Mg Tab PO 12.5 mg BID-W/MEALS [facility] Administration Furosemide 80 mg 09/24/23 16:00 Furosemide 10 Mg/Ml 10 Ml Vial IV Q8HR [facility] Hydralazine HCl 100 mg 09/24/23 14:00 Hydralazine Hcl 50 Mg Tab PO TID@, [facility] Isosorbide Mononitrate 30 mg 09/25/23 08:00 Isosorbide Mononitrate Er 30 Mg Tab.Er.24h PO DAILY@0800 [facility] Nitroglycerin 1 inch 09/23/23 12:00 09/24/23 06:19 Nitroglycerin Oint 1 Inch/Gm Packet TOPICAL 09/24/23 12:01 Not Given Q6HR [facility] 09/24/23 06:19 09/24/23 06:19
--- NOTE | 2023-09-24 13:12 | P.PN ---
Subjective Progress Note Date: 09/24/23 Hospital course: Patient is a very pleasant 78-year-old male with a past medical history of severe PAD status post right AKA, CAD, hypertension, dyslipidemia, end-stage renal disease on dialysis, diastolic heart failure, paroxysmal atrial fibrillation on Eliquis, and recent DVTs involving lower extremities and right IJ. He presented to the emergency department on 09/23/2023 with a chief complaint of shortness of breath. Patient was recently discharged 2 days ago after coming in with similar complaints, symptoms improved with hemodialysis. Patient was discharged back to nursing facility. He did have a recent CTA a week ago which did not show PE. This time around he did have dialysis in the morning, and then developed acute shortness of breath which has since resolved. He denies any chest pain, abdominal pain, nausea, vomiting, making minimal amounts of urine, no bowel issues. Former smoker, denies any drug use or alcohol use. In the ED patient underwent evaluation. Vital signs upon arrival revealed temperature was 97.4, pulse 84, respiratory 20, blood pressure 144/88, saturating at 91% on room air. WBC 4.9, hemoglobin 10.5 at baseline, platelet 131, at baseline, D-dimer 3.38, sodium 134, bicarb 7, BUN 32, creatinine 2.85, magnesium 2, proBNP 19,000, troponin 0.013. Chest x-ray independently interpreted, shows interstitial opacities with small bilateral pleural effusions. EKG independently interpreted, shows atrial fibrillation, rate controlled. Patient given IV steroids, DuoNebs as well as IV Lasix in the ED. Admitted for hypervolemia in the setting of diastolic heart failure and ESRD. Nephrology consulted. Physical exam: Vital signs reviewed and stable. General: Nontoxic, no distress and appears stated age. Derm: Skin warm and dry, normal coloration for ethnicity. Head: Atraumatic, normocephalic and symmetric. Eyes: EOMs intact, no lid lag, and anicteric sclera Mouth: no lip lesions, mucus membranes moist Cardiovascular: regular rate and rhythm with normal S1S2, no murmur, positive posterior tibial pulses bilaterally, and cap refill < 2 seconds. Lungs: Respirations even, regular, and unlabored on room air. Lungs CTA bilaterally, no rhonchi, no rales, no wheezing, and no accessory muscle usage. Abdominal: soft, nontender to palpation, no guarding, no appreciable organomegaly Ext: ROM intact. No gross muscle atrophy, no edema, no contractures Neuro: Speech clear, face symmetrical and CN II-XII grossly intact with no noted focal neuro deficits Psych: Alert and oriented to person, place, time, and situation. Appropriate and pleasant affect. Assessment and Plan of Care: Acute dyspnea, resolved End-stage renal disease with hypervolemia, on hemodialysis Acute on chronic diastolic heart failure exacerbation with previously known EF of 50 to 55% Hypertension Paroxysmal atrial fibrillation Provoked right IJ DVT, bilateral lower extremity DVTs Anemia of CKD -Nephrology and cardiology following, reviewed documentation in chart. -Continue Lasix 80 mg IV every 8 hours -Continue telemetry monitoring -Continue to monitor daily weights with strict I's and O's, -Continued close monitoring of renal function and electrolytes -Continue Eliquis 10 mg twice daily CAD PAD status post right AKA Dyslipidemia -Continue daily medication regimen with amlodipine 10 mg daily, atorvastatin 10 mg nightly, carvedilol 12.5 mg twice daily, hydralazine 100 mg 3 times daily, and isosorbide mononitrate 30 mg daily. Data and imaging reviewed: Morning labs reviewed. CBC showing stable normocytic anemia with hemoglobin of 10.1. BMP showing hyponatremia with sodium of 133 and elevated renal function with BUN of 56, creatinine of 3.46, GFR of 16. Blood glucose 168. Magnesium 2.1. Repeat troponin less than 0.012. Vital signs reviewed. Blood pressure 149/87, heart rate 66, respiratory rate 18, and SpO2 of 96% on room air. Surrogate decision-maker: Grandchild CODE STATUS: Full code DVT prophylaxis: Eliquis Anticipated discharge date: Pending clinical course Anticipated discharge place: Pending clinical course Patient was seen independently by Nurse Pracitioner. This document was prepared using [employer] dictation software. Please allow for errors in mechanical maintenance instructor, while rare they do occur. Objective - Vital Signs Vital signs: Vital Signs Temp 97.8 F 09/23/23 19:43 Pulse 79 09/24/23 06:19 Resp 17 09/24/23 06:19 BP 165/88 09/24/23 06:19 Pulse Ox 95 09/24/23 06:19 FiO2 Intake & Output 09/23/23 09/24/23 09/24/23 18:59 06:59 18:59 Weight 66.678 kg - Labs CBC & Chem 7: 09/24/23 06:19 09/24/23 06:19 Labs: Abnormal Lab Results - Last 24 Hours (Table) 09/23/23 09/23/23 09/23/23 Range/Units 09:19 09:19 09:19 RBC 3.51 L (4.30-5.90) m/uL Hgb 10.5 L (13.0-17.5) gm/dL Hct 31.2 L (39.0-53.0) % Plt Count 131 L (150-450) k/uL Lymphocytes # 0.6 L (1.0-4.8) k/uL PT 13.1 H (10.0-12.5) sec INR 1.2 H (<1.2) D-Dimer 3.38 H (<0.60) mg/L FEU Sodium 134 L (137-145) mmol/L Chloride 97 L (98-107) mmol/L BUN 32 H (9-20) mg/dL Creatinine 2.85 H (0.66-1.25) mg/dL Glucose 113 H (74-99) mg/dL Total Protein 5.3 L (6.3-8.2) g/dL Albumin 2.8 L (3.5-5.0) g/dL 09/24/23 09/24/23 Range/Units 06:19 06:19 RBC 3.45 L (4.30-5.90) m/uL Hgb 10.1 L (13.0-17.5) gm/dL Hct 30.7 L (39.0-53.0) % Plt Count (150-450) k/uL Lymphocytes # 0.4 L (1.0-4.8) k/uL PT (10.0-12.5) sec INR (<1.2) D-Dimer (<0.60) mg/L FEU Sodium 133 L (137-145) mmol/L Chloride (98-107) mmol/L BUN 56 H (9-20) mg/dL Creatinine 3.46 H (0.66-1.25) mg/dL Glucose 168 H (74-99) mg/dL Total Protein (6.3-8.2) g/dL Albumin (3.5-5.0) g/dL
[2023-09-24] MEDS: hydrALAZINE HCL 50 MG TAB PO SCH (14:06)
[2023-09-24] MEDS: DARBEPOETIN ALFA 40 MCG/0.4 ML SYRINGE SQ SCH (14:06)
[2023-09-24] MEDS: FUROSEMIDE 10 MG/ML 10 ML VIAL IV SCH (16:16)
[2023-09-24] MEDS: ATORVASTATIN 10 MG TAB PO SCH (20:46)
[2023-09-24] MEDS: HYDROcodone/APAP 5-325MG 1 EACH TAB PO PRN (20:53)
--- NOTE | 2023-09-25 10:40 | P.PN ---
Subjective HISTORY OF PRESENT ILLNESS: This is a 78-year-old male with a past medical history significant for right AKA, atrial fibrillation, hypertension, hyperlipidemia, CAD with multivessel stenting, chronic kidney disease, peripheral arterial disease, and abdominal aortic aneurysm status post EVAR. Patient follows in the office with Dr. Siegel. We have been asked to see the patient in consultation for pulmonary edema. Patient examined at the bedside in the emergency room. Patient was recently hospitalized with shortness of breath. He underwent hemodialysis and had improvement in his symptoms and was discharged back to his nursing facility. The patient presented back to the hospital with a chief complaint of shortness of breath. The patient continues to report shortness of breath this morning. He denies any chest pain or pressure. He states he has been taking all of his medications as prescribed. Bedside telemetry reveals atrial fibrillation with controlled ventricular rate. DIAGNOSTICS: - EKG reveals atrial fibrillation with controlled ventricular rate. PVCs. - Chest xray persistent pulmonary venous congestion with cardiomegaly, small pleural effusions and scattered infiltrates. Correlate for fluid overload state. - Laboratory data: WBC 4.4. Hemoglobin 10.1. Platelet count 152. Sodium 133. Potassium 4.2. BUN 56. Creatinine 3.46. Troponin negative x 2. proBNP 19,700. - Current home cardiac medications include Eliquis 10 mg twice a day, hydralazine 100 mg 3 times a day, carvedilol 12.5 mg twice a day, amlodipine 10 mg daily, Demadex 40 mg daily, Lipitor 10 mg at night. - Most recent echocardiogram obtained on September 11, 2023 revealed ejection fraction 50 to 55%, moderate to severe biatrial enlargement, mild right ventricular dilation, trace MR 09/25/2023 Patient examined this morning. He remains in the emergency room. Patient is currently undergoing hemodialysis. Patient denies any chest pain or pressure. He denies shortness of breath. Vital signs are stable. PHYSICAL EXAM: VITAL SIGNS: Reviewed. GENERAL: Well-developed in no acute distress. HEENT: Head is normocephalic. Pupils are equal, round. Sclerae anicteric. Mucous membranes of the mouth are moist. Neck supple. Positive JVD LUNGS: Respirations even and unlabored. Lungs diminished bilaterally HEART: Irregular rate and rhythm. S1 and S2 heard. ABDOMEN: Soft. Nondistended. Nontender. EXTREMITIES: Normal range of motion. No clubbing or cyanosis. Peripheral pulses intact. Right AKA. Left lower extremity edema noted. NEUROLOGIC: Awake and alert. Oriented x 3. ASSESSMENT: Shortness of breath Volume overload secondary to end-stage renal disease Persistent atrial fibrillation with controlled ventricular rate Recently diagnosed right IJ DVT Recently diagnosed left lower extremity DVT Chronic DVT of right lower extremity Coronary artery disease with previous PCI Hypertension Hyperlipidemia Peripheral arterial disease History of abdominal aortic aneurysm status post EVAR History of right [id number] amputation PLAN: No need to repeat echocardiogram as this was performed in September 2023 Resume home cardiac medications Continue IV diuretics per nephrology Daily weights, accurate intake and output, and monitoring of kidney function Hemodialysis per nephrology Patient is stable for discharge home today from a cardiac standpoint Further recommendations pending patient course Nurse practitioner note has been reviewed by physician. Signing provider agrees with the documented findings, assessment, and plan of care documented by MEDICAL PHYSICS PROFESSOR as a scribe. Objective - Vital Signs Vital signs: Vital Signs Temp 97.7 F 09/25/23 03:43 Pulse 59 L 09/25/23 05:35 Resp 17 09/25/23 05:35 BP 154/92 09/25/23 05:35 Pulse Ox 96 09/25/23 05:35 FiO2 Intake & Output 09/24/23 09/25/23 09/25/23 18:59 06:59 18:59 Intake Total 500 Output Total 3500 50 Balance -3000 -50 Intake: Hemodialysis 500 Output: Urine 50 Hemodialysis 3500 - Labs CBC & Chem 7: 09/24/23 06:19 09/24/23 06:19
--- NOTE | 2023-09-25 12:00 | P.NPCON ---
History of Present Illness - Reason for Consult end stage renal disease - History of Present Illness patient is a 78-year-old male with end-stage renal disease maintained on hemodialysis on a Sunday schedule. Patient was admitted to the hospital with complaints of shortness of breath.he was recently discharged from the hospital about 2 days ago. Shortness of breath this time occurred during dialysis on Sunday. Patient did not have any chest pains fever chills nausea vomiting or abdominal pain. chest x-ray showed significant pulmonary vascular congestion and cardiomegaly. Patient will be dialyzed today and he will have hemodialysis again in a.m. Patient is seen in the ER. Review of Systems as per HPI Past Medical History Past Medical History: Atrial Fibrillation, Deep Vein Thrombosis (DVT), GERD/Reflux, Hearing Disorder / Deafness, Hyperlipidemia, Osteoarthritis (OA), Prostate Disorder, Sleep Apnea/CPAP/BIPAP Additional Past Medical History / Comment(s): DVT Last Myocardial Infarction Date:: UNKNOWN History of Any Multi-Drug Resistant Organisms: None Reported Past Surgical History: Heart Catheterization With Stent Additional Past Surgical History / Comment(s): Femoral bypass right and left, removed steel from right lung and retired up diaphram, right above knee amputee Past Anesthesia/Blood Transfusion Reactions: No Reported Reaction Date of Last Stent Placement:: UNKNOWN Smoking Status: Former smoker - Past Family History Mother Family Medical History: Myocardial Infarction ([place]) Father Family Medical History: Dementia Medications and Allergies Home Medications Medication Instructions Recorded Confirmed Type Cholecalciferol [Vitamin D3 (25 25 mcg PO DAILY@0809/02/23 09/23/23 History Mcg = 1000 Iu)] Tamsulosin [Flomax] 0.4 mg PO DAILY@79909/02/23 09/23/23 History Calcium Acetate [PhosLo] 667 mg PO BID-W/MEALS tab 09/12/23 09/23/23 Rx Atorvastatin [Lipitor] 10 mg PO HS@2100 09/17/23 09/23/23 History HYDROcodone/APAP 5-325MG [Rusk 1 tab PO Q6H PRN 09/17/23 09/23/23 History 5-325] Isosorbide Mononitrate ER [Imdur] 30 mg PO DAILY@0800 09/17/23 09/23/23 History Magnesium Hydroxide [Milk of 7,200 mg PO Q48H PRN 09/17/23 09/23/23 History Magnesia Concentrate] Na Phos,M-B/Na Phos,Di-Ba [Fleet 133 ml RECTAL DAILY PRN 09/17/23 09/23/23 History Adult] Nepro 237 ml PO SUMOWEFR@0800 09/17/23 09/23/23 History Nepro 237 ml PO TUTHSA@0600 09/17/23 09/23/23 History Torsemide [Demadex] 40 mg PO DAILY@0800 09/17/23 09/23/23 History amLODIPine [Norvasc] 10 mg PO DAILY@0800 09/17/23 09/23/23 History bisacodyL [Dulcolax] 10 mg RECTAL DAILY PRN 09/17/23 09/23/23 History hydrALAZINE HCL [Apresoline] 100 mg PO TID@,,09/17/23 09/23/23 History Darbepoetin Kalin [Aranesp] 40 mcg SQ Q7D each 09/21/23 09/23/23 Rx carvediloL [Coreg*] 12.5 mg PO BID-W/MEALS #0 tab 09/21/23 09/23/23 Rx Apixaban [Eliquis Starter Pack See Taper PO DIRECTED 09/23/23 09/23/23 History (for VTE)] Menthol-Zinc Oxide Oint 1 applic TOPICAL BID 09/23/23 09/23/23 History [Calmoseptine Ointment] Allergies Allergy/AdvReac Type Severity Reaction Status Date / Time No Known Allergies Allergy Verified 09/23/23 09:16 Physical Exam Vitals: Vital Signs Temp Pulse Pulse Resp BP BP Pulse Ox 09/25/23 05:35 59 L 17 154/92 96 09/25/23 03:43 97.7 F 66 17 146/85 92 L 09/25/23 01:30 64 18 155/84 96 09/24/23 19:00 59 L 12 148/81 09/24/23 18:00 63 14 147/75 99 09/24/23 17:48 97.7 F 67 20 147/75 96 09/24/23 17:00 65 15 160/104 97 09/24/23 16:00 67 12 143/72 100 09/24/23 15:00 61 14 156/87 98 09/24/23 14:07 70 14 161/105 99 09/24/23 14:00 68 18 151/85 09/24/23 13:00 65 16 143/77 97 09/24/23 12:00 58 L 9 L 159/101 97 09/24/23 11:57 57 L 16 162/81 96 Intake and Output 09/24/23 09/25/23 09/25/23 22:59 06:59 14:59 Intake Total 500 Output Total 3500 50 Balance -3000 -50 Intake: Hemodialysis 500 Output: Urine 50 Hemodialysis 3500 patient is awake, comfortable, no acute distress Examination of the heart S1 and S2 Examination of the lungs decreased breath sounds at the bases with basilar minimal basal crackles Abdomen is soft nontender 2+ edema left leg with right AKA MINI SHIFTER exam grossly intact Results - Lab Results Most recent lab results Calcium 8.7 mg/dL (8.4-10.2) 09/24/23 06:19 Magnesium 2.1 mg/dL (1.6-2.3) 09/24/23 06:19 09/24/23 06:19 09/24/23 06:19 Assessment and Plan Assessment: 1. End-stage renal disease on hemodialysis on Sunday schedule 2. Volume overload 3. Persistent A. fib with controlled ventricular response 4. History of recent right IJ DVT and bilateral lower extremity DVT. Patient has right IJ permacath and he is maintained on anticoagulation. Plan: hemodialysis today and repeat in a.m. Increase UF as tolerated. Switch Lasix to 80 mg every 8 hours. Continue with eliquis.
--- NOTE | 2023-09-25 12:03 | P.PN ---
Subjective patient is seen for follow-up for end-stage renal disease. Status post hemodialysis yesterday. patient tolerated 3.5 L of UF. patient is seen in the ER. He is currently seen on hemodialysis. Tolerating treatment well. UF will be increased. Objective - Vital Signs Vital signs: Vital Signs Temp 97.7 F 09/25/23 03:43 Pulse 59 L 09/25/23 05:35 Resp 17 09/25/23 05:35 BP 154/92 09/25/23 05:35 Pulse Ox 96 09/25/23 05:35 FiO2 Intake & Output 09/24/23 09/25/23 09/25/23 18:59 06:59 18:59 Intake Total 500 Output Total 3500 50 Balance -3000 -50 Intake: Hemodialysis 500 Output: Urine 50 Hemodialysis 3500 - Exam patient is awake, comfortable, no acute distress Examination of the heart S1 and S2 Examination of the lungs decreased breath sounds at the bases with basilar mi nimal basal crackles Abdomen is soft nontender 2+ edema left leg with right AKA SENIOR UI UX DESIGNER exam grossly intact - Labs CBC & Chem 7: 09/24/23 06:19 09/24/23 06:19 Assessment and Plan Assessment: 1. End-stage renal disease on hemodialysis on Sunday schedule 2. Volume overload 3. Persistent A. fib with controlled ventricular response 4. History of recent right IJ DVT and bilateral lower extremity DVT. Patient has right IJ permacath and he is maintained on anticoagulation. Plan: hemodialysis today with increased UF as tolerated. patient can be discharged from nephrology standpoint post hemodialysis. Continue with Dimitrios
[2023-09-25] MEDS: ISOSORBIDE MONONITRATE ER 30 MG TAB.ER.24H PO SCH (12:19)
[2023-09-25] MEDS: amLODIPine 10 MG TAB PO SCH (12:19)
[2023-09-25] MEDS: TAMSULOSIN 0.4 MG CAP.ER.24H PO SCH (12:19)
--- NOTE | 2023-09-25 13:50 | P.DS ---
Providers Date of admission: 09/23/23 11:48 Expected date of discharge: 09/25/23 Attending physician: Lee Zuleta MD Consults: 09/23/23 11:48 Consult Physician Routine Consulting Provider: [facility] Consult Reason/Comments: Acute pulmonary edema Do you want consulting provider notified?: Yes Consult Physician Routine Consulting Provider: Kunal Avelar Consult Reason/Comments: Renal failure with fluid overload Do you want consulting provider notified?: Yes Primary care physician: [facility] Hospital Course: Discharge Diagnosis: Acute dyspnea, resolved End-stage renal disease with hypervolemia, on hemodialysis Acute on chronic diastolic heart failure exacerbation with previously known EF of 50 to 55% Hypertension Paroxysmal atrial fibrillation Provoked right IJ DVT, bilateral lower extremity DVTs Anemia of CKD CAD PAD status post right AKA Dyslipidemia Hospital Course: Patient is a very pleasant 78-year-old male with a past medical history of severe PAD status post right AKA, CAD, hypertension, dyslipidemia, end-stage renal disease on dialysis, diastolic heart failure, paroxysmal atrial fibrillation on Eliquis, and recent DVTs involving lower extremities and right IJ. He presented to the emergency department on 09/23/2023 with a chief complaint of shortness of breath. Patient was recently discharged 2 days ago after coming in with similar complaints, symptoms improved with hemodialysis. Patient was discharged back to nursing facility. He did have a recent CTA a week ago which did not show PE. This time around he did have dialysis in the morning, and then developed acute shortness of breath which has since resolved. He denies any chest pain, abdominal pain, nausea, vomiting, making minimal amounts of urine, no bowel issues. Former smoker, denies any drug use or alcohol use. In the ED patient underwent evaluation. Vital signs upon arrival revealed temperature was 97.4, pulse 84, respiratory 20, blood pressure 144/88, saturating at 91% on room air. WBC 4.9, hemoglobin 10.5 at baseline, platelet 131, at baseline, D-dimer 3.38, sodium 134, bicarb 7, BUN 32, creatinine 2.85, magnesium 2, proBNP 19,000, troponin 0.013. Chest x-ray independently interpreted, shows interstitial opacities with small bilateral pleural effusions. EKG independently interpreted, shows atrial fibrillation, rate controlled. Patient given IV steroids, DuoNebs as well as IV Lasix in the ED. Admitted for hypervolemia in the setting of diastolic heart failure and ESRD. Nephrology consulted. Patient was evaluated by rn hemodialysis and manager of corporate. He underwent successful IV diuresis and received 2 consistent dialysis sessions. He has been cleared by cardiology and nephrology for discharge. Patient to follow-up outpatient with PCP, manager of corporate, and rn hemodialysis. Patient instructed to resume dialysis as scheduled on , 09/27/2023. No medication changes were made this admission. Nephrology recommending patient to resume home torsemide 40 mg daily. Physical exam: Vital signs reviewed and stable. General: Nontoxic, no distress and appears stated age. Derm: Skin warm and dry, normal coloration for ethnicity. Head: Atraumatic, normocephalic and symmetric. Eyes: EOMs intact, no lid lag, and anicteric sclera Mouth: no lip lesions, mucus membranes moist Cardiovascular: regular rate and rhythm with normal S1S2, no murmur, positive posterior tibial pulses bilaterally, and cap refill < 2 seconds. Lungs: Respirations even, regular, and unlabored on 1 L of oxygen. Lungs diminished with soft expiratory wheezes, no rhonchi, rales, or crackles noted. Abdominal: soft, nontender to palpation, no guarding, no appreciable organomegaly Ext: Right AKA. no gross muscle atrophy, 1+ left lower extremity pitting edema. Neuro: Speech clear, face symmetrical and CN II-XII grossly intact with no noted focal neuro deficits Psych: Alert and oriented to person, place, time, and situation. Appropriate and pleasant affect. A total of 38 minutes of time were spent preparing this complex discharge summary. Pt was discharged on 09/25/2023 at 1:47 PM. Patient was seen independently by Nurse Practitioner. This document was prepared using [employer] dictation software. Please allow for errors in wool fleece sorter while rare they do occur. Carlos Swann NP rendered care for this patient independently, reviewed the findings and plan as documented in the note above. I did not physically speak with or examine the patient on this date. Patient Condition at Discharge: Stable Plan - Discharge Summary New Discharge Prescriptions: Continue Tamsulosin [Flomax] 0.4 mg PO DAILY@0800 Cholecalciferol [Vitamin D3 (25 Mcg = 1000 Iu)] 25 mcg PO DAILY@0800 HYDROcodone/APAP 5-325MG [Vance 5-325] 1 tab PO Q6H PRN PRN Reason: Pain Na Phos,M-B/Na Phos,Di-Ba [Fleet Adult] 133 ml RECTAL DAILY PRN PRN Reason: Constipation bisacodyL [Dulcolax] 10 mg RECTAL DAILY PRN PRN Reason: Constipation Torsemide [Demadex] 40 mg PO DAILY@0800 Nepro 237 ml PO SUMOWEFR@0800 amLODIPine [Norvasc] 10 mg PO DAILY@0800 Darbepoetin Kalin [Aranesp] 40 mcg SQ Q7D each Apixaban [Eliquis Starter Pack (for VTE)] See Taper PO DIRECTED Calcium Acetate [PhosLo] 667 mg PO BID-W/MEALS tab Magnesium Hydroxide [Milk of Magnesia Concentrate] 7,200 mg PO Q48H PRN PRN Reason: Constipation hydrALAZINE HCL [Apresoline] 100 mg PO TID@06,14,22 Nepro 237 ml PO TUTHSA@0600 Atorvastatin [Lipitor] 10 mg PO HS@2100 Isosorbide Mononitrate ER [Imdur] 30 mg PO DAILY@0800 carvediloL [Coreg*] 12.5 mg PO BID-W/MEALS #0 tab Menthol-Zinc Oxide Oint [Calmoseptine Ointment] 1 applic TOPICAL BID Discharge Medication List Cholecalciferol [Vitamin D3 (25 Mcg = 1000 Iu)] 25 mcg PO DAILY@0800 09/02/23 [History] Tamsulosin [Flomax] 0.4 mg PO DAILY@0800 09/02/23 [History] Calcium Acetate [PhosLo] 667 mg PO BID-W/MEALS tab 09/12/23 [Rx] Atorvastatin [Lipitor] 10 mg PO HS@2100 09/17/23 [History] HYDROcodone/APAP 5-325MG [Vance 5-325] 1 tab PO Q6H PRN 09/17/23 [History] Isosorbide Mononitrate ER [Imdur] 30 mg PO DAILY@0800 09/17/23 [History] Magnesium Hydroxide [Milk of Magnesia Concentrate] 7,200 mg PO Q48H PRN 09/17/23 [History] Na Phos,M-B/Na Phos,Di-Ba [Fleet Adult] 133 ml RECTAL DAILY PRN 09/17/23 [History] Nepro 237 ml PO SUMOWEFR@0800 09/17/23 [History] Nepro 237 ml PO TUTHSA@0600 09/17/23 [History] Torsemide [Demadex] 40 mg PO DAILY@0809/17/23 [History] amLODIPine [Norvasc] 10 mg PO DAILY@0809/17/23 [History] bisacodyL [Dulcolax] 10 mg RECTAL DAILY PRN 09/17/23 [History] hydrALAZINE HCL [Apresoline] 100 mg PO TID@,,09/17/23 [History] Darbepoetin Kalin [Aranesp] 40 mcg SQ Q7D each 09/21/23 [Rx] carvediloL [Coreg*] 12.5 mg PO BID-W/MEALS #0 tab 09/21/23 [Rx] Apixaban [Eliquis Starter Pack (for VTE)] See Taper PO DIRECTED 09/23/23 [History] Menthol-Zinc Oxide Oint [Calmoseptine Ointment] 1 applic TOPICAL BID 09/23/23 [History] Follow up Appointment(s)/Referral(s): Chayo Juares MD [STAFF PHYSICIAN] - 1 Week Ahsan Díaz MD [STAFF PHYSICIAN] - 1 Week [facility] [Primary Care Provider] - 1-2 days Patient Instructions/Handouts: Heart Failure (DC), Dialysis Diet (DC), End Stage Kidney Disease (DC) Activity/Diet/Wound Care/Special Instructions: Activity: As tolerated. Take breaks as needed. Diet: Heart healthy and carb consistent diet. Avoid salts, or foods with hidden salts such as canned or boxed foods and frozen dinners. Extra salt makes your heart work harder and traps the fluid in your body for longer. Special Instructions: Weigh yourself every morning after you urinate. If you gain 3 pounds overnight or more than 5 pounds in one week, call your rn hemodialysis for guidance on your medications or they may want to see you in their office. Keep a daily log of your weights and be sure to bring with you at follow up visits with your PCP, rn hemodialysis and manager of corporate. Take all of your medications as directed, especially your water pills. NEVER skip a dose. And remember to keep all of your doctor's appointments and follow- up as needed. Compression stockings are also a great way to improve lower extremity circulation and prevent/improve your left lower extremity edema. Call your rn hemodialysis and manager of corporate if you notice any extra swelling in your leg, ankle, foot or abdomen, if you have a new dry cough, if your shortness of breath worsens with activity or at rest, or if you feel more fatigued. Thank you for allowing us to participate in your care, it was truly a pleasure having you for our patient!!! Discharge Disposition: TRANSFER TO SNF/ECF
[2023-09-25 17:21] VITALS: BP 163/92; PULSE 61; RESP 18; TEMP 97.9
== END 2023-09-25 15:40 ==
LOC: EC 09:05 → 3SCARD 11:48
PROVIDERS: ADMIT Family Medicine; ATTEND Family Medicine
DX: R06.00 Dyspnea, unspecified (principal); I13.2 Hypertensive heart and chronic kidney disease with heart failure and with stage 5 chronic kidney disease, or end stage renal disease; I50.33 Acute on chronic diastolic (congestive) heart failure; N18.6 End stage renal disease; D63.1 Anemia in chronic kidney disease; I48.19 Other persistent atrial fibrillation; K21.9 Gastro-esophageal reflux disease without esophagitis; E78.5 Hyperlipidemia, unspecified; G47.30 Sleep apnea, unspecified; I25.10 Atherosclerotic heart disease of native coronary artery without angina pectoris; I73.9 Peripheral vascular disease, unspecified; Z86.718 Personal history of other venous thrombosis and embolism; Z89.611 Acquired absence of right leg above knee; Z95.5 Presence of coronary angioplasty implant and graft; Z87.891 Personal history of nicotine dependence; Z99.2 Dependence on renal dialysis; Z79.899 Other long term (current) drug therapy
CPT/HCPCS: 96376 ×3; 96374; 96375; 99285; 51798 ×2; 36415; 94640; 93005; 85379; 83880; 80053; 80048; 83605; 83735 ×2; 84484 ×2; 85025 ×2; 85610; 85730; 71046; G0378 ×3; J1940 ×5; J0881; J2919; 90935

== ENCOUNTER → 2023-10-20 | Outpatient (CLI) | payer MEDICARE, BC | END | disposition home or self-care (01) | LOC: LABWHC1 08:26 | PROVIDERS: ATTEND Nurse Practitioner Family | DX: E87.6 Hypokalemia (principal) | CPT/HCPCS: 36415; 84132 ==

== ENCOUNTER 2023-10-31 17:16 | Inpatient (IN) | payer MEDICARE, BC ==
--- NOTE | 2023-10-31 18:26 | ED ---
General Adult HPI - General Chief complaint: Recheck/Abnormal Lab/Rx Stated complaint: Abn Labs Time Seen by Provider: 10/31/23 17:58 Source: patient, family Mode of arrival: wheelchair - History of Present Illness Initial comments: Dictation was produced using [employer] dictation software. please excuse any grammatical, word or spelling errors. Chief Complaint: 78-year-old male presents emergency department for abnormal outpatient labs History of Present Illness: Patient 58-year-old male who presents emergency department for abnormal outpatient labs. Patient had blood work drawn this morning found to have elevated potassium and creatinine levels. Patient was just released from [facility]. At that time he was placed on temporary dialysis. He had dialysis catheter removed recently. Patient states that today he has been feeling little rundown. Patient otherwise denies any focal medical complaints. Granddaughter at bedside provides history of present illness. The ROS documented in this emergency department record has been reviewed and confirmed by me. Those systems with pertinent positive or negative responses have been documented in the HPI. All other systems are other negative and/or noncontributory. - Related Data Home Medications Medication Instructions Recorded Confirmed Cholecalciferol [Vitamin D3 (25 25 mcg PO DAILY@79909/02/23 09/23/23 Mcg = 1000 Iu)] Tamsulosin [Flomax] 0.4 mg PO DAILY@79909/02/23 09/23/23 Atorvastatin [Lipitor] 10 mg PO HS@2100 09/17/23 09/23/23 HYDROcodone/APAP 5-325MG [[place] 1 tab PO Q6H PRN 09/17/23 09/23/23 5-325] Isosorbide Mononitrate ER [Imdur] 30 mg PO DAILY@79909/17/23 09/23/23 Magnesium Hydroxide [Milk of 7,200 mg PO Q48H PRN 09/17/23 09/23/23 Magnesia Concentrate] Na Phos,M-B/Na Phos,Di-Ba [Fleet 133 ml RECTAL DAILY PRN 09/17/23 09/23/23 Adult] Nepro 237 ml PO SUMOWEFR@79909/17/23 09/23/23 Nepro 237 ml PO TUTHSA@0609/17/23 09/23/23 Torsemide [Demadex] 40 mg PO DAILY@0800 09/17/23 09/23/23 amLODIPine [Norvasc] 10 mg PO DAILY@0800 09/17/23 09/23/23 bisacodyL [Dulcolax] 10 mg RECTAL DAILY PRN 09/17/23 09/23/23 hydrALAZINE HCL [Apresoline] 100 mg PO TID@06,14,09/17/23 09/23/23 Apixaban [Eliquis Starter Pack See Taper PO DIRECTED 09/23/23 09/23/23 (for VTE)] Menthol-Zinc Oxide Oint 1 applic TOPICAL BID 09/23/23 09/23/23 [Calmoseptine Ointment] Previous Rx's Medication Instructions Recorded Calcium Acetate [PhosLo] 667 mg PO BID-W/MEALS tab 09/12/23 Darbepoetin Kalin [Aranesp] 40 mcg SQ Q7D each 09/21/23 carvediloL [Coreg*] 12.5 mg PO BID-W/MEALS #0 tab 09/21/23 Allergies Allergy/AdvReac Type Severity Reaction Status Date / Time No Known Allergies Allergy Verified 10/31/23 17:56 Review of Systems ROS Statement: Those systems with pertinent positive or pertinent negative responses have been documented in the HPI. ROS Other: All systems not noted in ROS Statement are negative. Past Medical History Past Medical History: Atrial Fibrillation, Deep Vein Thrombosis (DVT), GERD /Reflux, Hearing Disorder / Deafness, Hyperlipidemia, Osteoarthritis (OA), Prostate Disorder, Sleep Apnea/CPAP/BIPAP Additional Past Medical History / Comment(s): DVT Last Myocardial Infarction Date:: UNKNOWN History of Any Multi-Drug Resistant Organisms: None Reported Past Surgical History: Heart Catheterization With Stent Additional Past Surgical History / Comment(s): Femoral bypass right and left, removed steel from right lung and retired up diaphram, right above knee amputee Past Anesthesia/Blood Transfusion Reactions: No Reported Reaction Date of Last Stent Placement:: UNKNOWN Past Psychological History: Depression, PTSD Smoking Status: Former smoker Past Alcohol Use History: None Reported - Past Family History Mother Family Medical History: Myocardial Infarction ([place]) Father Family Medical History: Dementia General Exam - General Exam Comments Initial Comments: PHYSICAL EXAM: General Impression: Alert and oriented x3, not in acute distress HEENT: Normocephalic atraumatic, extra-ocular movements intact, pupils equal and reactive to light bilaterally, mucous membranes moist. Cardiovascular: Heart regular rate and rhythm Chest: Able to complete full sentences, no retractions, no tachypnea Abdomen: abdomen soft, non-tender, non-distended, no organomegaly Musculoskeletal: Amputation to the right lower extremity Motor: no focal deficits noted Neurological: CN II-XII grossly intact, no focal motor or sensory deficits noted Skin: Intact with no visualized rashes Psych: Normal affect and mood Course Vital Signs 10/31/23 17:53 Temperature 97.4 F L Pulse Rate 46 L Respiratory 16 Rate Blood Pressure 131/81 O2 Sat by Pulse 93 L Oximetry EKG Findings - EKG Comments: EKG Findings:: My EKG interpretation: Ventricular rate 77, A-fib, QRS 126, QTc 4 3. No [place] prolongation, no QTC prolongation, no ST or T-wave changes noted. EKG compared to September 23, 2023 showing no changes. Overall, this EKG is unremarkable Medical Decision Making - Medical Decision Making Was pt. sent in by a medical professional or institution (, PA, [employer], urgent care, hospital, or penitentiary...) When possible be specific @ -No Did you speak to anyone other than the patient for history (EMS, parent, family, police, friend...)? What history was obtained from this source @ -No Did you review nursing and triage notes (agree or disagree)? Why? @ -I reviewed and agree with nursing and triage notes Were old charts reviewed (outside hosp., previous admission, EMS record, old EKG, old radiological studies, urgent care reports/EKG's, penitentiary records)? Report findings @ -No old charts were reviewed Differential Diagnosis (chest pain, altered mental status, abdominal pain women, abdominal pain men, vaginal bleeding, musculoskeletal, weakness, fever, dyspnea, syncope, headache, dizziness, GI bleed, back pain, seizure, CVA, palpatations, mental health)? @ -Differential Weakness: Hypoglycemia, shock, sepsis, hyponatremia, anemia, infection, VA, ETOH, adverse medicine reaction, overdose, stroke, this is not meant to be an all-inclusive list. EKG interpreted by me (3pts min.). @ -See above X-rays interpreted by me (1pt min.). @ -None done CT interpreted by me (1pt min.). @ -None done U/S interpreted by me (1pt. min.). @ -None done What testing was considered but not performed or refused? (CT, X-rays, U/S, labs)? Why? @ -None What meds were considered but not given or refused? Why? @ -None Did you discuss the management of the patient with other professionals (professionals i.e. , PA, [employer], lab, RT, psych nurse, social worker health services, mutuel department manager, teacher, contract officer, high risk case manager)? Give summary @ -Case discussed with the technical assoc who requested that vascular surgery be contacted for placement of HD catheter. Case also discussed with vascular surgery who is happy to consult on patient. Was smoking cessation discussed for >3mins.? @ -No Was critical care preformed (if so, how long)? @ -Yes, 33 minutes Were there social determinants of health that impacted care today? How? (Homelessness, low income, unemployed, alcoholism, drug addiction, transportation, low edu. Level, literacy, decrease access to med. care, usp, rehab)? @ -No Was there de-escalation of care discussed even if they declined (Discuss DNR or withdrawal of care, Hospice)? DNR status @ -No What co-morbidities impacted this encounter? (DM, HTN, Smoking, COPD, CAD, Cancer, CVA, ARF, Chemo, Hep., AIDS, mental health diagnosis, sleep apnea, morbid obesity)? @ -None Was patient admitted / discharged? Hospital course, mention meds given and route, prescriptions, significant lab abnormalities, going to OR and other pertinent info. @ -78-year-old male presents emergency department for abnormal outpatient labs. Patient previously was on hemodialysis however catheter was removed. He had follow-up labs today and found to have elevated potassium and creatinine. Patient complaining of weakness. Vital signs shows bradycardia of 46. Rest of vital signs within acceptable limits. Patient is well-appearing at the bedside. Potassium 7.2. Creatinine is 12.12, BUN 114 bicarb of 13. Patient will be admitted. Undiagnosed new problem with uncertain prognosis? @ -No Drug Therapy requiring intensive monitoring for toxicity (Heparin, Nitro, Insulin, Cardizem)? @ -No Were any procedures done? @ -No Diagnosis/symptom? Acute, or Chronic, or Acute on Chronic? Uncomplicated (without systemic symptoms) or Complicated (systemic symptoms)? @ -Kidney failure Side effects of treatment? @ -No Exacerbation, Progression, or Severe Exacerbation? @ -No Poses a threat to life or bodily function? How? (Chest pain, [place], VA, pneumonia, PE, COPD, DKA, ARF, appy, cholecystitis, CVA, Diverticulitis, Homicidal, Suicidal, threat to staff... and all critical care pts) @ -yes - Lab Data Result diagrams: 10/31/23 18:28 10/31/23 18:28 Lab Results 10/31/23 10/31/23 Range/Units 18:28 18:28 WBC 6.3 (3.8-10.6) k/uL RBC 3.80 L (4.30-5.90) m/uL Hgb 11.3 L (13.0-17.5) gm/dL Hct 34.1 L (39.0-53.0) % MCV 89.8 (80.0-100.0) fL MCH 29.7 (25.0-35.0) pg MCHC 33.1 (31.0-37.0) g/dL RDW 15.0 (11.5-15.5) % Plt Count 187 (150-450) k/uL MPV 8.7 Neutrophils % 74 % Lymphocytes % 12 % Monocytes % 8 % Eosinophils % 3 % Basophils % 1 % Neutrophils # 4.7 (1.3-7.7) k/uL Lymphocytes # 0.8 L (1.0-4.8) k/uL Monocytes # 0.5 (0-1.0) k/uL Eosinophils # 0.2 (0-0.7) k/uL Basophils # 0.1 (0-0.2) k/uL Sodium 134 L (137-145) mmol/L Potassium 7.2 H* (3.5-5.1) mmol/L Chloride 105 (98-107) mmol/L Carbon Dioxide 13 L (22-30) mmol/L Anion Gap 16 mmol/L BUN 114 H* (9-20) mg/dL Creatinine 12.12 H* (0.66-1.25) mg/dL Est GFR (CKD-EPI)AfAm 4 (>60 ml/min/1.73 sqM) Est GFR (CKD-EPI)NonAf 4 (>60 ml/min/1.73 sqM) Glucose 105 H (74-99) mg/dL Calcium 8.0 L (8.4-10.2) mg/dL Magnesium 2.1 (1.6-2.3) mg/dL Total Bilirubin 0.7 (0.2-1.3) mg/dL AST 16 L (17-59) U/L ALT 14 (4-49) U/L Alkaline Phosphatase 56 (38-126) U/L Total Protein 5.7 L (6.3-8.2) g/dL Albumin 3.4 L (3.5-5.0) g/dL Disposition Clinical Impression: Kidney failure Disposition: ADMITTED IP TO THIS HOSP Condition: Fair Referrals: None,Stated [REFERRING] - 1-2 days Decision Time: 19:47
[2023-10-31 18:36] LABS: Basophils # (A) 0.1 k/uL (0-0.2); Basophils % (A) 1 %; Eosinophils # (A) 0.2 k/uL (0-0.7); Eosinophils % (A) 3 %; HCT 34.1 % (39.0-53.0); HGB 11.3 gm/dL (13.0-17.5); Lymphocytes # (A) 0.8 k/uL (1.0-4.8); Lymphocytes % (A) 12 %; MCH 29.7 pg (25.0-35.0); MCHC 33.1 g/dL (31.0-37.0); MCV 89.8 fL (80.0-100.0); Mean Platelet Volume 8.7; Monocytes # (A) 0.5 k/uL (0-1.0); Monocytes % (A) 8 %; Neutrophils # (A) 4.7 k/uL (1.3-7.7); Neutrophils % (A) 74 %; Platelet Count 187 k/uL (150-450); WBC 6.3 k/uL (3.8-10.6)
[2023-10-31 18:44] LABS: ALT 14 U/L (4-49); AST 16 U/L (17-59); African American GFR (CKD) 4 (>60 ml/min/1.73 sqM); Albumin 3.4 g/dL (3.5-5.0); Alkaline Phosphatase 56 U/L (38-126); Anion Gap 16 mmol/L; Carbon Dioxide 13 mmol/L (22-30); Chloride 105 mmol/L (98-107); Glucose 105 mg/dL (74-99); Magnesium 2.1 mg/dL (1.6-2.3); Non-African American GFR(CKD) 4 (>60 ml/min/1.73 sqM); Sodium 134 mmol/L (137-145); Total Bilirubin 0.7 mg/dL (0.2-1.3); Total Protein 5.7 g/dL (6.3-8.2)
[2023-10-31] MEDS: SODIUM CHLORIDE 0.9% 1,000 ML IV STA (18:46)
[2023-10-31 18:49] LABS: Blood Urea Nitrogen 114 mg/dL (9-20); Potassium 7.2 mmol/L (3.5-5.1)
[2023-10-31] MEDS ORDERED: NALOXONE 0.4 MG/ML 1 ML VIAL IV PRN (19:40)
[2023-10-31] MEDS: DEXTROSE 50% SYRINGE 50 ML IVP ONE (19:45)
[2023-10-31] MEDS: INSULIN REGULAR 100 UNIT/ML VIAL (IV) IV ONE (19:46)
[2023-10-31] MEDS: SODIUM ZIRCONIUM CYCLOSILICATE 10 GM PACKET PO ONE (19:52)
[2023-10-31] MEDS: SODIUM CHLORIDE 0.9% 1,000 ML IV SCH (19:53)
[2023-10-31] MEDS: CALCIUM GLUCONATE IN NACL 2 GM in SALINE 1 100ML.BAG IVPB ONE (20:31)
--- NOTE | 2023-10-31 20:32 | P.GSCN ---
History of Present Illness History of present illness: 78-year-old gentleman patient came to the emergency room with BUN/creatinine and potassium is high consulted for placement of urgent dialysis catheter. Patient had a dialysis catheter which has been removed in the past patient has history of atrial fibrillation, sleep apnea history of coronary artery disease post stent Chest few crackles at lung bases good entry both lungs. Second sound present Abdomen soft nontender Femorals are 1+ bilateral plan is placement of a dialysis catheter risk" discussed Past Medical History Past Medical History: Atrial Fibrillation, Deep Vein Thrombosis (DVT), GERD/Reflux, Hearing Disorder / Deafness, Hyperlipidemia, Osteoarthritis (OA), Prostate Disorder, Sleep Apnea/CPAP/BIPAP Additional Past Medical History / Comment(s): DVT Last Myocardial Infarction Date:: UNKNOWN History of Any Multi-Drug Resistant Organisms: None Reported Past Surgical History: Heart Catheterization With Stent Additional Past Surgical History / Comment(s): Femoral bypass right and left, removed steel from right lung and retired up diaphram, right above knee amputee Past Anesthesia/Blood Transfusion Reactions: No Reported Reaction Date of Last Stent Placement:: UNKNOWN Past Psychological History: Depression, PTSD Smoking Status: Former smoker Past Alcohol Use History: None Reported - Past Family History Mother Family Medical History: Myocardial Infarction ([place]) Father Family Medical History: Dementia Medications and Allergies Home Medications Medication Instructions Recorded Confirmed Type Cholecalciferol [Vitamin D3 (25 25 mcg PO DAILY 09/02/23 10/31/23 History Mcg = 1000 Iu)] Tamsulosin [Flomax] 0.4 mg PO DAILY 09/02/23 10/31/23 History Calcium Acetate [PhosLo] 667 mg PO BID-W/MEALS tab 09/12/23 10/31/23 Rx Atorvastatin [Lipitor] 10 mg PO HS 09/17/23 10/31/23 History HYDROcodone/APAP 5-325MG [[place] 1 tab PO Q6H PRN 09/17/23 10/31/23 History 5-325] Isosorbide Mononitrate ER [Imdur] 30 mg PO DAILY 09/17/23 10/31/23 History Torsemide [Demadex] 40 mg PO DAILY 09/17/23 10/31/23 History amLODIPine [Norvasc] 10 mg PO DAILY 09/17/23 10/31/23 History hydrALAZINE HCL [Apresoline] 100 mg PO TID 09/17/23 10/31/23 History Darbepoetin Kalin [Aranesp] 40 mcg SQ Q7D each 09/21/23 10/31/23 Rx carvediloL [Coreg*] 12.5 mg PO BID-W/MEALS #0 tab 09/21/23 10/31/23 Rx Apixaban [Eliquis] 5 mg PO BID 10/31/23 10/31/23 History Allergies Allergy/AdvReac Type Severity Reaction Status Date / Time No Known Allergies Allergy Verified 10/31/23 19:55 Surgical - Exam Vital Signs Temp Pulse Resp BP Pulse Ox 97.4 F L 46 L 16 131/81 93 L 10/31/23 17:53 10/31/23 17:53 10/31/23 17:53 10/31/23 17:53 10/31/23 17:53 Results - Labs 10/31/23 18:28 10/31/23 18:28 Abnormal Lab Results - Last 24 Hours (Table) 10/31/23 10/31/23 Range/Units 18:28 18:28 RBC 3.80 L (4.30-5.90) m/uL Hgb 11.3 L (13.0-17.5) gm/dL Hct 34.1 L (39.0-53.0) % Lymphocytes # 0.8 L (1.0-4.8) k/uL Sodium 134 L (137-145) mmol/L Potassium 7.2 H* (3.5-5.1) mmol/L Carbon Dioxide 13 L (22-30) mmol/L BUN 114 H* (9-20) mg/dL Creatinine 12.12 H* (0.66-1.25) mg/dL Glucose 105 H (74-99) mg/dL Calcium 8.0 L (8.4-10.2) mg/dL AST 16 L (17-59) U/L Total Protein 5.7 L (6.3-8.2) g/dL Albumin 3.4 L (3.5-5.0) g/dL Diabetes panel 10/31/23 Range/Units 18:28 Sodium 134 L (137-145) mmol/L Potassium 7.2 H* (3.5-5.1) mmol/L Chloride 105 (98-107) mmol/L Carbon Dioxide 13 L (22-30) mmol/L BUN 114 H* (9-20) mg/dL Creatinine 12.12 H* (0.66-1.25) mg/dL Glucose 105 H (74-99) mg/dL Calcium 8.0 L (8.4-10.2) mg/dL AST 16 L (17-59) U/L ALT 14 (4-49) U/L Alkaline Phosphatase 56 (38-126) U/L Total Protein 5.7 L (6.3-8.2) g/dL Albumin 3.4 L (3.5-5.0) g/dL Calcium panel 10/31/23 Range/Units 18:28 Calcium 8.0 L (8.4-10.2) mg/dL Albumin 3.4 L (3.5-5.0) g/dL Pituitary panel 10/31/23 Range/Units 18:28 Sodium 134 L (137-145) mmol/L Potassium 7.2 H* (3.5-5.1) mmol/L Chloride 105 (98-107) mmol/L Carbon Dioxide 13 L (22-30) mmol/L BUN 114 H* (9-20) mg/dL Creatinine 12.12 H* (0.66-1.25) mg/dL Glucose 105 H (74-99) mg/dL Calcium 8.0 L (8.4-10.2) mg/dL Adrenal panel 10/31/23 Range/Units 18:28 Sodium 134 L (137-145) mmol/L Potassium 7.2 H* (3.5-5.1) mmol/L Chloride 105 (98-107) mmol/L Carbon Dioxide 13 L (22-30) mmol/L BUN 114 H* (9-20) mg/dL Creatinine 12.12 H* (0.66-1.25) mg/dL Glucose 105 H (74-99) mg/dL Calcium 8.0 L (8.4-10.2) mg/dL Total Bilirubin 0.7 (0.2-1.3) mg/dL AST 16 L (17-59) U/L ALT 14 (4-49) U/L Alkaline Phosphatase 56 (38-126) U/L Total Protein 5.7 L (6.3-8.2) g/dL Albumin 3.4 L (3.5-5.0) g/dL
[2023-10-31] MEDS: LIDOCAINE 1% INJ 10MG/ML (20 ML MDV) SQ ONE (20:56)
[2023-10-31] MEDS: fentaNYL (PF) 50 MCG/1 ML VIAL IVP ONE (20:59)
--- NOTE | 2023-10-31 21:18 | P.PCN ---
Description of Procedure: Preop diagnosis is acute chronic renal failure postop the same Procedure this patient was brought to the [facility] right and left side of the neck was prepped and draped in Prestel manner we did the ultrasound right IJ was very small patient had a previous dialysis catheter. Left IJ was decent size patient has a graft in the both groin and lower amputation on the right side decided to move from the left side ultrasound-guided micropuncture introduced to the left IJ micropuncture guide was passed and 4 point dilator advanced out of the guidewire. After that we passed the regular guidewire which was parked into the inferior vena cava dilators were passed under fluoroscopic control then we placed a 20 cm dialysis catheter on the top of the guidewire guidewire was removed flushed with heparin saline hep-locked secured with 3-0 nylon patient taught the procedure well patient will need x-ray of the chest
[2023-10-31] MEDS: SODIUM CHLORIDE 0.9% 250 ML IV ONE (21:20)
[2023-10-31 21:31] LABS: Glucose,Whole Blood 116 mg/dL (70-110)
[2023-10-31] MEDS: hydrALAZINE HCL 50 MG TAB PO SCH (22:23)
[2023-10-31] MEDS: ALBUTEROL NEB (CONC) 2.5 MG/0.5 ML INHALATION ONE (22:24)
[2023-10-31] MEDS: ATORVASTATIN 10 MG TAB PO SCH (22:29)
[2023-10-31] MEDS: DEXTROSE 5% IN WATER 1,000 ML with SODIUM BICARB (1 MEQ/ML) 150 ML IV SCH (22:50)
--- NOTE | 2023-10-31 23:49 | XR ---
EXAMINATION TYPE: XR chest 1V portable DATE OF EXAM: 10/31/2023 COMPARISON: 09/23/2023 INDICATION: Catheter placement TECHNIQUE: Single frontal view of the chest is obtained. FINDINGS: The heart size is normal. The pulmonary vasculature is normal. Previous lung infiltrates are improving. Stable Metallic foreign bodies are over the right chest right upper abdomen. There is placement of a left central venous catheter with the tip in the distal superior vena cava pr oximal right atrium. No pneumothorax is evident. IMPRESSION: 1. Placement of a left central venous catheter with tip in the superior vena cava right atrial juncti on.
--- NOTE | 2023-11-01 01:14 | P.HPIM ---
History of Present Illness H&P Date: 11/01/23 Patient is a 78-year-old male with a PMH of ESRD on hemodialysis, coronary artery disease, diastolic CHF, hypertension, paroxysmal A-fib on Eliquis, PAD status post right AKA, hypertension, and hyperlipidemia who was sent to the emergency room for abnormal laboratory workup. The patient was recently started on hemodialysis temporarily and was subsequently stopped at the beginning of the month as per the patient. He then stopped urinating a few days ago which prompted him to see his PCP who ordered blood work. Laboratory evaluation was grossly abnormal and he was advised to go to the emergency room. He reports that he felt somewhat tired throughout the day today but had no additional comp laints. He denied experiencing chest discomfort, shortness of breath, palpitations, abdominal pain, nausea, vomiting. EKG in the emergency room revealed A-fib at 77 bpm with peaked T waves as review ed by me. Chest x-ray was unremarkable. Laboratory evaluation was remarkable for potassium 7.2, CO2 13, BUN 114, creatinine 12.12, glucose 105, with a WBC count 6.3 and hemoglobin 11.3. ED documentation reviewed and case discussed with ED provider. Review of systems: Pertinent positives and negatives as discussed in HPI, a complete review of systems was performed and all other systems are negative. Physical examination: Vital signs reviewed General: non toxic, no distress, appears at stated age, underweight Derm: no unusual rashes/lesions, warm Head: atraumatic, normocephalic, symmetric Eyes: EOMI, no lid lag, anicteric sclera, pupils equal round reactive to light ENT: Nose and ears atraumatic Neck: No cervical lymphadenopathy, trachea midline, supple, left sided hemodialysis catheter in place Mouth: no lip lesion, mucus membranes moist Cardiovascular: S1S2 reg, no murmur, positive dorsalis pedis pulse bilateral, no edema Lungs: CTA bilateral, no rhonchi, no rales, no accessory muscle use Abdominal: soft, nontender to palpation, no guarding Ext: muscle strength 5 out of 5 in all 4 extremities grossly, no gross muscle atrophy, no contractures, Neuro: CN II-XI grossly intact, no gross focal neuro deficits Psych: Alert, oriented, appropriate affect Assessment: ESRD with severe hyperkalemia Metabolic acidosis, likely due to above Normocytic anemia Chronic conditions: Chronic CHF, hypertension, paroxysmal A-fib, PAD, hyperlipidemia Imaging: EKG in the emergency room revealed A-fib at 77 bpm with peaked T waves as reviewed by me. Chest x-ray was unremarkable Data Review: Laboratory evaluation was remarkable for potassium 7.2, CO2 13, BUN 114, creatinine 12.12, glucose 105, with a WBC count 6.3 and hemoglobin 11.3. Plan: Continue with hemodialysis Nephrology consulted Monitor BMP Cardiac monitoring Resume home medications DVT prophylaxis: Dimitrios The patient is admitted with an anticipated greater than 2 midnight stay for evaluation of hemodialysis CODE STATUS: No Code (patient notes that he has previously expressed his wishes to be a DNR and has filled out paperwork and informed his family members) Discussed with: Patient Anticipated discharge place: Home Past Medical History Past Medical History: Atrial Fibrillation, Deep Vein Thrombosis (DVT), GERD/Reflux, Hearing Disorder / Deafness, Hyperlipidemia, Osteoarthritis (OA), Prostate Disorder, Sleep Apnea/CPAP/BIPAP Additional Past Medical History / Comment(s): DVT Last Myocardial Infarction Date:: UNKNOWN History of Any Multi-Drug Resistant Organisms: None Reported Past Surgical History: Heart Catheterization With Stent Additional Past Surgical History / Comment(s): Femoral bypass right and left, removed steel from right lung and retired up diaphram, right above knee amputee Past Anesthesia/Blood Transfusion Reactions: No Reported Reaction Date of Last Stent Placement:: UNKNOWN Past Psychological History: Depression, PTSD Smoking Status: Former smoker Past Alcohol Use History: None Reported Past Drug Use History: None Reported - Past Family History Mother Family Medical History: Myocardial Infarction ([place]) Father Family Medical History: Dementia Medications and Allergies Home Medications Medication Instructions Recorded Confirmed Type Cholecalciferol [Vitamin D3 (25 25 mcg PO DAILY 09/02/23 10/31/23 History Mcg = 1000 Iu)] Tamsulosin [Flomax] 0.4 mg PO DAILY 09/02/23 10/31/23 History Calcium Acetate [PhosLo] 667 mg PO BID-W/MEALS tab 09/12/23 10/31/23 Rx Atorvastatin [Lipitor] 10 mg PO HS 09/17/23 10/31/23 History HYDROcodone/APAP 5-325MG [[place] 1 tab PO Q6H PRN 09/17/23 10/31/23 History 5-325] Isosorbide Mononitrate ER [Imdur] 30 mg PO DAILY 09/17/23 10/31/23 History Torsemide [Demadex] 40 mg PO DAILY 09/17/23 10/31/23 History amLODIPine [Norvasc] 10 mg PO DAILY 09/17/23 10/31/23 History hydrALAZINE HCL [Apresoline] 100 mg PO TID 09/17/23 10/31/23 History Darbepoetin Kalin [Aranesp] 40 mcg SQ Q7D each 09/21/23 10/31/23 Rx carvediloL [Coreg*] 12.5 mg PO BID-W/MEALS #0 tab 09/21/23 10/31/23 Rx Apixaban [Eliquis] 5 mg PO BID 10/31/23 10/31/23 History Allergies Allergy/AdvReac Type Severity Reaction Status Date / Time No Known Allergies Allergy Verified 10/31/23 19:55 Physical Exam Vitals: Vital Signs Temp Pulse Pulse Resp BP BP Pulse Ox 11/01/23 00:00 101 H 16 127/78 93 L 10/31/23 20:39 101 H 18 133/89 94 L 10/31/23 17:53 97.4 F L 46 L 16 131/81 93 L Intake and Output 10/31/23 10/31/23 11/01/23 14:59 22:59 06:59 Intake Total 150 Balance 150 Intake: IV 150 Other: Weight 62.142 kg Results CBC & Chem 7: 10/31/23 18:28 10/31/23 21:51 Labs: Abnormal Lab Results - Last 24 Hours (Table) 10/31/23 10/31/23 10/31/23 Range/Units 18:28 18:28 21:30 RBC 3.80 L (4.30-5.90) m/uL Hgb 11.3 L (13.0-17.5) gm/dL Hct 34.1 L (39.0-53.0) % Lymphocytes # 0.8 L (1.0-4.8) k/uL Sodium 134 L (137-145) mmol/L Potassium 7.2 H* (3.5-5.1) mmol/L Carbon Dioxide 13 L (22-30) mmol/L BUN 114 H* (9-20) mg/dL Creatinine 12.12 H* (0.66-1.25) mg/dL Glucose 105 H (74-99) mg/dL POC Glucose (mg/dL) 116 H (70-110) mg/dL Calcium 8.0 L (8.4-10.2) mg/dL AST 16 L (17-59) U/L Total Protein 5.7 L (6.3-8.2) g/dL Albumin 3.4 L (3.5-5.0) g/dL 10/31/23 Range/Units 21:51 RBC (4.30-5.90) m/uL Hgb (13.0-17.5) gm/dL Hct (39.0-53.0) % Lymphocytes # (1.0-4.8) k/uL Sodium (137-145) mmol/L Potassium 6.6 H* (3.5-5.1) mmol/L Carbon Dioxide (22-30) mmol/L BUN (9-20) mg/dL Creatinine (0.66-1.25) mg/dL Glucose (74-99) mg/dL POC Glucose (mg/dL) (70-110) mg/dL Calcium (8.4-10.2) mg/dL AST (17-59) U/L Total Protein (6.3-8.2) g/dL Albumin (3.5-5.0) g/dL
[2023-11-01] MEDS: carvediloL 12.5 MG TAB PO SCH (05:59)
[2023-11-01] MEDS: CALCIUM ACETATE 667 MG TAB PO SCH (05:59)
[2023-11-01 06:15] LABS: African American GFR (CKD) 6 (>60 ml/min/1.73 sqM); Anion Gap 9 mmol/L; Blood Urea Nitrogen 75 mg/dL (9-20); Calcium 8.1 mg/dL (8.4-10.2); Carbon Dioxide 22 mmol/L (22-30); Chloride 103 mmol/L (98-107); Glucose 87 mg/dL (74-99); Non-African American GFR(CKD) 5 (>60 ml/min/1.73 sqM); Sodium 134 mmol/L (137-145)
--- NOTE | 2023-11-01 08:45 | IR ---
EXAMINATION TYPE: IR cvc insert non tunneled Intraoperative/procedural fluoroscopic services were pro vided. CLINICAL INDICATION:Male, 78 years old with history of Dialysis, 1.1m/0.9142DAP, 14.5 x 20 Dialysis c atheter lt IJ; , [facility] Total fluoroscopy time is 1.1 min. DAP: 91.42 uGym2 Please see the operative/procedural note for further details.
[2023-11-01 09:15] LABS: Hepatitis B Surface Antigen Nonreactive (Nonreactive)
[2023-11-01] MEDS: CHOLECALCIFEROL 25 MCG (1000 IU) TABLET PO SCH (09:34)
[2023-11-01] MEDS: TORSEMIDE 20 MG TAB PO SCH (09:34)
[2023-11-01] MEDS: TAMSULOSIN 0.4 MG CAP.ER.24H PO SCH (09:34)
[2023-11-01] MEDS: APIXABAN 5 MG TAB PO SCH (09:34)
[2023-11-01] MEDS: ISOSORBIDE MONONITRATE ER 30 MG TAB.ER.24H PO SCH (09:34)
[2023-11-01] MEDS: amLODIPine 10 MG TAB PO SCH (09:35)
[2023-11-01 10:42] LABS: Hepatitis B Surface AB- Quant 3.5 mIU/mL
--- NOTE | 2023-11-01 11:56 | P.NPCON ---
History of Present Illness - Reason for Consult acute renal failure, chronic renal failure - History of Present Illness Reason for consultation: Acute kidney injury on chronic kidney disease History of present illness: Patient is a 78-year-old male seen in renal consultation for acute kidney injury on chronic kidney disease. Patient has chronic kidney disease stage IIIa with baseline creatinine 1.2-1.4 secondary to nephrosclerosis. Patient developed acute renal failure and was started on hemodialysis on September 03, 2023 due to volume overload. Patient's last hemodialysis treatment was October 02, 2023. A week later his creatinine was near 1.5. Patient states he has been voiding. Denies gross hematuria or dysuria. Denies vomiting or diarrhea. Patient is not a very reliable historian and is unsure of the meds he is taking. I do see torsemide as well as potassium supplementation on his home medication list. Patient's potassium level in October 2023 was noted to be low and was started on potassium supplementation at that time. Patient has history of DVT and is maintained on anticoagulation. Denies history of diabetes. Denies chest pain or shortness of breath. Patient came to the hospital yesterday due to abnormal outpatient labs. Creatinine was noted to be 12.1 and potassium level of 7.2. He was also noted to be acidotic with a bicarb level of 13. This was medically treated and he also underwent emergent hemodialysis treatment overnight. Potassium level this morning was 5.0. Vital signs are stable. General: The patient appeared well nourished and normally developed. HEENT: Head exam is unremarkable. On nasal cannula. LUNGS: No audible rhonchi or wheezes. HEART: Rate and Rhythm are regular. ABDOMEN: Nontender. EXTREMITITES: AKA noted. No edema. Past Medical History Past Medical History: Atrial Fibrillation, Deep Vein Thrombosis (DVT), GERD/Reflux, Hearing Disorder / Deafness, Hyperlipidemia, Osteoarthritis (OA), Prostate Disorder, Sleep Apnea/CPAP/BIPAP Additional Past Medical History / Comment(s): DVT Last Myocardial Infarction Date:: UNKNOWN History of Any Multi-Drug Resistant Organisms: None Reported Past Surgical History: Heart Catheterization With Stent Additional Past Surgical History / Comment(s): Femoral bypass right and left, removed steel from right lung and retired up diaphram, right above knee amputee Past Anesthesia/Blood Transfusion Reactions: No Reported Reaction Date of Last Stent Placement:: UNKNOWN Past Psychological History: Depression, PTSD Smoking Status: Former smoker Past Alcohol Use History: None Reported Past Drug Use History: None Reported - Past Family History Mother Family Medical History: Myocardial Infarction ([place]) Father Family Medical History: Dementia Medications and Allergies Home Medications Medication Instructions Recorded Confirmed Type Cholecalciferol [Vitamin D3 (25 25 mcg PO DAILY 09/02/23 10/31/23 History Mcg = 1000 Iu)] Tamsulosin [Flomax] 0.4 mg PO DAILY 09/02/23 10/31/23 History Calcium Acetate [PhosLo] 667 mg PO BID-W/MEALS tab 09/12/23 10/31/23 Rx Atorvastatin [Lipitor] 10 mg PO HS 09/17/23 10/31/23 History HYDROcodone/APAP 5-325MG [[place] 1 tab PO Q6H PRN 09/17/23 10/31/23 History 5-325] Isosorbide Mononitrate ER [Imdur] 30 mg PO DAILY 09/17/23 10/31/23 History Torsemide [Demadex] 40 mg PO DAILY 09/17/23 10/31/23 History amLODIPine [Norvasc] 10 mg PO DAILY 09/17/23 10/31/23 History hydrALAZINE HCL [Apresoline] 100 mg PO TID 09/17/23 10/31/23 History Darbepoetin Kalin [Aranesp] 40 mcg SQ Q7D each 09/21/23 10/31/23 Rx carvediloL [Coreg*] 12.5 mg PO BID-W/MEALS #0 tab 09/21/23 10/31/23 Rx Apixaban [Eliquis] 5 mg PO BID 10/31/23 10/31/23 History Allergies Allergy/AdvReac Type Severity Reaction Status Date / Time No Known Allergies Allergy Verified 10/31/23 19:55 Physical Exam Vitals: Vital Signs Temp Pulse Pulse Resp BP BP Pulse Ox 11/01/23 08:00 97.7 F 84 18 131/98 98 11/01/23 04:00 98.2 F 94 18 134/86 92 L 11/01/23 03:44 97.8 F 104 H 16 147/98 11/01/23 00:00 101 H 16 127/78 93 L 10/31/23 20:39 101 H 18 133/89 94 L 10/31/23 17:53 97.4 F L 46 L 16 131/81 93 L Intake and Output 10/31/23 11/01/23 11/01/23 22:59 06:59 14:59 Intake Total 150 500 Output Total 1000 Balance 150 -500 Intake: IV 150 Hemodialysis 500 Output: Hemodialysis 1000 Other: # Voids 0 Weight 62.142 kg 64.5 kg Results - Lab Results Most recent lab results Calcium 8.1 mg/dL (8.4-10.2) L 11/01/23 05:38 Magnesium 2.1 mg/dL (1.6-2.3) 10/31/23 18:28 10/31/23 18:28 11/01/23 05:38 Assessment and Plan Plan: Assessment: 1. Acute kidney injury secondary to ATN versus progression of underlying chronic kidney disease. Creatinine 12 on admission. Underwent emergent hem odialysis earlier this morning due to hyperkalemia. Bladder scan has been negative. 2. Chronic kidney disease stage IIIa with baseline creatinine 1.2-1.4 secondary to nephrosclerosis. 3. Hyperkalemia secondary to acute kidney injury, acidosis and potassium supplementation. 4. DVT maintained on anticoagulation. 5. Metabolic acidosis secondary to acute kidney injury improved with bicarb drip and dialysis. 6. Chronic diastolic CHF. 7. Hypertension with chronic kidney disease. 8. Chronic kidney disease mineral bone disease maintained on PhosLo. Plan: Plan for hemodialysis tomorrow. Stop Demadex. Check phosphorus level. Stop Aranesp. Check renal ultrasound. Thank you for the consultation. I will continue to follow the patient with you during his hospital stay.
--- NOTE | 2023-11-01 12:48 | US ---
EXAMINATION TYPE: US kidneys/renal and bladder DATE OF EXAM: 11/01/2023 COMPARISON: Multiple, most recent 09/04/2023 CLINICAL INDICATION: Male, 78 years old with history of nakita; Hx renal cysts EXAM MEASUREMENTS: Right Kidney: 12.4 x 6.0 x 6.0 cm Left Kidney: 10.5 x 4.3 x 4.0 cm Post Void Residual Volume: NA mL ? Hematoma redemonstrated. Right Kidney: Simple cyst redemonstrated Left Kidney: Simple cyst redemonstrated; atrophic Bladder: Wall thickening - thickest at posterior inferior bladder = 1.4 cm Bilateral Jets seen: Yes Normal Post Void Residual: NA IMPRESSION: No evidence for obstructive uropathy. Bilateral simple cysts. Thickening of the urinary bladder wall correlate with urinalysis for cystitis.
[2023-11-01 15:06] VITALS: BMI 18.2
--- NOTE | 2023-11-02 10:31 | P.PN ---
Subjective Patient is seen in follow-up for acute kidney injury, hemodialysis dependent. Started on hemodialysis October 31, 2023. Has been voiding but urine output remains low. Denies chest pain or shortness of breath. Vital signs are stable. General: No acute distress. HEENT: Head exam is unremarkable. LUNGS: No audible rhonchi or wheezes. HEART: Rate and Rhythm are regular. ABDOMEN: Nontender. EXTREMITITES: AKA noted. No edema. Objective - Vital Signs Vital signs: Vital Signs Temp 98 F 11/02/23 08:00 Pulse 90 11/02/23 08:00 Resp 16 11/02/23 08:00 BP 129/72 11/02/23 08:00 Pulse Ox 95 11/02/23 08:00 FiO2 Intake & Output 11/01/23 11/02/23 11/02/23 18:59 06:59 18:59 Intake Total 640 240 180 Output Total 125 200 Balance 515 40 180 Weight 64.5 kg Intake: Intake, IV Titration 400 Amount Dextrose 5% in Water 1, 400 000 ml @ 50 mls/hr IV . Q23H TYLOR with Sodium Bicarb (1 Meq/ml) 150 ml Rx#:[id number] Oral 240 240 180 Output: Urine 125 200 Other: # Voids 0 # Bowel Movements 1 1 - Labs CBC & Chem 7: 10/31/23 18:28 11/01/23 15:27 Labs: Abnormal Lab Results - Last 24 Hours (Table) 11/01/23 11/02/23 Range/Units 15:27 07:15 Potassium 5.8 H (3.5-5.1) mmol/L Phosphorus 6.6 H (2.5-4.5) mg/dL Assessment and Plan Plan: Assessment: 1. Acute kidney injury secondary to ATN versus progression of underlying ch ronic kidney disease. Creatinine 12 on admission. Started on hemodialysis October 31, 2023 due to hyperkalemia and severe acute kidney injury. Bladder scan has been negative. No hydronephrosis noted on kidney ultrasound. Serologies negative done August 2023. 2. Chronic kidney disease stage IIIa with baseline creatinine 1.2-1.4 secondary to nephrosclerosis. 3. Hyperkalemia secondary to acute kidney injury, acidosis and potassium supplementation. Improved postdialysis. 4. DVT maintained on anticoagulation. 5. Metabolic acidosis secondary to acute kidney injury improved with bicarb drip and dialysis. 6. Chronic diastolic CHF. 7. Hypertension with chronic kidney disease. Controlled. 8. Chronic kidney disease mineral bone disease maintained on PhosLo. Phosphorus level 6.6 dated November 02, 2023. Plan: Hemodialysis today and again tomorrow. Continue to monitor for renal recovery. Maintain gentle IV hydration. Check BMP now.
[2023-11-02 12:14] LABS: African American GFR (CKD) 5 (>60 ml/min/1.73 sqM); Anion Gap 8 mmol/L; Blood Urea Nitrogen 88 mg/dL (9-20); Calcium 7.6 mg/dL (8.4-10.2); Carbon Dioxide 27 mmol/L (22-30); Chloride 98 mmol/L (98-107); Glucose 96 mg/dL (74-99); Non-African American GFR(CKD) 5 (>60 ml/min/1.73 sqM); Potassium 5.6 mmol/L (3.5-5.1); Sodium 133 mmol/L (137-145)
--- NOTE | 2023-11-02 15:02 | P.PN ---
Subjective Progress Note Date: 11/02/23 No new complaints today. Doing well, plans for dialysis today and tomorrow with possible discharge over the weekend. Gen: In NAD, non-toxic HEENT: normocephalic, atraumatic, hearing acuity is intant, mucous membranes moist CVS: perfusing all extremities well, no pitting edema, Respiratory: symmetric chest expansion, no accessory muscle use, GI: soft, NTTP, ND, : no suprapubic tenderness, no CVA tenderness MSK/Derm: no rashes, cyanosis, left AKA Neuro: CN II-XII intact, no motor weakness, Psych: cooperative, euthymic mood, judgment and insight is intact Hospital course: Patient is a 78-year-old male with a PMH of ESRD on hemodialysis, coronary artery disease, diastolic CHF, hypertension, paroxysmal A-fib on Eliquis, PAD status post left AKA, hypertension, and hyperlipidemia who was sent to the emergency room for abnormal laboratory workup. EKG in the emergency room revealed A-fib at 77 bpm with peaked T waves as reviewed by me. Chest x-ray was unremarkable. Laboratory evaluation was remarkable for potassium 7.2, CO2 13, BUN 114, creatinine 12.12, glucose 105, with a WBC count 6.3 and hemoglobin 11.3. Assessment: ESRD with severe hyperkalemia Metabolic acidosis, likely due to above Normocytic anemia Chronic conditions: Chronic CHF, hypertension, paroxysmal A-fib, PAD, h yperlipidemia Imaging: EKG in the emergency room revealed A-fib at 77 bpm with peaked T waves as re viewed by me. Chest x-ray was unremarkable Data Review: Laboratory evaluation was remarkable for potassium 7.2, CO2 13, BUN 114, creatinine 12.12, glucose 105, with a WBC count 6.3 and hemoglobin 11.3. Plan: Continue with hemodialysis Nephrology consulted Monitor BMP Cardiac monitoring Resume home medications DVT prophylaxis: Eliquis The patient is admitted with an anticipated greater than 2 midnight stay for evaluation of hemodialysis CODE STATUS: No Code (patient notes that he has previously expressed his wishes to be a DNR and has filled out paperwork and informed his family members) Discussed with: Patient Anticipated discharge place: Home Objective - Vital Signs Vital signs: Vital Signs Temp 97.8 F 11/02/23 12:00 Pulse 94 11/02/23 12:00 Resp 16 11/02/23 12:00 BP 123/71 11/02/23 12:00 Pulse Ox 89 L 11/02/23 12:00 FiO2 Intake & Output 11/01/23 11/02/23 11/02/23 18:59 06:59 18:59 Intake Total 640 240 420 Output Total 125 200 Balance 515 40 420 Weight 64.5 kg Intake: Intake, IV Titration 400 Amount Dextrose 5% in Water 1, 400 000 ml @ 50 mls/hr IV . Q23H TYLOR with Sodium Bicarb (1 Meq/ml) 150 ml Rx#:[id number] Oral 240 240 420 Output: Urine 125 200 Other: # Voids 0 # Bowel Movements 1 1 1 - Labs CBC & Chem 7: 10/31/23 18:28 11/02/23 11:15 Labs: Abnormal Lab Results - Last 24 Hours (Table) 11/01/23 11/02/23 11/02/23 Range/Units 15:27 07:15 11:15 Sodium 133 L (137-145) mmol/L Potassium 5.8 H 5.6 H (3.5-5.1) mmol/L BUN 88 H (9-20) mg/dL Creatinine 9.99 H* (0.66-1.25) mg/dL Calcium 7.6 L (8.4-10.2) mg/dL Phosphorus 6.6 H (2.5-4.5) mg/dL
--- NOTE | 2023-11-03 10:58 | P.PN ---
Subjective Patient is seen in follow-up for acute kidney injury, hemodialysis dependent. Started on hemodialysis October 31, 2023. Has been voiding but urine output remains low. Denies chest pain or shortness of breath. Vital signs are stable. General: No acute distress. HEENT: Head exam is unremarkable. LUNGS: No audible rhonchi or wheezes. HEART: Rate and Rhythm are regular. ABDOMEN: Nontender. EXTREMITITES: AKA noted. No edema. Objective - Vital Signs Vital signs: Vital Signs Temp 97.5 F L 11/03/23 08:00 Pulse 85 11/03/23 08:00 Resp 18 11/03/23 08:00 BP 141/79 11/03/23 08:00 Pulse Ox 93 L 11/03/23 08:00 FiO2 Intake & Output 11/02/23 11/03/23 11/03/23 18:59 06:59 18:59 Intake Total 420 740 480 Output Total 1200 Balance 420 -460 480 Intake: Oral 420 240 480 Hemodialysis 500 Output: Urine 200 Hemodialysis 1000 Other: Voiding Method Urinal Urinal # Voids 1 # Bowel Movements 1 - Labs CBC & Chem 7: 10/31/23 18:28 11/02/23 11:15 Labs: Abnormal Lab Results - Last 24 Hours (Table) 11/02/23 Range/Units 11:15 Sodium 133 L (137-145) mmol/L Potassium 5.6 H (3.5-5.1) mmol/L BUN 88 H (9-20) mg/dL Creatinine 9.99 H* (0.66-1.25) mg/dL Calcium 7.6 L (8.4-10.2) mg/dL Assessment and Plan Plan: Assessment: 1. Acute kidney injury secondary to ATN versus progression of underlying chronic kidney disease. Creatinine 12 on admission. Started on hemodialysis October 31, 2023 due to hyperkalemia and severe acute kidney injury. Bladder scan has been negative. No hydronephrosis noted on kidney ultrasound. Serologies negative done August 2023. 2. Chronic kidney disease stage IIIa with baseline creatinine 1.2-1.4 secondary to nephrosclerosis. 3. Hyperkalemia secondary to acute kidney injury, acidosis and potassium supplementation. Improved postdialysis. 4. DVT maintained on anticoagulation. 5. Metabolic acidosis secondary to acute kidney injury improved with bicarb drip and dialysis. 6. Chronic diastolic CHF. 7. Hypertension with chronic kidney disease. Controlled. 8. Chronic kidney disease mineral bone disease maintained on PhosLo. Phosphorus level 6.6 dated November 02, 2023. Plan: Hemodialysis today today. Plan to hold tomorrow. Continue to monitor for renal recovery. Change IV fluids from bicarb drip to normal saline.
[2023-11-03] MEDS: SODIUM CHLORIDE 0.9% 1,000 ML IV SCH (11:06)
--- NOTE | 2023-11-03 12:00 | P.PN ---
Subjective Progress Note Date: 11/03/23 No new complaints today. Doing well, plans for dialysis today. Discussed with nephrology, plan is to do a session today, reassess tomorrow and if still requiring dialysis on sunday, will place permacath and d/c Gen: In NAD, non-toxic HEENT: normocephalic, atraumatic, hearing acuity is intant, mucous membranes moist CVS: perfusing all extremities well, no pitting edema, Respiratory: symmetric chest expansion, no accessory muscle use, GI: soft, NTTP, ND, : no suprapubic tenderness, no CVA tenderness MSK/Derm: no rashes, cyanosis, left AKA Neuro: CN II-XII intact, no motor weakness, Psych: cooperative, euthymic mood, judgment and insight is intact Hospital course: Patient is a 78-year-old male with a PMH of ESRD on hemodialysis, coronary artery disease, diastolic CHF, hypertension, paroxysmal A-fib on Eliquis, PAD status post left AKA, hypertension, and hyperlipidemia who was sent to the emergency room for abnormal laboratory workup. EKG in the emergency room revealed A-fib at 77 bpm with peaked T waves as reviewed by me. Chest x-ray was unremarkable. Laboratory evaluation was remarkable for potassium 7.2, CO2 13, BUN 114, creatinine 12.12, glucose 105, with a WBC count 6.3 and hemoglobin 11.3. Assessment: ESRD with severe hyperkalemia Metabolic acidosis, likely due to above Normocytic anemia Chronic conditions: Chronic CHF, hypertension, paroxysmal A-fib, PAD, hyperl ipidemia Imaging: EKG in the emergency room revealed A-fib at 77 bpm with peaked T waves as reviewed by me. Chest x-ray was unremarkable Data Review: Laboratory evaluation was remarkable for potassium 7.2, CO2 13, BUN 114, creatinine 12.12, glucose 105, with a WBC count 6.3 and hemoglobin 11.3. Plan: Continue with hemodialysis Nephrology consulted Monitor BMP Cardiac monitoring Resume home medications DVT prophylaxis: Eliquis The patient is admitted with an anticipated greater than 2 midnight stay for evaluation of hemodialysis CODE STATUS: No Code (patient notes that he has previously expressed his wishes to be a DNR and has filled out paperwork and informed his family members) Discussed with: Patient Anticipated discharge place: Home Objective - Vital Signs Vital signs: Vital Signs Temp 97.5 F L 05/25/24 08:00 Pulse 85 11/03/23 08:00 Resp 18 11/03/23 08:00 BP 141/79 11/03/23 08:00 Pulse Ox 93 L 11/03/23 08:00 FiO2 Intake & Output 11/02/23 11/03/23 11/03/23 18:59 06:59 18:59 Intake Total 420 740 480 Output Total 1200 Balance 420 -460 480 Intake: Oral 420 240 480 Hemodialysis 500 Output: Urine 200 Hemodialysis 1000 Other: Voiding Method Urinal Urinal # Voids 1 # Bowel Movements 1 - Labs CBC & Chem 7: 10/31/23 18:28 11/02/23 11:15 Labs: Abnormal Lab Results - Last 24 Hours (Table) 11/02/23 Range/Units 11:15 Sodium 133 L (137-145) mmol/L Potassium 5.6 H (3.5-5.1) mmol/L BUN 88 H (9-20) mg/dL Creatinine 9.99 H* (0.66-1.25) mg/dL Calcium 7.6 L (8.4-10.2) mg/dL
[2023-11-04 08:17] LABS: African American GFR (CKD) 18 (>60 ml/min/1.73 sqM); Anion Gap 3 mmol/L; Blood Urea Nitrogen 21 mg/dL (9-20); Calcium 7.4 mg/dL (8.4-10.2); Carbon Dioxide 31 mmol/L (22-30); Chloride 95 mmol/L (98-107); Glucose 97 mg/dL (74-99); Magnesium 1.7 mg/dL (1.6-2.3); Non-African American GFR(CKD) 16 (>60 ml/min/1.73 sqM); Potassium 3.8 mmol/L (3.5-5.1); Sodium 129 mmol/L (137-145)
--- NOTE | 2023-11-04 09:25 | P.PN ---
Subjective Progress Note Date: 11/04/23 No new complaints today, reassess tomorrow and if still requiring dialysis, will place permacath and d/c Gen: In NAD, non-toxic HEENT: normocephalic, atraumatic, hearing acuity is intant, mucous membranes moist CVS: perfusing all extremities well, no pitting edema, Respiratory: symmetric chest expansion, no accessory muscle use, GI: soft, NTTP, ND, : no suprapubic tenderness, no CVA tenderness MSK/Derm: no rashes, cyanosis, left AKA Neuro: CN II-XII intact, no motor weakness, Psych: cooperative, euthymic mood, judgment and insight is intact Hospital course: Patient is a 78-year-old male with a PMH of ESRD on hemodialysis, coronary artery disease, diastolic CHF, hypertension, paroxysmal A-fib on Eliquis, PAD status post left AKA, hypertension, and hyperlipidemia who was sent to the [facility] room for abnormal laboratory workup. EKG in the emergency room revealed A-fib at 77 bpm with peaked T waves as reviewed by me. Chest x-ray was unremarkable. Laboratory evaluation was remarkable for potassium 7.2, CO2 13, BUN 114, creatinine 12.12, glucose 105, with a WBC count 6.3 and hemoglobin 11.3. Assessment: ESRD with severe hyperkalemia Metabolic acidosis, likely due to above Normocytic anemia Chronic conditions: Chronic CHF, hypertension, paroxysmal A-fib, PAD, hyperlipidemia Plan: Continue with hemodialysis Nephrology consulted Monitor BMP Cardiac monitoring Resume home medications DVT prophylaxis: Eliquis The patient is admitted with an anticipated greater than 2 midnight stay for evaluation of hemodialysis CODE STATUS: No Code (patient notes that he has previously expressed his wishes to be a DNR and has filled out paperwork and informed his family members) Discussed with: Patient Anticipated discharge place: Home Objective - Vital Signs Vital signs: Vital Signs Temp 98 F 11/04/23 08:00 Pulse 89 11/04/23 08:00 Resp 16 11/04/23 08:00 BP 142/74 11/04/23 08:00 Pulse Ox 92 L 11/04/23 08:00 FiO2 Intake & Output 11/03/23 11/04/23 11/04/23 18:59 06:59 18:59 Intake Total 2300 Output Total 1440 550 Balance 860 -550 Intake: Oral 1800 Hemodialysis 500 Output: Urine 400 550 Hemodialysis 1040 Other: Voiding Method Urinal Urinal # Voids 1 2 # Bowel Movements 1 - Labs CBC & Chem 7: 10/31/23 18:28 11/04/23 07:20 Labs: Abnormal Lab Results - Last 24 Hours (Table) 11/04/23 Range/Units 07:20 Sodium 129 L (137-145) mmol/L Chloride 95 L (98-107) mmol/L Carbon Dioxide 31 H (22-30) mmol/L BUN 21 H (9-20) mg/dL Creatinine 3.59 H (0.66-1.25) mg/dL Calcium 7.4 L (8.4-10.2) mg/dL
--- NOTE | 2023-11-04 10:19 | P.PN ---
Subjective Patient is seen in follow-up for acute kidney injury, hemodialysis dependent. Started on hemodialysis October 31, 2023. Has been voiding but urine output remains low. Denies chest pain or shortness of breath. Vital signs are stable. General: No acute distress. HEENT: Head exam is unremarkable. LUNGS: No audible rhonchi or wheezes. HEART: Rate and Rhythm are regular. ABDOMEN: Nontender. EXTREMITITES: AKA noted. No edema. Objective - Vital Signs Vital signs: Vital Signs Temp 98 F 11/04/23 08:00 Pulse 89 11/04/23 08:00 Resp 16 11/04/23 08:00 BP 142/74 11/04/23 08:00 Pulse Ox 92 L 11/04/23 08:00 FiO2 Intake & Output 11/03/23 11/04/23 11/04/23 18:59 06:59 18:59 Intake Total 2700 Output Total 1040 550 Balance 1660 -550 Intake: Oral 2200 Hemodialysis 500 Output: Urine 550 Hemodialysis 1040 Other: Voiding Method Urinal Urinal # Voids 1 2 # Bowel Movements 1 - Labs CBC & Chem 7: 10/31/23 18:28 11/04/23 07:20 Labs: Abnormal Lab Results - Last 24 Hours (Table) 11/04/23 Range/Units 07:20 Sodium 129 L (137-145) mmol/L Chloride 95 L (98-107) mmol/L Carbon Dioxide 31 H (22-30) mmol/L BUN 21 H (9-20) mg/dL Creatinine 3.59 H (0.66-1.25) mg/dL Calcium 7.4 L (8.4-10.2) mg/dL Assessment and Plan Plan: Assessment: 1. Acute kidney injury secondary to ATN versus progression of underlying chronic kidney disease. Creatinine 12 on admission. Started on hemodialysis October 31, 2023 due to hyperkalemia and severe acute kidney injury. Bladder scan has been negative. No hydronephrosis noted on kidney ultrasound. Serologies negative done August 2023. 2. Chronic kidney disease stage IIIa with baseline creatinine 1.2-1.4 secondary to nephrosclerosis. 3. Hyperkalemia secondary to acute kidney injury, acidosis and potassium supplementation. Improved postdialysis. 4. DVT maintained on anticoagulation. 5. Metabolic acidosis secondary to acute kidney injury improved with bicarb drip and dialysis. 6. Chronic diastolic CHF. 7. Hypertension with chronic kidney disease. Controlled. 8. Chronic kidney disease mineral bone disease maintained on PhosLo. Phosphorus level 6.6 dated November 02, 2023. Plan: If renal function worse tomorrow, will proceed with hemodialysis. Last dialysis November 03, 2023. Will also need permanent dialysis catheter placed and outpatient dialysis set up by case management. Continue to monitor for renal recovery. Maintain gentle IV hydration.
[2023-11-04] MEDS: HYDROcodone/APAP 5-325MG 1 EACH TAB PO PRN (23:22)
[2023-11-05 09:45] LABS: African American GFR (CKD) 12 (>60 ml/min/1.73 sqM); Anion Gap 3 mmol/L; Blood Urea Nitrogen 33 mg/dL (9-20); Calcium 7.8 mg/dL (8.4-10.2); Carbon Dioxide 30 mmol/L (22-30); Chloride 96 mmol/L (98-107); Glucose 92 mg/dL (74-99); Magnesium 1.7 mg/dL (1.6-2.3); Non-African American GFR(CKD) 11 (>60 ml/min/1.73 sqM); Sodium 129 mmol/L (137-145)
--- NOTE | 2023-11-05 10:26 | P.PN ---
Subjective Patient is seen in follow-up for acute kidney injury, hemodialysis dependent. Started on hemodialysis October 31, 2023. Has been voiding but urine output remains low. Denies chest pain or shortness of breath. Vital signs are stable. General: No acute distress. HEENT: Head exam is unremarkable. LUNGS: No audible rhonchi or wheezes. HEART: Rate and Rhythm are regular. ABDOMEN: Nontender. EXTREMITITES: AKA noted. No edema. Objective - Vital Signs Vital signs: Vital Signs Temp 97.7 F 11/05/23 08:28 Pulse 88 11/05/23 08:28 Resp 18 11/05/23 08:28 BP 123/74 11/05/23 08:28 Pulse Ox 95 11/05/23 08:28 FiO2 Intake & Output 11/04/23 11/05/23 11/05/23 18:59 06:59 18:59 Intake Total 1800 118 Output Total 250 Balance 1800 -250 118 Weight 64.5 kg Intake: Oral 1800 118 Output: Urine 250 Other: Voiding Method Urinal Urinal - Labs CBC & Chem 7: 10/31/23 18:28 11/05/23 08:42 Labs: Abnormal Lab Results - Last 24 Hours (Table) 11/05/23 Range/Units 08:42 Sodium 129 L (137-145) mmol/L Chloride 96 L (98-107) mmol/L BUN 33 H (9-20) mg/dL Creatinine 4.93 H (0.66-1.25) mg/dL Calcium 7.8 L (8.4-10.2) mg/dL Assessment and Plan Plan: Assessment: 1. Acute kidney injury secondary to ATN versus progression of underlying chronic kidney disease. Creatinine 12 on admission. Started on hemodialysis October 31, 2023 due to hyperkalemia and severe acute kidney injury. Bladder scan has been negative. No hydronephrosis noted on kidney ultrasound. Serologies negative done August 2023. 2. Chronic kidney disease stage IIIa with baseline creatinine 1.2-1.4 secondary to nephrosclerosis. 3. Hyperkalemia secondary to acute kidney injury, acidosis and potassium supplementation. Improved postdialysis. 4. DVT maintained on anticoagulation. 5. Metabolic acidosis secondary to acute kidney injury improved with bicarb drip and dialysis. 6. Chronic diastolic CHF. 7. Hypertension with chronic kidney disease. Controlled. 8. Chronic kidney disease mineral bone disease maintained on PhosLo. Phosphorus level 6.6 dated November 02, 2023. Plan: Plan for hemodialysis today. Creatinine 4.93 today. He will be maintained on Sunday schedule outpatient. Needs permanent dialysis catheter placed and temporary catheter removed prior to discharge. Continue to monitor for renal recovery outpatient. Maintain gentle IV hydration. Case discussed with primary team.
--- NOTE | 2023-11-05 14:03 | P.PN ---
Subjective Progress Note Date: 11/05/23 No new complaints today, needs permacath placement prior to discharge. Vascular sx consulted - they plan to place it on 11/05 PM - holding eliquis in anticipation. Pt may be discharged after this. Gen: In NAD, non-toxic HEENT: normocephalic, atraumatic, hearing acuity is intant, mucous membranes moist CVS: perfusing all extremities well, no pitting edema, Respiratory: symmetric chest expansion, no accessory muscle use, GI: soft, NTTP, ND, : no suprapubic tenderness, no CVA tenderness MSK/Derm: no rashes, cyanosis, left AKA Neuro: CN II-XII intact, no motor weakness, Psych: cooperative, euthymic mood, judgment and insight is intact Hospital course: Patient is a 78-year-old male with a PMH of ESRD on hemodialysis, coronary artery disease, diastolic CHF, hypertension, paroxysmal A-fib on Eliquis, PAD status post left AKA, hypertension, and hyperlipidemia who was sent to the emergency room for abnormal laboratory workup. EKG in the emergency room revealed A-fib at 77 bpm with peaked T waves as reviewed by me. Chest x-ray was unremarkable. Laboratory evaluation was remarkable for potassium 7.2, CO2 13, BUN 114, creatinine 12.12, glucose 105, with a WBC count 6.3 and hemoglobin 1 1.3. Assessment: ESRD with severe hyperkalemia Metabolic acidosis, likely due to above Normocytic anemia Chronic conditions: Chronic CHF, hypertension, paroxysmal A-fib, PAD, hyperlipidemia Plan: Continue with hemodialysis Nephrology consulted Monitor BMP Cardiac monitoring Resume home medications DVT prophylaxis: Eliquis The patient is admitted with an anticipated greater than 2 midnight stay for evaluation of hemodialysis CODE STATUS: No Code (patient notes that he has previously expressed his wishes to be a DNR and has filled out paperwork and informed his family members) Discussed with: Patient Anticipated discharge place: Home Objective - Vital Signs Vital signs: Vital Signs Temp 98.0 F 11/05/23 12:10 Pulse 83 11/05/23 12:10 Resp 18 11/05/23 12:10 BP 132/80 11/05/23 12:10 Pulse Ox 96 11/05/23 12:10 FiO2 Intake & Output 05/26/24 05/27/24 05/27/24 18:59 06:59 18:59 Intake Total 1800 236 Output Total 250 Balance 1800 -250 236 Weight 64.5 kg Intake: Oral 1800 236 Output: Urine 250 Other: Voiding Method Urinal Urinal Urinal # Voids 2 - Labs CBC & Chem 7: 10/31/23 18:28 11/05/23 08:42 Labs: Abnormal Lab Results - Last 24 Hours (Table) 11/05/23 Range/Units 08:42 Sodium 129 L (137-145) mmol/L Chloride 96 L (98-107) mmol/L BUN 33 H (9-20) mg/dL Creatinine 4.93 H (0.66-1.25) mg/dL Calcium 7.8 L (8.4-10.2) mg/dL
[2023-11-06 08:48] LABS: Basophils # (A) 0.1 k/uL (0-0.2); Basophils % (A) 1 %; Eosinophils # (A) 0.2 k/uL (0-0.7); Eosinophils % (A) 4 %; HCT 31.9 % (39.0-53.0); HGB 10.3 gm/dL (13.0-17.5); Lymphocytes # (A) 0.7 k/uL (1.0-4.8); Lymphocytes % (A) 15 %; MCH 28.9 pg (25.0-35.0); MCHC 32.3 g/dL (31.0-37.0); MCV 89.6 fL (80.0-100.0); Mean Platelet Volume 8.4; Monocytes # (A) 0.4 k/uL (0-1.0); Monocytes % (A) 9 %; Neutrophils # (A) 3.4 k/uL (1.3-7.7); Neutrophils % (A) 70 %; Platelet Count 138 k/uL (150-450); RBC 3.56 m/uL (4.30-5.90); RDW 14.4 % (11.5-15.5); WBC 4.9 k/uL (3.8-10.6)
[2023-11-06 08:56] LABS: African American GFR (CKD) 24 (>60 ml/min/1.73 sqM); Anion Gap 3 mmol/L; Blood Urea Nitrogen 18 mg/dL (9-20); Calcium 8.1 mg/dL (8.4-10.2); Carbon Dioxide 28 mmol/L (22-30); Chloride 104 mmol/L (98-107); Glucose 84 mg/dL (74-99); Magnesium 1.7 mg/dL (1.6-2.3); Non-African American GFR(CKD) 21 (>60 ml/min/1.73 sqM); Potassium 3.4 mmol/L (3.5-5.1); Sodium 135 mmol/L (137-145)
--- NOTE | 2023-11-06 11:44 | P.PN ---
Subjective patient is seen for follow-up for acute kidney injury. He is currently hemodialysis dependent. Restarted hemodialysis on 10/31/2023. No significant complaints today. Patient is maintained on Sunday schedule. Objective - Vital Signs Vital signs: Vital Signs Temp 98.1 F 11/06/23 08:00 Pulse 94 11/06/23 08:00 Resp 18 11/06/23 08:00 BP 134/76 11/06/23 08:00 Pulse Ox 96 11/06/23 08:00 FiO2 Intake & Output 11/05/23 11/06/23 11/06/23 18:59 06:59 18:59 Intake Total 236 500 0 Output Total 200 2650 1000 Balance 36 -2150 -1000 Intake: Oral 236 0 Hemodialysis 500 Output: Urine 200 2150 1000 Hemodialysis 500 Other: Voiding Method Urinal Urinal Urinal # Voids 2 - Exam patient is awake, comfortable, no acute distress Examination of the heart S1 and S2 Examination of the lungs bilateral breath sounds are heard Abdomen is soft nontender Examination of lower extremities shows no significant edema. Right AKA - Labs CBC & Chem 7: 11/06/23 07:24 11/06/23 07:24 Labs: Abnormal Lab Results - Last 24 Hours (Table) 11/06/23 11/06/23 Range/Units 07:24 07:24 RBC 3.56 L (4.30-5.90) m/uL Hgb 10.3 L (13.0-17.5) gm/dL Hct 31.9 L (39.0-53.0) % Plt Count 138 L (150-450) k/uL Lymphocytes # 0.7 L (1.0-4.8) k/uL Sodium 135 L (137-145) mmol/L Potassium 3.4 L (3.5-5.1) mmol/L Creatinine 2.85 H (0.66-1.25) mg/dL Calcium 8.1 L (8.4-10.2) mg/dL Assessment and Plan Assessment: 1. Acute kidney injury secondary to ATN versus progression of underlying chronic kidney disease. Creatinine 12 on admission. Started on hemodialysis October 31, 2023 due to hyperkalemia and severe acute kidney injury. Bladder scan has been negative. No hydronephrosis noted on kidney ultrasound. Serologies negative done August 2023. 2. Chronic kidney disease stage IIIa with baseline creatinine 1.2-1.4 secondary to nephrosclerosis. 3. Hyperkalemia secondary to acute kidney injury, acidosis and potassium supplementation. Improved postdialysis. 4. DVT maintained on anticoagulation. 5. Metabolic acidosis secondary to acute kidney injury improved with bicarb drip and dialysis. 6. Chronic diastolic CHF. 7. Hypertension with chronic kidney disease. Controlled. 8. Chronic kidney disease mineral bone disease maintained on PhosLo. Phosphorus level 6.6 dated November 02, 2023. Plan: maintain hemodialysis on Sunday schedule. Needs permacath
--- NOTE | 2023-11-06 14:06 | P.PN ---
Subjective Progress Note Date: 11/06/23 Hospital course Patient is a 78-year-old male with a PMH of ESRD on hemodialysis, coronary artery disease, diastolic CHF, hypertension, paroxysmal A-fib on Eliquis, PAD status post left AKA, hypertension, and hyperlipidemia who was sent to the emergency room for abnormal laboratory workup. Patient was started on dialysis on September 03, 2023. His renal function was improved so his dialysis was discontinued on October 02, 2023. EKG in the emergency room revealed A-fib at 77 bpm with peaked T waves as reviewed by me. Chest x-ray was unremarkable. Laboratory evaluation was remarkable for potassium 7.2, CO2 13, BUN 114, creatinine 12.12, glucose 105, with a WBC count 6.3 and hemoglobin 11.3. During this admission patient was restarted on dialysis. Patient was seen today. He denies any acute complaints. He had no questions for me. 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 Vascular surgery consulted Holding [facility] for permacath placement Normocytic anemia Stable Chronic conditions Chronic CHF with unknown EF Hypertension Paroxysmal atrial fibrillation Peripheral arterial disease Hyperlipidemia -Resume home meds as appropriate Objective - Vital Signs Vital signs: Vital Signs Temp 98.1 F 11/06/23 08:00 Pulse 99 11/06/23 12:00 Resp 18 11/06/23 08:00 BP 128/66 11/06/23 12:00 Pulse Ox 95 11/06/23 12:00 FiO2 Intake & Output 11/05/23 11/06/23 11/06/23 18:59 06:59 18:59 Intake Total 236 500 118 Output Total 200 2650 1350 Balance 36 -2150 -1232 Intake: Oral 236 118 Hemodialysis 500 Output: Urine 200 2150 1350 Hemodialysis 500 Other: Voiding Method Urinal Urinal Urinal # Voids 2 - Labs CBC & Chem 7: 11/06/23 07:24 11/06/23 07:24 Labs: Abnormal Lab Results - Last 24 Hours (Table) 11/06/23 11/06/23 Range/Units 07:24 07:24 RBC 3.56 L (4.30-5.90) m/uL Hgb 10.3 L (13.0-17.5) gm/dL Hct 31.9 L (39.0-53.0) % Plt Count 138 L (150-450) k/uL Lymphocytes # 0.7 L (1.0-4.8) k/uL Sodium 135 L (137-145) mmol/L Potassium 3.4 L (3.5-5.1) mmol/L Creatinine 2.85 H (0.66-1.25) mg/dL Calcium 8.1 L (8.4-10.2) mg/dL
[2023-11-06] MEDS: APIXABAN 5 MG TAB PO SCH (18:41)
[2023-11-07] MEDS ORDERED: LIDOCAINE 1% INJ 10MG/ML (20 ML MDV) ONE ×2 (07:16→07:40)
[2023-11-07] MEDS: IV FLUID CONTINUATION 1,000 ML IV ONE (07:25)
[2023-11-07] MEDS: LIDOCAINE 1% INJ 10MG/ML (20 ML MDV) SQ ONE ×2 (07:37→07:43)
[2023-11-07] MEDS ORDERED: fentaNYL (PF) 50 MCG/ML 2 ML AMP ONE (07:45)
[2023-11-07] MEDS: fentaNYL (PF) 50 MCG/ML 2 ML AMP IVP ONE (07:48)
[2023-11-07] MEDS ORDERED: HEPARIN SODIUM 1,000 UN/ML (10ML VL) ONE (07:57)
--- NOTE | 2023-11-07 08:12 | IR ---
EXAMINATION TYPE: IR cvc insert central tunneled DATE OF EXAM: 11/07/2023 COMPARISON: NONE HISTORY: Fluoroscopy time. Fluoroscopy was provided to the referring clinician.
[2023-11-07] MEDS ORDERED: DARBEPOETIN ALFA 40 MCG/0.4 ML SYRINGE SQ SCH (09:00)
--- NOTE | 2023-11-07 12:11 | P.DS ---
Providers Date of admission: 10/31/23 19:43 Attending physician: Christophe Siegel MD Consults: 10/31/23 19:18 Consult Physician Routine Consulting Provider: Kunal Avelar Consult Reason/Comments: Hyperkalemia Do you want consulting provider notified?: Yes 10/31/23 19:39 Consult Physician Routine Consulting Provider: Westley Jean Consult Reason/Comments: HD cath Do you want consulting provider notified?: Yes 11/05/23 09:43 Consult Physician Routine Consulting Provider: Westley Jean Consult Reason/Comments: permacath Do you want consulting provider notified?: Yes Primary care physician: [facility] Hospital Course: Discharge diagnosis End-stage renal disease and severe hyperkalemia Metabolic acidosis secondary to the above Normocytic anemia: Stable Chronic CHF with unknown EF Hypertension Paroxysmal atrial fibrillation Peripheral arterial disease Hyperlipidemia -Resume home Hospital course Patient is a 78-year-old male with a PMH of ESRD on hemodialysis, coronary artery disease, diastolic CHF, hypertension, paroxysmal A-fib on Eliquis, PAD status post left AKA, hypertension, history of DVT and hyperlipidemia who was sent to the emergency room for abnormal laboratory workup. Laboratory evaluation was remarkable for potassium 7.2, CO2 13, BUN 114, creatinine 12.12, glucose 105, with a WBC count 6.3 and hemoglobin 11.3. during this admission patient was started on hemodialysis. Initially a temporary dialysis catheter was placed. Patient tolerated dialysis well. At the day of discharge he had a permacath placed. Patient's metabolic acidosis and hyperkalemia had resolved. He was then deemed stable for discharge. hims manager arrange for outpatient hemodialysis. Patient will be a Sunday hemodialysis patient. 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 Patient Condition at Discharge: Fair Plan - Discharge Summary New Discharge Prescriptions: Continue Tamsulosin [Flomax] 0.4 mg PO DAILY Cholecalciferol [Vitamin D3 (25 Mcg = 1000 Iu)] 25 mcg PO DAILY HYDROcodone/APAP 5-325MG [[place] 5-325] 1 tab PO Q6H PRN PRN Reason: Pain amLODIPine [Norvasc] 10 mg PO DAILY Darbepoetin Kalin [Aranesp] 40 mcg SQ Q7D each Calcium Acetate [PhosLo] 667 mg PO BID-W/MEALS tab hydrALAZINE HCL [Apresoline] 100 mg PO TID Atorvastatin [Lipitor] 10 mg PO HS Isosorbide Mononitrate ER [Imdur] 30 mg PO DAILY carvediloL [Coreg*] 12.5 mg PO BID-W/MEALS #0 tab Apixaban [Eliquis] 5 mg PO BID Discontinued Torsemide [Demadex] 40 mg PO DAILY Discharge Medication List Cholecalciferol [Vitamin D3 (25 Mcg = 1000 Iu)] 25 mcg PO DAILY 09/02/23 [History] Tamsulosin [Flomax] 0.4 mg PO DAILY 09/02/23 [History] Calcium Acetate [PhosLo] 667 mg PO BID-W/MEALS tab 09/12/23 [Rx] Atorvastatin [Lipitor] 10 mg PO HS 09/17/23 [History] HYDROcodone/APAP 5-325MG [[place] 5-325] 1 tab PO Q6H PRN 09/17/23 [History] Isosorbide Mononitrate ER [Imdur] 30 mg PO DAILY 09/17/23 [History] amLODIPine [Norvasc] 10 mg PO DAILY 09/17/23 [History] hydrALAZINE HCL [Apresoline] 100 mg PO TID 09/17/23 [History] Darbepoetin Kalin [Aranesp] 40 mcg SQ Q7D each 09/21/23 [Rx] carvediloL [Coreg*] 12.5 mg PO BID-W/MEALS #0 tab 09/21/23 [Rx] Apixaban [Eliquis] 5 mg PO BID 10/31/23 [History] Follow up Appointment(s)/Referral(s): None,Stated [REFERRING] - 1-2 days [facility] [NON-STAFF] - 1-2 Days (will call to set up appointment any questions please call agency. ) Activity/Diet/Wound Care/Special Instructions: Hemodialysis scheduled for Sunday, , Sunday @0630 first date of outpatient dialysis will be 11/08/23 - arrive at 0615 Discharge Disposition: HOME SELF-CARE
--- NOTE | 2023-11-07 14:00 | OP ---
OPERATIVE REPORT DATE OF SERVICE : PREOPERATIVE DIAGNOSIS: Acute chronic renal failure. POSTOPERATIVE DIAGNOSIS: Acute chronic renal failure. PROCEDURE: A 23 cm dialysis catheter, left jugular approach. DESCRIPTION OF PROCEDURE: This patient had a temporary dialysis catheter placed in the past. Left side of the chest and neck was prepped and draped for vaginal manner. The patient has an IV antibiotic, Kefzol 1 2 g IV piggyback, 1% lidocaine infiltrated in the neck and chest area. There were some stitches which were removed. A small incision was made on the anterior side of the catheter. Guidewire was passed under fluoroscopic control. Guidewire was advanced up to the inferior vena cava. Then tunnel was created. Through the tunnel, we brought 23 cm dialysis catheter. Sheath was advanced on the top of the guidewire. Guidewire was removed through the sheath. We introduced dialysis catheter. Tip of the catheter in superior vena cavoatrial junction, flushed with heparin saline and hep-locked, secured with 3-0 nylon. The patient tolerated the procedure well and transferred to the room in satisfactory condition. MMODL / IJN: [id number] /
[2023-11-07 16:14] VITALS: BP 126/72; PULSE 83; RESP 18; TEMP 97.5
--- NOTE | 2023-11-07 22:50 | P.PN ---
Subjective patient is seen for follow-up for acute kidney injury. He is currently hemodialysis dependent. Restarted hemodialysis on 10/31/2023. No significant complaints today. Patient is seen on hemodialysis. Tolerating treatment well. Objective - Vital Signs Vital signs: Vital Signs Temp 97.5 F L 11/07/23 16:00 Pulse 83 11/07/23 16:00 Resp 18 11/07/23 16:00 BP 126/72 11/07/23 16:00 Pulse Ox 95 11/07/23 11:37 FiO2 Intake & Output 11/07/23 11/07/23 11/08/23 06:59 18:59 06:59 Intake Total 1018 Output Total 750 1790 Balance -750 -772 Intake: IV 150 Oral 118 Hemodialysis 750 Output: Urine 750 750 Hemodialysis 1040 Other: Voiding Method Urinal Urinal # Voids 2 - Exam patient is awake, comfortable, no acute distress Examination of the heart S1 and S2 Examination of the lungs bilateral breath sounds are heard Abdomen is soft nontender Examination of lower extremities shows no significant edema. Right AKA - Labs CBC & Chem 7: 11/06/23 07:24 11/06/23 07:24 Assessment and Plan Assessment: 1. Acute kidney injury secondary to ATN versus progression of underlying chronic kidney disease. Creatinine 12 on admission. Started on hemodialysis October 31, 2023 due to hyperkalemia and severe acute kidney injury. Bladder scan has been negative. No hydronephrosis noted on kidney ultrasound. Serologies negative done August 2023. 2. Chronic kidney disease stage IIIa with baseline creatinine 1.2-1.4 secondary to nephrosclerosis. 3. Hyperkalemia secondary to acute kidney injury, acidosis and potassium supplementation. Improved postdialysis. 4. DVT maintained on anticoagulation. 5. Metabolic acidosis secondary to acute kidney injury improved with bicarb dri p and dialysis. 6. Chronic diastolic CHF. 7. Hypertension with chronic kidney disease. Controlled. 8. Chronic kidney disease mineral bone disease maintained on PhosLo. Phosphorus level 6.6 dated November 02, 2023. Plan: Continue with hemodialysis post discharge.
== END 2023-11-07 16:46 | disposition home or self-care (01) | DRG 291 ==
LOC: EC 17:16 → 3SCARD 19:43 → 2SICU 21:19 → 3SCARD 11-01 12:59
PROVIDERS: ADMIT Internal Medicine; ATTEND Internal Medicine
PROC: 06H033Z Insertion of Infusion Device into Inferior Vena Cava, Percutaneous Approach (ICD-10-PCS; 2023-10-31)
PROC: B549ZZA Ultrasonography of Inferior Vena Cava, Guidance (ICD-10-PCS; 2023-10-31)
PROC: B5191ZA Fluoroscopy of Inferior Vena Cava using Low Osmolar Contrast, Guidance (ICD-10-PCS; 2023-10-31)
PROC: 5A1D70Z Performance of Urinary Filtration, Intermittent, Less than 6 Hours Per Day (ICD-10-PCS; principal; 2023-10-31 20:19)
PROC: 02HV33Z Insertion of Infusion Device into Superior Vena Cava, Percutaneous Approach (ICD-10-PCS; 2023-11-07)
PROC: B5181ZA Fluoroscopy of Superior Vena Cava using Low Osmolar Contrast, Guidance (ICD-10-PCS; 2023-11-07)
PROC: B548ZZA Ultrasonography of Superior Vena Cava, Guidance (ICD-10-PCS; 2023-11-07)
PROC: 0JH63WZ Insertion of Totally Implantable Vascular Access Device into Chest Subcutaneous Tissue and Fascia, Percutaneous Approach (ICD-10-PCS; 2023-11-07 09:00)
PROC: 02HV33Z Insertion of Infusion Device into Superior Vena Cava, Percutaneous Approach (ICD-10-PCS; 2023-11-07 09:00)
DX: I13.2 Hypertensive heart and chronic kidney disease with heart failure and with stage 5 chronic kidney disease, or end stage renal disease (principal); N17.0 Acute kidney failure with tubular necrosis; N18.6 End stage renal disease; E87.20 Acidosis, unspecified; D64.9 Anemia, unspecified; I50.32 Chronic diastolic (congestive) heart failure; E87.5 Hyperkalemia; I48.0 Paroxysmal atrial fibrillation; Z89.612 Acquired absence of left leg above knee; Z79.01 Long term (current) use of anticoagulants; E11.22 Type 2 diabetes mellitus with diabetic chronic kidney disease; E11.51 Type 2 diabetes mellitus with diabetic peripheral angiopathy without gangrene; T50.3X5A Adverse effect of electrolytic, caloric and water-balance agents, initial encounter; E78.5 Hyperlipidemia, unspecified; F32.A Depression, unspecified; F43.10 Post-traumatic stress disorder, unspecified; H91.90 Unspecified hearing loss, unspecified ear; I25.10 Atherosclerotic heart disease of native coronary artery without angina pectoris; M89.8X9 Other specified disorders of bone, unspecified site; Z82.49 Family history of ischemic heart disease and other diseases of the circulatory system; Z79.899 Other long term (current) drug therapy; Z86.718 Personal history of other venous thrombosis and embolism; Z89.611 Acquired absence of right leg above knee; Z95.5 Presence of coronary angioplasty implant and graft; Z99.2 Dependence on renal dialysis; X58.XXXA Exposure to other specified factors, initial encounter; Z66 Do not resuscitate
CPT/HCPCS: 36415; 36556; 36558; 71045; 76770; 76937; 77001; 80048; 80053; 83735; 84100; 84132; 85025; 86706; 87340; 90935; 93005; 96374; 96375; 99285

== ENCOUNTER → 2023-12-04 | Outpatient (CLI) | payer MEDICARE, BC ==
--- NOTE | 2023-12-04 14:26 | US ---
EXAMINATION TYPE: US venous doppler duplex UE RT DATE OF EXAM: 12/04/2023 COMPARISON: US 09/19/2023 CLINICAL INDICATION: Male, 78 years old with history of I80.10 DVT; Hx right IJV DVT. Patient is on b lood thinners. SIDE PERFORMED: Right Arm Technique grayscale and color Doppler imaging of the approximate vasculature. Right Arm: There still appears to be internal echoes within the right IJV. IJV does not compress com pletely. Color defect seen. Lack of color flow seen in lower IJV. No evidence of DVT in remaining vei ns imaged. IMPRESSION: The right internal jugular vein does not completely compress suggesting remnant thrombus. No other ev idence for DVT.
--- NOTE | 2023-12-04 14:31 | US ---
EXAMINATION TYPE: US venous doppler duplex LE DATE OF EXAM: 12/04/2023 1:55 PM COMPARISON: US 09/17/2023 CLINICAL INDICATION: Male, 78 years old with history of I80.10 DVT; Hx DVT. *Patient is on blood thi nners. Patient is a right below knee amputee. SIDE PERFORMED: Bilateral TECHNIQUE: The lower extremity deep venous system is examined utilizing real time linear array sonog elias with graded compression, doppler sonography and color-flow sonography. VESSELS IMAGED: Common Femoral Vein Deep Femoral Vein Greater Saphenous Vein * Femoral Vein Popliteal Vein Small Saphenous Vein * Proximal Calf Veins (* superficial vessels) Right Leg: Thick richmond, appearance of non-occlusive chronic DVT. Color defect seen within veins imag ed. Veins do not appear to compress fully. Unable to visualize right GSV. Right below knee amputee. Left Leg: Appearance of non-occlusive chronic DVT in left DFV. Remaining veins appear to compress an d show color flow. Exam is very limited due to limited arterial surgical history. Bilateral groin arterial findings as seen on prior with focal outpouching measuring up to 3.5 cm on t he left and on the right with outpouching with suspected mural thrombus. There appear to be great amount of plaque within arteries bilaterally. Difficult to show color flow w ithin right leg arteries. IMPRESSION: 1. Right Chronic Nonocclusive DVT common femoral vein, femoral vein. Below-knee amputation noted. 2. Left Chronic nonocclusive DVT involving the deep femoral vein. 3. 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
== END | disposition home or self-care (01) ==
LOC: RADUSWWP 12:29
PROVIDERS: ATTEND Internal Medicine Hematology & Oncology
DX: I80.10 Phlebitis and thrombophlebitis of unspecified femoral vein (principal); N18.9 Chronic kidney disease, unspecified; J44.9 Chronic obstructive pulmonary disease, unspecified; Z86.718 Personal history of other venous thrombosis and embolism
CPT/HCPCS: 93970

== ENCOUNTER 2024-03-06 19:13 | Inpatient (IN) | payer MEDICARE, BC ==
--- NOTE | 2024-03-06 19:21 | ED ---
SOB HPI - General Stated Complaint: STANLEY Time Seen by Provider: 03/06/24 19:20 Source: old records reviewed Mode of arrival: EMS Limitations: altered mental status - History of Present Illness Initial Comments: This is a 78-year-old male to ER for evaluation of severe COPD. Does have severe COPD exacerbation here in the emergency department with A-fib with RVR severely elevated heart rate and chest pain MD Complaint: shortness of breath, cough, "asthma attack", anxiety -: hour(s) Severity: severe Severity scale (1-10): 10 Consistency: constant Improves With: nothing Known History Of: COPD, asthma, congestive heart failure Context: anxiety, recent illness Associated Symptoms: chest pain, cough, sputum production Treatments Prior to Arrival: none - Related Data Home Medications Medication Instructions Recorded Confirmed Cholecalciferol [Vitamin D3 (25 25 mcg PO DAILY 09/02/23 03/06/24 Mcg = 1000 Iu)] Tamsulosin [Flomax] 0.4 mg PO DAILY 09/02/23 03/06/24 Isosorbide Mononitrate ER [Imdur] 30 mg PO DAILY 09/17/23 03/06/24 amLODIPine [Norvasc] 10 mg PO DAILY 09/17/23 03/06/24 hydrALAZINE HCL [Apresoline] 100 mg PO TID 09/17/23 03/06/24 Apixaban [Eliquis] 5 mg PO BID 10/31/23 03/06/24 Atorvastatin [Lipitor] 10 mg PO HS 03/06/24 03/06/24 Sennosides [Senokot] 17.2 mg PO HS 03/06/24 03/06/24 Torsemide [Demadex] 40 mg PO DAILY 03/06/24 03/06/24 Previous Rx's Medication Instructions Recorded Calcium Acetate [PhosLo] 667 mg PO BID-W/MEALS tab 09/12/23 carvediloL [Coreg*] 12.5 mg PO BID-W/MEALS #0 tab 09/21/23 Allergies Allergy/AdvReac Type Severity Reaction Status Date / Time No Known Allergies Allergy Verified 03/06/24 20:24 Review of Systems ROS Statement: Those systems with pertinent positive or pertinent negative responses have been documented in the HPI. ROS Other: All systems not noted in ROS Statement are negative. Past Medical History Past Medical History: Atrial Fibrillation, Deep Vein Thrombosis (DVT), GERD/Reflux, Hearing Disorder / Deafness, Hyperlipidemia, Osteoarthritis (OA), Prostate Disorder, Sleep Apnea/CPAP/BIPAP Additional Past Medical History / Comment(s): DVT Last Myocardial Infarction Date:: UNKNOWN History of Any Multi-Drug Resistant Organisms: None Reported Past Surgical History: Heart Catheterization With Stent Additional Past Surgical History / Comment(s): Femoral bypass right and left, removed steel from right lung and retired up diaphram, right above knee amputee Past Anesthesia/Blood Transfusion Reactions: No Reported Reaction Date of Last Stent Placement:: UNKNOWN Past Psychological History: Depression, PTSD Smoking Status: Former smoker Past Alcohol Use History: None Reported Past Drug Use History: None Reported - Past Family History Mother Family Medical History: Myocardial Infarction ([place]) Father Family Medical History: Dementia General Exam Limitations: altered mental status General appearance: anxious, in distress, cachectic Head exam: Present: atraumatic, normocephalic, normal inspection Eye exam: Present: normal appearance, PERRL, EOMI. Absent: scleral icterus, conjunctival injection, periorbital swelling ENT exam: Present: normal exam, mucous membranes moist Neck exam: Present: normal inspection. Absent: tenderness, meningismus, lymphadenopathy Respiratory exam: Present: normal lung sounds bilaterally, respiratory distress, wheezes, rhonchi, decreased breath sounds, prolonged expiratory. Absent: rales, stridor Cardiovascular Exam: Present: tachycardia, irregular rhythm, normal heart sounds. Absent: systolic murmur, diastolic murmur, rubs, gallop, clicks GI/Abdominal exam: Present: soft, normal bowel sounds. Absent: distended, tenderness, guarding, rebound, rigid Extremities exam: Present: normal inspection, full ROM, normal capillary refill. Absent: tenderness, pedal edema, joint swelling, calf tenderness Back exam: Present: normal inspection Neurological exam: Present: alert, oriented X3, CN II-XII intact Psychiatric exam: Present: normal affect, normal mood Skin exam: Present: warm, dry, intact, normal color. Absent: rash Course Vital Signs 03/06/24 03/06/24 03/06/24 19:15 19:30 19:45 Temperature 97.0 F L Pulse Rate 137 H 138 H 103 H Respiratory 21 24 20 Rate Blood Pressure 133/116 131/93 135/81 O2 Sat by Pulse 83 L 84 L 87 L Oximetry 03/06/24 03/06/24 03/06/24 19:48 20:17 20:27 Temperature Pulse Rate 104 H 100 Respiratory 20 Rate Blood Pressure O2 Sat by Pulse Oximetry 03/06/24 03/06/24 03/07/24 21:03 22:21 00:00 Temperature Pulse Rate 98 97 63 Respiratory 16 20 14 Rate Blood Pressure 143/85 146/84 126/83 O2 Sat by Pulse 97 98 93 L Oximetry 03/07/24 03/07/24 03/07/24 02:05 03:00 04:00 Temperature 98.1 F Pulse Rate 86 89 Respiratory 16 14 Rate Blood Pressure 123/85 126/84 O2 Sat by Pulse 91 L 95 94 L Oximetry 03/07/24 03/07/24 03/07/24 06:00 07:41 08:07 Temperature Pulse Rate 87 86 Respiratory 18 18 Rate Blood Pressure 111/69 111/69 O2 Sat by Pulse 91 L 94 L 92 L Oximetry 03/07/24 03/07/24 03/07/24 08:47 09:00 10:00 Temperature Pulse Rate 94 90 98 Respiratory 20 20 20 Rate Blood Pressure O2 Sat by Pulse 92 L 94 L 91 L Oximetry 03/07/24 03/07/24 03/07/24 11:00 11:15 11:23 Temperature Pulse Rate 92 94 94 Respiratory 20 16 18 Rate Blood Pressure 124/79 O2 Sat by Pulse 93 L Oximetry 03/07/24 15:03 Temperature Pulse Rate 78 Respiratory 18 Rate Blood Pressure 133/78 O2 Sat by Pulse 92 L Oximetry - Reevaluation(s) Reevaluation #1: 03/06/24 20:36 Medical records reviewed Reevaluation #2: 03/06/24 20:36 Patient symptoms are mildly improved here in the ER Reevaluation #3: 03/06/24 20:36 Patient informed of results and questions answered Reevaluation #4: Was pt. sent in by a medical professional or institution (, PA, SUPERVISOR FINISH END, urgent care, hospital, or [place] [facility] facility...) When possible be specific @ -no Did you speak to anyone other than the patient for history (EMS, parent, family, police, friend...)? What history was obtained from this source @ -no Did you review nursing and triage notes (agree or disagree)? Why? @ -agree Are old charts reviewed (outside hosp., previous admission, EMS record, old EKG, old radiological studies, urgent care reports/EKG's, [place] [facility] facility records)? Report findings @ -yes Differential Diagnosis (chest pain, altered mental status, abdominal pain women, abdominal pain men, vaginal bleeding, weakness, fever, dyspnea, syncope, headache, dizziness, GI bleed, back pain, seizure, CVA, palpatations, mental health, musculoskeletal)? @ -prior EKG interpreted by me (3pts min.). @ -yes X-rays interpreted by me (1pt min.). @ -yes CHF and pneumonia CT interpreted by me (1pt min.). @ -no U/S interpreted by me (1pt. min.). @ -no What testing was considered but not performed or refused? (CT, X-rays, U/S, labs)? Why? @ -none What meds were considered but not given or refused? Why? @ -none Did you discuss the management of the patient with other professionals (professionals i.e. , PA, SUPERVISOR FINISH END, lab, RT, psych nurse, social service coordinator, production leader, teacher, staff mine warfare officer, watch case polisher)? Give summary @ -no Was smoking cessation discussed for >3mins.? @ -no Was critical care preformed (if so, how long)? @ -yes31 Were there social determinants of health that impacted care today? How? (Homelessness, low income, unemployed, alcoholism, drug addiction, transportation, low edu. Level, literacy, decrease access to med. care, intermediate, rehab)? @ -none Was there de-escalation of care discussed even if they declined (Discuss DNR or withdrawal of care, Hospice)? DNR status @ -no What co-morbidities impacted this encounter? (DM, HTN, Smoking, COPD, CAD, Cancer, CVA, ARF, Chemo, Hep., AIDS, mental health diagnosis, sleep apnea, morbid obesity)? @ -none Was patient admitted / discharged? Hospital course, mention meds given and route, prescriptions, significant lab abnormalities, going to OR and other pertinent info. @ - 78 male to ER for evaluation of acute and significant COPD exacerbation CHF and pneumonia. Acute renal failure A-fib with RVR contributing to respiratory failure Admitted Undiagnosed new problem with uncertain prognosis? @ -no Drug Therapy requiring intensive monitoring for toxicity (Heparin, Nitro, Insulin, Cardizem)? @ -no Were any procedures done? @ -no Diagnosis/symptom? @ -Respiratory distress pneumonia COPD and A-fib with RVR Acute, or Chronic, or Acute on Chronic? @ -Acute Uncomplicated (without systemic symptoms) or Complicated (systemic symptoms)? @ -Complicated Side effects of treatment? @ -no Exacerbation, Progression, or Severe Exacerbation? @ -exacerbation Poses a threat to life or bodily function? How? (Chest pain, [place], [place], pneumonia, PE, COPD, DKA, ARF, appy, cholecystitis, CVA, Diverticulitis, Homicidal, Suicidal, threat to staff... and all critical care pts) @ -yes severe respiratory distress Reevaluation #5: Differential Dyspnea: Coronary syndrome, arrhythmia, tamponade, asthma, COPD, pulmonary embolism, pneumonia, pneumothorax, pulmonary effusion, anaphylaxis, diabetic ketoacidosis, flailed chest, pulmonary contusion, diaphragmatic rupture, anemia, neuromuscular, this is not meant to be an all-inclusive list. - Consultations Consultation #1: Spoke with admitting physicians who agreed to admit this patient Medical Decision Making - Medical Decision Making 78 male to ER for evaluation of acute and significant COPD exacerbation CHF and pneumonia. Acute renal failure A-fib with RVR contributing to respiratory failure - Lab Data Result diagrams: 03/10/24 06:06 03/10/24 06:06 Lab Results 03/06/24 03/06/24 03/06/24 Range/Units 19:15 19:15 19:15 WBC 9.9 (3.8-10.6) k/uL RBC 4.99 (4.30-5.90) m/uL Hgb 14.2 (13.0-17.5) gm/dL Hct 46.9 (39.0-53.0) % MCV 94.0 (80.0-100.0) fL MCH 28.4 (25.0-35.0) pg MCHC 30.2 L (31.0-37.0) g/dL RDW 14.4 (11.5-15.5) % Plt Count 151 (150-450) k/uL MPV 7.9 Neutrophils % 86 % Lymphocytes % 5 % Monocytes % 8 % Eosinophils % 0 % Basophils % 1 % Neutrophils # 8.5 H (1.3-7.7) k/uL Lymphocytes # 0.5 L (1.0-4.8) k/uL Monocytes # 0.8 (0-1.0) k/uL Eosinophils # 0.0 (0-0.7) k/uL Basophils # 0.1 (0-0.2) k/uL Hypochromasia Marked PT 12.7 H (10.0-12.5) sec INR 1.2 H (<1.2) APTT 23.6 (22.0-30.0) sec VBG pH (7.31-7.41) VBG pCO2 (37-51) mmHg VBG HCO3 (24-28) mmol/L Sodium 137 (137-145) mmol/L Potassium 6.7 H* (3.5-5.1) mmol/L Chloride 100 (98-107) mmol/L Carbon Dioxide 31 H (22-30) mmol/L Anion Gap 6 mmol/L BUN 34 H (9-20) mg/dL Creatinine 2.25 H (0.66-1.25) mg/dL Est GFR (CKD-EPI)AfAm 32 (>60 ml/min/1.73 sqM) Est GFR (CKD-EPI)NonAf 27 (>60 ml/min/1.73 sqM) Glucose 129 H (74-99) mg/dL Lactic Ac Sepsis Rflx Plasma Lactic Acid Aiden (0.7-2.0) mmol/L Calcium 8.5 (8.4-10.2) mg/dL Magnesium 2.4 H (1.6-2.3) mg/dL Total Bilirubin 2.4 H (0.2-1.3) mg/dL AST 47 (17-59) U/L ALT 29 (4-49) U/L Alkaline Phosphatase 43 (38-126) U/L Troponin I (0.000-0.034) ng/mL NT-Pro-B Natriuret Pep 89779 pg/mL Total Protein 5.9 L (6.3-8.2) g/dL Albumin 3.7 (3.5-5.0) g/dL 03/06/24 03/06/24 03/06/24 Range/Units 19:15 19:15 19:42 WBC (3.8-10.6) k/uL RBC (4.30-5.90) m/uL Hgb (13.0-17.5) gm/dL Hct (39.0-53.0) % MCV (80.0-100.0) fL MCH (25.0-35.0) pg MCHC (31.0-37.0) g/dL RDW (11.5-15.5) % Plt Count (150-450) k/uL MPV Neutrophils % % Lymphocytes % % Monocytes % % Eosinophils % % Basophils % % Neutrophils # (1.3-7.7) k/uL Lymphocytes # (1.0-4.8) k/uL Monocytes # (0-1.0) k/uL Eosinophils # (0-0.7) k/uL Basophils # (0-0.2) k/uL Hypochromasia PT (10.0-12.5) sec INR (<1.2) APTT (22.0-30.0) sec VBG pH 7.29 L (7.31-7.41) VBG pCO2 56 H (37-51) mmHg VBG HCO3 27 (24-28) mmol/L Sodium (137-145) mmol/L Potassium (3.5-5.1) mmol/L Chloride (98-107) mmol/L Carbon Dioxide (22-30) mmol/L Anion Gap mmol/L BUN (9-20) mg/dL Creatinine (0.66-1.25) mg/dL Est GFR (CKD-EPI)AfAm (>60 ml/min/1.73 sqM) Est GFR (CKD-EPI)NonAf (>60 ml/min/1.73 sqM) Glucose (74-99) mg/dL Lactic Ac Sepsis Rflx Plasma Lactic Acid Aiden 3.3 H* (0.7-2.0) mmol/L Calcium (8.4-10.2) mg/dL Magnesium (1.6-2.3) mg/dL Total Bilirubin (0.2-1.3) mg/dL AST (17-59) U/L ALT (4-49) U/L Alkaline Phosphatase (38-126) U/L Troponin I 0.045 H* (0.000-0.034) ng/mL NT-Pro-B Natriuret Pep pg/mL Total Protein (6.3-8.2) g/dL Albumin (3.5-5.0) g/dL 03/06/24 Range/Units 20:16 WBC (3.8-10.6) k/uL RBC (4.30-5.90) m/uL Hgb (13.0-17.5) gm/dL Hct (39.0-53.0) % MCV (80.0-100.0) fL MCH (25.0-35.0) pg MCHC (31.0-37.0) g/dL RDW (11.5-15.5) % Plt Count (150-450) k/uL MPV Neutrophils % % Lymphocytes % % Monocytes % % Eosinophils % % Basophils % % Neutrophils # (1.3-7.7) k/uL Lymphocytes # (1.0-4.8) k/uL Monocytes # (0-1.0) k/uL Eosinophils # (0-0.7) k/uL Basophils # (0-0.2) k/uL Hypochromasia PT (10.0-12.5) sec INR (<1.2) APTT (22.0-30.0) sec VBG pH (7.31-7.41) VBG pCO2 (37-51) mmHg VBG HCO3 (24-28) mmol/L Sodium (137-145) mmol/L Potassium (3.5-5.1) mmol/L Chloride (98-107) mmol/L Carbon Dioxide (22-30) mmol/L Anion Gap mmol/L BUN (9-20) mg/dL Creatinine (0.66-1.25) mg/dL Est GFR (CKD-EPI)AfAm (>60 ml/min/1.73 sqM) Est GFR (CKD-EPI)NonAf (>60 ml/min/1.73 sqM) Glucose (74-99) mg/dL Lactic Ac Sepsis Rflx Y Plasma Lactic Acid Aiden (0.7-2.0) mmol/L Calcium (8.4-10.2) mg/dL Magnesium (1.6-2.3) mg/dL Total Bilirubin (0.2-1.3) mg/dL AST (17-59) U/L ALT (4-49) U/L Alkaline Phosphatase (38-126) U/L Troponin I (0.000-0.034) ng/mL NT-Pro-B Natriuret Pep pg/mL Total Protein (6.3-8.2) g/dL Albumin (3.5-5.0) g/dL - EKG Data -: EKG Interpreted by Me (EKG is A-fib with RVR 153 QRS 101 QTc 365) - Radiology Data Radiology results: report reviewed (Chest x-ray is positive for pneumonia), image reviewed Critical Care Time Critical Care Time: Yes Total Critical Care Time: 31 Disposition Clinical Impression: Acute renal failure, Acute kidney injury, Atrial fibrillation with RVR, Acute pulmonary edema, Palpitations, COPD (chronic obstructive pulmonary disease), Acute bronchitis with COPD, Pneumonia, Hypoxia Disposition: ADMITTED IP TO THIS HOSP Condition: Serious Is patient prescribed a controlled substance at d/c from ED?: No Time of Disposition: 20:30
[2024-03-06] MEDS: DILTIAZEM DRIP BOLUS FROM BAG 1 MG SOLN IV ONE (19:35)
[2024-03-06] MEDS: DILTIAZEM 125 MG in SODIUM CHLORIDE 0.9% 100 ML IV SCH (19:35)
[2024-03-06] MEDS: methylPREDNISolone SOD SUCCI 125 MG/2 ML VIAL IV STA (19:36)
[2024-03-06] MEDS: SODIUM CHLORIDE 0.9% 1,000 ML IV STA ×3 (19:36→22:24)
[2024-03-06 19:46] LABS: Basophils # (A) 0.1 k/uL (0-0.2); Basophils % (A) 1 %; Eosinophils % (A) 0 %; HCT 46.9 % (39.0-53.0); HGB 14.2 gm/dL (13.0-17.5); Hypochromasia Marked; Lymphocytes # (A) 0.5 k/uL (1.0-4.8); Lymphocytes % (A) 5 %; MCH 28.4 pg (25.0-35.0); MCHC 30.2 g/dL (31.0-37.0); Mean Platelet Volume 7.9; Monocytes # (A) 0.8 k/uL (0-1.0); Monocytes % (A) 8 %; Neutrophils # (A) 8.5 k/uL (1.3-7.7); Neutrophils % (A) 86 %; Platelet Count 151 k/uL (150-450); RBC 4.99 m/uL (4.30-5.90); RDW 14.4 % (11.5-15.5); WBC 9.9 k/uL (3.8-10.6)
[2024-03-06 19:57] LABS: INR 1.2 (<1.2); Partial Thromboplastin Time 23.6 sec (22.0-30.0); Prothrombin Time 12.7 sec (10.0-12.5)
[2024-03-06 20:00] LABS: VBG PH 7.29 (7.31-7.41)
[2024-03-06 20:04] LABS: ALT 29 U/L (4-49); African American GFR (CKD) 32 (>60 ml/min/1.73 sqM); Albumin 3.7 g/dL (3.5-5.0); Anion Gap 6 mmol/L; Blood Urea Nitrogen 34 mg/dL (9-20); Calcium 8.5 mg/dL (8.4-10.2); Carbon Dioxide 31 mmol/L (22-30); Chloride 100 mmol/L (98-107); Glucose 129 mg/dL (74-99); Non-African American GFR(CKD) 27 (>60 ml/min/1.73 sqM); Sodium 137 mmol/L (137-145); Total Bilirubin 2.4 mg/dL (0.2-1.3); Total Protein 5.9 g/dL (6.3-8.2)
[2024-03-06 20:12] LABS: NT-Pro-B-Type Natriuretic Pept 26200 pg/mL
--- NOTE | 2024-03-06 20:12 | XR ---
EXAMINATION: XR chest 1V portable DATE AND TIME: 03/06/2024 7:40 PM CLINICAL INDICATION: PHH; sob TECHNIQUE: Departmental protocol COMPARISON: 10/31/2023 CXR FINDINGS / IMPRESSION: Elevation of the right hemidiaphragm is unchanged when compared with the 10/31/2023 CXR. There is ill- defined added opacity throughout the right lower lung zone which can correlate with a clinical diagno sis of developing pneumonia with evidence of relatively smaller pleural effusion noted. Pleural spaces are negative for pneumothorax; right upper lung zone interface without a visceral line sign and with pulmonary vascular markings extending peripheral to it; findings consistent with skin fold. Cardiopericardial silhouette is not enlarged. Tortuous thoracic aorta redemonstrated. Skeletal structures and soft tissues are negative for acute findings. [facility], , 03/06/2024 8:10 PM
[2024-03-06 20:16] LABS: AST 47 U/L (17-59); Potassium 6.7 mmol/L (3.5-5.1)
[2024-03-06] MEDS: IPRATROPIUM-ALBUTEROL 3 ML NEB INHALATION STA ×2 (20:16→23:11)
[2024-03-06 20:17] LABS: Alkaline Phosphatase 43 U/L (38-126); Magnesium 2.4 mg/dL (1.6-2.3)
[2024-03-06] MEDS ORDERED: NALOXONE 0.4 MG/ML 1 ML VIAL IV PRN (20:31)
[2024-03-06] MEDS ORDERED: ONDANSETRON 4 MG/2 ML VIAL IVP PRN (20:31)
[2024-03-06] MEDS ORDERED: MORPHINE SULFATE 4 MG/ML SYRINGE IV PRN (20:31)
[2024-03-06] MEDS: DEXTROSE 50% SYRINGE 50 ML IVP STA (22:08)
[2024-03-06] MEDS: INSULIN REGULAR 100 UNIT/ML VIAL (IV) IV ONE (22:12)
[2024-03-06] MEDS: SODIUM ZIRCONIUM CYCLOSILICATE 10 GM PACKET PO ONE (22:14)
[2024-03-06] MEDS: LORazepam 2 MG/ML INJ IV STA (22:22)
[2024-03-06] MEDS: AZITHROMYCIN 500 MG in SODIUM CHLORIDE 0.9% 250 ML IVPB STA (22:24)
[2024-03-07] MEDS ORDERED: IPRATROPIUM-ALBUTEROL 3 ML NEB INHALATION PRN (03:23)
--- NOTE | 2024-03-07 03:25 | P.HPIM ---
History of Present Illness H&P Date: 03/07/24 Patient is a 78-year-old male with a PMH of COPD, ESRD on hemodialysis, diastolic CHF, paroxysmal A-fib on Eliquis, hypertension, peripheral arterial disease status post right AKA, and hyperlipidemia who presented to the emergency room with complaints of shortness of breath and a right groin mass. History is limited as the patient is somewhat confused at the time of interview Soraya supplemented from the chart and from the ED provider. The patient had reported to the ER triage staff that the mass in his right groin has been increasing in size. He also reported shortness of breath and palpitations for the past several days. He denied experiencing chest discomfort, fever, chills, cough, nausea, vomiting, abdominal pain, diarrhea. In the emergency room an EKG revealed A-fib with RVR at 153 bpm as reviewed by me. Chest x-ray revealed a right lower lung field opacity concerning for p neumonia with a pleural effusion. Laboratory evaluation was remarkable for proBNP 26,200, troponin 0.045, lactic acid 3.3, potassium 6.7 (hemolyzed). The patient's SpO2 upon arrival in the emergency room was 83% on 6 L nasal cannula oxygen with a pulse of 170 and temp 97.0 F with respiratory rate 26 and BP 133/116. ED documentation reviewed and case discussed with ED provider. Review of systems: Pertinent positives and negatives as discussed in HPI, a complete review of systems was performed and all other systems are negative. Physical examination: Vital signs reviewed General: non toxic, no distress, appears at stated age, normal weight Derm: no unusual rashes/lesions, warm Head: atraumatic, normocephalic, symmetric Eyes: EOMI, no lid lag, anicteric sclera, pupils equal round reactive to light ENT: Nose and ears atraumatic Neck: No cervical lymphadenopathy, trachea midline, supple Mouth: no lip lesion, mucus membranes moist Cardiovascular: S1S2 reg, no murmur, positive dorsalis pedis pulse left lower extremity, no edema Lungs: Mild scattered coarse breath sounds, no rhonchi, no rales, no accessory muscle use Abdominal: soft, nontender to palpation, no guarding, right inguinal protruding mass with a palpable thrill Ext: muscle strength 5 out of 5 in all 4 extremities grossly, no gross muscle atrophy, no contractures, right AKA Neuro: CN II-XI grossly intact, no gross focal neuro deficits Psych: Somewhat lethargic, oriented to person and place only Assessment: Acute hypoxic respiratory failure, likely multifactorial secondary to acute COPD exacerbation with fluid overload in setting of diastolic CHF and ESRD versus developing pneumonia A-fib with RVR Elevated troponin, likely type II [place] in setting of above, patient denying chest discomfort Right inguinal mass with palpable thrill, likely AV fistula for dialysis Hyperkalemia, status post cocktail, hemolyzed specimen Lactic acidosis ESRD on hemodialysis Imaging: In the emergency room an EKG revealed A-fib with RVR at 153 bpm as reviewed by me. Chest x-ray revealed a right lower lung field opacity concerning for pneumonia with a pleural effusion. Data Review: Laboratory evaluation was remarkable for proBNP 26,200, troponin 0.045, lactic acid 3.3, potassium 6.7 (hemolyzed). The patient's SpO2 upon arrival in the emergency room was 83% on 6 L nasal cannula oxygen with a pulse of 170 and temp 97.0 F with respiratory rate 26 and BP 133/116. Plan: Continue with supplemental oxygen Nephrology consulted for hemodialysis resumption Check procalcitonin levels and continue azithromycin and ceftriaxone for now Continue prednisone 40 mg p.o. daily with DuoNebs [id number] and as needed Continue with Cardizem infusion Cardiac monitoring Cardiology and pulmonary consults Trend troponin Trend BMP and lactic acid levels for resolution DVT prophylaxis: Eliquis The patient is admitted with an anticipated greater than 2 midnight stay for evaluation of hypoxic respiratory failure CODE STATUS: Full Code Discussed with: Patient Anticipated discharge place: Home Past Medical History Past Medical History: Atrial Fibrillation, Deep Vein Thrombosis (DVT), GERD/Reflux, Hearing Disorder / Deafness, Hyperlipidemia, Osteoarthritis (OA), Prostate Disorder, Sleep Apnea/CPAP/BIPAP Additional Past Medical History / Comment(s): DVT Last Myocardial Infarction Date:: UNKNOWN History of Any Multi-Drug Resistant Organisms: None Reported Past Surgical History: Heart Catheterization With Stent Additional Past Surgical History / Comment(s): Femoral bypass right and left, removed steel from right lung and retired up diaphram, right above knee amputee Past Anesthesia/Blood Transfusion Reactions: No Reported Reaction Date of Last Stent Placement:: UNKNOWN Past Psychological History: Depression, PTSD Smoking Status: Former smoker Past Alcohol Use History: None Reported Past Drug Use History: None Reported - Past Family History Mother Family Medical History: Myocardial Infarction ([place]) Father Family Medical History: Dementia Medications and Allergies Home Medications Medication Instructions Recorded Confirmed Type Cholecalciferol [Vitamin D3 (25 25 mcg PO DAILY 09/02/23 03/06/24 History Mcg = 1000 Iu)] Tamsulosin [Flomax] 0.4 mg PO DAILY 09/02/23 03/06/24 History Calcium Acetate [PhosLo] 667 mg PO BID-W/MEALS tab 09/12/23 03/06/24 Rx Isosorbide Mononitrate ER [Imdur] 30 mg PO DAILY 09/17/23 03/06/24 History amLODIPine [Norvasc] 10 mg PO DAILY 09/17/23 03/06/24 History hydrALAZINE HCL [Apresoline] 100 mg PO TID 09/17/23 03/06/24 History carvediloL [Coreg*] 12.5 mg PO BID-W/MEALS #0 tab 09/21/23 03/06/24 Rx Apixaban [Eliquis] 5 mg PO BID 10/31/23 03/06/24 History Atorvastatin [Lipitor] 10 mg PO HS 03/06/24 03/06/24 History Sennosides [Senokot] 17.2 mg PO HS 03/06/24 03/06/24 History Torsemide [Demadex] 40 mg PO DAILY 03/06/24 03/06/24 History Allergies Allergy/AdvReac Type Severity Reaction Status Date / Time No Known Allergies Allergy Verified 03/06/24 20:24 Physical Exam Vitals: Vital Signs Temp Pulse Resp BP Pulse Ox 03/07/24 02:05 98.1 F 86 16 123/85 91 L 03/07/24 00:00 63 14 126/83 93 L 03/06/24 22:21 97 20 146/84 98 03/06/24 21:03 98 16 143/85 97 03/06/24 20:27 100 03/06/24 20:17 104 H 03/06/24 19:48 20 03/06/24 19:45 103 H 20 135/81 87 L 03/06/24 19:30 138 H 24 131/93 84 L 03/06/24 19:15 97.0 F L 137 H 21 133/116 83 L Intake and Output 03/06/24 03/06/24 03/07/24 14:59 22:59 06:59 Other: Weight 65.771 kg Results CBC & Chem 7: 03/06/24 19:15 03/06/24 19:15 Labs: Abnormal Lab Results - Last 24 Hours (Table) 03/06/24 03/06/24 03/06/24 Range/Units 19:15 19:15 19:15 MCHC 30.2 L (31.0-37.0) g/dL Neutrophils # 8.5 H (1.3-7.7) k/uL Lymphocytes # 0.5 L (1.0-4.8) k/uL PT 12.7 H (10.0-12.5) sec INR 1.2 H (<1.2) VBG pH (7.31-7.41) VBG pCO2 (37-51) mmHg Potassium 6.7 H* (3.5-5.1) mmol/L Carbon Dioxide 31 H (22-30) mmol/L BUN 34 H (9-20) mg/dL Creatinine 2.25 H (0.66-1.25) mg/dL Glucose 129 H (74-99) mg/dL Plasma Lactic Acid Aiden (0.7-2.0) mmol/L Magnesium 2.4 H (1.6-2.3) mg/dL Total Bilirubin 2.4 H (0.2-1.3) mg/dL Troponin I (0.000-0.034) ng/mL Total Protein 5.9 L (6.3-8.2) g/dL 03/06/24 03/06/24 03/06/24 Range/Units 19:15 19:15 19:42 MCHC (31.0-37.0) g/dL Neutrophils # (1.3-7.7) k/uL Lymphocytes # (1.0-4.8) k/uL PT (10.0-12.5) sec INR (<1.2) VBG pH 7.29 L (7.31-7.41) VBG pCO2 56 H (37-51) mmHg Potassium (3.5-5.1) mmol/L Carbon Dioxide (22-30) mmol/L BUN (9-20) mg/dL Creatinine (0.66-1.25) mg/dL Glucose (74-99) mg/dL Plasma Lactic Acid Aiden 3.3 H* (0.7-2.0) mmol/L Magnesium (1.6-2.3) mg/dL Total Bilirubin (0.2-1.3) mg/dL Troponin I 0.045 H* (0.000-0.034) ng/mL Total Protein (6.3-8.2) g/dL 03/07/24 Range/Units 00:20 MCHC (31.0-37.0) g/dL Neutrophils # (1.3-7.7) k/uL Lymphocytes # (1.0-4.8) k/uL PT (10.0-12.5) sec INR (<1.2) VBG pH (7.31-7.41) VBG pCO2 (37-51) mmHg Potassium (3.5-5.1) mmol/L Carbon Dioxide (22-30) mmol/L BUN (9-20) mg/dL Creatinine (0.66-1.25) mg/dL Glucose (74-99) mg/dL Plasma Lactic Acid Aiden (0.7-2.0) mmol/L Magnesium (1.6-2.3) mg/dL Total Bilirubin (0.2-1.3) mg/dL Troponin I 0.205 H* (0.000-0.034) ng/mL Total Protein (6.3-8.2) g/dL
--- NOTE | 2024-03-07 03:35 | XR ---
EXAM: XR Chest, 1 View CLINICAL HISTORY: XR Reason: Hypoxia TECHNIQUE: Frontal view of the chest. COMPARISON: 03/06/2024 FINDINGS: Lungs: Hazy increased density over the right hemithorax, increased since previous suggesting increasing pneumonia and/or pleural effusion layering posteriorly. Punctate calcifications projecting over the right hemithorax, unchanged. Pleural space: Unremarkable. No pneumothorax. Heart: The cardiac silhouette is borderline enlarged. Mediastinum: Unremarkable. Normal mediastinal contour. Bones/joints: Unremarkable. No acute fracture. Vasculature: The aortic arch is mildly calcified but nondilated. Upper abdomen: There is no pneumoperitoneum under the diaphragm. IMPRESSION: Hazy increased density over the right hemithorax, increased since previous suggesting increasing pneumonia and/or pleural effusion layering posteriorly.
[2024-03-07] MEDS: IPRATROPIUM-ALBUTEROL 3 ML NEB INHALATION SCH (08:07)
[2024-03-07] MEDS: AZITHROMYCIN 500 MG in SODIUM CHLORIDE 0.9% 250 ML IVPB SCH (08:21)
[2024-03-07] MEDS: TORSEMIDE 20 MG TAB PO SCH (08:22)
[2024-03-07] MEDS: APIXABAN 5 MG TAB PO SCH (08:22)
[2024-03-07] MEDS: hydrALAZINE HCL 50 MG TAB PO SCH (08:22)
[2024-03-07] MEDS: ISOSORBIDE MONONITRATE ER 30 MG TAB.ER.24H PO SCH (08:22)
[2024-03-07] MEDS: predniSONE 20 MG TAB PO SCH (08:22)
[2024-03-07] MEDS: TAMSULOSIN 0.4 MG CAP.ER.24H PO SCH (08:22)
[2024-03-07] MEDS: CALCIUM ACETATE 667 MG TAB PO SCH (08:23)
[2024-03-07] MEDS: amLODIPine 5 MG TAB PO SCH (08:25)
[2024-03-07] MEDS: carvediloL 12.5 MG TAB PO SCH ×2 (08:35→17:20)
[2024-03-07] MEDS ORDERED: amLODIPine 10 MG TAB PO SCH (09:00)
[2024-03-07 09:39] LABS: African American GFR (CKD) 22 (>60 ml/min/1.73 sqM); Anion Gap 6 mmol/L; Blood Urea Nitrogen 44 mg/dL (9-20); Calcium 8.1 mg/dL (8.4-10.2); Carbon Dioxide 28 mmol/L (22-30); Chloride 102 mmol/L (98-107); Glucose 194 mg/dL (74-99); Non-African American GFR(CKD) 19 (>60 ml/min/1.73 sqM); Potassium 4.9 mmol/L (3.5-5.1); Sodium 136 mmol/L (137-145)
--- NOTE | 2024-03-07 09:44 | P.CRDCN ---
History of Present Illness Consult date: 03/07/24 Consult reason: atrial fibrillation History of present illness: This is a 78-year-old male patient of Dr. Siegel with past medical history of right [id number] amputation, persistent atrial fibrillation on Eliquis, hypertension, hyperlipidemia, coronary artery disease with multiple stents in the past, PAD with abdominal aortic aneurysm status post EVAR with additional PAD, end-stage renal disease previously on hemodialysis. We have been asked to evaluate the patient for atrial fibrillation. Patient states he came into the hospital due to shortness of breath. He states his last hemodialysis was 3 to 4 months ago he states that he was told he did not require it any longer. Patient does have a cough which she states he always has and is about the same. No fever, no chest pain, no palpitations, no dizziness no syncopal episodes. He denies any nausea or vomiting, no blood in his stool or urine, no history of stroke or seizure. Patient is an active smoker on and off. Patient was found to be in A-fib with RVR and was started on Cardizem drip at 5 mg/h. He is status post 2 L of IV fluid, Lokelma also started on COPD medications. Patient also noted to have a large mass in the right groin for which we ordered an ultrasound which came back as pseudoaneurysm and we have added in a consult with vascular surgery and recommendations are for transfer to tertiary care. Regarding this mass, he states he has had it for about 2 to 3 weeks. Blood pressure 111/69, heart rate 86, pulse ox 94%. EKG: Atrial fibrillation at 153 bpm Chest x-ray: #1 negative for acute finding. #2 hazy density in the right hemithorax Laboratory studies: WBC 9.9, hemoglobin 14.2, hemoglobin 151. INR 1.2. Initial potassium 6.7 now 4.9, sodium 136, BUN 44 creatinine 3. Troponins 0.045, 0.205, 0.311. Lactic acid 3.3 and repeat 1.5, magnesium 2.4. Home cardiac medications: Amlodipine 10 mg daily, Eliquis 5 mg twice daily, atorvastatin 10 mg at bedtime, Coreg 12.5 mg twice daily, hydralazine 100 mg 3 times daily, Imdur 30 mg daily, torsemide 40 mg daily. Echocardiogram performed on 09/11/2023 reveals EF of 50 to 55%, mildly increased left ventricular wall thickness, moderate to severe biatrial enlargement, mild right ventricular dilation, trace mitral regurgitation, no pericardial effusion. Lexiscan Cardiolite stress test performed 04/2023 revealed fixed inferior defect likely consistent with prior infarct as well as small sized apical perfusion defect concerning for ischemia. Plan for medical therapy. Review Of Systems: At the time of my exam: CONSTITUTIONAL: Denies fever or chills. HEENT: Denies blurred vision, vision changes, or eye pain. Denies hemoptysis CARDIOVASCULAR: Denies chest pain. Denies orthopnea. Denies PND. Denies palpitations RESPIRATORY: Reports shortness of breath. GASTROINTESTINAL: Denies abdominal pain. Denies nausea or vomiting. HEMATOLOGIC: Denies bleeding disorders. GENITOURINARY: Denies any blood in urine. SKIN: Denies puritis. Denies rash. Physical examination: Gen: This is a thin 78-year-old male in no acute distress VS: reviewed HEENT: Head is atraumatic, normocephalic. Pupils equal, round. Sclerae is anicteric. NECK: Supple. No JVD. LUNGS: Clear to auscultation. No wheezes or rhonchi. No intercostal retractions. HEART: Irregular rate and rhythm. No murmur. ABDOMEN: Soft No tenderness. Large mass in the right groin. EXTREMITIES: No pedal edema. No calf tenderness. + Right [id number] amputation. NEUROLOGICAL: Patient is awake, alert and oriented x3. Assessment: Type II NSTEMI secondary to lactic acidosis, COPD exacerbation COPD exacerbation Pseudoaneurysm right groin Persistent atrial fibrillation on Eliquis Hypertension Hyperlipidemia Coronary artery disease with previous stents PAD with abdominal aortic aneurysm status post EVAR with additional PAD End-stage renal disease recently stopped hemodialysis Tobacco use and dependence Plan: Resume patient's home cardiac medications with the following changes: Increase Coreg to 25 mg twice daily Decrease amlodipine to 5 mg daily Increase Lipitor to 40 mg daily Discontinue Cardizem drip No need to repeat echocardiogram Repeat BMP in the morning Consult with vascular surgery regarding pseudoaneurysm right groin Further recommendations to follow based upon clinical course Thank you kindly for this consultation. Nurse practitioner note has been reviewed, I agree with documented findings and plan of care. Patient was seen and examined. Past Medical History Past Medical History: Atrial Fibrillation, Deep Vein Thrombosis (DVT), GERD/Reflux, Hearing Disorder / Deafness, Hyperlipidemia, Osteoarthritis (OA), Prostate Disorder, Sleep Apnea/CPAP/BIPAP Additional Past Medical History / Comment(s): DVT Last Myocardial Infarction Date:: UNKNOWN History of Any Multi-Drug Resistant Organisms: None Reported Past Surgical History: Heart Catheterization With Stent Additional Past Surgical History / Comment(s): Femoral bypass right and left, re moved steel from right lung and retired up diaphram, right above knee amputee Past Anesthesia/Blood Transfusion Reactions: No Reported Reaction Date of Last Stent Placement:: UNKNOWN Past Psychological History: Depression, PTSD Smoking Status: Former smoker Past Alcohol Use History: None Reported Past Drug Use History: None Reported - Past Family History Mother Family Medical History: Myocardial Infarction ([place]) Father Family Medical History: Dementia Medications and Allergies Home Medications Medication Instructions Recorded Confirmed Type Cholecalciferol [Vitamin D3 (25 25 mcg PO DAILY 09/02/23 03/06/24 History Mcg = 1000 Iu)] Tamsulosin [Flomax] 0.4 mg PO DAILY 09/02/23 03/06/24 History Calcium Acetate [PhosLo] 667 mg PO BID-W/MEALS tab 09/12/23 03/06/24 Rx Isosorbide Mononitrate ER [Imdur] 30 mg PO DAILY 09/17/23 03/06/24 History amLODIPine [Norvasc] 10 mg PO DAILY 09/17/23 03/06/24 History hydrALAZINE HCL [Apresoline] 100 mg PO TID 09/17/23 03/06/24 History carvediloL [Coreg*] 12.5 mg PO BID-W/MEALS #0 tab 09/21/23 03/06/24 Rx Apixaban [Eliquis] 5 mg PO BID 10/31/23 03/06/24 History Atorvastatin [Lipitor] 10 mg PO HS 03/06/24 03/06/24 History Sennosides [Senokot] 17.2 mg PO HS 03/06/24 03/06/24 History Torsemide [Demadex] 40 mg PO DAILY 03/06/24 03/06/24 History Allergies Allergy/AdvReac Type Severity Reaction Status Date / Time No Known Allergies Allergy Verified 03/06/24 20:24 Physical Exam Vitals: Vital Signs Temp Pulse Resp BP Pulse Ox 03/07/24 07:41 86 18 111/69 94 L 03/07/24 06:00 87 18 111/69 91 L 03/07/24 04:00 89 14 126/84 94 L 03/07/24 03:00 95 03/07/24 02:05 98.1 F 86 16 123/85 91 L 03/07/24 00:00 63 14 126/83 93 L 03/06/24 22:21 97 20 146/84 98 03/06/24 21:03 98 16 143/85 97 03/06/24 20:27 100 03/06/24 20:17 104 H 03/06/24 19:48 20 03/06/24 19:45 103 H 20 135/81 87 L 03/06/24 19:30 138 H 24 131/93 84 L 03/06/24 19:15 97.0 F L 137 H 21 133/116 83 L Intake and Output 03/06/24 03/07/24 03/07/24 22:59 06:59 14:59 Other: Weight 65.771 kg Results 03/06/24 19:15 03/07/24 08:51 Cardiac Enzymes 03/06/24 03/06/24 03/07/24 Range/Units 19:15 19:15 00:20 AST 47 (17-59) U/L Troponin I 0.045 H* 0.205 H* (0.000-0.034) ng/mL 03/07/24 Range/Units 04:30 AST (17-59) U/L Troponin I 0.311 H* (0.000-0.034) ng/mL Coagulation 03/06/24 Range/Units 19:15 PT 12.7 H (10.0-12.5) sec APTT 23.6 (22.0-30.0) sec CBC 03/06/24 Range/Units 19:15 WBC 9.9 (3.8-10.6) k/uL RBC 4.99 (4.30-5.90) m/uL Hgb 14.2 (13.0-17.5) gm/dL Hct 46.9 (39.0-53.0) % Plt Count 151 (150-450) k/uL Comprehensive Metabolic Panel 03/06/24 Range/Units 19:15 Sodium 137 (137-145) mmol/L Potassium 6.7 H* (3.5-5.1) mmol/L Chloride 100 (98-107) mmol/L Carbon Dioxide 31 H (22-30) mmol/L BUN 34 H (9-20) mg/dL Creatinine 2.25 H (0.66-1.25) mg/dL Glucose 129 H (74-99) mg/dL Calcium 8.5 (8.4-10.2) mg/dL AST 47 (17-59) U/L ALT 29 (4-49) U/L Alkaline Phosphatase 43 (38-126) U/L Total Protein 5.9 L (6.3-8.2) g/dL Albumin 3.7 (3.5-5.0) g/dL Current Medications Generic Name Dose Route Start Last Admin Trade Name Freq PRN Reason Stop Dose Admin Albuterol/Ipratropium 3 ml 03/07/24 03:23 Ipratropium-Albuterol 3 Ml Neb INHALATION RT-QID PRN Shortness Of Breath Or Wheezing Albuterol/Ipratropium 3 ml 03/07/24 08:00 Ipratropium-Albuterol 3 Ml Neb INHALATION RT-QID COUNTS INCLUDE 234 BEDS AT THE [facility] Amlodipine Besylate 10 mg 03/07/24 09:00 Amlodipine 10 Mg Tab PO DAILY COUNTS INCLUDE 234 BEDS AT THE [facility] Apixaban 5 mg 03/07/24 09:00 Apixaban 5 Mg Tab PO BID COUNTS INCLUDE 234 BEDS AT THE [facility] Protocol Atorvastatin Calcium 10 mg 03/07/24 21:00 Atorvastatin 20 Mg Tab PO HS COUNTS INCLUDE 234 BEDS AT THE [facility] Calcium Acetate 667 mg 03/07/24 07:30 Calcium Acetate 667 Mg Tab PO BID-W/MEALS COUNTS INCLUDE 234 BEDS AT THE [facility] Carvedilol 12.5 mg 03/07/24 07:30 Carvedilol 12.5 Mg Tab PO BID-W/MEALS COUNTS INCLUDE 234 BEDS AT THE [facility] Hydralazine HCl 100 mg 03/07/24 09:00 Hydralazine Hcl 50 Mg Tab PO TID COUNTS INCLUDE 234 BEDS AT THE [facility] Diltiazem HCl 125 mg/ Sodium 125 mls @ 5 mls/hr 03/06/24 20:00 03/06/24 19:35 Chloride IV 5 mg/hr .Q24H TYLOR 5 mls/hr Administration 5 MG/HR Azithromycin 500 mg/ Sodium 250 mls @ 250 mls/hr 03/07/24 09:00 Chloride IVPB 03/09/24 09:59 DAILY COUNTS INCLUDE 234 BEDS AT THE [facility] Protocol Ceftriaxone Sodium 2 gm/ 50 mls @ 100 mls/hr 03/07/24 09:00 Sodium Chloride IVPB Q24HR COUNTS INCLUDE 234 BEDS AT THE [facility] Protocol Isosorbide Mononitrate 30 mg 03/07/24 09:00 Isosorbide Mononitrate Er 30 Mg Tab.Er.24h PO DAILY COUNTS INCLUDE 234 BEDS AT THE [facility] Morphine Sulfate 4 mg 03/06/24 20:31 Morphine Sulfate 4 Mg/Ml Syringe IV Q4HR PRN Severe Pain (Scale 7 to 10) Naloxone HCl 0.2 mg 03/06/24 20:31 Naloxone 0.4 Mg/Ml 1 Ml Vial IV Q2M PRN Opioid Reversal Ondansetron HCl 4 mg 03/06/24 20:31 Ondansetron 4 Mg/2 Ml Vial IVP Q8HR PRN Nausea And Vomiting Prednisone 40 mg 03/07/24 09:00 Prednisone 20 Mg Tab PO DAILY COUNTS INCLUDE 234 BEDS AT THE [facility] Tamsulosin HCl 0.4 mg 03/07/24 09:00 Tamsulosin 0.4 Mg Cap.Er.24h PO DAILY COUNTS INCLUDE 234 BEDS AT THE [facility] Torsemide 40 mg 03/07/24 09:00 Torsemide 20 Mg Tab PO DAILY COUNTS INCLUDE 234 BEDS AT THE [facility] Intake and Output 03/06/24 03/07/24 03/07/24 22:59 06:59 14:59 Other: Weight 65.771 kg 03/06/24 19:15 03/06/24 19:15
--- NOTE | 2024-03-07 10:20 | US ---
EXAMINATION TYPE: US pelvic limited DATE OF EXAM: 03/07/2024 COMPARISON: None HISTORY: Bulge and a groin TECHNIQUE: Real-time linear array sonography is performed over the right groin. Color flow sonography and Doppler sonography is performed. FINDINGS: There is a large hypoechoic complex area within the right groin at the palpable region. Th is measures roughly 4.6 x 3.1 cm color flow is present suggesting pseudoaneurysm. IMPRESSION: 1. There appears to be a pseudoaneurysm right groin at the palpable [facility] Candy [place], , 03/07/2024 9:20 AM
--- NOTE | 2024-03-07 10:24 | CDI ---
Documentation Clarification Form Date: 03/07/2024 From: Haylee Cohn RN CCDS Phone: [phone] Admit Date: 03/06/2024 08:33:00 PM Patient Name: Joaquin Fofana Visit Number: [id number] Discharge Date: ATTENTION: The Clinical Documentation Specialists (CDI) and [facility] Coding Staff appreciate your assistance in clarifying documentation. Please respond to the clarification below the line at the bottom and electronically sign. The CDI & [facility] Coding staff will review the response and follow-up if needed. Please note: Queries are made part of the Legal Health Record. If you have any questions, please contact the author of this message via ITS. Doctor/Provider: Christophe Siegel MD: Sepsis is documented Cardiology consult 03/07 but is not noted in subsequent documentation. Clarification is requested. History/Risk Factors: 78-year-old male with a history of COPD, Diastolic CHF, ESRD, persistent atrial fibrillation, HTN, HLD, CAD who presents with SOB, Atrial fibrillation Clinical Indicators: 03/06 Triage VS: 133/116, 97.0, 170, 26, 83% 6liters nasal cannula 03/06, 03/07 Temperature: 97.0, 98.1 03/07 Cardiology consult, Assessment: "Type II NSTEMI secondary to sepsis." 03/07 H&P, Assessment: "Acute hypoxic respiratory failure, likely multifactorial secondary to acute COPD exacerbation with fluid overload in setting of diastolic CHF and ESRD versus developing pneumonia." 03/06 WBC: 9.9 03/06, 03/07 Lactic Acid: 3.3, 1.5 03/06 BNP: 26,200 03/06-03/07 Troponin: 0.045, 0.205, 0.311 03/06 Chest X Ray, Findings/Impression: "There is ill-defined added opacity throughout the right lower lung zone which can correlate with a clinical diagnosis of developing pneumonia with evidence of relatively smaller pleural effusion noted." 03/07 Chest X Ray, Impression: "Hazy increased density over the right hemithorax, increased since previous suggesting increasing pneumonia and/or pleural effusion layering posteriorly." Treatment: Normal Saline 1000cc IV bolus x 2 on 03/06, the 75cc/hour start 03/06 Zithromax 500mg IV once 03/06 then daily for three doses start 03/07 Rocephin 2gram IV once on 03/06 then [id number] start 03/07 Please clarify if the Sepsis is: [ ] Sepsis POA, confirmed, remains under treatment [ ] Sepsis confirmed, resolved [ ] Sepsis ruled out [ ] Other condition, please specify: although the patient was started on IV abxs for likely pneumonia, I do not believe he was septic. The tachycardia is from the Afib and RVR. [ ] Unable to determine SIRS Criteria: 2 or more of the following may indicate SIRS Temperature < 96.8F (36C) or > 101.0F (38.3C) Heart Rate > 90 bpm Respiratory Rate > 20 breaths/min or PaCO2 < 32 mmHg White Blood Cell Count > 12,000 or < 4,000 cells/mm3 or > 10% bands MTDD
--- NOTE | 2024-03-07 11:20 | P.NPCON ---
History of Present Illness - Reason for Consult acute renal failure, chronic renal failure - History of Present Illness Reason for consultation: Acute kidney injury on chronic kidney disease History of present is: Patient is a 78-year-old male seen in renal consultation for acute kidney injury on chronic kidney disease. Patient came to the hospital due to a lump on his right groin. Patient denies any drainage. No fever or chills. Patient developed acute kidney injury in October 2023 and underwent temporary hemodialysis. Patient states he has been off hemodialysis for a few months now. Creatinine t his admission was 2.25 and is up to 3.0 today. Patient did receive 2 L of normal saline bolus and then maintenance fluids for a few hours. He is also getting torsemide. He denies chest pain or shortness of breath. He denies history of diabetes. Patient does have history of coronary artery disease with stents. Potassium was 6.7 on admission which was medically treated and is 4.9 today. He denies use of nonsteroidals. Denies gross hematuria or dysuria. Bladder scan has been negative for urinary retention. No vomiting or diarrhea. Vital signs are stable. General: No acute distress. HEENT: Head exam is unremarkable. On nasal cannula. LUNGS: No audible rhonchi or wheezes. HEART: Rate and Rhythm are regular. ABDOMEN: Nontender. EXTREMITITES: Trace edema. AKA noted. Past Medical History Past Medical History: Atrial Fibrillation, Deep Vein Thrombosis (DVT), GERD/Reflux, Hearing Disorder / Deafness, Hyperlipidemia, Osteoarthritis (OA), Prostate Disorder, Sleep Apnea/CPAP/BIPAP Additional Past Medical History / Comment(s): DVT Last Myocardial Infarction Date:: UNKNOWN History of Any Multi-Drug Resistant Organisms: None Reported Past Surgical History: Heart Catheterization With Stent Additional Past Surgical History / Comment(s): Femoral bypass right and left, removed steel from right lung and retired up diaphram, right above knee amputee Past Anesthesia/Blood Transfusion Reactions: No Reported Reaction Date of Last Stent Placement:: UNKNOWN Past Psychological History: Depression, PTSD Smoking Status: Former smoker Past Alcohol Use History: None Reported Past Drug Use History: None Reported - Past Family History Mother Family Medical History: Myocardial Infarction ([place]) Father Family Medical History: Dementia Medications and Allergies Home Medications Medication Instructions Recorded Confirmed Type Cholecalciferol [Vitamin D3 (25 25 mcg PO DAILY 09/02/23 03/06/24 History Mcg = 1000 Iu)] Tamsulosin [Flomax] 0.4 mg PO DAILY 09/02/23 03/06/24 History Calcium Acetate [PhosLo] 667 mg PO BID-W/MEALS tab 09/12/23 03/06/24 Rx Isosorbide Mononitrate ER [Imdur] 30 mg PO DAILY 09/17/23 03/06/24 History amLODIPine [Norvasc] 10 mg PO DAILY 09/17/23 03/06/24 History hydrALAZINE HCL [Apresoline] 100 mg PO TID 09/17/23 03/06/24 History carvediloL [Coreg*] 12.5 mg PO BID-W/MEALS #0 tab 09/21/23 03/06/24 Rx Apixaban [Eliquis] 5 mg PO BID 10/31/23 03/06/24 History Atorvastatin [Lipitor] 10 mg PO HS 03/06/24 03/06/24 History Sennosides [Senokot] 17.2 mg PO HS 03/06/24 03/06/24 History Torsemide [Demadex] 40 mg PO DAILY 03/06/24 03/06/24 History Allergies Allergy/AdvReac Type Severity Reaction Status Date / Time No Known Allergies Allergy Verified 03/06/24 20:24 Physical Exam Vitals: Vital Signs Temp Pulse Resp BP Pulse Ox 03/07/24 08:07 2 L 03/07/24 07:41 86 18 111/69 94 L 03/07/24 06:00 87 18 111/69 91 L 03/07/24 04:00 89 14 126/84 94 L 03/07/24 03:00 95 03/07/24 02:05 98.1 F 86 16 123/85 91 L 03/07/24 00:00 63 14 126/83 93 L 03/06/24 22:21 97 20 146/84 98 03/06/24 21:03 98 16 143/85 97 03/06/24 20:27 100 03/06/24 20:17 104 H 03/06/24 19:48 20 03/06/24 19:45 103 H 20 135/81 87 L 03/06/24 19:30 138 H 24 131/93 84 L 03/06/24 19:15 97.0 F L 137 H 21 133/116 83 L Intake and Output 03/06/24 03/07/24 03/07/24 22:59 06:59 14:59 Other: Weight 65.771 kg Results - Lab Results Most recent lab results Calcium 8.1 mg/dL (8.4-10.2) L 03/07/24 08:51 Magnesium 2.4 mg/dL (1.6-2.3) H 03/06/24 19:15 03/06/24 19:15 03/07/24 08:51 Assessment and Plan Plan: Assessment: 1. Acute kidney injury secondary to hemodynamic ATN. Creatinine 2.25 on admission and is 3.0 today. History of hemodialysis dependent acute kidney injury. Has been off dialysis for a few months now. Ultrasound from October 2023 showed no evidence of hydronephrosis. 2. Right groin pseudoaneurysm. 3. Coronary disease with stents. 4. Hyperkalemia secondary to acute kidney injury. Hemolyzed sample. Medically treated. Potassium level 4.9 this morning. 5. Hypertension with chronic kidney disease. 6. Chronic diastolic CHF. 7. History of AAA with stent placement. 8. Pneumonia on antibiotics. 9. Chronic kidney disease stage IV. 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 Establish baseline renal function. 10. NSTEMI. Cardiology following. 11. A-fib with RVR status post Cardizem drip. On Coreg. Plan: Hep-Lock IV fluids. Hold off on diuretics at this time. Bladder scan negative for urinary retention. Continue to monitor renal function and urine output. Repeat renal ultrasound. Avoid nephrotoxins. Continue to monitor renal function and urine output. Thank you for the consultation. I will continue to follow the patient with you during his hospital stay.
--- NOTE | 2024-03-07 11:57 | P.GSCN ---
History of Present Illness Consult date: 03/07/24 Reason for Consult: Pseudoaneurysm Requesting physician: Cedric Main History of present illness: This a pleasant 78-year-old male patient with multiple comorbidities including atrial fibrillation, hypertension, hyperlipidemia, coronary artery disease with multiple stents in the past, peripheral arterial disease with abdominal aortic aneurysm status post EVAR with additional femorofemoral bypass, right [id number] amputation, end-stage renal disease previously on hemodialysis, COPD who had presented to the emergency department for complaints of shortness of breath and dyspnea on exertion. He has multiple consultants on his case including cardiology for elevated troponins and persistent atrial fibrillation on Eliquis. They had noted a right groin mass and patient underwent ultrasound that is reporting pseudoaneurysm. Vascular surgery was consulted for pseudoaneurysm. Patient has had all of his vascular work done by Dr. James at [facility] last done around 2019. Patient states he has had the right groin aneurysm/mass for about the last 1 year duration. He has not seen his vascular surgeon in a couple years. Ultrasound of the groin reports 4 x 6 x 3.1 cm pseudoaneurysm. Patient denies any pain down his left lower extremity. Denies any pain in his right extremity, and no abdominal pain. Review of Systems A 14 point review systems was completed all pertinent positives and negatives as stated in the HPI. Past Medical History Past Medical History: Atrial Fibrillation, Deep Vein Thrombosis (DVT), GERD/Reflux, Hearing Disorder / Deafness, Hyperlipidemia, Osteoarthritis (OA), Prostate Disorder, Sleep Apnea/CPAP/BIPAP Additional Past Medical History / Comment(s): DVT Last Myocardial Infarction Date:: UNKNOWN History of Any Multi-Drug Resistant Organisms: None Reported Past Surgical History: Heart Catheterization With Stent Additional Past Surgical History / Comment(s): Femoral bypass right and left, removed steel from right lung and retired up diaphram, right above knee amputee Past Anesthesia/Blood Transfusion Reactions: No Reported Reaction Date of Last Stent Placement:: UNKNOWN Past Psychological History: Depression, PTSD Smoking Status: Former smoker Past Alcohol Use History: None Reported Past Drug Use History: None Reported - Past Family History Mother Family Medical History: Myocardial Infarction ([place]) Father Family Medical History: Dementia Medications and Allergies Home Medications Medication Instructions Recorded Confirmed Type Cholecalciferol [Vitamin D3 (25 25 mcg PO DAILY 09/02/23 03/06/24 History Mcg = 1000 Iu)] Tamsulosin [Flomax] 0.4 mg PO DAILY 09/02/23 03/06/24 History Calcium Acetate [PhosLo] 667 mg PO BID-W/MEALS tab 09/12/23 03/06/24 Rx Isosorbide Mononitrate ER [Imdur] 30 mg PO DAILY 09/17/23 03/06/24 History amLODIPine [Norvasc] 10 mg PO DAILY 09/17/23 03/06/24 History hydrALAZINE HCL [Apresoline] 100 mg PO TID 09/17/23 03/06/24 History carvediloL [Coreg*] 12.5 mg PO BID-W/MEALS #0 tab 09/21/23 03/06/24 Rx Apixaban [Eliquis] 5 mg PO BID 10/31/23 03/06/24 History Atorvastatin [Lipitor] 10 mg PO HS 03/06/24 03/06/24 History Sennosides [Senokot] 17.2 mg PO HS 03/06/24 03/06/24 History Torsemide [Demadex] 40 mg PO DAILY 03/06/24 03/06/24 History Allergies Allergy/AdvReac Type Severity Reaction Status Date / Time No Known Allergies Allergy Verified 03/06/24 20:24 Surgical - Exam Vital Signs Temp Pulse Resp BP Pulse Ox 97.0 F L 170 H 26 H 133/116 83 L 03/06/24 19:15 03/06/24 19:15 03/06/24 19:15 03/06/24 19:15 03/06/24 19:15 Results - Labs 03/06/24 19:15 03/07/24 08:51 Abnormal Lab Results - Last 24 Hours (Table) 03/06/24 03/06/24 03/06/24 Range/Units 19:15 19:15 19:15 MCHC 30.2 L (31.0-37.0) g/dL Neutrophils # 8.5 H (1.3-7.7) k/uL Lymphocytes # 0.5 L (1.0-4.8) k/uL PT 12.7 H (10.0-12.5) sec INR 1.2 H (<1.2) VBG pH (7.31-7.41) VBG pCO2 (37-51) mmHg Sodium (137-145) mmol/L Potassium 6.7 H* (3.5-5.1) mmol/L Carbon Dioxide 31 H (22-30) mmol/L BUN 34 H (9-20) mg/dL Creatinine 2.25 H (0.66-1.25) mg/dL Glucose 129 H (74-99) mg/dL Plasma Lactic Acid Aiden (0.7-2.0) mmol/L Calcium (8.4-10.2) mg/dL Magnesium 2.4 H (1.6-2.3) mg/dL Total Bilirubin 2.4 H (0.2-1.3) mg/dL Troponin I (0.000-0.034) ng/mL Total Protein 5.9 L (6.3-8.2) g/dL 03/06/24 03/06/24 03/06/24 Range/Units 19:15 19:15 19:42 MCHC (31.0-37.0) g/dL Neutrophils # (1.3-7.7) k/uL Lymphocytes # (1.0-4.8) k/uL PT (10.0-12.5) sec INR (<1.2) VBG pH 7.29 L (7.31-7.41) VBG pCO2 56 H (37-51) mmHg Sodium (137-145) mmol/L Potassium (3.5-5.1) mmol/L Carbon Dioxide (22-30) mmol/L BUN (9-20) mg/dL Creatinine (0.66-1.25) mg/dL Glucose (74-99) mg/dL Plasma Lactic Acid Aiden 3.3 H* (0.7-2.0) mmol/L Calcium (8.4-10.2) mg/dL Magnesium (1.6-2.3) mg/dL Total Bilirubin (0.2-1.3) mg/dL Troponin I 0.045 H* (0.000-0.034) ng/mL Total Protein (6.3-8.2) g/dL 03/07/24 03/07/24 03/07/24 Range/Units 00:20 04:30 08:51 MCHC (31.0-37.0) g/dL Neutrophils # (1.3-7.7) k/uL Lymphocytes # (1.0-4.8) k/uL PT (10.0-12.5) sec INR (<1.2) VBG pH (7.31-7.41) VBG pCO2 (37-51) mmHg Sodium 136 L (137-145) mmol/L Potassium (3.5-5.1) mmol/L Carbon Dioxide (22-30) mmol/L BUN 44 H (9-20) mg/dL Creatinine 3.00 H (0.66-1.25) mg/dL Glucose 194 H (74-99) mg/dL Plasma Lactic Acid Aiden (0.7-2.0) mmol/L Calcium 8.1 L (8.4-10.2) mg/dL Magnesium (1.6-2.3) mg/dL Total Bilirubin (0.2-1.3) mg/dL Troponin I 0.205 H* 0.311 H* (0.000-0.034) ng/mL Total Protein (6.3-8.2) g/dL Diabetes panel 03/06/24 03/07/24 Range/Units 19:15 08:51 Sodium 137 136 L (137-145) mmol/L Potassium 6.7 H* 4.9 (3.5-5.1) mmol/L Chloride 100 102 (98-107) mmol/L Carbon Dioxide 31 H 28 (22-30) mmol/L BUN 34 H 44 H (9-20) mg/dL Creatinine 2.25 H 3.00 H (0.66-1.25) mg/dL Glucose 129 H 194 H (74-99) mg/dL Calcium 8.5 8.1 L (8.4-10.2) mg/dL AST 47 (17-59) U/L ALT 29 (4-49) U/L Alkaline Phosphatase 43 (38-126) U/L Total Protein 5.9 L (6.3-8.2) g/dL Albumin 3.7 (3.5-5.0) g/dL Calcium panel 03/06/24 03/07/24 Range/Units 19:15 08:51 Calcium 8.5 8.1 L (8.4-10.2) mg/dL Albumin 3.7 (3.5-5.0) g/dL Pituitary panel 03/06/24 03/07/24 Range/Units 19:15 08:51 Sodium 137 136 L (137-145) mmol/L Potassium 6.7 H* 4.9 (3.5-5.1) mmol/L Chloride 100 102 (98-107) mmol/L Carbon Dioxide 31 H 28 (22-30) mmol/L BUN 34 H 44 H (9-20) mg/dL Creatinine 2.25 H 3.00 H (0.66-1.25) mg/dL Glucose 129 H 194 H (74-99) mg/dL Calcium 8.5 8.1 L (8.4-10.2) mg/dL Adrenal panel 03/06/24 03/07/24 Range/Units 19:15 08:51 Sodium 137 136 L (137-145) mmol/L Potassium 6.7 H* 4.9 (3.5-5.1) mmol/L Chloride 100 102 (98-107) mmol/L Carbon Dioxide 31 H 28 (22-30) mmol/L BUN 34 H 44 H (9-20) mg/dL Creatinine 2.25 H 3.00 H (0.66-1.25) mg/dL Glucose 129 H 194 H (74-99) mg/dL Calcium 8.5 8.1 L (8.4-10.2) mg/dL Total Bilirubin 2.4 H (0.2-1.3) mg/dL AST 47 (17-59) U/L ALT 29 (4-49) U/L Alkaline Phosphatase 43 (38-126) U/L Total Protein 5.9 L (6.3-8.2) g/dL Albumin 3.7 (3.5-5.0) g/dL Assessment and Plan Assessment: 1. Right groin pseudoaneurysm 2. Previous abdominal aortic aneurysm status post EVAR with aneurysmal dilation of common iliac vessels with at [facility] 3. Previous femorofemoral bypass with Dr. James 4. Atrial fibrillation 5. Acute hypoxic respiratory failure 6. Elevated troponins 7. Chronic kidney disease previously on dialysis Plan: Due to patient's extensive vascular history and previous surgeries done at [facility] with Dr. James recommend transfer to higher level of care for further evaluation and treatment of pseudoaneurysm and previous abdominal aortic aneurysm status post EVAR with stent with aneurysmal dilation especially in light of patient's multiple comorbidities. Primary medical team noted fight. This was discussed with patient and family at the bedside who are agreeable with transfer. Thank you for this consultation. The impression and plan of care has been dictated as directed. I performed a history and examination of this patient, discussed the same with the dictator. I agree with the dictator's note ,documented as a scribe. Any additional findings or plans will be noted.
--- NOTE | 2024-03-07 12:55 | P.PN ---
Progress Note - Text Progress Note Date: 03/07/24 Patient was seen. Please refer to H&P for complete details. Discussed with Maritza MOYA with Vascular surgery. R groin US shows pseudoaneurysm 4.6 x 3.1 cm. They are recommending transfer to [facility] for evaluation by Dr. James due to his extensive vascular history. Family is agreeable. I will attempt to call [facility] for transfer.
--- NOTE | 2024-03-07 14:33 | P.CNPUL ---
History of Present Illness Consult date: 03/07/24 Reason for consult: dyspnea History of present illness: This is a consultation for this 78-year-old male patient presented to the hospital because of worsening shortness of breath. The patient was found to be in atrial fibrillation with rapid ventricular response. The patient was also found to be hypoxic and the patient did is currently on 5 L of oxygen by nasal cannula and a chest x-ray shows increased bilateral pulmonary filtrates right more than left and there is some increased haziness along the right lung which could be related to an atypical or asymmetric pulmonary edema versus right-sided pleural effusion. Possibility of a right lung pneumonia cannot be completely excluded as the patient is having increased cough and congestion. Nevertheless, the patient's white cell count at 9.9, hemoglobin 14.2 and a platelet count is at 151. Electrolytes show a BUN of 34 with a creatinine of 2.2 with a creatinine is currently up to 3 and a potassium initially 6.7 currently down to 4.9. Sodium is at 137 and currently down to 136. Glucose is 129. Calcium level is at 8.5. Troponins were positive at 0.04 and 0.3 and a proBNP level is 26,200. Total protein is 5.9 with an albumin of 3.7. On a separate note, the patient was complaining of groin pain. Further investigation with an ultrasound of the right groin reveals a 4.6 x 3.1 cm pseudoaneurysm in the right groin and this is obviously palpable and the area is bulging above the skin. There is also evidence of a vascular bypass surgery, and possibly a femorofemoral bypass graft noted in his pelvic area with a positive thrill. The patient currently is resting comfortably in bed. Denies having any significant shortness of breath. He was started on a combination Rocephin and Zithromax. On DuoNeb the regiment [id number]. He was also started on a prednisone burst taper starting with 40 mg p.o. daily. A final decision on admission has not been made as the p atient is being considered for transfer to another facility, possibly [facility] for [facility] regarding his right groin pseudoaneurysm. The patient also has history of coronary artery disease with multiple coronary stents in the past, peripheral vascular disease, abdominal aortic aneurysm status post endovascular stent grafting and the patient has chronic kidney disease and earlier this year, the patient was placed on hemodialysis and he was on hemodialysis for few months and currently is off dialysis and he was told that he does not require dialysis anymore. During this current admission, his potassium level was elevated and creatinine is also elevated. In regards to his atrial fibrillation, the patient was placed on a Cardizem drip for rate control. Previous echocardiogram from 09/11/2023 shows a ejection fraction of 50 to 55% with mild increase in the left ventricular wall thickness and moderate to severe biatrial enlargement and mild right ventricular dilatation. Cardiac Lexiscan that was done April 2023 showed a fixed inferior wall defect and a small size apical perfusion defect concerning of an underlying ischemia. Several consultants have already been involved in his care including cardiology and nephrology. He is a chronic smoker. His increased troponin level was considered to be related to A-fib, RVR and type II myocardial ischemia. He is free of any chest pain for now. Cardizem drip has been discontinued and the patient was started on a combination of Coreg for rate control and anticoagulation with Eliquis. Review of Systems Constitutional: Reports poor appetite, Reports weakness Eyes: denies as per HPI, denies blurred vision, denies bulging eye, denies decreased vision, denies diplopia, denies discharge, denies dry eye, denies irritation, denies itching, denies pain, denies photophobia, denies loss of peripheral vision, denies loss of vision, denies tunnel vision/blind spots Ears: deny: decreased hearing, ear discharge, earache, tinnitus Ears, nose, mouth and throat: Reports as per HPI Breasts: absent: as per HPI, gynecomastia Cardiovascular: Reports decreased exercise tolerance, Reports irregular heart beat, Reports palpitations, Reports rapid heart beat, Reports shortness of breath Respiratory: Reports cough, Reports dyspnea, Reports excessive sputum Gastrointestinal: Reports as per HPI Genitourinary: Reports as per HPI Musculoskeletal: Reports as per HPI Musculoskeletal: right: ankle swelling Integumentary: Reports as per HPI Neurological: Reports as per HPI Psychiatric: Reports as per HPI Hematologic/Lymphatic: Reports as per HPI Allergic/Immunologic: Reports as per HPI Past Medical History Past Medical History: Atrial Fibrillation, Coronary Artery Disease (CAD), Deep Vein Thrombosis (DVT), GERD/Reflux, Hearing Disorder / Deafness, Hyperlipidemia, Osteoarthritis (OA), Prostate Disorder, Renal Disease, Sleep Apnea/CPAP/BIPAP, Vascular Disorder Additional Past Medical History / Comment(s): DVT Last Myocardial Infarction Date:: UNKNOWN History of Any Multi-Drug Resistant Organisms: None Reported Past Surgical History: Heart Catheterization With Stent Additional Past Surgical History / Comment(s): Femoral bypass right and left, removed steel from right lung and retired up diaphram, right above knee amputee Past Anesthesia/Blood Transfusion Reactions: No Reported Reaction Date of Last Stent Placement:: UNKNOWN Past Psychological History: Depression, PTSD Smoking Status: Former smoker Past Alcohol Use History: None Reported Past Drug Use History: None Reported - Past Family History Mother Family Medical History: Myocardial Infarction ([place]) Father Family Medical History: Dementia Medications and Allergies Home Medications Medication Instructions Recorded Confirmed Type Cholecalciferol [Vitamin D3 (25 25 mcg PO DAILY 09/02/23 03/06/24 History Mcg = 1000 Iu)] Tamsulosin [Flomax] 0.4 mg PO DAILY 09/02/23 03/06/24 History Calcium Acetate [PhosLo] 667 mg PO BID-W/MEALS tab 09/12/23 03/06/24 Rx Isosorbide Mononitrate ER [Imdur] 30 mg PO DAILY 09/17/23 03/06/24 History amLODIPine [Norvasc] 10 mg PO DAILY 09/17/23 03/06/24 History hydrALAZINE HCL [Apresoline] 100 mg PO TID 09/17/23 03/06/24 History carvediloL [Coreg*] 12.5 mg PO BID-W/MEALS #0 tab 09/21/23 03/06/24 Rx Apixaban [Eliquis] 5 mg PO BID 10/31/23 03/06/24 History Atorvastatin [Lipitor] 10 mg PO HS 03/06/24 03/06/24 History Sennosides [Senokot] 17.2 mg PO HS 03/06/24 03/06/24 History Torsemide [Demadex] 40 mg PO DAILY 03/06/24 03/06/24 History Allergies Allergy/AdvReac Type Severity Reaction Status Date / Time No Known Allergies Allergy Verified 03/06/24 20:24 Physical Exam Vitals: Vital Signs Temp Pulse Resp BP Pulse Ox 03/07/24 11:23 94 18 03/07/24 11:15 94 16 03/07/24 11:00 92 20 124/79 93 L 03/07/24 10:00 98 20 91 L 03/07/24 09:00 90 20 94 L 03/07/24 08:47 94 20 92 L 03/07/24 08:07 92 L 03/07/24 07:41 86 18 111/69 94 L 03/07/24 06:00 87 18 111/69 91 L 03/07/24 04:00 89 14 126/84 94 L 03/07/24 03:00 95 03/07/24 02:05 98.1 F 86 16 123/85 91 L 03/07/24 00:00 63 14 126/83 93 L 03/06/24 22:21 97 20 146/84 98 03/06/24 21:03 98 16 143/85 97 03/06/24 20:27 100 03/06/24 20:17 104 H 03/06/24 19:48 20 03/06/24 19:45 103 H 20 135/81 87 L 03/06/24 19:30 138 H 24 131/93 84 L 03/06/24 19:15 97.0 F L 137 H 21 133/116 83 L Intake and Output 03/06/24 03/07/24 03/07/24 22:59 06:59 14:59 Other: Weight 65.771 kg Gen: in no apparent distress, resting comfortably in bed, the patient is currently 5 L O2 nasal cannula Eyes: PERRL, no scleral injection or icterus Head exam was generally normal. There was no scleral icterus or corneal arcus. Mucous membranes were moist. Neck: no tracheal deviation, full range of motion Resp: Diminished breath sounds along with scattered rhonchi and crackles in the right lung compared to the left. CVS: good distal perfusion x 4, bilateral pitting edema, irregular rhythm consistent with atrial fibrillation. Overall heart sounds are quite distant at this point in time. The patient also has a palpable pseudoaneurysm in his right temporal area. GI: soft, NTTP, ND, no hepatosplenomegaly : no suprapubic tenderness, no CVAT, monae catheter not present MSK: no clubbing, no cyanosis, no noted contractures of extremities, and the patient has an above-knee amputation right lower extremity. Pulses lower extremity on the left is quite diminished. Skin: no noted rashes, petechiae; temperature of skin is appropriate Neuro: moving all extremities without signs of weakness, CN II-XII intact Psych: cooperative, euthymic mood, insight and judgment intact Results - Laboratory Findings CBC and BMP: 03/06/24 19:15 03/07/24 08:51 PT/INR, D-dimer PT 12.7 sec (10.0-12.5) H 03/06/24 19:15 INR 1.2 (<1.2) H 03/06/24 19:15 Abnormal lab findings: Abnormal Labs 03/06/24 03/06/24 03/06/24 19:15 19:15 19:15 MCHC 30.2 L Neutrophils # 8.5 H Lymphocytes # 0.5 L PT 12.7 H INR 1.2 H VBG pH VBG pCO2 Sodium Potassium 6.7 H* Carbon Dioxide 31 H BUN 34 H Creatinine 2.25 H Glucose 129 H Plasma Lactic Acid Aiden Calcium Magnesium 2.4 H Total Bilirubin 2.4 H Troponin I Total Protein 5.9 L 03/06/24 03/06/24 03/06/24 19:15 19:15 19:42 MCHC Neutrophils # Lymphocytes # PT INR VBG pH 7.29 L VBG pCO2 56 H Sodium Potassium Carbon Dioxide BUN Creatinine Glucose Plasma Lactic Acid Aiden 3.3 H* Calcium Magnesium Total Bilirubin Troponin I 0.045 H* Total Protein 03/07/24 03/07/24 03/07/24 00:20 04:30 08:51 MCHC Neutrophils # Lymphocytes # PT INR VBG pH VBG pCO2 Sodium 136 L Potassium Carbon Dioxide BUN 44 H Creatinine 3.00 H Glucose 194 H Plasma Lactic Acid Aiden Calcium 8.1 L Magnesium Total Bilirubin Troponin I 0.205 H* 0.311 H* Total Protein Assessment and Plan Plan: Acute hypoxic respiratory failure, suspect volume overload/CHF with development of bilateral pleural effusion right more than left with asymmetric pulmonary edema versus right lung pneumonia. The patient is currently on 4 L of oxygen nasal cannula. No significant leukocytosis. No significant hypotension. Currently on a combination of Rocephin and Zithromax. Chronic atrial fibrillation presenting with A-fib with RVR Abnormal troponins rule out non-ST segment elevation myocardial infarction versus type II myocardial ischemia second A-fib and RVR Chronic kidney disease stage III with previous need for hemodialysis. 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 Continue DuoNeb nebulized treatments [id number] and prednisone burst taper Continue Rocephin and Zithromax Nephrology consultation reevaluate the need for hemodialysis Cardiology consultation regarding his chronic atrial fibrillation. Rate is controlled and the patient is currently on Coreg and anticoagulation with Eliquis. Vascular surgery consultation regarding the pseudoaneurysm in his right groin Resume home medications Obviously, condition is quite complicated and the patient is chronic debilitated due to the above-mentioned comorbidities. Will continue to follow and make further recommendations based on his overall progress.
[2024-03-07] MEDS ORDERED: ATORVASTATIN 20 MG TAB PO SCH (21:00)
[2024-03-07] MEDS: ATORVASTATIN 40 MG TAB PO SCH (21:20)
[2024-03-08 07:36] LABS: African American GFR (CKD) 15 (>60 ml/min/1.73 sqM); Anion Gap 5 mmol/L; Blood Urea Nitrogen 67 mg/dL (9-20); Calcium 8.2 mg/dL (8.4-10.2); Carbon Dioxide 29 mmol/L (22-30); Chloride 97 mmol/L (98-107); Glucose 108 mg/dL (74-99); Magnesium 2.3 mg/dL (1.6-2.3); Non-African American GFR(CKD) 13 (>60 ml/min/1.73 sqM); Potassium 5.1 mmol/L (3.5-5.1); Sodium 131 mmol/L (137-145)
[2024-03-08 07:52] LABS: HCT 37.3 % (39.0-53.0); HGB 11.7 gm/dL (13.0-17.5); Hypochromasia Moderate; MCH 28.4 pg (25.0-35.0); MCHC 31.5 g/dL (31.0-37.0); MCV 90.2 fL (80.0-100.0); Mean Platelet Volume 9.1; Platelet Count 135 k/uL (150-450); RBC 4.13 m/uL (4.30-5.90); RDW 14.5 % (11.5-15.5); WBC 11.1 k/uL (3.8-10.6)
--- NOTE | 2024-03-08 10:28 | P.PN ---
Subjective Patient is seen in follow-up for acute kidney injury on chronic kidney disease. Renal function worse with creatinine 4.19 today. Demadex stopped yesterday. Urine output low. Vital signs are stable. General: No acute distress. HEENT: Head exam is unremarkable. On nasal cannula. LUNGS: No audible rhonchi or wheezes. HEART: Rate and Rhythm are regular. ABDOMEN: Nontender. EXTREMITITES: No edema. AKA noted. Objective - Vital Signs Vital signs: Vital Signs Temp 97.6 F 03/08/24 08:00 Pulse 80 03/08/24 08:05 Resp 18 03/08/24 08:05 BP 114/74 03/08/24 08:00 Pulse Ox 92 L 03/08/24 08:00 FiO2 Intake & Output 03/07/24 03/08/24 03/08/24 18:59 06:59 18:59 Intake Total 138 1120 Output Total 50 Balance 138 1070 Weight 65.771 kg 88.5 kg Intake: IV 20 40 Invasive Line 1 10 20 Invasive Line 2 10 20 Oral 118 1080 Output: Urine 50 Other: Voiding Method Urinal Urinal Urinal - Labs CBC & Chem 7: 03/08/24 07:30 03/08/24 06:57 Labs: Abnormal Lab Results - Last 24 Hours (Table) 03/07/24 03/08/24 03/08/24 Range/Units 08:51 06:57 07:30 WBC 11.1 H (3.8-10.6) k/uL RBC 4.13 L (4.30-5.90) m/uL Hgb 11.7 L (13.0-17.5) gm/dL Hct 37.3 L (39.0-53.0) % Plt Count 135 L (150-450) k/uL Sodium 131 L (137-145) mmol/L Chloride 97 L (98-107) mmol/L BUN 67 H (9-20) mg/dL Creatinine 4.19 H (0.66-1.25) mg/dL Glucose 108 H (74-99) mg/dL Calcium 8.2 L (8.4-10.2) mg/dL Procalcitonin 2.12 H (0.02-0.50) ng/mL Assessment and Plan Plan: Assessment: 1. Acute kidney injury secondary to hemodynamic ATN. Creatinine 2.25 on admission and is 4.19 today. History of hemodialysis dependent acute kidney injury. Has been off dialysis for a few months now. Ultrasound from October 2023 showed no evidence of hydronephrosis. 2. Right groin pseudoaneurysm. Awaits transfer to [facility] per vascular surgery. 3. Coronary disease with stents. 4. Hyperkalemia secondary to acute kidney injury. Hemolyzed sample. Medically treated. Better. 5. Hypertension with chronic kidney disease. Controlled. 6. Chronic diastolic CHF. 7. History of AAA with stent placement. 8. Pneumonia on antibiotics. 9. Chronic kidney disease stage IV. 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 Establish baseline renal function. 10. NSTEMI. Cardiology following. 11. A-fib with RVR status post Cardizem drip. On Coreg. Plan: Start normal saline at 75 cc an hour. Continue to hold diuretics. Hold amlodipine for systolic blood pressure less than 120. Bladder scan negative for urinary retention. Continue to monitor renal function and urine output. Follow-up renal ultrasound. Avoid nephrotoxins. Continue to monitor renal function and urine output. Continue to assess daily for need for renal replacement therapy.
--- NOTE | 2024-03-08 11:17 | P.PN ---
Subjective HISTORY OF PRESENT ILLNESS: This is a 78-year-old male patient of Dr. Siegel with past medical history of right [id number] amputation, persistent atrial fibrillation on Eliquis, hypertension, hyperlipidemia, coronary artery disease with multiple stents in the past, PAD with abdominal aortic aneurysm status post EVAR with additional PAD, end-stage renal disease previously on hemodialysis. We have been asked to evaluate the patient for atrial fibrillation. Patient states he came into the hospital due to shortness of breath. He states his last hemodialysis was 3 to 4 months ago he states that he was told he did not require it any longer. Patient does have a cough which she states he always has and is about the same. No fever, no chest pain, no palpitations, no dizziness no syncopal episodes. He denies any nausea or vomiting, no blood in his stool or urine, no history of stroke or seizure. Patient is an active smoker on and off. Patient was found to be in A-fib with RVR and was started on Cardizem drip at 5 mg/h. He is status post 2 L of IV fluid, Lokelma also started on COPD medications. Patient also noted to have a large mass in the right groin for which we ordered an ultrasound which came back as pseudoaneurysm and we have added in a consult with vascular surgery and recommendations are for transfer to tertiary care. Regarding this mass, he states he has had it for about 2 to 3 weeks. Blood pressure 111/69, heart rate 86, pulse ox 94%. EKG: Atrial fibrillation at 153 bpm Chest x-ray: #1 negative for acute finding. #2 hazy density in the right hemithorax Laboratory studies: WBC 9.9, hemoglobin 14.2, hemoglobin 151. INR 1.2. Initial potassium 6.7 now 4.9, sodium 136, BUN 44 creatinine 3. Troponins 0.045, 0.205, 0.311. Lactic acid 3.3 and repeat 1.5, magnesium 2.4. Home cardiac medications: Amlodipine 10 mg daily, Eliquis 5 mg twice daily, atorvastatin 10 mg at bedtime, Coreg 12.5 mg twice daily, hydralazine 100 mg 3 times daily, Imdur 30 mg daily, torsemide 40 mg daily. Echocardiogram performed on 09/11/2023 reveals EF of 50 to 55%, mildly increased left ventricular wall thickness, moderate to severe biatrial enlargement, mild right ventricular dilation, trace mitral regurgitation, no pericardial effusion. Lexiscan Cardiolite stress test performed 04/2023 revealed fixed inferior defect likely consistent with prior infarct as well as small sized apical perfusion defect concerning for ischemia. Plan for medical therapy. 03/08/2024 Patient examined this morning at the bedside. Patient's family is present. Patient currently denies chest pain or pressure. He denies shortness of breath. Telemetry reveals atrial fibrillation with a heart rate in the 80s. Vital signs are stable. Blood pressure 114/74. PHYSICAL EXAM: VITAL SIGNS: Reviewed. GENERAL: Well-developed in no acute distress. NECK: Supple. No JVD or thyromegaly LUNGS: Respirations even and unlabored. Lungs with expiratory wheezing noted. HEART: Irregular rate and rhythm. S1 and S2 heard. Right firm mass noted to right groin. EXTREMITIES: Normal range of motion. No clubbing or cyanosis. Peripheral pulses intact. Right [id number] amputation. ASSESSMENT: Pseudoaneurysm right groin Elevated troponins, type II NSTEMI secondary to lactic acidosis, COPD exacerbation COPD exacerbation Persistent atrial fibrillation on Eliquis Hypertension Hyperlipidemia Coronary artery disease with previous stenting Previous abdominal aortic aneurysm status post EVAR with aneurysmal dilation of common iliac vessels with Dr. James at [facility] Previous femorofemoral bypass End-stage renal disease recently stopped hemodialysis Nicotine dependence PLAN: Continue current cardiac medications Continue telemetry monitoring. Continue to monitor blood pressure. Plan for transfer to [facility]. Patient is awaiting bed assignment. Further recommendations pending patient course Nurse practitioner note has been reviewed by physician. Signing provider agrees with the documented findings, assessment, and plan of care documented by VAT OPERATOR as a scribe. Objective - Vital Signs Vital signs: Vital Signs Temp 97.6 F 03/08/24 08:00 Pulse 80 03/08/24 08:05 Resp 18 03/08/24 08:05 BP 114/74 03/08/24 08:00 Pulse Ox 92 L 03/08/24 08:00 FiO2 Intake & Output 03/07/24 03/08/24 03/08/24 18:59 06:59 18:59 Intake Total 138 1120 Output Total 50 Balance 138 1070 Weight 65.771 kg 88.5 kg Intake: IV 20 40 Invasive Line 1 10 20 Invasive Line 2 10 20 Oral 118 1080 Output: Urine 50 Other: Voiding Method Urinal Urinal Urinal - Labs CBC & Chem 7: 03/08/24 07:30 03/08/24 06:57 Labs: Abnormal Lab Results - Last 24 Hours (Table) 03/07/24 03/08/24 03/08/24 Range/Units 08:51 06:57 07:30 WBC 11.1 H (3.8-10.6) k/uL RBC 4.13 L (4.30-5.90) m/uL Hgb 11.7 L (13.0-17.5) gm/dL Hct 37.3 L (39.0-53.0) % Plt Count 135 L (150-450) k/uL Sodium 131 L (137-145) mmol/L Chloride 97 L (98-107) mmol/L BUN 67 H (9-20) mg/dL Creatinine 4.19 H (0.66-1.25) mg/dL Glucose 108 H (74-99) mg/dL Calcium 8.2 L (8.4-10.2) mg/dL Procalcitonin 2.12 H (0.02-0.50) ng/mL
--- NOTE | 2024-03-08 11:49 | P.PN ---
Subjective Progress Note Date: 03/08/24 78-year-old male with a PMH of COPD, ESRD previously on hemodialysis, diastolic CHF, paroxysmal A-fib on Eliquis, peripheral arterial disease status post right AKA, h/o AAA status post EVAR, h/o fem-fem bypass, hypertension, and hyperlipidemia who presented to the emergency room with complaints of shortness of breath and a right groin mass. In the ED he underwent extensive evaluation. BP 133/116, HR 170, T 97F, RR 26, 83% on 6L NC. CBC, Coag panel, CMP significant for PT 12.7, INR 1.2, K 6.7, bicarb 31, BUN 34, Cr 2.25, glu 129, T. Bili 2.4, total protein 5.9. Lactic acid 3.3. Mag 2.4. Procal 2.12. BNP 26921. Troponin 0.045, 0.205, 0.311 with EKG showing AFib with RVR. CXR showed right lower lung zone opacity PNA versus pleural effusion. Patient was started on a Cardizem infusion, 2L NS bolus + maintainance fluids and admitted for further evaluation. Started on Rocephin and Azithromycin for concerns for PNA. Nephrology, Cardiology, Pulmonary consulted. Nephrology recommended Hep-Lock IV fluids and hold off on diuretics at this time. Cardiology increased his Coreg and Cardizem drip was able to be weaned off, elevated Troponins attributed to type II NSTEMI. Pulmonary optimized his bronchodilators and steroids. Vascular surgery consulted for right groin mass, US ordered which showed pseudoaneurysm in the right groin 4.6 x 3.1. Patient has had most of his Vascular procedures done by Dr. James at [facility] and given his complexity of vascular issues recommendation was made to transfer the patient to [facility]. 03/08 Patient was seen and examined. He reports no complaints. Currently 94% on 4L. CBC, BMP done today significant for WBC 11.1, RBC 4.13, Hg 11.7, Hct 37.3, Plt 135, Na 132, Cl 97, BUN 67, Cr 4.19, glu 108, Ca 8.2. Mag 2.3. CXR done yesterday shows increase in the size of the right lower lung opacity. Currently on Rocephin/Azithromycin for PNA. Nephrology recommends starting NS at 75 cc/hr. General: non toxic, no distress, appears at stated age, 3L NC Derm: warm, dry Head: atraumatic, normocephalic, symmetric Eyes: EOMI, no lid lag, anicteric sclera Mouth: no lip lesion, mucus membranes moist Cardiovascular: S1S2 reg, no murmur Lungs: Dereased BS BL, rhonchi R>L, no accessory muscle use Abd: Non distended. Non tender to palpation Ext: no gross muscle atrophy, no edema, no contractures, RLE AKA Neuro: no focal neuro deficits Psych: Alert, oriented, appropriate affect Based on my assessment of this patient, this patient meets a high complexity level of care. Acute hypoxic respiratory failure: Multifactorial. Volume overload from CKD worsened with A-Fib RVR versus PNA. Atrial fibrillation with RVR: AC with Eliquis 5 mg PO BID. Coreg 25 mg PO BID. Sepsis due to Pneumonia: Rocephin 2g IV QD. Azithromycin 500 mg IV QD. Procal elevated. Follow up BCx, Sputum Cx, Legionella Ag. COVID/RSV/Flu ordered. Type II NSTEMI likely due to A-Fib with RVR and sepsis Pseudoaneurysm right groin: Attempt to transfer to [facility] per Vascular Surgery. Acute COPD exacerbation: DuoNeb QID scheduled and PRN for SOB/wheezing. Prednisone 40 mg PO QD. Acute kidney injury on CKD stage IV: Nephrology started the patient on NS at 75 cc/hr today. Resolved: Hyperkalemia, Lactic acidosis Patient accepted for transfer to [facility] by Dr. Flores pending bed availability. CODE STATUS: FULL CODE DVT Prophylaxis: Eliquis GI Prophylaxis: Designated medical POA if patient is not able to make medical decisions for themselves: I have reviewed the following it solutions sales consultant notes: Nephrology, Cardiology, Pulmonary I have reviewed the results of the following tests: CBC, BMP, Mag. I have ordered the following tests: CBC, BMP, Mag tomorrow. RSV/COVID/Flu. I have discussed the care of this patient with the following independent historian: Transfer center at [facility]. I have independently interpreted the following test below: CXR 03/07 I have discussed the management of this patient with the following physician: Objective - Vital Signs Vital signs: Vital Signs Temp 97.9 F 03/08/24 03:23 Pulse 85 03/08/24 03:23 Resp 18 03/08/24 03:23 BP 123/87 03/08/24 03:23 Pulse Ox 94 L 03/08/24 03:23 FiO2 Intake & Output 03/07/24 03/08/24 03/08/24 18:59 06:59 18:59 Intake Total 138 1120 Output Total 50 Balance 138 1070 Weight 65.771 kg 88.5 kg Intake: IV 20 40 Invasive Line 1 10 20 Invasive Line 2 10 20 Oral 118 1080 Output: Urine 50 Other: Voiding Method Urinal Urinal - Labs CBC & Chem 7: 03/08/24 07:30 03/08/24 06:57 Labs: Abnormal Lab Results - Last 24 Hours (Table) 03/07/24 03/07/24 Range/Units 08:51 08:51 Sodium 136 L (137-145) mmol/L BUN 44 H (9-20) mg/dL Creatinine 3.00 H (0.66-1.25) mg/dL Glucose 194 H (74-99) mg/dL Calcium 8.1 L (8.4-10.2) mg/dL Procalcitonin 2.12 H (0.02-0.50) ng/mL
--- NOTE | 2024-03-08 13:00 | US ---
EXAMINATION TYPE: US kidneys/renal and bladder DATE OF EXAM: 03/08/2024 COMPARISON: 11/01/23 CLINICAL INDICATION: Male, 78 years old with history of nakita; EXAM MEASUREMENTS: Right Kidney: 11.2 x 6.1 x 5.3 cm Left Kidney: 8.5 x 4.7 x 3.4 cm Pt had difficulty getting into decubitus position -- limited exam Right Kidney: Limited visualization due to overlying bowel gas Left Kidney: Cystic area measuring 3.0 x 3.5 x 2.8cm Bladder: Area imaged There is no evidence for hydronephrosis at this point in time. No nephrolithiasis is seen. No helen s are identified. IMPRESSION: 1. Limited evaluation of the right kidney due to bowel gas. 2. No hydronephrosis or renal calcification. 3. Redemonstration of a left cortical cyst. 4. Thinning of the left renal cortex consistent with moderate to marked left renal atrophy. [facility], Workstation: MICHEL 03/08/2024 12:58 PM
--- NOTE | 2024-03-08 14:01 | P.PN ---
Subjective Progress Note Date: 03/08/24 This is a consultation for this 78-year-old male patient presented to the hospital because of worsening shortness of breath. The patient was found to be in atrial fibrillation with rapid ventricular response. The patient was also found to be hypoxic and the patient did is currently on 5 L of oxygen by nasal cannula and a chest x-ray shows increased bilateral pulmonary filtrates right more than left and there is some increased haziness along the right lung which could be related to an atypical or asymmetric pulmonary edema versus right-sided pleural effusion. Possibility of a right lung pneumonia cannot be completely excluded as the patient is having increased cough and congestion. Nevertheless, the patient's white cell count at 9.9, hemoglobin 14.2 and a platelet count is at 151. Electrolytes show a BUN of 34 with a creatinine of 2.2 with a creatinine is currently up to 3 and a potassium initially 6.7 currently down to 4.9. Sodium is at 137 and currently down to 136. Glucose is 129. Calcium level is at 8.5. Troponins were positive at 0.04 and 0.3 and a proBNP level is 26,200. Total protein is 5.9 with an albumin of 3.7. On a separate note, the patient was complaining of groin pain. Further investigation with an ultrasound of the right groin reveals a 4.6 x 3.1 cm pseudoaneurysm in the right groin and this is obviously palpable and the area is bulging above the skin. There is also evidence of a vascular bypass surgery, and possibly a femorofemoral bypass graft noted in his pelvic area with a positive thrill. The patient currently is resting comfortably in bed. Denies having any significant shortness of breath. He was started on a combination Rocephin and Zithromax. On DuoNeb the regiment [id number]. He was also started on a prednisone burst taper starting with 40 mg p.o. daily. A final decision on admission has not been made as the patient is being considered for transfer to another facility, possibly [facility] regarding his right groin pseudoaneurysm. The patient also has history of coronary artery disease with multiple coronary stents in the past, peripheral vascular disease, abdominal aortic aneurysm status post endovascular stent grafting and the patient has chronic kidney disease and earlier this year, the patient was placed on hemodialysis and he was on hemodialysis for few months and currently is off dialysis and he was told that he does not require dialysis anymore. During this current admission, his potassium level was elevated and creatinine is also elevated. In regards to his atrial fibrillation, the patient was placed on a Cardizem drip for rate control. Previous echocardiogram from 09/11/2023 shows a ejection fraction of 50 to 55% with mild increase in the left ventricular wall thickness and moderate to severe biatrial enlargement and mild right ventricular dilatation. Cardiac Lexiscan that was done April 2023 showed a fixed inferior wall defect and a small size apical perfusion defect concerning of an underlying ischemia. Several consultants have already been involved in his care including cardiology and nephrology. He is a chronic smoker. His increased troponin level was considered to be related to A-fib, RVR and type II myocardial ischemia. He is free of any chest pain for now. Cardize m drip has been discontinued and the patient was started on a combination of Coreg for rate control and anticoagulation with Eliquis. On 03/08/2024, patient is being seen in follow-up. The patient is calm and comfortable, remains on 40 of oxygen by nasal cannula with pulse ox of 92%. The patient has no specific complaints. Urine output is quite diminished and the patient's renal function from today shows interval worsening in renal function with a BUN of 67 and creatinine of 4.1. Sodium levels at 131 and the potassium level is at 5.1. Procalcitonin is elevated at 2.12. Nevertheless, there is no clear indication for underlying pneumonia and sepsis. The chest x-ray findings are probably due to CHF and fluid overload and asymmetric pulmonary edema. WBC count 11.1, hemoglobin 11.7. Nephrology is on the case and Demadex was stopped yesterday and urine output remains low. The patient was started on IV fluids with normal citrate of 75 cc an hour. Bladder scan was negative for urine retention. Ultrasound of the kidneys was ordered. Will continue to follow. May be candidate for renal replacement therapy. At the same time, the patient is being considered for transfer to [facility] regarding the pseudoaneurysm that has been noted earlier. Objective - Vital Signs Vital signs: Vital Signs Temp 97.9 F 03/08/24 03:23 Pulse 85 03/08/24 03:23 Resp 18 03/08/24 03:23 BP 123/87 03/08/24 03:23 Pulse Ox 94 L 03/08/24 03:23 FiO2 Intake & Output 03/07/24 03/08/24 03/08/24 18:59 06:59 18:59 Intake Total 138 1120 Output Total 50 Balance 138 1070 Weight 65.771 kg 88.5 kg Intake: IV 20 40 Invasive Line 1 10 20 Invasive Line 2 10 20 Oral 118 1080 Output: Urine 50 Other: Voiding Method Urinal Urinal - Exam Gen: in no apparent distress, resting comfortably in bed, the patient is currently 5 L O2 nasal cannula Eyes: PERRL, no scleral injection or icterus Head exam was generally normal. There was no scleral icterus or corneal arcus. Mucous membranes were moist. Neck: no tracheal deviation, full range of motion Resp: Diminished breath sounds along with scattered rhonchi and crackles in the right lung compared to the left. CVS: good distal perfusion x 4, bilateral pitting edema, irregular rhythm consistent with atrial fibrillation. Overall heart sounds are quite distant at this point in time. The patient also has a palpable pseudoaneurysm in his right temporal area. GI: soft, NTTP, ND, no hepatosplenomegaly : no suprapubic tenderness, no CVAT, monae catheter not present MSK: no clubbing, no cyanosis, no noted contractures of extremities, and the patient has an above-knee amputation right lower extremity. Pulses lower extremity on the left is quite diminished. Skin: no noted rashes, petechiae; temperature of skin is appropriate Neuro: moving all extremities without signs of weakness, CN II-XII intact Psych: cooperative, euthymic mood, insight and judgment intact - Labs CBC & Chem 7: 03/08/24 07:30 03/08/24 06:57 Labs: Abnormal Lab Results - Last 24 Hours (Table) 03/07/24 03/07/24 03/08/24 Range/Units 08:51 08:51 06:57 WBC (3.8-10.6) k/uL RBC (4.30-5.90) m/uL Hgb (13.0-17.5) gm/dL Hct (39.0-53.0) % Plt Count (150-450) k/uL Sodium 136 L 131 L (137-145) mmol/L Chloride 97 L (98-107) mmol/L BUN 44 H 67 H (9-20) mg/dL Creatinine 3.00 H 4.19 H (0.66-1.25) mg/dL Glucose 194 H 108 H (74-99) mg/dL Calcium 8.1 L 8.2 L (8.4-10.2) mg/dL Procalcitonin 2.12 H (0.02-0.50) ng/mL 03/08/24 Range/Units 07:30 WBC 11.1 H (3.8-10.6) k/uL RBC 4.13 L (4.30-5.90) m/uL Hgb 11.7 L (13.0-17.5) gm/dL Hct 37.3 L (39.0-53.0) % Plt Count 135 L (150-450) k/uL Sodium (137-145) mmol/L Chloride (98-107) mmol/L BUN (9-20) mg/dL Creatinine (0.66-1.25) mg/dL Glucose (74-99) mg/dL Calcium (8.4-10.2) mg/dL Procalcitonin (0.02-0.50) ng/mL Assessment and Plan Plan: Acute hypoxic respiratory failure, suspect volume overload/CHF with development of bilateral pleural effusion right more than left with asymmetric pulmonary edema versus right lung pneumonia. The patient is currently on 4 L of oxygen nasal cannula. No significant leukocytosis. No significant hypotension. Currently on a combination of Rocephin and Zithromax. Overall oxygenation and respiratory status remains unchanged compared to yesterday Chronic atrial fibrillation presenting with A-fib with RVR, rates under better c ontrol and the patient is on anticoagulants. Abnormal troponins rule out non-ST segment elevation myocardial infarction versus type II myocardial ischemia second A-fib and RVR Chronic kidney disease stage III with previous need for hemodialysis. The patient has been off dialysis for few weeks being monitored by nephrology. The patient has developed an acute kidney injury on top of chronic renal failure. Patient is currently off Demadex and the patient is being given IV fluids. 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 Continue DuoNeb nebulized treatments [id number] and prednisone burst taper Continue Rocephin and Zithromax Nephrology consultation reevaluate the need for hemodialysis IV fluids at 75 cc an hour of normal saline Monitor renal function Consider renal replacement therapy based on the progression of the renal failure Cardiology consultation regarding his chronic atrial fibrillation. Rate is controlled and the patient is currently on Coreg and anticoagulation with Eliquis. Vascular surgery consultation regarding the pseudoaneurysm in his right groin, likely transfer to [facility] regarding the pseudoaneurysm Obviously, condition is quite complicated and the patient is chronic debilitated due to the above-mentioned comorbidities. Will continue to follow and make further recommendations based on his overall progress.
[2024-03-08] MEDS: SODIUM CHLORIDE 0.9% 1,000 ML IV SCH (16:41)
[2024-03-09 07:36] LABS: HCT 39.8 % (39.0-53.0); HGB 12.4 gm/dL (13.0-17.5); Hypochromasia Moderate; MCH 28.2 pg (25.0-35.0); MCHC 31.2 g/dL (31.0-37.0); MCV 90.4 fL (80.0-100.0); Mean Platelet Volume 9.2; Platelet Count 162 k/uL (150-450); RDW 14.5 % (11.5-15.5); WBC 12.4 k/uL (3.8-10.6)
[2024-03-09 07:46] LABS: African American GFR (CKD) 13 (>60 ml/min/1.73 sqM); Anion Gap 8 mmol/L; Blood Urea Nitrogen 84 mg/dL (9-20); Calcium 8.3 mg/dL (8.4-10.2); Carbon Dioxide 25 mmol/L (22-30); Chloride 98 mmol/L (98-107); Glucose 111 mg/dL (74-99); Non-African American GFR(CKD) 11 (>60 ml/min/1.73 sqM); Potassium 5.8 mmol/L (3.5-5.1); Sodium 131 mmol/L (137-145)
[2024-03-09] MEDS: SODIUM ZIRCONIUM CYCLOSILICATE 10 GM PACKET PO ONE ×3 (09:33→20:06)
[2024-03-09] MEDS: FUROSEMIDE 10 MG/ML 10 ML VIAL IV STA (10:04)
--- NOTE | 2024-03-09 10:36 | P.PN ---
Subjective Patient is seen in follow-up for acute kidney injury on chronic kidney disease. Renal function worse with creatinine 4.71 today. Urine output about 150 cc in the last 24 hours. Currently on IV fluids. Vital signs are stable. General: No acute distress. HEENT: Head exam is unremarkable. On nasal cannula. LUNGS: Scattered rhonchi. HEART: Rate and Rhythm are regular. ABDOMEN: Nontender. EXTREMITITES: No edema. AKA noted. Objective - Vital Signs Vital signs: Vital Signs Temp 98 F 03/09/24 04:50 Pulse 88 03/09/24 08:01 Resp 28 H 03/09/24 08:05 BP 137/81 03/09/24 07:40 Pulse Ox 94 L 03/09/24 08:05 FiO2 Intake & Output 03/08/24 03/09/24 03/09/24 18:59 06:59 18:59 Intake Total 354 40 Balance 354 40 Intake: IV 40 Invasive Line 1 20 Invasive Line 2 20 Oral 354 Other: Voiding Method Urinal Urinal - Labs CBC & Chem 7: 03/09/24 07:13 03/09/24 07:13 Labs: Abnormal Lab Results - Last 24 Hours (Table) 03/09/24 03/09/24 Range/Units 07:13 07:13 WBC 12.4 H (3.8-10.6) k/uL Hgb 12.4 L (13.0-17.5) gm/dL Sodium 131 L (137-145) mmol/L Potassium 5.8 H (3.5-5.1) mmol/L BUN 84 H (9-20) mg/dL Creatinine 4.71 H (0.66-1.25) mg/dL Glucose 111 H (74-99) mg/dL Calcium 8.3 L (8.4-10.2) mg/dL Assessment and Plan Plan: Assessment: 1. Acute kidney injury secondary to hemodynamic ATN. Creatinine 2.25 on admission and is 4.71 today. History of hemodialysis dependent acute kidney injury. Has been off dialysis for a few months now. Ultrasound from October 2023 showed no evidence of hydronephrosis. Ultrasound from this admission showed no evidence of hydronephrosis. Left kidney atrophic. 2. Right groin pseudoaneurysm. Awaits transfer to [facility] per vascular surgery. 3. Coronary disease with stents. 4. Hyperkalemia secondary to acute kidney injury. 5. Hypertension with chronic kidney disease. Controlled. 6. Acute on chronic diastolic CHF. 7. History of AAA with stent placement. 8. Pneumonia on antibiotics. 9. Chronic kidney disease stage IV. 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 Establish baseline renal function. 10. NSTEMI. Cardiology following. 11. A-fib with RVR status post Cardizem drip. On Coreg. 12. Volume overload. Plan: Insert Schulz catheter. Lasix 80 mg IV once today. Lokelma 10 g once now. Continue to monitor renal function and urine output. Avoid nephrotoxins. Repeat potassium level this afternoon. If no improvement in renal function and urine output in the next 24 hours, will initiate renal replacement therapy. Patient agreeable.
--- NOTE | 2024-03-09 10:57 | XR ---
EXAMINATION TYPE: XR chest 1V DATE OF EXAM: 03/09/2024 COMPARISON: 03/07/2024 HISTORY: CHF TECHNIQUE: Single frontal view of the chest is obtained. FINDINGS: The pulmonary vasculature appears less congested on the prior study however there is a moderate incre asing right pleural effusion. There is no left pleural effusion. There is no pneumothorax. The osseous structures are intact IMPRESSION: 1. Decreasing pulmonary vascular congestion. 2. Increasing moderate right pleural effusion. [facility], , 03/09/2024 10:55 AM
--- NOTE | 2024-03-09 11:08 | P.PN ---
Subjective Progress Note Date: 03/09/24 78-year-old male with a PMH of COPD, ESRD previously on hemodialysis, diastolic CHF, paroxysmal A-fib on Eliquis, peripheral arterial disease status post right AKA, h/o AAA status post EVAR, h/o fem-fem bypass, hypertension, and hyperlipidemia who presented to the emergency room with complaints of shortness of breath and a right groin mass. In the ED he underwent extensive evaluation. BP 133/116, HR 170, T 97F, RR 26, 83% on 6L NC. CBC, Coag panel, CMP significant for PT 12.7, INR 1.2, K 6.7, bicarb 31, BUN 34, Cr 2.25, glu 129, T. Bili 2.4, total protein 5.9. Lactic acid 3.3. Mag 2.4. Procal 2.12. BNP 94245. Troponin 0.045, 0.205, 0.311 with EKG showing AFib with RVR. CXR showed right lower lung zone opacity PNA versus pleural effusion. Patient was started on a Cardizem infusion, 2L NS bolus + maintainance fluids and admitted for further evaluation. Started on Rocephin and Azithromycin for concerns for PNA. Nephrology, Cardiology, Pulmonary consulted. Nephrology recommended Hep-Lock IV fluids and hold off on diuretics at this time. Cardiology increased his Coreg and Cardizem drip was able to be weaned off, elevated Troponins attributed to type II NSTEMI. Pulmonary optimized his bronchodilators and steroids. Vascular surgery consulted for right groin mass, US ordered which showed pseudoaneurysm in the right groin 4.6 x 3.1. Patient has had most of his Vascular procedures done by Dr. James at [facility] and given his complexity of vascular issues recommendation was made to transfer the patient to [facility]. Patient accepted for transfer to [facility] by Dr. Flores on 03/07 pending bed availability. 03/09 Patient was seen and examined. He reports no complaints. Currently 94% on 4L. Started on NS yesterday for worsening renal function. CBC, BMP done today significant for WBC 12.4, Hg 12.4, Na 131, K 5.8, BUN 84, Cr 4.74, glu 111, Ca 8.3. Lokelma 10g PO x 1 ordered along with Lasix 80 mg IV. Schulz was inserted yesterday, patient is making minimal urine output. NS discontinued. Renal US shows no hydronephrosis, left cortical cyst, left renal atrophy. COVID/RSV/Flu negative. Currently on Rocephin/Azithromycin for PNA. CXR done today shows improved pulmonary vascular congestion but increasing moderate right pleural effusion. General: non toxic, no distress, appears at stated age, 4L NC Derm: warm, dry Head: atraumatic, normocephalic, symmetric Eyes: EOMI, no lid lag, anicteric sclera Mouth: no lip lesion, mucus membranes moist Cardiovascular: S1S2 reg, no murmur Lungs: Dereased BS BL, rhonchi R>L, no accessory muscle use Abd: Non distended. Non tender to palpation Ext: no gross muscle atrophy, no edema, no contractures, RLE AKA Neuro: no focal neuro deficits Psych: Alert, oriented, appropriate affect Based on my assessment of this patient, this patient meets a high complexity le dione of care. Acute hypoxic respiratory failure: Multifactorial. Volume overload from CKD worsened with A-Fib RVR versus PNA. Sepsis due to Pneumonia: Procal 2.12. Rocephin 2g IV QD. Azithromycin 500 mg IV QD. Follow up BCx, Sputum Cx, Legionella Ag. COVID/RSV/Flu negative. Hyperkalemia: Likely due to worsening renal function. EKG ordered. Lokelma 10g PO x 1. Lasix 80 mg IV x 1. Acute kidney injury on CKD stage IV: Worsening. May need HD. Not much urine output. Lasix 80 mg IV x 1 today. Nephrology on board. Right pleural effusion: Chest US ordered. Lasix 80 mg IV x 1. Pulmonary on board. Atrial fibrillation with RVR: AC with Eliquis 5 mg PO BID. Coreg 25 mg PO BID. Type II NSTEMI likely due to A-Fib with RVR and sepsis Pseudoaneurysm right groin: Pending transfer to [facility] per Vascular Surgery. Acute COPD exacerbation: DuoNeb QID scheduled and PRN for SOB/wheezing. Prednisone 40 mg PO QD. Resolved: Lactic acidosis Patient accepted for transfer to [facility] by Dr. Flores pending bed availability. CODE STATUS: FULL CODE DVT Prophylaxis: Eliquis GI Prophylaxis: Designated medical POA if patient is not able to make medical decisions for themselves: I have reviewed the following financial analysis consultant notes: Nephrology, Cardiology, Pulmonary I have reviewed the results of the following tests: CBC, BMP, renal US, COVID/RSV/Flu. I have ordered the following tests: CBC, BMP tomorrow. I have discussed the care of this patient with the following independent historian: RN I have independently interpreted the following test below: CXR I have discussed the management of this patient with the following physician: Objective - Vital Signs Vital signs: Vital Signs Temp 98 F 03/09/24 04:50 Pulse 88 03/09/24 08:01 Resp 28 H 03/09/24 08:05 BP 137/81 03/09/24 07:40 Pulse Ox 94 L 03/09/24 08:05 FiO2 Intake & Output 03/08/24 03/09/24 03/09/24 18:59 06:59 18:59 Intake Total 354 40 Balance 354 40 Intake: IV 40 Invasive Line 1 20 Invasive Line 2 20 Oral 354 Other: Voiding Method Urinal Urinal - Labs CBC & Chem 7: 03/09/24 07:13 03/09/24 07:13 Labs: Abnormal Lab Results - Last 24 Hours (Table) 03/09/24 03/09/24 Range/Units 07:13 07:13 WBC 12.4 H (3.8-10.6) k/uL Hgb 12.4 L (13.0-17.5) gm/dL Sodium 131 L (137-145) mmol/L Potassium 5.8 H (3.5-5.1) mmol/L BUN 84 H (9-20) mg/dL Creatinine 4.71 H (0.66-1.25) mg/dL Glucose 111 H (74-99) mg/dL Calcium 8.3 L (8.4-10.2) mg/dL
--- NOTE | 2024-03-09 11:50 | P.PN ---
Subjective HISTORY OF PRESENT ILLNESS: This is a 78-year-old male patient of Dr. Siegel with past medical history of right [id number] amputation, persistent atrial fibrillation on Eliquis, hypertension, hyperlipidemia, coronary artery disease with multiple stents in the past, PAD with abdominal aortic aneurysm status post EVAR with additional PAD, end-stage renal disease previously on hemodialysis. We have been asked to evaluate the patient for atrial fibrillation. Patient states he came into the hospital due to shortness of breath. He states his last hemodialysis was 3 to 4 months ago he states that he was told he did not require it any longer. Patient does have a cough which she states he always has and is about the same. No fever, no chest pain, no palpitations, no dizziness no syncopal episodes. He denies any nausea or vomiting, no blood in his stool or urine, no history of stroke or seizure. Patient is an active smoker on and off. Patient was found to be in A-fib with RVR and was started on Cardizem drip at 5 mg/h. He is status post 2 L of IV fluid, Lokelma also started on COPD medications. Patient also noted to have a large mass in the right groin for which we ordered an ultrasound which came back as pseudoaneurysm and we have added in a consult with vascular surgery and recommendations are for transfer to tertiary care. Regarding this mass, he states he has had it for about 2 to 3 weeks. Blood pressure 111/69, heart rate 86, pulse ox 94%. EKG: Atrial fibrillation at 153 bpm Chest x-ray: #1 negative for acute finding. #2 hazy density in the right hemithorax Laboratory studies: WBC 9.9, hemoglobin 14.2, hemoglobin 151. INR 1.2. Initial potassium 6.7 now 4.9, sodium 136, BUN 44 creatinine 3. Troponins 0.045, 0.205, 0.311. Lactic acid 3.3 and repeat 1.5, magnesium 2.4. Home cardiac medications: Amlodipine 10 mg daily, Eliquis 5 mg twice daily, atorvastatin 10 mg at bedtime, Coreg 12.5 mg twice daily, hydralazine 100 mg 3 times daily, Imdur 30 mg daily, torsemide 40 mg daily. Echocardiogram performed on 09/11/2023 reveals EF of 50 to 55%, mildly increased left ventricular wall thickness, moderate to severe biatrial enlargement, mild right ventricular dilation, trace mitral regurgitation, no pericardial effusion. Lexiscan Cardiolite stress test performed 04/2023 revealed fixed inferior defect likely consistent with prior infarct as well as small sized apical perfusion defect concerning for ischemia. Plan for medical therapy. 03/08/2024 Patient examined this morning at the bedside. Patient's family is present. Patient currently denies chest pain or pressure. He denies shortness of breath. Telemetry reveals atrial fibrillation with a heart rate in the 80s. Vital signs are stable. Blood pressure 114/74. 03/09/2024 Patient examined this morning the bedside. Patient currently denies chest pain or pressure. He denies shortness of breath. He denies any worsening pain of his right groin. He is awaiting a bed at [facility]. Telemetry reveals atrial fibrillation with controlled ventricular rate PHYSICAL EXAM: VITAL SIGNS: Reviewed. GENERAL: Well-developed in no acute distress. NECK: Supple. No JVD or thyromegaly LUNGS: Respirations even and unlabored. Lungs with expiratory wheezing noted. HEART: Irregular rate and rhythm. S1 and S2 heard. Right firm mass noted to right groin. EXTREMITIES: Normal range of motion. No clubbing or cyanosis. Peripheral pulses intact. Right nsyzb-ywg-atko amputation. ASSESSMENT: Pseudoaneurysm right groin Elevated troponins, type II NSTEMI secondary to lactic acidosis, COPD exacerbation COPD exacerbation Persistent atrial fibrillation on Eliquis Hypertension Hyperlipidemia Coronary artery disease with previous stenting Previous abdominal aortic aneurysm status post EVAR with aneurysmal dilation of common iliac vessels with Dr. James at [facility] Previous femorofemoral bypass End-stage renal disease recently stopped hemodialysis Nicotine dependence PLAN: Continue current cardiac medications Continue telemetry monitoring. Continue to monitor blood pressure. Plan for transfer to [facility]. Patient is awaiting bed assignment. Further recommendations pending patient course Nurse practitioner note has been reviewed by physician. Signing provider agrees with the documented findings, assessment, and plan of care documented by [employer]ICER as a scribe. Objective - Vital Signs Vital signs: Vital Signs Temp 98 F 03/09/24 04:50 Pulse 92 03/09/24 11:29 Resp 28 H 03/09/24 08:05 BP 137/81 03/09/24 07:40 Pulse Ox 92 L 03/09/24 11:44 FiO2 Intake & Output 03/08/24 03/09/24 03/09/24 18:59 06:59 18:59 Intake Total 354 40 Balance 354 40 Intake: IV 40 Invasive Line 1 20 Invasive Line 2 20 Oral 354 Other: Voiding Method Urinal Urinal Urinal - Labs CBC & Chem 7: 03/09/24 07:13 03/09/24 07:13 Labs: Abnormal Lab Results - Last 24 Hours (Table) 03/09/24 03/09/24 Range/Units 07:13 07:13 WBC 12.4 H (3.8-10.6) k/uL Hgb 12.4 L (13.0-17.5) gm/dL Sodium 131 L (137-145) mmol/L Potassium 5.8 H (3.5-5.1) mmol/L BUN 84 H (9-20) mg/dL Creatinine 4.71 H (0.66-1.25) mg/dL Glucose 111 H (74-99) mg/dL Calcium 8.3 L (8.4-10.2) mg/dL
--- NOTE | 2024-03-09 13:23 | P.PN ---
Subjective Progress Note Date: 03/09/24 This is a consultation for this 78-year-old male patient presented to the hospital because of worsening shortness of breath. The patient was found to be in atrial fibrillation with rapid ventricular response. The patient was also found to be hypoxic and the patient did is currently on 5 L of oxygen by nasal cannula and a chest x-ray shows increased bilateral pulmonary filtrates right more than left and there is some increased haziness along the right lung which could be related to an atypical or asymmetric pulmonary edema versus right-sided pleural effusion. Possibility of a right lung pneumonia cannot be completely excluded as the patient is having increased cough and congestion. Nevertheless, the patient's white cell count at 9.9, hemoglobin 14.2 and a platelet count is at 151. Electrolytes show a BUN of 34 with a creatinine of 2.2 with a creatinine is currently up to 3 and a potassium initially 6.7 currently down to 4.9. Sodium is at 137 and currently down to 136. Glucose is 129. Calcium level is at 8.5. Troponins were positive at 0.04 and 0.3 and a proBNP level is 26,200. Total protein is 5.9 with an albumin of 3.7. On a separate note, the patient was complaining of groin pain. Further investigation with an ultrasound of the right groin reveals a 4.6 x 3.1 cm pseudoaneurysm in the right groin and this is obviously palpable and the area is bulging above the skin. There is also evidence of a vascular bypass surgery, and possibly a femorofemoral bypass graft noted in his pelvic area with a positive thrill. The patient currently is resting comfortably in bed. Denies having any significant shortness of breath. He was started on a combination Rocephin and Zithromax. On DuoNeb the regiment [id number]. He was also started on a prednisone burst taper starting with 40 mg p.o. daily. A final decision on admission has not been made as the patient is being considered for transfer to another facility, possibly [facility] regarding his right groin pseudoaneurysm. The patient also has history of coronary artery disease with multiple coronary stents in the past, peripheral vascular disease, abdominal aortic aneurysm status post endovascular stent grafting and the patient has chronic kidney disease and earlier this year, the patient was placed on hemodialysis and he was on hemodialysis for few months and currently is off dialysis and he was told that he does not require dialysis anymore. During this current admission, his potassium level was elevated and creatinine is also elevated. In regards to his atrial fibrillation, the patient was placed on a Cardizem drip for rate control. Previous echocardiogram from 09/11/2023 shows a ejection fraction of 50 to 55% with mild increase in the left ventricular wall thickness and moderate to severe biatrial enlargement and mild right ventricular dilatation. Cardiac Lexiscan that was done April 2023 showed a fixed inferior wall defect and a small size apical perfusion defect concerning of an underlying ischemia. Several consultants have already been involved in his care including cardiology and nephrology. He is a chronic smoker. His increased troponin level was considered to be related to A-fib, RVR and type II myocardial ischemia. He is free of any chest pain for now. Cardize m drip has been discontinued and the patient was started on a combination of Coreg for rate control and anticoagulation with Eliquis. On 03/08/2024, patient is being seen in follow-up. The patient is calm and comfortable, remains on 40 of oxygen by nasal cannula with pulse ox of 92%. The patient has no specific complaints. Urine output is quite diminished and the patient's renal function from today shows interval worsening in renal function with a BUN of 67 and creatinine of 4.1. Sodium levels at 131 and the potassium level is at 5.1. Procalcitonin is elevated at 2.12. Nevertheless, there is no clear indication for underlying pneumonia and sepsis. The chest x-ray findings are probably due to CHF and fluid overload and asymmetric pulmonary edema. WBC count 11.1, hemoglobin 11.7. Nephrology is on the case and Demadex was stopped yesterday and urine output remains low. The patient was started on IV fluids with normal citrate of 75 cc an hour. Bladder scan was negative for urine retention. Ultrasound of the kidneys was ordered. Will continue to follow. May be candidate for renal replacement therapy. At the same time, the patient is being considered for transfer to [facility] regarding the pseudoaneurysm that has been noted earlier. 03/09/2024, patient is feeling slightly more short of breath compared to yesterday. Noted his urine output is quite diminished and the patient has developed also worsening renal function. Chest x-ray showing an increase in the right-sided pleural effusion and there is also some background pulm vessel congestion. He remains on 40 Suboxone by nasal cannula. He is being considered to be reinitiated on hemodialysis and nephrology on the case. He remains in atrial fibrillation. At the same time, there is some efforts to transfer this patient to [facility] regarding the right groin pseudoaneurysm. The white cell count is at 12 with a hemoglobin 12 and a platelet count of 162. Potassium is at 5.8 and sodium is at 131. BUN is 84 with a creatinine of 4.7. The patient was started also on diuretics and he will be given IV Lasix. The rest of the medications remain unchanged. No other complaints otherwise for now. IV fluids will also be cut down to KVO and the patient's hyperkalemia will be treated with Lokelma. Objective - Vital Signs Vital signs: Vital Signs Temp 98 F 03/09/24 04:50 Pulse 88 03/09/24 08:01 Resp 28 H 03/09/24 08:05 BP 137/81 03/09/24 07:40 Pulse Ox 94 L 03/09/24 08:05 FiO2 Intake & Output 03/08/24 03/09/24 03/09/24 18:59 06:59 18:59 Intake Total 354 40 Balance 354 40 Intake: IV 40 Invasive Line 1 20 Invasive Line 2 20 Oral 354 Other: Voiding Method Urinal Urinal - Exam Gen: in no apparent distress, resting comfortably in bed, the patient is currently 5 L O2 nasal cannula Eyes: PERRL, no scleral injection or icterus Head exam was generally normal. There was no scleral icterus or corneal arcus. Mucous membranes were moist. Neck: no tracheal deviation, full range of motion Resp: Diminished breath sounds along with scattered rhonchi and crackles in the right lung compared to the left. CVS: good distal perfusion x 4, bilateral pitting edema, irregular rhythm consistent with atrial fibrillation. Overall heart sounds are quite distant at this point in time. The patient also has a palpable pseudoaneurysm in his right temporal area. GI: soft, NTTP, ND, no hepatosplenomegaly : no suprapubic tenderness, no CVAT, monae catheter not present MSK: no clubbing, no cyanosis, no noted contractures of extremities, and the patient has an above-knee amputation right lower extremity. Pulses lower extremity on the left is quite diminished. Skin: no noted rashes, petechiae; temperature of skin is appropriate Neuro: moving all extremities without signs of weakness, CN II-XII intact Psych: cooperative, euthymic mood, insight and judgment intact - Labs CBC & Chem 7: 03/09/24 07:13 03/09/24 12:54 Labs: Abnormal Lab Results - Last 24 Hours (Table) 03/09/24 03/09/24 Range/Units 07:13 07:13 WBC 12.4 H (3.8-10.6) k/uL Hgb 12.4 L (13.0-17.5) gm/dL Sodium 131 L (137-145) mmol/L Potassium 5.8 H (3.5-5.1) mmol/L BUN 84 H (9-20) mg/dL Creatinine 4.71 H (0.66-1.25) mg/dL Glucose 111 H (74-99) mg/dL Calcium 8.3 L (8.4-10.2) mg/dL Assessment and Plan Plan: Acute hypoxic respiratory failure, suspect volume overload/CHF with development of bilateral pleural effusion right more than left with asymmetric pulmonary edema versus right lung pneumonia. The patient is currently on 4 L of oxygen nasal cannula. No significant leukocytosis. No significant hypotension. Currently on a combination of Rocephin. There is some interval worsening shortness of breath. Dyspnea related to fluid overload and underlying worsening renal function. Chest x-ray shows some interval worsening of the right-sided pleural effusion. Chronic atrial fibrillation presenting with A-fib with RVR, rates under better control and the patient is on anticoagulants. Abnormal troponins rule out non-ST segment elevation myocardial infarction versus type II myocardial ischemia second A-fib and RVR Chronic kidney disease stage III with previous need for hemodialysis. The patient has been off dialysis for few weeks being monitored by nephrology. The patient has developed an acute kidney injury on top of chronic renal failure. 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 Continue DuoNeb nebulized treatments [id number] and prednisone burst taper Continue Rocephin Nephrology consultation reevaluate the need for hemodialysis IV fluids to KVO Monitor renal function Give 80 mg of IV Lasix Given Lokelma 10 g Monitor potassium Consider renal replacement therapy based on the progression of the renal failure Cardiology consultation regarding his chronic atrial fibrillation. Rate is c ontrolled and the patient is currently on Coreg and anticoagulation with Eliquis. Vascular surgery consultation regarding the pseudoaneurysm in his right groin, likely transfer to [facility] regarding the pseudoaneurysm Obviously, condition is quite complicated and the patient is chronic debilitated due to the above-mentioned comorbidities. Will continue to follow and make further recommendations based on his overall progress.
--- NOTE | 2024-03-09 13:34 | US ---
EXAMINATION TYPE: US chest DATE OF EXAM: 03/09/2024 COMPARISON: XR chest CLINICAL INDICATION: Male, 78 years old with history of right pleural effusion; TECHNIQUE: Targeted ultrasound of the posterior lower Right EXAM MEASUREMENTS: Right Pleural Effusion pocket size: 11.9 cm Right skin surface to fluid distance: 2.3 cm Right side marked for possible thoracentesis outside the dept. Pulmonologists are able to review the images in the patient?s EMR. IMPRESSIONS: Right pleural effusion as described above. [facility], , 03/09/2024 1:32 PM
[2024-03-09] MEDS: DEXTROSE 50% SYRINGE 50 ML IVP STA ×2 (16:32→20:06)
[2024-03-09] MEDS: INSULIN REGULAR 100 UNIT/ML VIAL (IV) IV ONE ×2 (16:33→20:06)
[2024-03-09] MEDS: SODIUM BICARB 8.4% 50 ML SYR (1 MEQ/ML) IV STA ×2 (16:39→17:41)
[2024-03-10 07:18] LABS: HCT 37.6 % (39.0-53.0); HGB 11.9 gm/dL (13.0-17.5); Hypochromasia Moderate; MCH 28.5 pg (25.0-35.0); MCHC 31.7 g/dL (31.0-37.0); MCV 89.7 fL (80.0-100.0); Mean Platelet Volume 8.9; Platelet Count 139 k/uL (150-450); RDW 14.4 % (11.5-15.5); WBC 8.6 k/uL (3.8-10.6)
[2024-03-10 07:31] LABS: Anion Gap 8 mmol/L; Blood Urea Nitrogen 100 mg/dL (9-20); Calcium 8.3 mg/dL (8.4-10.2); Carbon Dioxide 28 mmol/L (22-30); Chloride 94 mmol/L (98-107); Glucose 97 mg/dL (74-99); Potassium 5.2 mmol/L (3.5-5.1); Sodium 130 mmol/L (137-145)
[2024-03-10 07:37] LABS: African American GFR (CKD) 13 (>60 ml/min/1.73 sqM); Non-African American GFR(CKD) 11 (>60 ml/min/1.73 sqM)
[2024-03-10 09:50] LABS: Hepatitis B Surface AB- Quant 3.5 mIU/mL
[2024-03-10 09:56] LABS: Hepatitis B Surface Antigen Nonreactive (Nonreactive)
--- NOTE | 2024-03-10 10:20 | P.PN ---
Subjective Progress Note Date: 03/10/24 78-year-old male with a PMH of COPD, ESRD previously on hemodialysis, diastolic CHF, paroxysmal A-fib on Eliquis, peripheral arterial disease status post right AKA, h/o AAA status post EVAR, h/o fem-fem bypass, hypertension, and hyperlipidemia who presented to the emergency room with complaints of shortness of breath and a right groin mass. In the ED he underwent extensive evaluation. BP 133/116, HR 170, T 97F, RR 26, 83% on 6L NC. CBC, Coag panel, CMP significant for PT 12.7, INR 1.2, K 6.7, bicarb 31, BUN 34, Cr 2.25, glu 129, T. Bili 2.4, total protein 5.9. Lactic acid 3.3. Mag 2.4. Procal 2.12. BNP 98703. Troponin 0.045, 0.205, 0.311 with EKG showing AFib with RVR. CXR showed right lower lung zone opacity PNA versus pleural effusion. Patient was started on a Cardizem infusion, 2L NS bolus + maintainance fluids and admitted for further evaluation. Started on Rocephin and Azithromycin for concerns for PNA. Nephrology, Cardiology, Pulmonary consulted. Nephrology recommended Hep-Lock IV fluids and hold off on diuretics at this time. Cardiology increased his Coreg and Cardizem drip was able to be weaned off, elevated Troponins attributed to type II NSTEMI. Pulmonary optimized his bronchodilators and steroids. Vascular surgery consulted for right groin mass, US ordered which showed pseudoaneurysm in the right groin 4.6 x 3.1. Patient has had most of his Vascular procedures done by Dr. James at [facility] and given his complexity of vascular issues recommendation was made to transfer the patient to [facility]. Patient accepted for transfer to [facility] by Dr. Flores on 03/07 pending bed availability. Renal function consistently worsening Cr 2.25 on admission to 4.80 despite IV hydration and Lasix IV challenge. Patient is making minimal urine output, there are plans to initiate hemodialysis. 03/10 Patient was seen and examined. Reports no SOB. Currently 90% on 6L. Urine output 160 cc over the past 24H despite Lasix 80 mg IV. He was given 2 amps of bicarb, 10g PO Lokelma x 3 and 10 units of IV insulin x 2 for hyperkalemia yesterday. CBC, BMP done today significant for RBC 4.2, Hg 11.9, Hct 37.6, Na 130, K 5.2, Cl 94, BUN 100, Cr 4.8, Ca 8.3. Eliquis held yesterday for temporary HD catheter. Currently on Rocephin/Azithromycin for PNA. Chest US done yesterday to evaluate right pleural effusion. BCx prelim negative at 24H. Sputum Cx with PMN, mod G+ cocci, mod G+ bacilli, few G- bacilli. Legionella Ag negative. General: non toxic, no distress, appears dyspenic, 6L NC Derm: warm, dry Head: atraumatic, normocephalic, symmetric Eyes: EOMI, no lid lag, anicteric sclera Mouth: no lip lesion, mucus membranes moist Cardiovascular: S1S2 reg, no murmur Lungs: Dereased BS BL, rhonchi R>L, no accessory muscle use Abd: Non distended. Non tender to palpation Ext: no gross muscle atrophy, no edema, no contractures, RLE AKA Neuro: no focal neuro deficits Psych: Alert, oriented, appropriate affect Based on my assessment of this patient, this patient meets a high complexity level of care. Acute hypoxic respiratory failure: Multifactorial. Volume overload from CKD worsened with A-Fib RVR versus PNA. Sepsis due to Pneumonia: Procal 2.12. Rocephin 2g IV QD (D4). Completed 3 days of Azithromycin. BCx prelim negative at 24H. Sputum Cx with PMN, mod G+ cocci, mod G+ bacilli, few G- bacilli. Legionella Ag negative. COVID/RSV/Flu negative. Hyperkalemia: Likely due to worsening renal function. EKG with no T wave abnormalities. Status post Lokelma 10g PO x 3, Lasix 80 mg IV x 1, sodium bicarb amp x 2, Insulin 10 units IV x 2. Hopeful improvement with HD. Acute kidney injury on CKD stage IV: Worsening. Plans for HD. Lasix 80 mg IV x 1 03/09. Nephrology on board. Right pleural effusion: Chest US ordered. Lasix 80 mg IV x 1 03/09. Hopeful improvement with HD. Pulmonary on board. Atrial fibrillation with RVR: Eliquis held for temporary HD catheter placement. Coreg 25 mg PO BID. Type II NSTEMI likely due to A-Fib with RVR and sepsis Pseudoaneurysm right groin: Pending transfer to [facility] per Vascular Surgery. Acute COPD exacerbation: DuoNeb QID scheduled and PRN for SOB/wheezing. Prednisone 40 mg PO QD. Resolved: Lactic acidosis Patient accepted for transfer to [facility] by Dr. Flores on 03/07 pending bed availability. CODE STATUS: FULL CODE DVT Prophylaxis: SCD GI Prophylaxis: Designated medical POA if patient is not able to make medical decisions for themselves: I have reviewed the following nissan sales consultant notes: Nephrology, Cardiology, Pulmonary I have reviewed the results of the following tests: CBC, BMP, Chest US, Legionella Ag, BCx, Sputum Cx. I have ordered the following tests: CBC, BMP tomorrow. I have discussed the care of this patient with the following independent historian: I have independently interpreted the following test below: EKG 03/09 I have discussed the management of this patient with the following physician: Objective - Vital Signs Vital signs: Vital Signs Temp 97.9 F 03/10/24 04:00 Pulse 106 H 03/10/24 07:49 Resp 18 03/10/24 07:49 BP 136/94 03/10/24 04:00 Pulse Ox 90 L 03/10/24 07:49 FiO2 Intake & Output 03/09/24 03/10/24 03/10/24 18:59 06:59 18:59 Intake Total 240 722 Output Total 40 120 Balance 200 602 Weight 72.7 kg Intake: Oral 240 722 Output: Urine 40 120 Other: Voiding Method Indwelling Catheter Indwelling Catheter # Voids 1 # Bowel Movements 1 - Labs CBC & Chem 7: 03/10/24 06:06 03/10/24 06:06 Labs: Abnormal Lab Results - Last 24 Hours (Table) 03/09/24 03/09/24 03/10/24 Range/Units 12:54 19:14 06:06 RBC 4.20 L (4.30-5.90) m/uL Hgb 11.9 L (13.0-17.5) gm/dL Hct 37.6 L (39.0-53.0) % Plt Count 139 L (150-450) k/uL Sodium (137-145) mmol/L Potassium 5.7 H 5.5 H (3.5-5.1) mmol/L Chloride (98-107) mmol/L BUN (9-20) mg/dL Creatinine (0.66-1.25) mg/dL Calcium (8.4-10.2) mg/dL 03/10/24 Range/Units 06:06 RBC (4.30-5.90) m/uL Hgb (13.0-17.5) gm/dL Hct (39.0-53.0) % Plt Count (150-450) k/uL Sodium 130 L (137-145) mmol/L Potassium 5.2 H (3.5-5.1) mmol/L Chloride 94 L (98-107) mmol/L BUN 100 H (9-20) mg/dL Creatinine 4.80 H (0.66-1.25) mg/dL Calcium 8.3 L (8.4-10.2) mg/dL Microbiology - Last 24 Hours (Table) 03/09/24 08:01 Gram Stain - Preliminary Sputum 03/08/24 07:34 Blood Culture - Preliminary Blood
--- NOTE | 2024-03-10 12:04 | P.PN ---
Subjective patient is seen for follow-up for acute kidney injury and chronic kidney disease. Plans for dialysis catheter placement today. Urine output remains low. serum creatinine at 4.8 and potassium 5.2 today. Objective - Vital Signs Vital signs: Vital Signs Temp 98.3 F 03/10/24 08:00 Pulse 90 03/10/24 11:14 Resp 18 03/10/24 11:14 BP 130/62 03/10/24 08:00 Pulse Ox 92 L 03/10/24 08:00 FiO2 Intake & Output 03/09/24 03/10/24 03/10/24 18:59 06:59 18:59 Intake Total 240 722 220 Output Total 40 120 Balance 200 602 220 Weight 72.7 kg Intake: Oral 240 722 220 Output: Urine 40 120 Other: Voiding Method Indwelling Catheter Indwelling Catheter Indwelling Catheter # Voids 1 # Bowel Movements 1 - Exam patient is awake, comfortable, no acute distress. Examination of the heart S1 and S2 Examination of the lungs bilateral breath sounds are heard Abdomen is soft nontender Examination of lower extremities shows no significant edema. BOND BROKER exam grossly intact - Labs CBC & Chem 7: 03/10/24 06:06 03/10/24 06:06 Labs: Abnormal Lab Results - Last 24 Hours (Table) 03/09/24 03/09/24 03/10/24 Range/Units 12:54 19:14 06:06 RBC 4.20 L (4.30-5.90) m/uL Hgb 11.9 L (13.0-17.5) gm/dL Hct 37.6 L (39.0-53.0) % Plt Count 139 L (150-450) k/uL Sodium (137-145) mmol/L Potassium 5.7 H 5.5 H (3.5-5.1) mmol/L Chloride (98-107) mmol/L BUN (9-20) mg/dL Creatinine (0.66-1.25) mg/dL Calcium (8.4-10.2) mg/dL 03/10/24 Range/Units 06:06 RBC (4.30-5.90) m/uL Hgb (13.0-17.5) gm/dL Hct (39.0-53.0) % Plt Count (150-450) k/uL Sodium 130 L (137-145) mmol/L Potassium 5.2 H (3.5-5.1) mmol/L Chloride 94 L (98-107) mmol/L BUN 100 H (9-20) mg/dL Creatinine 4.80 H (0.66-1.25) mg/dL Calcium 8.3 L (8.4-10.2) mg/dL Microbiology - Last 24 Hours (Table) 03/09/24 08:01 Gram Stain - Preliminary Sputum 03/08/24 07:34 Blood Culture - Preliminary Blood Assessment and Plan Assessment: 1. Acute kidney injury secondary to hemodynamic ATN. Creatinine 2.25 on admission and is 4.8 today. History of hemodialysis dependent acute kidney injury. Has been off dialysis for a few months now. Ultrasound from October 2023 showed no evidence of hydronephrosis. Ultrasound from this admission showed no evidence of hydronephrosis. Left kidney atrophic. 2. Right groin pseudoaneurysm. Awaits transfer to [facility] per vascular surgery. 3. Coronary disease with stents. 4. Hyperkalemia secondary to acute kidney injury. 5. Hypertension with chronic kidney disease. Controlled. 6. Acute on chronic diastolic CHF. 7. History of AAA with stent placement. 8. Pneumonia on antibiotics. 9. Chronic kidney disease stage IV. 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 Establish baseline renal function. 10. NSTEMI. Cardiology following. 11. A-fib with RVR status post Cardizem drip. On Coreg. 12. Volume overload. Plan: hemodialysis once dialysis catheter is placed. Continue with Schulz catheter and repeat IV Lasix. Repeat labs in a.m.
--- NOTE | 2024-03-10 12:12 | P.PN ---
Subjective Progress Note Date: 03/10/24 HISTORY OF PRESENT ILLNESS: This is a 78-year-old male patient of Dr. Siegel with past medical history of right [id number] amputation, persistent atrial fibrillation on Eliquis, hypertension, hyperlipidemia, coronary artery disease with multiple stents in the past, PAD with abdominal aortic aneurysm status post EVAR with additional PAD, end-stage renal disease previously on hemodialysis. We have been asked to evaluate the patient for atrial fibrillation. Patient states he came into the hospital due to shortness of breath. He states his last hemodialysis was 3 to 4 months ago he states that he was told he did not require it any longer. Patient does have a cough which she states he always has and is about the same. No fever, no chest pain, no palpitations, no dizziness no syncopal episodes. He denies any nausea or vomiting, no blood in his stool or urine, no history of stroke or seizure. Patient is an active smoker on and off. Patient was found to be in A-fib with RVR and was started on Cardizem drip at 5 mg/h. He is status post 2 L of IV fluid, Lokelma also started on COPD medications. Patient also noted to have a large mass in the right groin for which we ordered an ult rasound which came back as pseudoaneurysm and we have added in a consult with vascular surgery and recommendations are for transfer to tertiary care. Regarding this mass, he states he has had it for about 2 to 3 weeks. Blood pressure 111/69, heart rate 86, pulse ox 94%. EKG: Atrial fibrillation at 153 bpm Chest x-ray: #1 negative for acute finding. #2 hazy density in the right hemithorax Laboratory studies: WBC 9.9, hemoglobin 14.2, hemoglobin 151. INR 1.2. Initial potassium 6.7 now 4.9, sodium 136, BUN 44 creatinine 3. Troponins 0.045, 0.205, 0.311. Lactic acid 3.3 and repeat 1.5, magnesium 2.4. Home cardiac medications: Amlodipine 10 mg daily, Eliquis 5 mg twice daily, atorvastatin 10 mg at bedtime, Coreg 12.5 mg twice daily, hydralazine 100 mg 3 times daily, Imdur 30 mg daily, torsemide 40 mg daily. Echocardiogram performed on 09/11/2023 reveals EF of 50 to 55%, mildly increased left ventricular wall thickness, moderate to severe biatrial enlargement, mild right ventricular dilation, trace mitral regurgitation, no pericardial effusion. Lexiscan Cardiolite stress test performed 04/2023 revealed fixed inferior defect likely consistent with prior infarct as well as small sized apical perfusion defect concerning for ischemia. Plan for medical therapy. 03/08/2024 Patient examined this morning at the bedside. Patient's family is present. Patient currently denies chest pain or pressure. He denies shortness of breath. Telemetry reveals atrial fibrillation with a heart rate in the 80s. Vital signs are stable. Blood pressure 114/74. 03/09/2024 Patient examined this morning the bedside. Patient currently denies chest pain or pressure. He denies shortness of breath. He denies any worsening pain of his right groin. He is awaiting a bed at [facility]. Telemetry reveals atrial fibrillation with controlled ventricular rate 03/10/24 Patient seen and examined. He denies any chest pain or pressure. He does have shortness of breath and is on 6 L nasal cannula. Has right groin pain only with palpation. Telemetry shows A-fib, rate controlled. PHYSICAL EXAM: VITAL SIGNS: Reviewed. GENERAL: Well-developed in no acute distress. NECK: Supple. No JVD or thyromegaly LUNGS: Respirations even and unlabored. Lungs with expiratory wheezing noted. HEART: Irregular rate and rhythm. S1 and S2 heard. Right firm mass noted to right groin. EXTREMITIES: Normal range of motion. No clubbing or cyanosis. Peripheral pulses intact. Right [id number]-zqux amputation. No swelling. ASSESSMENT: Pseudoaneurysm right groin Elevated troponins, type II NSTEMI secondary to lactic acidosis, COPD exacerbation COPD exacerbation Persistent atrial fibrillation on Eliquis Hypertension Hyperlipidemia Coronary artery disease with previous stenting Previous abdominal aortic aneurysm status post EVAR with aneurysmal dilation of common iliac vessels with Dr. James at [facility] Previous femorofemoral bypass End-stage renal disease recently stopped hemodialysis Nicotine dependence PLAN: Continue current cardiac medications. Nephrology following and plans for hemodialysis once dialysis catheter is placed. Continue telemetry monitoring. Continue to monitor blood pressure. Plan for transfer to [facility] pending bed assignment. Further recomm endations pending patient course. Nurse practitioner note has been reviewed by physician. Signing provider agrees with the documented findings, assessment, and plan of care documented by DIRECTOR OF [employer]PORATE REAL ESTATE as a scribe. Objective - Vital Signs Vital signs: Vital Signs Temp 98.3 F 03/10/24 08:00 Pulse 92 03/10/24 08:00 Resp 20 03/10/24 08:00 BP 130/62 03/10/24 08:00 Pulse Ox 92 L 03/10/24 08:00 FiO2 Intake & Output 03/09/24 03/10/24 03/10/24 18:59 06:59 18:59 Intake Total 240 722 220 Output Total 40 120 Balance 200 602 220 Weight 72.7 kg Intake: Oral 240 722 220 Output: Urine 40 120 Other: Voiding Method Indwelling Catheter Indwelling Catheter Indwelling Catheter # Voids 1 # Bowel Movements 1 - Labs CBC & Chem 7: 03/10/24 06:06 03/10/24 06:06 Labs: Abnormal Lab Results - Last 24 Hours (Table) 03/09/24 03/09/24 03/10/24 Range/Units 12:54 19:14 06:06 RBC 4.20 L (4.30-5.90) m/uL Hgb 11.9 L (13.0-17.5) gm/dL Hct 37.6 L (39.0-53.0) % Plt Count 139 L (150-450) k/uL Sodium (137-145) mmol/L Potassium 5.7 H 5.5 H (3.5-5.1) mmol/L Chloride (98-107) mmol/L BUN (9-20) mg/dL Creatinine (0.66-1.25) mg/dL Calcium (8.4-10.2) mg/dL 03/10/24 Range/Units 06:06 RBC (4.30-5.90) m/uL Hgb (13.0-17.5) gm/dL Hct (39.0-53.0) % Plt Count (150-450) k/uL Sodium 130 L (137-145) mmol/L Potassium 5.2 H (3.5-5.1) mmol/L Chloride 94 L (98-107) mmol/L BUN 100 H (9-20) mg/dL Creatinine 4.80 H (0.66-1.25) mg/dL Calcium 8.3 L (8.4-10.2) mg/dL Microbiology - Last 24 Hours (Table) 03/09/24 08:01 Gram Stain - Preliminary Sputum 03/08/24 07:34 Blood Culture - Preliminary Blood
--- NOTE | 2024-03-10 12:54 | P.PN ---
Subjective Progress Note Date: 03/10/24 Patient seen and examined. No new events overnight. Potassium levels improved with medical management. BUN and Cr are increasing and per nursing patient urine output is diminished. Objective - Vital Signs Vital signs: Vital Signs Temp 98.3 F 03/10/24 08:00 Pulse 90 03/10/24 11:14 Resp 18 03/10/24 11:14 BP 130/62 03/10/24 08:00 Pulse Ox 92 L 03/10/24 08:00 FiO2 Intake & Output 03/09/24 03/10/24 03/10/24 18:59 06:59 18:59 Intake Total 240 722 220 Output Total 40 120 Balance 200 602 220 Weight 72.7 kg Intake: Oral 240 722 220 Output: Urine 40 120 Other: Voiding Method Indwelling Catheter Indwelling Catheter Indwelling Catheter # Voids 1 # Bowel Movements 1 - Constitutional General appearance: Present: average body habitus, no acute distress - EENT Eyes: Present: PERRLA - Respiratory Respiratory: bilateral: CTA - Cardiovascular Rhythm: regular - Gastrointestinal General gastrointestinal: Present: soft. Absent: distended - Psychiatric Psychiatric: Present: A&O x's 3, appropriate affect - Labs CBC & Chem 7: 03/10/24 06:06 03/10/24 06:06 Labs: Abnormal Lab Results - Last 24 Hours (Table) 03/09/24 03/09/24 03/10/24 Range/Units 12:54 19:14 06:06 RBC 4.20 L (4.30-5.90) m/uL Hgb 11.9 L (13.0-17.5) gm/dL Hct 37.6 L (39.0-53.0) % Plt Count 139 L (150-450) k/uL Sodium (137-145) mmol/L Potassium 5.7 H 5.5 H (3.5-5.1) mmol/L Chloride (98-107) mmol/L BUN (9-20) mg/dL Creatinine (0.66-1.25) mg/dL Calcium (8.4-10.2) mg/dL 03/10/24 Range/Units 06:06 RBC (4.30-5.90) m/uL Hgb (13.0-17.5) gm/dL Hct (39.0-53.0) % Plt Count (150-450) k/uL Sodium 130 L (137-145) mmol/L Potassium 5.2 H (3.5-5.1) mmol/L Chloride 94 L (98-107) mmol/L BUN 100 H (9-20) mg/dL Creatinine 4.80 H (0.66-1.25) mg/dL Calcium 8.3 L (8.4-10.2) mg/dL Microbiology - Last 24 Hours (Table) 03/09/24 08:01 Gram Stain - Preliminary Sputum Sputum Culture - Preliminary 03/08/24 07:34 Blood Culture - Preliminary Blood Assessment and Plan Assessment: Acute kidney injury Hyperkalemia Sepsis due to Pneumonia Hypoxic respiratory failure History of multiple vascular surgeries at [facility] Right groin large pseudoaneurysm Plan: Discussed with nephrology and patient will require dialysis tomorrow. Awaiting on bed availability per nursing for transfer to [facility] If patient still here tomorrow then will place temp cath at that time.
[2024-03-10] MEDS: FUROSEMIDE 10 MG/ML 10 ML VIAL IV SCH (13:27)
--- NOTE | 2024-03-10 17:21 | P.DS ---
Providers Date of admission: 03/06/24 20:33 Expected date of discharge: 03/10/24 Attending physician: Christophe Siegel MD Consults: 03/06/24 20:31 Consult Physician Routine Consulting Provider: Hattie Hall Consult Reason/Comments: copd Do you want consulting provider notified?: Yes 03/07/24 03:11 Consult Physician Urgent Consulting Provider: Kunal Avelar Consult Reason/Comments: ESRD Do you want consulting provider notified?: Yes 03/07/24 03:12 Consult Physician Urgent Consulting Provider: Ahsan Díaz Consult Reason/Comments: afib Do you want consulting provider notified?: Yes 03/07/24 09:36 Consult Physician Routine Consulting Provider: Brandon Davis Consult Reason/Comments: Pseudoaneurysm Do you want consulting provider notified?: Yes Primary care physician: [place] [facility] Course: 78-year-old male with a PMH of COPD, ESRD previously on hemodialysis, diastolic CHF, paroxysmal A-fib on Eliquis, peripheral arterial disease status post right AKA, h/o AAA status post EVAR, h/o fem-fem bypass, hypertension, and hyperlipidemia who presented to the emergency room with complaints of shortness of breath and a right groin mass. In the ED he underwent extensive evaluation. BP 133/116, HR 170, T 97F, RR 26, 83% on 6L NC. CBC, Coag panel, CMP significant for PT 12.7, INR 1.2, K 6.7, bicarb 31, BUN 34, Cr 2.25, glu 129, T. Bili 2.4, total protein 5.9. Lactic acid 3.3. Mag 2.4. Procal 2.12. BNP 17065. Troponin 0.045, 0.205, 0.311 with EKG showing AFib with RVR. CXR showed right lower lung zone opacity PNA versus pleural effusion. Patient was started on a Cardizem infusion, 2L NS bolus + maintainance fluids and admitted for further evaluation. Started on Rocephin and Azithromycin for concerns for PNA. Nephrology, Cardiology, Pulmonary consulted. Nephrology recommended Hep-Lock IV fluids and hold off on diuretics at this time. Cardiology increased his Coreg and Cardizem drip was able to be weaned off, elevated Troponins attributed to type II NSTEMI. Pulmonary optimized his bronchodilators and steroids. Vascular surgery consulted for right groin mass, US ordered which showed pseudoaneurysm in the right groin 4.6 x 3.1. Patient has had most of his Vascular procedures done by Dr. James at [facility] and given his complexity of vascular issues recommendation was made to transfer the patient to [facility]. Patient accepted for transfer to [facility] by Dr. Flores on 03/07 pending bed availability. Renal function consistently worsening Cr 2.25 on admission to 4.80 despite IV hydration and Lasix IV challenge. Patient is making minimal urine output, there are plans to initiate hemodialysis. 03/10 Patient was seen and examined. Reports no SOB. Currently 90% on 6L. Urine output 160 cc over the past 24H despite Lasix 80 mg IV. He was given 2 amps of bicarb, 10g PO Lokelma x 3 and 10 units of IV insulin x 2 for hyperkalemia yesterday. CBC, BMP done today significant for RBC 4.2, Hg 11.9, Hct 37.6, Na 130, K 5.2, Cl 94, BUN 100, Cr 4.8, Ca 8.3. Eliquis held yesterday for temporary HD catheter. Currently on Rocephin/Azithromycin for PNA. Chest US done yesterday to evaluate right pleural effusion. BCx prelim negative at 24H. Sputum Cx with PMN, mod G+ cocci, mod G+ bacilli, few G- bacilli. Legionella Ag negative. Patient has a bed available at [facility]. Case discussed with the accepting physician. Plans for transfer today. General: non toxic, no distress, appears dyspenic, 6L NC Derm: warm, dry Head: atraumatic, normocephalic, symmetric Eyes: EOMI, no lid lag, anicteric sclera Mouth: no lip lesion, mucus membranes moist Cardiovascular: S1S2 reg, no murmur Lungs: Dereased BS BL, rhonchi R>L, no accessory muscle use Abd: Non distended. Non tender to palpation Ext: no gross muscle atrophy, no edema, no contractures, RLE AKA Neuro: no focal neuro deficits Psych: Alert, oriented, appropriate affect Discharge Diagnosis: Acute hypoxic respiratory failure: Multifactorial. Volume overload from CKD worsened with A-Fib RVR versus PNA. Sepsis due to Pneumonia: Procal 2.12. Rocephin 2g IV QD (D4). Completed 3 days of Azithromycin. BCx prelim negative at 24H. Sputum Cx with PMN, mod G+ cocci, mod G+ bacilli, few G- bacilli. Legionella Ag negative. COVID/RSV/Flu negative. Hyperkalemia: Likely due to worsening renal function. EKG with no T wave abnormalities. Status post Lokelma 10g PO x 3, Lasix 80 mg IV x 1, sodium bicarb amp x 2, Insulin 10 units IV x 2. Hopeful improvement with HD. Acute kidney injury on CKD stage IV: Worsening. Plans for HD tomorrow. Lasix 80 mg IV x 1 03/09. Nephrology on board. Right pleural effusion: Chest US ordered. Lasix 80 mg IV x 1 03/09. Hopeful improvement with HD. Pulmonary on board. Atrial fibrillation with RVR: Eliquis held for temporary HD catheter placement. Coreg 25 mg PO BID. Type II NSTEMI likely due to A-Fib with RVR and sepsis Pseudoaneurysm right groin: Pending transfer to [facility] per Vascular Surgery. Acute COPD exacerbation: DuoNeb QID scheduled and PRN for SOB/wheezing. Prednisone 40 mg PO QD. Resolved: Lactic acidosis This complex discharge took 35 minutes to coordinate and complete. Patient Condition at Discharge: Serious Plan - Discharge Summary Discharge Rx Participant: No New Discharge Prescriptions: No Action Tamsulosin [Flomax] 0.4 mg PO DAILY Cholecalciferol [Vitamin D3 (25 Mcg = 1000 Iu)] 25 mcg PO DAILY amLODIPine [Norvasc] 10 mg PO DAILY Torsemide [Demadex] 40 mg PO DAILY Atorvastatin [Lipitor] 10 mg PO HS Calcium Acetate [PhosLo] 667 mg PO BID-W/MEALS tab hydrALAZINE HCL [Apresoline] 100 mg PO TID Isosorbide Mononitrate ER [Imdur] 30 mg PO DAILY carvediloL [Coreg*] 12.5 mg PO BID-W/MEALS #0 tab Apixaban [Eliquis] 5 mg PO BID Sennosides [Senokot] 17.2 mg PO HS Discharge Medication List Cholecalciferol [Vitamin D3 (25 Mcg = 1000 Iu)] 25 mcg PO DAILY 09/02/23 [History] Tamsulosin [Flomax] 0.4 mg PO DAILY 09/02/23 [History] Calcium Acetate [PhosLo] 667 mg PO BID-W/MEALS tab 09/12/23 [Rx] Isosorbide Mononitrate ER [Imdur] 30 mg PO DAILY 09/17/23 [History] amLODIPine [Norvasc] 10 mg PO DAILY 09/17/23 [History] hydrALAZINE HCL [Apresoline] 100 mg PO TID 09/17/23 [History] carvediloL [Coreg*] 12.5 mg PO BID-W/MEALS #0 tab 09/21/23 [Rx] Apixaban [Eliquis] 5 mg PO BID 10/31/23 [History] Atorvastatin [Lipitor] 10 mg PO HS 03/06/24 [History] Sennosides [Senokot] 17.2 mg PO HS 03/06/24 [History] Torsemide [Demadex] 40 mg PO DAILY 03/06/24 [History] Follow up Appointment(s)/Referral(s): [facility],Clinic [Primary Care Provider] - 1-2 days
--- NOTE | 2024-03-10 17:42 | P.PN ---
Subjective Progress Note Date: 03/10/24 Principal diagnosis: Acute hypoxic respiratory failure with fluid overload/congestive heart failure bilateral pleural effusions This is a consultation for this 78-year-old male patient presented to the hospital because of worsening shortness of breath. The patient was found to be in atrial fibrillation with rapid ventricular response. The patient was also found to be hypoxic and the patient did is currently on 5 L of oxygen by nasal cannula and a chest x-ray shows increased bilateral pulmonary filtrates right more than left and there is some increased haziness along the right lung which could be related to an atypical or asymmetric pulmonary edema versus right-sided pleural effusion. Possibility of a right lung pneumonia cannot be completely excluded as the patient is having increased cough and congestion. Nevertheless, the patient's white cell count at 9.9, hemoglobin 14.2 and a platelet count is at 151. Electrolytes show a BUN of 34 with a creatinine of 2.2 with a creatinine is currently up to 3 and a potassium initially 6.7 currently down to 4.9. Sodium is at 137 and currently down to 136. Glucose is 129. Calcium level is at 8.5. Troponins were positive at 0.04 and 0.3 and a proBNP level is 26,200. Total protein is 5.9 with an albumin of 3.7. On a separate note, the patient was complaining of groin pain. Further investigation with an ultrasound of the right groin reveals a 4.6 x 3.1 cm pseudoaneurysm in the right groin and this is obviously palpable and the area is bulging above the skin. There is also evidence of a vascular bypass surgery, and possibly a femorofemoral bypass graft noted in his pelvic area with a positive thrill. The patient currently is resting comfortably in bed. Denies having any significant shortness of breath. He was started on a combination Rocephin and Zithromax. On DuoNeb the regiment [id number]. He was also started on a prednisone burst taper starting with 40 mg p.o. daily. A final decision on admission has not been made as the patient is being considered for transfer to another facility, possibly [facility] [place] for [facility] regarding his right groin pseudoaneurysm. The patient also has history of coronary artery disease with multiple coronary stents in the past, peripheral vascular disease, abdominal aortic aneurysm status post endovascular stent grafting and the patient has chronic kidney disease and earlier this year, the patient was placed on hemodialysis and he was on hemodialysis for few months and currently is off dialysis and he was told that he does not require dialysis anymore. During this current admission, his potassium level was elevated and creatinine is also elevated. In regards to his atrial fibrillation, the patient was placed on a Cardizem drip for rate control. Previous echocardiogram from 09/11/2023 shows a ejection fraction of 50 to 55% with mild increase in the left ventricular wall thickness and moderate to severe biatrial enlargement and mild right ventricular dilatation. Cardiac Lexiscan that was done April 2023 showed a fixed inferior wall defect and a small size apical perfusion defect concerning of an underlying ischemia. Several consultants have already been involved in his care including cardiology and nephrology. He is a chronic smoker. His increased troponin level was considered to be related to A-fib, RVR and type II myocardial ischemia. He is free of any chest pain for now. Cardizem drip has been discontinued and the patient was started on a combination of Coreg for rate control and anticoagulation with Eliquis. On 03/08/2024, patient is being seen in follow-up. The patient is calm and comfortable, remains on 40 of oxygen by nasal cannula with pulse ox of 92%. The patient has no specific complaints. Urine output is quite diminished and the patient's renal function from today shows interval worsening in renal function with a BUN of 67 and creatinine of 4.1. Sodium levels at 131 and the potassium level is at 5.1. Procalcitonin is elevated at 2.12. Nevertheless, there is no clear indication for underlying pneumonia and sepsis. The chest x-ray findings are probably due to CHF and fluid overload and asymmetric pulmonary edema. WBC count 11.1, hemoglobin 11.7. Nephrology is on the case and Demadex was stopped yesterday and urine output remains low. The patient was started on IV fluids with normal citrate of 75 cc an hour. Bladder scan was negative for urine retention. Ultrasound of the kidneys was ordered. Will continue to follow. May be candidate for renal replacement therapy. At the same time, the patient is being considered for transfer to [facility] regarding the pseudoaneurysm that has been noted earlier. 03/09/2024, patient is feeling slightly more short of breath compared to yesterday. Noted his urine output is quite diminished and the patient has developed also worsening renal function. Chest x-ray showing an increase in the right-sided pleural effusion and there is also some background pulm vessel congestion. He remains on 40 Suboxone by nasal cannula. He is being considered to be reinitiated on hemodialysis and nephrology on the case. He remains in atrial fibrillation. At the same time, there is some efforts to transfer this patient to [facility] regarding the right groin pseudoaneurysm. The white cell count is at 12 with a hemoglobin 12 and a platelet count of 162. Potassium is at 5.8 and sodium is at 131. BUN is 84 with a creatinine of 4.7. The patient was started also on diuretics and he will be given IV Lasix. The rest of the medications remain unchanged. No other complaints otherwise for now. IV fluids will also be cut down to KVO and the patient's hyperkalemia will be treated with Lokelma. Patient was seen today on 03/10/24, seems to be comfortable, patient is being considered for hemodialysis, his chest x-ray and ultrasound showed small pleural effusion, not large enough to consider thoracentesis at this point. In addition considering the patient is being considered for hemodialysis, and nephrology is addressing this issue, I have no plans to perform thoracentesis on this patient. In the meantime the patient continues to have fluid at KVO, and he is receiving treatment for his hyperkalemia. WBC count is 8.6 hemoglobin is 11.9 potassium is 5.2 BUN is 100 creatinine 4.80 Objective - Vital Signs Vital signs: Vital Signs Temp 98.4 F 03/10/24 16:00 Pulse 90 03/10/24 16:18 Resp 18 03/10/24 16:18 BP 136/80 03/10/24 16:00 Pulse Ox 91 L 03/10/24 16:00 FiO2 Intake & Output 03/09/24 03/10/24 03/10/24 18:59 06:59 18:59 Intake Total 240 722 220 Output Total 40 120 Balance 200 602 220 Weight 72.7 kg Intake: Oral 240 722 220 Output: Urine 40 120 Other: Voiding Method Indwelling Catheter Indwelling Catheter Indwelling Catheter # Voids 1 # Bowel Movements 1 - Exam Gen: Reveals 78-year-old white male on 5 L nasal cannula, not in distress Eyes: PERRL, no scleral injection or icterus Head exam was generally normal. There was no scleral icterus or corneal arcus. Mucous membranes were moist. Neck: no tracheal deviation, full range of motion Resp: Diminished breath sounds along with scattered rhonchi and crackles in the right lung compared to the left. CVS: good distal perfusion x 4, bilateral pitting edema, irregular rhythm consistent with atrial fibrillation. GI: Soft nontender no guarding no rebound no guarding MSK: no clubbing, no cyanosis, no noted contractures of extremities, and the patient has an above-knee amputation right lower extremity. Pulses lower extremity on the left is quite diminished. Skin: no noted rashes Neuro: Alert oriented x 3 no gross focal deficit Psych: Normal mood affect and no mental status examination - Labs CBC & Chem 7: 03/10/24 06:06 03/10/24 06:06 Labs: Abnormal Lab Results - Last 24 Hours (Table) 03/09/24 03/10/24 03/10/24 Range/Units 19:14 06:06 06:06 RBC 4.20 L (4.30-5.90) m/uL Hgb 11.9 L (13.0-17.5) gm/dL Hct 37.6 L (39.0-53.0) % Plt Count 139 L (150-450) k/uL Sodium 130 L (137-145) mmol/L Potassium 5.5 H 5.2 H (3.5-5.1) mmol/L Chloride 94 L (98-107) mmol/L BUN 100 H (9-20) mg/dL Creatinine 4.80 H (0.66-1.25) mg/dL Calcium 8.3 L (8.4-10.2) mg/dL Microbiology - Last 24 Hours (Table) 03/08/24 07:34 Blood Culture - Preliminary Blood 03/09/24 08:01 Gram Stain - Preliminary Sputum Sputum Culture - Preliminary Assessment and Plan Assessment: Impression: Acute hypoxic respiratory failure, suspect volume overload/CHF with development of bilateral pleural effusions Chronic atrial fibrillation presenting with A-fib with RVR, rates under better control and the patient is on anticoagulants. Chronic kidney disease stage III with previous need for hemodialysis. 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 Will continue to monitor and follow in the meantime. Time with Patient: Less than 30
[2024-03-10 19:25] VITALS: BP 149/81; PULSE 78; RESP 20; TEMP 97.8
--- NOTE | 2024-03-25 13:36 | CDI ---
Documentation Clarification Form Date: 03/25/2024 01:19:42 PM From: Shreya Thakur Admit Date: 03/06/2024 08:33:00 PM Patient Name: Joaquin Fofana Visit Number: [id number] Discharge Date: 03/10/2024 08:17:00 PM ATTENTION: The Clinical Documentation Specialists (CDI) and [facility] Coding Staff appreciate your assistance in clarifying documentation. Please respond to the clarification below the line at the bottom and electronically sign. The CDI & [facility] Coding staff will review the response and follow-up if needed. Please note: Queries are made part of the Legal Health Record. If you have any questions, please contact the author of this message via ITS. Doctor/Provider: Lee Rodriguez documentation has been found in the medical record. As attending physician, please provide clarification. Per Query response "Other condition, although the patient was started on IV antibiotics for likely pneumonia. I do not believe he was septic. The tachycardia is from Afib and RVR." Per DCS: "Sepsis, due to Pneumonia." Per PN : "Type II NSTEMI likely due to sepsis." History/Risk Factors: Patient with pneumonia. Clinical Indicators: Elevated WBC's 12.4 and 11.1. Pulse rate 170. Lactic acidosis 3.3 Treatment: Rocephin and Azithromycin Please clarify which diagnosis is most appropriate: [ x ] Sepsis due to pneumonia [ ] Sepsis ruled out [ ] Other (please specify) [ ] Unable to determine MTDD
== END 2024-03-10 20:17 | disposition home or self-care (01) | DRG 871 ==
LOC: EC 19:13 → 3SCARD 20:33
PROVIDERS: ADMIT Internal Medicine; ATTEND Internal Medicine
DX: A41.9 Sepsis, unspecified organism (principal); I21.A1 Myocardial infarction type 2; J18.9 Pneumonia, unspecified organism; J96.01 Acute respiratory failure with hypoxia; I50.33 Acute on chronic diastolic (congestive) heart failure; N17.0 Acute kidney failure with tubular necrosis; N18.6 End stage renal disease; E87.20 Acidosis, unspecified; I13.2 Hypertensive heart and chronic kidney disease with heart failure and with stage 5 chronic kidney disease, or end stage renal disease; I48.19 Other persistent atrial fibrillation; J44.0 Chronic obstructive pulmonary disease with (acute) lower respiratory infection; J44.1 Chronic obstructive pulmonary disease with (acute) exacerbation; E78.5 Hyperlipidemia, unspecified; E87.5 Hyperkalemia; F17.200 Nicotine dependence, unspecified, uncomplicated; F32.A Depression, unspecified; F41.9 Anxiety disorder, unspecified; K57.30 Diverticulosis of large intestine without perforation or abscess without bleeding; I25.10 Atherosclerotic heart disease of native coronary artery without angina pectoris; I71.40 Abdominal aortic aneurysm, without rupture, unspecified; Z89.611 Acquired absence of right leg above knee; I72.8 Aneurysm of other specified arteries; I73.9 Peripheral vascular disease, unspecified; N42.9 Disorder of prostate, unspecified; J20.9 Acute bronchitis, unspecified; M19.90 Unspecified osteoarthritis, unspecified site; K21.9 Gastro-esophageal reflux disease without esophagitis; F43.10 Post-traumatic stress disorder, unspecified; G47.33 Obstructive sleep apnea (adult) (pediatric); H91.90 Unspecified hearing loss, unspecified ear; Z95.5 Presence of coronary angioplasty implant and graft; Z86.718 Personal history of other venous thrombosis and embolism; Z20.822 Contact with and (suspected) exposure to COVID-19; Z79.01 Long term (current) use of anticoagulants; Z79.899 Other long term (current) drug therapy; Z86.73 Personal history of transient ischemic attack (TIA), and cerebral infarction without residual deficits
CPT/HCPCS: 36415; 51798; 71045; 76604; 76770; 80048; 80053; 82803; 83605; 83735; 83880; 84132; 84145; 84484; 85025; 85027; 85610; 85730; 86706; 87040; 87070; 87205; 87340; 87449; 87636; 93005; 94640; 94760; 96365; 96366; 96367; 96368; 96375; 99291

== ENCOUNTER → 2024-06-23 | Outpatient (CLI) | payer MEDICARE, BC ==
--- NOTE | 2024-06-23 12:41 | US ---
EXAMINATION TYPE: US venous doppler duplex UE RT DATE OF EXAM: 06/23/2024 COMPARISON: 06/23/2024 CLINICAL INDICATION: Male, 78 years old with history of I80.10 DVT; History of DVT. Patient on blood thinner TECHNIQUE: Grayscale, color Doppler and spectral Doppler imaging of the upper extremity. SIDE PERFORMED: right FINDINGS: Right Arm: Internal echoes right IJV. appears to be improving from prior exams. Grayscale, color doppler, spectral doppler imaging performed of the deep veins of the upper extremiti es. IMPRESSION: Persistent internal echoes within the internal jugular vein compatible with thrombus. [facility], , 06/23/2024 12:38 PM
--- NOTE | 2024-06-23 12:54 | US ---
EXAMINATION TYPE: US venous doppler duplex LE BI DATE OF EXAM: 06/23/2024 11:04 AM COMPARISON: NONE CLINICAL INDICATION: Male, 78 years old with history of I80.10 DVT; History of DVT. Patient on blood thinner. Right above knee amputation, Pain TECHNIQUE: The lower extremity deep venous system is examined utilizing real time linear array sonog elias with graded compression, color doppler sonography, and spectral doppler. SIDE PERFORMED: bilateral FINDINGS: VESSELS IMAGED: Common Femoral Vein Deep Femoral Vein Greater Saphenous Vein * Femoral Vein Popliteal Vein Small Saphenous Vein * Proximal Calf Veins (* superficial vessels) Right Leg: appearance of chronic DVT as on prior exam. thready flow with partial compression, Right above knee amputation. Color Doppler imaging shows patency of the vessels. Spectral waveforms are wit hin normal limits. Left Leg: No evidence of DVT as visualized, Color Doppler imaging shows patency of the vessels. Spec tral waveforms are within normal limits. *Technical limitations due to arterial surgical history Right groin arterial finding as seen on prior exam IMPRESSION: Chronic DVT in the right leg, no evidence for left deep vein thrombosis. [facility], , 06/23/2024 12:52 PM
== END | disposition home or self-care (01) ==
LOC: RADUSWWP 10:24
PROVIDERS: ATTEND Internal Medicine Hematology & Oncology
DX: I80.10 Phlebitis and thrombophlebitis of unspecified femoral vein (principal); D68.59 Other primary thrombophilia; J44.9 Chronic obstructive pulmonary disease, unspecified; N18.9 Chronic kidney disease, unspecified
CPT/HCPCS: 93970

== ENCOUNTER 2024-08-18 18:27 | Inpatient (IN) | payer MEDICARE, BC ==
--- NOTE | 2024-08-18 18:54 | ED ---
General Adult HPI - General Source: patient, RN notes reviewed, old records reviewed <Christopher Hernandez - Last Filed: 08/18/24 21:08> <Christopher De Anda - Last Filed: 08/19/24 02:28> - General Stated complaint: AMS Time Seen by Provider: 08/18/24 18:35 - History of Present Illness Initial comments: This is a 79-year-old male who presents to the emergency department with history from EMS because patient is unable to give us any history. According to EMS he is altered mentally and also was incontinent of urine and presents with a fever. Patient himself has no ability to give us any history at this time there is no caregiver or family with him at this time. (Christopher Hernandez) - Related Data Home Medications Medication Instructions Recorded Confirmed Tamsulosin [Flomax] 0.4 mg PO DAILY 09/02/23 08/18/24 amLODIPine [Norvasc] 10 mg PO DAILY 09/17/23 08/18/24 Apixaban [Eliquis] 5 mg PO BID 10/31/23 08/18/24 Acetaminophen Tab [Tylenol] 325 mg PO QID 08/18/24 08/18/24 Aspirin EC [Ecotrin Low Dose] 81 mg PO DAILY 08/18/24 08/18/24 Atorvastatin [Lipitor] 10 mg PO HS 08/18/24 08/18/24 Finasteride [Proscar] 5 mg PO DAILY 08/18/24 08/18/24 Furosemide [Lasix] 30 mg PO DAILY 08/18/24 08/18/24 Gabapentin [Neurontin] 300 mg PO TID 08/18/24 08/18/24 carvediloL [Coreg] 25 mg PO BID 08/18/24 08/18/24 Allergies Allergy/AdvReac Type Severity Reaction Status Date / Time No Known Allergies Allergy Verified 08/18/24 19:22 Review of Systems ROS Other: All systems not noted in ROS Statement are negative. <Christopher Hernandez - Last Filed: 08/18/24 21:08> ROS Other: All systems not noted in ROS Statement are negative. <Christopher De Anda - Last Filed: 08/19/24 02:28> ROS Statement: Those systems with pertinent positive or pertinent negative responses have been documented in the HPI. Past Medical History Past Medical History: Atrial Fibrillation, Deep Vein Thrombosis (DVT), GERD/Reflux, Hearing Disorder / Deafness, Hyperlipidemia, Osteoarthritis (OA), Prostate Disorder, Sleep Apnea/CPAP/BIPAP Additional Past Medical History / Comment(s): DVT Last Myocardial Infarction Date:: UNKNOWN History of Any Multi-Drug Resistant Organisms: None Reported Past Surgical History: Heart Catheterization With Stent Additional Past Surgical History / Comment(s): Femoral bypass right and left, re moved steel from right lung and retired up diaphram, right above knee amputee Past Anesthesia/Blood Transfusion Reactions: No Reported Reaction Date of Last Stent Placement:: UNKNOWN Past Psychological History: Depression, PTSD Smoking Status: Former smoker Past Alcohol Use History: None Reported Past Drug Use History: None Reported - Past Family History Mother Family Medical History: Myocardial Infarction ([place]) Father Family Medical History: Dementia <Christopher Hernandez - Last Filed: 08/18/24 21:08> General Exam <Christopher Hernandez - Last Filed: 08/18/24 21:08> General appearance: alert, in no apparent distress Head exam: Present: atraumatic, normocephalic, normal inspection Eye exam: Present: normal appearance, PERRL, EOMI. Absent: scleral icterus, conjunctival injection, periorbital swelling ENT exam: Present: normal exam, mucous membranes moist Neck exam: Present: normal inspection. Absent: tenderness, meningismus, lymphadenopathy Respiratory exam: Present: normal lung sounds bilaterally, wheezes. Absent: respiratory distress, rales, rhonchi, stridor Cardiovascular Exam: Present: normal rhythm, bradycardia, normal heart sounds. Absent: systolic murmur, diastolic murmur, rubs, gallop, clicks GI/Abdominal exam: Present: soft, normal bowel sounds. Absent: distended, tenderness, guarding, rebound, rigid Extremities exam: Present: normal inspection, full ROM, normal capillary refill. Absent: tenderness, pedal edema, joint swelling, calf tenderness Back exam: Present: normal inspection Neurological exam: Present: alert, oriented X3, CN II-XII intact Psychiatric exam: Present: normal affect, normal mood Skin exam: Present: warm, dry, intact, normal color. Absent: rash <Christopher De Anda - Last Filed: 08/19/24 02:28> - General Exam Comments Initial Comments: GENERAL: Patient is well-developed and well-nourished. Patient is nontoxic and well- hydrated and is in no acute distress. ENT: Neck is soft and supple. No significant lymphadenopathy is noted. Oropharynx is clear. Moist mucous membranes. Neck has full range of motion without eliciting any pain. EYES: The sclera were anicteric and conjunctiva were pink and moist. Extraocular movements were intact and pupils were equal round and reactive to light. Eyelids were unremarkable. PULMONARY: Unlabored respirations. Good breath sounds bilaterally. No audible rales rhonchi or wheezing was noted. CARDIOVASCULAR: There is a regular rate and rhythm without any murmurs gallops or rubs. ABDOMEN: Soft and nontender with normal bowel sounds. SKIN: Skin is clear with no lesions or rashes and otherwise unremarkable. NEUROLOGIC: Patient is alert and oriented 1. Cranial nerves II through XII are grossly intact. Motor and sensory are also intact. Normal speech, volume and content. Symmetrical smile. MUSCULOSKELETAL: Normal extremities with adequate strength and full range of motion. Patient has an AKA on the right patient pulses on the left are unable to be fell however he does have a capillary refill at 2 seconds and the foot is reasonably warm LYMPHATICS: No significant lymphadenopathy is noted PSYCHIATRIC: Unable to evaluate this time (Christopher Hernandez) Course <Christopher De Anda - Last Filed: 08/19/24 02:28> Vital Signs 08/18/24 08/18/24 08/19/24 18:33 20:50 01:11 Temperature 100.2 F H 99.0 F 97.6 F Pulse Rate 66 55 L 54 L Respiratory 20 19 19 Rate Blood Pressure 191/86 182/91 143/71 O2 Sat by Pulse 97 96 98 Oximetry 08/19/24 01:35 Temperature Pulse Rate 35 L Respiratory Rate Blood Pressure O2 Sat by Pulse Oximetry - Reevaluation(s) Reevaluation #1: 08/19/24 02:27 Medical records reviewed (Christopher De Anda) Reevaluation #2: 08/19/24 02:27 Patient sleeping throughout ER stay, he is arousable (Christopher De Anda) Reevaluation #3: 08/19/24 02:27 Patient informed of results questions answered (Christopher De Anda) Reevaluation #4: Differential Fever: Pneumonia, viral URI, endocarditis, myocarditis, pericarditis, otitis, sinusitis, peritonsillar Abscess, retropharyngeal Abscess, epiglottitis, peritonitis, appendicitis, Ping cystitis, diverticulitis, hepatitis, colitis, UTI, PID, TOA, pyelonephritis, prostatitis, epididymitis, meningitis, encephalitis, pulmonary embolism, CVA, thyroid storm, pancreatitis, adrenal crisis, cavernous sinus thrombosis, this is not meant to be an all-inclusive list. Differential Altered Mental Status: Hypoglycemia, DKA, hypercapnia, ETOH, overdose, CO poisoning, trauma, myxedema coma, HTN encephalopathy, infection, encephalitis, psychosis, intercranial hemorrhage, hepatic encephalopathy, meningitis, CVA, this is not meant to be an all-inclusive list (Christopher De Anda) - Consultations Consultation #1: Spoke with sound who agrees to admit this patient (Christopher De Anda) Medical Decision Making - Lab Data Result diagrams: 08/18/24 19:12 08/18/24 19:12 <Christopher Hernandez - Last Filed: 08/18/24 21:08> - Lab Data Result diagrams: 08/18/24 19:12 08/18/24 19:12 - Radiology Data Radiology results: report reviewed (Chest x-ray is negative for acute disease CT brain is negative for acute disease), image reviewed <Christopher De Anda - Last Filed: 08/19/24 02:28> - Medical Decision Making EKG is interpreted by myself. EKG shows atrial fibrillation at 63 bpm QRS 114 QT interval 369 QTc is 375. Patient's EKG shows no ST segment elevation or depression. Was pt. sent in by a medical professional or institution (, PA, BEET TOPPER, urgent care, hospital, or group home...) When possible be specific @ -No Did you speak to anyone other than the patient for history (EMS, parent, family, police, friend...)? What history was obtained from this source @ -No Did you review nursing and triage notes (agree or disagree)? Why? @ -I reviewed and agree with nursing and triage notes Were old charts reviewed (outside hosp., previous admission, EMS record, old EKG, old radiological studies, urgent care reports/EKG's, group home records)? Report findings @ -No old charts were reviewed Differential Diagnosis? @ -Differential Altered Mental Status: Hypoglycemia, DKA, hypercapnia, ETOH, overdose, CO poisoning, trauma, myxedema coma, HTN encephalopathy, infection, encephalitis, psychosis, intercranial he morrhage, hepatic encephalopathy, meningitis, CVA, this is not meant to be an all-inclusive list EKG interpreted by me (3pts min.). @ -As above X-rays interpreted by me (1pt min.). @ -None done CT interpreted by me (1pt min.). @ -None done U/S interpreted by me (1pt. min.). @ -None done What testing was considered but not performed or refused? (CT, X-rays, U/S, labs)? Why? @ -None What meds were considered but not given or refused? Why? @ -None Did you discuss the management of the patient with other professionals (professionals i.e. , PA, BEET TOPPER, lab, RT, psych nurse, social services specialist, electrical appliance servicer, t eacher, minesweeping officer, case picker)? Give summary @ -No Was smoking cessation discussed for >3mins.? @ -No Was critical care preformed (if so, how long)? @ -No Were there social determinants of health that impacted care today? How? (Homelessness, low income, unemployed, alcoholism, drug addiction, transportation, low edu. Level, literacy, decrease access to med. care, prison, rehab)? @ -No Was there de-escalation of care discussed even if they declined (Discuss DNR or withdrawal of care, Hospice)? DNR status @ -No What co-morbidities impacted this encounter? (DM, HTN, Smoking, COPD, CAD, Cance r, CVA, ARF, Chemo, Hep., AIDS, mental health diagnosis, sleep apnea, morbid obesity)? @ -None Was patient admitted / discharged? Hospital course, mention meds given and route, prescriptions, significant lab abnormalities, going to OR and other pertinent info. @ -Dr. De Anda will be taking over the care of this patient at 9 PM (Christopher Hernandez) 79 male to the ER for evaluation of fever and altered mental status placed on antibiotics, patient will be admitted for further supportive care (Christopher De Anda) - Lab Data Lab Results 08/18/24 08/18/24 08/18/24 Range/Units 19:12 19:12 19:12 WBC 8.5 (3.8-10.6) k/uL RBC 5.90 (4.30-5.90) m/uL Hgb 16.6 (13.0-17.5) gm/dL Hct 53.8 H (39.0-53.0) % MCV 91.2 (80.0-100.0) fL MCH 28.1 (25.0-35.0) pg MCHC 30.8 L (31.0-37.0) g/dL RDW 15.7 H (11.5-15.5) % Plt Count 154 (150-450) k/uL MPV 8.0 Neutrophils % 83 % Lymphocytes % 10 % Monocytes % 4 % Eosinophils % 1 % Basophils % 0 % Neutrophils # 7.1 (1.3-7.7) k/uL Lymphocytes # 0.9 L (1.0-4.8) k/uL Monocytes # 0.4 (0-1.0) k/uL Eosinophils # 0.1 (0-0.7) k/uL Basophils # 0.0 (0-0.2) k/uL Hypochromasia Slight PT 11.2 (10.0-12.5) sec INR 1.0 (<1.2) APTT 24.6 (22.0-30.0) sec Sodium (137-145) mmol/L Potassium (3.5-5.1) mmol/L Chloride (98-107) mmol/L Carbon Dioxide (22-30) mmol/L Anion Gap mmol/L BUN (9-20) mg/dL Creatinine (0.66-1.25) mg/dL Est GFR (CKD-EPI)AfAm (>60 ml/min/1.73 sqM) Est GFR (CKD-EPI)NonAf (>60 ml/min/1.73 sqM) Glucose (74-99) mg/dL Plasma Lactic Acid Aiden (0.7-2.0) mmol/L Calcium (8.4-10.2) mg/dL Total Bilirubin (0.2-1.3) mg/dL AST (17-59) U/L ALT (4-49) U/L Alkaline Phosphatase (38-126) U/L Total Protein (6.3-8.2) g/dL Albumin (3.5-5.0) g/dL Urine Color Light Yellow Urine Appearance Clear (Clear) Urine pH 8.0 (5.0-8.0) Ur Specific [place] 1.011 (1.001-1.035) Urine Protein 1+ H (Negative) Urine Glucose (UA) Negative (Negative) Urine Ketones Trace H (Negative) Urine Blood Negative (Negative) Urine Nitrite Negative (Negative) Urine Bilirubin Negative (Negative) Urine Urobilinogen <2.0 (<2.0) mg/dL Ur Leukocyte Esterase Negative (Negative) Urine RBC 6 H (0-5) /hpf Urine WBC 2 (0-5) /hpf Urine Mucus Rare H (None) /hpf Urine Yeast (Budding) Rare H (None) /hpf Influenza Type A (PCR) (Not Detectd) Influenza Type B (PCR) (Not Detectd) RSV (PCR) (Not Detectd) SARS-CoV-2 (PCR) (Not Detectd) 08/18/24 08/18/24 08/18/24 Range/Units 19:12 19:12 19:12 WBC (3.8-10.6) k/uL RBC (4.30-5.90) m/uL Hgb (13.0-17.5) gm/dL Hct (39.0-53.0) % MCV (80.0-100.0) fL MCH (25.0-35.0) pg MCHC (31.0-37.0) g/dL RDW (11.5-15.5) % Plt Count (150-450) k/uL MPV Neutrophils % % Lymphocytes % % Monocytes % % Eosinophils % % Basophils % % Neutrophils # (1.3-7.7) k/uL Lymphocytes # (1.0-4.8) k/uL Monocytes # (0-1.0) k/uL Eosinophils # (0-0.7) k/uL Basophils # (0-0.2) k/uL Hypochromasia PT (10.0-12.5) sec INR (<1.2) APTT (22.0-30.0) sec Sodium 132 L (137-145) mmol/L Potassium 4.2 (3.5-5.1) mmol/L Chloride 95 L (98-107) mmol/L Carbon Dioxide 29 (22-30) mmol/L Anion Gap 8 mmol/L BUN 14 (9-20) mg/dL Creatinine 0.88 (0.66-1.25) mg/dL Est GFR (CKD-EPI)AfAm >90 (>60 ml/min/1.73 sqM) Est GFR (CKD-EPI)NonAf 83 (>60 ml/min/1.73 sqM) Glucose 104 H (74-99) mg/dL Plasma Lactic Acid Aiden 1.0 (0.7-2.0) mmol/L Calcium 9.3 (8.4-10.2) mg/dL Total Bilirubin 1.7 H (0.2-1.3) mg/dL AST 19 (17-59) U/L ALT 14 (4-49) U/L Alkaline Phosphatase 75 (38-126) U/L Total Protein 6.9 (6.3-8.2) g/dL Albumin 4.3 (3.5-5.0) g/dL Urine Color Urine Appearance (Clear) Urine pH (5.0-8.0) Ur Specific [place] (1.001-1.035) Urine Protein (Negative) Urine Glucose (UA) (Negative) Urine Ketones (Negative) Urine Blood (Negative) Urine Nitrite (Negative) Urine Bilirubin (Negative) Urine Urobilinogen (<2.0) mg/dL Ur Leukocyte Esterase (Negative) Urine RBC (0-5) /hpf Urine WBC (0-5) /hpf Urine Mucus (None) /hpf Urine Yeast (Budding) (None) /hpf Influenza Type A (PCR) Not Detected (Not Detectd) Influenza Type B (PCR) Not Detected (Not Detectd) RSV (PCR) Not Detected (Not Detectd) SARS-CoV-2 (PCR) Not Detected (Not Detectd) Disposition <Christopher Hernandez - Last Filed: 08/18/24 21:08> Is patient prescribed a controlled substance at d/c from ED?: No Time of Disposition: 02:30 <Christopher De Anda - Last Filed: 08/19/24 02:28> Clinical Impression: Altered mental status, Multiple falls, COPD (chronic obstructive pulmonary disease), Fever, Acute bronchitis with COPD Disposition: ADMITTED IP TO THIS HOSP Condition: Fair Referrals: Jignesh Renteria DO [Primary Care Provider] - 1-2 days
[2024-08-18 19:33] LABS: Basophils % (A) 0 %; Eosinophils # (A) 0.1 k/uL (0-0.7); Eosinophils % (A) 1 %; HCT 53.8 % (39.0-53.0); HGB 16.6 gm/dL (13.0-17.5); Hypochromasia Slight; Lymphocytes # (A) 0.9 k/uL (1.0-4.8); Lymphocytes % (A) 10 %; MCH 28.1 pg (25.0-35.0); MCHC 30.8 g/dL (31.0-37.0); MCV 91.2 fL (80.0-100.0); Monocytes # (A) 0.4 k/uL (0-1.0); Monocytes % (A) 4 %; Neutrophils # (A) 7.1 k/uL (1.3-7.7); Neutrophils % (A) 83 %; Platelet Count 154 k/uL (150-450); RDW 15.7 % (11.5-15.5); WBC 8.5 k/uL (3.8-10.6)
[2024-08-18] MEDS: cefTRIAXone IN SWFI 1,000 MG/10 ML SYRINGE IVP STA (19:39)
[2024-08-18] MEDS: LACTATED RINGERS 1,000 ML IV ONE (19:39)
[2024-08-18 19:47] LABS: ALT 14 U/L (4-49); AST 19 U/L (17-59); African American GFR (CKD) >90 (>60 ml/min/1.73 sqM); Albumin 4.3 g/dL (3.5-5.0); Alkaline Phosphatase 75 U/L (38-126); Anion Gap 8 mmol/L; Blood Urea Nitrogen 14 mg/dL (9-20); Calcium 9.3 mg/dL (8.4-10.2); Carbon Dioxide 29 mmol/L (22-30); Chloride 95 mmol/L (98-107); Glucose 104 mg/dL (74-99); Non-African American GFR(CKD) 83 (>60 ml/min/1.73 sqM); Potassium 4.2 mmol/L (3.5-5.1); Sodium 132 mmol/L (137-145); Total Bilirubin 1.7 mg/dL (0.2-1.3); Total Protein 6.9 g/dL (6.3-8.2)
[2024-08-18] MEDS: IBUPROFEN 600 MG TAB PO STA (19:48)
[2024-08-18] MEDS: ACETAMINOPHEN TAB 500 MG TAB PO STA (19:48)
[2024-08-18 19:50] LABS: Partial Thromboplastin Time 24.6 sec (22.0-30.0); Prothrombin Time 11.2 sec (10.0-12.5)
[2024-08-18 20:07] LABS: Influenza A Not Detected (Not Detectd); Influenza B Not Detected (Not Detectd); RSV Not Detected (Not Detectd)
[2024-08-18 21:24] LABS: Appearance,Urine Clear (Clear); Bilirubin,Urine Negative (Negative); Blood,Urine Negative (Negative); Budding Yeast,Urine Rare /hpf; Color,Urine Light Yellow; Glucose,Urine (UA) Negative (Negative); Ketones,Urine Trace (Negative); Leukocyte Esterase,Urine Negative (Negative); Mucus,Urine Rare /hpf; Nitrite,Urine Negative (Negative); Protein,Urine 1+ (Negative); RBC,Urine 6 /hpf (0-5); Specific Gravity,Urine 1.011 (1.001-1.035); Urobilinogen,Urine <2.0 mg/dL (<2.0); WBC,Urine 2 /hpf (0-5)
--- NOTE | 2024-08-18 21:59 | XR ---
EXAMINATION TYPE: XR chest 2V DATE OF EXAM: 08/18/2024 9:01 PM CLINICAL INDICATION:Male, 79 years old with history of Fever; H COMPARISON: Chest radiographs 03/09/2024. TECHNIQUE: XR chest 2V Frontal view of the chest. FINDINGS: Lungs/Pleura: Mild elevation of the right hemidiaphragm. No pneumothorax. Pulmonary vascularity: Mild pulmonary vascular congestion. Heart/mediastinum: Cardiomediastinal silhouette is unremarkable. Musculoskeletal: No acute osseous pathology. Other findings: Similar scattered radiodense foci along the right hemithorax and upper abdomen. IMPRESSION: Mild pulmonary vascular congestion with interstitial prominence may relate to pulmonary edema. [facility], , 08/18/2024 9:56 PM
[2024-08-19] MEDS ORDERED: MORPHINE SULFATE 4 MG/ML SYRINGE IV PRN (02:23)
[2024-08-19] MEDS ORDERED: ONDANSETRON 4 MG/2 ML VIAL IVP PRN (02:23)
[2024-08-19] MEDS ORDERED: IPRATROPIUM-ALBUTEROL 3 ML NEB INHALATION PRN (02:28)
[2024-08-19] MEDS: SODIUM CHLORIDE 0.9% 1,000 ML IV ONE (02:57)
[2024-08-19] MEDS: methylPREDNISolone SOD SUCCI 125 MG/2 ML VIAL IV STA (02:59)
[2024-08-19] MEDS: ACETAMINOPHEN IV (For NPO) 1,000 MG in EMPTY BAG 1 BAG IVPB ONE (03:01)
[2024-08-19] MEDS: IBUPROFEN IV 800 MG in SODIUM CHLORIDE 0.9% 250 ML IV ONE (03:21)
[2024-08-19] MEDS: IPRATROPIUM-ALBUTEROL 3 ML NEB INHALATION STA (03:21)
--- NOTE | 2024-08-19 03:21 | CT ---
EXAM: CT Head Without Intravenous Contrast CLINICAL HISTORY: ITS.REASON CT Reason: ams TECHNIQUE: Axial computed tomography images of the head/brain without intravenous contrast. CTDI is 49.1 mGy and DLP is 1141.4 mGy-cm. This CT exam was performed using one or more of the following dose reduction techniques: automated exposure control, adjustment of the mA and/or kV according to patient size, and/or use of iterative reconstruction technique. COMPARISON: No relevant prior studies available. FINDINGS: Brain: No hemorrhage, herniation, or mass effect. Chronic microvascular ischemic changes. Ventricles: No hydrocephalus. Age related cerebral volume loss. Bones/joints: Unremarkable. Soft tissues: Unremarkable. Sinuses: No air fluid levels. Mastoid air cells: Clear. IMPRESSION: No acute hemorrhage, hydrocephalus, or mass effect.
[2024-08-19] MEDS: SODIUM CHLORIDE 0.9% 1,000 ML IV SCH (03:43)
--- NOTE | 2024-08-19 05:20 | P.HPIM ---
History of Present Illness H&P Date: 08/19/24 Patient is a 79-year-old male with a PMH of paroxysmal A-fib on Eliquis, diastolic CHF, COPD, hypertension, PAD status post right AKA, and hyperlipidemia who presents to the emergency room brought in by granddaughter for confusion. The patient notes that he is not sure why he is in the emergency room. He however denied any active complaints at the time of interview. Denied experiencing chest discomfort, shortness of breath, fever, chills, cough, nausea, vomiting, abdominal pain, diarrhea. CT brain emergency room was unremarkable with chest x-ray showing mild pulmonary vascular congestion. EKG revealed A-fib at [address]/T wave changes noted as reviewed by me. Laboratory evaluation was remarkable for sodium 132, chloride 95, lactic acid 1.0, respiratory viral panel negative, UA unremarkable. The patient did have a Tmax of 100.2 F in the emergency room and had episodes of bradycardia with A-fib as low as 30s. ED documentation reviewed and case discussed with ED provider. Review of systems: Pertinent positives and negatives as discussed in HPI, a complete review of s ystems was performed and all other systems are negative. Physical examination: Vital signs reviewed General: non toxic, no distress, appears at stated age, normal weight Derm: no unusual rashes/lesions, warm Head: atraumatic, normocephalic, symmetric Eyes: EOMI, no lid lag, anicteric sclera, pupils equal round reactive to light ENT: Nose and ears atraumatic Neck: No cervical lymphadenopathy, trachea midline, supple Mouth: no lip lesion, mucus membranes moist Cardiovascular: S1S2 reg, no murmur, positive dorsalis pedis pulse on LLE, no edema, right AKA Lungs: CTA bilateral, no rhonchi, no rales, no accessory muscle use Abdominal: soft, nontender to palpation, no guarding Ext: muscle strength 5 out of 5 in all 4 extremities grossly, no gross muscle atrophy, no contractures, Neuro: CN II-XI grossly intact, no gross focal neuro deficits Psych: Alert, oriented to self and place, not oriented to time Assessment: Altered mental status, unclear etiology Hypochloremic hyponatremia A-fib with SVR Chronic conditions: Diastolic CHF, COPD, hypertension, PAD Imaging: CT brain emergency room was unremarkable with chest x-ray showing mild pulmonary vascular congestion. EKG revealed A-fib at [address]/T wave changes noted as reviewed by me. Data Review: Laboratory evaluation was remarkable for sodium 132, chloride 95, lactic acid 1.0, respiratory viral panel negative, UA unremarkable. The patient did have a Tmax of 100.2 F in the emergency room and had episodes of bradycardia with A- fib as low as 30s. Plan: Neurology consult Fall precautions Judicious use of IV fluids in setting of diastolic CHF Cardiology consulted for A-fib Hold patient's home Coreg for now Resume patient's home Lasix Resume home medications once reconciled DVT prophylaxis: Eliquis The patient is admitted with an anticipated greater than 2 midnight stay for evaluation of Altered mental status CODE STATUS: Full Code Discussed with: Patient Anticipated discharge place: Home Past Medical History Past Medical History: Atrial Fibrillation, Deep Vein Thrombosis (DVT), GERD/Reflux, Hearing Disorder / Deafness, Hyperlipidemia, Osteoarthritis (OA), Prostate Disorder, Sleep Apnea/CPAP/BIPAP Additional Past Medical History / Comment(s): DVT Last Myocardial Infarction Date:: UNKNOWN History of Any Multi-Drug Resistant Organisms: None Reported Past Surgical History: Heart Catheterization With Stent Additional Past Surgical History / Comment(s): Femoral bypass right and left, removed steel from right lung and retired up diaphram, right above knee amputee Past Anesthesia/Blood Transfusion Reactions: No Reported Reaction Date of Last Stent Placement:: UNKNOWN Past Psychological History: Depression, PTSD Smoking Status: Former smoker Past Alcohol Use History: None Reported Past Drug Use History: None Reported - Past Family History Mother Family Medical History: Myocardial Infarction ([place]) Father Family Medical History: Dementia Medications and Allergies Home Medications Medication Instructions Recorded Confirmed Type Tamsulosin [Flomax] 0.4 mg PO DAILY 09/02/23 08/18/24 History amLODIPine [Norvasc] 10 mg PO DAILY 09/17/23 08/18/24 History Apixaban [Eliquis] 5 mg PO BID 10/31/23 08/18/24 History Acetaminophen Tab [Tylenol] 325 mg PO QID 08/18/24 08/18/24 History Aspirin EC [Ecotrin Low Dose] 81 mg PO DAILY 08/18/24 08/18/24 History Atorvastatin [Lipitor] 10 mg PO HS 08/18/24 08/18/24 History Finasteride [Proscar] 5 mg PO DAILY 08/18/24 08/18/24 History Furosemide [Lasix] 30 mg PO DAILY 08/18/24 08/18/24 History Gabapentin [Neurontin] 300 mg PO TID 08/18/24 08/18/24 History carvediloL [Coreg] 25 mg PO BID 08/18/24 08/18/24 History Allergies Allergy/AdvReac Type Severity Reaction Status Date / Time No Known Allergies Allergy Verified 08/18/24 19:22 Physical Exam Vitals: Vital Signs Temp Pulse Resp BP Pulse Ox 08/19/24 04:32 45 L 14 175/81 95 08/19/24 04:09 36 L 08/19/24 03:29 49 L 08/19/24 03:22 49 L 08/19/24 01:35 35 L 08/19/24 01:11 97.6 F 54 L 19 143/71 98 08/18/24 20:50 99.0 F 55 L 19 182/91 96 08/18/24 18:33 100.2 F H 66 20 191/86 97 Intake and Output 08/18/24 08/18/24 08/19/24 14:59 22:59 06:59 Other: Weight 53.977 kg Results CBC & Chem 7: 08/18/24 19:12 08/18/24 19:12 Labs: Abnormal Lab Results - Last 24 Hours (Table) 08/18/24 08/18/24 08/18/24 Range/Units 19:12 19:12 19:12 Hct 53.8 H (39.0-53.0) % MCHC 30.8 L (31.0-37.0) g/dL RDW 15.7 H (11.5-15.5) % Lymphocytes # 0.9 L (1.0-4.8) k/uL Sodium 132 L (137-145) mmol/L Chloride 95 L (98-107) mmol/L Glucose 104 H (74-99) mg/dL Total Bilirubin 1.7 H (0.2-1.3) mg/dL Urine Protein 1+ H (Negative) Urine Ketones Trace H (Negative) Urine RBC 6 H (0-5) /hpf Urine Mucus Rare H (None) /hpf Urine Yeast (Budding) Rare H (None) /hpf
[2024-08-19] MEDS ORDERED: NALOXONE 0.4 MG/ML 1 ML VIAL IV PRN (06:00)
[2024-08-19] MEDS ORDERED: IBUPROFEN 400 MG TAB PO PRN (06:00)
[2024-08-19] MEDS ORDERED: ACETAMINOPHEN TAB 325 MG TAB PO PRN (06:00)
[2024-08-19] MEDS ORDERED: methylPREDNISolone SOD SUCCI 125 MG/2 ML VIAL IV SCH (08:00)
[2024-08-19] MEDS: FUROSEMIDE 20 MG TAB PO SCH (08:46)
[2024-08-19] MEDS: GABAPENTIN 300 MG CAP PO SCH (08:47)
[2024-08-19] MEDS: LOSARTAN 50 MG TAB PO SCH (08:47)
[2024-08-19] MEDS: APIXABAN 5 MG TAB PO SCH (08:47)
[2024-08-19] MEDS: ASPIRIN 81 MG PO SCH (08:47)
[2024-08-19] MEDS: amLODIPine 10 MG TAB PO SCH (08:48)
[2024-08-19] MEDS: FINASTERIDE 5 MG TAB PO SCH (09:24)
[2024-08-19] MEDS: TAMSULOSIN 0.4 MG CAP.ER.24H PO SCH (09:24)
--- NOTE | 2024-08-19 12:03 | P.CRDCN ---
History of Present Illness Consult date: 08/19/24 Reason for Consult (text): Bradycardia, atrial fibrillation History of present illness: This is a 79-year-old male patient of Dr. Siegel with past medical history of right AKA, persistent atrial fibrillation on Eliquis, hypertension, hyperli pidemia, coronary artery disease with multiple stents in the past, PAD with abdominal aortic aneurysm status post EVAR with additional PAD, chronic kidney disease stage IV with history of temporary hemodialysis. We have been asked to evaluate the patient for bradycardia and atrial fibrillation. Apparently, patient was picked up from home due to mental status changes, incontinence of urine and fever. Patient is unable to provide any information. No family is at bedside. Information is obtained from the patient's record. Blood pressure 147/90, heart rate 47, pulse ox 99% on 2 L nasal cannula. Patient is been started on IV Solu-Medrol, IV antibiotics status post 1 L of IV fluids. -EKG: Atrial fibrillation at a ventricular rate of 63 bpm. -Chest x-ray: Mild pulmonary vascular congestion with interstitial prominence may relate to pulmonary edema. -CT brain: No acute hemorrhage, hydrocephalus or mass effect. -Laboratory studies: WBC 8.5, hemoglobin 16, sodium 132, potassium 4.2, crea tinine 0.88. Cepheid viral panel not detected. -Home cardiac medications: Amlodipine 10 mg daily, Eliquis 5 mg twice daily, aspirin 81 mg daily, atorvastatin 10 mg at bedtime, Coreg 25 mg twice daily, Lasix 30 mg daily. -Echocardiogram performed 09/11/2023: EF 50 to 55%, moderate to severe biatrial e nlargement, mild right ventricular dilation, trace mitral regurgitation, no pericardial effusion. Review Of Systems: At the time of my exam: CONSTITUTIONAL: Denies fever or chills. HEENT: Denies blurred vision, vision changes, or eye pain. Denies hemoptysis CARDIOVASCULAR: Denies chest pain. Denies orthopnea. Denies PND. Denies palpitations RESPIRATORY: Denies shortness of breath. GASTROINTESTINAL: Denies abdominal pain. Denies nausea or vomiting. HEMATOLOGIC: Denies bleeding disorders. GENITOURINARY: Denies any blood in urine. SKIN: Denies puritis. Denies rash. Physical examination: Gen: This is a 79-year-old male in no acute distress VS: reviewed HEENT: Head is atraumatic, normocephalic. Pupils equal, round. Sclerae is anicteric. NECK: Supple. No JVD. LUNGS: Clear to auscultation. No wheezes or rhonchi. No intercostal retractions. HEART: Regular rate and rhythm. No murmur. ABDOMEN: Soft No tenderness. EXTREMITIES: Right dozpn-jck-ceju amputation. No left pedal edema. No calf tenderness. NEUROLOGICAL: Patient is confused. Assessment: Metabolic encephalopathy Bradycardia History of right AKA Persistent atrial fibrillation on Eliquis Hypertension Hyperlipidemia Coronary artery disease with prior stents Abdominal aortic aneurysm status post EVAR Chronic kidney disease stage IV with history of temporary hemodialysis Plan: Resume patient's home cardiac medications Hold Coreg for bradycardia and will probably resume at a lower dose Add losartan 50 mg daily Obtain TSH Obtain 2-D echocardiogram and Doppler study to assess cardiac structure and function Further recommendations to follow based upon clinical course Thank you kindly for this consultation. Nurse practitioner note has been reviewed, I agree with documented findings and plan of care. Patient was seen and examined. Past Medical History Past Medical History: Atrial Fibrillation, Deep Vein Thrombosis (DVT), GERD/Reflux, Hearing Disorder / Deafness, Hyperlipidemia, Osteoarthritis (OA), Prostate Disorder, Sleep Apnea/CPAP/BIPAP Additional Past Medical History / Comment(s): DVT Last Myocardial Infarction Date:: UNKNOWN History of Any Multi-Drug Resistant Organisms: None Reported Past Surgical History: Heart Catheterization With Stent Additional Past Surgical History / Comment(s): Femoral bypass right and left, removed steel from right lung and retired up diaphram, right above knee amputee Past Anesthesia/Blood Transfusion Reactions: No Reported Reaction Date of Last Stent Placement:: UNKNOWN Past Psychological History: Depression, PTSD Smoking Status: Former smoker Past Alcohol Use History: None Reported Past Drug Use History: None Reported - Past Family History Mother Family Medical History: Myocardial Infarction ([place]) Father Family Medical History: Dementia Medications and Allergies Home Medications Medication Instructions Recorded Confirmed Type Tamsulosin [Flomax] 0.4 mg PO DAILY 09/02/23 08/18/24 History amLODIPine [Norvasc] 10 mg PO DAILY 09/17/23 08/18/24 History Apixaban [Eliquis] 5 mg PO BID 10/31/23 08/18/24 History Acetaminophen Tab [Tylenol] 325 mg PO QID 08/18/24 08/18/24 History Aspirin EC [Ecotrin Low Dose] 81 mg PO DAILY 08/18/24 08/18/24 History Atorvastatin [Lipitor] 10 mg PO HS 08/18/24 08/18/24 History Finasteride [Proscar] 5 mg PO DAILY 08/18/24 08/18/24 History Furosemide [Lasix] 30 mg PO DAILY 08/18/24 08/18/24 History Gabapentin [Neurontin] 300 mg PO TID 08/18/24 08/18/24 History carvediloL [Coreg] 25 mg PO BID 08/18/24 08/18/24 History Allergies Allergy/AdvReac Type Severity Reaction Status Date / Time No Known Allergies Allergy Verified 08/18/24 19:22 Physical Exam Vitals: Vital Signs Temp Pulse Resp BP Pulse Ox 08/19/24 07:37 50 L 14 98 08/19/24 06:08 50 L 14 173/92 98 08/19/24 04:32 45 L 14 175/81 95 08/19/24 04:09 36 L 08/19/24 03:29 49 L 08/19/24 03:22 49 L 08/19/24 01:35 35 L 08/19/24 01:11 97.6 F 54 L 19 143/71 98 08/18/24 20:50 99.0 F 55 L 19 182/91 96 08/18/24 18:33 100.2 F H 66 20 191/86 97 Intake and Output 08/18/24 08/19/24 08/19/24 22:59 06:59 14:59 Other: Weight 53.977 kg Results 08/18/24 19:12 08/18/24 19:12 Cardiac Enzymes 08/18/24 Range/Units 19:12 AST 19 (17-59) U/L Coagulation 08/18/24 Range/Units 19:12 PT 11.2 (10.0-12.5) sec APTT 24.6 (22.0-30.0) sec CBC 08/18/24 Range/Units 19:12 WBC 8.5 (3.8-10.6) k/uL RBC 5.90 (4.30-5.90) m/uL Hgb 16.6 (13.0-17.5) gm/dL Hct 53.8 H (39.0-53.0) % Plt Count 154 (150-450) k/uL Comprehensive Metabolic Panel 08/18/24 Range/Units 19:12 Sodium 132 L (137-145) mmol/L Potassium 4.2 (3.5-5.1) mmol/L Chloride 95 L (98-107) mmol/L Carbon Dioxide 29 (22-30) mmol/L BUN 14 (9-20) mg/dL Creatinine 0.88 (0.66-1.25) mg/dL Glucose 104 H (74-99) mg/dL Calcium 9.3 (8.4-10.2) mg/dL AST 19 (17-59) U/L ALT 14 (4-49) U/L Alkaline Phosphatase 75 (38-126) U/L Total Protein 6.9 (6.3-8.2) g/dL Albumin 4.3 (3.5-5.0) g/dL Current Medications Generic Name Dose Route Start Last Admin Trade Name Freq PRN Reason Stop Dose Admin Acetaminophen 650 mg 08/19/24 06:00 Acetaminophen Tab 325 Mg Tab PO Q6HR PRN Mild Pain or Fever > 100.5 Albuterol/Ipratropium 3 ml 08/19/24 02:28 Ipratropium-Albuterol 3 Ml Neb INHALATION RT-QID PRN Shortness Of Breath Or Wheezing Amlodipine Besylate 10 mg 08/19/24 09:00 Amlodipine 10 Mg Tab PO DAILY [facility] Apixaban 5 mg 08/19/24 09:00 Apixaban 5 Mg Tab PO BID [facility] Protocol Aspirin 81 mg 08/19/24 09:00 Aspirin 81 Mg PO DAILY [facility] Atorvastatin Calcium 10 mg 08/19/24 21:00 Atorvastatin 10 Mg Tab PO HS [facility] Finasteride 5 mg 08/19/24 09:00 Finasteride 5 Mg Tab PO DAILY [facility] Furosemide 30 mg 08/19/24 09:00 Furosemide 20 Mg Tab PO DAILY [facility] Gabapentin 300 mg 08/19/24 09:00 Gabapentin 300 Mg Cap PO TID [facility] Sodium Chloride 1,000 mls @ 75 mls/hr 08/19/24 02:30 08/19/24 03:43 Saline 0.9% IV 130 mls/hr .[id number] [facility]OR Administration Ibuprofen 400 mg 08/19/24 06:00 Ibuprofen 400 Mg Tab PO Q6HR PRN Mild Pain or Fever > 100.5 Morphine Sulfate 4 mg 08/19/24 02:23 Morphine Sulfate 4 Mg/Ml Syringe IV Q4HR PRN Severe Pain (Scale 7 to 10) Naloxone HCl 0.2 mg 08/19/24 06:00 Naloxone 0.4 Mg/Ml 1 Ml Vial IV Q2M PRN Opioid Reversal Ondansetron HCl 4 mg 08/19/24 02:23 Ondansetron 4 Mg/2 Ml Vial IVP Q8HR PRN Nausea And Vomiting Tamsulosin HCl 0.4 mg 08/19/24 09:00 Tamsulosin 0.4 Mg Cap.Er.24h PO DAILY [facility] Intake and Output 08/18/24 08/19/24 08/19/24 22:59 06:59 14:59 Other: Weight 53.977 kg 08/18/24 19:12 08/18/24 19:12
--- NOTE | 2024-08-19 14:12 | P.CNNES ---
History of Present Illness Consult date: 08/19/24 Requesting physician: Christophe Siegel Reason for Consult: altered mental status History of Present Illness: This is a 79-year-old gentleman presented emergency department on 08/18/2024 for altered mental status. According to the patient his granddaughter checked up on him and he stated that he was not answering questions appropriately as a result patient presented to our facility via EMS. Patient denies of any headache, nausea vomiting, any recent fevers that he is aware of. Denies of any focal deficit. He is feels he is doing drastically better. He resides by himself but his granddaughter checks up on him. Per the ED note patient was altered and had incontinence of the urine and presented with a fever. Patient denies of history of any strokes or seizures in the past. Pvokcfw-zbti-irf blood clot in the righ t lower extremity and had qmgaa-qbu-subf amputation. Does have underlying atrial fibrillation and he is on Eliquis. He also has underlying history of hypertension, peripheral artery disease, COPD, congestive heart failure. Per the primary team's note it seems the patient has peripheral arterial disease in the right lower extremity with [id number]-jud-[id number] amputation. During this hospital visit patient's heart rate was as low as 30s. Some of the workup during this hospital visit: Tmax was 100.2 Fahrenheit and no further fevers. White Blood cell is within normal limits at 8.5 thousand Sodium is 132, AST ALT, creatinine, serum glucose is within normal limits TSH is 0.70 CT of the head is reported as no acute hemorrhage, hydrocephalus or mass effect. I personally reviewed the CT and agree with the report I personally feel the patient had an old encephalomalacia over the right LUIS territory concerning for an old stroke. Review of Systems As per HPI. Past Medical History Past Medical History: Atrial Fibrillation, Deep Vein Thrombosis (DVT), GERD/Reflux, Hearing Disorder / Deafness, Hyperlipidemia, Osteoarthritis (OA), Prostate Disorder, Sleep Apnea/CPAP/BIPAP Additional Past Medical History / Comment(s): DVT Last Myocardial Infarction Date:: UNKNOWN History of Any Multi-Drug Resistant Organisms: None Reported Past Surgical History: Heart Catheterization With Stent Additional Past Surgical History / Comment(s): Femoral bypass right and left, removed steel from right lung and retired up diaphram, right above knee amputee Past Anesthesia/Blood Transfusion Reactions: No Reported Reaction Date of Last Stent Placement:: UNKNOWN Past Psychological History: Depression, PTSD Smoking Status: Former smoker Past Alcohol Use History: None Reported Past Drug Use History: None Reported - Past Family History Mother Family Medical History: Myocardial Infarction ([place]) Father Family Medical History: Dementia Medications and Allergies Home Medications Medication Instructions Recorded Confirmed Type Tamsulosin [Flomax] 0.4 mg PO DAILY 09/02/23 08/18/24 History amLODIPine [Norvasc] 10 mg PO DAILY 09/17/23 08/18/24 History Apixaban [Eliquis] 5 mg PO BID 10/31/23 08/18/24 History Acetaminophen Tab [Tylenol] 325 mg PO QID 08/18/24 08/18/24 History Aspirin EC [Ecotrin Low Dose] 81 mg PO DAILY 08/18/24 08/18/24 History Atorvastatin [Lipitor] 10 mg PO HS 08/18/24 08/18/24 History Finasteride [Proscar] 5 mg PO DAILY 08/18/24 08/18/24 History Furosemide [Lasix] 30 mg PO DAILY 08/18/24 08/18/24 History Gabapentin [Neurontin] 300 mg PO TID 08/18/24 08/18/24 History carvediloL [Coreg] 25 mg PO BID 08/18/24 08/18/24 History Allergies Allergy/AdvReac Type Severity Reaction Status Date / Time No Known Allergies Allergy Verified 08/18/24 19:22 Physical Examination - Vital Signs Vital Signs: Vital Signs Temp Pulse Resp BP Pulse Ox 08/19/24 10:13 53 L 14 138/78 96 08/19/24 08:05 97.4 F L 47 L 14 147/90 99 08/19/24 07:37 50 L 14 98 08/19/24 06:08 50 L 14 173/92 98 08/19/24 04:32 45 L 14 175/81 95 08/19/24 04:09 36 L 08/19/24 03:29 49 L 08/19/24 03:22 49 L 08/19/24 01:35 35 L 08/19/24 01:11 97.6 F 54 L 19 143/71 98 08/18/24 20:50 99.0 F 55 L 19 182/91 96 08/18/24 18:33 100.2 F H 66 20 191/86 97 Intake and Output 08/18/24 08/19/24 08/19/24 22:59 06:59 14:59 Other: Weight 53.977 kg GENERAL: The patient is lying in bed and is not in acute distress. HENT: Supple neck. NEUROLOGICAL: Higher mental function: The patient is awake, alert, oriented to self, place and time. Patient correctly stated the current state in the [facility] as well as the [facility]. Patient is following commands. No aphasia and no neglect. Cranial nerves: The pupils are round, equal and reactive to light and accommodation. Visual wheeler are full to confrontation throughout. Extraocular movement is intact no nystagmus is noted. Facial sensation is normal to touch throughout. The facial strength is normal throughout. Hearing is normal bilaterally to hand rub. Tongue is midline and moved [id number] without any difficulty. No dysarthria is noted. Shoulder shrug is normal bilaterally. Motor: The strength is 5 over 5 throughout. Normal tone and bulk. Has above knee amputation. Cerebellum: Normal finger to nose bilaterally. Sensation: Sensation is normal to touch throughout. Reflexes (right/left): 2+ throughout. Has above knee amputation. Plantars is mute on the left. Results - Laboratory Findings CBC and BMP: 08/18/24 19:12 08/18/24 19:12 Abnormal Lab Findings: Abnormal Labs 08/18/24 08/18/24 08/18/24 19:12 19:12 19:12 Hct 53.8 H MCHC 30.8 L RDW 15.7 H Lymphocytes # 0.9 L Sodium 132 L Chloride 95 L Glucose 104 H Total Bilirubin 1.7 H Urine Protein 1+ H Urine Ketones Trace H Urine RBC 6 H Urine Mucus Rare H Urine Yeast (Budding) Rare H Assessment and Plan Assessment: This is a 79-year-old gentleman who presents the emergency department because of altered mental status and urinary incontinence. Patient states that when his granddaughter checked up on him he was not answering questions appropriately. He feels back to baseline. CT of the head is unremarkable for any acute proces s. Patient had bradycardia as low as 30s. One-time low-grade fever but white blood cell is within normal limits Encephalopathy of unknown etiology. This does not seem meningoencephalitis, since patient is back to baseline quickly and no significant high fever or focality. Patient does not have any focal deficit and unlikely stroke. Unsure if patient bradycardia led to his episode of confusion Bradycardia as low as 30s 1 low-grade fever unknown etiology Underlying atrial fibrillation and is on Eliquis History of peripheral arterial disease status post above the right knee amputation CT of the head I feel the patient has encephalomalacia over the right right [place] territory concerning for old stroke History of diastolic congestive heart failure Hypertension COPD Tobacco use Plan: I ordered a routine EEG I ordered MRI of the brain Ordered ammonia level, vitamin B12 and folate level. Patient is on Eliquis 5 mg twice daily as well as aspirin 81 mg daily. The patient is also on Lipitor 10 mg nightly. Patient was given ceftriaxone by the ED team. Cardiology is consulted Consider infectious disease consultation for unknown because of low-grade fever Will defer the rest of the medical management to primary other specialist Plan discussed with the patient and the primary attending Thank you for the consultation Time with Patient: Greater than 30
--- NOTE | 2024-08-19 21:03 | EEG ---
ELECTROENCEPHALOGRAM REPORT CLINICAL HISTORY: This is a 79-year-old gentleman with altered mental status. The video EEG is obtained to evaluate for seizure epileptiform activity. RELEVANT MEDICATION: Gabapentin. EEG TYPE: This is a routine 21-channel EEG with video using the 10/20 electrode placement system. DESCRIPTION: Wakefulness and drowsiness are obtained. During awake state, the posterior-dominant rhythm consists of [id number] voltage of 9 to 10 hertz activity that is well modulated and well sustained. There is no physiological stage 2 sleep architecture. There is no focal slowing. Interictal and ictal is none. ACTIVATION PROCEDURE: Photic stimulation did not evoke a posterior driving response. There is no abnormality during the photic stimulation. Hyperventilation is not performed. CLINICAL INTERPRETATION: This is a normal routine EEG during awake and drowsy state. There is no focal slowing, epileptiform discharges or seizure on the EEG. A normal EEG does not rule out underlying epilepsy. Clinical correlation is recommended. HERMELINDA / FAUSTO: [id number] /
[2024-08-19] MEDS: ATORVASTATIN 10 MG TAB PO SCH (21:21)
[2024-08-20 07:17] LABS: ALT 12 U/L (4-49); AST 14 U/L (17-59); African American GFR (CKD) >90 (>60 ml/min/1.73 sqM); Albumin 3.1 g/dL (3.5-5.0); Alkaline Phosphatase 48 U/L (38-126); Anion Gap 5 mmol/L; Blood Urea Nitrogen 19 mg/dL (9-20); Calcium 8.7 mg/dL (8.4-10.2); Carbon Dioxide 29 mmol/L (22-30); Chloride 104 mmol/L (98-107); Glucose 92 mg/dL (74-99); Magnesium 2.1 mg/dL (1.6-2.3); Non-African American GFR(CKD) 85 (>60 ml/min/1.73 sqM); Phosphorus 2.8 mg/dL (2.5-4.5); Potassium 3.4 mmol/L (3.5-5.1); Sodium 138 mmol/L (137-145); Total Bilirubin 0.8 mg/dL (0.2-1.3); Total Protein 5.3 g/dL (6.3-8.2)
[2024-08-20 07:47] LABS: Anisocytosis Slight; Basophils % (A) 0 %; Eosinophils % (A) 0 %; HCT 45.1 % (39.0-53.0); Hypochromasia Slight; Lymphocytes # (A) 1.1 k/uL (1.0-4.8); Lymphocytes % (A) 10 %; MCH 28.3 pg (25.0-35.0); MCV 91.2 fL (80.0-100.0); Mean Platelet Volume 7.9; Monocytes # (A) 0.8 k/uL (0-1.0); Monocytes % (A) 7 %; Neutrophils # (A) 8.7 k/uL (1.3-7.7); Neutrophils % (A) 82 %; Platelet Count 144 k/uL (150-450); RBC 4.95 m/uL (4.30-5.90); WBC 10.6 k/uL (3.8-10.6)
[2024-08-20] MEDS: LOSARTAN 50 MG TAB PO SCH (09:25)
[2024-08-20] MEDS: POTASSIUM CHLORIDE ER 20 MEQ TAB.ER PO STA (09:26)
[2024-08-20] MEDS: hydroCHLOROthiazide 12.5 MG CAP PO SCH (12:35)
--- NOTE | 2024-08-20 13:13 | CA ---
Transthoracic Echo Report Name: Joaquin Fofana Age: 79 Gender: M : 1945 Exam Date: 08/20/2024 07:04 Exam Location: [place] [facility] Ht (in): 69 Wt (lb): 119 Ordering Physician: Lisa Vitale Attending/Referring Phys: [id number], Iam Chief Deputy Court Clerk Lois Martinez, ANURADHA Procedure CPT: Indications: LVF Cardiac Hx: A-fib, COPD, HTN, CHF Technical Quality: Good Contrast 1: Definity Total Dose (mL): 2 Contrast 2: Total Dose (mL): MEASUREMENTS (Male / Female) Normal Values 2D ECHO LV Diastolic Diameter PLAX 5.6 cm 4.2 - 5.9 / 3.9 - 5.3 cm LV Systolic Diameter PLAX 4.4 cm IVS Diastolic Thickness 1.1 cm 0.6 - 1.0 / 0.6 - 0.9 cm LVPW Diastolic Thickness 1.1 cm 0.6 - 1.0 / 0.6 - 0.9 cm LV Relative Wall Thickness 0.4 RV Internal Dim ED PLAX 3.3 cm LVOT Diameter 1.9 cm Aortic Root Diameter 3.6 cm LA Systolic Diameter LX 5.4 cm 3.0 - 4.0 / 2.7 - 3.8 cm LA Volume 88.3 cm??? 18 - 58 / 22 - 52 cm??? LA Volume Index 54.9 cm???/m??? 16 - 28 cm???/m??? DOPPLER AV Peak Velocity 209.6 cm/s AV Peak Gradient 17.6 mmHg AV Mean Velocity 139.3 cm/s AV Mean Gradient 8.9 mmHg AV Velocity Time Integral 46.7 cm MV Peak Velocity 136.4 cm/s MV Peak Gradient 7.4 mmHg MV Mean Velocity 47.1 cm/s MV Mean Gradient 1.4 mmHg MV Velocity Time Integral 35.0 cm MV Area PHT 3.0 cm??? Mitral E Point Velocity 86.4 cm/s Mitral A Point Velocity 28.1 cm/s Mitral E to A Ratio 3.1 MV Deceleration Time 182.5 ms TR Peak Velocity 279.0 cm/s TR Peak Gradient 31.1 mmHg Right Atrial Pressure 10.0 mmHg Pulmonary Artery Systolic Pressu 41.1 mmHg Right Ventricular Systolic Press 41.1 mmHg FINDINGS Left Ventricle Left ventricular ejection fraction is estimated at 45-50 %. Inferior basal and inferoseptal hypokinesis.left ventricular cavity size normal. Right Ventricle Mild right ventricular dilatation. Mild pulmonary hypertension. Right ventricular systolic pressure estimated at 41 mm hg. Right Atrium Severe right atrial dilatation. Left Atrium Severely increased left atrial diameter. Severely increased left atrial volume. Mildly increased left atrial area. Mitral Valve Mitral valve thickened. No mitral stenosis. mild mitral regurgitation. Aortic Valve Trileaflet aortic vave. Diffuse thickening of the aortic valve cusps with reduced opening. No aortic stenosis. Trace aortic regurgitation. Tricuspid Valve Structurally normal tricuspid valve. No tricuspid stenosis. Mild tricuspid regurgitation. Pulmonic Valve Pulmonic valve not well visualized. No pulmonic stenosis. Trace pulmonic regurgitation. Pericardium No pericardial effusion. Aorta Aortic root and proximal ascending aorta not well visualized. CONCLUSIONS 1. Mildly impaired left ventricular systolic function with segmental wall motion abnormality 2. Mild mitral and tricuspid regurgitation with mild pulmonary hypertension 3. Aortic sclerosis with decrease valve opening and trace aortic regurgitation. The mean gradient across the aortic valve was 9 mmHg Previewed by: Dr. Cedric Main MD (Electronically Signed) Final Date: 20 August 2024 13:12
--- NOTE | 2024-08-20 13:31 | P.PN ---
Subjective Progress Note Date: 08/20/24 Reason for Consult (text): Bradycardia, atrial fibrillation History of present illness: This is a 79-year-old male patient of Dr. Siegel with past medical history of right AKA, persistent atrial fibrillation on Eliquis, hypertension, hyperlipidemia, coronary artery disease with multiple stents in the past, PAD with abdominal aortic aneurysm status post EVAR with additional PAD, chronic kidney disease stage IV with history of temporary hemodialysis. We have been asked to evaluate the patient for bradycardia and atrial fibrillation. Apparently, patient was picked up from home due to mental status changes, incontinence of urine and fever. Patient is unable to provide any information. No family is at bedside. Information is obtained from the patient's record. Blood pressure 147/90, heart rate 47, pulse ox 99% on 2 L nasal cannula. Annika t is been started on IV Solu-Medrol, IV antibiotics status post 1 L of IV fluids. -EKG: Atrial fibrillation at a ventricular rate of 63 bpm. -Chest x-ray: Mild pulmonary vascular congestion with interstitial prominence may relate to pulmonary edema. -CT brain: No acute hemorrhage, hydrocephalus or mass effect. -Laboratory studies: WBC 8.5, hemoglobin 16, sodium 132, potassium 4.2, creatinine 0.88. Cepheid viral panel not detected. -Home cardiac medications: Amlodipine 10 mg daily, Eliquis 5 mg twice daily, aspirin 81 mg daily, atorvastatin 10 mg at bedtime, Coreg 25 mg twice daily, Lasix 30 mg daily. -Echocardiogram performed 09/11/2023: EF 50 to 55%, moderate to severe biatrial enlargement, mild right ventricular dilation, trace mitral regurgitation, no pericardial effusion. 08/20 Patient seen and examined. Blood pressure readings remain elevated. Blood pressure 172/75, heart rate 57, pulse ox 95% on room air. Heart rate has been running in the 50s and 60s. Echocardiogram reveals EF of 45 to 50% mildly impaired left ventricular systolic function with segmental wall motion abnorm ality. Mild mitral and tricuspid regurgitation with mild pulmonary hypertension. Aortic sclerosis with decreased valve opening and trace aortic regurgitation. Mean gradient across the aortic valve was 9 mmHg. Repeat blood work reveals hemoglobin 14, potassium 3.4, creatinine 0.83. Troponin negative. TSH normal at 0.7 Physical examination: Gen: This is a 79-year-old male in no acute distress VS: reviewed HEENT: Head is atraumatic, normocephalic. Pupils equal, round. Sclerae is anicteric. NECK: Supple. No JVD. LUNGS: Clear to auscultation. No wheezes or rhonchi. No intercostal retracti ons. HEART: Regular rate and rhythm. No murmur. ABDOMEN: Soft No tenderness. EXTREMITIES: Right [id number] amputation. No left pedal edema. No calf tenderness. NEUROLOGICAL: Patient is confused. Assessment: Metabolic encephalopathy Bradycardia History of right AKA Persistent atrial fibrillation on Eliquis Hypertension Hyperlipidemia Coronary artery disease with prior stents Abdominal aortic aneurysm status post EVAR Chronic kidney disease stage IV with history of temporary hemodialysis Plan: Continue patient's home cardiac medications Hold Coreg Continue losartan and increase to 100 mg daily No further cardiac workup at this time. Cardiology will sign off this case and follow on an as-needed basis. Please reconsult for any new concerns. Patient may follow-up in the office in one to [address] Siegel. Nurse practitioner note has been reviewed, I agree with documented findings and plan of care. Patient was seen and examined. Objective - Vital Signs Vital signs: Vital Signs Temp 98 F 08/19/24 23:30 Pulse 63 08/20/24 03:48 Resp 17 08/20/24 03:48 BP 156/71 08/20/24 03:48 Pulse Ox 95 08/19/24 23:09 FiO2 Intake & Output 08/19/24 08/20/24 08/20/24 18:59 06:59 18:59 Output Total 500 Balance -500 Weight 60.5 kg Output: Urine 500 Other: Voiding Method Urinal - Labs CBC & Chem 7: 08/20/24 06:29 08/20/24 06:29 Labs: Abnormal Lab Results - Last 24 Hours (Table) 08/20/24 08/20/24 Range/Units 06:29 06:29 RDW 16.0 H (11.5-15.5) % Plt Count 144 L (150-450) k/uL Neutrophils # 8.7 H (1.3-7.7) k/uL Potassium 3.4 L (3.5-5.1) mmol/L AST 14 L (17-59) U/L Total Protein 5.3 L (6.3-8.2) g/dL Albumin 3.1 L (3.5-5.0) g/dL Microbiology - Last 24 Hours (Table) 08/18/24 19:12 Blood Culture - Preliminary Blood
--- NOTE | 2024-08-20 14:28 | P.PN ---
Subjective Progress Note Date: 08/20/24 I am following up with the patient and he feels he is about the same. Denies any new neurological issues. Seems the patient cannot obtain MRI of the brain since he has scattered shrapnels. Objective - Vital Signs Vital signs: Vital Signs Temp 97.4 F L 08/20/24 12:33 Pulse 52 L 08/20/24 12:33 Resp 16 08/20/24 12:33 BP 160/81 08/20/24 12:33 Pulse Ox 97 08/20/24 12:33 FiO2 Intake & Output 08/19/24 08/20/24 08/20/24 18:59 06:59 18:59 Intake Total 180 Output Total 500 575 Balance -500 -395 Weight 60.5 kg Intake: Oral 180 Output: Urine 500 300 Stool 275 Other: Voiding Method Urinal Urinal - Exam GENERAL: The patient is lying in bed and is not in acute distress. HENT: Supple neck. NEUROLOGICAL: Higher mental function: The patient is awake, alert, oriented to self, place. She stated the year is 2025 and the month is September. Patient is following commands. No aphasia and no neglect. Cranial nerves: The pupils are round, equal and reactive to light and accommodation. Visual wheeler are full to confrontation throughout. Extraocular movement is intact no nystagmus is noted. Facial sensation is normal to touch throughout. The facial strength is normal throughout. Hearing is normal bilaterally to hand rub. Tongue is midline and moved [id number] without any difficulty. No dysarthria is noted. Shoulder shrug is normal bilaterally. Motor: The strength is 5 over 5 throughout. Normal tone and bulk. Has above knee amputation. Cerebellum: Normal finger to nose bilaterally. Sensation: Sensation is normal to touch throughout. Reflexes (right/left): 2+ throughout. Has above knee amputation. Plantars is mute on the left. Some of the workup during this hospital visit: Tmax was 100.2 Fahrenheit and no further fevers. White Blood cell is within normal limits at 8.5 thousand Sodium is 132, AST ALT, creatinine, serum glucose is within normal limits TSH is 0.70 Folic acid 6.5 Vitamin B12 is 394 TSH is 0.70 Ammonia is less than 9 CT of the head is reported as no acute hemorrhage, hydrocephalus or mass effect. I personally reviewed the CT and agree with the report I personally feel the patient had an old encephalomalacia over the right LUIS territory concerning for an old stroke. EEG is normal 2D echo is reported as aortic sclerosis with decreased valve opening and trace aortic regurgitation. - Labs CBC & Chem 7: 08/20/24 06:29 08/20/24 06:29 Labs: Abnormal Lab Results - Last 24 Hours (Table) 08/20/24 08/20/24 Range/Units 06: 06:29 RDW 16.0 H (11.5-15.5) % Plt Count 144 L (150-450) k/uL Neutrophils # 8.7 H (1.3-7.7) k/uL Potassium 3.4 L (3.5-5.1) mmol/L AST 14 L (17-59) U/L Total Protein 5.3 L (6.3-8.2) g/dL Albumin 3.1 L (3.5-5.0) g/dL Microbiology - Last 24 Hours (Table) 08/18/24 19:12 Blood Culture - Preliminary Blood Assessment and Plan Assessment: This is a 79-year-old gentleman who presents the emergency department because of altered mental status and urinary incontinence. Patient states that when his granddaughter checked up on him he was not answering questions appropriately. He feels back to baseline. CT of the head is unremarkable for any acute process. Patient had bradycardia as low as 30s. One-time low-grade fever but white blood cell is within normal limits Encephalopathy of unknown etiology. This does not seem meningoencephalitis, since patient is back to baseline quickly and no significant high fever or focality. Patient does not have any focal deficit and unlikely stroke. Unsure if patient bradycardia led to his episode of confusion Bradycardia as low as 30s 1 low-grade fever unknown etiology Low normal folic acid (6.5) Underlying atrial fibrillation and is on Eliquis History of peripheral arterial disease status post above the right knee amputation CT of the head I feel the patient has encephalomalacia over the right right LUIS territory concerning for old stroke History of diastolic congestive heart failure Hypertension COPD Tobacco use Plan: Unable to obtain MRI since has scattered shrapnels. I will get repeat CT head for tomorrow. For low normal folate level, started on folic acid 1mg daily. Patient is on Eliquis 5 mg twice daily as well as aspirin 81 mg daily. The patient is also on Lipitor 10 mg nightly. Patient was given ceftriaxone by the ED team. Cardiology is consulted Consider infectious disease consultation for unknown because of low-grade fever Will defer the rest of the medical management to primary other specialist Plan discussed with the patient and the primary attending Time with Patient: Less than 30
--- NOTE | 2024-08-20 15:38 | P.PN ---
Subjective Progress Note Date: 08/20/24 Patient is a 79-year-old male with a PMH of paroxysmal A-fib on Eliquis, diastolic CHF, COPD, hypertension, PAD status post right AKA, and hyperlipidemia who presents to the emergency room brought in by granddaughter for confusion. The patient notes that he is not sure why he is in the emergency room. He however denied any active complaints at the time of interview. Denied experiencing chest discomfort, shortness of breath, fever, chills, cough, nausea, vomiting, abdominal pain, diarrhea. CT brain emergency room was unremarkable with chest x-ray showing mild pulmonary vascular congestion. EKG revealed A-fib at [address]/T wave changes noted as reviewed by me. Laboratory evaluation was remarkable for sodium 132, chloride 95, lactic acid 1.0, respiratory viral panel negative, UA unremarkable. The patient did have a Tmax of 100.2 F in the emergency room and had episodes of bradycardia with A-fib as low as 30s. 08/20/2024 patient seen and examined at bedside. No acute events overnight. Spoke with family and mentioned that patient was independent with his ADLs and ANO x 3 on a daily basis. Labs today showed WBC 10.6, hemoglobin 14, platelet count 1 44,000, sodium 138, potassium 3.4, bicarb 29, BUN 19, creatinine 0.93, glucose 92, calcium 8.7, magnesium 2.1, B12 394, folate 6.5, TSH 0.7. AST 14, ALT 12, alk phos 48, total Leo 0.8. Troponins negative. EEG was normal with no focal slowing or epileptiform discharges or seizure. Echocardiogram showed left ventricular ejection fraction 45 to 50% with segmental wall motion abnormality, mild mitral and tricuspid regurgitation with mild pulmonary hypertension, aortic sclerosis with decreased valve opening and trace aortic regurgitation. Review of systems: Pertinent positives and negatives as discussed in HPI, a complete review of systems was performed and all other systems are negative. Pertinent imaging and labs reviewed. Physical examination: Vital signs reviewed General: non toxic, no distress, appears at stated age Derm: no unusual rashes/lesions, warm Head: atraumatic, normocephalic, symmetric Eyes: EOMI, anicteric sclera, pupils equal round reactive to light ENT: Nose and ears atraumatic Neck: No cervical lymphadenopathy, trachea midline, supple Mouth: no lip lesion, mucus membranes moist Cardiovascular: S1S2 reg, no murmur Lungs: CTA bilateral, no rhonchi, no rales, no accessory muscle use Abdominal: soft, nontender to palpation, no guarding Ext: muscle strength 5 out of 5 in all 4 extremities grossly, no gross muscle atrophy, no contractures, positive dorsalis pedis pulse bilateral, no edema Neuro: CN II-XI grossly intact, no gross focal neuro deficits Psych: Alert and oriented x2, appropriate affect and mood Assessment/Plan: #. Acute encephalopathy rule out other etiologies -EEG done showed normal results, negative procedures -TSH, ammonia, B12, folate all normal -Spoke with granddaughter. Patient is not at baseline regarding his mentation at this time at this time. -Discussed with neurology, agreed with decreasing gabapentin to 100 mg 3 times daily #. Hypokalemia -Potassium 3.4 -Replete orally 40 milliequivalents potassium p.o. -Recheck potassium after repletion #. Bradycardia #. Systolic heart failure with mildly reduced EF -Echocardiogram showed left ventricular ejection fraction 45 to 50% with segmental wall motion abnormality, mild mitral and tricuspid regurgitation with mild pulmonary hypertension, aortic sclerosis with decreased valve opening and trace aortic regurgitation. -Troponins negative -Cardiology consulted. Coreg was held, signed off #. Hypertensive urgency -Blood pressure ranging from 180-190s SBP -Added hydrochlorothiazide 12.5 daily -Continue losartan at 100 mg p.o. daily and amlodipine 10 mg p.o. daily -Continue to monitor vitals #. Hypochloremic hyponatremia, resolved Chronic conditions: #. CHF not in exacerbation #. COPD, not in exacerbation #. Hypertension #. PAD #. Hyperlipidemia -Resume home tamsulosin p.o., Eliquis p.o., aspirin p.o., atorvastatin p.o., finasteride p.o., and furosemide 30 mg p.o. daily -Initiate GDMT for heart failure on discharge F: Oral intake E: None for now N: Regular diet A: Fall precautions DVT prophylaxis: Eliquis 5 mg p.o. twice daily Brooke Serrano MD PGY-1/Head End Desizing Machine Operator Dictation was produced using [employer] dictation software. please excuse any grammatical, word or spelling errors. I have seen and evaluated the patient today. Discussed with the resident and agree with the residents finding and plan as documented in the resident's note. Changes highlighted in blue font. Objective - Vital Signs Vital signs: Vital Signs Temp 98 F 08/19/24 23:30 Pulse 63 08/20/24 03:48 Resp 17 08/20/24 03:48 BP 156/71 08/20/24 03:48 Pulse Ox 95 08/19/24 23:09 FiO2 Intake & Output 08/19/24 08/20/24 08/20/24 18:59 06:59 18:59 Output Total 500 Balance -500 Weight 60.5 kg Output: Urine 500 Other: Voiding Method Urinal - Labs CBC & Chem 7: 08/20/24 06:29 08/20/24 06:29 Labs: Abnormal Lab Results - Last 24 Hours (Table) 08/20/24 08/20/24 Range/Units 06:29 06:29 RDW 16.0 H (11.5-15.5) % Plt Count 144 L (150-450) k/uL Neutrophils # 8.7 H (1.3-7.7) k/uL Potassium 3.4 L (3.5-5.1) mmol/L AST 14 L (17-59) U/L Total Protein 5.3 L (6.3-8.2) g/dL Albumin 3.1 L (3.5-5.0) g/dL Microbiology - Last 24 Hours (Table) 08/18/24 19:12 Blood Culture - Preliminary Blood
[2024-08-20] MEDS: GABAPENTIN 100 MG CAP PO SCH (16:10)
[2024-08-20] MEDS: FOLIC ACID 1 MG TAB PO SCH (16:10)
[2024-08-20 20:44] VITALS: RESP 18
[2024-08-21 07:56] VITALS: BP 159/75
--- NOTE | 2024-08-21 08:33 | CT ---
EXAMINATION TYPE: CT brain wo con DATE OF EXAM: 08/21/2024 COMPARISON: CT brain 2 days earlier CLINICAL INDICATION: Male, 79 years old with history of ams, AMS TECHNIQUE: CT scan of the head is performed without contrast. CT DLP: 1128.4 mGycm. Automated Exposure Control for Dose Reduction was Utilized. FINDINGS: There is no acute intracranial hemorrhage or midline shift identified. There is mild to m oderate diffuse ventricular and sulcal prominence redemonstrated. There is moderate to advanced low- attenuation in the deep and periventricular redemonstrated. Patchy soft tissue density consistent wi th cerumen is again seen in the bilateral external auditory canals. There is distal arterial vascular calcification of the internal carotid arteries redemonstrated. The globes are intact and the visuali zed sinuses are clear. IMPRESSION: No acute intracranial hemorrhage or midline shift. There is mild to moderate diffuse ag e-related cerebral atrophy and moderate to severe chronic small vessel ischemic change redemonstrated . No significant change from most recent prior CT. [facility], , 08/21/2024 8:31 AM
[2024-08-21 08:48] LABS: Anisocytosis Slight; Basophils # (A) 0.1 k/uL (0-0.2); Basophils % (A) 1 %; Eosinophils # (A) 0.2 k/uL (0-0.7); Eosinophils % (A) 2 %; HCT 48.3 % (39.0-53.0); HGB 14.6 gm/dL (13.0-17.5); Hypochromasia Slight; Lymphocytes # (A) 1.6 k/uL (1.0-4.8); Lymphocytes % (A) 20 %; MCH 27.9 pg (25.0-35.0); MCHC 30.3 g/dL (31.0-37.0); MCV 92.1 fL (80.0-100.0); Mean Platelet Volume 7.9; Monocytes # (A) 0.6 k/uL (0-1.0); Monocytes % (A) 7 %; Neutrophils # (A) 5.7 k/uL (1.3-7.7); Neutrophils % (A) 70 %; Platelet Count 162 k/uL (150-450); RBC 5.24 m/uL (4.30-5.90); WBC 8.3 k/uL (3.8-10.6)
[2024-08-21 09:03] LABS: African American GFR (CKD) >90 (>60 ml/min/1.73 sqM); Anion Gap 4 mmol/L; Blood Urea Nitrogen 23 mg/dL (9-20); Calcium 8.8 mg/dL (8.4-10.2); Carbon Dioxide 34 mmol/L (22-30); Chloride 98 mmol/L (98-107); Glucose 95 mg/dL (74-99); Non-African American GFR(CKD) 79 (>60 ml/min/1.73 sqM); Potassium 3.3 mmol/L (3.5-5.1); Sodium 136 mmol/L (137-145)
[2024-08-21] MEDS: POTASSIUM CHLORIDE ER 20 MEQ TAB.ER PO STA (10:58)
[2024-08-21 11:29] VITALS: PULSE 55; TEMP 97.6
--- NOTE | 2024-08-21 13:52 | P.PN ---
Subjective Progress Note Date: 08/21/24 I am following up with the patient and he is about the same. No new neurological issues. Objective - Vital Signs Vital signs: Vital Signs Temp 97.6 F 08/21/24 11:24 Pulse 55 L 08/21/24 11:24 Resp 18 08/21/24 11:24 BP 159/75 08/21/24 07:55 Pulse Ox 95 08/21/24 11:24 FiO2 Intake & Output 08/20/24 08/21/24 08/21/24 18:59 06:59 18:59 Intake Total 540 240 360 Output Total 1925 400 Balance -1385 240 -40 Weight 60.5 kg Intake: Oral 540 240 360 Output: Urine 1650 400 Stool 275 Other: Voiding Method Urinal Urinal # Voids 2 - Exam GENERAL: The patient is lying in bed and is not in acute distress. HENT: Supple neck. NEUROLOGICAL: Higher mental function: The patient is awake, alert, oriented to self, place. She stated the year is 2025 and the month is September. Patient is following commands. No aphasia and no neglect. Cranial nerves: The pupils are round, equal and reactive to light and accommodation. Visual wheeler are full to confrontation throughout. Extraocular movement is intact no nystagmus is noted. Facial sensation is normal to touch throughout. The facial strength is normal throughout. Hearing is normal bilaterally to hand rub. Tongue is midline and moved [id number] without any difficulty. No dysarthria is noted. Shoulder shrug is normal bilaterally. Motor: The strength is 5 over 5 throughout. Normal tone and bulk. Has above knee amputation. Cerebellum: Normal finger to nose bilaterally. Sensation: Sensation is normal to touch throughout. Reflexes (right/left): 2+ throughout. Has above knee amputation. Plantars is mute on the left. Some of the workup during this hospital visit: Tmax was 100.2 Fahrenheit and no further fevers. White Blood cell is within normal limits at 8.5 thousand Sodium is 132, AST ALT, creatinine, serum glucose is within normal limits TSH is 0.70 Folic acid 6.5 Vitamin B12 is 394 TSH is 0.70 Ammonia is less than 9 CT of the head is reported as no acute hemorrhage, hydrocephalus or mass effect. I personally reviewed the CT and agree with the report I personally feel the patient had an old encephalomalacia over the right LUIS territory concerning for an old stroke. EEG is normal 2D echo is reported as aortic sclerosis with decreased valve opening and trace aortic regurgitation. CT of the head today is reported as no acute intracranial hemorrhage or midline shift. No significant change from most recent prior CT. - Labs CBC & Chem 7: 08/21/24 07:52 08/21/24 07:52 Labs: Abnormal Lab Results - Last 24 Hours (Table) 08/20/24 08/21/24 08/21/24 Range/Units 19:03 07:52 07:52 MCHC 30.3 L (31.0-37.0) g/dL RDW 16.0 H (11.5-15.5) % Sodium 136 L (137-145) mmol/L Potassium 3.4 L 3.3 L (3.5-5.1) mmol/L Carbon Dioxide 34 H (22-30) mmol/L BUN 23 H (9-20) mg/dL Microbiology - Last 24 Hours (Table) 08/18/24 19:12 Blood Culture - Preliminary Blood Assessment and Plan Assessment: This is a 79-year-old gentleman who presents the emergency department because of altered mental status and urinary incontinence. Patient states that when his granddaughter checked up on him he was not answering questions appropriately. He feels back to baseline. CT of the head is unremarkable for any acute process. Patient had bradycardia as low as 30s. One-time low-grade fever but white blood cell is within normal limits Encephalopathy of unknown etiology. This does not seem meningoencephalitis, since patient is back to baseline quickly and no significant high fever or focality. Patient does not have any focal deficit and unlikely stroke. Unsure if patient bradycardia led to his episode of confusion Bradycardia as low as 30s 1 low-grade fever unknown etiology Low normal folic acid (6.5) Underlying atrial fibrillation and is on Eliquis History of peripheral arterial disease status post above the right knee amputation CT of the head I feel the patient has encephalomalacia over the right right LUIS territory concerning for old stroke History of diastolic congestive heart failure Hypertension COPD Tobacco use Plan: Unable to obtain MRI since has scattered shrapnels. Repeat CT of the head is unremarkable. For low normal folate level, started on folic acid 1mg daily. Patient is on Eliquis 5 mg twice daily as well as aspirin 81 mg daily. The patient is also on Lipitor 10 mg nightly. Patient was given ceftriaxone by the ED team. Cardiology is consulted Consider infectious disease consultation for unknown because of low-grade fever Will defer the rest of the medical management to primary other specialist Plan discussed with the primary attending. Will follow-up with patient sporadically. Time with Patient: Less than 30
--- NOTE | 2024-08-21 17:30 | P.DS ---
Providers Date of admission: 08/19/24 02:25 Expected date of discharge: 08/21/24 Attending physician: Christophe Siegel MD Consults: 08/19/24 03:49 Consult Physician Routine Consulting Provider: Cedric Main Consult Reason/Comments: bradycardia,afib Do you want consulting provider notified?: Yes 08/19/24 05:19 Consult Physician Urgent Consulting Provider: lE Osorio Consult Reason/Comments: Altered mental sttaus Do you want consulting provider notified?: Yes Primary care physician: [facility] Course: Hospital Course: Patient is a 79-year-old male with a PMH of paroxysmal A-fib on Eliquis, diastolic CHF, COPD, hypertension, PAD status post right AKA, and hyperlipidemia who presents to the emergency room brought in by granddaughter for confusion. CT brain emergency room was unremarkable with chest x-ray showing mild pulmonary vascular congestion. EKG revealed A-fib at [address]/T wave changes noted as reviewed by me. Laboratory evaluation was remarkable for sodium 132, chloride 95, lactic acid 1.0, respiratory viral panel negative, UA unremarkable. The patient did have a Tmax of 100.2 F in the emergency room and had episodes of bradycardia with A-fib as low as 30s. Patient was admitted for evaluation of acute encephalopathy, bradycardia, hypertensive urgency. Was found to be hypokalemic on labs. Ordered cardiac telemetry, EEG, TSH, troponins, ammonia, B12, folate, potassium repletion, echocardiogram, antihypertensives. Cardiology and neurology consulted.EEG was normal with no focal slowing or epileptiform discharges or seizure. Echocardiogram showed left ventricular ejection fraction 45 to 50% with segmental wall motion abnormality, mild mitral and tricuspid regurgitation with mild pulmonary hypertension, aortic sclerosis with decreased valve opening and trace aortic regurgitation. Repeat brain CT showed no acute process or midline shift. TSH, troponins, ammonia, B12, folate were all negative. Blood pressure was controlled and potassium was corrected throughout hospital stay. Patient's mentation improved throughout hospital stay. Patient was able to remain independent with ADLs and is safe to discharge home. Patient is prescribed hydrochlorothiazide, losartan, and folic acid. Patient's home carvedilol and Lasix were discontinued. His home gabapentin dose was decreased to 100 mg daily and it is recommended to slowly taper to discontinue his gabapentin altogether. Patient is advised to follow-up with PCP and multiple coil winder regarding bradycardia episodes and to optimize medications for heart failure. Final Diagnosis: #. Acute encephalopathy, likely from medications #. Hypokalemia, resolved #. Bradycardia #. Hypertensive urgency, resolved #. Hypochloremic hyponatremia, resolved Physical examination: Vital signs reviewed General: non toxic, no distress Derm: no unusual rashes/lesions, warm Head: atraumatic, normocephalic, symmetric Eyes: EOMI, anicteric sclera, pupils equal round reactive to light ENT: Nose and ears atraumatic Neck: No cervical lymphadenopathy, trachea midline, supple Mouth: no lip lesion, mucus membranes moist Cardiovascular: S1S2 reg, no murmur Lungs: CTA bilateral, no rhonchi, no rales, no accessory muscle use Abdominal: soft, nondistended, nontender to palpation, no guarding Ext: muscle strength 5 out of 5 in all 4 extremities grossly, no gross muscle at rophy, no contractures, positive dorsalis pedis pulse, no edema, right AKA noted Neuro: CN II-XI grossly intact, no gross focal neuro deficits Psych: Alert, oriented, appropriate affect and mood A total of 36 minutes of time were spent preparing this complex discharge summary. Patient was discharged on 08/21/2024 at 1416. I have seen and evaluated the patient today. Discussed with the resident and agree with the residents finding and plan as documented in the resident's note. Changes highlighted in blue font. Patient Condition at Discharge: Fair Plan - Discharge Summary Discharge Rx Participant: No New Discharge Prescriptions: New Folic Acid 1 mg PO DAILY #90 tab hydroCHLOROthiazide [Hydrodiuril] 12.5 mg PO DAILY #60 cap Losartan [Cozaar] 100 mg PO DAILY #60 tab Gabapentin [Neurontin] 100 mg PO DAILY #60 cap Continue Tamsulosin [Flomax] 0.4 mg PO DAILY amLODIPine [Norvasc] 10 mg PO DAILY Atorvastatin [Lipitor] 10 mg PO HS Finasteride [Proscar] 5 mg PO DAILY Aspirin EC [Ecotrin Low Dose] 81 mg PO DAILY Acetaminophen Tab [Tylenol] 325 mg PO QID Apixaban [Eliquis] 5 mg PO BID Discontinued carvediloL [Coreg] 25 mg PO BID Gabapentin [Neurontin] 300 mg PO TID Furosemide [Lasix] 30 mg PO DAILY Discharge Medication List Tamsulosin [Flomax] 0.4 mg PO DAILY 09/02/23 [History] amLODIPine [Norvasc] 10 mg PO DAILY 09/17/23 [History] Apixaban [Eliquis] 5 mg PO BID 10/31/23 [History] Acetaminophen Tab [Tylenol] 325 mg PO QID 08/18/24 [History] Aspirin EC [Ecotrin Low Dose] 81 mg PO DAILY 08/18/24 [History] Atorvastatin [Lipitor] 10 mg PO HS 08/18/24 [History] Finasteride [Proscar] 5 mg PO DAILY 08/18/24 [History] Folic Acid 1 mg PO DAILY #90 tab 08/21/24 [Rx] Gabapentin [Neurontin] 100 mg PO DAILY #60 cap 08/21/24 [Rx] Losartan [Cozaar] 100 mg PO DAILY #60 tab 08/21/24 [Rx] hydroCHLOROthiazide [Hydrodiuril] 12.5 mg PO DAILY #60 cap 08/21/24 [Rx] Follow up Appointment(s)/Referral(s): Johnny Siegel DO [STAFF PHYSICIAN] - 08/28/24 3:45 pm [facility] [NON-STAFF] - As Needed Jignesh Renteria DO [Primary Care Provider] - 1-2 days ([phone]) Patient Instructions/Handouts: Bradycardia (DC), Hypertension (DC) Activity/Diet/Wound Care/Special Instructions: Please see your PCP for follow up. Please see cardiology for low heart rate Discharge Disposition: HOME SELF-CARE
== END 2024-08-21 16:23 | disposition home or self-care (01) | DRG 91 ==
LOC: EC 18:27 → 3SCARD 08-19 02:24 → OBSVTOIN 08-19 02:25 → 3SCARD 08-19 07:15
PROVIDERS: ADMIT Internal Medicine; ATTEND Internal Medicine
PROC: 4A10X4Z Monitoring of Central Nervous Electrical Activity, External Approach (ICD-10-PCS; principal; 2024-08-19)
DX: G92.8 Other toxic encephalopathy (principal); G93.41 Metabolic encephalopathy; E87.1 Hypo-osmolality and hyponatremia; I13.0 Hypertensive heart and chronic kidney disease with heart failure and stage 1 through stage 4 chronic kidney disease, or unspecified chronic kidney disease; I27.20 Pulmonary hypertension, unspecified; I48.19 Other persistent atrial fibrillation; I16.0 Hypertensive urgency; G93.89 Other specified disorders of brain; N18.4 Chronic kidney disease, stage 4 (severe); J44.9 Chronic obstructive pulmonary disease, unspecified; F32.A Depression, unspecified; I70.0 Atherosclerosis of aorta; I08.3 Combined rheumatic disorders of mitral, aortic and tricuspid valves; I50.42 Chronic combined systolic (congestive) and diastolic (congestive) heart failure; Z89.611 Acquired absence of right leg above knee; R00.1 Bradycardia, unspecified; Z11.52 Encounter for screening for COVID-19; T50.905A Adverse effect of unspecified drugs, medicaments and biological substances, initial encounter; E78.5 Hyperlipidemia, unspecified; E87.6 Hypokalemia; E87.8 Other disorders of electrolyte and fluid balance, not elsewhere classified; F43.10 Post-traumatic stress disorder, unspecified; H91.90 Unspecified hearing loss, unspecified ear; I25.10 Atherosclerotic heart disease of native coronary artery without angina pectoris; I73.9 Peripheral vascular disease, unspecified; R29.6 Repeated falls; R32 Unspecified urinary incontinence; Z79.01 Long term (current) use of anticoagulants; Z79.82 Long term (current) use of aspirin; Z79.899 Other long term (current) drug therapy; Z82.49 Family history of ischemic heart disease and other diseases of the circulatory system; Z86.718 Personal history of other venous thrombosis and embolism; Z86.73 Personal history of transient ischemic attack (TIA), and cerebral infarction without residual deficits; Z86.79 Personal history of other diseases of the circulatory system; Z87.891 Personal history of nicotine dependence; Z95.5 Presence of coronary angioplasty implant and graft; R50.9 Fever, unspecified; M19.90 Unspecified osteoarthritis, unspecified site; Z87.19 Personal history of other diseases of the digestive system; X58.XXXA Exposure to other specified factors, initial encounter
CPT/HCPCS: 36415; 70450; 71046; 80048; 80053; 81001; 82140; 82607; 82746; 83605; 83735; 84100; 84132; 84443; 84484; 85025; 85610; 85730; 87040; 87636; 93005; 93306; 95816; 96361; 96365; 96368; 96375; 99285

== ENCOUNTER → 2024-12-29 | Outpatient (CLI) | payer MEDICARE, BC ==
--- NOTE | 2024-12-29 12:45 | US ---
EXAMINATION TYPE: US venous doppler duplex LE RT DATE OF EXAM: 12/29/2024 12:11 PM COMPARISON: 06/23/2024 and 03/07/2024 CLINICAL INDICATION: Male, 79 years old with history of I80.10 PHLEBITIS AND THROMBOPHLEBITIS; pt has hx of DVT within rt leg, rt amputee below due to clot behind knee TECHNIQUE: The lower extremity deep venous system is examined utilizing real time linear array sonog elias with graded compression, doppler sonography and color-flow sonography. Grayscale, color doppler , spectral doppler imaging performed of the deep veins of the lower extremities FINDINGS: SIDE PERFORMED: Rt VESSELS IMAGED: Common Femoral Vein Deep Femoral Vein Greater Saphenous Vein * Femoral Vein Popliteal Vein Small Saphenous Vein * Proximal Calf Veins (* superficial vessels) Right Leg: appearance of chronic dvt as shown in prior exams, partial compression, thready flow seen throughout CFV through FV Distally; Right groin Arterial finding again seen: approx: 4.7x2.3x4.2cm. Back on 03/07/2024, this was measured at 4.6 x 3.1 cm. Measurement not taken on the 06/23/2024 exam. IMPRESSION: 1. Chronic DVT with thready flow and partial compression identified right lower extremity from the CF V down through the lower femoral vein. 2. Large abnormality in the right groin measuring 4.7 x 4.2 x 2.3 cm. Suspect thrombosed pseudoaneury sm/hematoma. No color-flow is demonstrated here. This is not fully measured on prior studies. Measure ments of 4.6 x 3.1 cm were provided on 03/07/2024. Consider vascular surgery evaluation if no follow-u p has been performed for this area. [facility], , 12/29/2024 12:43 PM
--- NOTE | 2024-12-29 12:48 | US ---
EXAMINATION TYPE: US venous doppler duplex UE RT DATE OF EXAM: 12/29/2024 COMPARISON: 06/23/2024 CLINICAL INDICATION: Male, 79 years old with history of I80.10 PHLEBITIS AND THROMBOPHLEBITIS; Pt has hx of clot within Rt IJV TECHNIQUE: Grayscale, color Doppler and spectral Doppler imaging of the upper extremity. SIDE PERFORMED: Right VESSELS IMAGED: IJV Subclavian Vein Axilla Vein Brachial Vein(s) Radial Paired Veins Ulnar Paired Veins Cephalic Vein* Basilic Vein* (*superficial vessels) FINDINGS: [employer] notes: Very limited scan due to vessel size Right Arm: appears negative for DVT, very limited views due to vessel size, Rt Cephalic V not seen on today's [facility] IMPRESSION: Limited scan as above due to small vessel size. Unable to visualize the cephalic vein on today's stud y. No right upper extremity DVT is identified. [facility], , 12/29/2024 12:46 PM
== END | disposition home or self-care (01) ==
LOC: RADUSWWP 11:25
PROVIDERS: ATTEND Internal Medicine Hematology & Oncology
DX: I80.10 Phlebitis and thrombophlebitis of unspecified femoral vein (principal); Z86.718 Personal history of other venous thrombosis and embolism